=== PATIENT | female | born 1985 | race Caucasian/White ===

== ENCOUNTER 2022-10-15 22:23 | Outpatient (REF) | payer BC, SELFPAY ==
[2022-10-20 10:11] LABS: Age Gdln ACOG Testing Note (.); HPV Aptima Negative (Negative); IGP, Aptima HPV, rfx 16/18,45 Note (.)
== END 2022-10-15 22:24 | disposition home or self-care (01) ==
LOC: LAB 22:23
PROVIDERS: Visit Provider Obstetrics & Gynecology
DX: Z12.4 Encounter for screening for malignant neoplasm of cervix (principal)
CPT/HCPCS: 87624; G0145

== ENCOUNTER 2022-10-16 11:03 | Outpatient (OUT) | payer BC, SELFPAY ==
--- NOTE | 2022-10-16 11:08 | US_ITS ---
The [address] [address] Patient Name: OTTO DEL ROSARIO MRN: [id number] date: 1985 Sex: F Assigned Patient Location: US Current Patient Location: US Accession/Order Number: [id number] Exam Date: 10/16/2022 11:20 Report Date: 10/16/2022 13:09 At the request of: ELISSA SWIFT Procedure: US pelvis transvaginal EXAM: US pelvis transvaginal HISTORY: Enlarged uterus (N85.2) COMPARISON: Pelvic ultrasound 08/20/2021. TECHNIQUE: Real-time transvaginal imaging of the pelvis. Findings: The uterus is not identified consistent with hysterectomy. There are nabothian cysts identified. The right and left ovaries measure 1.8 x 1.4 x 1.7 and 3.8 x 3.4 x 2.5 cm. Left ovarian follicles. Otherwise, they are unremarkable bilaterally with blood flow identified. No adnexal mass or free pelvic fluid. IMPRESSION: 1. Surgically absent uterus. Electronically authenticated by: HARSH KEENAN Date: 10/16/2022 13:09
== END 2022-10-16 11:04 ==
LOC: US 11:04
PROVIDERS: Visit Provider Obstetrics & Gynecology
DX: N88.8 Other specified noninflammatory disorders of cervix uteri (principal); Z90.710 Acquired absence of both cervix and uterus
CPT/HCPCS: 76830

== ENCOUNTER 2023-02-24 11:53 | Emergency (ER) | payer BC, SELFPAY ==
[2023-02-24 12:02] VITALS: BP 156/108; PULSE 80; RESP 20; TEMP 36.5; O2SAT 100; BMI 31.1
--- NOTE | 2023-02-24 12:38 | ED.ABDPAIN1 ---
HPI - Abdominal Pain General Chief Complaint: Abdominal Pain Stated Complaint: ABDOMINAL PAIN Time Seen by Provider: 02/24/23 12:03 Source: patient Mode of arrival: walk-in Limitations: no limitations History of Present Illness HPI narrative: Developed left sided abdominal pain two days ago - pain radiates into the left flank and is associated with nausea, diarrhea. No vomiting. No fever or chills. Saw her PCP and was told to come to the Er for a CT scan and antibiotics . PMHX includes IBS but no dx of Crohn's, UC, diverticulitis. Prev had kidney stones but this feels totally different . PSHx = hysterectomy. Nothing taken for pain at home Related Data Home Medications Medication Instructions Recorded Confirmed atenolol 25 mg tablet 25 mg PO DAILY 02/24/23 02/24/23 cholecalciferol (vitamin D3) 50 2,000 unit PO DAILY 02/24/23 02/24/23 mcg (2,000 unit) tablet duloxetine 60 mg capsule,delayed 60 mg PO DAILY 02/24/23 02/24/23 release omeprazole 40 mg capsule,delayed 40 mg PO DAILY 02/24/23 02/24/23 release ondansetron 4 mg disintegrating 4 mg translingual Q6H PRN nausea 02/24/23 02/24/23 tablet and vomiting oxcarbazepine 300 mg tablet 300 mg PO DAILY 02/24/23 02/24/23 semaglutide 0.25 mg or 0.5 mg (2 0.25 mg subcut QWEEK 02/24/23 02/24/23 mg/3 mL) subcutaneous pen injector (Ozempic) topiramate 50 mg tablet 50 mg PO DAILY 02/24/23 02/24/23 Previous Rx's Medication Instructions Recorded hydrocodone 5 mg-acetaminophen 325 1 tab PO Q6H PRN pain #14 tabs 02/24/23 mg tablet ketorolac 10 mg tablet 10 mg PO Q8H PRN pain #14 tabs 02/24/23 ondansetron 4 mg disintegrating 4 mg PO Q6H PRN nausea and 02/24/23 tablet vomiting #14 tabs tamsulosin 0.4 mg capsule (Flomax) 0.4 mg PO DAILY #10 caps 02/24/23 Allergies Allergy/AdvReac Type Severity Reaction Status Date / Time No Known Drug Allergies Allergy Verified 02/24/23 11:57 PFSH PFSH Social History Smoking status: Never smoker Exam Narrative Exam Narrative: Nurses notes and vital signs reviewed and patient is not hypoxic. afebrile General: Well-appearing and in no apparent distress. Skin: Warm, dry, no pallor noted. No rash to flank or abdomen. Head: Normocephalic, atraumatic. Eye: Pupils are equal, round and EOMI. No scleral icterus. Cardiovascular: Regular Rate and Rhythm without murmur, gallop or rub. Respiratory: No accessory muscle use or respiratory distress. Lungs are clear to auscultation, no wheezing, rales or rhonchi Back: No midline thoracic or lumbar vertebral tenderness. Left CVA tenderness Musculoskeletal: normal ROM, no calf or popliteal tenderness, no lower extremity edema/swelling GI: Abdomen is soft, mildly distended. Normal bowel sounds. No solid or pulsatile masses appreciated. Diffuse umbilical, suprapubic and left sided tenderness to palpation with guarding. No rebound or rigidity noted. Neurological: A&O x4. No cranial nerve dysfunction observed. No truncal ataxia. Moves all extremities. Sensation intact. Psychiatric: Cooperative and interactive. Normal mood and affect. Constitutional Vital Signs, click to edit/add: Last Vital Signs Temp 97.7 F 02/24/23 12:02 Pulse 80 02/24/23 12:02 Resp 20 02/24/23 12:02 BP 156/108 H 02/24/23 12:02 Pulse Ox 100 02/24/23 12:02 O2 Del Method Room Air 02/24/23 12:02 Course Vital Signs Vital signs: Vital Signs Temperature 97.7 F 02/24/23 12:02 Pulse Rate 80 02/24/23 12:02 Respiratory Rate 20 02/24/23 12:02 Blood Pressure 156/108 H 02/24/23 12:02 Pulse Oximetry 100 02/24/23 12:02 Oxygen Delivery Method Room Air 02/24/23 12:02 Temperature 97.7 F 02/24/23 12:02 Pulse Rate 80 02/24/23 12:02 Respiratory Rate 20 02/24/23 12:02 Blood Pressure 156/108 H 02/24/23 12:02 Pulse Oximetry 100 02/24/23 12:02 Oxygen Delivery Method Room Air 02/24/23 12:02 MDM - Abdominal Pain MDM Narrative Medical decision making narrative: peripheral IV established and blood drawn and sent for testing. Urine was also ordered to be obtained and sent for testing. The patient was ordered to undergo CT scanning of the abdomen and pelvis with IV contrast. She was ordered to receive IV Toradol, IV Zofran and IV Dilaudid. Normal WBC, minimally decreased K+, Normal Lipase, negative UA. CT revealed 5mm left ureteral stone and additional bilateral nephroliths without obstruction, per radiologist. Additionally there is a left anterior abdominal wall vascular mass. I spoke to the radiologist and that is something that they can do here at [facility]. Tried to call Magy to schedule but she is out today. I left her a message and gave the patient an written prescription for the out-patient procedure - Magy will contact her to schedule. Lab Data Attestation: I reviewed the patient's lab results. Labs: Lab Results 02/24/23 Range/Units 12:16 WBC 10.7 (4.0-11.0) 10^3/uL RBC 5.38 (4.20-5.40) 10^6/uL Hgb 15.3 (12.0-16.0) g/dL Hct 47.2 (36.0-48.0) % MCV 87.7 (81.0-99.0) fL MCH 28.4 (26.7-34.0) pg MCHC 32.4 (29.9-35.2) g/dL RDW 12.5 (11.0-15.0) % Plt Count 394 (150-450) 10^3/uL MPV 8.9 L (9.5-13.5) fL Neut % (Auto) 58.4 (43.0-75.0) % Lymph % (Auto) 32.0 (20.5-60.0) % Robertson % (Auto) 7.2 (1.7-12.0) % Eos % (Auto) 1.3 (0.9-7.0) % Baso % (Auto) 0.8 (0.2-2.0) % Neut # (Auto) 6.3 (1.4-6.5) 10^3/uL Lymph # (Auto) 3.4 (1.2-3.8) 10^3/uL Robertson # (Auto) 0.8 (0.3-0.8) 10^3/uL Eos # (Auto) 0.1 (0.0-0.7) 10^3/uL Baso # (Auto) 0.1 (0.0-0.1) 10^3/uL Abs Immat Gran (auto) 0.03 (0.00-0.03) 10^3/uL Imm/Tot Granulo (auto) 0.3 (0.0-0.5) % Sodium 139 (136-145) mmol/L Potassium 3.3 L (3.5-5.1) mmol/L Chloride 104 (98-107) mmol/L Carbon Dioxide 26.9 (21.0-32.0) mmol/L Anion Gap 11.4 BUN 8.0 (7.0-18.0) mg/dL Creatinine 0.84 (0.55-1.02) mg/dL Est GFR ( Amer) >60 (>=60) Est GFR (Non-Af Amer) >60 (>=60) BUN/Creatinine Ratio 9.5 Glucose 87 (74-106) mg/dL Calcium 8.8 (8.5-10.1) mg/dL Total Bilirubin 0.3 (0.2-1.0) mg/dL AST 13 L (15-37) U/L ALT 14 (14-59) U/L Alkaline Phosphatase 127 H (46-116) U/L Total Protein 7.3 (6.4-8.2) g/dL Albumin 3.5 (3.4-5.0) g/dL Globulin 3.8 g/dL Albumin/Globulin Ratio 0.9 Lipase 35.0 (16.0-77.0) U/L Urine Color Lt. yellow (YELLOW) Urine Clarity Clear (CLEAR) Urine pH 7.0 (5.0-9.0) Ur Specific [place] 1.015 (1.005-1.025) Urine Protein Negative (NEG/TRACE) mg/dL Urine Glucose (UA) Negative (NEGATIVE) mg/dL Urine Ketones Negative (NEGATIVE) mg/dL Urine Occult Blood Negative (NEGATIVE) Urine Nitrite Negative (NEGATIVE) Urine Bilirubin Negative (NEGATIVE) Urine Urobilinogen 0.2 (0.2-1.0) EU/dL Ur Leukocyte Esterase Negative (NEGATIVE) Imaging Data CT scan - abdomen: Radiologist's impression: Patient Name: OTTO DEL ROSARIO MRN: [id number] date: 1985 Sex: F Assigned Patient Location: ER Current Patient Location: ER Accession/Order Number: [id number] Exam Date: 02/24/2023 13:18 Report Date: 02/24/2023 14:41 At the request of: GILLIAN ROSE Procedure: CT abdomen pelvis w con EXAMINATION: CT abdomen pelvis w con HISTORY: left abd pain , nausea and vomiting, diarrhea, lower abdominal pain COMPARISON: CT abdomen pelvis 08/05/2022, 03/07/2019 TECHNIQUE: Axial, Coronal, and Sagittal images were obtained without and/or with IV contrast as indicated by examination type. Dose reduction techniques were achieved by using automated exposure control and/or adjustment of mA and/or kV according to patient size and/or use of iterative reconstruction technique. FINDINGS: LUNG BASES: No visible pulmonary or pleural disease. LIVER: No enlargement, atrophy, suspicious density, or significant focal lesion. BILIARY: No dilatation or calcification. PANCREAS: No lesion, fluid collection, or abnormal duct dilatation. SPLEEN: No enlargement or focal lesion. ADRENALS: No mass or enlargement. KIDNEYS: 5 mm nonobstructing stone within mid left ureter. Additional nonobstructing stones within both kidneys. BOWEL/MESENTERY: Air and fluid-filled loops of small bowel without abnormal dilation. No visible mass, obstruction, or bowel wall thickening. AORTA/VASCULAR: No aneurysm or dissection. RETROPERITONEUM: No mass or adenopathy. LYMPH NODES: No adenopathy. URINARY BLADDER: No visible focal wall thickening, lesion, or calculus. PELVIC ORGANS: Slightly heterogeneous uterus; nonspecific. Both ovaries contain multiple cysts/follicles. No free fluid. ABDOMINAL WALL: Heterogeneous vascular mass within lower left rectus abdominis muscle, 10.3 x 6.9 x 3.5 cm. BONES: No bony lesion or fracture. OTHER: Negative. IMPRESSION: 1. Air and fluid-filled small bowel without wall thickening or obstruction; possible enteritis. 2. Bilateral nephrolithiasis and nonobstructing 5 mm stone within mid left ureter. 3. Heterogeneous density of the uterus; nonspecific. Consider ultrasound follow-up. 4. Left anterior abdominal wall vascular mass concerning for neoplasm, although not typically expected for patient's age. The change in size and appearance warrants biopsy. This should be amenable to ultrasound-guided soft tissue biopsy. Electronically authenticated by: BRIAN SINGER Date: 02/24/2023 14:41 Discharge Plan Discharge Chief Complaint: Abdominal Pain Clinical Impression: Left ureteral stone, Abdominal wall mass Patient Disposition: Home, Self-Care Time of Disposition Decision: 15:20 Prescriptions / Home Meds: New hydrocodone-acetaminophen 5-325 mg tablet 1 tab PO Q6H PRN (Reason: pain) Qty: 14 0RF ketorolac 10 mg tablet 10 mg PO Q8H PRN (Reason: pain) Qty: 14 0RF tamsulosin [Flomax] 0.4 mg capsule 0.4 mg PO DAILY Qty: 10 0RF ondansetron 4 mg tablet,disintegrating 4 mg PO Q6H PRN (Reason: nausea and vomiting) Qty: 14 0RF No Action atenolol 25 mg tablet 25 mg PO DAILY cholecalciferol (vitamin D3) 50 mcg (2,000 unit) tablet 2,000 unit PO DAILY duloxetine 60 mg capsule,delayed release(DR/EC) 60 mg PO DAILY omeprazole 40 mg capsule,delayed release(DR/EC) 40 mg PO DAILY ondansetron 4 mg tablet,disintegrating 4 mg translingual Q6H PRN (Reason: nausea and vomiting) Ozempic 0.25 mg or 0.5 mg (2 mg/3 mL) pen injector 0.25 mg subcut QWEEK Rx Instructions: for 4 weeks topiramate 50 mg tablet 50 mg PO DAILY oxcarbazepine 300 mg tablet 300 mg PO DAILY Instructions: Ureteral Stones (ED), Soft Tissue Mass (ED) Additional Instructions: needs to schedule follow up with radiology for US guided biopsy of superficial adbominal mass Stand Alone Forms: Portal Instructions Referrals: Joesph Gary MD [Physician] - As soon as possible Joseph Crawford MD [Primary Care Provider] - 1 week Wagner Delarosa MD [Physician] - As soon as possible
[2023-02-24] MEDS: HYDROMORPHONE HCL 1 MG/ML CARTRIDGE IVP (12:43)
[2023-02-24] MEDS: KETOROLAC TROMETHAMINE 30 MG/ML VIAL IVP (12:43)
[2023-02-24] MEDS: 0.9 % SODIUM CHLORIDE 1,000 ML 999 ML IV (12:43)
[2023-02-24] MEDS: ONDANSETRON PF 4 MG/2 ML VIAL IV (12:43)
[2023-02-24 12:54] LABS: Basophils Absolute Auto 0.1 10^3/uL (0.0-0.1); Basophils Percent Auto 0.8 % (0.2-2.0); Eosinophils Absolute Auto 0.1 10^3/uL (0.0-0.7); Eosinophils Percent Auto 1.3 % (0.9-7.0); Hematocrit 47.2 % (36.0-48.0); Hemoglobin 15.3 g/dL (12.0-16.0); Immature Granulocytes Abs Auto 0.03 10^3/uL (0.00-0.03); Immature Granulocytes Pct Auto 0.3 % (0.0-0.5); Lymphocytes Absolute Auto 3.4 10^3/uL (1.2-3.8); Mean Corpuscular HGB Conc 32.4 g/dL (29.9-35.2); Mean Corpuscular Hemoglobin 28.4 pg (26.7-34.0); Mean Corpuscular Volume 87.7 fL (81.0-99.0); Mean Platelet Volume 8.9 fL (9.5-13.5); Monocytes Absolute Auto 0.8 10^3/uL (0.3-0.8); Monocytes Percent Auto 7.2 % (1.7-12.0); Neutrophils Absolute Auto 6.3 10^3/uL (1.4-6.5); Neutrophils Percent Auto 58.4 % (43.0-75.0); Platelet Count 394 10^3/uL (150-450); Red Blood Count 5.38 10^6/uL (4.20-5.40); Red Cell Distribution Width 12.5 % (11.0-15.0); White Blood Count 10.7 10^3/uL (4.0-11.0)
[2023-02-24 13:05] LABS: Alanine Aminotransferase 14 U/L (14-59); Albumin Globulin Ratio 0.9; Albumin Level 3.5 g/dL (3.4-5.0); Alkaline Phosphatase 127 U/L (46-116); Anion Gap 11.4; Aspartate Amino Transferase 13 U/L (15-37); BUN Creatinine Ratio 9.5; Bilirubin Total 0.3 mg/dL (0.2-1.0); Bilirubin Urine NEGATIVE (NEGATIVE); Blood Urine NEGATIVE (NEGATIVE); Calcium 8.8 mg/dL (8.5-10.1); Carbon Dioxide 26.9 mmol/L (21.0-32.0); Chloride 104 mmol/L (98-107); Clarity Urine CLEAR (CLEAR); Color Urine LT. YELLOW (YELLOW); Estimated GFR (African America >60 (>=60); Estimated GFR (Non-African Ame >60 (>=60); Globulin 3.8 g/dL; Glucose 87 mg/dL (74-106); Glucose Urine UA NEGATIVE (NEGATIVE); Ketones Urine NEGATIVE (NEGATIVE); Leukocyte Esterase Urine NEGATIVE (NEGATIVE); Nitrite Urine NEGATIVE (NEGATIVE); Potassium 3.3 mmol/L (3.5-5.1); Protein Urine NEGATIVE (NEG/TRACE); Sodium 139 mmol/L (136-145); Specific Gravity Urine 1.015 (1.005-1.025); Total Protein 7.3 g/dL (6.4-8.2); Urobilinogen Urine 0.2 EU/dL (0.2-1.0)
[2023-02-24 13:06] LABS: Urine Microscopic Indicated NO
[2023-02-24] MEDS: MEPERIDINE HCL/PF 25 MG/ML VIAL 50 MG IV (14:22)
== END 2023-02-24 15:42 | disposition home or self-care (01) ==
PROVIDERS: Emergency Provider Emergency Medicine; PCP Family Medicine
DX: N20.1 Calculus of ureter (principal); R19.00 Intra-abdominal and pelvic swelling, mass and lump, unspecified site; K58.9 Irritable bowel syndrome, unspecified; Z87.442 Personal history of urinary calculi; Z90.710 Acquired absence of both cervix and uterus; Z79.899 Other long term (current) drug therapy
CPT/HCPCS: 36415; 74177; 80053; 81003; 83690; 85025; 87507; 96361; 96374; 96375; 99285; J1170; Q9967

== ENCOUNTER 2023-02-27 11:55 | Day surgery (SDC) | payer BC, SELFPAY ==
--- NOTE | 2023-02-27 12:05 | US_ITS ---
[address] [address] Patient Name: OTTO DEL ROSARIO MRN: [id number] date: 1985 Sex: F Assigned Patient Location: US Current Patient Location: US Accession/Order Number: [id number] Exam Date: 02/27/2023 12:06 Report Date: 02/27/2023 13:33 At the request of: SHARITA SOTELO Procedure: US biopsy ndl core soft tissue EXAMINATION: US biopsy ndl core soft tissue HISTORY: Left Abdominal Wall Mass COMPARISON: CT abdomen pelvis 02/24/2023 TECHNIQUE: After obtaining informed consent, ultrasound-guided fine needle aspiration was performed in the usual sterile manner. FINDINGS: IMAGING: Ultrasound. BIOPSY NEEDLE: 18-gauge spring-loaded core biopsy needle LOCATION: Lower left anterior abdominal wall mass within the rectus abdominis muscle SPECIMEN TYPE: Cellular tissue. LOCAL ANESTHETIC: Buffered Xylocaine. COMPLICATIONS: None. LABORATORY: Prepared slide smears and washings for cell block evaluation. OTHER: Negative. PATHOLOGY: Pending. An addendum will be added when results are available. US/US biopsy ndl core soft tissue IMPRESSION: 1. Uneventful ultrasound guided fine needle aspiration (FNA). 2. Pathology results are pending. Electronically authenticated by: BRIAN SINGER Date: 02/27/2023 13:33
[2023-02-27 12:30] VITALS: BP 146/102; PULSE 98; TEMP 36.7; O2SAT 98
[2023-02-27] MEDS: LIDOCAINE HCL 10 ML, SODIUM BICARBONATE 1 MEQ INJ (13:10)
--- NOTE | 2023-02-27 14:07 | PC.NURSE ---
1230 Pt teary at times when discussing the potential results from biopsy and voiced her worries. Pt given comfort and support suring biopsy.
== END 2023-02-27 13:40 | disposition home or self-care (01) ==
PROVIDERS: Radiology Diagnostic Radiology; PCP Family Medicine; Visit Provider Family Medicine
DX: N80.C11 Endometriosis of the anterior abdominal wall, fascia and muscular layers (principal)
CPT/HCPCS: 20206; 76942; 88305; 88341; 88342

== ENCOUNTER 2023-04-05 16:02 | Emergency (ER) | payer BC, SELFPAY ==
[2023-04-05] VITALS (10 sets, daily range): BP systolic 122–141; BP diastolic 88–108; PULSE 97–115; RESP 18–24; TEMP 37.3; O2SAT 97–100; BMI 30.2
--- NOTE | 2023-04-05 16:27 | XR_ITS ---
The [address] [address] Patient Name: OTTO DEL ROSARIO MRN: [id number] date: 1985 Sex: F Assigned Patient Location: ER Current Patient Location: ER Accession/Order Number: [id number] Exam Date: 04/05/2023 17:03 Report Date: 04/05/2023 17:26 At the request of: GERI OCHOA Procedure: XR chest 1V EXAMINATION: XR chest 1V HISTORY: Shortness of breath COMPARISON: Chest x-rays 03/22/2017 TECHNIQUE: Portable chest FINDINGS: The lung parenchyma is free of consolidation or infiltrate. No pneumothorax or pleural effusion. The cardiac, mediastinal and hilar contours are normal. The visualized osseous structures exhibit no gross abnormality. XR/XR chest 1V IMPRESSION: No acute cardiopulmonary abnormality. Electronically authenticated by: ASHLEY DAUGHERTY Date: 04/05/2023 17:26
--- NOTE | 2023-04-05 16:27 | ECG_ITS ---
The [facility] Test Date: 2023-04-05 Pat Name: OTTO DEL ROSARIO Department: Room: - Gender: Female [employer]: : 1985 Requested By: SHARITA SOTELO Order Number: [id number] Reading MD: GAVI GILL Measurements Intervals [place] Rate: 109 P: 72 VA: 146 QRS: 80 QRSD: 90 T: 65 QT: 318 QTc: 382 Interpretive Statements 1120 Sinus tachycardia 4068 Nonspecific [place] abnormality 9140 abnormal rhythm ECG No previous ECG available for comparison Electronically Signed On 04-05-2023 20:03:42 EST by GAVI GILL
--- NOTE | 2023-04-05 16:31 | ED_ITS ---
HPI - General Adult General Chief complaint: Arrhythmia/Palpitations Stated complaint: Palpitations, Nausea/Vomiting Time Seen by Provider: 04/05/23 16:20 Source: patient Mode of arrival: walk-in Limitations: no limitations History of Present Illness HPI narrative: patient is a 37-year-old female presents to the Emergency Room with concerns of chest pain palpitations and nausea that started around noon today. 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 Patient appears very anxious. States she previously was not feeling well earlier in the week, had a recent change in her blood pressure medication from atenolol to lisinopril/hydrochlorothiazide. Patient states her blood pressure has been the best it has ever been since that switch. She has a strong family history of coronary artery disease at a young age. Patient did not take any medication prior to arrival but also notes a moderate headache. Patient states she recently had a biopsy and is meeting with specialist at for a endometriosis mass removal. Patient has family present at bedside. Onset (ago): hour(s) (4.5) Location: Reports chest Radiation: Reports non-radiation and extremity Severity: moderate Quality: Reports constant Relieving factors: Reports none Exacerbating factors: Reports none Related Data Home Medications Medication Instructions Recorded Confirmed atenolol 25 mg tablet 25 mg PO DAILY 02/24/23 04/05/23 cholecalciferol (vitamin D3) 50 2,000 unit PO DAILY 02/24/23 02/27/23 mcg (2,000 unit) tablet duloxetine 60 mg capsule,delayed 60 mg PO DAILY 02/24/23 02/27/23 release omeprazole 40 mg capsule,delayed 40 mg PO DAILY 02/24/23 02/27/23 release ondansetron 4 mg disintegrating 4 mg translingual Q6H PRN nausea 02/24/23 02/27/23 tablet and vomiting oxcarbazepine 300 mg tablet 300 mg PO DAILY 02/24/23 02/27/23 semaglutide 0.25 mg or 0.5 mg (2 0.25 mg subcut QWEEK 10/24/23 10/27/23 mg/3 mL) subcutaneous pen injector (Ozempic) topiramate 50 mg tablet 50 mg PO DAILY 02/24/23 02/27/23 lisinopril-hydrochlorothiazide .ROUTE 04/05/23 Previous Rx's Medication Instructions Recorded hydrocodone 5 mg-acetaminophen 325 1 tab PO Q6H PRN pain #14 tabs 02/24/23 mg tablet ketorolac 10 mg tablet 10 mg PO Q8H PRN pain #14 tabs 02/24/23 ondansetron 4 mg disintegrating 4 mg PO Q6H PRN nausea and 02/24/23 tablet vomiting #14 tabs tamsulosin 0.4 mg capsule (Flomax) 0.4 mg PO DAILY #10 caps 02/24/23 ondansetron HCl 4 mg tablet 4 mg PO Q6H PRN nausea and 04/05/23 vomiting #12 tabs potassium chloride 20 mEq oral 40 meq PO DAILY 3 days #6 ea 04/05/23 packet Allergies Allergy/AdvReac Type Severity Reaction Status Date / Time No Known Drug Allergies Allergy Verified 02/27/23 13:52 Review of Systems ROS Constitutional Denies: fever or chills Eyes Denies: change in vision Ears, nose, mouth, and throat Denies: throat pain Cardiovascular Reports: chest pain, palpitations and shortness of breath with exertion; Denies: edema or swelling of feet/ankles Respiratory Reports: shortness of breath Gastrointestinal Reports: nausea and vomiting; Denies: abdominal pain Musculoskeletal Denies: back pain Psychiatric Denies: anxiety Endocrine Denies: excessive urination [facility] Medical History (Updated 04/05/23 @ 18:47 by SEBASTIAN Adams) Abdominal wall mass of left lower quadrant ?R19.04 - Left lower quadrant abdominal swelling, mass and lump (ICD-10) Depression ?F32.A - Depression, unspecified (ICD-10) DVT (deep venous thrombosis) ?I82.409 - Acute embolism and thrombosis of unspecified deep veins of unspecified lower extremity (ICD-10) HTN (hypertension) ?I10 - Essential (primary) hypertension (ICD-10) IBS (irritable bowel syndrome) ?K58.9 - Irritable bowel syndrome without diarrhea (ICD-10) Migraines ?G43.909 - Migraine, unspecified, not intractable, without status migrainosus (ICD-10) Renal lithiasis ?N20.0 - Calculus of kidney (ICD-10) Surgical History (Updated 02/27/23 @ 13:55 by Alecia Fine) H/O colonoscopy ?Z98.890 - Other specified postprocedural states (ICD-10) H/O ultrasound guided needle biopsy ?Z98.890 - Other specified postprocedural states (ICD-10) History of endometrial ablation ?Z98.890 - Other specified postprocedural states (ICD-10) History of esophagogastroduodenoscopy (EGD) ?Z98.890 - Other specified postprocedural states (ICD-10) History of hysterectomy ?Z90.710 - Acquired absence of both cervix and uterus (ICD-10) History of tonsillectomy ?Z90.89 - Acquired absence of other organs (ICD-10) Social History Smoking status: Never smoker Exam Narrative Exam Narrative: Nurses notes and vital signs reviewed and patient is not hypoxic. General: The patient appears well , but anxious. Skin: Warm, dry, no pallor noted. Head: Normocephalic, atraumatic Neck: Supple, trachea mid-line, no tenderness, no lymphadenopathy Eye: Pupils are equal, round and reactive to light, EOMI Ears, Nose, Mouth, and Throat: TM are clear, normal light reflex, oral mucosa is moist, no posterior oropharynx erythema or hypertrophy, uvula is mid-line Cardiovascular: Regular Rate and Rhythm Respiratory: Patient is in no distress, no accessory muscle use, lungs are clear to auscultation, no wheezing, rales or rhonchi. Chest Wall: no tenderness Back: non-tender, no CVA tenderness Musculoskeletal: normal ROM, no tenderness, no swelling GI: Normal bowel sounds,tenderness left lower quadrant patient notes chronic with known endometrial mass. No rebound, guarding, or rigidity noted. Neurological: A&O x4 Psychiatric: Cooperative Constitutional Vital Signs, click to edit/add: Last Vital Signs Temp 99.2 F 04/05/23 16:07 Pulse 98 H 04/05/23 17:40 Resp 22 04/05/23 17:40 BP 141/97 H 04/05/23 17:30 Pulse Ox 100 04/05/23 17:40 O2 Del Method Room Air 04/05/23 16:07 Course Vital Signs Vital signs: Vital Signs Temperature 99.2 F 04/05/23 16:07 Pulse Rate 115 H 04/05/23 16:07 Respiratory Rate 18 04/05/23 16:07 Blood Pressure 134/93 H 04/05/23 16:07 Pulse Oximetry 99 04/05/23 16:07 Oxygen Delivery Method Room Air 04/05/23 16:07 Temperature 99.2 F 04/05/23 16:07 Pulse Rate 98 H 04/05/23 17:40 Respiratory Rate 22 04/05/23 17:40 Blood Pressure 141/97 H 04/05/23 17:30 Pulse Oximetry 100 04/05/23 17:40 Oxygen Delivery Method Room Air 04/05/23 16:07 Medical Decision Making MDM Narrative Medical decision making narrative: patient medicated with Tylenol 1 g for her headache, aspirin 162 mg by mouth. Patient notes history of multiple family members of young age with coronary disease. Her initial EKG without evidence of ST elevation. Patient had been on atenolol for some time before recent switch and noting elevated heart rate and palpitations today. patient noted to have hypokalemia. We discussed replacement, nausea resolved with oral Zofrran. Patient received 1 L IV fluids, magnesium within normal limits. Patient given 50 mEq oral potassium able to retain it. Reevaluated her abdomen, patient notes soreness she has there is chronic and has been the same throughout her recent evaluation. Abdomen appears nonsurgical. She reports regular bowel movements with her last one today at noon. Repetitive vomiting and nausea since diagnosis with her endometriosis mass, reviewed prior CT scans ?2 this year along with a biopsy. with serial clinical exams I feel her elevated white blood cell count is from her repetitive dry heaving, abdomen does not appear acutely tender and patient notes pain is been chronic on her abdominal wall. Patient does not require repeat CT scan at this time given scan this year with radiation safety considered. She will return if symptoms worsen. patient has been able to tolerate by mouth potassium since oral Zofran. She'll be given a dose of Protonix IV and Zofran. Prior to discharge Patient reevaluated, appears much improved, her heart rate has come down within normal range and she was ambulated around the Emergency Room, patient feels like she is getting back to normal, notes the chest pain is gone but she can still feel irritation in her chest, we discussed her repetitive vomiting over the past few weeks with episode peaking before coming in this evening. Her abdomen appears nonsurgical but she will return to the Emergency Room for symptoms worse n or new symptoms develop. We mutually discussed observation stay to make sure she can keep down oral fluids and patient would like to go home. She doesn't tend to work tomorrow but may need the day off if she is not feeling well. We discussed the importance of following up with Dr. Sotelo to discusss her blood pressure medications and potassium management going forward, she'll be sent home with a prescription of 40 mEq a day for three days pending an appointment. The patient is to followup with primary care physician tomorrow or to return to the emergency department should any of the signs or symptoms worsen or new symptoms develop. Patient had questions answered. The patient agrees with the following Diagnosis and Treatment plan and the patient will be discharged home. Medical Records Medical records narrative: At the request of: SHARITA OSTELO Procedure: US biopsy ndl core soft tissue Begin Addendum #1 COLLECTED DATE/TIME: 02/27/2023 11:55 EDT Final Diagnosis Report for [facility] [place], [place] SOFT TISSUE, LEFT ABDOMINAL WALL MASS, ULTRASOUND GUIDED CORE BIOPSY: -CONSISTENT WITH ENDOMETRIOSIS, SEE COMMENT. 03/06/[address] Rio Berrios. Verified with Kirby Bajwa that report was received. 03/06/[address] Sotelo. Original Report EXAMINATION: US biopsy ndl core soft tissue HISTORY: Left Abdominal Wall Mass COMPARISON: CT abdomen pelvis 02/24/2023 TECHNIQUE: After obtaining informed consent, ultrasound-guided fine needle aspiration was performed in the usual sterile manner. FINDINGS: IMAGING: Ultrasound. BIOPSY NEEDLE: 18-gauge spring-loaded core biopsy needle LOCATION: Lower left anterior abdominal wall mass within the rectus abdominis muscle SPECIMEN TYPE: Cellular tissue. LOCAL ANESTHETIC: Buffered Xylocaine. COMPLICATIONS: None. LABORATORY: Prepared slide smears and washings for cell block evaluation. OTHER: Negative. PATHOLOGY: Pending. An addendum will be added when results are available. IMPRESSION: 1. Uneventful ultrasound guided fine needle aspiration (FNA). 2. Pathology results are pending. Electronically authenticated by: BRIAN SINGER Date: 03/12/2023 15:36 Ct abd pelvis on 02/24IMPRESSION: 1. Air and fluid-filled small bowel without wall thickening or obstruction; possible enteritis. 2. Bilateral nephrolithiasis and nonobstructing 5 mm stone within mid left ureter. 3. Heterogeneous density of the uterus; nonspecific. Consider ultrasound follow-up. 4. Left anterior abdominal wall vascular mass concerning for neoplasm, although not typically expected for patient's age. The change in size and appearance warrants biopsy. This should be amenable to ultrasound-guided soft tissue biopsy. Electronically authenticated by: BRIAN SINGER Date: 02/24/2023 14:41 ct August 2022 Lab Data Labs: Lab Results 04/05/23 04/05/23 04/05/23 Range/Units 16:40 16:44 18:10 WBC 12.7 H (4.0-11.0) 10^3/uL RBC 5.77 H (4.20-5.40) 10^6/uL Hgb 16.1 H (12.0-16.0) g/dL Hct 49.8 H (36.0-48.0) % MCV 86.3 (81.0-99.0) fL MCH 27.9 (26.7-34.0) pg MCHC 32.3 (29.9-35.2) g/dL RDW 13.0 (11.0-15.0) % Plt Count 380 (150-450) 10^3/uL MPV 8.9 L (9.5-13.5) fL Neut % (Auto) 58.4 (43.0-75.0) % Lymph % (Auto) 32.1 (20.5-60.0) % Pope % (Auto) 7.6 (1.7-12.0) % Eos % (Auto) 0.7 L (0.9-7.0) % Baso % (Auto) 0.8 (0.2-2.0) % Neut # (Auto) 7.4 H (1.4-6.5) 10^3/uL Lymph # (Auto) 4.1 H (1.2-3.8) 10^3/uL Pope # (Auto) 1.0 H (0.3-0.8) 10^3/uL Eos # (Auto) 0.1 (0.0-0.7) 10^3/uL Baso # (Auto) 0.1 (0.0-0.1) 10^3/uL Abs Immat Gran (auto) 0.05 H (0.00-0.03) 10^3/uL Imm/Tot Granulo (auto) 0.4 (0.0-0.5) % D-Dimer 0.30 (<=0.59) mg/L FEU Sodium 139 (136-145) mmol/L Potassium 2.9 L* (3.5-5.1) mmol/L Chloride 101 (98-107) mmol/L Carbon Dioxide 26.4 (21.0-32.0) mmol/L Anion Gap 14.5 BUN 12.0 (7.0-18.0) mg/dL Creatinine 0.91 (0.55-1.02) mg/dL Est GFR ( Amer) >60 (>=60) Est GFR (Non-Af Amer) >60 (>=60) BUN/Creatinine Ratio 13.2 Glucose 81 (74-106) mg/dL Lactate 1.0 (0.4-2.0) mmol/L Calcium 8.8 (8.5-10.1) mg/dL Magnesium 2.0 (1.8-2.4) mg/dL Total Bilirubin 0.4 (0.2-1.0) mg/dL AST 16 (15-37) U/L ALT 12 L (14-59) U/L Alkaline Phosphatase 109 (46-116) U/L Troponin I High Sens 6.6 7.1 (4.0-51.3) pg/mL Total Protein 7.7 (6.4-8.2) g/dL Albumin 3.9 (3.4-5.0) g/dL Globulin 3.8 g/dL Albumin/Globulin Ratio 1.0 Amylase 52 (25-115) U/L Lipase 49.0 (16.0-77.0) U/L TSH & Free T4 Interp 1.526 (0.358-3.740) Serum HCG, Qual Negative (NEGATIVE) Urine Color Lt. yellow (YELLOW) Urine Clarity Clear (CLEAR) Urine pH 6.0 (5.0-9.0) Ur Specific [place] 1.015 (1.005-1.025) Urine Protein Negative (NEG/TRACE) mg/dL Urine Glucose (UA) Negative (NEGATIVE) mg/dL Urine Ketones Negative (NEGATIVE) mg/dL Urine Occult Blood Trace-i (NEGATIVE) Urine Nitrite Negative (NEGATIVE) Urine Bilirubin Negative (NEGATIVE) Urine Urobilinogen 0.2 (0.2-1.0) EU/dL Ur Leukocyte Esterase Negative (NEGATIVE) Urine RBC 0-2 (0-2) #/HPF Urine WBC None seen (NONE SEEN) #/HPF Ur Squamous Epith Cells Few A (NONE/RARE) #/LPF Urine Crystals None seen (None Seen) #/HPF Urine Bacteria Trace A (NONE SEEN) #/HPF Urine Casts None seen (NONE SEEN) #/LPF Urine Mucus None seen (NONE SEEN) Ur Culture Indicated? No Imaging Data Chest x-ray: My impression: At the request of: GERI OCHOA Procedure: XR chest 1V EXAMINATION: XR chest 1V HISTORY: Shortness of breath COMPARISON: Chest x-rays 03/22/2017 TECHNIQUE: Portable chest FINDINGS: The lung parenchyma is free of consolidation or infiltrate. No pneumothorax or pleural effusion. The cardiac, mediastinal and hilar contours are normal. The visualized osseous structures exhibit no gross abnormality. IMPRESSION: No acute cardiopulmonary abnormality. Electronically authenticated by: ASHLEY DAUGHERTY Date: 04/05/2023 17:26 ECG Data Attestation: I personally reviewed and interpreted this ECG as follows: Interpretation: EKG interpretation: Emergency Department physician interpretation, normal sinustachycardia one oh nine no ectopy, no ST segment elevation, normal axis. Discharge Plan Discharge Chief Complaint: Arrhythmia/Palpitations Clinical Impression: Palpitations, Nausea & vomiting, Acute hypokalemia Patient Disposition: Home, Self-Care Time of Disposition Decision: 18:47 Condition: Good Prescriptions / Home Meds: New ondansetron HCl 4 mg tablet 4 mg PO Q6H PRN (Reason: nausea and vomiting) Qty: 12 0RF potassium chloride 20 mEq packet 40 meq PO DAILY 3 Days Qty: 6 0RF No Action lisinopril-hydrochlorothiazide .ROUTE atenolol 25 mg tablet 25 mg PO DAILY Hold Instructions: changed cholecalciferol (vitamin D3) 50 mcg (2,000 unit) tablet 2,000 unit PO DAILY duloxetine 60 mg capsule,delayed release(DR/EC) 60 mg PO DAILY omeprazole 40 mg capsule,delayed release(DR/EC) 40 mg PO DAILY ondansetron 4 mg tablet,disintegrating 4 mg translingual Q6H PRN (Reason: nausea and vomiting) Ozempic 0.25 mg or 0.5 mg (2 mg/3 mL) pen injector 0.25 mg subcut QWEEK Rx Instructions: for 4 weeks, Saturdays topiramate 50 mg tablet 50 mg PO DAILY oxcarbazepine 300 mg tablet 300 mg PO DAILY hydrocodone-acetaminophen 5-325 mg tablet 1 tab PO Q6H PRN (Reason: pain) Qty: 14 0RF ketorolac 10 mg tablet 10 mg PO Q8H PRN (Reason: pain) Qty: 14 0RF tamsulosin [Flomax] 0.4 mg capsule 0.4 mg PO DAILY Qty: 10 0RF ondansetron 4 mg tablet,disintegrating 4 mg PO Q6H PRN (Reason: nausea and vomiting) Qty: 14 0RF Instructions: Hypokalemia (ED), Acute Nausea and Vomiting (ED), Acute Nausea and Vomiting (DC) Stand Alone Forms: Portal Instructions Referrals: Sharita Sotelo MD [Primary Care Provider] - As soon as possible
[2023-04-05] MEDS: 0.9 % SODIUM CHLORIDE 1,000 ML 999 ML IV (16:51)
[2023-04-05] MEDS: ASPIRIN 81 MG TAB.CHEW 162 MG PO (16:51)
[2023-04-05] MEDS: ACETAMINOPHEN 500 MG TABLET 1000 MG PO (16:51)
[2023-04-05] MEDS: ONDANSETRON PF 4 MG/2 ML VIAL IV ×2 (16:51→18:55)
[2023-04-05 16:55] LABS: Bilirubin Urine NEGATIVE (NEGATIVE); Blood Urine TRACE-I (NEGATIVE); Clarity Urine CLEAR (CLEAR); Color Urine LT. YELLOW (YELLOW); Glucose Urine UA NEGATIVE (NEGATIVE); Ketones Urine NEGATIVE (NEGATIVE); Leukocyte Esterase Urine NEGATIVE (NEGATIVE); Nitrite Urine NEGATIVE (NEGATIVE); Protein Urine NEGATIVE (NEG/TRACE); Specific Gravity Urine 1.015 (1.005-1.025); Urobilinogen Urine 0.2 EU/dL (0.2-1.0)
[2023-04-05 16:55] LABS: Basophils Absolute Auto 0.1 10^3/uL (0.0-0.1); Basophils Percent Auto 0.8 % (0.2-2.0); Eosinophils Absolute Auto 0.1 10^3/uL (0.0-0.7); Eosinophils Percent Auto 0.7 % (0.9-7.0); Hematocrit 49.8 % (36.0-48.0); Hemoglobin 16.1 g/dL (12.0-16.0); Immature Granulocytes Abs Auto 0.05 10^3/uL (0.00-0.03); Immature Granulocytes Pct Auto 0.4 % (0.0-0.5); Lymphocytes Absolute Auto 4.1 10^3/uL (1.2-3.8); Lymphocytes Percent Auto 32.1 % (20.5-60.0); Mean Corpuscular HGB Conc 32.3 g/dL (29.9-35.2); Mean Corpuscular Hemoglobin 27.9 pg (26.7-34.0); Mean Corpuscular Volume 86.3 fL (81.0-99.0); Mean Platelet Volume 8.9 fL (9.5-13.5); Monocytes Percent Auto 7.6 % (1.7-12.0); Neutrophils Absolute Auto 7.4 10^3/uL (1.4-6.5); Neutrophils Percent Auto 58.4 % (43.0-75.0); Platelet Count 380 10^3/uL (150-450); Red Blood Count 5.77 10^6/uL (4.20-5.40); White Blood Count 12.7 10^3/uL (4.0-11.0)
[2023-04-05 16:59] LABS: Urine Microscopic Indicated YES
[2023-04-05 17:02] LABS: Bacteria Urine TRACE #/HPF (NONE SEEN); Cast Seen? NONE SEEN #/LPF (NONE SEEN); Crystals Seen? None Seen #/HPF (None Seen); Mucus Urine NONE SEEN (NONE SEEN); RBC Urine 0-2 #/HPF (0-2); Squamous Epithelial Cell Urine FEW #/LPF (NONE/RARE); Urine Culture Indicated NO; WBC Urine NONE SEEN #/HPF (NONE SEEN)
[2023-04-05 17:05] LABS: Amylase 52 U/L (25-115); HCG Qualitative NEGATIVE (NEGATIVE)
[2023-04-05 17:13] LABS: Alanine Aminotransferase 12 U/L (14-59); Albumin Level 3.9 g/dL (3.4-5.0); Alkaline Phosphatase 109 U/L (46-116); Anion Gap 14.5; Aspartate Amino Transferase 16 U/L (15-37); BUN Creatinine Ratio 13.2; Bilirubin Total 0.4 mg/dL (0.2-1.0); Calcium 8.8 mg/dL (8.5-10.1); Carbon Dioxide 26.4 mmol/L (21.0-32.0); Chloride 101 mmol/L (98-107); Estimated GFR (African America >60 (>=60); Estimated GFR (Non-African Ame >60 (>=60); Globulin 3.8 g/dL; Glucose 81 mg/dL (74-106); Sodium 139 mmol/L (136-145); Total Protein 7.7 g/dL (6.4-8.2); Troponin I High Sensitivity 6.6 pg/mL (4.0-51.3)
[2023-04-05 17:17] LABS: TSH W/ REFLEX FT4 1.526 (0.358-3.740)
[2023-04-05 17:19] LABS: Potassium 2.9 mmol/L (3.5-5.1)
[2023-04-05] MEDS: POTASSIUM BICARBONATE/CIT 25 MEQ TABLET EFF 50 MEQ PO (17:57)
[2023-04-05 18:31] LABS: Troponin I High Sensitivity 7.1 pg/mL (4.0-51.3)
[2023-04-05] MEDS: PANTOPRAZOLE SODIUM 40 MG VIAL IV (18:55)
== END 2023-04-05 19:02 | disposition home or self-care (01) ==
PROVIDERS: Personal Emergency Response Attendant; Emergency Provider Emergency Medicine; PCP Family Medicine
DX: R00.2 Palpitations (principal); R11.2 Nausea with vomiting, unspecified; E87.6 Hypokalemia; Z79.899 Other long term (current) drug therapy; F32.A Depression, unspecified; Z86.718 Personal history of other venous thrombosis and embolism; K58.9 Irritable bowel syndrome, unspecified; Z87.442 Personal history of urinary calculi; Z90.710 Acquired absence of both cervix and uterus; Z90.89 Acquired absence of other organs
CPT/HCPCS: 36415; 71045; 80053; 81001; 82150; 83605; 83690; 83735; 84443; 84484; 84703; 85025; 85378; 93005; 96361; 96374; 96375; 96376; 99285

== ENCOUNTER 2023-04-22 15:12 | Outpatient (OUT) | payer BC, SELFPAY ==
--- NOTE | 2023-04-22 15:27 | CA_ITS ---
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: : 1985 Requested By: SHARITA SOTELO Order Number: [id number] Reading MD: GAVI GILL Interpretive Statements Predominant rhythm is sinus with average rate of 105 bpm Tachycardia - max rate of 188 bpm (sinus tachycardia) - longest episode of 2h 28min 47sec with rates between 127-163 bpm Bradycardia - min rate of 57 bpm Ventricular ectopy - 121 total (<1%) - 117 PVC NSVT - 1 episode of 4 beat duration Patient triggers: 29 - associated with no symptoms recorded - associated with rates of 157, 119, 132, 139, 119, 137, 105, 130, 113, 118, 116, 143, 112, 117, 120, 123, 137, 116, 151, 129, 132, 115, 126, 137, 139, 140, 149 and 148 bpm Impression Predominant rhythm is sinus with average rate of 105 bpm Fastest rate of 188 bpm (sinus tachycardia) and slowest rate of 57 bpm 117 PVC 1 episode of NSVT w/ duration of 4 beats No blocks or pauses No atrial fibrillation Electronically Signed On 05-12-2023 7:35:51 EST by GAVI GILL
--- OUTSIDE RECORDS SUMMARY | 2023-04-23 09:53 | XMS_ITS | CCD ---
Author Name Unknown Address [id number] [place] [address] Organization [facility] Care Team Providers Care Resident Services Supervisor Name Role Phone JOSEPH SOTELO Primary Care Unavailable Kristopher Guerrero Admitting Unavailable ASHLEIGH, JOSEPH Carey Primary Care Unavailable Kristopher Guerrero Attending Unavailable ASHLEIGH, JOSEPH Carey Primary Care Unavailable ASHLEIGH, JOSEPH Carey Primary Care Unavailable ASHLEIGH, DR JOSEPH Carey Primary Care Unavailable JAMISON ., DR BOWERS Admitting Unavailable JAMISON ., DR BOWERS Attending Unavailable JAMISON ., DR BOWERS Consulting Unavailable ZIEBER, DR BRIAN Carlos Consulting Unavailable SHAIKH Neema KRISHNA Consulting Unavailable SHAIKH Neema KRISHNA Admitting Unavailable ASHLEIGH, DR JOSEPH Carey Primary Care Unavailable SHAIKH Neema KRISHNA Attending Unavailable JAYDEN MORGAN Consulting Unavailable AYDIN CAMACHO Attending Unavailable ASHLEIGH, DR JOSEPH Carey Primary Care Unavailable DOUG, AYDIN Admitting Unavailable AYDIN CAMACHO Consulting Unavailable ASHLEIGH, DR JOSEPH Carey Primary Care Unavailable NICHOLE, DR ALLIE Carlos Consulting Unavailable NICHOLE, DR ALLIE Carlos Admitting Unavailable NICHOLE, DR ALLIE Carlos Attending Unavailable AMINA WU Consulting Unavailable ASHLEIGH, DR JOSEPH Carey Primary Care Unavailable NICHOLE, DR ALLIE Carlos Attending Unavailable NICHOLE, DR ALLIE Carlos Consulting Unavailable NICHOLE, DR ALLIE Carlos Admitting Unavailable FRANTZ COVARRUBIAS Consulting Unavailable ASHLEIGH, DR JOSEPH Carey Primary Care Unavailable ASHLEIGH, DR JOSEPH Carey Admitting Unavailable ASHLEIGH, DR JOSEPH Carey Attending Unavailable DILLON, DR ASHLEY Hightower Consulting Unavailable ASHLEIGH, DR JOSEPH Carey Consulting Unavailable Hilary Staton Unavailable Joseph Sotelo MD Primary Care Provider VU Parks Attending Unavailable ELISSA VALENZUELA Referring Unavailable JOSEPH SOTELO Primary Care UnavailJoseph Zavala MD Primary Care Provider JOSEPH SOTELO Attending Unavailable Medications Current Medications Medication Drug Class(es) Dates Sig (Normalized) Sig (Original) atenolol 25 mg oral tablet (3 sources) beta-Adrenergic Fredi Start: 04-29-2017 take 0.5 tablet by mouth once daily atenolol (Tenormin) 25 mg tablet Take 0.5 tablets (12.5 mg) by mouth once daily. 0 04/29/2017 Active Atenolol Active baclofen 10 mg oral tablet (2 sources) gamma-Aminobutyric Acid-ergic Agonist Start: 03-24-2023 End: 04-23-2023 take 1 tablet by mouth three times daily as needed for muscle spasms baclofen (Lioresal) 10 mg tablet Indications: Endometrioma Take 1 tablet (10 mg) by mouth 3 times a day as needed for muscle spasms. 90 tablet 0 03/24/2023 04/23/2023 Active cholecalciferol 0.05 mg oral tablet (2 sources) Vitamin D Start: 02-05-2023 cholecalciferol (Vitamin D-3) 50 MCG (2000 UT) tablet docusate sodium 100 mg oral capsule (2 sources) Start: 03-10-2023 take 1 capsule by mouth twice daily for constipation docusate sodium (Colace) 100 mg capsule take 1 capsule by mouth twice a day if needed for constipation up to 10 days 0 03/10/2023 Active DULoxetine 60 mg delayed release oral capsule (3 sources) Serotonin and Norepinephrine Reuptake Inhibitor Start: 01-28-2021 take 2 capsules by mouth once daily DULoxetine (Cymbalta) [address] capsule Take 2 capsules (120 mg) by mouth once daily. 0 01/28/2021 Active Cymbalta Active hydroCHLOROthiazide 12.5 mg / lisinopril 20 mg oral tablet (1 source) Thiazide Diuretic, Angiotensin Converting Enzyme Inhibitor take 1 tablet by mouth once daily lisinopriL-hydrochlorothiazide 20-12.5 mg tablet Take 1 tablet by mouth once daily. 0 Active methylcellulose 2000 mg powder for oral suspension (2 sources) methylcellulose oral powder Take by mouth once daily. 0 Active omeprazole 40 mg delayed release oral capsule (3 sources) Proton Pump Inhibitor Star t: 01-02 220 15 take 1 capsule by mouth once daily omeprazole (PriLOSEC) [address] capsule Take 1 capsule (40 mg) by mouth once daily. 0 01/13/2015 Active Omeprazole Activ e OXcarbazepine 300 mg oral tablet (2 sources) Anti-epileptic Agent Start: 03-15-2023 take 1 tablet by mouth twice daily OXcarbazepine (Trileptal) 300 mg tablet Take 1 tablet (300 mg) by mouth 2 times a day. 0 03/15/2023 Active Ozempic (1 source) Ozempic Active Ozempic 0.25 mg or 0.5 mg (2 mg/3 mL) pen injector (2 sources) Start: 03-09-2023 Ozempic 0.25 mg or 0.5 mg (2 mg/3 mL) pen injector polyethylene glycol 3350 04025 mg powder for oral solution (2 sources) Osmotic Laxative polyethylene glycol (Glycolax, Miralax) 17 gram packet Take 17 g by mouth once daily. 0 Active topiramate 50 mg oral tablet (3 sources) Start: 11-01-2018 take 1 tablet by mouth once daily topiramate (Topamax) 50 mg tablet Take 1 tablet (50 mg) by mouth once daily. 0 11/01/2018 Active Topiramate Activ e Completed/Discontinued Medications Medication Drug Class(es) Dates Sig (Normalized) Sig (Original) amoxicillin 875 mg oral tablet (1 source) Penicillin-class Antibacterial Start: 04-26-2019 take 1 tablet by mouth every twelve hours Amoxicillin 875 MG 1 tablet Orally every 12 hrs for 7 days Apr, Not-Taking cefTRIAXone (1 source) Cephalosporin Antibacterial Start: 03-14-2017 Rocephin 500 mg Mar, 500 mg fluticasone propionate 0.05 mg/actuat metered dose nasal spray (1 source) Corticosteroid Start: 04-26-2019 take 1 spray(s) nasal route once daily Fluticasone Propionate 50 MCG/ACT 1 spray in each nostril Nasally Once a day for 30 day(s) Apr, Not-Taking lamoTRIgine (1 source) Mood Stabilizer, Anti-epileptic Agent LaMICtal Not-Taking Problems Active Problems Problem Classification Problem Date Documented Da te Episodic/Chronic Abdominal pain (1 source) Left sided abdominal pain; Translations: [Left sided abdominal pain] Episodic Anxiety disorders (2 sources) Generalized anxiety disorder; Translations: [Generalized anxiety disorder] Onset: 8 03-24-2023 Chronic Asthma (2 sources) Asthma; Translations: [Unspecified asthma, uncomplicated] Onset: 3 03-24-2023 Chronic Attention-deficit, conduct, and disruptive behavior disorders (2 sources) Attention deficit hyperactivity disorder, predominantly inattentive type; Translations: [Attention-deficit hyperactivity disorder, predominantly inattentive type] Onset: 0 03-24-2023 Chronic Calculus of urinary tract (4 sources) Unspecified renal colic; Translations: [UNSPECIFIED RENAL COLIC] Onset: 3 Episodic Endometriosis (4 sources) Endometriosis (clinical); Translations: [Endometrioma] Onset: 3 03-25-2023 Chronic Endometriosis (2 sources) Endometriosis; Translations: [Deep endometriosis of ovary, unspecified ovary] Onset: 3 Esophageal disorders (3 sources) Gastroesophageal reflux disease; Translations: [GERD (gastroesophageal reflux disease)] Onset: 5 03-24-2023 Chronic Essential hypertension (3 sources) Essential (primary) hypertension; Translations: [Benign essential hypertension] Onset: 5 03-24-2023 Chronic Gastrointestinal hemorrhage (1 source) Rectal hemorrhage; Translations: [Rectal bleed] Episodic Mood disorders (2 sources) Recurrent major depressive episodes, moderate ; Translations: [Major depressive disorder, recurrent, moderate] Onset: 8 03-24-2023 Chronic Other eye disorders (1 source) Other specified disorders of eye and adnexa Episodic Other female genital disorders (2 sources) Abnormal uterine bleeding; Translations: [Other specified abnormal uterine and vaginal bleeding] Onset: 3 03-24-2023 Chronic Other gastrointestinal disorders (1 source) Irritable bowel syndrome; Translations: [IBS (irritable bowel syndrome)] Chronic Other gastrointestinal disorders (1 source) Constipation; Translations: [Constipation] Episodic Other gastrointestinal disorders (1 source) Diarrhea; Translations: [Diarrhea] Episodic Past or Other Problems Problem Classification Problem Date Documented Da te Episodic/Chronic Genitourinary symptoms and ill-defined conditions (2 sources) Blood in urine; Translations: [Hematuria, unspecified] Onset: 11-29-2014 03-24-2023 Episodic Other complications of (2 sources) Hereditary disease in family possibly affecting fetus; Translations: [Maternal care for (suspected) hereditary disease in fetus, not applicable or unspecified] Onset: 03-24-2011 03-24-2023 Episodic Other connective tissue disease (5 sources) Pain in right leg; Translations: [PAIN IN RIGHT LEG] Onset: 12-30-2021 Episodic Other connective tissue disease (3 sources) Pain in left leg; Translations: [PAIN IN LEFT LEG] Onset: 09-27-2021 Episodic Other female genital disorders (4 sources) Other specified noninflammatory disorders of vagina; Translations: [OTH SPEC NONINFLAMMATORY D/O VAGINA] Onset: 08-20-2021 Episodic Other lower respiratory disease (1 source) Pleurodynia; Translations: [PLEURODYNIA] Onset: 12-31-2021 Episodic Phlebitis; thrombophlebitis and thromboembolism (2 sources) History of thromboembolism of vein; Translations: [Personal history of other venous thrombosis and embolism] Onset: 03-24-2011 03-24-2023 Episodic Pulmonary heart disease (1 source) Personal history of pulmonary embolism; Translations: [PERSONAL HISTORY PULMONARY EMBOLISM] Onset: 12-31-2021 Episodic Residual codes; unclassified (1 source) Acquired absence of both cervix and uterus; Translations: [ACQUIRED ABSENCE BOTH CERVIX AND UTERUS] Onset: 08-22-2021 Episodic Residual codes; unclassified (1 source) Acquired absence of ovaries, unilateral; Translations: [ACQUIRED ABSENCE OVARIES UNILATERAL] Onset: 08-22-2021 Episodic Spondylosis; intervertebral disc disorders; other back problems (1 source) Sacrococcygeal disorders, not elsewhere classified; Translations: [SACROCOCCYGEAL DISORDERS NEC] Onset: 10-07-2021 Episodic Unclassified (2 sources) Onset: 03-24-2023 03-24-2023 Results Test Name Value Interpretation Reference Range Facil ity CT ABD/PELVIS WO CONon 08-05 CT ABD/PELVIS WO CON EXAMINATION: CT ABD/PELVIS WO CON, 08/05/2022 3:43 PM EDT HISTORY: Renal colic COMPARISON: 03/07/2019 TECHNIQUE: CT scan of the abdomen and pelvis was performed without IV contrast. CT dose reduction technique was used, including Automated Exposure Control. ABDOMEN/PELVIS FINDINGS: Lower Chest: Unremarkable. Liver: Normal enhancement and contour. Biliary/Gallbladder: Unremarkable. Pancreas: Unremarkable. Spleen: Unremarkable. Adrenal Glands: Unremarkable. Kidneys: There are a few small nonobstructive calculi present in the kidneys bilaterally. No ureteral calculus identified. Gastrointestinal/Zayda toneum: No acute abnormality. The appendix is unremarkable. No free air or free fluid. Vascular: Unremarkable. Lymph Nodes: No enlarged lymph nodes by CT size criteria. Pelvic Organs: The left ovary is mildly prominent with a cyst present measuring 3.7 cm, likely physiologic. There are postoperative changes to the uterus, possibly a cervical sparing hysterectomy. Bladder: Unremarkable. Bones: No acute osseous abnormality. Soft tissues: Heterogeneous thickening is present at the lower left rectus abdominis musculature measuring approximately 3.5 x 3.2 cm, which was seen on a remote prior exam, likely due to postoperative changes. IMPRESSION: 1. Nephrolithiasis without evidence of obstructive uropathy. 2. Other chronic findings in the body the report. Electronically authenticated by: JAYDEN MORGAN Date: 2022-08-05 16:55 Normal [facility] QUANTIFERON TB GOLD PLUSon 0 06-18-2022 QuantiFERON Criteria Comment Normal [facility] Comment on above: Result Comment: Gagandeep tiFERON-TB Gold Plus is a qualitative indirect test for M tuberculosis infection (including disease) and is intended for use in conjunction with risk assessment, radiography, and other medical and diagnostic evaluations. The QuantiFERON-TB Gold Plus result is determined by subtracting the Nil value from either TB antigen (Ag) value. The Mitogen tube serves as a control for the test. Performed By: #### Q NTTB #### [facility] [address] [address] [address] Yovanny Alcantara QuantiFERON Incubation Incubation performed. Normal [facility] Comment on above: Performed By: #### Q NTTB #### [facility] [address] [address] [address] Yovanny Alcantara QuantiFERON Mitogen Value >10.00 Normal [facility] Comment on above: Performed By: #### Q NTTB #### [facility] [address] [address] [address] Yovanny Alcantara QuantiFERON Nil Value 0.03 IU/mL Normal [facility] Comment on above: Performed By: #### Q NTTB #### [facility] [address] [address] [address] Yovanny Alcantara QuantiFERON TB1 Ag Value 0.05 IU/mL Normal [facility] Comment on above: Performed By: #### Q NTTB #### [facility] [address] [address] [address] Yovanny Alcanatra QuantiFERON TB2 Ag Value 0.06 IU/mL Normal [facility] Comment on above: Performed By: #### Q NTTB #### [facility] [address] [address] [address] Yovanny Alcantara QuantiFERON-TB Gold Plus Negative Normal Negative [facility] Comment on above: Result Comment: No r esponse to M tuberculosis antigens detected. Infection with M tuberculosis is unlikely, but high risk individuals should be considered for additional testing (ATS/IDSA/CDC Clinical Practice Guidelines, 2017). The reference range is an Antigen minus Nil result of <0.35 IU/mL. Chemiluminescence immunoassay methodology Performed By: #### Q NTTB #### [facility] [address] [place] [address] Dr. Yovanny Alcantara HEPATITIS B SURFACE ANTIBODY , QUANTon 06-17-2022 Hepatitis B Surf AB Quant 3.5 mIU/mL Critically low Immunity>9.9 [facility] Comment on above: Result Comment: Stat us of Immunity Anti-HBs Level Inconsistent with Immunity 0.0 - 9.9 Consistent with Immunity >9.9 Performed By: #### H EPBSRF ####[facility] [id number] [address]Dr. Yovanny Alcantara MMR IMMUNITYon 06-17-2022 Mumps Abs, IgG 17.4 AU/mL Normal Immune >10.9 [facility] Comment on above: Result Comment: Nega tive <9.0 Equivocal 9.0 - 10.9 Positive >10.9 A positive result generally indicates past exposure to Mumps virus or previous vaccination. Performed By: #### M MRIMMU #### [facility] [address] [address] [address] Yovanny Alcantara Rubella Antibodies, IgG 1.68 index Normal Immune >0.99 [facility] Comment on above: Result Comment: Non- immune <0.90 Equivocal 0.90 - 0.99 Immune >0.99 Performed By: #### M MRIMMU #### [facility] [address] [address] [address] Yovanny Alcantara Rubeola Ab, IgG 108.0 AU/mL Normal Immune >16.4 [facility] Comment on above: Result Comment: Nega tive <13.5 Equivocal 13.5 - 16.4 Positive >16.4 Presence of antibodies to Rubeola is presumptive evidence of immunity except when acute infection is suspected. Performed By: #### M MRIMMU #### [facility] [address] [place] [address] Dr. Yovanny Alcantara VARICELLA IGG ABon 3 Varicella Zoster IgG 947 index Normal Immune >165 [facility] Comment on above: Result Comment: Nega tive <135 Equivocal 135 - 165 Positive >165 A positive result generally indicates exposure to the pathogen or administration of specific immunoglobulins, but it is not indication of active infection or stage of disease. Performed By: #### V ARCEL ####[facility] [id number] [address]Dr. Yovanny Alcantara Consent Formson 05-01-2022 Consent Forms [id number] [facility] US CESIA DOP LEG RTon 12-31-19 22 US CESIA DOP LEG RT Ultrasound venous duplex scan right lower extremity CLINICAL: Right thigh pain for 5 days TECHNIQUE: Edwards-scale, color Doppler and Duplex examination of the right lower extremity was performed with and without provocative maneuvers. FINDINGS: Comparison: None. Sonographic examination of the right lower extremity deep venous system to include the common femoral, superficial femoral and popliteal veins, demonstrates normal compressibility, color-flow, respiratory variation, and augmentation. The origin of the greater saphenous vein demonstrates normal compression, and there is normal color-flow in the proximal profunda femoral vein. There is normal compression of the posterior tibial, peroneal and anterior tibial veins. There is normal compression of the greater saphenous vein and small saphenous vein in the calf. IMPRESSION: 1. No deep venous thrombosis in the right lower extremity. Electronically authenticated by: FRANTZ COVARRUBIAS Date: 2021-12-30 10:39 Normal [facility] CBC AUTO DIFFon 12-29-2021 BASO # 0.1 103/ul Normal 0.0-0.1 [facility] Comment on above: Performed By: #### C BC #### [facility] [address] [place] [address] Dr. Yovanny Alcantara Basophils/100 WBC (Bld) 0.7 % Normal 0.2-2.0 [facility] Comment on above: Performed By: #### C BC #### [facility] [address] [place] [address] Dr. Yovanny Alcantara EO # 0.2 103/ul Normal 0.0-0.7 [facility] Comment on above: Performed By: #### C BC #### [facility] [address] [address] [address] Yovanny Alcantara Eosinophils/100 WBC (Bld) 1.3 % Normal 0.9-7.0 [facility] Comment on above: Performed By: #### C BC #### [facility] [address] [address] [address] Yovanny Alcantara Erythrocyte distribution width (RBC) [Ratio] 13.9 % Normal 11.0-15.0 [facility] Comment on above: Performed By: #### C BC #### [facility] [address] [place] [address] Dr. Yovanny Alcantara Hematocrit (Bld) [Volume fraction] 43.7 % Normal 36.0-48.0 [facility] Comment on above: Performed By: #### C BC #### [facility] [address] [place] [address] Dr. Yovanny Alcantara Hemoglobin (Bld) [Mass/Vol] 13.8 g/dL Normal 12.0-16.0 [facility] Comment on above: Performed By: #### C BC #### [facility] [address] [place] [address] Dr. Yovanny Alcantara IG # 0.11 10e3/ul Critically high 0.00-0.03 [facility] Comment on above: Performed By: #### C BC #### [facility] [address] [place] [address] Dr. Yovanny Alcantara IG % 0.8 % Critically high 0.0-0.5 [facility] Comment on above: Performed By: #### C BC #### [facility] [address] [place] [address] Dr. Yovanny Alcantara LYMPH # 3.7 103/ul Normal 1.2-3.8 [facility] Comment on above: Performed By: #### C BC #### [facility] [address] [place] [address] Dr. Yovanny Alcantara Lymphocytes/100 WBC (Bld) 27.0 % Normal 20.5-60.0 [facility] Comment on above: Performed By: #### C BC #### [facility] [address] [place] [address] Dr. Yovanny Alcantara MANUAL DIFF REQ NO Normal [facility] Comment on above: Performed By: #### C BC #### [facility] [address] [place] [address] Dr. Yovanny Alcantara MCH (RBC) [Entitic mass] 26.7 pg Normal 26.7-34.0 [facility] Comment on above: Performed By: #### C BC #### [facility] [address] [place] [address] Dr. Yovanny Alcantara MCHC (RBC) [Mass/Vol] 31.6 g/dL Normal 29.9-35.2 [facility] Comment on above: Performed By: #### C BC #### [facility] [address] [place] [address] Dr. Yovanny Alcantara MCV (RBC) [Entitic vol] 84.5 fL Normal 81.0-99.0 [facility] Comment on above: Performed By: #### C BC #### [facility] [address] [address] [address] Yovanny Alcantara MONO # 0.9 103/ul Critically high 0.3-0.8 [facility] Comment on above: Performed By: #### C BC #### [facility] [address] [address] [address] Yovanny Alcantara Monocytes/100 WBC (Bld) 6.5 % Normal 1.7-12.0 [facility] Comment on above: Performed By: #### C BC #### [facility] [address] [address] [address] Yovanny Alcantara NEUT # 8.8 103/ul Critically high 1.4-6.5 [facility] Comment on above: Performed By: #### C BC #### [facility] [address] [address] [address] Yovanny Alcantara Neutrophils/100 WBC (Bld) 63.7 % Normal 43.0-75.0 [facility] Comment on above: Performed By: #### C BC #### [facility] [address] [address] [address] Yovanny Alcantara Platelet mean volume (Bld) [Entitic vol] 8.3 fL Critically low 9.5-13.5 [facility] Comment on above: Performed By: #### C BC #### [facility] [address] [address] [address] Yovanny Alcantara PLT 364 103/ul Normal 150-450 [facility] Comment on above: Performed By: #### C BC #### [facility] [address] [address] [address] Yovanny Alcantara RBC 5.17 106/ul Normal 4.20-5.40 [facility] Comment on above: Performed By: #### C BC #### [facility] [address] [address] [address] Yovanny Alcantara WBC 13.8 103/ul Critically high 4.0-11.0 [facility] Comment on above: Performed By: #### C BC #### [facility] [address] [place], [place] [address] Dr. Yovanny Alcantara CTA CHEST WO W CONon 022 CTA CHEST WO W CON EXAM: CTA CHEST WO W CON 12/28/2021 10:47 PM EDT OH001 CLINICAL STATEMENT: SHORTNESS OF BREATH COMPARISON: No prior studies are available at the time of dictation. TECHNIQUE: Helically acquired images were obtained of the chest following 100 cc of Omnipaque 350 IV contrast as per pulmonary angiogram protocol with Coronal and sagittal MIP (maximum intensity projection) images were performed. Dose reduction techniques were achieved by using automated exposure control and/or adjustment of mA and/or kV according to patient size and/or use of iterative reconstruction technique. FINDINGS: There is no evidence of pulmonary embolism, aortic aneurysm, or aortic dissection. The aortic arch branch vessels are grossly patent. The heart is not enlarged. There is no pericardial effusion or thickening. There is no enlarged mediastinal or hilar adenopathy. No acute airspace disease. There are no pleural effusions. There are no enlarged (>3 mm) pulmonary nodules. There is no pneumothorax. There are no endobronchial lesions seen. The thyroid is homogeneous. No acute fracture. There are no destructive bone lesions identified. Screening images of the upper abdomen are grossly unremarkable. IMPRESSION: No evidence for pulmonary embolism, aortic aneurysm, or aortic dissection. FOLLOW-UP: Follow-up as clinically indicated. Electronically authenticated by: AMINA WU Date: 2021-12-29 01:20 Normal [facility] D-DIMERon 12-29-2021 D-DIMER 0.68 mg/L FEU Critically high <=0.59 [facility] Comment on above: Performed By: #### P TT, PT, DDIM ####[facility] [id number] [place], [place] [address]VbDr. Yovanny Alcantara D-DIMER COMMENTS SEE BELOW Normal [facility] Comment on above: Result Comment: Incr eases in D-Dimer concentration observed with thromboembolic events can be variable due to localization, size, and age of the thrombus. Therefore, a thromboembolic event cannot be diagnosed with certainty on the basis of the reference range. D-Dimers may also be elevated for a variety of disorders including: advanced age, , coronary disease, cancer, liver disease, infection, inflammation, hematoma, DIC, trauma, post-surgery, diabetes, thrombolytic or anticoagulant therapy, stress, and generalized hospitalization. Performed By: #### P TT, PT, DDIM ####[facility] [id number] [place] [address]Dr. Yovanny VASQUEZ URINE PROFILEon 2 Bilirubin Ql (U) Negative Normal NEGATIVE [facility] Comment on above: Performed By: #### E RUR #### [facility] [address] [place] [address] Dr. Yovanny Alcantara Clarity (U) CLEAR Normal CLEAR [facility] Comment on above: Performed By: #### E RUR #### [facility] [address] [place] [address] Dr. Yovanny Alcantara Color (U) YELLOW Normal YELLOW [facility] Comment on above: Performed By: #### E RUR #### [facility] [address] [place] [address] Dr. Yovanny LONG A micrscopic examination will be performed if indicated. Normal [facility] Comment on above: Performed By: #### E RUR #### [facility] [address] [place] [address] Dr. Yovanny Alcantara Glucose Ql (U) Negative Normal NEGATIVE [facility] Comment on above: Performed By: #### E RUR #### [facility] [address] [place] [address] Dr. Yovanny Alcantara Hemoglobin Ql (U) Negative Normal NEGATIVE [facility] Comment on above: Performed By: #### E RUR #### [facility] [address] [place] [address] Dr. Yovanny Alcantara Ketones Ql (U) Negative Normal NEGATIVE [facility] Comment on above: Performed By: #### E RUR #### [facility] [address] [place] [address] Dr. Yovanny Alcantara LEUKOCYTES Negative Normal NEGATIVE [facility] Comment on above: Performed By: #### E RUR #### [facility] [address] [place] [address] Dr. Yovanny Alcantara Nitrite Ql (U) Negative Normal NEGATIVE [facility] Comment on above: Performed By: #### E RUR #### [facility] [address] [address] [address] Yovanny Alcantara pH (U) 6.5 [pH] Normal 5-9 [facility] Comment on above: Performed By: #### E RUR #### [facility] [address] [address] [address] Yovanny Alcnatara SPEC GRAVITY 1.020 Normal 1.005-<=1.025 [facility] Comment on above: Performed By: #### E RUR #### [facility] [address] [address] [address] Yovanny Alcantara UA PROTEIN Negative Normal NEGATIVE/ TRACE [facility] Comment on above: Performed By: #### E RUR #### [facility] [address] [place] [address] Dr. Yovanny Alcantara UR MICRO IND NOT INDICATED Normal [facility] Comment on above: Performed By: #### E RUR #### [facility] [address] [address] [address] Yovanny Alcantara Urobilinogen Qn (U) 0.2 {Eunice'U}/dL Normal 0.2 - 1. 0 [facility] Comment on above: Performed By: #### E RUR #### [facility] [address] [place] [address] Dr. Yovanny Alcantara PROTIMEon 12-29-2021 INR Coag (PPP) [Relative time] 0.94 {INR} Normal [facility] Comment on above: Performed By: #### P TT, PT, DDIM ####[facility] [id number] [address]Dr. Yovanny Alcantara INR GUIDELINES SEE BELOW Normal [facility] Comment on above: Result Comment: JENNIFER RED INR: 2.0 - 3.0 CONDITIONS NOT LISTED BELOW 2.5 - 3.5 FOR PROSTHETIC HEART VALVE REPLACEMENT 2.5 - 3.5 RECURRENT THROMBOSIS Performed By: #### P TT, PT, DDIM ####[facility] [id number] [place], [place] [address]Pq. Yovanny Alcantara PT Coag (PPP) [Time] 10.2 s Normal 9.0-11.6 [facility] Comment on above: Performed By: #### P TT, PT, DDIM ####[facility] [address] [place], [place] [address]KqJessica Alcantara PTTon 12-29-2021 aPTT Coag (Bld) [Time] 28.2 s Normal 22.3-36.2 [facility] Comment on above: Performed By: #### P TT, PT, DDIM ####[facility] [address] [place], [place] [address]Py. Yovanny Alcantara .QC Respiratory Panel 2.1 (B ioFire)on 11-19-2021 Internal Control-Resp Panel 2.1(BioFire) Pass [facility] Comment on above: Order Comment: Order ed by Discern. [[id number]] Performed By: #### [id number] #### [facility] (DEFAULT) [address] [place] [address] Consent Formson 11-08-2021 Consent Forms [id number] .00OTGTIFF [facility] .QC Respiratory Panel 2.1 (B ioFire)on 11-02-2021 Internal Control-Resp Panel 2.1(BioFire) Pass [facility] Comment on above: Order Comment: Order ed by Discern. [[id number]] Performed By: #### [id number] #### [facility] (DEFAULT) [address] [place] [address] XR LSPINE 2_3 VIEWSon 2021 XR LSPINE 2_3 VIEWS EXAMINATION: XR LSPINE 2_3 VIEWS HISTORY: Disorder of sacrum COMPARISON: No relevant comparison available. FINDINGS: BONES: Normal alignment with no acute fracture or spondylolisthesis. Mild degenerative spondylosis. DISC SPACES: Moderate disc space narrowing L5-S1 PARASPINOUS: Negative. No paraspinous abnormality is seen. OTHER: Calcification lower pole left kidney, unchanged IMPRESSION: No sclerotic metastases identified Electronically authenticated by: ASHLEY CARRANZA Date: 2021-09-28 07:54 Normal [facility] US PELVIS AND TRANSVAGon US PELVIS AND TRANSVAG EXAMINATION: US PELVIS AND TRANSVAG HISTORY: Noninflammatory disorder of the vagina , bloody discharge for one year COMPARISON: Ultrasound pelvis 06/04/2014 TECHNIQUE: Transabdominal and transvaginal sonographic examination. FINDINGS: UTERUS: Hysterectomy. Small anechoic fluid collection suggestive of a nabothian cysts within the cervix versus vaginal cuff. RIGHT OVARY: Absent. LEFT OVARY: Contains a benign-appearing 2.5 cm cyst. Duplex Doppler demonstrates normal waveform and flow; resistive index 0.68. Ovary size: 4.3 x 2.2 x 2.9 cm CUL-DE-SAC: Unremarkable. No significant free fluid. BLADDER: Unremarkable. OTHER: None. IMPRESSION: 1. Prior hysterectomy and right oophorectomy. 2. No specific findings to account for patient's symptoms. 3. Small benign-appearing cystic fluid collection at vaginal cuff versus nabothian cysts within cervix. Electronically authenticated by: BRIAN SINGER Date: 2021-08-20 09:02 Normal [facility] Consent Formson 05-16-2021 Consent Forms [id number] .00OTGTIFF [facility] .QC Respiratory Panel 2.1 (B ioFire)on 05-13-2021 Internal Control-Resp Panel 2.1(BioFire) Pass [facility] Comment on above: Order Comment: Order ed by Mirian. [[id number]] Performed By: #### [id number] #### [facility] (DEFAULT) [address] [place] [address] Vital Signs Date Time Vital Sign Value Performing Clinician Facility 03-24-2023 10:40-0500 Body height 154.1 cm Vu Juarez MD MPH Work Phone: [facility] 03-24-2023 10:40-0500 Body mass index (BMI) [Ratio] 31.92 kg/m2 Vu Juarez MD MPH Work Phone: [facility] 03-24-2023 10:40-0500 Body temperature 97.3 [degF] Vu Juarez MD MPH Work Phone: [facility] 03-24-2023 10:40-0500 Body weight 75.8 kg Vu Juarez MD MPH Work Phone: [facility] 03-24-2023 10:40-0500 Diastolic blood pressure 107 mm[Hg] Vu Juarez MD MPH Work Phone: [facility] 03-24-2023 10:40-0500 Heart rate 85 /min Vu Juarez MD MPH Work Phone: [facility] 03-24-2023 10:40-0500 Respiratory rate 16 /min Vu Juarez MD MPH Work Phone: [facility] 03-24-2023 10:40-0500 SaO2% (BldA) [Mass fraction] 98 % Vu Juarez MD MPH Work Phone: [facility] 03-24-2023 10:40-0500 Systolic blood pressure 148 mm[Hg] Vu Juarez MD MPH Work Phone: [facility] 09-05-2022 10:45-0400 Body height 155.57 cm Hilary Staton Other [facility] Other 09-05-2022 10:45-0400 Body mass index (BMI) [Ratio] 33.73 kg/m2 Hilary Staton Other [facility] Other 09-05-2022 10:45-0400 Body temperature 97.3 [degF] Hilary Staton Other [facility] Other 09-05-2022 10:45-0400 Body weight 81.65 kg Hilary Staton Other [facility] Other 09-05-2022 10:45-0400 Diastolic blood pressure 98 mm[Hg] Hilary Staton Other [facility] Other 09-05-2022 10:45-0400 Respiratory rate 18 /min Hilary Staton Other [facility] Other 09-05-2022 10:45-0400 SaO2% (BldA) [Mass fraction] 99 % Hilary Staton Other [facility] Other 09-05-2022 10:45-0400 Systolic blood pressure 139 mm[Hg] Hilary Staton Other [facility] Other Encounters Encounter Date Encounter Type Care Provider Facility Start: 04-08-2023 End: 04-08-2023 Office outpatient new 45 minutes Jeremy Jang MD Work Phone: [facility] Comment on above: Endometrioma Start: 04-08-2023 End: 04-08-2023 ambulatory JOSEPH SOTELO Not Available Start: 03-24-2023 End: 03-24-2023 ambulatory VU JUAREZ [facility] Start: 03-24-2023 End: 03-24-2023 Office outpatient new 60 minutes Vu Juarez MD MPH Work Phone: [facility] Comment on above: Endometrioma (Primar y Dx) Start: 09-05-2022 End: 09-05-2022 ambulatory Hilary Staton Other [facility] Other Start: 09-05-2022 Office outpatient ne w 20 minutes Hilary Staton [facility] Start: 08-05-2022 End: 08-06-2022 ambulatory SHAIKH Neema KRISHNA Facility: Start: 06-16-2022 End: 06-16-2022 ambulatory AYDIN CAMACHO Facility:[facility] Start: 04-23-2022 End: 04-24-2022 ambulatory Kristopher Guerrero Facility:[facility] Start: 12-30-2021 End: 12-31-[address] JOSEPH SOTELO Facility:[facility] Start: 12-28-2021 End: 12-29-[address] JOSEPH SOTELO Facility:[facility] Start: 11-19-2021 End: 11-20-2021 ambulatory JOSEPH SOTELO Facility:[facility] Start: 11-02-2021 End: 11-02-2021 ambulatory JOSEPH SOTELO Facility:[facility] Start: 09-27-2021 End: 09-28-[address] JOSEPH SOTELO Facility:[facility] Start: 08-20-2021 End: 08-21-[address] JOSEPH SOTELO Facility:[facility] Start: 05-14-2021 End: 05-14-2021 ambulatory JOSEPH SOTELO Facility:[facility] Plan of Treatment Date Care Activity Detail Author Start: 2036 Zoster Vaccines (1 of 2) Zoste r Vaccines (1 of 2) [facility] Start: 07-28-2027 DTaP/Tdap/Td Vaccine s (6 - Td or Tdap) DTaP/Tdap/Td Vaccines (6 - Td or Tdap) [facility] Start: 01-02-2023 Influenza vaccination Influenza Vacc ine (#1) [facility] Start: 04-26-2021 COVID-19 Vaccine (4 - Moderna series) COVID-19 Vaccine (4 - Moderna series) [facility] Start: 12-24-2017 Varicella vaccination Varicell a Vaccines (2 of 2 - 13+ 2-dose series) [facility] Start: 2007 Screening for malign ant neoplasm of cervix [facility] Start: 2004 Diabetes mellitus screening Diabetes Screening [facility] Start: 2004 Hepatitis C screening Hepatitis C [facility] Start: 1986 HIV screening HIV Screening [facility] Start: 1986 Lipid panel Lipid Panel [facility] Start: 1986 Yearly Adult Physical Yearly Adult P hysical [facility] Immunizations Immunization Date Immunization Notes Care Provider [facility] 02-18-2021 influenza virus vaccine, unspecified formulation Vu Juarez MD MPH Work Phone: [facility] Work Phone: 11-26-2017 varicella virus vaccine Vu Juarez MD MPH Work Phone: [facility] Work Phone: 01-11-2014 influenza, seasonal, injectable, preservative free Hilary Staton Other [facility] Other Payers Date Payer Category Payer Unknown [id number] 1986 Unknown [id number] 2.16.84 [id number] 1986 Unknown [id number] 2.16.84 [id number] 1986 Unknown [id number] 2.16.84 [id number] 1986 Unknown [id number] 2.16.84 [id number] 1986 Unknown [id number] 2.16.84 [id number] 1986 Unknown [id number] 2.16.8 [id number] 1986 Unknown [id number] 1958 Self-pay 1958 Unknown [id number] [facility] GTFAN [id number] Unknown [id number] [id number] [id number] Social History Date Type Detail Facility Unknown if ever smoked [facility] Other Start: 04-08-2023 Sex Assigned At [facility] Other Tobacco smoking status NHIS Tobacco smoking consumption unknown [facility] Work Phone: Start: 1985 [facility] Start: 03-14-2023 End: 04-08-2023 Exposure to SARS-CoV-2 (event) Not sure [facility] Start: 04-08-2023 Tobacco smoking status NHIS Never smoked tobacco [facility] Start: 04-08-2023 Tobacco use and exposure Smokeless tobacco non-user [facility] Work Phone: Start: 04-08-2023 Alcohol intake Ex-drinker (finding) [facility] Work Phone: Start: 04-08-2023 History of Social function [facility] Work Phone: History of Present illness Narrative 04-08-2023 Jeremy Jang MD - 04/08/2023 10:30 AM EST Note Date & Type Note Facility 04-08-2023 History of Present illness Narrative History Of Present Illness Patient is a 37 y.o. female who presents to discuss the surgical management of a known large abdominal wall endometrioma. Her surgical history is significant for a previous section and subsequent hysterectomy for abnormal uterine bleeding. She also endorses a history of cyclical chronic abdominal pain for which a CT scan was recently obtained and showed a large 10 cm mass which resulted as an endometrioma. She has been seen by surgical oncology for consideration of excision and presents today to discuss the surgical management after excision of the mass to include abdominal wall reconstruction. She has significant anxiety about the surgery due significant surgical complications in her family. Past Medical History Past Medical History: Diagnosis Date Endometrioma 03/24/2023 Surgical History No past surgical history on file. Social History She reports that she has never smoked. She has never used smokeless tobacco. She reports that she does not currently use alcohol. She reports that she does not use drugs. Family History No family history on file. Allergies Patient has no known allergies. Review of Systems - CONSTITUTIONAL: Denies fever and chills. - HEENT: Denies changes in vision and hearing. - RESPIRATORY: Denies SOB and cough. - CV: Denies palpitations and CP. - GI: Denies abdominal pain, nausea, vomiting and diarrhea. - : Denies dysuria and urinary frequency. - MSK: Denies myalgia and joint pain. - SKIN: Denies rash and pruritus. - NEUROLOGICAL: Denies headache and syncope. - PSYCHIATRIC: Denies recent changes in mood. Denies anxiety and depression. Physical Exam - GENERAL: Alert and oriented x 3. No acute distress. Well-nourished. - EYES: EOMI. Anicteric. - HENT: Moist mucous membranes. No scleral icterus. No cervical lymphadenopathy. - LUNGS: Breathing comfortably on room air. No accessory muscle use, no distress. - CARDIOVASCULAR: Regular rate and rhythm. No murmur. No JVD. - ABDOMEN: Soft and non-distended. Palpable, tender mass in the left hemiabdomen. No overlying skin changes. - EXTREMITIES: No edema. Non-tender. - SKIN: No rashes or lesions. Warm. - NEUROLOGIC: No focal neurological deficits. CN II-XII grossly intact, but not individually tested. - PSYCHIATRIC: Cooperative. Appropriate mood and affect. Last Recorded Vitals not currently . Relevant Results CT scan reviewed Assessment and Plan Patient is a 37 y.o. female who presents to discuss the surgical management of a large abdominal wall endometrioma. Surgical oncology planning for surgical resection. Presents today to discuss abdominal wall reconstruction. I discussed that after excision, we will treat the abdominal wall as a large incisional hernia and perform abdominal wall reconstruction including a retrorectus dissection and likely at least a left-sided transversus abdominis release. I also explained that my preference would be to use a synthetic bioreabsorbable mesh to avoid the potential complications with a permanent synthetic mesh. The risks, benefits, alternatives to incisional hernia repair were explained to the patient and she did voice understanding. I explained the risks of bleeding, infection, hernia recurrence, anesthesia complications. She was most concerned about potential hernia recurrence which I did explain we will try to minimize this risk by performing abdominal reconstruction at that time of mass excision. I explained that surgical intervention for the abdominal wall defect will involve fascial separation from the muscles and a sublay placement of the mesh. I did also explained that 1, possibly 2 drains will be placed at the time of surgery. She also inquired about length of stay, potential anesthesia complications, other surgical complications which were all answered to the best of my ability. I explained that my office will coordinate with Dr. Juarez's office to arrange for an operative date when she is medically optimized. Of note, she also has a history of a PE while being for which she underwent a hypercoagulable workup which was negative but is to see a brim curler to further work this up as well. Jeremy Jang MD documented in this encounter [facility] Work Phone: History of Present illness Narrative 03-24-2023 Vu Juarez MD MPH - 03/24/2023 10:20 AM EST Note Date & Type Note Facility 03-24-2023 History of Present illness Narrative History and Physical Referring Provider: Elissa Valenzuela DO Marc Anthony Naderer, MD Chief Complaint: Abdominal Wall Endometrioma History of Present Illness: This is a 37 y.o. female who presents with known history of endometriosis in the abdominal wall. Most recent imaging identified a mass in the left rectus abdominis that was 10 cm in its greatest dimension longitudinally. 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 Constant pain is made more challenging due to significant constipation related to narcotic pain medicine. As such she has been taking Tylenol and ibuprofen to relieve the pain and is doing so in doses greater than what is recommended. In addition, the patient has had significant hypertension that has been treated by her primary care physician with atenolol, but may need additional intervention due to persistence. Historically, the patient has had a hysterectomy without oophorectomy. She continues to report clots discharge vaginally that occur in a cyclical fashion. She has had a and had a related DVT/PE. Due to the VTE history she reports she has not been able to get any control. She presents very anxious to have the rectus abdominis mass removed. Medical History: Active Ambulatory Problems Diagnosis Date Noted Asthma (CMS/HCC) 10/10/2022 Benign essential hypertension (CMS/HCC) 10/10/2022 Dysfunctional uterine bleeding 10/10/2022 Leukocytosis 10/10/2022 Mixed anxiety and depressive disorder 10/10/2022 Past Medical History: Diagnosis Date Bilateral pulmonary embolism (CMS/HCC) Endometriosis GERD (gastroesophageal reflux disease) Migraine headache (CMS/HCC) Tonsillar hypertrophy Family History Problem Relation Name Age of Onset Hypertension Mother Paget's disease of bone Mother Other (Fatty liver) Father Hypertension Father Learning disabilities Brother ADD / ADHD Brother Asthma Brother Lung cancer Maternal Grandmother Heart disease Paternal Grandmother Diabetes Paternal Grandmother Stroke Paternal Grandmother Heart disease Paternal Grandfather Melanoma Neg Hx Social History Tobacco Use Smoking status: Never Smokeless tobacco: Never Vaping Use Vaping status: Not on file Substance Use Topics Alcohol use: Yes Comment: Alcohol: 1-2 drinks/monthly or less Caffeine: 1-2 cups/day coffee, tea Drug use: Never Past Surgical History: Procedure Laterality Date SECTION, CLASSIC 2012 HYSTERECTOMY 04/16/2015 TONSILLECTOMY 2014 No Known Allergies Review of Systems: A complete 12 point review of systems was performed and is negative except as noted in the history of present illness. Vital Signs: Vitals: 03/24/23 1040 BP: (!) 148/107 Pulse: 85 Resp: 16 Temp: 36.3 C (97.3 F) SpO2: 98% Physical Exam: GEN: Anxious, Healthy appearing HEENT: Moist mucus membranes, normocephalic CARDS: RRR PULM: No respiratory distress GI: Soft, non-distended. Palpable mass in the left rectus abdominus inferiro to the umbilicus. Tender to palpation. No skin changes. SKIN: No rashes or lesions. Pfannenstiel incision NEURO: No gross sensorimotor deficits EXT: No arm or leg swelling Imaging: I have personally reviewed the images and the radiologist's report. Recent CT scan demonstrates an endometrioma within the left rectus abdominus muscle 10cm in greatest dimension Assessment: This is a 37 y.o. female who presents with a left rectus abdominis endometrioma that is significantly symptomatic. The patient has a history of venous thromboembolisms and has not been able to get any hormone therapy such as control as a result. She has had a hysterectomy but her ovaries remain. Plan: -- Surgical resection of this mass is likely indicated however the patient is not optimized medically. Surgical resection will require abdominal wall reconstruction for which I will work with our hernia specialists. --I will discuss with her notch grinder the value of abdominal exploration for additional sites of endometriosis as well as oophorectomy at the time of surgery to minimize estrogen exposure. -- Acutely, the patient will benefit from additional pain medicine including muscle relaxer or narcotic pain medication. I have counseled her on the use of additional bowel regimen to maintain regular soft stools especially while on these medications. -- Hypertension needs to be addressed. If this is pain related to some degree, the pain medicine above will improve her status. Nonetheless, it seems she has been hypertensive for a consistent period of time which raises concerns. The patient asked very appropriate questions that were answered to the best of my ability with the current information at hand. She knows to call with any questions or concerns that arise Vu Juarez MD, MPH @[email or web address]@ @[email or web address]@ documented in this encounter [facility] Work Phone: Evaluation note 09-05-2022 Note Date & Type Note Facility 09-05-2022 Evaluation note Encounter Date Diagnosis Assessment Notes September, Eye irritation (ICD-10 - H57.89) Discussed diagnosis with patient. Advised that there are no signs of bacterial infection present today on exam. Advised that this could be due to allergies, a viral cause, or due to contacts. Encouraged warm compresses to the area. May use a lubricating eyedrop such as artificial tears. Advised that symptoms should resolve in about 48 hours, if symptoms do not improve, follow-up with PCP or eye doctor. Immediate evaluation for signs/symptoms as discussed. Patient verbalizes understanding and is agreeable with treatment plan. [facility] Other Clinical Note 09-28-2021 Note Date & Type Note Facility 09-28-2021 Note PROCEDURE: XR PELVIS W_OBL MIN 3 VIEWS COMPARISON: HISTORY: Disorder of sacrum FINDINGS: BONES:No fracture, acute abnormality, or significant arthropathy. SOFT TISSUES:Negative. No visible soft tissue swelling. EFFUSION:None visible. OTHER: Negative. IMPRESSION: No acute abnormality Electronically authenticated by: ASHLEY CARRANZA Date: 2021-09-28 07:58 [facility] Clinical Note 09-28-2021 Note Date & Type Note Facility 09-28-2021 Note PROCEDURE: XR TIB_FI B LT 2V COMPARISON: 07/17/2020 HISTORY: Pain in left leg FINDINGS: BONES:No acute fracture or dislocation. Stable sclerosis along the distal tibia. Enthesopathic spurring plantar calcaneus SOFT TISSUES:Negative. No visible soft tissue swelling. EFFUSION:None visible. OTHER: Negative. IMPRESSION: Stable exam, no interval change Electronically authenticated by: ASHLEY CARRANZA Date: 2021-09-28 07:56 [facility] Evaluation note Note Date & Type Note Facility Evaluation note Diagnosis Endometrioma- Primary Endometriosis, site unspecified documented in this encounter [facility] Work Phone: Evaluation note Note Date & Type Note Facility Evaluation note Diagnosis Endometrioma Endometriosis, site unspecified documented in this encounter [facility] Work Phone: History general Narrative - Reported Note Date & Type Note Facility History general Narrative - Reported Type Medical History HTN (hypertension) Medical History Anxiety and depression Medical History migraine headache Medical History seasonal allergies Surgical History essure Surgical History EGD Surgical History C section Surgical History hysterectomy 2015 Hospitalization History PE Hospitalization History child x3 Hospitalization History demise x1 [facility] Other Summary Purpose Family History No Family History Records FoundNo Family History Records FoundNo Family History Records FoundNo Family History Records Found Advance Directives No Advanced Directives Records FoundNo Advanced Directives Records FoundNo Advanced Directives Records FoundNo Advanced Directives Records Found Additional Source Comments INFORMATION SOURCE (unrecogn ized section and content) DATE CREATED AUTHOR 05/01/2022 [facility] DATE CREATED AUTHOR AUTHOR'S ORGANIZ ATION 08/10/2022 [facility] DATE CREATED AUTHOR AUTHOR'S ORGANIZ ATION 03/26/2023 [facility] DATE CREATED AUTHOR AUTHOR'S ORGANIZ ATION 04/10/2023 [facility] EPIC REASON FOR VISIT (unrecogniz ed section and content) Reason Comments New Patient Visit Reason Comments Endometriosis Specialty Diagnoses / Procedures Referred By Frankie salmon Referred To Contact General Surgery Diagnoses Endometrioma Vu Juarez [facility] [id number] [facility] Department of Surgery-Surgical Oncology [place] [phone] [place] [id number] [facility] [place] [phone] Referral ID Status Reason Start Date Expiration Date Visits Requested Visits Authorized [id number] Authorized Specialty Services Required 3 03/30/2024 1 1 Care Teams (unrecognized sec tion and content) Resident Services Supervisor Relationship Specialty Start Date End Date Joseph Sotelo MD PCP - General Family Medicine 03/18/23 Resident Services Supervisor Relationship Specialty Start Date End Date Joseph Sotelo MD [address] [place] [id number] PCP - General Family Medicine 04/02/23 FOR RECORDS PERTAINING TO PATIENTS WHO ARE OR HAVE BEEN ENROLLED IN A CHEMICAL DEPENDENCY/SUBSTANCEABUSE PROGRAM, SOME INFORMATION MAY BE OMITTED. This clinical summary was aggregated from multiple sources. Caution should be exercised in using it in the provision of clinical care. This summary normalizes information from multiple sources, and as a consequence, information in this document may materially change the coding, format and clinical context of patient data. In addition, data may be omitted in some cases. CLINICAL DECISIONS SHOULD BE BASED ON THE PRIMARY CLINICAL RECORDS. [facility] [employer] [facility]. provides no warranty or guarantee of the accuracy or completeness of information in this document.
== END 2023-04-22 15:13 | disposition home or self-care (01) ==
LOC: CARD 15:12
PROVIDERS: PCP Family Medicine; Visit Provider Family Medicine
DX: R00.2 Palpitations (principal)
CPT/HCPCS: 93246

== ENCOUNTER 2023-12-21 00:36 | Emergency (ER) | payer BC, SELFPAY ==
[2023-12-21 00:40] VITALS: BP 139/92; PULSE 92; TEMP 36.4; O2SAT 100; BMI 27.4
--- OUTSIDE RECORDS SUMMARY | 2023-12-21 00:44 | XMS_ITS | CCD ---
Author Organization [facility] Care Team Providers Care Secondary Teacher Name Role Phone JOSEPH SOTELO Primary Care Unavailable Kristopher Guerrero Admitting Unavailable ASHLEIGH, JOSEPH Carey Primary Care Unavailable Kristopher Guerrero Attending Unavailable ASHLEIGH, JOSEPH Carey Primary Care Unavailable NADEREBreanna, JOSEPH Carey Primary Care Unavailable NADERER, DR JOSEPH Carey Primary Care Unavailable JAMISON ., DR BOWERS Admitting Unavailable JAMISON ., DR BOWERS Attending Unavailable JAMISON ., DR BOWERS Consulting Unavailable ZIEBER, DR BRIAN Carlos Consulting Unavailable SHAIKH Neema KRISHNA Consulting Unavailable SHAIKH Neema KRISHNA Admitting Unavailable NADERER, DR JOSEPH Carey Primary Care Unavailable TOMI, SHAIKH Neema Attending Unavailable CATHY, JAYDEN Consulting Unavailable AYDIN CAMACHO Attending Unavailable NADJULIETTE, DR JOSEPH Carey Primary Care Unavailable DOUG, [...] Carlos Admitting Unavailable FRANTZ COVARRUBIAS Consulting Unavailable NAYEREBreanna, DR JOSEPH Carey Primary Care Unavailable ASHLEIGH, DR JOSEPH Carey Admitting Unavailable NADJULIETTE, DR JOSEPH Carey Attending Unavailable DILLON, DR ASHLEY Hightower Consulting Unavailable ASHLEIGH, DR JOSEPH Carey Consulting Unavailable Hilary Staton Unavailable Joseph Sotelo MD Primary Care Provider [facility] Attending Unavailable COMPA VALENZUELA Referring Unavailable ASHLEIGH, JOSEPH KIRKPATRICK Primary Care Unavailtramaine Sotelo MD, Joseph Kirkpatrick Primary Care Provider Joseph Sotelo MD Primary Care Provider ASHLEIGH, JOSEPH Referring Unavailable NADERER, JOSEPH Primary Care Unavailable NADERER, JOSEPH Referring Unavailable NADERER, JOSEPH Primary Care Unavailable NADERER, JOSEPH Attending Unavailable COMPA VALENZUELA Attending Unavailable NADERER, JOSEPH Attending Unavailable NADERER, JOSEPH Attending Unavailable Naderer Joseph LYLES Primary Care Provider LUÍS ANDRES Attending Unavailable NADERER, JOSEPH Referring Unavailable NADERER, JOSEPH Primary Care Unavailable LUÍS ANDRES Attending Unavailable NADERER, JOSEPH Referring Unavailable NADERER, JOSEPH Primary Care Unavailable LUÍS ANDRES Admitting Unavailable LUÍS ANDRES Attending Unavailable LUÍS ANDRES Referring Unavailable NADERER, JOSEPH Primary Care Unavailable ELSI RICK Attending Unavailable NADERER, JOSEPH Primary Care Unavailable NADERER, JOSEPH Referring Unavailable NADERER, JOSEPH Primary Care Unavailable DAYANARA CARROLL Attending Unavailable NADEREBreanna, JOSEPH Referring Unavailable NADERER, JOSEPH Primary Care Unavailable DAYANARA CARROLL Attending Unavailable NADERER, JOSEPH Referring Unavailable NADERER, JOSEPH Primary Care Unavailable LUÍS ANDRES Attending Unavailable LUÍS ANDRES Referring Unavailable NADERER, JOSEPH Primary Care Unavailable LUÍS ANDRES Referring Unavailable NADERER, JOSEPH Primary Care Unavailable DAYANARA CARROLL Referring Unavailable NADERER, JOSEPH Primary Care Unavailable DAYANARA CARROLL Attending Unavailable Medications Current Medications Medication Drug Class(es) Dates Sig (Normalized) Sig (Original) acetaminophen 500 mg oral tablet (6 sources) Start: 07-07-2023 take 2 tablets by mouth every eight hours as needed for pain acetaminophen (TYLENOL EXTRA STRENGTH) 500 mg tablet Take 2 tablets (1,000 mg total) by mouth every 8 (eight) hours as needed for pain. 30 tablet 0 07/07/2023 Active acetaminophen 325 mg / butalbital 50 mg / caffeine 40 mg oral tablet (11 sources) Barbiturate, Central Nervous System Stimulant, Methylxanthine Start: 09-16-2018 butalbital-acetami nophen-caff (FIORICET, ESGIC) 50-325-40 mg per tablet acetaminophen 325 mg / HYDROcodone bitartrate 5 mg oral tablet (7 sources) Opioid Agonist Start: 10-24-2023 take 1 tablet by mouth every six hours HYDROcodone-acetam inophen ([place]) 5-325 MG tablet Take 1 tablet by mouth every 6 (six) hours. 0 02/24/2023 Active amoxicillin 875 mg / clavulanate 125 mg oral tablet (3 sources) Penicillin-class Antibacterial Start: 07-22-2023 End: 08-01-2023 take 1 tablet by mouth once amoxicillin-pot clavulanate (AUGMENTIN) 875-125 mg per tablet Indications: Acute serous otitis media, recurrence not specified, unspecified laterality Take 1 tablet by mouth every 12 (twelve) hours for 10 days. 20 tablet 0 07/22/2023 08/01/2023 Active apixaban 2.5 mg oral tablet (5 sources) Factor Xa Inhibitor Start: 07-07-2023 End: 08-04-2023 take 1 tablet by mouth in the morning, then take 1 tablet by mouth at bedtime apixaban (ELIQUIS) 2.5 mg tablet Take 1 tablet (2.5 mg total) by mouth in the morning and 1 tablet (2.5 mg total) before bedtime. Do all this for 28 days. 56 tablet 0 07/07/2023 08/04/2023 Active baclofen 10 mg oral tablet (13 sources) gamma-Aminobutyric Acid-ergic Agonist Start: 03-24-2023 End: 07-27-2023 take 1 tablet by mouth in the morning, then take 1 tablet by mouth at bedtime baclofen (LIORESAL) 10 mg tablet Indications: Muscle spasms of both lower extremities Take 1 tablet (10 mg total) by mouth in the morning and 1 tablet (10 mg total) before bedtime. 60 tablet 0 07/27/2023 Active cholecalciferol 0.05 mg oral tablet (15 sources) Vitamin D Start: 02-05-2023 take 1 tablet by mouth once daily in the morning cholecalciferol, vitamin D3, 2,000 units tablet Indications: vitamin D deficiency Take 1 tablet (2,000 Units total) by mouth in the morning. Indications: low vitamin D levels. 0 02/05/2023 Active Start: 02-05-2023 cholecalcifero l, vitamin D3, 2,000 units tablet docusate sodium 100 mg oral capsule (6 sources) Start: 03-10-2023 take 1 capsule by mouth twice daily for constipation docusate sodium (COLACE) 100 mg capsule take 1 capsule by mouth twice a day if needed for constipation up to 10 days 0 03/10/2023 Active docusate sodium 50 mg / sennosides, correction 8.6 mg oral tablet (6 sources) Start: 07-07-2023 take 1 tablet by mouth once as needed sennosides-docusa te sodium (SENOKOT-S) 8.6-50 mg Take 1 tablet by mouth every 12 (twelve) hours as needed for constipation. 60 tablet 0 07/07/2023 Active DULoxetine 60 mg delayed release oral capsule (17 sources) Serotonin and Norepinephrine Reuptake Inhibitor Start: 01-28-2021 DULoxetine (CYMBALTA) 60 mg capsule Indications: Major depressive disorder, recurrent episode, moderate (CMS-HCC) TAKE 2 CAPSULES DAILY 180 capsule 3 01/28/2021 Active take 1 capsule by mouth in the m orning DULoxetine (Cymbalta) [address] capsule Take 60 mg by mouth in the morning. 0 Active Cymbalta Active ibuprofen 800 mg oral tablet (10 sources) Nonsteroidal Anti-inflammatory Drug Start: 07-07-2023 take 1 tablet by mouth every eight hours as needed for pain ibuprofen (MOTRIN) 800 mg tablet Take 1 tablet (800 mg total) by mouth every 8 (eight) hours as needed for pain. 60 tablet 0 07/07/2023 Active Start: 03-09-2023 take 1 tablet by rosa th three times daily for pain ibuprofen (MOTRIN) 800 mg tablet take 1 tablet by mouth three times a day if needed for mild pain up to 10 days 0 03/09/2023 Active lisinopril 10 mg oral tablet (9 sources) Angiotensin Converting Enzyme Inhibitor Start: 06-11-2023 take 1 tablet by mouth in the morning lisinopriL (PRINIVIL,ZESTRIL) 10 mg tablet Indications: hypertension Take 1 tablet (10 mg total) by mouth in the morning. Indications: high blood pressure. 0 06/11/2023 Active LORazepam 1 mg oral tablet (7 sources) Benzodiazepine take 1 tablet by mouth every six hours as needed for anxiety LORazepam (ATIVAN) 1 mg tablet Take 1 tablet (1 mg total) by mouth every 6 (six) hours as needed for anxiety. 0 Active methylcellulose 2000 mg powder for oral suspension (2 sources) methylcellulose oral powder Take by mouth once daily. 0 Active 24 hr metoprolol succinate 25 mg extended release oral tablet (13 sources) beta-Adrenergic Fredi Start: 05-06-2023 take 1 tablet by mouth every twenty-four hours in the morning metoprolol succinate XL (TOPROL XL) 25 mg 24 hr tablet Take 1 tablet (25 mg total) by mouth in the morning. Sinus tachycardia. 0 05/06/2023 Active omeprazole 40 mg delayed release oral capsule (17 sources) Proton Pump Inhibitor Start: 01-13-2015 take 1 capsule by mouth once daily before breakfast omeprazole (PriLOSEC) 40 mg capsule Indications: gastroesophageal reflux disease Take 1 capsule (40 mg total) by mouth every morning before breakfast Indications: gastroesophageal reflux disease. 0 07/13/2017 Active Omeprazole Activ e ondansetron 4 mg disintegrating oral tablet (8 sources) Serotonin-3 Receptor Antagonist Start: 02-24-2023 take 1 tablet by mouth every eight hours as needed ondansetron ODT (Zofran-ODT) 4 MG disintegrating tablet Take 4 mg by mouth every 8 (eight) hours if needed. 0 02/24/2023 Active Start: 04-24-2018 End: 06-29-2023 take 1 tablet by mouth every eight hours as needed for nausea and vomiting ondansetron (ZOFRAN) 4 mg tablet Take 1 tablet (4 mg total) by mouth every 8 (eight) hours as needed for nausea or vomiting for up to 12 doses. 12 tablet 0 04/24/2018 06/29/2023 Discontinued (Therapy completed) OXcarbazepine 300 mg oral tablet (9 sources) Anti-epileptic Agent Start: 03-15-2023 take 1 tablet by mouth in the morning, then take 1 tablet by mouth at bedtime OXcarbazepine (TRILEPTAL) 300 mg tablet Take 1 tablet (300 mg total) by mouth in the morning and 1 tablet (300 mg total) before bedtime. depression. 0 03/15/2023 Active Ozempic (1 source) Ozempic Active Ozempic 0.25 mg or 0.5 mg (2 mg/3 mL) pen injector (2 sources) Start: 03-09-2023 Ozempic 0.25 mg or 0.5 mg (2 mg/3 mL) pen injector OZEMPIC 0.25 mg or 0.5 mg (2 mg/3 mL) pen injector (4 sources) Start: 03-09-2023 OZEMPIC 0.25 mg or 0.5 mg (2 mg/3 mL) pen injector polyethylene glycol 3350 35307 mg powder for oral solution (15 sources) Osmotic Laxative polyethylene glycol (GLYCOLAX) 17 gram/dose powder Indications: constipation Take 17 g by mouth in the morning. Indications: constipation. 0 Active promethazine hydrochloride 50 mg oral tablet (16 sources) Phenothiazine Start: 05-25-2023 End: 08-23-2023 take 0.5 tablet by mouth every four hours as needed for nausea promethazine (PHENERGAN) 50 mg tablet Take 0.5 tablets (25 mg total) by mouth every 4 (four) hours as needed for nausea or vomiting. 0 05/25/2023 08/23/2023 Active Start: 05-25-2023 End: 08-23-2023 take 1 tablet by mouth every four hours promethazine (PHENERGAN) 25 mg tablet Take 1 tablet (25 mg total) by mouth every 4 (four) hours. 0 05/25/2023 08/23/2023 Active Start: 04-16-2023 take 1 tablet by rosa th every six hours for nausea promethazine (Phenergan) 50 MG tablet Indications: Nausea and vomiting, unspecified vomiting type Take 1 tablet (50 mg) by mouth every 6 (six) hours if needed for nausea or vomiting 30 tablet 1 04/16/2023 Active 0.25 mg, 0.5 mg dose 1.5 ml semaglutide 1.34 mg/ml pen injector (3 sources) Start: 06-13-2022 inject 0.25 mg by subcutaneous injection every week Ozempic, 0.25 or 0.5 MG/DOSE, 2 MG/1.5ML solution pen-injector Inject 0.25 mg under the skin 1 (one) time per week. 0 06/13/2022 Active topiramate 50 mg oral tablet (17 sources) Start: 11-01-2018 take 1 tablet by rosa th in the morning, then take 1 tablet by mouth at bedtime topiramate (TOPAMAX) 50 mg tablet Indications: migraine prevention Take 1 tablet (50 mg total) by mouth in the morning and 1 tablet (50 mg total) before bedtime. Indications: migraine prevention. 0 11/01/2018 Active Topiramate Activ e Completed/Discontinued Medications Medication Drug Class(es) Dates Sig (Normalized) Sig (Original) amoxicillin 875 mg oral tablet (1 source) Penicillin-class Antibacterial Start: 04-26-2019 take 1 tablet by mouth every twelve hours Amoxicillin 875 MG 1 tablet Orally every 12 hrs for 7 days Apr, Not-Taking atenolol 25 mg oral tablet (8 sources) beta-Adrenergic Fredi Start: 04-29-2017 End: 06-29-2023 atenolol (TENORMIN) 25 mg tablet Start: 04-29-2017 take 0.5 tablet by m outh once daily atenolol (Tenormin) 25 mg tablet Take 0.5 tablets (12.5 mg) by mouth once daily. 0 04/29/2017 Active Atenolol Active cefTRIAXone (1 source) Cephalosporin Antibacterial Start: 03-14-2017 Rocephin 500 mg Mar, 500 mg fluticasone propionate 0.05 mg/actuat metered dose nasal spray (1 source) Corticosteroid Start: 04-26-2019 take 1 spray(s) nasal route once daily Fluticasone Propionate 50 MCG/ACT 1 spray in each nostril Nasally Once a day for 30 day(s) Apr, Not-Taking hydroCHLOROthiazide 12.5 mg / lisinopril 20 mg oral tablet (8 sources) Thiazide Diuretic, Angiotensin Converting Enzyme Inhibitor Start: 03-25-2023 End: 06-11-2023 take 0.5 tablet by mouth in the morning lisinopril-hydro CHLOROthiazide 20-12.5 MG tablet Take 0.5 tablets by mouth in the morning. 0 03/25/2023 06/11/2023 Discontinued End: 06-29-2023 take 1 tablet by mouth once daily lisinopril-hydroCHLOROthiazide (PRINZIDE,ZESTORETIC) 20-12.5 mg per tablet take 1 tablet by mouth once daily 0 06/29/2023 Discontinued lamoTRIgine 100 mg oral tablet (6 sources) Mood Stabilizer, Anti-epileptic Agent Start: 11-01-2020 End: 06-29-2023 take 1 tablet by mouth once daily lamoTRIgine (LaMICtal) 100 mg tablet Indications: Major depressive disorder, recurrent episode, moderate (CMS-HCC) Take 1 tablet (100 mg total) by mouth daily. 90 tablet 0 11/01/2020 06/29/2023 Discontinued (Therapy completed) LaMICtal Not-Tommie ing SUMAtriptan 100 mg oral tablet (5 sources) Serotonin-1b and Serotonin-1d Receptor Agonist Start: 09-21-2018 End: 06-29-2023 SUMAtriptan (IMITREX) 100 mg tablet Problems Active Problems Problem Classification Problem Date Documented Da te Episodic/Chronic Adjustment disorders (11 sources) Posttraumatic stress disorder; Translations: [Reaction to severe stress, unspecified] Onset: 8 07-16-2017 Chronic Anxiety disorders (19 sources) Generalized anxiety disorder; Translations: [Generalized anxiety disorder] Onset: 8 Resolved: 3 03-24-2023 Chronic Attention-deficit, conduct, and disruptive behavior disorders (13 sources) Attention deficit hyperactivity disorder, predominantly inattentive type; Translations: [Attention-deficit hyperactivity disorder, predominantly inattentive type] Onset: 0 03-24-2023 Chronic Calculus of urinary tract (4 sources) Unspecified renal colic; Translations: [UNSPECIFIED RENAL COLIC] Onset: 3 Episodic Cardiac dysrhythmias (5 sources) Sinus tachycardia; Translations: [Tachycardia, unspecified] Onset: 3 05-06-2023 Episodic Endometriosis (20 sources) Endometriosis (clinical); Translations: [Endometrioma] Onset: 3 Resolved: 4 03-25-2023 Chronic Endometriosis (2 sources) Endometriosis; Translations: [Deep endometriosis of ovary, unspecified ovary] Onset: 3 Esophageal disorders (6 sources) Gastroesophageal reflux disease; Translations: [GERD (gastroesophageal reflux disease)] Onset: 5 03-24-2023 Chronic Essential hypertension (8 sources) Essential (primary) hypertension; Translations: [Benign essential hypertension] Onset: 5 03-24-2023 Chronic Fluid and electrolyte disorders (3 sources) Hypokalemia; Translations: [Hypokalemia] Onset: 3 04-08-2023 Episodic Gastrointestinal hemorrhage (1 source) Rectal hemorrhage; Translations: [Rectal bleed] Episodic Headache; including migraine (3 sources) Chronic migraine without aura; Translations: [Chronic migraine without aura, not intractable, without status migrainosus] Onset: 3 04-08-2023 Chronic Menopausal disorders (3 sources) Menopausal symptom; Translations: [Menopausal and female climacteric states] Onset: 4 07-22-2023 Chronic Mood disorders (16 sources) Recurrent major depressive episodes, moderate ; Translations: [Major depressive disorder, recurrent, moderate] Onset: 8 03-24-2023 Chronic Nutritional deficiencies (3 sources) Vitamin D deficiency; Translations: [Vitamin D deficiency, unspecified] Onset: 3 04-08-2023 Chronic Other aftercare (2 sources) Postoperative visit; Translations: [Encounter for other specified surgical aftercare] 07-22-2023 Episodic Other aftercare (1 source) Encounter for other specified surgical aftercare; Translations: [Encounter for other specified surgical aftercare] Onset: 4 Episodic Other connective tissue disease (4 sources) Pain in left leg; Translations: [PAIN IN LEFT LEG] Onset: 2 Episodic Other connective tissue disease (1 source) Spasm; Translations: [Other muscle spasm] 07-27-2023 Episodic Other eye disorders (1 source) Other specified disorders of eye and adnexa Episodic Other female genital disorders (5 sources) Abnormal uterine bleeding; Translations: [Other specified abnormal uterine and vaginal bleeding] Onset: 3 03-24-2023 Chronic Other gastrointestinal disorders (1 source) Irritable bowel syndrome; Translations: [IBS (irritable bowel syndrome)] Chronic Other gastrointestinal disorders (1 source) Constipation; Translations: [Constipation] Episodic Other gastrointestinal disorders (1 source) Diarrhea; Translations: [Diarrhea] Episodic Other nervous system disorders (1 source) Other acute postprocedural pain; Translations: [Other acute postprocedural pain] Onset: 4 Episodic Other non-traumatic joint disorders (3 sources) Joint pain; Translations: [Pain in unspecified joint] Onset: 3 04-08-2023 Episodic Other nutritional; endocrine; and metabolic disorders (3 sources) Metabolic syndrome X; Translations: [Metabolic syndrome] Onset: 3 04-08-2023 Chronic Other nutritional; endocrine; and metabolic disorders (3 sources) Morbid obesity; Translations: [Morbid (severe) obesity due to excess calories] Onset: 3 04-08-2023 Chronic Other skin disorders (1 source) Abdominal mass; Translations: [Localized swelling, mass and lump, trunk] 07-30-2023 Episodic Otitis media and related conditions (2 sources) Acute non-suppurative otitis media - serous; Translations: [Acute serous otitis media, unspecified ear] Onset: 4 07-22-2023 Episodic Residual codes; unclassified (1 source) Pain, unspecified; Translations: [Pain, unspecified] Onset: 4 Episodic Spondylosis; intervertebral disc disorders; other back problems (3 sources) Degeneration of lumbar intervertebral disc; Translations: [Other intervertebral disc degeneration, lumbar region] Onset: 3 04-08-2023 Chronic Unclassified (1 source) New Patient Onset: 4 Past or Other Problems Problem Classification Problem Date Documented Da te Episodic/Chronic Abdominal pain (14 sources) Left sided abdominal pain; Translations: [Left sided abdominal pain] Onset: 06-04-2023 Resolved: 07-22-2023 06-04-2023 Episodic Asthma (5 sources) Asthma; Translations: [Unspecified asthma, uncomplicated] Onset: 10-10-2022 Resolved: 04-08-2023 03-24-2023 Chronic Diseases of white blood cells (3 sources) Leukocytosis; Translations: [Elevated white blood cell count, unspecified] Onset: 10-10-2022 Resolved: 04-08-2023 04-08-2023 Chronic Genitourinary symptoms and ill-defined conditions (2 sources) Blood in urine; Translations: [Hematuria, unspecified] Onset: 11-29-2014 03-24-2023 Episodic Mood disorders (6 sources) Mood disorders Onset: 07-06-2023 07-06-2023 Other complications of (2 sources) Hereditary disease in family possibly affecting fetus; Translations: [Maternal care for (suspected) hereditary disease in fetus, not applicable or unspecified] Onset: 03-24-2011 03-24-2023 Episodic Other connective tissue disease (5 sources) Pain in right leg; Translations: [PAIN IN RIGHT LEG] Onset: 12-30-2021 Episodic Other female genital disorders (4 sources) Other specified noninflammatory disorders of vagina; Translations: [OTH SPEC NONINFLAMMATORY D/O VAGINA] Onset: 08-20-2021 Episodic Other gastrointestinal disorders (12 sources) Pelvic mass; Translations: [Intra-abdominal and pelvic swelling, mass and lump, unspecified site] Onset: 06-04-2023 Resolved: 07-22-2023 06-03-2023 Episodic Other gastrointestinal disorders (3 sources) Intra-abdominal and pelvic swelling, mass and lump, unspecified site; Translations: [Intra-abdominal and pelvic swelling, mass and lump, unspecified site] Onset: 06-04-2023 Episodic Other lower respiratory disease (1 source) Pleurodynia; Translations: [PLEURODYNIA] Onset: 12-31-2021 Episodic Phlebitis; thrombophlebitis and thromboembolism (5 sources) History of thromboembolism of vein; Translations: [...] Name Value Interpretation Reference Range Facil ity XR FEMUR LT 2+ VIEWSon 09-25 XR FEMUR LT 2+ VIEWS XR FEMUR LT 2+ VIEWS XR FEMUR LT 2+ VIEWS Clinical history:Left leg pain Comparison: None. Findings: No acute process fracture or dislocation. There is normal alignment and mineralization. Concern for occult process consider bone scan. Impression: No acute process with fairly unremarkable appearance of the left femur. Finalized by Solomon Roberson MD on 09/26/2023 9:30 AM Normal [facility] XR HIP LT 2-3 VIEWS W OR WO PELVISon 09-26-2023 XR HIP LT 2-3 VIEWS W OR WO PELVIS XR HIP LT 2-3 VIEWS W OR WO PELVIS XR HIP LT 2-3 VIEWS W OR WO PELVIS INDICATION: Left leg pain. Left hip pain FINDINGS: Satisfactory alignment of the left hip. No fracture or dislocation. Joint spaces well-preserved. IMPRESSION: 1. No acute findings. Finalized by Braulio Menchaca MD on 09/26/2023 6:59 PM Normal [facility] BASIC METABOLIC PANLon 07-05 Anion gap [Moles/Vol] 7 mmol/L Normal 5-15 [facility] Comment on above: Performed By: #### C BCA, BMP #### [facility] ([id number]) [address], [address] [place] [address] Calcium [Mass/Vol] 7.8 mg/dL Low 8.5-10.5 [facility] Comment on above: Performed By: #### C BCA, BMP #### [facility] ([id number]) [address], [address] [place] [address] Chloride [Moles/Vol] 111 mmol/L High 98-109 [facility] Comment on above: Performed By: #### C BCA, BMP #### [facility] ([id number]) [address], [address] [place] [address] CO2 [Moles/Vol] 22 mmol/L Normal 22-32 [facility] Comment on above: Performed By: #### C BCA, BMP #### [facility] ([id number]) [address], [address] [place] [address] Creatinine [Mass/Vol] 0.62 mg/dL Normal 0.40-1.00 [facility] Comment on above: Result Comment: METH OD TRACEABLE TO IDMS STANDARD Performed By: #### C BCA, BMP #### [facility] ([id number]) [address], [address] [place] [address] eGFR (CKD-EPI) NON-RACE DEPENDENT >90 Normal >59 [facility] Comment on above: Result Comment: Reported eGFR is based on the CKD-EPI 2020 equation that does not use a race coefficient. Performed By: #### C BCA, BMP #### [facility] ([id number]) [address], [address] [place] [address] Glucose [Mass/Vol] 118 mg/dL High 65-99 [facility] Comment on above: Performed By: #### C BCA, BMP #### [facility] ([id number]) [address] [place] [address] Potassium [Moles/Vol] 3.6 mmol/L Normal 3.5-5.0 [facility] Comment on above: Performed By: #### C BCA, BMP #### [facility] ([id number]) [address], [address] [place] [address] Sodium [Moles/Vol] 140 mmol/L Normal 134-146 [facility] Comment on above: Performed By: #### C BCA, BMP #### [facility] ([id number]) [address] [address] Urea nitrogen [Mass/Vol] 10 mg/dL Normal 5-23 [facility] Comment on above: Performed By: #### C BCA, BMP #### [facility] ([id number]) [address] [address] [address] [place] [address] CBC AND AUTO DIFFon 07-06-19 24 ABSOLUTE BASOPHIL 0.0 X10E9/L Normal 0.0-0.2 [facility] Comment on above: Performed By: #### C BCA, BMP #### [facility] ([id number]) [address], [address] [place] [address] ABSOLUTE NEUTROPHIL 12.5 X10E9/L High 1.5-6.6 [facility] Comment on above: Performed By: #### C BETTY, BMP #### [facility] ([id number]) [address], [address] [place] [address] Basophils/100 WBC (Bld) 0.1 % Normal [facility] Comment on above: Performed By: #### C BETTY, BMP #### [facility] ([id number]) [address] [place] [address] Eosinophils (Bld) [#/Vol] 0.0 10*3/uL Normal 0.0-0.4 [facility] Comment on above: Performed By: #### C BETTY, BMP #### [facility] ([id number]) [address] [place] [address] Eosinophils/100 WBC (Bld) 0.0 % Normal [facility] Comment on above: Performed By: #### C BETTY, BMP #### [facility] ([id number]) [address] [place] [address] Erythrocyte distribution width (RBC) [Ratio] 14.1 % Normal 11.5-15.0 [facility] Comment on above: Performed By: #### C BETTY, BMP #### [facility] ([id number]) [address] [place] [address] Hematocrit (Bld) [Volume fraction] 38.7 % Normal 35-47 [facility] Comment on above: Performed By: #### C BETTY, BMP #### [facility] ([id number]) [address] [place] [address] Hemoglobin (Bld) [Mass/Vol] 13.0 g/dL Normal 11.7-15.5 [facility] Comment on above: Performed By: #### C BCA, BMP #### [facility] ([id number]) [address] [place] [address] Lymphocytes (Bld) [#/Vol] 0.8 10*3/uL Low 1.0-3.5 [facility] Comment on above: Performed By: #### C BETTY, BMP #### [facility] ([id number]) [address] [place] [address] Lymphocytes/100 WBC (Bld) 5.9 % Normal [facility] Comment on above: Performed By: #### C BETTY, BMP #### [facility] ([id number]) [address] [place] [address] MCH (RBC) [Entitic mass] 29.7 pg Normal 27-34 [facility] Comment on above: Performed By: #### C BETTY, BMP #### [facility] ([id number]) [address] [place] [address] MCHC (RBC) [Mass/Vol] 33.6 g/dL Normal 32-36 [facility] Comment on above: Performed By: #### C BCA, BMP #### [facility] ([id number]) [address] [place] [address] MCV (RBC) [Entitic vol] 88 fL Normal 80-100 [facility] Comment on above: Performed By: #### C BCA, BMP #### [facility] ([id number]) [address] [place] [address] Monocytes (Bld) [#/Vol] 0.4 10*3/uL Normal 0-0.9 [facility] Comment on above: Performed By: #### C BCA, BMP #### [facility] ([id number]) [address] [place] [address] Monocytes/100 WBC (Bld) 3.3 % Normal [facility] Comment on above: Performed By: #### C BETTY, BMP #### [facility] ([id number]) [address] [place] [address] Neutrophils/100 WBC (Bld) 90.7 % Normal [facility] Comment on above: Performed By: #### C BETTY, BMP #### [facility] ([id number]) [address] [place] [address] Platelet mean volume (Bld) [Entitic vol] 6.4 fL Low 7-12 [facility] Comment on above: Performed By: #### C BETTY, BMP #### [facility] ([id number]) [address], [facility] [address] [place] [address] Platelets (Bld) [#/Vol] 349 10*3/uL Normal 150-450 [facility] Comment on above: Performed By: #### C BETTY, BMP #### [facility] ([id number]) [address] [place] [address] RBC COUNT 4.37 X10E12/L Normal 3.80-5.20 [facility] Comment on above: Performed By: #### Charity HERNÁNDEZ, BMP #### [facility] ([id number]) [address] [place] [address] WBC (Bld) [#/Vol] 13.8 10*3/uL High 4.0-11.0 [facility] Comment on above: Performed By: #### C BETTY, BMP #### [facility] ([id number]) [address] [place] [address] HCG ( test) Ql (U)o n 07-06-2023 Beta HCG ( test) Ql (U) Negative Normal NEG [facility] Comment on above: Performed By: #### 2 106-3 #### [facility] ([id number]) [address] [place] [address] Surgical Pathologyon 024 Surgical Pathology Normal [facility] Comment on above: Result Comment: [facility] [address] [place] [address] Surgical Pathology Consultation Patient Name:GISSEL DEL ROSARIO:1985 (Age: 38)Gender:FTaken:07/06/2023eported:07/10/2023hysician(s):Luís Andres M.D. ([phone])Copy To: Rec. #:[id number]: #[id number] Final Pathologic Diagnosis Bilateral fallopian tubes and ovaries and abdominal wall mass, resection (11 H&E): Ovaries, 2, with serosal adhesions and focal involvement by endometriosis. Unremarkable bilateral fallopian tubes. Portion of fibrovascular tissue, fibroadipose, and skeletal muscle, with interstitial hemorrhage, degenerative changes of muscle fibers, and interstitial hemorrhages, with scattered entrapped glands and degenerated blood consistent with endometriosis. Four benign lymph nodes Report Electronically Signed Out gp/07/10/2023Wagner Duncan MD Interpretation performed at [facility], [address] [place] [address], License number: [id number]. Clinical History Pelvic pain. Gross Description Received in formalin labeled CARIN, bilateral tubes and ovaries and abdominal wall mass are bilateral ovaries resected with portions of fallopian tube, designated at the bench as complex a and complex B. Additionally in the container are numerous fragments of purple-edwards rubbery and fibrous soft tissue. Ovary a is 2.2 x 1.5 x 1 cm and ovary B (partially fragmented) reapproximates to 1.8 x 1.6 x 1.5 cm. The cortical surfaces are del real and bosselated. The specimen are sectioned to reveal simple smooth lined cysts ranging from 0.3 cm to 0.6 cm in greatest dimension, with no papillary excrescences identified. Fallopian tube a is fimbriated, 3.5 cm in length by 0.4 cm in diameter. Fallopian tube B is 2.4 cm in length ranging from 0.5 cm to 1 cm in diameter. The specimen is received blunted and dilated at the apparent distal end, with no fimbria identified. The serosa is purple-edwards, smooth and glistening. Received separately in the container are numerous fragments of rubbery soft tissue, 8 x 6 x 2 cm in aggregate. The fragments are sectioned to reveal cauterized, fibrous cut surfaces with prominent adhesions. There are 4 possible lymph nodes ranging from 0.6 cm to 0.9 cm in greatest dimension. Cassettes A ovary A B ovary B C fallopian tube A D fallopian tube B E-G rubbery soft tissue H 1 lymph node, bisected I-J 2 lymph nodes, trisected, 1 lymph node each K 1 lymph node, serially sectioned (11,ss,[id number], m2) . /07/07/2023O Microscopic Findings Microscopic examination performed. Specimen(s) Received Bilateral tubes and ovaries and abdominal wall mass Fee Codes(s): 1; 48[address] CBC AND AUTO DIFFon 06-26-19 ABSOLUTE BASOPHIL 0.1 X10E9/L Normal 0.0-0.2 [facility] Comment on above: Performed By: #### C BCA #### [facility] ([id number]) [address] [place] [address], [facility] [address] [place] [address] ABSOLUTE NEUTROPHIL 6.4 X10E9/L Normal 1.5-6.6 [facility] Comment on above: Performed By: #### C BCA #### [facility] ([id number]) [address] [place] [address], [address] [place] [address] Basophils/100 WBC (Bld) 0.6 % Normal [facility] Comment on above: Performed By: #### C BCA #### [facility] ([id number]) [address] [place] [address] [address] [place] [address] Eosinophils (Bld) [#/Vol] 0.1 10*3/uL Normal 0.0-0.4 [facility] Comment on above: Performed By: #### C BCA #### [facility] ([id number]) [address] [place] [address] Eosinophils/100 WBC (Bld) 0.7 % Normal [facility] Comment on above: Performed By: #### C BCA #### [facility] ([id number]) [address] [place] [address] Erythrocyte distribution width (RBC) [Ratio] 14.6 % Normal 11.5-15.0 [facility] Comment on above: Performed By: #### C BCA #### [facility] ([id number]) [address] [place] [address] Hematocrit (Bld) [Volume fraction] 42.5 % Normal 35-47 [facility] Comment on above: Performed By: #### C BCA #### [facility] ([id number]) [address] [place] [address] Hemoglobin (Bld) [Mass/Vol] 14.2 g/dL Normal 11.7-15.5 [facility] Comment on above: Performed By: #### C BCA #### [facility] ([id number]) [address] [place] [address] Lymphocytes (Bld) [#/Vol] 3.7 10*3/uL High 1.0-3.5 [facility] Comment on above: Performed By: #### C BCA #### [facility] ([id number]) [address] [place] [address] Lymphocytes/100 WBC (Bld) 33.4 % Normal [facility] Comment on above: Performed By: #### C BCA #### [facility] ([id number]) [address] [place] [address] MCH (RBC) [Entitic mass] 29.3 pg Normal 27-34 [facility] Comment on above: Performed By: #### C BCA #### [facility] ([id number]) [address] [place] [address] MCHC (RBC) [Mass/Vol] 33.4 g/dL Normal 32-36 [facility] Comment on above: Performed By: #### C BCA #### [facility] ([id number]) [address] [place] [address] MCV (RBC) [Entitic vol] 88 fL Normal 80-100 [facility] Comment on above: Performed By: #### C BCA #### [facility] ([id number]) [address] [place] [address] Monocytes (Bld) [#/Vol] 0.7 10*3/uL Normal 0-0.9 [facility] Comment on above: Performed By: #### C BCA #### [facility] ([id number]) [address] [place] [address] Monocytes/100 WBC (Bld) 6.5 % Normal [facility] Comment on above: Performed By: #### C BCA #### [facility] ([id number]) [address] [place] [address] Neutrophils/100 WBC (Bld) 58.8 % Normal [facility] Comment on above: Performed By: #### C BCA #### [facility] ([id number]) [address] [place] [address] Platelet mean volume (Bld) [Entitic vol] 6.6 fL Low 7-12 [facility] Comment on above: Performed By: #### C BCA #### [facility] ([id number]) [address] [place] [address] Platelets (Bld) [#/Vol] 367 10*3/uL Normal 150-450 [facility] Comment on above: Performed By: #### C BCA #### [facility] ([id number]) [address] [place] [address] RBC COUNT 4.84 X10E12/L Normal 3.80-5.20 [facility] Comment on above: Performed By: #### C BCA #### [facility] ([id number]) [address] [place] [address] WBC (Bld) [#/Vol] 11.0 10*3/uL Normal 4.0-11.0 [place] Comment on above: Performed By: #### C BCA #### [facility] ([id number]) [address] [place] [address] MR PELVIS WO CONTon 06-16-19 MR PELVIS WO CONT MR PELVIS WO CONT MR PELVIS WO CONT HISTORY: Pelvic mass; Endometriosis COMPARISON: CT abdomen pelvis 02/24/2023. TECHNIQUE: Multiplanar, multisequence MR imaging of the pelvis was performed without intravenous contrast. FINDINGS: UTERUS: Postsurgical changes of a cervical sparing hysterectomy. Remnant cervix is unremarkable. No no evidence of mass. No evidence of deep infiltrating endometriosis involving the cervix. OVARIES: Left ovarian endometrioma measuring 1.7 x 1.4 cm (02/23). Mild right hydrosalpinx. Benign right ovarian cyst/dominant follicle measuring 2.3 cm. Mild T2 hyperintense scarring adjacent the right ovary without convincing evidence of deep infiltrating endometriosis. VAGINA: Normal. BOWEL: No abnormal bowel thickening or dilatation. BLADDER: Normal. PERITONEUM/RETROPERIT ONEUM: No free fluid. LYMPH NODES: No abnormally enlarged lymph nodes. VESSELS: Unremarkable. BONES AND SOFT TISSUES: Asymmetric thickening of the left rectus muscle measuring 3.8 x 2.8 cm with multiple foci of T1 hyperintensity (02/14) and mild ill-defined T2 hyperintensity (04/21). Nonspecific nodular area of T1 and T2 isointensity posterior to the rectus muscle within the rectus sheath measuring 3.4 x 1.2 x 4.7 cm (11/15) has associated vascular flow voids, better seen on the recent CT from 02/24/2023. Mild adjacent fat stranding in the deep subcutaneous fat of the left abdominal wall. Further assessment is limited by lack of contrast. IMPRESSION: 1. Asymmetric thickening of the left rectus abdominis with small posterior nodular masses and prominent vessels. Evaluation is limited by lack of IV contrast. MR features are compatible with abdominal wall endometriosis. Appearance is overall not significantly changed since CT of 02/24/2023. 2. Left ovarian endometrioma measuring 1.7 cm. Finalized by Ethan Rodrigez MD on 06/16/2023 11:29 AM Normal [facility] CT ABD/PELVIS WO CONon 08-05 CT ABD/PELVIS [...] JAYDEN MORGAN Date: 2022-08-05 16:55 Normal [facility] QUANTIFERON TB GOLD PLUSon 0 06-18-2022 QuantiFERON Criteria Comment Normal [facility] Comment on above: Result Comment: Gagandeep [...] test. Performed By: #### Q NTTB #### [facility] [address] [place] [address] Dr. Yovanny Alcantara QuantiFERON Incubation Incubation performed. Normal [facility] Comment on above: Performed By: #### Q NTTB #### [facility] [address] [place] [address] Dr. Yovanny Alcantara QuantiFERON Mitogen Value >10.00 Normal [facility] Comment on above: Performed By: #### Q NTTB #### [facility] [address] [place] [address] Dr. Yovanny Alcantara QuantiFERON Nil Value 0.03 IU/mL Normal [facility] Comment on above: Performed By: #### Q NTTB #### [facility] [address] [place] [address] Dr. Yovanny Alcantara QuantiFERON TB1 Ag Value 0.05 IU/mL Normal [facility] Comment on above: Performed By: #### Q NTTB #### [facility] [address] [place] [address] Dr. Yovanny Alcantara QuantiFERON TB2 Ag Value 0.06 IU/mL Normal [facility] Comment on above: Performed By: #### Q NTTB #### [facility] [address] [place] [address] Dr. Yovanny Alcantara QuantiFERON-TB Gold Plus Negative Normal Negative [facility] Comment on above: Result Comment: No r esponse to M tuberculosis antigens detected. Infection with M tuberculosis is unlikely, but high risk individuals should be considered for additional testing (ATS/IDSA/CDC Clinical Practice Guidelines, 2017). The reference range is an Antigen minus Nil result of <0.35 IU/mL. Chemiluminescence immunoassay methodology Performed By: #### Q NTTB #### [facility] [address] [place] [address] Dr. Yovanny Alcantara HEPATITIS B SURFACE ANTIBODY , QUANTon 06-17-2022 Hepatitis B Surf AB Quant 3.5 mIU/mL Critically low Immunity>9.9 [facility] Comment on above: Result Comment: Stat us of Immunity Anti-HBs Level Inconsistent with Immunity 0.0 - 9.9 Consistent with Immunity >9.9 Performed By: #### H EPBSRF ####[facility] [address] [place], [place] [address]QxDr. Yovanny Alcantara MMR IMMUNITYon 06-17-2022 Mumps Abs, IgG 17.4 AU/mL Normal Immune >10.9 [facility] Comment on above: Result Comment: Nega tive <9.0 Equivocal 9.0 - 10.9 Positive >10.9 A positive result generally indicates past exposure to Mumps virus or previous vaccination. Performed By: #### M MRIMMU #### [facility] [address] [place] [address] [address] Yovanny Alcantara Rubella Antibodies, IgG 1.68 index Normal Immune >0.99 [facility] Comment on above: Result Comment: Non- immune <0.90 Equivocal 0.90 - 0.99 Immune >0.99 Performed By: #### M MRIMMU #### [facility] [address] [address] [address] Yovanny Alcantara Rubeola Ab, IgG 108.0 AU/mL Normal Immune >16.4 [facility] Comment on above: Result Comment: Nega tive <13.5 Equivocal 13.5 - 16.4 Positive >16.4 Presence of antibodies to Rubeola is presumptive evidence of immunity except when acute infection is suspected. Performed By: #### M MRIMMU #### [facility] [address] [address] [address] Yovanny Alcantara VARICELLA IGG ABon 3 Varicella Zoster IgG 947 index Normal Immune >165 [facility] Comment on above: Result Comment: Nega tive <135 Equivocal 135 - 165 Positive >165 A positive result generally indicates exposure to the pathogen or administration of specific immunoglobulins, but it is not indication of active infection or stage of disease. Performed By: #### V ARCEL ####[facility] [address] [place], [place] [address]JpDr. Yovanny Alcantara Consent Formson 05-01-2022 Consent Forms [id number] [facility] US CESIA DOP LEG RTon 12-31-19 US CESIA DOP LEG RT Ultrasound venous [...] FRANTZ COVARRUBIAS Date: 2021-12-30 10:39 Normal [facility] CBC AUTO DIFFon 12-29-2021 BASO # 0.1 103/ul Normal 0.0-0.1 [facility] Comment on above: Performed By: #### C BC #### [facility] [address] [place] [address] [address] Yovanny Alcantara Basophils/100 WBC (Bld) 0.7 % Normal 0.2-2.0 [facility] Comment on above: Performed By: #### C BC #### [facility] [address] [place] [address] [address] Yovanny Alcantara EO # 0.2 103/ul Normal 0.0-0.7 [facility] Comment on above: Performed By: #### C BC #### [facility] [address] [address] [address] Yovanny Alcantara Eosinophils/100 WBC (Bld) 1.3 % Normal 0.9-7.0 [facility] Comment on above: Performed By: #### C BC #### [facility] [address] [place] [address] Dr. Yovanny Alcantara Erythrocyte distribution width (RBC) [Ratio] 13.9 % Normal 11.0-15.0 [facility] Comment on above: Performed By: #### C BC #### [facility] [address] [place] [address] Dr. Yovanny Alcantara Hematocrit (Bld) [Volume fraction] 43.7 % Normal 36.0-48.0 [facility] Comment on above: Performed By: #### C BC #### [facility] [address] [place] [address] Dr. Yovanny Alcantara Hemoglobin (Bld) [Mass/Vol] 13.8 g/dL Normal 12.0-16.0 [facility] Comment on above: Performed By: #### C BC #### [facility] [address] [place] [address] Dr. Yovanny Alcantara IG # 0.11 10e3/ul Critically high 0.00-0.03 [facility] Comment on above: Performed By: #### C BC #### [facility] [address] [place] [address] Dr. Yovanny Alcantara IG % 0.8 % Critically high 0.0-0.5 [facility] Comment on above: Performed By: #### C BC #### [facility] [address] [place] [address] Dr. Yovanny Alcantara LYMPH # 3.7 103/ul Normal 1.2-3.8 [facility] Comment on above: Performed By: #### C BC #### [facility] [address] [place] [address] Dr. Yovanny Alcantara Lymphocytes/100 WBC (Bld) 27.0 % Normal 20.5-60.0 [facility] Comment on above: Performed By: #### C BC #### [facility] [address] [place] [address] Dr. Yovanny Alcantara MANUAL DIFF REQ NO Normal [facility] Comment on above: Performed By: #### C BC #### [facility] [address] [address] [address] Yovanny Alcantara MCH (RBC) [Entitic mass] 26.7 pg Normal 26.7-34.0 [facility] Comment on above: Performed By: #### C BC #### [facility] [address] [place] [address] [address] Yovanny Alcantara MCHC (RBC) [Mass/Vol] 31.6 g/dL Normal 29.9-35.2 [facility] Comment on above: Performed By: #### C BC #### [facility] [address] [place] [address] Dr. Yovanny Alcantara MCV (RBC) [Entitic vol] 84.5 fL Normal 81.0-99.0 [facility] Comment on above: Performed By: #### C BC #### [facility] [address] [place] [address] Dr. Yovanny Alcantara MONO # 0.9 103/ul Critically high 0.3-0.8 [facility] Comment on above: Performed By: #### C BC #### [facility] [address] [place] [address] Dr. Yovanny Alcantara Monocytes/100 WBC (Bld) 6.5 % Normal 1.7-12.0 [facility] Comment on above: Performed By: #### C BC #### [facility] [address] [place] [address] Dr. Yovanny Alcantara NEUT # 8.8 103/ul Critically high 1.4-6.[address] [facility] Comment on above: Performed By: #### C BC #### [facility] [address] [place] [address] Dr. Yovanny Alcantara Neutrophils/100 WBC (Bld) 63.7 % Normal 43.0-75.0 [facility] Comment on above: Performed By: #### C BC #### [facility] [address] [place] [address] Dr. Yovanny Alcantara Platelet mean volume (Bld) [Entitic vol] 8.3 fL Critically low 9.5-13.5 [facility] Comment on above: Performed By: #### C BC #### [facility] [address] [place], [place] [address] Dr. Yovanny Alcantara PLT 364 103/ul Normal 150-450 [facility] Comment on above: Performed By: #### C BC #### [facility] [address] [place], [place] [address] Dr. Yovanny Alcantara RBC 5.17 106/ul Normal 4.20-5.40 [facility] Comment on above: Performed By: #### C BC #### [facility] [address] [place], [place] [address] Dr. Yovanny Alcantara WBC 13.8 103/ul Critically high 4.0-11.0 [facility] Comment on above: Performed By: #### C BC #### [facility] [address] [place], [place] [address] Dr. Yovanny Alcantara CTA CHEST WO W CONon 2 022 CTA CHEST WO W CON EXAM: [...] by: AMINA WU Date: 2021-12-29 01:20 Normal [facility] D-DIMERon 12-29-2021 D-DIMER 0.68 mg/L FEU Critically high <=0.59 [facility] Comment on above: Performed By: #### P TT, PT, DDIM ####[facility] [address] [place] [address]Dr. Yovanny Alcantara D-DIMER COMMENTS SEE BELOW Normal [facility] Comment on above: Result Comment: Incr eases [...] Performed By: #### P TT, PT, DDIM ####[facility] [address] [place] [address]Dr. Yovanny Alcantara ER URINE PROFILEon 2 Bilirubin Ql (U) Negative Normal NEGATIVE [facility] Comment on above: Performed By: #### E RUR #### [facility] [address] [place] [address] Dr. Yovanny Alcantara Clarity (U) CLEAR Normal CLEAR [facility] Comment on above: Performed By: #### E RUR #### [facility] [address] [place] [address] Dr. Yovanny Alcantara Color (U) YELLOW Normal YELLOW [facility] Comment on above: Performed By: #### E RUR #### [facility] [address] [place] [address] Dr. Yovanny Alcantara ERUAHMike A micrscopic examination will be performed if indicated. Normal [facility] Comment on above: Performed By: #### E RUR #### [facility] [address] [place] [address] Dr. Yovanny Alcantara Glucose Ql (U) Negative Normal NEGATIVE [facility] Comment on above: Performed By: #### E RUR #### [facility] [address] [place] [address] Dr. Yovanny Alcantara Hemoglobin Ql (U) Negative Normal NEGATIVE [facility] Comment on above: Performed By: #### E RUR #### [facility] [address] [place] [address] Dr. Yovanny Alcantara Ketones Ql (U) Negative Normal NEGATIVE [facility] Comment on above: Performed By: #### E RUR #### [facility] [address] [place] [address] Dr. Yovanny Alcantara LEUKOCYTES Negative Normal NEGATIVE [facility] Comment on above: Performed By: #### E RUR #### [facility] [address] [place] [address] Dr. Yovanny Alcantara Nitrite Ql (U) Negative Normal NEGATIVE [facility] Comment on above: Performed By: #### E RUR #### [facility] [address] [place] [address] Dr. Yovanny Alcantara pH (U) 6.5 [pH] Normal 5-9 [facility] Comment on above: Performed By: #### E RUR #### [facility] [address] [place] [address] Dr. Yovanny Alcantara SPEC GRAVITY 1.020 Normal 1.005-<=1.025 [facility] Comment on above: Performed By: #### E RUR #### [facility] [address] [place] [address] Dr. Yovanny Alcantara UA PROTEIN Negative Normal NEGATIVE/ TRACE The [facility] Comment on above: Performed By: #### E RUR #### [facility] [address] [place] [address] Dr. Yovanny Alcantara UR MICRO IND NOT INDICATED Normal The [facility] Comment on above: Performed By: #### E RUR #### [facility] [address] [place] [address] Dr. Yovanny Alcantara Urobilinogen Qn (U) 0.2 {Eunice'U}/dL Normal 0.2 - 1.0 [facility] Comment on above: Performed By: #### E RUR #### [facility] [address] [place], [place] [address] Dr. Yovanny Alcantara PROTIMEon 12-29-2021 INR Coag (PPP) [Relative time] 0.94 {INR} Normal [facility] Comment on above: Performed By: #### P TT, PT, DDIM ####[facility] [id number] [place] [address]Dr. Yovanny Alcantara INR GUIDELINES SEE BELOW Normal [facility] Comment on above: Result Comment: JENNIFER RED INR: 2.0 - 3.0 CONDITIONS NOT LISTED BELOW 2.5 - 3.5 FOR PROSTHETIC HEART VALVE REPLACEMENT 2.5 - 3.5 RECURRENT THROMBOSIS Performed By: #### P TT, PT, DDIM ####[facility] [id number] [place] [address]Dr. Yovanny Alcantara PT Coag (PPP) [Time] 10.2 s Normal 9.0-11.6 [facility] Comment on above: Performed By: #### P TT, PT, DDIM ####[facility] [id number] [place] [address]Dr. Yovanny Alcantara PTTon 12-29-2021 aPTT Coag (Bld) [Time] 28.2 s Normal 22.3-36.2 [facility] Comment on above: Performed By: #### P TT, PT, DDIM ####[facility] [id number] [place] [address]Dr. Yovanny Alcantara .QC Respiratory Panel 2.1 (B ioFire)on 11-19-2021 Internal Control-Resp Panel 2.1(BioFire) Pass [facility] Comment on above: Order Comment: Order ed by Discern. [[id number]] Performed By: #### [id number] #### [facility] (DEFAULT) [address] [place] [address] Consent Formson 11-08-2021 Consent Forms [id number] .00OTGTIFF [facility] .QC Respiratory Panel 2.1 (B ioFire)on 11-02-2021 Internal Control-Resp Panel 2.1(BioFire) Pass Normal [facility] Comment on above: Order Comment: Order ed by Mirian. [[id number]] Performed By: #### [id number] #### [facility] (DEFAULT) [address] [place] [address] XR LSPINE 2_3 VIEWSon 2021 XR LSPINE [...] by: ASHLEY CARRANZA Date: 2021-09-28 07:54 Normal [facility] US PELVIS AND TRANSVAGon US PELVIS AND [...] by: BRIAN SINGER Date: 2021-08-20 09:02 Normal [facility] Consent Formson 05-16-2021 Consent Forms [id number] [facility] .QC Respiratory Panel 2.1 (B ioFire)on 05-13-2021 Internal Control-Resp Panel 2.1(BioFire) Pass Normal [facility] Comment on above: Order Comment: Order ed by Discern. [[id number]] Performed By: #### [id number] #### [facility] (DEFAULT) [address] [place] [address] Vital Signs Date Time Vital Sign Value Performing Clinician Facility 08-05-2023 10:57-0400 Body height 157.5 cm [facility]anara Carroll [facility] 08-05-2023 10:57-0400 Body mass index (BMI) [Ratio] 28.34 kg/m2 [facility] 08-05-2023 10:57-0400 Body temperature 97.9 [degF] [facility] Carroll [facility] 08-05-2023 10:57-0400 Body weight 70.31 kg Dayanara Carroll PA [facility] 08-05-2023 10:57-0400 Diastolic blood pressure 118 mm[Hg] Dayanara Carroll PA [facility] 08-05-2023 10:57-0400 Heart rate 115 /min Dayanara Carroll PA [facility] 08-05-2023 10:57-0400 Respiratory rate 18 /min [facility]anara Carroll PA [facility] 08-05-2023 10:57-0400 SaO2% (BldA) [Mass fraction] 100 % Dayanara Carroll PA [facility] 08-05-2023 10:57-0400 Systolic blood pressure 149 mm[Hg] Day[facility]ara Carroll [facility] 07-30-2023 14:43-0400 Body height 157.5 cm Basel Sharda PA Work Phone: [facility] 07-30-2023 14:43-0400 Body mass index (BMI) [Ratio] 29.26 kg/m2 Basel Sharda PA Work Phone: [facility] 07-30-2023 14:43-0400 Body weight 72.58 kg Basel Sharda PA [facility] 07-22-2023 08:52-0400 Body height 157.5 cm Dayanara Carroll PA Work Phone: [facility] 07-22-2023 08:52-0400 Body mass index (BMI) [Ratio] 29.26 kg/m2 Dayanara Carroll PA Work Phone: [facility] 07-22-2023 08:52-0400 Body weight 72.58 kg Dayanara Carroll PA Work Phone: [facility] 07-22-2023 08:52-0400 Diastolic blood pressure 95 mm[Hg] Dayanara Carroll PA Work Phone: [facility] 07-22-2023 08:52-0400 Heart rate 90 /min Dayanara Carroll PA Work Phone: [facility] 07-22-2023 08:52-0400 Respiratory rate 20 /min Dayanara Carroll PA Work Phone: [facility] 07-22-2023 08:52-0400 SaO2% (BldA) [Mass fraction] 100 % Dayanara Carroll PA Work Phone: [facility] 07-22-2023 08:52-0400 Systolic blood pressure 122 mm[Hg] Dayanara Carroll PA Work Phone: [facility] 06-17-2023 08:25-0500 Body height 157.5 cm Luís Andres MD Work Phone: [facility] 06-17-2023 08:25-0500 Body mass index (BMI) [Ratio] 29.29 kg/m2 Luís Andres MD Work Phone: [facility] 06-17-2023 08:25-0500 Body temperature 98.6 [degF] Luís Andres MD Work Phone: [facility] 06-17-2023 08:25-0500 Body weight 72.67 kg Luís Andres MD Work Phone: [facility] 06-17-2023 08:25-0500 Diastolic blood pressure 84 mm[Hg] Luís Andres MD Work Phone: [facility] 06-17-2023 08:25-0500 Heart rate 95 /min Luís Andres MD Work Phone: [facility] 06-17-2023 08:25-0500 SaO2% (BldA) [Mass fraction] 90 % Luís Andres MD Work Phone: [facility] 06-17-2023 08:25-0500 Systolic blood pressure 128 mm[Hg] Luís Andres MD Work Phone: [facility] 06-11-2023 15:12-0500 Body height 157.5 cm Joseph Sotelo MD Work Phone: [facility] 06-11-2023 15:12-0500 Body mass index (BMI) [Ratio] 28.53 kg/m2 Joseph Sotelo MD Work Phone: [facility] 06-11-2023 15:12-0500 Body temperature 97.81 [degF] Joseph Sotelo MD Work Phone: [facility] 06-11-2023 15:12-0500 Body weight 70.76 kg Joseph Sotelo MD Work Phone: [facility] 06-11-2023 15:12-0500 Diastolic blood pressure 60 mm[Hg] Joseph Sotelo MD Work Phone: [facility] 06-11-2023 15:12-0500 Heart rate 101 /min Joseph Sotelo MD Work Phone: [facility] 06-11-2023 15:12-0500 SaO2% (BldA) [Mass fraction] 99 % Joseph Sotelo MD Work Phone: [facility] 06-11-2023 15:12-0500 Systolic blood pressure 100 mm[Hg] Joseph Sotelo MD Work Phone: [facility] 06-03-2023 08:26-0500 Diastolic blood pressure 64 mm[Hg] Luís Andres MD Work Phone: [facility] 06-03-2023 08:26-0500 Systolic blood pressure 106 mm[Hg] Luís Andres MD Work Phone: [facility] 06-03-2023 08:12-0500 Body height 157.5 cm Luís Andres MD Work Phone: [facility] 06-03-2023 08:12-0500 Body mass index (BMI) [Ratio] 29.26 kg/m2 Luís Andres MD Work Phone: [facility] 06-03-2023 08:12-0500 Body weight 72.58 kg Lusí Andres MD Work Phone: [facility] 03-24-2023 10:40-0500 Body height 154.1 cm Vu Juarez MD MPH Work Phone: [facility] 03-24-2023 10:40-0500 Body mass index (BMI) [Ratio] 31.92 kg/m2 Vu Juarez MD MPH Work Phone: [facility] 03-24-2023 10:40-0500 Body temperature 97.3 [degF] Vu Juarez MD MPH Work Phone: [facility] 03-24-2023 10:40-0500 Body weight 75.8 kg Vu Juarez MD MPH Work Phone: [facility] 03-24-2023 10:40-0500 Diastolic blood pressure 107 mm[Hg] Vu Juarez MD MPH Work Phone: [facility] 03-24-2023 10:40-0500 Heart rate 85 /min Vu Juarez MD MPH Work Phone: [facility] 03-24-2023 10:40-0500 Respiratory rate 16 /min Vu Juarez MD MPH Work Phone: [facility] 03-24-2023 10:40-0500 SaO2% (BldA) [Mass fraction] 98 % Vu Juarez MD MPH Work Phone: [facility] 03-24-2023 10:40-0500 Systolic blood pressure 148 mm[Hg] Vu Juarez MD MPH Work Phone: [facility] 09-05-2022 10:45-0400 Body height 155.57 cm Hilary Staton Other [facility] Other 09-05-2022 10:45-0400 Body mass index (BMI) [Ratio] 33.73 kg/m2 Hilary Staton Other [facility] Other 09-05-2022 10:45-0400 Body temperature 97.3 [degF] Hilary Staton Other [facility] Other 09-05-2022 10:45-0400 Body weight 81.65 kg Hilary Staton Other [facility] Other 09-05-2022 10:45-0400 Diastolic blood pressure 98 mm[Hg] Hilary Staton Other [facility] Other 09-05-2022 10:45-0400 Respiratory rate 18 /min Hilary Staton Other [facility] Other 09-05-2022 10:45-0400 SaO2% (BldA) [Mass fraction] 99 % Hilary Staton Other [facility] Other 09-05-2022 10:45-0400 Systolic blood pressure 139 mm[Hg] Hilary Staton Other [facility] Other Encounters Encounter Date Encounter Type Care Provider Facility Start: 09-25-2023 End: 09-26-2023 [facility] Start: 08-05-2023 End: 08-05-2023 [facility] Start: 08-05-2023 End: 08-05-2023 Postop follow up visit related to original px Dayanara Perezne PA Work Phone: Diana Recio [facility] Comment on above: Encounter for postop erative care (Primary Dx); Menopausal symptoms Start: 08-03-2023 Telephone encounter Dayanara cooney PA Work Phone: [facility] Start: 07-30-2023 End: 07-30-2023 Postop follow up visit related to original px Isaac Robin PA Work Phone: [facility] Comment on above: Abdominal wall mass (Primary Dx) Start: 07-27-2023 Orders Only Dayanara Carroll PA Work Phone: [facility] Comment on above: Muscle spasms of bot h lower extremities (Primary Dx) Start: 07-22-2023 End: 07-22-2023 ambulatory [facility] Start: 07-22-2023 End: 07-22-2023 Postop follow up visit related to original px Dayanara Carroll PA Work Phone: [facility] Comment on above: Encounter for postop erative care (Primary Dx); Menopausal symptoms; Acute serous otitis media, recurrence not specified, unspecified laterality Start: 07-13-2023 Telephone encounter Sheyla Mendoza RN [facility] Start: 07-07-2023 End: 07-07-2023 Evaluation and management of inpatient ELSI RICK [facility] Start: 07-06-2023 End: 07-07-2023 Evaluation and management of inpatient [facility] Start: 06-29-2023 End: 06-29-2023 ambulatory JOSEPH SOTELO [facility] Start: 06-29-2023 End: 06-29-2023 Admission to [facility] Phone Call Provider 2 [facility] On [facility] Start: 06-26-2023 End: 06-27-2023 ambulatory LUÍS [facility] Start: 06-26-2023 Encounter for other preprocedural examination DAYANARA CARROLL [facility] Start: 06-25-2023 Orders Only Luís Andres MD Work Phone: [facility] Comment on above: Preop testing (Prima ry Dx) Start: 06-25-2023 Patient encounter status Luís Andres MD Work Phone: [facility] Start: 06-17-2023 End: 06-17-2023 ambulatory LUÍS 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 Start: 06-11-2023 Bamboo flowsheet Joseph Sotelo MD Work Phone: [facility] Start: 06-11-2023 Bamboo flowsheet Joseph Sotelo MD Work Phone: [facility] Start: 06-03-2023 End: 06-03-2023 ambulatory LUÍS ANDRES [facility] Start: 06-03-2023 End: 06-03-2023 Office outpatient new 60 minutes Luís Andres MD Work Phone: [facility] Comment on above: Pelvic mass (Primary Dx); Endometriosis; 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; Pelvic pain Start: 05-22-2023 ambulatory JOSEPH SOTELO [facility] Start: 05-20-2023 Telephone encounter Sheyla Mendoza RN [facility] Start: 05-19-2023 End: 05-19-2023 ambulatory COMPA DYEZIO Not Available Start: 05-06-2023 End: 05-06-2023 ambulatory JOSEPH SOTELO Not Available Start: 04-08-2023 End: 04-08-2023 Office outpatient new 45 minutes Jeremy Jang MD Work Phone: [facility] Comment on above: Endometrioma Start: 04-08-2023 End: 04-08-2023 ambulatory JOSEPH SOTELO Not Available Start: 03-24-2023 End: 03-24-2023 [facility] Start: 03-24-2023 End: 03-24-2023 Office outpatient new 60 minutes Vu Juarez MD MPH Work Phone: [facility] Comment on above: Endometrioma (Primar y Dx) Start: 09-05-2022 End: 09-05-2022 ambulatory Hilary Staton Other [facility] Other Start: 09-05-2022 Office outpatient ne w 20 minutes Hilary Staton [facility] Start: 08-05-2022 End: 08-06-2022 ambulatory SHAIKH Neema KRISHNA Facility: Start: 06-16-2022 End: 06-16-2022 ambulatory AYDIN CAMACHO Facility:[facility] Start: 04-23-2022 End: 04-24-2022 ambulatory Kristopher Guerrero Facility:[facility] Start: 12-30-2021 End: 12-31-[address] JOSEPH SOTELO Facility:[facility] Start: 12-28-2021 End: 12-29-[address] JOSEPH SOTELO Facility:[facility] Start: 11-19-2021 End: 11-20-2021 ambulatory JOSEPH SOTELO Facility:[facility] Start: 11-02-2021 End: 11-02-2021 ambulatory JOSEPH SOTELO Facility:[facility] Start: 09-27-2021 End: 09-28-[address] JSOEPH SOTELO Facility:[facility] Start: 08-20-2021 End: 08-21-[address] JOSEPH SOTELO Facility: Start: 05-14-2021 End: 05-14-2021 ambulatory JOSEPH SOTELO Facility:[facility] Procedures Date Procedure Procedure Detail Performing Clinician Start: 07-22-2023 Follow-up visit Follow-up JEAN CARLOS CARROLL Start: 07-06-2023 Adult depression scr eening assessment Sheyla Mendoza RN Plan of Treatment Date Care Activity Detail Author Start: 2036 Zoster Vaccines (1 of 2) Zoste r Vaccines (1 of 2) [facility] Start: 07-28-2027 DTaP,Tdap and Td Vaccines (6 - Td or Tdap) DTaP,Tdap and Td Vaccines (6 - Td or Tdap) [facility] Start: 07-28-2027 DTaP/Tdap/Td Vaccine s (6 - Td or Tdap) DTaP/Tdap/Td Vaccines (6 - Td or Tdap) [facility] Start: 08-04-2024 Adult BMI Screening Adult BMI Screen ing [facility] Start: 07-29-2024 Adult BMI Screening Adult BMI Screen ing [facility] Start: 07-29-2024 Tobacco Screening Tobacco Screening [facility] Start: 07-21-2024 Adult BMI Screening Adult BMI Screen ing [facility] Start: 07-21-2024 Tobacco Screening Tobacco Screening [facility] Start: 07-06-2024 Adult BMI Screening Adult BMI Screen ing [facility] Start: 07-05-2024 Depression Screening Depression Scre ening [facility] Start: 07-05-2024 Tobacco Screening Tobacco Screening [facility] Start: 06-29-2024 Tobacco Screening Tobacco Screening [facility] Start: 06-17-2024 Adult BMI Screening Adult BMI Screen ing [facility] Start: 06-17-2024 Tobacco Screening Tobacco Screening [facility] Start: 06-03-2024 Adult BMI Screening Adult BMI Screen ing [facility] Start: 06-03-2024 Tobacco Screening Tobacco Screening [facility] Start: 01-03-2024 Influenza vaccination Influenza Vacc ine [facility] Start: 08-10-2023 End: 08-10-2023 Patient encounter procedure 08/10/2023 2:45 PM EDT [facility] [address] [place] [address] Joseph Sotelo MD [address] [place] [address] [facility] Start: 08-05-2023 End: 08-05-2023 Patient encounter procedure [facility] Start: 07-30-2023 End: 07-30-2023 Patient encounter procedure 07/30/2023 3:00 PM EDT Office Visit [facility] General Surgery [address] [facility] [address] [place] [address] [facility] Start: 07-22-2023 End: 07-22-2023 Patient encounter procedure 07/22/2023 9:00 AM EDT Office Visit [facility] [address] [place] [address] Dayanara Carroll PA [address] [place] [address] [facility] Start: 07-06-2023 End: 07-06-2023 Admission to same day surgery center [facility] Comment on above: DAVINCI SALPINGO OOP HORECTOMY/ ABDOMINAL WALL RESECTION ENDOMETRIOSIS DAVINCI SALPINGO OOP HORECTOMY Start: 07-06-2023 End: 07-06-2023 DAVINCI SALPINGO OOPHORECTOMY DAVINCI SALPINGO OOPHORECTOMY PELVIC PAIN 07/06/2023 10:00 AM EST [facility] Start: 07-06-2023 End: 07-06-2023 Laps fulg/exc ovary viscera/peritoneal surface DAVINCI FULGURATION ENDOMETRIAL IMPLANTS PELVIC PAIN 07/06/2023 10:00 AM EST [facility] Start: 07-06-2023 Subsequent hospital visit by physician 07/06/2023 10:00 AM EST Hospital Encounter [facility] Surgery [address] [place] [phone] Luís Andres MD [address] [place] [address], [address] [place] [address] [facility] Start: 07-06-2023 End: 07-06-2023 Unlisted laparoscopic px abd pertoneum & omentum DAVINCI RESECTION MASS PERITONEAL PELVIC PAIN 07/06/2023 10:00 AM EST [facility] Start: 06-29-2023 End: 06-29-2023 Admission to establishment 06/29/2023 12:45 PM EST Support Visit [facility] On [address] [phone] [facility]etyissel [facility] On [facility] Start: 06-17-2023 End: 06-17-2023 Patient encounter procedure 06/17/2023 8:30 AM EST Office Visit [facility] [address] [place] [address] [address] [place] [phone] Luís [place] [address] [place] [address], [address] [place] [address] [facility] Start: 06-11-2023 End: 06-11-2023 Patient encounter procedure 06/11/2023 3:15 PM EST Office Visit [facility] [address] [place] [phone] Joseph Sotelo MD [address] [place] [phone] Arrived [facility] Comment on above: Arrived Start: 06-03-2023 End: 06-03-2024 MR Pelvis WO contrast MR pelvis without contrast Imaging Routine Pelvic mass Endometriosis Expected: 06/03/2023, Expires: 06/03/2024 [facility] Work Phone: Comment on above: Expected: 06/03/2023 , Expires: 06/03/2024 Start: 06-03-2023 End: 06-03-2023 Patient encounter procedure 06/03/2023 8:00 AM EST Office Visit [facility] [address] [place] [address] [address] [place] [address] Luís Andres MD [address] [place] [address], [address] [place] [address] [facility] Start: 01-02-2023 COVID-19 Vaccine ( season) COVID-19 Vaccine ( season) [facility] Start: 01-02-2023 Influenza vaccination U [facility] Start: 04-26-2021 COVID-19 Vaccine (4 - Moderna series) COVID-19 Vaccine (4 - Moderna series) [facility] Start: 12-24-2017 Varicella vaccination Varicell a Vaccines (2 of 2 - 13+ 2-dose series) [facility] Start: 2007 Screening for malign ant neoplasm of cervix [facility] Start: 2004 Adult BMI Follow Up Plan Adult BMI Follow Up Plan [facility] Start: 2004 Adult BMI Screening Adult BMI Screen ing [facility] Start: 2004 Diabetes mellitus screening Diabetes Screening [facility] Start: 2004 Hepatitis C screening Hepatitis C Sc reening [facility] Start: 1998 Depression Screening Depression Scre ening [facility] Start: 1998 Tobacco Screening Tobacco Screening [facility] Start: 1986 HIV screening HIV Screening [facility] Start: 1986 Lipid panel Lipid Panel [facility] Start: 1986 Yearly Adult Physical Yearly Adult P hysical [facility] End: 06-25-2024 CBC W Auto Differential panel - Blood CBC with auto diff Lab Routine Preop testing 1 Occurrences starting 06/25/2023 until 06/25/2024 [facility] Work Phone: Comment on above: 1 Occurrences starti ng 06/25/2023 until 06/25/2024 Immunizations Immunization Date Immunization Notes Care Provider [facility] 02-18-2021 influenza, injectabl e, quadrivalent, preservative free Sheyla Mendoza RN [facility] 02-18-2021 influenza virus vaccine, unspecified formulation Vu Juarez MD MPH Work Phone: [facility] Work Phone: 01-31-2020 influenza, injectabl e, quadrivalent, preservative free Sheyla Mendoza RN [facility] 01-31-2020 influenza virus vaccine, unspecified formulation Sheyla Mendoza RN [facility] 01-29-2020 influenza, injectabl e, quadrivalent, preservative free Sheyla Mendoza RN [facility] 01-13-2019 influenza, injectabl e, quadrivalent, preservative free Sheyla Mendoza RN [facility] 01-01-2018 influenza, injectabl e, quadrivalent, preservative free Sheyla Mendoza RN [facility] 11-26-2017 hepatitis B vaccine, adult dosage Sheyla Mendoza RN [facility] 11-26-2017 varicella virus vaccine Vu Juarez MD MPH Work Phone: [facility] Work Phone: 07-27-2017 hepatitis B vaccine, adult dosage Sheyla Mendoza RN [facility] 07-27-2017 tetanus toxoid, reduced diphtheria toxoid, and acellular pertussis vaccine, adsorbed Sheyla Mendoza RN [facility] 01-11-2014 influenza, seasonal, injectable, preservative free Hilary Staton Other [facility] Other 12-28-1998 hepatitis B vaccine, pediatric or pediatric/adolescent dosage Sheyla Mendoza RN [facility] 12-28-1998 measles, mumps and rubella virus vaccine Sheyla Mendoza RN [facility] 12-28-1998 TD(adult) unspecifie d formulation Sheyla Mendoza RN [facility] 07-01-1991 diphtheria, tetanus toxoids and pertussis vaccine Sheyla Mendoza RN [facility] 07-01-1991 trivalent poliovirus vaccine, live, oral Sheyla Mendoza RN [facility] 01-30-1989 diphtheria, tetanus toxoids and pertussis vaccine Sheyla Mendoza RN [facility] 01-30-1989 measles, mumps and rubella virus vaccine Sheyla Mendoza RN [facility] 1986 diphtheria, tetanus toxoids and pertussis vaccine Sheyla Mendoza RN [facility] 1986 trivalent poliovirus vaccine, live, oral Sheyla Mendoza RN [facility] 1986 diphtheria, tetanus toxoids and pertussis vaccine Sheyla Mendoza RN [facility] 1986 trivalent poliovirus vaccine, live, oral Sheyla Mendoza RN [facility] Payers Date Payer Category Payer Unknown [id number] 2017 [facility] GTFAN [id number] 1986 Unknown [id number] 2.16.84 0.1.073593.3.579.2.593 1986 Unknown [id number] 2.16.84 0.1.826456.3.579.2.593 1986 Unknown [id number] 2.16.84 0.1.931869.3.579.2.593 1986 Unknown [id number] 2.16.84 0.1.514080.3.579.2.593 1986 Unknown [id number] 2.16.84 0.1.115750.3.579.2.593 1986 Unknown [id number] 2.16.8 40.1.009415.3.579.2.1245 1986 Unknown [id number] 2.16.84 0.1.048861.3.579.2.1286 1986 Unknown [id number] 2.16.84 0.1.840475.3.579.2.6 1986 Unknown [id number] 2.16.84 0.1.394231.3.579.2.1259 1986 Unknown [id number] 2.16.84 0.1.557283.3.579.2.1259 1986 Unknown [id number] 2.16.840 .1.520329.3.579.2.1259 1986 Unknown [id number] 2.16.840 .1.060600.3.579.2.9 1986 Unknown [id number] 2.16.8 40.1.208631.3.579.2.1286 1986 Unknown [id number] 2.16.8 40.1.810576.3.579.2.1286 1986 Unknown [id number] 2.16.8 40.1.626551.3.579.2.128 1986 Unknown [id number] 2.16.8 40.1.184502.3.579.2.128 1986 Unknown [id number] 2.16.8 40.1.200615.3.579.2.128 1986 Unknown [id number] 2.16.8 40.1.703678.3.579.2.1286 1986 Unknown [id number] 2.16.8 40.1.717276.3.579.2.1286 1986 Unknown [id number] 2.16.8 40.1.531651.3.579.2.1286 1986 Unknown [id number] 2.16.8 40.1.015381.3.579.2.1286 1986 Unknown [id number] 2.16.8 40.1.458366.3.579.2.1286 1986 Unknown [id number] 2.16.8 40.1.910445.3.579.2.1286 1986 Unknown [id number] 2.16.8 40.1.750072.3.579.2.1286 1959 Self-pay 1958 Unknown [id number] Unknown [id number] 2.16.84 0.1.978200.3.579.2.593 Social History Date Type Detail Facility Unknown if ever smoked [facility] Other Start: 05-30-2020 End: 04-08-2023 Sex Assigned At [facility] consumption unknown [facility] Work Phone: Start: 1985 Sex Assigned At Not on file [facility] Work Phone: Start: 03-14-2023 End: 04-08-2023 Exposure to SARS-CoV-2 (event) Not sure [facility] Start: 04-08-2023 End: 06-29-2023 Tobacco smoking status NHIS Never smoked tobacco [facility] Start: 04-08-2023 End: 06-29-2023 Tobacco use and exposure Smokeless tobacco non-user [facility] Work Phone: Start: 04-08-2023 Alcohol intake Ex-drinker (finding) [facility] Work Phone: Start: 05-30-2020 End: 04-08-2023 History of Social function [facility] Start: 11-26-2018 End: 07-30-2023 Alcohol intake Current drinker of alcohol (finding) [facility] Housing Instability Unknown [facility] Start: 11-02-2017 Alcohol Comment socially [facility] Start: 05-19-2023 End: 06-11-2023 Alcohol intake Lifetime non-drinker (finding) [facility] Within the last year , have you been afraid of your partner or ex-partner? No [facility] Are you now , , , , never or living with a partner? [facility] How often to you hav e a drink containing alcohol? Monthly or less [facility] How many standard drinks containing alcohol do you have on a typical day? 1 or 2 [facility] How often do you hav e 6 or more drinks on 1 occasion? Never [facility] How hard is it for y ou to pay for the very basics like food, housing, medical care, and heating Not very hard [facility] Do you feel stress - tense, restless, nervous, or anxious, or unable to sleep at night because your mind is troubled all the time - these days [OSQ] Only a little [facility] (I/We) worried wheth er (my/our) food would run out before (I/we) got money to buy more. Never true [facility] Start: 10-14-2022 Alcohol Comment Alcohol: 1-2 drinks/monthly or less Caffeine: 1-2 cups/day coffee, tea [facility] History of tobacco use Passive smoker [facility] Start: 06-29-2023 Alcohol Comment 0-1 per month [facility] Medical Equipment Procedure Code Equipment Code Equipment Origin al Text Equipment Identifier Dates Mesh [id number] Flt Vcl Abs Wvn Srg Hrn Repr - [id number] Start: 07-06-2023 Goals Date Patient Goal Desired Activity /State Personal health goal Comment on above: Formatting of this n ote might be different from the original. Evaluation of progress towards goal: Patient plans to discharge home with self care and with assistance from family. Clinical Notes 09-28-2021 to 08-05-2023 SEBASTIAN Wang - 08/05/2023 11:00 AM EDTTelephone Encounter - SEBASTIAN Wang - 08/03/2023 10:14 AM EDTTelephone Encounter - Dayanara SEBASTIAN Carroll - 08/03/2023 10:14 AM EDT Note Date & Type Note Facility 08-05-2023 History of Presen t illness Narrative Subjective: Gissle Del Rosario female who is 38 y.o. female who is s/p a LIF-VRN-emasq of adhesions, endometriosis resection on 07/06/23. Pathology: benign endometriosis She is doing well post-operatively. She has abdominal soreness, denies pain. Normal bowel and bladder habits. No fevers, chills, N/V, N/T, SOB, vaginal bleeding. She has a isolated history of PEs during and was placed on low dose eliquis during the post op period. Patient was originally a consultation from for evaluation and management of endometriosis, pelvic pain, cutaneous endometriosis. Patient has a history of a section in 2011 along with hysterectomy performed abdominally in 2014. Oncology History No history exists. Gissel Del Rosario Denies Early satiety Denies Abdominal distention Denies Leg swelling Denies Shortness of breath Denies Vaginal bleeding Denies Change in bowel habits Denies Change in bladder habits Denies Nausea and vomiting All other systems negative, unless specifically noted in HPI. Past Gynecologic History: OB History No obstetric history on file. No LMP recorded. Patient has had an implant. Hormonal Contraceptives No HRT use No History of abnormal pap No Past Surgical History: Procedure Laterality Date SECTION 2011 COLONOSCOPY 2009 [facility] ABDOMINAL WALL RESECTION ENDOMETRIOSIS WITH REPAIR N/A 07/06/2023 Performed by Luís Andres MD at [facility] LYSIS OF ADHESIONS X 60 MIN N/A 07/06/2023 Performed by Luís Andres MD at [facility] RESECTION MASS PERITONEAL/ SOFT TISSUE MASS REMOVAL POSTERIOR RECTUS SHEATH/EXCISIONAL DEBRIDMENT N/A 07/06/2023 Performed by Luis Antonio Flynn MD at [facility] SALPINGO OOPHORECTOMY Bilateral 07/06/2023 Performed by Luís Andres MD at [facility] ENDOMETRIAL ABLATION 2013 ESOPHAGOGASTRODUODENOSCOPY 2010 HYSTERECTOMY 04/16/2015 partial LITHOTRIPSY 2013 TONSILLECTOMY 2012 Past Medical History: Diagnosis Date Anxiety Dental disease one chipped tooth, right upper very back of mouth Depression Dizziness Endometriosis GERD (gastroesophageal reflux disease) Hypertension Kidney stones Pelvic pain PONV (postoperative nausea and vomiting) Pulmonary embolism ([facility]) 11/29/2010 during Sciatica Sinus tachycardia Visual impairment wears contacts Family History Problem Relation Age of Onset Lung cancer Maternal Grandmother Pancreatic cancer Maternal great-grandmother Anesthesia problems Neg Hx Social History Socioeconomic History Marital status: Spouse name: Not on file Number of children: Not on file Years of education: Not on file Highest education level: Not on file Occupational History Not on file Tobacco Use Smoking status: Never Passive exposure: Past Smokeless tobacco: Never Vaping Use Vaping Use: Never used Substance and Sexual Activity Alcohol use: Yes Comment: 0-1 per month Drug use: No Sexual activity: Not on file Other Topics Concern Not on file Social History Narrative Not on file Social Determinants of Health Financial Resource Strain: Not on file Food Insecurity: No Food Insecurity (07/30/2023) Hunger Screening Food Insecurity - Worry: Never True Food Insecurity - Inability: Never True Transportation Needs: No Transportation Needs (07/06/2023) PRAPARE - Transportation Lack of Transportation (Medical): No Lack of Transportation (Non-Medical): No Physical Activity: Not on file Stress: Not on file Social Connections: Not on file Interpersonal Safety: Not At Risk (07/06/2023) Humiliation, Afraid, Rape, and Kick questionnaire Fear of Current or Ex-Partner: No Emotionally Abused: No Physically Abused: No Sexually Abused: No Housing Instability: Low Risk (07/06/2023) Housing Instability Housing Instability: No Review of Symptoms: Pertinent items are noted in HPI. Objective: BP (!) 149/118 Pulse 115 Temp 36.6 C (97.9 F) (Oral) Resp 18 Ht 157.5 cm (5' 2.01 ) Wt 70.3 kg (155 lb) SpO2 100% BMI 28.34 kg/m ECO- Asymptomatic General appearance: alert, appears stated age and cooperative Head: Normocephalic, without obvious abnormality, atraumatic Ears: right TM slightly erythematous, left ear normal Lungs: clear to auscultation bilaterally Heart: regular rate and rhythm, S1, S2 normal, no murmur, click, rub or gallop Abdomen: soft, nontender, incisions c/d/I without evidence of infection Pelvic:deferred to next visit Extremities: extremities normal, atraumatic, no cyanosis or edema Pulses: 2+ and symmetric Skin: Skin color, texture, turgor normal. No rashes or lesions Lymph nodes: Cervical, supraclavicular, and axillary nodes normal. Neurologic: Grossly normal Labs: Lab Results Component Value Date WBC 13.8 (H) 07/06/2023 HGB 13.0 07/06/2023 HCT 38.7 07/06/2023 MCV 88 07/06/2023 PLT 349 07/06/2023 Lab Results Component Value Date GLU 118 (H) 07/06/2023 CALCIUM 7.8 (L) 07/06/2023 SODIUM 140 07/06/2023 K 3.6 07/06/2023 CO2 22 07/06/2023 BUN 10 07/06/2023 CREATININE 0.62 07/06/2023 No results found for: CA125 Assessment: Patient is diagnosed with Patient Active Problem List Diagnosis Major depressive disorder, recurrent episode, moderate (CMS-HCC) Generalized anxiety disorder Trauma and stressor-related disorder ADHD (attention deficit hyperactivity disorder), inattentive type Endometriosis Plan: Post op care - she is progressing well. Remain off work until August 16. Reviewed pathology which revealed benign endometriosis. Menopausal symptoms - discussed risks/benefits/alternatives to her menopausal symptoms considering recent history of severe endometriosis. Recommend waiting 6 months before initiating HRT considering the data associating immediate HRT with recurrent endometriosis. Re-evaluate with our team or benign director trial in 6 months. May consider transdermal estrogen, keeping in mind her isolated history of PEs. May also consider further symptom control with SSRI (currently on Cymbalta). *An evaluation and management service unrelated to the patient's post-op care was performed today (within the post operative period), therefore a modifier 24 was applied to this visit. *The patient has a documented plan of care to address pain. All questions were answered to the patient's satisfaction. She is agreeable to this plan of care. *This note was completed using a voice engineering manager system. Every effort was made to ensure accuracy. However, inadvertent computerized engineering manager errors may be present. .Total time spent was 26 minutes: Preparing to see the patient (e.g., review of tests) Performing a medically appropriate examination and/or evaluation Counseling and educating the patient/family/caregiver Ordering medications, tests, or procedures Documenting clinical information in the electronic or other health record Care coordination (not separately reported) Dayanara Carroll PA-C, RD, IF SEBASTIAN Wang 08/05/23 [id number] documented in this encounter [facility] 08-03-2023 Miscellaneous Notes Spoke with patient to move up her appt on 08/05/23 to 11am, patient confirmed. documented in this encounter [facility] 08-03-2023 Telephone encounter Note Spoke with patient to move up her appt on 08/05/23 to 11am, patient confirmed. [facility] 07-30-2023 History of Presen t illness Narrative Subjective: Gissel Del Rosario is a 38 y.o. female presented to the office for postop follow-up. Patient underwent combo case with Dr. Flynn and on 07/06/2023. Patient underwent [facility] SALPINGO OOPHORECTOMY DAVINCI ABDOMINAL WALL RESECTION ENDOMETRIOSIS WITH REPAIR [facility] LYSIS OF ADHESIONS X 60 MIN [facility] RESECTION MASS PERITONEAL/ SOFT TISSUE MASS REMOVAL POSTERIOR RECTUS SHEATH/EXCISIONAL DEBRIDMENT The General surgery aspect was performed by Dr. Flynn. Patient underwent robotic radical resection of abdominal wall mass. Excisional debridement of posterior rectus sheath and partial resection of rectus muscle 12 x 10 cm, implantation of mesh. No complication. Patient presented today stating that she is doing fairly well. Denies abdominal pain. She is able to take p.o. well without nausea or emesis. No change of bowel habits. No melena or hematochezia. No dysuria or hematuria. Objective: Final Pathologic Diagnosis Bilateral fallopian tubes and ovaries and abdominal wall mass, resection (11 H&E): Ovaries, 2, with serosal adhesions and focal involvement by endometriosis. Unremarkable bilateral fallopian tubes. Portion of fibrovascular tissue, fibroadipose, and skeletal muscle, with interstitial hemorrhage, degenerative changes of muscle fibers, and interstitial hemorrhages, with scattered entrapped glands and degenerated blood consistent with endometriosis. Four benign lymph nodes Physical Exam Alert and oriented no acute distress Abdomen soft without distention. No tenderness noted with palpation. Port sites healed well. No indication for infection. No erythema no discharge no bleeding Lower extremities no calf tenderness Assessment: Gissel Del Rosario is a 38 y.o.female status post combo case between and . DAVINCI SALPINGO OOPHORECTOMY DAVINCI ABDOMINAL WALL RESECTION ENDOMETRIOSIS WITH REPAIR [facility] LYSIS OF ADHESIONS X 60 MIN [facility] RESECTION MASS PERITONEAL/ SOFT TISSUE MASS REMOVAL POSTERIOR RECTUS SHEATH/EXCISIONAL DEBRIDMENT Patient doing fairly well. No complication Plan: 1) patient was encouraged to increase level of activity is as tolerated 2) all questions and concerns were addressed with patient 3) pathology report discussed with patient 4) patient was encouraged to call office for any further questions or concerns 5) follow-up with six-month Isaac Robin PA-C [facility] General Surgery [address] [facility] [address] [place] [address] SEBASTIAN Romero 07/30/23 [id number] documented in this encounter [facility] 07-22-2023 History of Presen t illness Narrative Subjective: Gissel Del Rosario female who is 38 y.o. female who is s/p a [id number]-anyyp of adhesions, endometriosis resection on 07/06/23. Pathology: benign endometriosis She is doing well post-operatively. She has abdominal soreness, denies pain. She reports numbness in the right leg which is slowly improving. Normal bowel and bladder habits. No fevers, chills, N/V, N/T, SOB, vaginal bleeding. She has a isolated history of PEs during and was placed on low dose eliquis during the post op period. Patient was originally a consultation from for evaluation and management of endometriosis, pelvic pain, cutaneous endometriosis. Patient has a history of a section in 2011 along with hysterectomy performed abdominally in 2014. Oncology History No history exists. Gissel Del Rosario Denies Early satiety Denies Abdominal distention Denies Leg swelling Denies Shortness of breath Denies Vaginal bleeding Denies Change in bowel habits Denies Change in bladder habits Denies Nausea and vomiting All other systems negative, unless specifically noted in HPI. Past Gynecologic History: OB History No obstetric history on file. No LMP recorded. Patient has had an implant. Hormonal Contraceptives No HRT use No History of abnormal pap No Past Surgical History: Procedure Laterality Date SECTION 2011 COLONOSCOPY 2010 [facility] ABDOMINAL WALL RESECTION ENDOMETRIOSIS WITH REPAIR N/A 07/06/2023 Performed by Luís Andres MD at [facility] LYSIS OF ADHESIONS X 60 MIN N/A 07/06/2023 Performed by Luís Andres MD at [facility] RESECTION MASS PERITONEAL/ SOFT TISSUE MASS REMOVAL POSTERIOR RECTUS SHEATH/EXCISIONAL DEBRIDMENT N/A 07/06/2023 Performed by Luis Antonio Flynn MD at [facility] Bilateral 07/06/2023 Performed by Luís Andres MD at [facility] ENDOMETRIAL ABLATION 2014 ESOPHAGOGASTRODUODENOSCOPY 2010 HYSTERECTOMY 04/16/2015 partial LITHOTRIPSY 2013 TONSILLECTOMY 2012 Past Medical History: Diagnosis Date Anxiety Dental disease one chipped tooth, right upper very back of mouth Depression Dizziness Endometriosis GERD (gastroesophageal reflux disease) Hypertension Kidney stones Pelvic pain PONV (postoperative nausea and vomiting) Pulmonary embolism ([facility]) 11/29/2010 during Sciatica Sinus tachycardia Visual impairment wears contacts Family History Problem Relation Age of Onset Lung cancer Maternal Grandmother Pancreatic cancer Maternal great-grandmother Anesthesia problems Neg Hx Social History Socioeconomic History Marital status: Spouse name: Not on file Number of children: Not on file Years of education: Not on file Highest education level: Not on file Occupational History Not on file Tobacco Use Smoking status: Never Passive exposure: Past Smokeless tobacco: Never Vaping Use Vaping Use: Never used Substance and Sexual Activity Alcohol use: Yes Comment: 0-1 per month Drug use: No Sexual activity: Not on file Other Topics Concern Not on file Social History Narrative Not on file Social Determinants of Health Financial Resource Strain: Not on file Food Insecurity: No Food Insecurity (07/06/2023) Hunger Screening Food Insecurity - Worry: Never True Food Insecurity - Inability: Never True Transportation Needs: No Transportation Needs (07/06/2023) PRAPARE - Transportation Lack of Transportation (Medical): No Lack of Transportation (Non-Medical): No Physical Activity: Not on file Stress: Not on file Social Connections: Not on file Interpersonal Safety: Not At Risk (07/06/2023) Humiliation, Afraid, Rape, and Kick questionnaire Fear of Current or Ex-Partner: No Emotionally Abused: No Physically Abused: No Sexually Abused: No Housing Instability: Low Risk (07/06/2023) Housing Instability Housing Instability: No Review of Symptoms: Pertinent items are noted in HPI. Objective: BP (!) 122/95 Pulse 90 Resp 20 Ht 157.5 cm (5' 2.01 ) Wt 72.6 kg (160 lb) SpO2 100% BMI 29.26 kg/m ECO- Asymptomatic General appearance: alert, appears stated age and cooperative Head: Normocephalic, without obvious abnormality, atraumatic Ears: right TM slightly erythematous, left ear normal Lungs: clear to auscultation bilaterally Heart: regular rate and rhythm, S1, S2 normal, no murmur, click, rub or gallop Abdomen: soft, nontender, incisions c/d/I without evidence of infection Pelvic:deferred to next visit Extremities: extremities normal, atraumatic, no cyanosis or edema Pulses: 2+ and symmetric Skin: Skin color, texture, turgor normal. No rashes or lesions Lymph nodes: Cervical, supraclavicular, and axillary nodes normal. 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 We discussed the postop lifting and pelvic restrictions over the next several weeks. Remain off work until August 16. RTW note provided. RTC in 2-3 weeks for further post op care. Reviewed pathology which revealed benign endometriosis. Menopausal symptoms - discussed risks/benefits/alternatives to her menopausal symptoms considering recent history of severe endometriosis. Recommend waiting 6 months before initiating HRT considering the data associating immediate HRT with recurrent endometriosis. Re-evaluate with our team or benign director trial in 6 months. May consider transdermal estrogen, keeping in mind her isolated history of PEs. May also consider further symptom control with SSRI (currently on Cymbalta). Right otitis media: history of chronic ear infections. This currently does not look infected. Encouraged fluid, mucinex, claritin for symptom control. If symptoms not improved by weekend, may start augmentin which was prescribed today. *An evaluation and management service unrelated to the patient's post-op care was performed today (within the post operative period), therefore a modifier 24 was applied to this visit. *The patient has a documented plan of care to address pain. All questions were answered to the patient's satisfaction. She is agreeable to this plan of care. *This note was completed using a voice engineering manager system. Every effort was made to ensure accuracy. However, inadvertent computerized engineering manager errors may be present. .Total time spent was 26 minutes: Preparing to see the patient (e.g., review of tests) Performing a medically appropriate examination and/or evaluation Counseling and educating the patient/family/caregiver Ordering medications, tests, or procedures Documenting clinical information in the electronic or other health record Care coordination (not separately reported) Dayanara Carroll PA-C, RD, IF SEBASTIAN Wang 07/22/23 0933 documented in this encounter [facility] 07-13-2023 Miscellaneous Notes Patient called in with complaints of left hip pain and left thigh numbness. She is s/p naga bso, endometriosis resection, lysis of adhesions, soft tissue mass. She states she first noticed this on 3/5 after she was discharged. She rates her pain 4-5 with ambulation. She is taking tylenol and sparingly using oxy. Discussed with SEBASTIAN Wang. OK to take ibuprofen with eliquis. Alternate ice and heat to hip. OK to take home med of baclofen up to TID PRN. Patient demonstrates understanding, denies further questions. Post op appt scheduled for 07/21. documented in this encounter [facility] 07-13-2023 Telephone encounter Note Patient called in with complaints of left hip pain and left thigh numbness. She is s/p davinci bso, endometriosis resection, lysis of adhesions, soft tissue mass. She states she first noticed this on 3/5 after she was discharged. She rates her pain 4-5 with ambulation. She is taking tylenol and sparingly using oxy. Discussed with SEBASTIAN Wang. OK to take ibuprofen with eliquis. Alternate ice and heat to hip. OK to take home med of baclofen up to TID PRN. Patient demonstrates understanding, denies further questions. Post op appt scheduled for 07/21. [facility] 06-29-2023 Instructions Formatting of th is note might be different from the original. Your surgery/procedure is scheduled at [facility] on 07/06/2023 at 10 am Arrival Time 8 am [facility] Address: [address] [place] [address] in Parking lot located on [facility]. Report to the Entrance B. Check in at the information desk the surgery. The waiting room located on the second floor. If you have any questions prior to surgery, please call Pre-Admission Clinic at [phone] between 7:30 am and 4:30 pm Thursday through Thursday. If you have questions the morning of surgery, please call the Pre-op Department at [phone]. Notify your SURGEON if you develop any illness such as a cold, cough, fever, sore throat, vomiting or are hospitalized between now and your surgery. CONTINUE TO TAKE YOUR MEDICATIONS PRESCRIBED. DO NOT STOP YOUR PRESCRIBED MEDICATIONS UNLESS DIRECTED BY YOUR PRESCRIBING PHYSICIAN Take the following medications the morning of surgery with a sip of water: topamax, cymbalta, omeprazole, metoprolol, oxcarbazepine, phenergan-if needed Weight loss medications: N/A Take inhalers as prescribed the morning of surgery. . Blood thinners: Medications such as Coumadin, Heparin, Aspirin, Plavix, Eliquis, Pradaxa) Please contact your physician regarding a stop/hold date for these medications. Diabetics: If you take insulin, contact your prescribing doctor for instructions on how to manage this the night before and the morning of surgery. Non-steriodal Anti-Inflammatory Drugs (NSAIDS)- Stop 3 days prior to surgery unless otherwise directed by your surgeon. Vitamins/Herbal Products: You may continue to take your prescribed vitamins such as potassium, iron, vitamin B, vitamin C, or multivitamin unless specifically instructed by your surgeon to stop. STOP taking all herbal products/teas one week prior to your surgery. Marijuana: Stop marijuana 72 hours prior to surgery, stop CBD oil 48 hours prior to surgery. If you have been given bowel prep instructions by your surgeon, please call the surgeon's office with any questions about these instructions. What do I do the day of Surgery? Age 2 through adult - Stop all solids by midnight, You may have clear liquids up to 2 hours before surgery, unless otherwise instructed by your surgeon. Clear liquids are: water, sports drinks such as Gatorade or G2, or apple juice. You may NOT have: tube feedings, dairy products, alcoholic beverages, orange juice, or any liquids with solids or pulp in it. If applicable, shower again with CHG soap the morning of your surgery. If you received a green plastic bracelet, bring it with you the day of surgery and your nurse will put it on you. In order to help prevent infection post-operatively, you may be asked to use a CHG mouthwash when you arrive to the Pre-op area. Your nurse will provide instruction the morning of. What do I need to do to prepare for surgery? If you will be going home the same day as your surgery, arrange for an adult over [address] Riding in a bus or taxi by yourself is not permitted. You should not smoke or drink alcohol 24 hours before your surgery. Alcohol thins the blood and may cause bleeding problems during surgery. Smoking increases the risk of breathing problems after surgery. If you have been assigned IDA Education by your surgeon's office, please complete this education prior to your surgery. For questions regarding IDA education, reach out to your surgeon's office. If you have been given a prescription for occupational, physical or speech therapy, please set up these appointments before your procedure. If you would like to schedule therapy at a [facility] facility, please call [phone] ([phone]). Do not use lotions, creams, powders, perfume, make up, cologne or after-shaves day of surgery. Remove ALL jewelry including wedding rings, body piercings,hair extensions that contain metal, nail taiwanese, make-up, and contact lens. You may brush your teeth the morning of surgery, but do not swallow the water. Wear your dentures and partial plates to the hospital (no adhesive). Shower the night the before. If applicable, use the CHG (chlorhexidine gluconate) soap or wipes What should I bring to the hospital? If you received a green plastic bracelet, bring it with you the day of surgery and your nurse will put it on you. Eyeglass or contact lens case If you will be spending the night, please bring personal care items and leave them in the car until you are taken to your room after surgery. Leave ALL valuables at home. If any of these instructions conflict with those you received from the surgeon, please seek clarification from your surgeon's office. DEEP BREATHING EXERCISES This exercise helps promote good air exchange and helps to prevent pneumonia after surgery. Breathe in slowly and deeply through the nose. Hold your breath for a few seconds and then exhale slowly through the mouth. Repeat this three times and then cough.Coughing helps to clear your lungs. If you have had a surgery with an incision into your abdomen or chest, press gently against your incision with a pillow or a folded blanket when you cough. Please be aware - it may not be bowling to cough following some types of surgeries involving the eyes, ears, sinuses and throat. Always follow your doctor's instructions. LEG EXERCISE These exercises help promote good circulation and help to prevent blood clots after surgery. Point your toes to the ceiling and then point them to the wall. Do this slowly about 15-20 times. You may also move your feet in circles. Do the exercise that is most comfortable for you. If you have had surgery involving your shoulder or arm, we recommend you move your fingers. PRACTICING We ask that you begin practicing these exercises before your surgery. After surgery try to do both exercises at least every 2 hours during the day and early evening. SURGICAL SITE INFECTION PREVENTION What is a Surgical Site Infection? Infection can happen to the area of the body where surgery is done. This is called a surgical site infection (SSI). A SSI does not happen very often. Can SSIs be treated? Antibiotics are used to treat SSI. Some patients may need another surgery to treat the infection. The doctor will discuss treatment options with you. What are some of the things that hospitals are doing to prevent SSIs? Soap and water or alcohol hand rub are used before and after caring for each patient. Special soap is used to clean surgery workers hands and arms just before the surgery. Masks, gowns, gloves and hair covers are worn during the surgery to keep the area clean. Hair in the surgery area may be removed with clippers (not razors). A special soap that kills germs is used to clean the skin at the surgery site. Antibiotics may be given before the surgery starts. What can you do to prevent SSIs? Before surgery: You may be asked to shower or bathe with a special soap that kills germs the night before and the day of surgery. Use the soap as you were told. If you smoke, stop or cut down. Ask your doctor about ways to quit. Do not shave near where you will have surgery. Shaving can irritate the skin and make it easier to get and infection. After surgery: Be sure that the doctors and nurses clean their hands before and after touching you. Be sure your family and friends clean their hands before and after visiting you. Do not be afraid to remind them. * Care for your wound at home as told by your doctor or nurse * Call your doctor right away if you have fever, redness, increased pain, or drainage at the surgery site. Further questions? Contact the doctor, nurse or the Infection Prevention and Control department if you have any questions. PATIENT RIGHTS AND RESPONSIBILITIES As a patient at [facility], you have the right to: Receive medical care and be informed of who is taking care of you Be treated with dignity and respect Have a family member/abrasives sales representative of choice and your physician notified of your admission Receive information and actively participate in decisions about your care and treatment Refuse care, treatment and services Decide who may provide your support and speak for you Access adventism and spiritual services Participate in ethical issues and questions about your care Receive private and confidential care Have appropriate assessment and management of your pain Know guest visitation restrictions or limitations Have an advance directive Access protective services Consent or refuse to participate in research studies or production or recordings, films or other images Have resolution of your complaints Receive information of hospital charges and payment methods Patient/patient abrasives sales representative responsibilities are to: Provide information about health status to facilitate care, treatment and services Follow the treatment, plan, keep appointments and speak up when you do not understand the plan Respect the rights of other patients and healthcare personnel Follow organizational rules and regulations that support quality care and a safe environment Fulfill financial obligations as promptly as possible [facility] 06-29-2023 Miscellaneous Notes Your surgery/procedure is scheduled at [facility] on 07/06/2023 at 10 am Arrival Time 8 am [facility] Address: [address] [place] [address] Park in Parking lot located on [facility]. Report to the Entrance B. Check in at the information desk the surgery. The waiting room located on the second floor. If you have any questions prior to surgery, please call Pre-Admission Clinic at [phone] between 7:30 am and 4:30 pm Thursday through Thursday. If you have questions the morning of surgery, please call the Pre-op Department at [phone]. Notify your SURGEON if you develop any illness such as a cold, cough, fever, sore throat, vomiting or are hospitalized between now and your surgery. CONTINUE TO TAKE YOUR MEDICATIONS PRESCRIBED. DO NOT STOP YOUR PRESCRIBED MEDICATIONS UNLESS DIRECTED BY YOUR PRESCRIBING PHYSICIAN Take the following medications the morning of surgery with a sip of water: topamax, cymbalta, omeprazole, metoprolol, oxcarbazepine, phenergan-if needed Weight loss medications: N/A Take inhalers as prescribed the morning of surgery. . Blood thinners: Medications such as Coumadin, Heparin, Aspirin, Plavix, Eliquis, Pradaxa) Please contact your physician regarding a stop/hold date for these medications. Diabetics: If you take insulin, contact your prescribing doctor for instructions on how to manage this the night before and the morning of surgery. Non-steriodal Anti-Inflammatory Drugs (NSAIDS)- Stop 3 days prior to surgery unless otherwise directed by your surgeon. Vitamins/Herbal Products: You may continue to take your prescribed vitamins such as potassium, iron, vitamin B, vitamin C, or multivitamin unless specifically instructed by your surgeon to stop. STOP taking all herbal products/teas one week prior to your surgery. Marijuana: Stop marijuana 72 hours prior to surgery, stop CBD oil 48 hours prior to surgery. If you have been given bowel prep instructions by your surgeon, please call the surgeon's office with any questions about these instructions. What do I do the day of Surgery? Age 2 through adult - Stop all solids by midnight, You may have clear liquids up to 2 hours before surgery, unless otherwise instructed by your surgeon. Clear liquids are: water, sports drinks such as Gatorade or G2, or apple juice. You may NOT have: tube feedings, dairy products, alcoholic beverages, orange juice, or any liquids with solids or pulp in it. If applicable, shower again with CHG soap the morning of your surgery. If you received a green plastic bracelet, bring it with you the day of surgery and your nurse will put it on you. In order to help prevent infection post-operatively, you may be asked to use a CHG mouthwash when you arrive to the Pre-op area. Your nurse will provide instruction the morning of. What do I need to do to prepare for surgery? If you will be going home the same day as your surgery, arrange for an adult over [address] Riding in a bus or taxi by yourself is not permitted. You should not smoke or drink alcohol 24 hours before your surgery. Alcohol thins the blood and may cause bleeding problems during surgery. Smoking increases the risk of breathing problems after surgery. If you have been assigned IDA Education by your surgeon's office, please complete this education prior to your surgery. For questions regarding IDA education, reach out to your surgeon's office. If you have been given a prescription for occupational, physical or speech therapy, please set up these appointments before your procedure. If you would like to schedule therapy at a [facility] facility, please call [phone] ([phone]). Do not use lotions, creams, powders, perfume, make up, cologne or after-shaves day of surgery. Remove ALL jewelry including wedding rings, body piercings,hair extensions that contain metal, nail taiwanese, make-up, and contact lens. You may brush your teeth the morning of surgery, but do not swallow the water. Wear your dentures and partial plates to the hospital (no adhesive). Shower the night the before. If applicable, use the CHG (chlorhexidine gluconate) soap or wipes What should I bring to the hospital? If you received a green plastic bracelet, bring it with you the day of surgery and your nurse will put it on you. Eyeglass or contact lens case If you will be spending the night, please bring personal care items and leave them in the car until you are taken to your room after surgery. Leave ALL valuables at home. If any of these instructions conflict with those you received from the surgeon, please seek clarification from your surgeon's office. DEEP BREATHING EXERCISES This exercise helps promote good air exchange and helps to prevent pneumonia after surgery. Breathe in slowly and deeply through the nose. Hold your breath for a few seconds and then exhale slowly through the mouth. Repeat this three times and then cough.Coughing helps to clear your lungs. If you have had a surgery with an incision into your abdomen or chest, press gently against your incision with a pillow or a folded blanket when you cough. Please be aware - it may not be bowling to cough following some types of surgeries involving the eyes, ears, sinuses and throat. Always follow your doctor's instructions. LEG EXERCISE These exercises help promote good circulation and help to prevent blood clots after surgery. Point your toes to the ceiling and then point them to the wall. Do this slowly about 15-20 times. You may also move your feet in circles. Do the exercise that is most comfortable for you. If you have had surgery involving your shoulder or arm, we recommend you move your fingers. PRACTICING We ask that you begin practicing these exercises before your surgery. After surgery try to do both exercises at least every 2 hours during the day and early evening. SURGICAL SITE INFECTION PREVENTION What is a Surgical Site Infection? Infection can happen to the area of the body where surgery is done. This is called a surgical site infection (SSI). A SSI does not happen very often. Can SSIs be treated? Antibiotics are used to treat SSI. Some patients may need another surgery to treat the infection. The doctor will discuss treatment options with you. What are some of the things that hospitals are doing to prevent SSIs? Soap and water or alcohol hand rub are used before and after caring for each patient. Special soap is used to clean surgery workers hands and arms just before the surgery. Masks, gowns, gloves and hair covers are worn during the surgery to keep the area clean. Hair in the surgery area may be removed with clippers (not razors). A special soap that kills germs is used to clean the skin at the surgery site. Antibiotics may be given before the surgery starts. What can you do to prevent SSIs? Before surgery: You may be asked to shower or bathe with a special soap that kills germs the night before and the day of surgery. Use the soap as you were told. If you smoke, stop or cut down. Ask your doctor about ways to quit. Do not shave near where you will have surgery. Shaving can irritate the skin and make it easier to get and infection. After surgery: Be sure that the doctors and nurses clean their hands before and after touching you. Be sure your family and friends clean their hands before and after visiting you. Do not be afraid to remind them. * Care for your wound at home as told by your doctor or nurse * Call your doctor right away if you have fever, redness, increased pain, or drainage at the surgery site. Further questions? Contact the doctor, nurse or the Infection Prevention and Control department if you have any questions. PATIENT RIGHTS AND RESPONSIBILITIES As a patient at [facility], you have the right to: Receive medical care and be informed of who is taking care of you Be treated with dignity and respect Have a family member/abrasives sales representative of choice and your physician notified of your admission Receive information and actively participate in decisions about your care and treatment Refuse care, treatment and services Decide who may provide your support and speak for you Access adventism and spiritual services Participate in ethical issues and questions about your care Receive private and confidential care Have appropriate assessment and management of your pain Know guest visitation restrictions or limitations Have an advance directive Access protective services Consent or refuse to participate in research studies or production or recordings, films or other images Have resolution of your complaints Receive information of hospital charges and payment methods Patient/patient abrasives sales representative responsibilities are to: Provide information about health status to facilitate care, treatment and services Follow the treatment, plan, keep appointments and speak up when you do not understand the plan Respect the rights of other patients and healthcare personnel Follow organizational rules and regulations that support quality care and a safe environment Fulfill financial obligations as promptly as possible documented in this encounter [facility] 06-17-2023 History of Presen t illness Narrative Subjective: Gissel is a 38 y.o. female here for consultation from for evaluation and management of endometriosis, pelvic pain, cutaneous endometriosis. This nice patient has a history of a section in 2011 along with hysterectomy performed abdominally in 2014, she is retained ovaries and over the last 6 months has noted worsening cyclic pain in her prior Pfannenstiel incision, she also notes pain in bilateral lower quadrants. She has no personal or family history of GI or rn gyn malignancies. We reviewed her imaging as well as her clinical an medical history today strongly suspect that she has endometriosis in her cutaneous scar, we discussed surgical excision. We reviewed her MRI in detail today and I discussed the case with by phone. Oncology History No overview note Gissel : Denies Early satiety Reports Abdominal distention Denies Leg swelling Denies Shortness of breath Denies Vaginal bleeding Denies Change in bowel habits Denies Change in bladder habits Denies Nausea and vomiting All other systems negative, unless specifically noted in HPI. Past Gynecologic History: OB History No obstetric history on file. No LMP recorded. Patient has had a hysterectomy. Hormonal Contraceptives No HRT use No History of abnormal pap No Past Surgical History: Procedure Laterality Date SECTION COLONOSCOPY ENDOMETRIAL ABLATION HYSTERECTOMY LITHOTRIPSY TONSILLECTOMY Past Medical History: Diagnosis Date Anxiety Depression GERD (gastroesophageal reflux disease) Hypertension Kidney stones Sciatica Family History Problem Relation Age of Onset Lung cancer Maternal Grandmother Pancreatic cancer Maternal great-grandmother Social History Tobacco Use Smoking status: Never Smokeless tobacco: Never Substance Use Topics Alcohol use: Yes Comment: socially Review of Symptoms: Pertinent items are noted in HPI. Objective: BP 128/84 Pulse 95 Temp 37 C (98.6 F) (Skin) Ht 157.5 cm (5' 2.01 ) Wt 72.7 kg (160 lb 3.2 oz) SpO2 90% BMI 29.29 kg/m ECO- Asymptomatic General appearance: alert, appears stated age and cooperative Head: Normocephalic, without obvious abnormality, atraumatic Ears: normal TM's and external ear canals both ears Neck: no adenopathy, no carotid bruit, no JVD, supple, symmetrical, trachea midline and thyroid not enlarged, symmetric, no tenderness/mass/nodules Lungs: clear to auscultation bilaterally Breasts: normal appearance, no masses or tenderness Heart: regular rate and rhythm, S1, S2 normal, no murmur, click, rub or gallop Abdomen: abnormal findings: Soft, bulge noted at the level of the prior Pfannenstiel incision, this is tender to light and deep palpation, there is no rebound or guarding. Pelvic: Uterus and cervix are surgically absent, bilateral ovarian fossa discomfort on examination Extremities: extremities normal, atraumatic, no cyanosis or edema Pulses: 2+ and symmetric Skin: Skin color, texture, turgor normal. No rashes or lesions Lymph nodes: Cervical, supraclavicular, and axillary nodes normal. Neurologic: Grossly normal Labs: Lab Results Component Value Date WBC 11.8 (H) 03/22/2016 HGB 14.3 03/22/2016 HCT 43.8 03/22/2016 MCH 27.6 03/22/2016 MCHC 32.7 03/22/2016 PLT 335 03/22/2016 MPV 6.9 (L) 03/22/2016 RDW 13.9 03/22/2016 Lab Results Component Value Date BUN 9 03/22/2016 K 3.8 03/22/2016 CL 106 03/22/2016 ALBUMIN 3.8 03/22/2016 AST 20 03/22/2016 AST 28 10/15/2015 No results found for: GGT No results found for: LDH No results found for: MG No results found for: PHOS No results found for: URIC Assessment: Patient is diagnosed with Patient Active Problem List Diagnosis Major depressive disorder, recurrent episode, moderate (CMS-HCC) Generalized anxiety disorder 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 The patient has a documented plan of care to address pain. 2. Endometriosis-the patient has bilateral endometriomas as well as an endometrioma in her posterior rectus sheath along her previous scar, plan for minimally invasive BSO with excision of her abdominal wall endometriosis and repair. Consent signed in the office today. 3. Return to clinic postoperatively. 4. Total time spent was 47 minutes: Preparing to see the patient (e.g., review of tests) Obtaining and/or reviewing separately obtained history Performing a medically appropriate examination and/or evaluation Counseling and educating the patient/family/caregiver Ordering medications, tests, or procedures Referring and communicating with other health urgent care physician assistant (not separately reported) Documenting clinical information in the electronic or other health record Luís Andres MD [facility] History of Presen t illness Narrative Associated Problem(s): Sinus tachycardia Symptoms stable with toprol and continue. 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 Associated Problem(s): Benign essential hypertension (CMS/HCC) BP remains low and stop zestoretic. Start lisinopril daily and monitor BP. Subjective Patient ID: Gissel Del Rosario is a 37 y.o. female who presents for Follow-up (1m). Follow up HTN, tachycardia, and abdominal mass. Patient continues to have abdominal pain. 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 Continues to have pain with activity. Severe nausea. Decreased zestoretic last visit and BP remains low. At times lightheaded when up and moving. Monitoring BP and low. BP 100/60 today. Tachycardia improved with toprol. Not having as much heart racing and no palpitations. Holter showed sinus tach. Review of Systems Respiratory: Negative for cough, shortness of breath and wheezing. Cardiovascular: Negative for chest pain and palpitations. Gastrointestinal: Negative for abdominal pain, diarrhea, nausea and vomiting. Genitourinary: Negative for dysuria. Objective Physical Exam Constitutional: General: She is not in acute distress. Appearance: Normal appearance. HENT: Head: Normocephalic. Right Ear: Tympanic membrane normal. Left Ear: Tympanic membrane normal. Eyes: Extraocular Movements: Extraocular movements intact. Pupils: Pupils are equal, round, and reactive to light. Cardiovascular: Rate and Rhythm: Normal rate and regular rhythm. Heart sounds: No murmur heard. No friction rub. No gallop. Pulmonary: Effort: Pulmonary effort is normal. Breath sounds: Normal breath sounds. No wheezing, rhonchi or rales. Abdominal: General: Bowel sounds are normal. There is no distension. Palpations: Abdomen is soft. Tenderness: There is no abdominal tenderness. There is no guarding or rebound. Musculoskeletal: Cervical back: Neck supple. Right lower leg: No edema. Left lower leg: No edema. Neurological: Mental Status: She is alert. Assessment/Plan Problem List Items Addressed This Visit Benign essential hypertension (CMS/HCC) - Primary BP remains low and stop zestoretic. Start lisinopril daily and monitor BP. Relevant Medications lisinopril 10 MG tablet Sinus tachycardia Symptoms stable with toprol and continue. 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 documented in this encounter [facility] 06-03-2023 History of Presen t illness Narrative Subjective: Gissel is a 37 y.o. female here for consultation from for evaluation and management of endometriosis, pelvic pain, cutaneous endometriosis. This nice patient has a history of a section in 2011 along with hysterectomy performed abdominally in 2015, she is retained ovaries and over the last 6 months has noted worsening cyclic pain in her prior Pfannenstiel incision, she also notes pain in bilateral lower quadrants. She has no personal or family history of GI or rn gyn malignancies. We reviewed her imaging as well as her clinical an medical history today strongly suspect that she has endometriosis in her cutaneous scar, we discussed surgical excision with possible abdominal wall reconstruction as well as removal of the ovaries. We will proceed with MRI for surgical planning. Oncology History No overview note Gissel : Denies Early satiety Reports Abdominal distention Denies Leg swelling Denies Shortness of breath Denies Vaginal bleeding Denies Change in bowel habits Denies Change in bladder habits Denies Nausea and vomiting All other systems negative, unless specifically noted in HPI. Past Gynecologic History: OB History No obstetric history on file. No LMP recorded. Patient has had a hysterectomy. Hormonal Contraceptives No HRT use No History of abnormal pap No Past Surgical History: Procedure Laterality Date SECTION COLONOSCOPY ENDOMETRIAL ABLATION HYSTERECTOMY LITHOTRIPSY TONSILLECTOMY Past Medical History: Diagnosis Date Anxiety Depression GERD (gastroesophageal reflux disease) Hypertension Kidney stones Sciatica Family History Problem Relation Age of Onset Lung cancer Maternal Grandmother Pancreatic cancer Maternal great-grandmother Social History Tobacco Use Smoking status: Never Smokeless tobacco: Never Substance Use Topics Alcohol use: Yes Comment: socially Review of Symptoms: Pertinent items are noted in HPI. Objective: BP 106/64 Ht 157.5 cm (5' 2.01 ) Wt 72.6 kg (160 lb) BMI 29.26 kg/m ECO- Asymptomatic General appearance: alert, appears stated age and cooperative Head: Normocephalic, without obvious abnormality, atraumatic Ears: normal TM's and external ear canals both ears Neck: no adenopathy, no carotid bruit, no JVD, supple, symmetrical, trachea midline and thyroid not enlarged, symmetric, no tenderness/mass/nodules Lungs: clear to auscultation bilaterally Breasts: normal appearance, no masses or tenderness Heart: regular rate and rhythm, S1, S2 normal, no murmur, click, rub or gallop Abdomen: abnormal findings: Soft, bulge noted at the level of the prior Pfannenstiel incision, this is tender to light and deep palpation, there was no rebound or guarding. Pelvic: Uterus and cervix are surgically absent, bilateral ovarian fossa discomfort on examination Extremities: extremities normal, atraumatic, no cyanosis or edema Pulses: 2+ and symmetric Skin: Skin color, texture, turgor normal. No rashes or lesions Lymph nodes: Cervical, supraclavicular, and axillary nodes normal. Neurologic: Grossly normal Labs: Lab Results Component Value Date WBC 11.8 (H) 03/22/2016 HGB 14.3 03/22/2016 HCT 43.8 03/22/2016 MCH 27.6 03/22/2016 MCHC 32.7 03/22/2016 PLT 335 03/22/2016 MPV 6.9 (L) 03/22/2016 RDW 13.9 03/22/2016 Lab Results Component Value Date BUN 9 03/22/2016 K 3.8 03/22/2016 CL 106 03/22/2016 ALBUMIN 3.8 03/22/2016 AST 20 03/22/2016 AST 28 10/15/2015 No results found for: GGT No results found for: LDH No results found for: MG No results found for: PHOS No results found for: URIC Assessment: Patient is diagnosed with Patient Active Problem List Diagnosis Major depressive disorder, recurrent episode, moderate (CMS-HCC) Generalized anxiety disorder 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 The patient has a documented plan of care to address pain. 2. Cutaneous endometriosis in her prior Pfannenstiel scar, bilateral pelvic pain-plan for minimally invasive oophorectomy with excision of her scar with possible abdominal wall reconstruction, we will obtain MRI for surgical planning. 3. Return to clinic following MRI. 4. Total time spent was 63 minutes: Preparing to see the patient (e.g., review of tests) Obtaining and/or reviewing separately obtained history Performing a medically appropriate examination and/or evaluation Counseling and educating the patient/family/caregiver Ordering medications, tests, or procedures Referring and communicating with other health urgent care physician assistant (not separately reported) Documenting clinical information in the electronic or other health record Luís Andres MD documented in this encounter [facility] 05-20-2023 Miscellaneous Notes Left VM to schedule MECHANICAL SERVICE TECHNICIAN appointment with rn gyn onc. Requested US and CT images be pushed via PACS from [employer]. documented in this encounter [facility] 05-20-2023 Telephone encounter Note Left VM to schedule MECHANICAL SERVICE TECHNICIAN appointment with rn gyn onc. Requested US and CT images be pushed via PACS from [employer]. [facility] History of Presen t illness Narrative History Of Present Illness Patient [...] was negative but is to see a supervisor assembly and packing to further work this up as well. Jeremy Jang MD documented in this encounter [facility] Work Phone: 03-24-2023 History of Presen t illness Narrative History and Physical Referring Provider: Compa Valenzuela DO Marc Anthony Naderer, MD Chief [...] Date SECTION, CLASSIC 2012 HYSTERECTOMY 04/16/2015 TONSILLECTOMY 2015 No Known Allergies Review of Systems: A [...] hernia specialists. --I will discuss with her director trial the value of abdominal exploration for additional [...] MPH @TIMECUR@ @DATECUR@ documented in this encounter [facility] Work Phone: 09-05-2022 Evaluation note Encounter Date Diagnosis Assessment [...] understanding and is agreeable with treatment plan. [facility] Other [id number] NotePROCEDURE: XR PELVIS W_OBL MIN 3 VIEWS COMPARISON: HISTORY: Disorder of sacrum FINDINGS: BONES:No fracture, acute abnormality, or significant arthropathy. SOFT TISSUES:Negative. No visible soft tissue swelling. EFFUSION:None visible. OTHER: Negative. IMPRESSION: No acute abnormality Electronically authenticated by: ASHLEY CARRANZA Date: 2021-09-28 07:58[facility]05-28-2022 NotePROCEDURE: XR TIB_FIB LT 2V COMPARISON: 07/17/2020 HISTORY: Pain in left leg FINDINGS: BONES:No acute fracture or dislocation. Stable sclerosis along the distal tibia. Enthesopathic spurring plantar calcaneus SOFT TISSUES:Negative. No visible soft tissue swelling. EFFUSION:None visible. OTHER: Negative. IMPRESSION: Stable exam, no interval change Electronically authenticated by: ASHLEY CARRANZA Date: 2021-09-28 07:56[facility]* Diagnosis Endometrioma- Primary Endometriosis, site unspecified documented in this encounter [facility] Work Phone: Evaluation note* Diagnosis Endometrioma Endometriosis, site unspecified documented in this encounter [facility] Work Phone: Evaluation note* Diagnosis Pelvic mass- Primary Abdominal or pelvic swelling, mass or lump, unspecified site Endometriosis Endometriosis, site unspecified 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 Endometriosis in scar of skin Pelvic pain [facility] Diagnosis Benign essential hypertension (CMS/HCC)- Primary Essential hypertension, benign Sinus tachycardia Other specified cardiac dysrhythmias 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 Endometriosis in scar of skin [facility]* Diagnosis Pelvic mass- Primary Abdominal or pelvic swelling, mass or lump, unspecified site [facility] Diagnosis Preop testing- Primary Unspecified pre-operative examination [facility]* Diagnosis Encounter for postoperative care- Primary Menopausal symptoms Symptomatic menopausal or female climacteric states Acute serous otitis media, recurrence not specified, unspecified laterality documented [facility] this [facility]* Diagnosis Muscle spasms of both lower extremities- Primary [facility] Diagnosis Abdominal wall mass- Primary Abdominal or pelvic swelling, mass or lump, unspecified site [facility]* Diagnosis Encounter for postoperative care- Primary Menopausal symptoms Symptomatic menopausal or female climacteric states [facility] Narrative - Reported* Type Description Date Medical History HTN (hypertension) Medical History Anxiety and depression Medical History migraine headache Medical History seasonal allergies Surgical History essure Surgical History EGD Surgical History C section Surgical History hysterectomy 2015 Hospitalization History PE Hospitalization History child x3 Hospitalization History demise x1 [facility] Other InstructionsNot on filedocumented in this encounter [facility] filedocumented in this encounter [facility] filedocumented in this encounter [facility] filedocumented in this encounter [facility] filedocumented in this encounter [facility] filedocumented in this encounter [facility] filedocumented in this [facility] on filedocumented in this encounter [facility] on filedocumented in this encounter [facility]ructionsNot on filedocumented in this [facility] Consultation (Routine) - Pending Review Specialty Diagnoses / Procedures Referred By Frankie t Referred To Contact General Surgery Diagnoses Pelvic mass Luís Andres MD [address] [place] [address], [address] [place] [address] [place] [address] [place] [address], [address] [place] [address] Referral ID Status Reason Start Date Expiration Date Visits Requested Visits Authorized [id number] Pending Review Specialty Services Required 06/17/2023 06/16/2024 1 1 [facility] Summary Purpose Family History No Family History Records FoundNo Family History Records FoundNo Family History Records FoundNo Family History Records FoundNo Family History Records FoundNo Family History Records FoundNo Family History Records FoundNo Family History Records Found Advance Directives No Advanced Directives Records FoundLatest Code Status on File Code Status Date Activated Date Inactivated Comments Full Code 07/06/2023 3:39 PM 07/07/2023 1:17 PM Reason for Referral Specialty Diagnoses / Procedures Referred By Frankie salmon Referred To Contact Radiology Diagnoses Pelvic mass Endometriosis Procedures MR pelvis without contrast Luís Andres MD [address] [place] [address], [address] [place] [address] Referral ID Status Reason Start Date Expiration Date V isits Requested Visits Authorized [id number] Pending Review 06/03/2023 06/02/2024 1 1 Additional Source Comments INFORMATION SOURCE (unrecogn ized section and content) DATE CREATED AUTHOR 05/01/2022 [facility] DATE CREATED AUTHOR AUTHOR'S ORGANIZ ATION 08/10/2022 [facility] DATE CREATED AUTHOR AUTHOR'S ORGANIZ ATION 03/26/2023 [facility] DATE CREATED AUTHOR AUTHOR'S ORGANIZ ATION 05/24/2023 [facility] DATE CREATED AUTHOR AUTHOR'S ORGANIZ ATION 06/13/2023 [facility] DATE CREATED AUTHOR AUTHOR'S ORGANIZ ATION 06/18/2023 [facility] DATE CREATED AUTHOR AUTHOR'S ORGANIZ ATION 07/11/2023 [facility] DATE CREATED AUTHOR AUTHOR'S ORGANIZ ATION 09/27/2023 [facility] REASON FOR VISIT (unrecogniz ed section and content) Reason Comments New Patient Visit Reason Comments Endometriosis Specialty Diagnoses / Procedures Referred By Contchacorta t Referred To Contact General Surgery Diagnoses Endometrioma Vu Juarez MD [facility] [address] [facility] Department of Surgery-Surgical Oncology [place] [phone] [place] [address] [facility]-[place] [id number] Referral ID Status Reason Start Date Expiration Date Visits Requested Visits Authorized [id number] Authorized Specialty Services Required 3 03/30/2024 1 1 Reason Comments New Patient Pt states she has en dometriosis.Dr Taylor states he had hyst with ovaries retainedPt states she has severe pelvic pain. Pain has increased since August last yearPt states she has decreased appetite. Reason Comments Follow-up 1m Reason Comments Follow-up Reason Comments Post-op 1st po mass resectio n abd wall Care Teams (unrecognized sec tion and content) Secondary Teacher Relationship Specialty Start Date End Date Joseph Sotelo MD PCP - General Family Medicine 03/18/23 Secondary Teacher Relationship Specialty Start Date End Date Joseph Sotelo MD [address] [place] [address] PCP - General Family Medicine 04/02/23 Secondary Teacher Relationship Specialty Start Date End Date Joseph Sotelo MD [address] [place] [address] PCP - General 01/29/17 Secondary Teacher Relationship Specialty Start Date End Date Joseph Sotelo MD [address] [place] [place] [address] PCP - General 01/29/17 Secondary Teacher Relationship Specialty Start Date End Date Joseph Sotelo MD PCP - General Cardiology 10/15/22 Secondary Teacher Relationship Specialty Start Date End Date Joseph Sotelo MD PCP - General Cardiology 10/15/22 Secondary Teacher Relationship Specialty Start Date End Date Joseph Sotelo MD [address] [place] [address] PCP - General 01/29/17 Secondary Teacher Relationship Specialty Start Date End Date Joseph Sotelo MD [address] [place] [address] PCP - General 01/29/17 Secondary Teacher Relationship Specialty Start Date End Date Joseph Sotelo MD [address] [place] [address] PCP - General 01/29/17 Secondary Teacher Relationship Specialty Start Date End Date Joseph Sotelo MD [address] [place] [address] PCP - General 01/29/17 Secondary Teacher Relationship Specialty Start Date End Date Joseph Sotelo MD [address] [place] [address] PCP - General 01/29/17 Secondary Teacher Relationship Specialty Start Date End Date Joseph Sotelo MD [address] [place] [address] PCP General 01/29/17 Secondary Teacher Relationship Specialty Start Date End Date Joseph Sotelo MD [address] [place] [address] PCP [facility] 01/29/17 Secondary Teacher Relationship Specialty Start Date End Date Joseph Sotelo MD [address] [place] [address] [facility] 01/29/17 Secondary Teacher Relationship Specialty Start Date End Date Joseph Sotelo MD [address] [place] [address] [facility] 01/29/17 FOR RECORDS PERTAINING TO PATIENTS WHO ARE [...] BE BASED ON THE PRIMARY CLINICAL RECORDS. [facility] [employer] [facility]. provides no warranty or guarantee of the accuracy or completeness of information in this document.
--- NOTE | 2023-12-21 00:50 | ED_ITS ---
HPI - Abdominal Pain General Chief Complaint: Abdominal Pain Stated Complaint: ABD PAIN Time Seen by Provider: 12/21/23 00:39 Source: patient Mode of arrival: walk-in Limitations: no limitations History of Present Illness HPI narrative: 38-year-old female presents for abdominal pain. She has had this for 3 days and its all across her lower abdomen. She thought she was constipated but took a laxative and enemas and had bowel movements. No trauma or fever. No dysuria or hematuria. She has had a hysterectomy. The pain is severe and continuous and worse if she does not flex her hips. Related Data Home Medications ?Medication ?Instructions ?Recorded ?Confirmed atenolol 25 mg tablet 25 mg PO DAILY 02/24/23 12/21/23 cholecalciferol (vitamin D3) 50 2,000 unit PO DAILY 02/24/23 02/27/23 mcg (2,000 unit) tablet duloxetine 60 mg capsule,delayed 60 mg PO DAILY 02/24/23 02/27/23 release omeprazole 40 mg capsule,delayed 40 mg PO DAILY 02/24/23 02/27/23 release ondansetron 4 mg disintegrating 4 mg translingual Q6H PRN nausea 02/24/23 02/27/23 tablet and vomiting oxcarbazepine 300 mg tablet 300 mg PO DAILY 02/24/23 12/21/23 semaglutide 0.25 mg or 0.5 mg (2 0.25 mg subcut QWEEK 02/24/23 02/27/23 mg/3 mL) subcutaneous pen injector (Ozempic) topiramate 50 mg tablet 50 mg PO DAILY 02/24/23 12/21/23 lisinopril-hydrochlorothiazide .ROUTE 04/05/23 lisinopril 10 mg tablet 10 mg PO DAILY 12/21/23 12/21/23 omeprazole 20 mg capsule,delayed 20 mg PO DAILY 12/21/23 12/21/23 release Previous Rx's ?Medication ?Instructions ?Recorded hydrocodone 5 mg-acetaminophen 325 1 tab PO Q6H PRN pain #14 tabs 02/24/23 mg tablet ketorolac 10 mg tablet 10 mg PO Q8H PRN pain #14 tabs 02/24/23 ondansetron 4 mg disintegrating 4 mg PO Q6H PRN nausea and 02/24/23 tablet vomiting #14 tabs tamsulosin 0.4 mg capsule (Flomax) 0.4 mg PO DAILY #10 caps 02/24/23 ondansetron HCl 4 mg tablet 4 mg PO Q6H PRN nausea and 04/05/23 vomiting #12 tabs potassium chloride 20 mEq oral 40 meq PO DAILY 3 days #6 ea 04/05/23 packet cephalexin 500 mg capsule 500 mg PO TID 7 days #21 caps 12/21/23 hydrocodone 5 mg-acetaminophen 325 1 tab PO Q6H PRN pain 5 days #20 12/21/23 mg tablet tabs ondansetron 4 mg disintegrating 4 mg PO Q6H PRN nausea and 12/21/23 tablet vomiting #20 tabs tamsulosin 0.4 mg capsule (Flomax) 0.4 mg PO DAILY #7 caps 12/21/23 Allergies Allergy/AdvReac Type Severity Reaction Status Date / Time No Known Drug Allergies Allergy Verified 12/21/23 00:40 Review of Systems ROS Narrative A ten point review of systems is negative except as noted above. [facility] Medical History (Updated 12/21/23 @ 04:51 by Bam Jean-Baptiste MD) Migraines ?G43.909 - Migraine, unspecified, not intractable, without status migrainosus (ICD-10) Depression ?F32.A - Depression, unspecified (ICD-10) HTN (hypertension) ?I10 - Essential (primary) hypertension (ICD-10) DVT (deep venous thrombosis) ?I82.409 - Acute embolism and thrombosis of unspecified deep veins of unspecified lower extremity (ICD-10) IBS (irritable bowel syndrome) ?K58.9 - Irritable bowel syndrome without diarrhea (ICD-10) Renal lithiasis ?N20.0 - Calculus of kidney (ICD-10) Abdominal wall mass of left lower quadrant ?R19.04 - Left lower quadrant abdominal swelling, mass and lump (ICD-10) Surgical History (Updated 02/27/23 @ 13:55 by Alecia Fine) H/O ultrasound guided needle biopsy ?Z98.890 - Other specified postprocedural states (ICD-10) H/O colonoscopy ?Z98.890 - Other specified postprocedural states (ICD-10) History of esophagogastroduodenoscopy (EGD) ?Z98.890 - Other specified postprocedural states (ICD-10) History of endometrial ablation ?Z98.890 - Other specified postprocedural states (ICD-10) History of tonsillectomy ?Z90.89 - Acquired absence of other organs (ICD-10) History of hysterectomy ?Z90.710 - Acquired absence of both cervix and uterus (ICD-10) Social History Smoking status: Never smoker Exam Narrative Exam Narrative: Nurses note and vital signs reviewed and patient is not hypoxic. General: The patient appears uncomfortable. Her knees and hips are fully flexed. Skin: Warm, dry, no pallor noted. There is no rash noted. Head: Normocephalic, atraumatic Eye: Normal conjunctiva, no drainage Ears, Nose, Mouth, and Throat: oral mucosa is moist. Nares patent. Cardiovascular: Regular Rate and Rhythm Respiratory: Patient is in no distress, no accessory muscle use, lungs are clear to auscultation, no wheezing, rales or rhonchi Back: non-tender, no CVA tenderness bilaterally to percussion. GI: Tenderness present across the lower abdomen without mass or distention Musculoskeletal: The patient has no evidence of calf tenderness, no pitting edema, symmetrical pulses noted bilaterally Neurological: A&O, normal speech Psychiatric: Cooperative Constitutional Vital Signs, click to edit/add: Last Vital Signs Temp 97.6 F 12/21/23 00:40 Pulse 80 12/21/23 02:01 Resp 18 12/21/23 02:01 BP 126/85 12/21/23 02:01 Pulse Ox 100 12/21/23 02:01 O2 Del Method Room Air 12/21/23 00:40 Course Vital Signs Vital signs: Vital Signs Temperature 97.6 F 12/21/23 00:40 Pulse Rate 92 H 12/21/23 00:40 Respiratory Rate 20 12/21/23 00:40 Blood Pressure 139/92 H 12/21/23 00:40 Pulse Oximetry 100 12/21/23 00:40 Oxygen Delivery Method Room Air 12/21/23 00:40 Temperature 97.6 F 12/21/23 00:40 Pulse Rate 80 12/21/23 02:01 Respiratory Rate 18 12/21/23 02:01 Blood Pressure 126/85 12/21/23 02:01 Pulse Oximetry 100 12/21/23 02:01 Oxygen Delivery Method Room Air 12/21/23 00:40 MDM - Abdominal Pain MDM Narrative Medical decision making narrative: The was found to be constipated. Additionally she has a stone in her left ureter that was previously there, earlier this year. Now however she has hydronephrosis. She was instructed to take MiraLAX and was prescribed hydrocodone, Flomax, Keflex, and Zofran. She has a preferred urologist and she will follow-up with them. Treatment diagnosis and follow-up were discussed with the patient. Differential Diagnosis Differential diagnosis: Likely abdominal pain, acute appendicitis, calculus of kidney, constipation, diverticulitis, gastroenteritis and pancreatitis Lab Data Attestation: I reviewed the patient's lab results. Labs: Lab Results 12/21/23 12/21/23 Range/Units 00:45 01:15 WBC 12.8 H (4.0-11.0) 10^3/uL RBC 4.84 (4.20-5.40) 10^6/uL Hgb 13.9 (12.0-16.0) g/dL Hct 42.4 (36.0-48.0) % MCV 87.6 (81.0-99.0) fL MCH 28.7 (26.7-34.0) pg MCHC 32.8 (29.9-35.2) g/dL RDW 12.6 (11.0-15.0) % Plt Count 304 (150-450) 10^3/uL MPV 8.4 L (9.5-13.5) fL Neut % (Auto) 51.8 (43.0-75.0) % Lymph % (Auto) 36.0 (20.5-60.0) % Sandoval % (Auto) 9.4 (1.7-12.0) % Eos % (Auto) 1.9 (0.9-7.0) % Baso % (Auto) 0.6 (0.2-2.0) % Neut # (Auto) 6.6 H (1.4-6.5) 10^3/uL Lymph # (Auto) 4.6 H (1.2-3.8) 10^3/uL Sandoval # (Auto) 1.2 H (0.3-0.8) 10^3/uL Eos # (Auto) 0.2 (0.0-0.7) 10^3/uL Baso # (Auto) 0.1 (0.0-0.1) 10^3/uL Abs Immat Gran (auto) 0.04 H (0.00-0.03) 10^3/uL Imm/Tot Granulo (auto) 0.3 (0.0-0.5) % Sodium 138 (136-145) mmol/L Potassium 3.5 (3.5-5.1) mmol/L Chloride 104 (98-107) mmol/L Carbon Dioxide 28.2 (21.0-32.0) mmol/L Anion Gap 9.3 BUN 14.0 (7.0-18.0) mg/dL Creatinine 1.32 H (0.55-1.02) mg/dL Est GFR ( Amer) 55 L (>=60) Est GFR (Non-Af Amer) 45 L (>=60) BUN/Creatinine Ratio 10.6 Glucose 95 (74-106) mg/dL Calcium 8.5 (8.5-10.1) mg/dL Total Bilirubin 0.4 (0.2-1.0) mg/dL Direct Bilirubin 0.1 (0.0-0.2) mg/dL AST 14 L (15-37) U/L ALT 18 (14-59) U/L Alkaline Phosphatase 138 H (46-116) U/L Total Protein 6.4 (6.4-8.2) g/dL Albumin 3.4 (3.4-5.0) g/dL Globulin 3.0 g/dL Albumin/Globulin Ratio 1.1 Amylase 39 (25-115) U/L Lipase 53.0 (16.0-77.0) U/L Urine Color Yellow (YELLOW) Urine Clarity Clear (CLEAR) Urine pH 6.0 (5.0-9.0) Ur Specific Kiln >=1.030 A (1.005-1.025) Urine Protein Negative (NEG/TRACE) mg/dL Urine Glucose (UA) Negative (NEGATIVE) mg/dL Urine Ketones Negative (NEGATIVE) mg/dL Urine Occult Blood Small A (NEGATIVE) Urine Nitrite Negative (NEGATIVE) Urine Bilirubin Negative (NEGATIVE) Urine Urobilinogen 0.2 (0.2-1.0) EU/dL Ur Leukocyte Esterase Negative (NEGATIVE) Urine RBC 5-10 A (0-2) #/HPF Urine WBC 2-5 A (NONE SEEN) #/HPF Ur Squamous Epith Cells Few A (NONE/RARE) #/LPF Urine Crystals None seen (None Seen) #/HPF Urine Bacteria None seen (NONE SEEN) #/HPF Urine Casts None seen (NONE SEEN) #/LPF Urine Mucus None seen (NONE SEEN) Ur Culture Indicated? No Imaging Data CT scan - abdomen: Radiologist's impression: ITS Impressions Abdomen X-Ray 12/21/23 00:50 IMPRESSION: 1. Prominent amount of stool in the colon without evidence of bowel obstruction. 2. Suspected left renal calculi. Electronically authenticated by: Brandan TURCIOS Date: 12/21/2023 03:44 Abdomen/Pelvis CT 12/21/23 01:36 IMPRESSION: 1. Mild to moderate left hydronephrosis which is new since prior study. Within or adjacent the mid left ureter is a 6 mm stone which was present on the 02/24/2023 study, but at that time with new compared to 08/05/2022. Suspect chronic mid ureteral stone which is now obstructing or partially obstructing. 2. No acute bowel abnormality. Electronically authenticated by: BRIAN SINGER Date: 12/21/2023 04:23 Discharge Plan Discharge Stand Alone Forms: Portal Instructions Chief Complaint: Abdominal Pain Clinical Impression: Kidney stone, Constipation, Hydronephrosis Patient Disposition: Home, Self-Care Time of Disposition Decision: 04:51 Condition: Good Mode of Transportation: Private Vehicle Prescriptions / Home Meds: New tamsulosin [Flomax] 0.4 mg capsule 0.4 mg PO DAILY Qty: 7 0RF hydrocodone-acetaminophen 5-325 mg tablet 1 tab PO Q6H PRN (Reason: pain) 5 Days Qty: 20 0RF cephalexin 500 mg capsule 500 mg PO TID 7 Days Qty: 21 0RF ondansetron 4 mg tablet,disintegrating 4 mg PO Q6H PRN (Reason: nausea and vomiting) Qty: 20 0RF No Action lisinopril-hydrochlorothiazide .ROUTE ondansetron HCl 4 mg tablet 4 mg PO Q6H PRN (Reason: nausea and vomiting) Qty: 12 0RF potassium chloride 20 mEq packet 40 meq PO DAILY 3 Days Qty: 6 0RF lisinopril 10 mg tablet 10 mg PO DAILY omeprazole 20 mg capsule,delayed release(DR/EC) 20 mg PO DAILY atenolol 25 mg tablet 25 mg PO DAILY Hold Instructions: changed cholecalciferol (vitamin D3) 50 mcg (2,000 unit) tablet 2,000 unit PO DAILY duloxetine 60 mg capsule,delayed release(DR/EC) 60 mg PO DAILY omeprazole 40 mg capsule,delayed release(DR/EC) 40 mg PO DAILY ondansetron 4 mg tablet,disintegrating 4 mg translingual Q6H PRN (Reason: nausea and vomiting) Ozempic 0.25 mg or 0.5 mg (2 mg/3 mL) pen injector 0.25 mg subcut QWEEK Rx Instructions: for 4 weeks, Saturdays topiramate 50 mg tablet 50 mg PO DAILY oxcarbazepine 300 mg tablet 300 mg PO DAILY hydrocodone-acetaminophen 5-325 mg tablet 1 tab PO Q6H PRN (Reason: pain) Qty: 14 0RF ketorolac 10 mg tablet 10 mg PO Q8H PRN (Reason: pain) Qty: 14 0RF tamsulosin [Flomax] 0.4 mg capsule 0.4 mg PO DAILY Qty: 10 0RF ondansetron 4 mg tablet,disintegrating 4 mg PO Q6H PRN (Reason: nausea and vomiting) Qty: 14 0RF Print Language: Italian Instructions: Constipation (ED), Kidney Stones (ED), Hydronephrosis (ED) Additional Instructions: Take MiraLAX for constipation. Follow-up with urologist of your choice. Referrals: Joseph Crawford MD [Primary Care Provider] - 1 week
--- NOTE | 2023-12-21 00:50 | XR_ITS ---
The [address] [address] Patient Name: OTTO DEL ROSARIO MRN: [id number] date: 1985 Sex: F Assigned Patient Location: ER Current Patient Location: ER Accession/Order Number: [id number] Exam Date: 12/21/2023 01:02 Report Date: 12/21/2023 03:44 At the request of: ANA ROSA HDEZ Procedure: XR abdomen 1V EXAM: XR abdomen 1V HISTORY: Pain, possible constipation COMPARISON: None. TECHNIQUE: One view of the abdomen was obtained. FINDINGS: There is a prominent amount of stool in the colon without evidence of bowel obstruction. A supine view is suboptimal for evaluation of intraperitoneal free air though none is seen. The imaged lung bases are clear. No acute osseous abnormality is seen. There are calcifications overlying the left renal shadow measuring up to 0.6 cm. XR/XR abdomen 1V IMPRESSION: 1. Prominent amount of stool in the colon without evidence of bowel obstruction. 2. Suspected left renal calculi. Electronically authenticated by: Brandan TURCIOS Date: 12/21/2023 03:44
[2023-12-21 00:55] LABS: Basophils Absolute Auto 0.1 10^3/uL (0.0-0.1); Basophils Percent Auto 0.6 % (0.2-2.0); Eosinophils Absolute Auto 0.2 10^3/uL (0.0-0.7); Eosinophils Percent Auto 1.9 % (0.9-7.0); Hematocrit 42.4 % (36.0-48.0); Hemoglobin 13.9 g/dL (12.0-16.0); Immature Granulocytes Abs Auto 0.04 10^3/uL (0.00-0.03); Immature Granulocytes Pct Auto 0.3 % (0.0-0.5); Lymphocytes Absolute Auto 4.6 10^3/uL (1.2-3.8); Mean Corpuscular HGB Conc 32.8 g/dL (29.9-35.2); Mean Corpuscular Hemoglobin 28.7 pg (26.7-34.0); Mean Corpuscular Volume 87.6 fL (81.0-99.0); Mean Platelet Volume 8.4 fL (9.5-13.5); Monocytes Absolute Auto 1.2 10^3/uL (0.3-0.8); Monocytes Percent Auto 9.4 % (1.7-12.0); Neutrophils Absolute Auto 6.6 10^3/uL (1.4-6.5); Neutrophils Percent Auto 51.8 % (43.0-75.0); Platelet Count 304 10^3/uL (150-450); Red Blood Count 4.84 10^6/uL (4.20-5.40); Red Cell Distribution Width 12.6 % (11.0-15.0); White Blood Count 12.8 10^3/uL (4.0-11.0)
[2023-12-21 01:10] LABS: Alanine Aminotransferase 18 U/L (14-59); Albumin Globulin Ratio 1.1; Albumin Level 3.4 g/dL (3.4-5.0); Alkaline Phosphatase 138 U/L (46-116); Amylase 39 U/L (25-115); Anion Gap 9.3; Aspartate Amino Transferase 14 U/L (15-37); BUN Creatinine Ratio 10.6; Bilirubin Direct 0.1 mg/dL (0.0-0.2); Bilirubin Total 0.4 mg/dL (0.2-1.0); Calcium 8.5 mg/dL (8.5-10.1); Carbon Dioxide 28.2 mmol/L (21.0-32.0); Chloride 104 mmol/L (98-107); Estimated GFR (African America 55 (>=60); Estimated GFR (Non-African Ame 45 (>=60); Glucose 95 mg/dL (74-106); Potassium 3.5 mmol/L (3.5-5.1); Sodium 138 mmol/L (136-145); Total Protein 6.4 g/dL (6.4-8.2)
[2023-12-21 01:27] LABS: Bilirubin Urine NEGATIVE (NEGATIVE); Blood Urine SMALL (NEGATIVE); Clarity Urine CLEAR (CLEAR); Color Urine YELLOW (YELLOW); Glucose Urine UA NEGATIVE (NEGATIVE); Ketones Urine NEGATIVE (NEGATIVE); Leukocyte Esterase Urine NEGATIVE (NEGATIVE); Nitrite Urine NEGATIVE (NEGATIVE); Protein Urine NEGATIVE (NEG/TRACE); Specific Gravity Urine >=1.030 (1.005-1.025); Urobilinogen Urine 0.2 EU/dL (0.2-1.0)
[2023-12-21 01:34] LABS: Bacteria Urine NONE SEEN #/HPF (NONE SEEN); Cast Seen? NONE SEEN #/LPF (NONE SEEN); Crystals Seen? None Seen #/HPF (None Seen); Mucus Urine NONE SEEN (NONE SEEN); Squamous Epithelial Cell Urine FEW #/LPF (NONE/RARE); Urine Culture Indicated NO
--- NOTE | 2023-12-21 01:36 | CT_ITS ---
[address] [address] Patient Name: OTTO DEL ROSARIO MRN: [id number] date: 1985 Sex: F Assigned Patient Location: ER Current Patient Location: ER Accession/Order Number: [id number] Exam Date: 12/21/2023 01:52 Report Date: 12/21/2023 04:23 At the request of: ANA ROSA HDEZ Procedure: CT abdomen pelvis wo con EXAMINATION: CT abdomen pelvis wo con HISTORY: Pain, hematuria, rule out stone COMPARISON: CT abdomen pelvis 02/24/2023, 08/05/2022 TECHNIQUE: Axial, Coronal, and Sagittal images were obtained without and/or with IV contrast as indicated by examination type. Dose reduction techniques were achieved by using automated exposure control and/or adjustment of mA and/or kV according to patient size and/or use of iterative reconstruction technique. FINDINGS: LUNG BASES: No visible pulmonary or pleural disease. LIVER: No enlargement, atrophy, suspicious density, or significant focal lesion. BILIARY: No dilatation or calcification. PANCREAS: No lesion, fluid collection, or abnormal duct dilatation. SPLEEN: No enlargement or focal lesion. ADRENALS: No mass or enlargement. KIDNEYS: Mild/moderate left hydronephrosis without perinephric edema. Multiple nonobstructing stones within left kidney. Dilated proximal and mid ureter with a chronic 6 mm stone within mid ureter. Unremarkable right kidney and ureter. BOWEL/MESENTERY: No visible mass, obstruction, or bowel wall thickening. Normal appendix. AORTA/VASCULAR: No aneurysm or dissection. RETROPERITONEUM: No mass or adenopathy. LYMPH NODES: No adenopathy. URINARY BLADDER: No visible focal wall thickening, lesion, or calculus. PELVIC ORGANS: No visible mass. Pelvic organs appropriate for patient age. ABDOMINAL WALL: No mass or hernia. BONES: No bony lesion or fracture. OTHER: Negative. CT/CT abdomen pelvis wo con IMPRESSION: 1. Mild to moderate left hydronephrosis which is new since prior study. Within or adjacent the mid left ureter is a 6 mm stone which was present on the 02/24/2023 study, but at that time with new compared to 08/05/2022. Suspect chronic mid ureteral stone which is now obstructing or partially obstructing. 2. No acute bowel abnormality. Electronically authenticated by: BRIAN SINGER Date: 12/21/2023 04:23
[2023-12-21] MEDS: ONDANSETRON PF 4 MG/2 ML VIAL IV (02:00)
[2023-12-21 02:01] VITALS: BP 126/85; PULSE 80; O2SAT 100
[2023-12-21] MEDS: KETOROLAC TROMETHAMINE 30 MG/ML VIAL IVP (03:41)
== END 2023-12-21 05:07 | disposition home or self-care (01) ==
PROVIDERS: Emergency Provider Emergency Medicine; PCP Family Medicine
DX: K59.00 Constipation, unspecified (principal); Z90.710 Acquired absence of both cervix and uterus; N13.2 Hydronephrosis with renal and ureteral calculous obstruction
CPT/HCPCS: 36415; 74018; 74176; 80048; 80076; 81001; 82150; 83690; 85025; 96374; 96375; 99285; J1885; J2405

== ENCOUNTER 2023-12-21 21:37 | Emergency (ER) | payer BC, SELFPAY ==
--- OUTSIDE RECORDS SUMMARY | 2023-12-21 21:44 | XMS_ITS | CCD ---
Author Organization [facility] Care Team Providers Care Ethernet Network Architect Name Role Phone JSOEPH SOTELO Primary Care Unavailable Kristopher Guerrero Admitting [...] by mouth every six hours HYDROcodone-acetam inophen ([place]) 5-325 MG tablet Take 1 tablet by [...] Active docusate sodium 50 mg / sennosides, penitentiary 8.6 mg oral tablet (6 sources) Start: [...] mg/3 mL) pen injector polyethylene glycol 3350 51005 mg powder for oral solution (15 sources) [...] Roberson MD on 09/26/2023 9:30 AM Normal [facility] XR HIP LT 2-3 VIEWS W OR [...] Menchaca MD on 09/26/2023 6:59 PM Normal [facility] BASIC METABOLIC PANLon 07-05 Anion gap [Moles/Vol] 7 mmol/L Normal 5-15 [facility] Comment on above: Performed By: #### C BCA, BMP #### [facility] ([id number]) [address], [address] [place] [address] Calcium [Mass/Vol] 7.8 mg/dL Low 8.5-10.5 [facility] Comment on above: Performed By: #### C BCA, BMP #### [facility] ([id number]) [address], [address] [place] [address] Chloride [Moles/Vol] 111 mmol/L High 98-109 [facility] Comment on above: Performed By: #### C BCA, BMP #### [facility] ([id number]) [address], [address] [place] [address] CO2 [Moles/Vol] 22 mmol/L Normal 22-32 [facility] Comment on above: Performed By: #### C BCA, BMP #### [facility] ([id number]) [address], [address] [place] [address] Creatinine [Mass/Vol] 0.62 mg/dL Normal 0.40-1.00 [facility] Comment on above: Result Comment: METH OD TRACEABLE TO IDMS STANDARD Performed By: #### C BCA, BMP #### [facility] ([id number]) [address], [address] [place] [address] eGFR (CKD-EPI) NON-RACE DEPENDENT >90 Normal >59 [facility] Comment on above: Result Comment: Reported eGFR is based on the CKD-EPI 2020 equation that does not use a race coefficient. Performed By: #### C BCA, BMP #### [facility] ([id number]) [address], [address] [place] [address] Glucose [Mass/Vol] 118 mg/dL High 65-99 [facility] Comment on above: Performed By: #### C BCA, BMP #### [facility] ([id number]) [address] [place] [address] Potassium [Moles/Vol] 3.6 mmol/L Normal 3.5-5.0 [facility] Comment on above: Performed By: #### C BCA, BMP #### [facility] ([id number]) [address], [address] [place] [address] Sodium [Moles/Vol] 140 mmol/L Normal 134-146 [facility] Comment on above: Performed By: #### C BCA, BMP #### [facility] ([id number]) [address] [address] Urea nitrogen [Mass/Vol] 10 mg/dL Normal 5-23 [facility] Comment on above: Performed By: #### C BCA, BMP #### [facility] ([id number]) [address] [address] [place] [address] CBC AND AUTO DIFFon 07-06-19 24 ABSOLUTE BASOPHIL 0.0 X10E9/L Normal 0.0-0.2 [facility] Comment on above: Performed By: #### C BCA, BMP #### [facility] ([id number]) [address], [address] [place] [address] ABSOLUTE NEUTROPHIL 12.5 X10E9/L High 1.5-6.6 [facility] Comment on above: Performed By: #### C BETTY, BMP #### [facility] ([id number]) [address] [place] [address] Basophils/100 WBC (Bld) 0.1 % Normal [facility] Comment on above: Performed By: #### C BETTY, BMP #### [facility] ([id number]) [address] [place] [address] Eosinophils (Bld) [#/Vol] 0.0 10*3/uL Normal 0.0-0.4 [facility] Comment on above: Performed By: #### C BETTY, BMP #### [facility] ([id number]) [address] [place] [address] Eosinophils/100 WBC (Bld) 0.0 % Normal [facility] Comment on above: Performed By: #### C BETTY, BMP #### [facility] ([id number]) [address] [place] [address] Erythrocyte distribution width (RBC) [Ratio] 14.1 % Normal 11.5-15.0 [facility] Comment on above: Performed By: #### C BETTY, BMP #### [facility] ([id number]) [address] [place] [address] Hematocrit (Bld) [Volume fraction] 38.7 % Normal 35-47 [facility] Comment on above: Performed By: #### C BETTY, BMP #### [facility] ([id number]) [address] [place] [address] Hemoglobin (Bld) [Mass/Vol] 13.0 g/dL Normal 11.7-15.5 [facility] Comment on above: Performed By: #### C BCA, BMP #### [facility] ([id number]) [address] [place] [address] Lymphocytes (Bld) [#/Vol] 0.8 10*3/uL Low 1.0-3.5 [facility] Comment on above: Performed By: #### C BETTY, BMP #### [facility] ([id number]) [address], [address] [place] [address] Lymphocytes/100 WBC (Bld) 5.9 % Normal [facility] Comment on above: Performed By: #### C BETTY, BMP #### [facility] ([id number]) [address], [address] [place] [address] MCH (RBC) [Entitic mass] 29.7 pg Normal 27-34 [facility] Comment on above: Performed By: #### C BETTY, BMP #### [facility] ([id number]) [address], [address] [place] [address] MCHC (RBC) [Mass/Vol] 33.6 g/dL Normal 32-36 [facility] Comment on above: Performed By: #### C BCA, BMP #### [facility] ([id number]) [address] [place] [address] MCV (RBC) [Entitic vol] 88 fL Normal 80-100 [facility] Comment on above: Performed By: #### C BCA, BMP #### [facility] ([id number]) [address], [address] [place] [address] Monocytes (Bld) [#/Vol] 0.4 10*3/uL Normal 0-0.9 [facility] Comment on above: Performed By: #### C BCA, BMP #### [facility] ([id number]) [address], [address] [place] [address] Monocytes/100 WBC (Bld) 3.3 % Normal [facility] Comment on above: Performed By: #### C BETTY, BMP #### [facility] ([id number]) [address] [place] [address] Neutrophils/100 WBC (Bld) 90.7 % Normal [facility] Comment on above: Performed By: #### C BETTY, BMP #### [facility] ([id number]) [address] [place] [address] Platelet mean volume (Bld) [Entitic vol] 6.4 fL Low 7-12 [facility] Comment on above: Performed By: #### C BETTY, BMP #### [facility] ([id number]) [address], [facility] [address] [place] [address] Platelets (Bld) [#/Vol] 349 10*3/uL Normal 150-450 [facility] Comment on above: Performed By: #### C BETTY, BMP #### [facility] ([id number]) [address] [place] [address] RBC COUNT 4.37 X10E12/L Normal 3.80-5.20 [facility] Comment on above: Performed By: #### Charity HERNÁNDEZ, BMP #### [facility] ([id number]) [address], [address] [place] [address] WBC (Bld) [#/Vol] 13.8 10*3/uL High 4.0-11.0 [facility] Comment on above: Performed By: #### C BETTY, BMP #### [facility] ([id number]) [address], [address] [place] [address] HCG ( test) Ql (U)o n 07-06-2023 Beta HCG ( test) Ql (U) Negative Normal NEG [facility] Comment on above: Performed By: #### 2 106-3 #### [facility] ([id number]) [address] [place] [address] Surgical Pathologyon 024 Surgical Pathology Normal [facility] Comment on above: Result Comment: [facility] [address] [place] [address] Surgical Pathology Consultation Patient Name:GISSEL DEL ROSARIO:1985 (Age: 38)Gender:FTaken:07/06/2023eported:07/10/2023hysician(s):Luís Andres M.D. ([phone])Copy To: Rec. #:[id number]: #[id number] Final Pathologic Diagnosis Bilateral fallopian tubes and [...] Out gp/07/10/2023Wagner Duncan MD Interpretation performed at [facility], [address] [place] [address], License number: [id number]. Clinical History Pelvic pain. Gross Description Received [...] each K 1 lymph node, serially sectioned (11,ss,[id number], m2) . /07/07/2023O Microscopic Findings Microscopic examination performed. Specimen(s) Received Bilateral tubes and ovaries and abdominal wall mass Fee Codes(s): 1; 61402 CBC AND AUTO DIFFon 06-26-19 ABSOLUTE BASOPHIL 0.1 X10E9/L Normal 0.0-0.2 [facility] Comment on above: Performed By: #### C BCA #### [facility] ([id number]) [address] [place] [address], [facility] [address] [place] [address] ABSOLUTE NEUTROPHIL 6.4 X10E9/L Normal 1.5-6.6 [facility] Comment on above: Performed By: #### C BCA #### [facility] ([id number]) [address] [place] [address], [address] [place] [address] Basophils/100 WBC (Bld) 0.6 % Normal [facility] Comment on above: Performed By: #### C BCA #### [facility] ([id number]) [address] [place] [address] [address] [place] [address] Eosinophils (Bld) [#/Vol] 0.1 10*3/uL Normal 0.0-0.4 [facility] Comment on above: Performed By: #### C BCA #### [facility] ([id number]) [address], [address] [place] [address] Eosinophils/100 WBC (Bld) 0.7 % Normal [facility] Comment on above: Performed By: #### C BCA #### [facility] ([id number]) [address] [place] [address] Erythrocyte distribution width (RBC) [Ratio] 14.6 % Normal 11.5-15.0 [facility] Comment on above: Performed By: #### C BCA #### [facility] ([id number]) [address], [address] [place] [address] Hematocrit (Bld) [Volume fraction] 42.5 % Normal 35-47 [facility] Comment on above: Performed By: #### C BCA #### [facility] ([id number]) [address] [place] [address] Hemoglobin (Bld) [Mass/Vol] 14.2 g/dL Normal 11.7-15.5 [facility] Comment on above: Performed By: #### C BCA #### [facility] ([id number]) [address] [place] [address] Lymphocytes (Bld) [#/Vol] 3.7 10*3/uL High 1.0-3.5 [facility] Comment on above: Performed By: #### C BCA #### [facility] ([id number]) [address], [address] [place] [address] Lymphocytes/100 WBC (Bld) 33.4 % Normal [facility] Comment on above: Performed By: #### C BCA #### [facility] ([id number]) [address] [place] [address] MCH (RBC) [Entitic mass] 29.3 pg Normal 27-34 [facility] Comment on above: Performed By: #### C BCA #### [facility] ([id number]) [address] [place] [address] MCHC (RBC) [Mass/Vol] 33.4 g/dL Normal 32-36 [facility] Comment on above: Performed By: #### C BCA #### [facility] ([id number]) [address] [place] [address] MCV (RBC) [Entitic vol] 88 fL Normal 80-100 [facility] Comment on above: Performed By: #### C BCA #### [facility] ([id number]) [address] [place] [address] Monocytes (Bld) [#/Vol] 0.7 10*3/uL Normal 0-0.9 [facility] Comment on above: Performed By: #### C BCA #### [facility] ([id number]) [address], [address] [place] [address] Monocytes/100 WBC (Bld) 6.5 % Normal [facility] Comment on above: Performed By: #### C BCA #### [facility] ([id number]) [address] [place] [address] Neutrophils/100 WBC (Bld) 58.8 % Normal [facility] Comment on above: Performed By: #### C BCA #### [facility] ([id number]) [address] [place] [address] Platelet mean volume (Bld) [Entitic vol] 6.6 fL Low 7-12 [facility] Comment on above: Performed By: #### C BCA #### [facility] ([id number]) [address] [place] [address] Platelets (Bld) [#/Vol] 367 10*3/uL Normal 150-450 [facility] Comment on above: Performed By: #### C BCA #### [facility] ([id number]) [address] [place] [address] RBC COUNT 4.84 X10E12/L Normal 3.80-5.20 [facility] Comment on above: Performed By: #### C BCA #### [facility] ([id number]) [address] [place] [address] WBC (Bld) [#/Vol] 11.0 10*3/uL Normal 4.0-11.0 [facility] Comment on above: Performed By: #### C BCA #### [facility] ([id number]) [address] [place] [address] MR PELVIS WO CONTon 06-16-19 MR PELVIS [...] Rodrigez MD on 06/16/2023 11:29 AM Normal [facility] CT ABD/PELVIS WO CONon 08-05 CT ABD/PELVIS [...] JAYDEN MORGAN Date: 2022-08-05 16:55 Normal [facility] QUANTIFERON TB GOLD PLUSon 0 06-18-2022 QuantiFERON Criteria Comment Normal [facility] Comment on above: Result Comment: Gagandeep tiFERON-TB [...] test. Performed By: #### Q NTTB #### [facility] [address] [place] [address] Dr. Yovanny Alcantara QuantiFERON Incubation Incubation performed. Normal [facility] Comment on above: Performed By: #### Q NTTB #### [facility] [address] [place] [address] Dr. Yovanny Alcantara QuantiFERON Mitogen Value >10.[address] [facility] Comment on above: Performed By: #### Q NTTB #### [facility] [address] [place] [address] Dr. Yovanny Alcantara QuantiFERON Nil Value 0.03 IU/mL Normal [facility] Comment on above: Performed By: #### Q NTTB #### [facility] [address] [place] [address] Dr. Yovanny Alcantara QuantiFERON TB1 Ag Value 0.05 IU/mL Normal [facility] Comment on above: Performed By: #### Q NTTB #### [facility] [address] [place] [address] Dr. Yovanny Alcantara QuantiFERON TB2 Ag Value 0.06 IU/mL Normal [facility] Comment on above: Performed By: #### Q NTTB #### [facility] [address] [place] [address] Dr. Yovanny Alcantara QuantiFERON-TB Gold Plus Negative Normal Negative [facility] Comment on above: Result Comment: No r esponse to M tuberculosis antigens detected. Infection with M tuberculosis is unlikely, but high risk individuals should be considered for additional testing (ATS/IDSA/CDC Clinical Practice Guidelines, 2017). The reference range is an Antigen minus Nil result of <0.35 IU/mL. Chemiluminescence immunoassay methodology Performed By: #### Q NTTB #### [facility] [address] [place] [address] Dr. Yovanny Alcantara HEPATITIS B SURFACE ANTIBODY , QUANTon 06-17-2022 Hepatitis B Surf AB Quant 3.5 mIU/mL Critically low Immunity>9.9 [facility] Comment on above: Result Comment: Stat us of Immunity Anti-HBs Level Inconsistent with Immunity 0.0 - 9.9 Consistent with Immunity >9.9 Performed By: #### H EPBSRF ####[facility] [address] [place], [place] [address]AvDr. Yovanny Alcantara MMR IMMUNITYon 06-17-2022 Mumps Abs, IgG 17.4 AU/mL Normal Immune >10.9 [facility] Comment on above: Result Comment: Nega tive <9.0 Equivocal 9.0 - 10.9 Positive >10.9 A positive result generally indicates past exposure to Mumps virus or previous vaccination. Performed By: #### M MRIMMU #### [facility] [address] [address] [address] Yovanny Alcantara Rubella Antibodies, IgG 1.68 index Normal Immune >0.99 [facility] Comment on above: Result Comment: Non- immune <0.90 Equivocal 0.90 - 0.99 Immune >0.99 Performed By: #### M MRIMMU #### [facility] [address] [address] [address] Yovanny Alcantara Rubeola Ab, IgG 108.0 AU/mL Normal Immune >16.4 [facility] Comment on above: Result Comment: Nega tive <13.5 Equivocal 13.5 - 16.4 Positive >16.4 Presence of antibodies to Rubeola is presumptive evidence of immunity except when acute infection is suspected. Performed By: #### M MRIMMU #### [facility] [address] [address] [address] Yovanny Alcantara VARICELLA IGG ABon 3 Varicella Zoster IgG 947 index Normal Immune >165 [facility] Comment on above: Result Comment: Nega tive <135 Equivocal 135 - 165 Positive >165 A positive result generally indicates exposure to the pathogen or administration of specific immunoglobulins, but it is not indication of active infection or stage of disease. Performed By: #### V ARCEL ####[facility] [address] [place], [place] [address]HpDr. Yovanny Alcantara Consent Formson 05-01-2022 Consent Forms [id number] Normal [facility] US CESIA DOP LEG RTon 12-31-19 US [...] FRANTZ COVARRUBIAS Date: 2021-12-30 10:39 Normal [facility] CBC AUTO DIFFon 12-29-2021 BASO # 0.1 103/ul Normal 0.0-0.1 [facility] Comment on above: Performed By: #### C BC #### [facility] [address] [address] [address] Yovanny Alcantara Basophils/100 WBC (Bld) 0.7 % Normal 0.2-2.0 [facility] Comment on above: Performed By: #### C BC #### [facility] [address] [address] [address] Yovanny Alcantara EO # 0.2 103/ul Normal 0.0-0.7 [facility] Comment on above: Performed By: #### C BC #### [facility] [address] [address] [address] Yovanny Alcantara Eosinophils/100 WBC (Bld) 1.3 % Normal 0.9-7.0 [facility] Comment on above: Performed By: #### C BC #### [facility] [address] [place] [address] Dr. Yovanny Alcantara Erythrocyte distribution width (RBC) [Ratio] 13.9 % Normal 11.0-15.0 [facility] Comment on above: Performed By: #### C BC #### [facility] [address] [place] [address] Dr. Yovanny Alcantara Hematocrit (Bld) [Volume fraction] 43.7 % Normal 36.0-48.0 [facility] Comment on above: Performed By: #### C BC #### [facility] [address] [place] [address] Dr. Yovanny Alcantara Hemoglobin (Bld) [Mass/Vol] 13.8 g/dL Normal 12.0-16.0 [facility] Comment on above: Performed By: #### C BC #### [facility] [address] [place] [address] Dr. Yovanny Alcantara IG # 0.11 10e3/ul Critically high 0.00-0.03 [facility] Comment on above: Performed By: #### C BC #### [facility] [address] [place] [address] Dr. Yovanny Alcantara IG % 0.8 % Critically high 0.0-0.5 [facility] Comment on above: Performed By: #### C BC #### [facility] [address] [place] [address] Dr. Yovanny Alcantara LYMPH # 3.7 103/ul Normal 1.2-3.8 [facility] Comment on above: Performed By: #### C BC #### [facility] [address] [place] [address] Dr. Yovanny Alcantara Lymphocytes/100 WBC (Bld) 27.0 % Normal 20.5-60.0 [facility] Comment on above: Performed By: #### C BC #### [facility] [address] [place] [address] Dr. Yovanny Alcantara MANUAL DIFF REQ NO Normal [facility] Comment on above: Performed By: #### C BC #### [facility] [address] [address] [address] Yovanny Alcantara MCH (RBC) [Entitic mass] 26.7 pg Normal 26.7-34.0 [facility] Comment on above: Performed By: #### C BC #### [facility] [address] [address] [address] Yovanny Alcantara MCHC (RBC) [Mass/Vol] 31.6 g/dL Normal 29.9-35.2 [facility] Comment on above: Performed By: #### C BC #### [facility] [address] [place] [address] Dr. Yovanny Alcantara MCV (RBC) [Entitic vol] 84.5 fL Normal 81.0-99.0 [facility] Comment on above: Performed By: #### C BC #### [facility] [address] [place] [address] Dr. Yovanny Alcantara MONO # 0.9 103/ul Critically high 0.3-0.8 [facility] Comment on above: Performed By: #### C BC #### [facility] [address] [place] [address] Dr. Yovanny Alcantara Monocytes/100 WBC (Bld) 6.5 % Normal 1.7-12.0 [facility] Comment on above: Performed By: #### C BC #### [facility] [address] [place] [address] Dr. Yovanny Alcantara NEUT # 8.8 103/ul Critically high 1.4-6.5 [facility] Comment on above: Performed By: #### C BC #### [facility] [address] [place] [address] Dr. Yovanny Alcantara Neutrophils/100 WBC (Bld) 63.7 % Normal 43.0-75.0 [facility] Comment on above: Performed By: #### C BC #### [facility] [address] [place] [address] Dr. Yovanny Alcantara Platelet mean volume (Bld) [Entitic vol] 8.3 fL Critically low 9.5-13.5 [facility] Comment on above: Performed By: #### C BC #### [facility] [address] [place], [place] [address] Dr. Yovanny Alcantara PLT 364 103/ul Normal 150-450 [facility] Comment on above: Performed By: #### C BC #### [facility] [address] [place], [place] [address] Dr. Yovanny Alcantara RBC 5.17 106/ul Normal 4.20-5.40 [facility] Comment on above: Performed By: #### C BC #### [facility] [address] [place], [place] [address] Dr. Yovanny Alcantara WBC 13.8 103/ul Critically high 4.0-11.0 [facility] Comment on above: Performed By: #### C BC #### [facility] [address] [place], [place] [address] Dr. Yovanny Alcantara CTA CHEST WO W [...] by: AMINA WU Date: 2021-12-29 01:[address] [facility] D-DIMERon 12-29-2021 D-DIMER 0.68 mg/L FEU Critically high <=0.59 [facility] Comment on above: Performed By: #### P TT, PT, DDIM ####[facility] [id number] [address]Dr. Yovanny Alcantara D-DIMER COMMENTS SEE BELOW Normal [facility] Comment on above: Result Comment: Incr eases [...] Performed By: #### P TT, PT, DDIM ####[facility] [address] [address]Dr. Yovanny Alcantara ER URINE PROFILEon 2 Bilirubin Ql (U) Negative Normal NEGATIVE [facility] Comment on above: Performed By: #### E RUR #### [facility] [address] [place] [address] Dr. Yovanny Alcantara Clarity (U) CLEAR Normal CLEAR [facility] Comment on above: Performed By: #### E RUR #### [facility] [address] [place] [address] Dr. Yovanny Alcantara Color (U) YELLOW Normal YELLOW [facility] Comment on above: Performed By: #### E RUR #### [facility] [facility] [address] [place] [address] Dr. Yovanny Alcantara ERUAHMike A micrscopic examination will be performed if indicated. Normal The [facility] Comment on above: Performed By: #### E RUR #### [facility] [address] [place] [address] Dr. Yovanny Alcantara Glucose Ql (U) Negative Normal NEGATIVE The [facility] Comment on above: Performed By: #### E RUR #### [facility] [address] [place] [address] Dr. Yovanny Alcantara Hemoglobin Ql (U) Negative Normal NEGATIVE The [facility] [place] Comment on above: Performed By: #### E RUR #### [facility] [address] [place] [address] Dr. Yovanny Alcantara Ketones Ql (U) Negative Normal NEGATIVE [facility] Comment on above: Performed By: #### E RUR #### [facility] [address] [place] [address] Dr. Yovanny Alcantara LEUKOCYTES Negative Normal NEGATIVE [facility] Comment on above: Performed By: #### E RUR #### [facility] [address] [place] [address] Dr. Yovanny Alcantara Nitrite Ql (U) Negative Normal NEGATIVE [facility] Comment on above: Performed By: #### E RUR #### [facility] [address] [place] [address] Dr. Yovanny Alcantara pH (U) 6.5 [pH] Normal 5-9 [facility] Comment on above: Performed By: #### E RUR #### [facility] [address] [place] [address] Dr. Yovanny Alcantara SPEC GRAVITY 1.020 Normal 1.005-<=1.025 [facility] Comment on above: Performed By: #### E RUR #### [facility] [address] [place] [address] Dr. Yovanny Alcantara UA PROTEIN Negative Normal NEGATIVE/ TRACE [facility] Comment on above: Performed By: #### E RUR #### [facility] [address] [place] [address] Dr. Yovanny Alcantara UR MICRO IND NOT INDICATED Normal The [facility] Comment on above: Performed By: #### E RUR #### [facility] [address] [place] [address] Dr. Yovanny Alcantara Urobilinogen Qn (U) 0.2 {Eunice'U}/dL Normal 0.2 - 1.0 [facility] Comment on above: Performed By: #### E RUR #### [facility] [address] [place], [place] [address] Dr. Yovanny Alcantara PROTIMEon 12-29-2021 INR Coag (PPP) [Relative time] 0.94 {INR} Normal [facility] Comment on above: Performed By: #### P TT, PT, DDIM ####[facility] [id number] [place] [address]Dr. Yovanny Alcantara INR GUIDELINES SEE BELOW Normal [facility] Comment on above: Result Comment: JENNIFER RED INR: 2.0 - 3.0 CONDITIONS NOT LISTED BELOW 2.5 - 3.5 FOR PROSTHETIC HEART VALVE REPLACEMENT 2.5 - 3.5 RECURRENT THROMBOSIS Performed By: #### P TT, PT, DDIM ####[facility] [id number] [place] [address]Dr. Yovanny Alcantara PT Coag (PPP) [Time] 10.2 s Normal 9.0-11.6 [facility] Comment on above: Performed By: #### P TT, PT, DDIM ####[facility] [id number] [place] [address]Dr. Yovanny Alcantara PTTon 12-29-2021 aPTT Coag (Bld) [Time] 28.2 s Normal 22.3-36.2 [facility] Comment on above: Performed By: #### P TT, PT, DDIM ####[facility] [id number] [place] [address]Dr. Yovanny Alcantara .QC Respiratory Panel 2.1 (B ioFire)on 11-19-2021 Internal Control-Resp Panel 2.1(BioFire) Pass [facility] Comment on above: Order Comment: Order ed by Discern. [[id number]] Performed By: #### [id number] #### [facility] (DEFAULT) [address] [place] [address] Consent Formson 11-08-2021 Consent Forms [id number] .[id number] [facility] .QC Respiratory Panel 2.1 (B ioFire)on 11-02-2021 Internal Control-Resp Panel 2.1(BioFire) Pass Normal [facility] Comment on above: Order Comment: Order ed by Mirian. [[id number]] Performed By: #### [id number] #### [facility] (DEFAULT) [address] [place] [address] XR LSPINE 2_3 VIEWSon 2021 XR LSPINE [...] by: ASHLEY CARRANZA Date: 2021-09-28 07:[address] [facility] US PELVIS AND TRANSVAGon US PELVIS [...] by: BRIAN SINGER Date: 2021-08-20 09:[address] [facility] Consent Formson 05-16-2021 Consent Forms [id number] .[id number] Normal [facility] .QC Respiratory Panel 2.1 (B ioFire)on 05-13-2021 Internal Control-Resp Panel 2.1(BioFire) Pass Normal [facility] Comment on above: Order Comment: Order ed by Discern. 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 Facility 08-05-2023 10:57-0400 Body height 157.5 cm [facility]ara Carroll [facility] 08-05-2023 10:57-0400 Body mass index (BMI) [Ratio] 28.34 kg/m2 [facility]ara Carroll [facility] 08-05-2023 10:57-0400 Body temperature 97.9 [degF] Dayanara Carroll [facility] 08-05-2023 10:57-0400 Body weight 70.31 kg [facility]ara [facility] 08-05-2023 10:57-0400 Diastolic blood pressure 118 mm[Hg] Dayanara Carroll PA [facility] 08-05-2023 10:57-0400 Heart rate 115 /min Day[facility]ara Carroll [facility] 08-05-2023 10:57-0400 Respiratory rate 18 /min Day[facility]ara Carroll PA [facility] 08-05-2023 10:57-0400 SaO2% (BldA) [Mass fraction] 100 % Day[facility]ara Carroll [facility] 08-05-2023 10:57-0400 Systolic blood pressure 149 mm[Hg] Dayanara Carroll [facility] 07-30-2023 14:43-0400 Body height 157.5 cm Basel Sharda PA Work Phone: [employer] 07-30-2023 14:43-0400 Body mass index (BMI) [Ratio] 29.26 kg/m2 Basel Sharda PA Work Phone: [employer] 07-30-2023 14:43-0400 Body weight 72.58 kg Basel Sharda [facility] 07-22-2023 08:52-0400 Body height 157.5 cm Dayanara Carroll PA Work Phone: [employer] 07-22-2023 08:52-0400 Body mass index (BMI) [Ratio] 29.26 kg/m2 Dayanara Carroll PA Work Phone: [employer] 07-22-2023 08:52-0400 Body weight 72.58 kg Dayanara Carroll PA Work Phone: [employer] 07-22-2023 08:52-0400 Diastolic blood pressure 95 mm[Hg] Dayanara Carroll PA Work Phone: [employer] 07-22-2023 08:52-0400 Heart rate 90 /min Dayanara Carroll PA Work Phone: [employer] 07-22-2023 08:52-0400 Respiratory rate 20 /min Dayanara Carroll PA Work Phone: [employer] 07-22-2023 08:52-0400 SaO2% (BldA) [Mass fraction] 100 % Dayanara Carroll PA Work Phone: [employer] 07-22-2023 08:52-0400 Systolic blood pressure 122 mm[Hg] Dayanara Carroll PA Work Phone: [employer] 06-17-2023 08:25-0500 Body height 157.5 cm Luís Andres MD Work Phone: [employer] 06-17-2023 08:25-0500 Body mass index (BMI) [Ratio] 29.29 kg/m2 Luís Andres MD Work Phone: [facility] 06-17-2023 08:25-0500 Body temperature 98.6 [degF] Luís Andres MD Work Phone: [facility] 06-17-2023 08:25-0500 Body weight 72.67 kg Luís Andres MD Work Phone: [facility] 06-17-2023 08:25-0500 Diastolic blood pressure 84 mm[Hg] Luís Andres MD Work Phone: [facility] 06-17-2023 08:25-0500 Heart rate 95 /min Luís Andres MD Work Phone: [facility] 06-17-2023 08:25-0500 SaO2% (BldA) [Mass fraction] 90 % Luís Anrdes MD Work Phone: [facility] 06-17-2023 08:25-0500 Systolic blood pressure 128 mm[Hg] Luís Andres MD Work Phone: [facility] 06-11-2023 15:12-0500 Body height 157.5 cm Joseph Sotelo MD Work Phone: [facility] 06-11-2023 15:12-0500 Body mass index (BMI) [Ratio] 28.53 kg/m2 Joseph Sotelo MD Work Phone: [facility] 06-11-2023 15:12-0500 Body temperature 97.81 [degF] Joseph Sotelo MD Work Phone: [facility] 06-11-2023 15:12-0500 Body weight 70.76 kg Joseph Sotelo MD Work Phone: [facility] 06-11-2023 15:12-0500 Diastolic blood pressure 60 mm[Hg] Joseph Sotelo MD Work Phone: [facility] 06-11-2023 15:12-0500 Heart rate 101 /min Joseph Sotelo MD Work Phone: [facility] 06-11-2023 15:12-0500 SaO2% (BldA) [Mass fraction] 99 % Joseph Sotelo MD Work Phone: [facility] 06-11-2023 15:12-0500 Systolic blood pressure 100 mm[Hg] Joseph Sotelo MD Work Phone: [facility] 06-03-2023 08:26-0500 Diastolic blood pressure 64 mm[Hg] Luís Andres MD Work Phone: [facility] 06-03-2023 08:26-0500 Systolic blood pressure 106 mm[Hg] Luís Andres MD Work Phone: [facility] 06-03-2023 08:12-0500 Body height 157.5 cm Luís Andres MD Work Phone: [facility] 06-03-2023 08:12-0500 Body mass index (BMI) [Ratio] 29.26 kg/m2 Luís Andres MD Work Phone: [facility] 06-03-2023 08:12-0500 Body weight 72.58 kg Luís Andres MD Work Phone: [facility] 03-24-2023 10:40-0500 Body height 154.1 cm Vu Juarez MD MPH Work Phone: [facility] 03-24-2023 10:40-0500 Body mass index (BMI) [Ratio] 31.92 kg/m2 Vu Juarez MD MPH Work Phone: [facility] 03-24-2023 10:40-0500 Body temperature 97.3 [degF] Vu Juarez MD MPH Work Phone: [facility] 03-24-2023 10:40-0500 Body weight 75.8 kg Vu Juarez MD MPH Work Phone: [facility] 03-24-2023 10:40-0500 Diastolic blood pressure 107 mm[Hg] Vu Juarez MD MPH Work Phone: [facility] 03-24-2023 10:40-0500 Heart rate 85 /min Vu Juarez MD MPH Work Phone: [facility] 03-24-2023 10:40-0500 Respiratory rate 16 /min Vu Juarez MD MPH Work Phone: [facility] 03-24-2023 10:40-0500 SaO2% (BldA) [Mass fraction] 98 % Vu Juarez MD MPH Work Phone: [facility] 03-24-2023 10:40-0500 Systolic blood pressure 148 mm[Hg] Vu Juarez MD MPH Work Phone: [facility] 09-05-2022 10:45-0400 Body height 155.57 cm Hilary Staton Other [employer] Other 09-05-2022 10:45-0400 Body mass index (BMI) [Ratio] 33.73 kg/m2 Hilary Staton Other [employer] Other 09-05-2022 10:45-0400 Body temperature 97.3 [degF] Hilary Staton Other [employer] Other 09-05-2022 10:45-0400 Body weight 81.65 kg Hilary Staton Other [employer] Other 09-05-2022 10:45-0400 Diastolic blood pressure 98 mm[Hg] Hilary Staton Other [employer] Other 09-05-2022 10:45-0400 Respiratory rate 18 /min Hilary Staton Other [employer] Other 09-05-2022 10:45-0400 SaO2% (BldA) [Mass fraction] 99 % Hilary Staton Other [employer] [facility] [employer] Other 09-05-2022 10:45-0400 Systolic blood pressure 139 mm[Hg] Hilary Staton Other [employer] [facility] [employer] Other Encounters Encounter Date Encounter Type Care Provider Facility Start: 09-25-2023 End: 09-26-2023 [facility] Start: 08-05-2023 End: 08-05-2023 [facility] Start: 08-05-2023 End: 08-05-2023 Postop follow up visit related to original px Dayanara Perezne PA Work Phone: Diana Recio [facility] Comment on above: Encounter for postop erative care (Primary Dx); Menopausal symptoms Start: 08-03-2023 Telephone encounter Dayanara cooney PA Work Phone: [facility] Start: 07-30-2023 End: 07-30-2023 Postop follow up visit related to original px Isaac Robin PA Work Phone: [facility] Comment on above: Abdominal wall mass (Primary Dx) Start: 07-27-2023 Orders Only Dayanara Carroll PA Work Phone: [facility] Comment on above: Muscle spasms of bot h lower extremities (Primary Dx) Start: 07-22-2023 End: 07-22-2023 ambulatory [facility] Start: 07-22-2023 End: 07-22-2023 Postop follow up visit related to original px Dayanara Carroll PA Work Phone: Diana Recio [facility] Comment on above: Encounter for postop erative care (Primary Dx); Menopausal symptoms; Acute serous otitis media, recurrence not specified, unspecified laterality Start: 07-13-2023 Telephone encounter Sheyla Mendoza RN [facility] Start: 07-07-2023 End: 07-07-2023 Evaluation and management of inpatient ELSI RICK [facility] Start: 07-06-2023 End: 07-07-2023 Evaluation and management of inpatient [facility] Start: 06-29-2023 End: 06-29-2023 ambulatory JOSEPH SOTELO [facility] Start: 06-29-2023 End: 06-29-2023 Admission to [facility] Phone Call Provider 2 [facility] Start: 06-26-2023 End: 06-27-2023 ambulatory LUÍS Char[facility] Start: 06-26-2023 Encounter for other preprocedural examination DAYANARA CARROLL [facility] Start: 06-25-2023 Orders Only Luís Andres MD Work Phone: [facility] Comment on above: Preop testing (Prima ry Dx) Start: 06-25-2023 Patient encounter status Luís Andres MD Work Phone: [facility] Start: 06-17-2023 End: 06-17-2023 ambulatory LUÍS [facility] Start: 06-17-2023 End: 06-17-2023 Office outpatient visit 40 minutes Luís Andres MD Work Phone: [facility] Comment on above: Pelvic mass (Primary Dx) Start: 2023 End: 06-16-2023 ambulatory [facility] Start: 06-11-2023 End: 06-11-2023 ambulatory JOSEPH SOTELO Not Available Start: 06-11-2023 End: 06-11-2023 Office outpatient visit 25 minutes Joseph Sotelo MD Work Phone: [facility] Comment on above: Benign essential hyp ertension (CMS/HCC) (Primary Dx); Sinus tachycardia; 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 Start: 06-11-2023 Bamboo flowsheet Joseph Sotelo MD Work Phone: [facility] Start: 06-11-2023 Bamboo flowsheet Joseph Sotelo MD Work Phone: [facility] Start: 06-03-2023 End: 06-03-2023 ambulatory LUÍS ANDRES [facility] Start: 06-03-2023 End: 06-03-2023 Office outpatient new 60 minutes Luís Andres MD Work Phone: [facility] Comment on above: Pelvic mass (Primary Dx); Endometriosis; 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; Pelvic pain Start: 05-22-2023 ambulatory JOSEPH SOTELO [facility] Start: 05-20-2023 Telephone encounter Sheyla Mendoza RN [facility] Start: 05-19-2023 End: 05-19-2023 ambulatory COMPA DYEZIO Not Available Start: 05-06-2023 End: 05-06-2023 ambulatory JOSEPH SOTELO Not Available Start: 04-08-2023 End: 04-08-2023 Office outpatient new 45 minutes Jeremy Jang MD Work Phone: [facility] Comment on above: Endometrioma Start: 04-08-2023 End: 04-08-2023 ambulatory JOSEPH SOTELO Not Available Start: 03-24-2023 End: 03-24-2023 [facility] Start: 03-24-2023 End: 03-24-2023 Office outpatient new 60 minutes Vu Juarez MD MPH Work Phone: [facility] Comment on above: Endometrioma (Primar y Dx) Start: 09-05-2022 End: 09-05-2022 ambulatory Hilary Staton Other [employer] Other Start: 09-05-2022 Office outpatient ne w 20 minutes Hilary Staton [facility] Start: 08-05-2022 End: 08-06-2022 ambulatory SHAIKH Neema KRISHNA Facility: Start: 06-16-2022 End: 06-16-2022 ambulatory AYDIN CAMACHO Facility:[facility] Start: 04-23-2022 End: 04-24-2022 ambulatory Kristopher Guerrero Facility:[facility] Start: 12-30-2021 End: 12-31-[address] JOSEPH SOTELO Facility:[facility] Start: 12-28-2021 End: 12-29-[address] JOSEPH SOTELO Facility:[facility] Start: 11-19-2021 End: 11-20-2021 ambulatory JOSEPH SOTELO Facility:[facility] Start: 11-02-2021 End: 11-02-2021 ambulatory JOSEPH SOTELO Facility:[facility] Start: 09-27-2021 End: 09-28-[address] JOSEPH SOTELO Facility:[facility] Start: 08-20-2021 End: 08-21-[address] JOSEPH SOTELO Facility: Start: 05-14-2021 End: 05-14-2021 ambulatory JOSEPH SOTELO Facility:[facility] Procedures Date Procedure Procedure Detail Performing Clinician Start: 07-22-2023 Follow-up visit Follow-up JEAN CARLOS CARROLL Start: 07-06-2023 Adult depression scr eening assessment Sheyla Mendoza RN Plan of Treatment Date Care Activity Detail Author Start: 2036 Zoster Vaccines (1 of 2) Zoste r Vaccines (1 of 2) [facility] Start: 07-28-2027 DTaP,Tdap and Td Vaccines (6 - Td or Tdap) DTaP,Tdap and Td Vaccines (6 - Td or Tdap) [facility] Start: 07-28-2027 DTaP/Tdap/Td Vaccine s (6 - Td or Tdap) DTaP/Tdap/Td Vaccines (6 - Td or Tdap) [facility] Start: 08-04-2024 Adult BMI Screening Adult BMI Screen ing [facility] Start: 07-29-2024 Adult BMI Screening Adult BMI Screen ing [facility] Start: 07-29-2024 Tobacco Screening Tobacco Screening [facility] Start: 07-21-2024 Adult BMI Screening Adult BMI Screen ing [facility] Start: 07-21-2024 Tobacco Screening Tobacco Screening [facility] Start: 07-06-2024 Adult BMI Screening Adult BMI Screen ing [facility] Start: 07-05-2024 Depression Screening Depression Scre ening [facility] Start: 07-05-2024 Tobacco Screening Tobacco Screening [facility] Start: 06-29-2024 Tobacco Screening Tobacco Screening [facility] Start: 06-17-2024 Adult BMI Screening Adult BMI Screen ing [facility] Start: 06-17-2024 Tobacco Screening Tobacco Screening [facility] Start: 06-03-2024 Adult BMI Screening Adult BMI Screen ing [facility] Start: 06-03-2024 Tobacco Screening Tobacco Screening [facility] Start: 01-03-2024 Influenza vaccination Influenza Vacc ine [facility] Start: 08-10-2023 End: 08-10-2023 Patient encounter procedure 08/10/2023 2:45 PM EDT [facility] [address] [place] [address] Joseph Sotelo MD [address] [place] [address] [facility] Start: 08-05-2023 End: 08-05-2023 Patient encounter procedure Diana Recio [facility] Start: 07-30-2023 End: 07-30-2023 Patient encounter procedure 07/30/2023 3:00 PM EDT Office Visit [facility] General Surgery [address] [place] [address] [facility] Start: 07-22-2023 End: 07-22-2023 Patient encounter procedure 07/22/2023 9:00 AM EDT Office Visit Diana Recio [facility] [address] [place] [address] Dayanara Carroll PA [address] [place] [address] Diana Recio [facility] Start: 07-06-2023 End: 07-06-2023 Admission to same day surgery center [facility] Comment on above: DAVINCI SALPINGO OOP HORECTOMY/ ABDOMINAL WALL RESECTION ENDOMETRIOSIS DAVINCI SALPINGO OOP HORECTOMY Start: 07-06-2023 End: 07-06-2023 DAVINCI SALPINGO OOPHORECTOMY DAVINCI SALPINGO OOPHORECTOMY PELVIC PAIN 07/06/2023 10:00 AM EST [facility] Start: 07-06-2023 End: 07-06-2023 Laps fulg/exc ovary viscera/peritoneal surface DAVINCI FULGURATION ENDOMETRIAL IMPLANTS PELVIC PAIN 07/06/2023 10:00 AM EST [facility] Start: 07-06-2023 Subsequent hospital visit by physician 07/06/2023 10:00 AM EST Hospital Encounter [facility] Surgery [address] [place] [phone] Luís Andres MD [address] [place] [address], [address] [place] [address] [facility] Surgery Start: 07-06-2023 End: 07-06-2023 Unlisted laparoscopic px abd pertoneum & omentum DAVINCI RESECTION MASS PERITONEAL PELVIC PAIN 07/06/2023 10:00 AM EST [facility] Start: 06-29-2023 End: 06-29-2023 Admission to establishment 06/29/2023 12:45 PM EST Support Visit [facility] On [address] [phone] [facility] Metyissel [facility]Ad[facility] Start: 06-17-2023 End: 06-17-2023 Patient encounter procedure 06/17/2023 8:30 AM EST Office Visit [facility] [address] [place] [address] [address] [place] [phone] Luís [place] [address] [place] [address], [address] [place] [address] [facility] Start: 06-11-2023 End: 06-11-2023 Patient encounter procedure 06/11/2023 3:15 PM EST Office Visit [facility] [address] [place] [phone] Joseph Sotelo MD [address] [place] [phone] Arrived [facility] Comment on above: Arrived Start: 06-03-2023 End: 06-03-2024 MR Pelvis WO contrast MR pelvis without contrast Imaging Routine Pelvic mass Endometriosis Expected: 06/03/2023, Expires: 06/03/2024 [facility] Work Phone: Comment on above: Expected: 06/03/2023 , Expires: 06/03/2024 Start: 06-03-2023 End: 06-03-2023 Patient encounter procedure 06/03/2023 8:00 AM EST Office Visit [facility] [address] [place] [address] [address] [place] [address] Luís Andres MD [address] [place] [address], [address] [place] [address] [facility] [facility] Start: 01-02-2023 COVID-19 Vaccine ( season) COVID-19 Vaccine ( season) [facility] Start: 01-02-2023 Influenza vaccination U [facility] Start: 04-26-2021 COVID-19 Vaccine (4 - Moderna series) COVID-19 Vaccine (4 - Moderna series) [facility] Start: 12-24-2017 Varicella vaccination Varicell a Vaccines (2 of 2 - 13+ 2-dose series) [facility] Start: 2007 Screening for malign ant neoplasm of cervix [facility] Start: 2004 Adult BMI Follow Up Plan Adult BMI Follow Up Plan [facility] Start: 2004 Adult BMI Screening Adult BMI Screen ing [facility] Start: 2004 Diabetes mellitus screening Diabetes Screening [facility] Start: 2004 Hepatitis C screening Hepatitis C Sc reening [facility] Start: 1998 Depression Screening Depression Scre ening [facility] Start: 1998 Tobacco Screening Tobacco Screening [facility] Start: 1986 HIV screening [facility] Screening [facility] [facility] Start: 1986 Lipid panel Lipid Panel [facility] Start: 1986 Yearly Adult Physical Yearly Adult P hysical [facility] End: 06-25-2024 CBC W Auto Differential panel - Blood CBC with auto diff Lab Routine Preop testing 1 Occurrences starting 06/25/2023 until 06/25/2024 [facility] Work Phone: Comment on above: 1 Occurrences starti ng 06/25/2023 until 06/25/2024 Immunizations Immunization Date Immunization Notes Care Provider Fa [facility] 02-18-2021 influenza, injectabl e, quadrivalent, preservative free Sheyla Mendoza RN [facility] 02-18-2021 influenza virus vaccine, unspecified formulation Vu Juarez MD MPH Work Phone: [facility] Work Phone: 01-31-2020 influenza, injectabl e, quadrivalent, preservative free Sheyla Mendoza RN [facility] 01-31-2020 influenza virus vaccine, unspecified formulation Sheyla Mendoza RN [facility] 01-29-2020 influenza, injectabl e, quadrivalent, preservative free Sheyla Mendoza RN [facility] 01-13-2019 influenza, injectabl e, quadrivalent, preservative free Sheyla Mendoza RN [facility] 01-01-2018 influenza, injectabl e, quadrivalent, preservative free Sheyla Mendoza RN [facility] 11-26-2017 hepatitis B vaccine, adult dosage Sheyla Mendoza RN [facility] 11-26-2017 varicella virus vaccine Vu Juarez MD MPH Work Phone: [facility] Work Phone: 07-27-2017 hepatitis B vaccine, adult dosage Sheyla Mendoza RN [facility] 07-27-2017 tetanus toxoid, reduced diphtheria toxoid, and acellular pertussis vaccine, adsorbed Sheyla Mendoza RN [facility] 01-11-2014 influenza, seasonal, injectable, preservative free Hilary Staton Other [employer] Other 12-28-1998 hepatitis B vaccine, pediatric or pediatric/adolescent dosage Sheyla Mendoza RN [facility] 12-28-1998 measles, mumps and rubella virus vaccine Sheyla Mendoza RN [facility] 12-28-1998 TD(adult) unspecifie d formulation Sheyla Mendoza RN [facility] 07-01-1991 diphtheria, tetanus toxoids and pertussis vaccine Sheyla Mendoza RN [facility] 07-01-1991 trivalent poliovirus vaccine, live, oral Sheyla Mendoza RN [facility] 01-30-1989 diphtheria, tetanus toxoids and pertussis vaccine Sheyla Mendoza RN [facility] 01-30-1989 measles, mumps and rubella virus vaccine Sheyla Mendoza RN [facility] 1986 diphtheria, tetanus toxoids and pertussis vaccine Sheyla Mendoza RN [facility] 1986 trivalent poliovirus vaccine, live, oral Sheyla Mendoza RN [facility] 1986 diphtheria, tetanus toxoids and pertussis vaccine Sheyla Mendoza RN [facility] 1986 trivalent poliovirus vaccine, live, oral Sheyla Mendoza RN [facility] Payers Date Payer Category Payer Unknown [id number] 2017 [facility] GTFAN [id number] 1986 Unknown [id number] 2.16.84 0.1.520763.3.579.2.593 1986 Unknown [id number] 2.16.84 0.1.880874.3.579.2.593 1986 Unknown [id number] 2.16.84 0.1.852132.3.579.2.593 1986 Unknown [id number] 2.16.84 0.1.621518.3.579.2.593 1986 Unknown [id number] 2.16.84 0.1.048886.3.579.2.593 1986 Unknown [id number] 2.16.8 40.1.994768.3.579.2.1245 1986 Unknown [id number] 2.16.84 0.1.936733.3.579.2.1286 1986 Unknown [id number] 2.16.84 0.1.962835.3.579.2.6 1986 Unknown [id number] 2.16.84 0.1.727296.3.579.2.1259 1986 Unknown [id number] 2.16.84 0.1.311941.3.579.2.1259 1986 Unknown [id number] 2.16.840 .1.613852.3.579.2.1259 1986 Unknown [id number] 2.16.840 .1.359953.3.579.2.9 1986 Unknown [id number] 2.16.8 40.1.928862.3.579.2.1286 1986 Unknown [id number] 2.16.8 40.1.167790.3.579.2.1286 1986 Unknown [id number] 2.16.8 40.1.640545.3.579.2.128 1986 Unknown [id number] 2.16.8 40.1.968303.3.579.2.128 1986 Unknown [id number] 2.16.8 40.1.402645.3.579.2.128 1986 Unknown [id number] 2.16.8 40.1.192681.3.579.2.1286 1986 Unknown [id number] 2.16.8 40.1.354521.3.579.2.1286 1986 Unknown [id number] 2.16.8 40.1.450384.3.579.2.1286 1986 Unknown [id number] 2.16.8 40.1.438677.3.579.2.1286 1986 Unknown [id number] 2.16.8 40.1.540338.3.579.2.1286 1986 Unknown [id number] 2.16.8 40.1.109432.3.579.2.1286 1986 Unknown [id number] 2.16.8 40.1.496701.3.579.2.1286 1959 Self-pay 1959 Unknown [id number] Unknown [id number] 2.16.84 0.1.756883.3.579.2.593 Social History Date Type Detail Facility Unknown if ever smoked [employer] Other Start: 05-30-2020 End: 04-08-2023 [facility]igned [facility] Work Phone: Start: 1986 Sex Assigned At Not on file [facility] Work Phone: Start: 03-14-2023 End: 04-08-2023 Exposure to SARS-CoV-2 (event) Not sure [facility] Start: 04-08-2023 End: 06-29-2023 Tobacco smoking status NHIS Never smoked tobacco [facility] Start: 04-08-2023 End: 06-29-2023 Tobacco use and exposure Smokeless tobacco non-user [facility] Work Phone: Start: 04-08-2023 Alcohol intake Ex-drinker (finding) [facility] Work Phone: Start: 05-30-2020 End: 04-08-2023 History of Social function [facility] Start: 11-26-2018 End: 07-30-2023 Alcohol intake Current drinker of alcohol (finding) [facility] Housing Instability Unknown [facility] Start: 11-02-2017 Alcohol Comment socially [facility] Start: 05-19-2023 End: 06-11-2023 Alcohol intake [...] Healthcare History of tobacco use Passive smoker [facility] Start: 06-29-2023 Alcohol Comment 0-1 per month [facility] Medical Equipment Procedure Code Equipment Code Equipment Origin al Text Equipment Identifier Dates Mesh [id number] Flt Vcl Abs Wvn Srg Hrn Repr - [id number] Start: 07-06-2023 Goals Date Patient Goal [...] 38 y.o. female who is s/p a CJG-DCW-faenz of adhesions, endometriosis resection on 07/06/23. Pathology: [...] 07/06/2023 Performed by Luís Andres MD at [facility] LYSIS OF ADHESIONS X 60 MIN N/A 07/06/2023 Performed by Luís Andres MD at [facility] RESECTION MASS PERITONEAL/ SOFT TISSUE MASS REMOVAL POSTERIOR RECTUS SHEATH/EXCISIONAL DEBRIDMENT N/A 07/06/2023 Performed by Luis Antonio Flynn MD at [facility] SALPINGO OOPHORECTOMY Bilateral 07/06/2023 Performed by Luís Andres MD at [facility] ENDOMETRIAL ABLATION 2013 ESOPHAGOGASTRODUODENOSCOPY 2010 HYSTERECTOMY 04/16/2015 partial LITHOTRIPSY 2013 TONSILLECTOMY 2012 Past Medical History: Diagnosis Date Anxiety Dental disease one chipped tooth, right upper very back of mouth Depression Dizziness Endometriosis GERD (gastroesophageal reflux disease) Hypertension Kidney stones Pelvic pain PONV (postoperative nausea and vomiting) Pulmonary embolism ([facility]) 11/29/2010 during Sciatica Sinus tachycardia Visual impairment [...] endometriosis. Re-evaluate with our team or benign hospitality manager in 6 months. May consider transdermal estrogen, [...] *This note was completed using a voice rehab assistant system. Every effort was made to ensure accuracy. However, inadvertent computerized rehab assistant errors may be present. .Total time spent [...] Wang 08/05/23 1126 documented in this encounter [facility] 08-03-2023 Miscellaneous Notes Spoke with patient to move up her appt on 08/05/23 to 11am, patient confirmed. documented in this encounter [facility] 08-03-2023 Telephone encounter Note Spoke with patient to move up her appt on 08/05/23 to 11am, patient confirmed. [facility] 07-30-2023 History of Presen t illness Narrative [...] 5) follow-up with six-month Isaac Robin PA-C [facility] General Surgery [address] [facility] [address] [place] [address] SEBASTIAN Romero 07/30/23 1454 documented in this encounter [facility] 07-22-2023 History of Presen t illness Narrative Subjective: Gissel Del Rosario female who is 38 y.o. female who is s/p a LIC-DMU-fudeg of adhesions, endometriosis resection on 07/06/23. Pathology: [...] 07/06/2023 Performed by Luís Andres MD at [facility] LYSIS OF ADHESIONS X 60 MIN N/A 07/06/2023 Performed by Luís Andres MD at [facility] RESECTION MASS PERITONEAL/ SOFT TISSUE MASS REMOVAL POSTERIOR RECTUS SHEATH/EXCISIONAL DEBRIDMENT N/A 07/06/2023 Performed by Luis Antonio Flynn [facility] O[facility] Bilateral 07/06/2023 Performed by Luís Andres MD at [facility] ENDOMETRIAL ABLATION 2014 ESOPHAGOGASTRODUODENOSCOPY 2010 HYSTERECTOMY 04/16/2015 partial LITHOTRIPSY 2013 TONSILLECTOMY 2012 Past Medical History: Diagnosis Date Anxiety Dental disease one chipped tooth, right upper very back of mouth Depression Dizziness Endometriosis GERD (gastroesophageal reflux disease) Hypertension Kidney stones Pelvic pain PONV (postoperative nausea and vomiting) Pulmonary embolism ([facility]) 11/29/2010 during Sciatica Sinus tachycardia Visual impairment [...] endometriosis. Re-evaluate with our team or benign hospitality manager in 6 months. May consider transdermal estrogen, [...] *This note was completed using a voice rehab assistant system. Every effort was made to ensure accuracy. However, inadvertent computerized rehab assistant errors may be present. .Total time spent [...] Wang 07/22/23 0933 documented in this encounter [facility] 07-13-2023 Miscellaneous Notes Patient called in with [...] scheduled for 07/21. documented in this encounter [facility] 07-13-2023 Telephone encounter Note Patient called in [...] questions. Post op appt scheduled for 07/21. [facility] 06-29-2023 Instructions Formatting of th is note might be different from the original. Your surgery/procedure is scheduled at [facility] on 07/06/2023 at 10 am Arrival Time 8 am [facility] Address: [address] [place] [address] in Parking lot located on [facility]. Report to the Entrance B. Check in at the information desk the surgery. The waiting room located on the second floor. If you have any questions prior to surgery, please call Pre-Admission Clinic at [phone] between 7:30 am and 4:30 pm Thursday through Thursday. If you have questions the morning of surgery, please call the Pre-op Department at [phone]. Notify your SURGEON if you develop any [...] would like to schedule therapy at a [facility] facility, please call [phone] ([phone]). Do not use lotions, creams, powders, perfume, make up, cologne or after-shaves day of surgery. Remove ALL jewelry including wedding rings, body piercings,hair extensions that contain metal, nail surinamese, make-up, and contact lens. You may brush [...] RIGHTS AND RESPONSIBILITIES As a patient at [facility], you have the right to: Receive medical care and be informed of who is taking care of you Be treated with dignity and respect Have a family member/artist representative of choice and your physician notified of your admission Receive information and actively participate in decisions about your care and treatment Refuse care, treatment and services Decide who may provide your support and speak for you Access taoism and spiritual services Participate in ethical issues [...] of hospital charges and payment methods Patient/patient artist representative responsibilities are to: Provide information about health status to facilitate care, treatment and services Follow the treatment, plan, keep appointments and speak up when you do not understand the plan Respect the rights of other patients and healthcare personnel Follow organizational rules and regulations that support quality care and a safe environment Fulfill financial obligations as promptly as possible [facility] 06-29-2023 Miscellaneous Notes Your surgery/procedure is scheduled at [facility] on 07/06/2023 at 10 am Arrival Time 8 am [facility] Address: [address] [place] [address] Park in Parking lot located on [facility]. Report to the Entrance B. Check in at the information desk the surgery. The waiting room located on the second floor. If you have any questions prior to surgery, please call Pre-Admission Clinic at [phone] between 7:30 am and 4:30 pm Thursday through Thursday. If you have questions the morning of surgery, please call the Pre-op Department at [phone]. Notify your SURGEON if you develop any [...] would like to schedule therapy at a [facility] facility, please call [phone] ([phone]). Do not use lotions, creams, powders, perfume, make up, cologne or after-shaves day of surgery. Remove ALL jewelry including wedding rings, body piercings,hair extensions that contain metal, nail surinamese, make-up, and contact lens. You may brush [...] RIGHTS AND RESPONSIBILITIES As a patient at [facility], you have the right to: Receive medical care and be informed of who is taking care of you Be treated with dignity and respect Have a family member/artist representative of choice and your physician notified of your admission Receive information and actively participate in decisions about your care and treatment Refuse care, treatment and services Decide who may provide your support and speak for you Access taoism and spiritual services Participate in ethical issues [...] of hospital charges and payment methods Patient/patient artist representative responsibilities are to: Provide information about [...] promptly as possible documented in this encounter [facility] 06-17-2023 History of Presen t illness Narrative [...] personal or family history of GI or gyn physician malignancies. We reviewed her imaging as well [...] procedures Referring and communicating with other health home health caregiver (not separately reported) Documenting clinical information in the electronic or other health record Luís Andres MD [facility] History of Presen t illness Narrative Associated Problem(s): Sinus tachycardia Symptoms stable with toprol and continue. 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 Associated Problem(s): Benign essential hypertension (CMS/HCC) BP remains low and stop zestoretic. Start lisinopril daily and monitor BP. Subjective Patient ID: Gissel Del Rosario is a 37 y.o. female who presents for Follow-up (1m). Follow up HTN, tachycardia, and abdominal mass. Patient continues to have abdominal pain. Seen by gyn physician and felt mass related to endometriosis in [...] scar Continued pain and follow up with gyn physician for surgery. documented in this encounter [facility] 06-03-2023 History of Presen t illness Narrative [...] personal or family history of GI or gyn physician malignancies. We reviewed her imaging as well [...] procedures Referring and communicating with other health home health caregiver (not separately reported) Documenting clinical information in the electronic or other health record Luís Andres MD documented in this encounter [facility] 05-20-2023 Miscellaneous Notes Left VM to schedule SURVEYOR INSTRUMENT ASSISTANT appointment with gyn physician onc. Requested US and CT images be pushed via PACS from [facility]. documented in this encounter [facility] 05-20-2023 Telephone encounter Note Left VM to schedule SURVEYOR INSTRUMENT ASSISTANT appointment with gyn physician onc. Requested US and CT images be pushed [facility] History of Presen t illness Narrative [...] was negative but is to see a environmental protection inspector to further work this up as well. Jeremy Jang MD documented in this encounter [facility] Work Phone: 03-24-2023 History of Presen t [...] hernia specialists. --I will discuss with her hospitality manager the value of abdominal exploration for additional [...] MPH @[email or web address]@ @[email or web address]@ documented in this encounter [facility] Work Phone: 09-05-2022 Evaluation note Encounter Date [...] understanding and is agreeable with treatment plan. [employer] Other [id number] NotePROCEDURE: XR PELVIS W_OBL MIN 3 VIEWS COMPARISON: HISTORY: Disorder of sacrum FINDINGS: BONES:No fracture, acute abnormality, or significant arthropathy. SOFT TISSUES:Negative. No visible soft tissue swelling. EFFUSION:None visible. OTHER: Negative. IMPRESSION: No acute abnormality Electronically authenticated by: ASHLEY CARRANZA Date: 2021-09-28 07:58[facility]05-28-2022 NotePROCEDURE: XR TIB_FIB LT 2V COMPARISON: 07/17/2020 HISTORY: Pain in left leg FINDINGS: BONES:No acute fracture or dislocation. Stable sclerosis along the distal tibia. Enthesopathic spurring plantar calcaneus SOFT TISSUES:Negative. No visible soft tissue swelling. EFFUSION:None visible. OTHER: Negative. IMPRESSION: Stable exam, no interval change Electronically authenticated by: ASHLEY CARRANZA Date: 2021-09-28 07:56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 Endometriosis in scar of skin documented in this encounter [facility]* Diagnosis Pelvic mass- Primary Abdominal or pelvic swelling, mass or lump, unspecified site [facility] Diagnosis Preop testing- Primary Unspecified pre-operative examination [facility]* Diagnosis Encounter for postoperative care- Primary Menopausal symptoms Symptomatic menopausal or female climacteric states Acute serous otitis media, recurrence not specified, unspecified laterality documented [facility]* Diagnosis Muscle spasms of both lower extremities- Primary documented [facility] this [facility]* Diagnosis Abdominal wall mass- Primary Abdominal or pelvic swelling, mass or lump, unspecified site [facility]* Diagnosis Encounter for postoperative care- Primary Menopausal symptoms Symptomatic menopausal or female climacteric states documented in this encounter [facility] Narrative - Reported* Type Description Date Medical History HTN (hypertension) Medical History Anxiety and depression Medical History migraine headache Medical History seasonal allergies Surgical History essure Surgical History EGD Surgical History C section Surgical History hysterectomy 2015 Hospitalization History PE Hospitalization History child x3 Hospitalization History demise x1 [employer] Other InstructionsNot on filedocumented in this encounter [...] Health SystemInstructionsNot on filedocumented in this encounter [facility] (narrative)* Consultation (Routine) - Pending Review Specialty Diagnoses / Procedures Referred By Frankie t Referred To Contact General Surgery Diagnoses Pelvic mass Luís Andres MD [address] [place] [address], [address] [place] [address] [place] [address] [place] [address], [address] [place] [address] Referral ID Status Reason Start Date Expiration Date Visits Requested Visits Authorized [id number] Pending Review Specialty Services Required 06/17/2023 06/16/2024 1 1 [facility] Summary Purpose Family History No Family History [...] MR pelvis without contrast Luís Andres MD [address] [place] [address], [address] [place] [address] Referral ID Status Reason Start Date Expiration Date V isits Requested Visits Authorized [id number] Pending Review 06/03/2023 06/02/2024 1 1 Additional Source Comments INFORMATION SOURCE (unrecogn ized section and content) DATE CREATED AUTHOR 05/01/2022 [facility] DATE CREATED AUTHOR AUTHOR'S ORGANIZ ATION 08/10/2022 [facility] DATE CREATED AUTHOR AUTHOR'S ORGANIZ ATION 03/26/2023 [facility] DATE CREATED AUTHOR AUTHOR'S ORGANIZ ATION 05/24/2023 [facility] DATE CREATED AUTHOR AUTHOR'S ORGANIZ ATION 06/13/2023 [facility] DATE CREATED AUTHOR AUTHOR'S ORGANIZ ATION 06/18/2023 [facility] DATE CREATED AUTHOR AUTHOR'S ORGANIZ ATION 07/11/2023 [facility] DATE CREATED AUTHOR AUTHOR'S ORGANIZ ATION 09/27/2023 [facility] REASON FOR VISIT (unrecogniz ed section and content) Reason Comments New Patient Visit Reason Comments Endometriosis Specialty Diagnoses / Procedures Referred By Contchacorta t Referred To Contact General Surgery Diagnoses Endometrioma Vu Juarez MD [facility] [address] [facility] Department of Surgery-Surgical Oncology [place] [phone] [place] [address] [facility] of [facility]-[place] [phone] Referral ID Status Reason Start Date Expiration Date Visits Requested Visits Authorized [id number] Authorized Specialty Services Required 3 03/30/2024 1 [...] Care Teams (unrecognized sec tion and content) [employer] Network Architect Relationship Specialty Start Date End Date Joseph Sotelo MD PCP - General Family Medicine 03/18/23 Ethernet Network Architect Relationship Specialty Start Date End Date Joseph Sotelo MD [address] [place] [address] PCP - General Family Medicine 04/02/23 Ethernet Network Architect Relationship Specialty Start Date End Date Joseph Sotelo MD [address] [place] [address] PCP - General 01/29/17 Ethernet Network Architect Relationship Specialty Start Date End Date Joseph Sotelo MD [address] [place] [facility] [place] [address] PCP - General 01/29/17 Ethernet Network Architect Relationship Specialty Start Date End Date Joseph Sotelo MD PCP - General Cardiology 10/15/22 Ethernet Network Architect Relationship Specialty Start Date End Date Joseph Sotelo MD PCP - General Cardiology 10/15/22 [employer] Network Architect Relationship Specialty Start Date End Date Joseph Sotelo MD [address] [place] [facility] [place] [address] PCP - General 01/29/17 Ethernet Network Architect Relationship Specialty Start Date End Date Joseph Sotelo MD [address] [place] [place] [address] PCP - General 01/29/17 [employer] Network Architect Relationship Specialty Start Date End Date Joseph Sotelo MD [address] [place] [address] PCP - General 01/29/17 Ethernet Network Architect Relationship Specialty Start Date End Date Joseph Sotelo MD [address] [place] [address] PCP - General 01/29/17 Ethernet Network Architect Relationship Specialty Start Date End Date Joseph Sotelo MD [address] [place] [address] PCP - General 01/29/17 Ethernet Network Architect Relationship Specialty Start Date End Date Joseph Sotelo MD [address] [place] [address] PCP General 01/29/17 Ethernet Network Architect Relationship Specialty Start Date End Date Joseph Sotelo MD [address] [place] [address] PCP [facility] 01/29/17 Ethernet Network Architect Relationship Specialty Start Date End Date Joseph Sotelo MD [address] [place] [address] [facility] 01/29/17 Ethernet Network Architect Relationship Specialty Start Date End Date Joseph Sotelo MD [address] [place] [address] [facility] 01/29/17 FOR RECORDS PERTAINING TO PATIENTS WHO [...] BE BASED ON THE PRIMARY CLINICAL RECORDS. [facility] [employer] [facility]. provides no warranty or guarantee of the accuracy or completeness of information in this document.
[2023-12-21 21:48] VITALS: BP 162/92; PULSE 105; TEMP 37.7; O2SAT 100
--- NOTE | 2023-12-21 21:58 | ED.ABDPAIN1 ---
HPI - Abdominal Pain General Chief Complaint: Abdominal Pain Stated Complaint: Abdominal Pain Time Seen by Provider: 12/21/23 21:51 Source: patient Mode of arrival: walk-in Limitations: no limitations History of Present Illness HPI narrative: 38-year-old female presents for left flank and abdominal pain. She was here last night and diagnosed with a ureteral stone and hydronephrosis and constipation. She drank a bottle of magnesium citrate but did not have a bowel movement. No fever. The pain is severe and continuous now. Related Data Home Medications ?Medication ?Instructions ?Recorded ?Confirmed atenolol 25 mg tablet 25 mg PO DAILY 02/24/23 12/21/23 cholecalciferol (vitamin D3) 50 2,000 unit PO DAILY 02/24/23 02/27/23 mcg (2,000 unit) tablet duloxetine 60 mg capsule,delayed 60 mg PO DAILY 02/24/23 02/27/23 release omeprazole 40 mg capsule,delayed 40 mg PO DAILY 02/24/23 02/27/23 release ondansetron 4 mg disintegrating 4 mg translingual Q6H PRN nausea 02/24/23 02/27/23 tablet and vomiting oxcarbazepine 300 mg tablet 300 mg PO DAILY 02/24/23 12/21/23 semaglutide 0.25 mg or 0.5 mg (2 0.25 mg subcut QWEEK 02/24/23 02/27/23 mg/3 mL) subcutaneous pen injector (Ozempic) topiramate 50 mg tablet 50 mg PO DAILY 02/24/23 12/21/23 lisinopril-hydrochlorothiazide .ROUTE 04/05/23 lisinopril 10 mg tablet 10 mg PO DAILY 12/21/23 12/21/23 omeprazole 20 mg capsule,delayed 20 mg PO DAILY 12/21/23 12/21/23 release Previous Rx's ?Medication ?Instructions ?Recorded hydrocodone 5 mg-acetaminophen 325 1 tab PO Q6H PRN pain #14 tabs 02/24/23 mg tablet ketorolac 10 mg tablet 10 mg PO Q8H PRN pain #14 tabs 02/24/23 ondansetron 4 mg disintegrating 4 mg PO Q6H PRN nausea and 02/24/23 tablet vomiting #14 tabs tamsulosin 0.4 mg capsule (Flomax) 0.4 mg PO DAILY #10 caps 02/24/23 ondansetron HCl 4 mg tablet 4 mg PO Q6H PRN nausea and 04/05/23 vomiting #12 tabs potassium chloride 20 mEq oral 40 meq PO DAILY 3 days #6 ea 04/05/23 packet cephalexin 500 mg capsule 500 mg PO TID 7 days #21 caps 12/21/23 hydrocodone 5 mg-acetaminophen 325 1 tab PO Q6H PRN pain 5 days #20 12/21/23 mg tablet tabs ondansetron 4 mg disintegrating 4 mg PO Q6H PRN nausea and 12/21/23 tablet vomiting #20 tabs tamsulosin 0.4 mg capsule (Flomax) 0.4 mg PO DAILY #7 caps 12/21/23 Allergies Allergy/AdvReac Type Severity Reaction Status Date / Time No Known Drug Allergies Allergy Verified 12/21/23 21:52 Review of Systems ROS Narrative A ten point review of systems is negative except as noted above. [facility] Medical History (Updated 12/22/23 @ 01:13 by Bam Jean-Baptiste MD) Migraines ?G43.909 - Migraine, unspecified, not intractable, without status migrainosus (ICD-10) Depression ?F32.A - Depression, unspecified (ICD-10) HTN (hypertension) ?I10 - Essential (primary) hypertension (ICD-10) DVT (deep venous thrombosis) ?I82.409 - Acute embolism and thrombosis of unspecified deep veins of unspecified lower extremity (ICD-10) IBS (irritable bowel syndrome) ?K58.9 - Irritable bowel syndrome without diarrhea (ICD-10) Renal lithiasis ?N20.0 - Calculus of kidney (ICD-10) Abdominal wall mass of left lower quadrant ?R19.04 - Left lower quadrant abdominal swelling, mass and lump (ICD-10) Surgical History (Updated 02/27/23 @ 13:55 by Alecia Fine) H/O ultrasound guided needle biopsy ?Z98.890 - Other specified postprocedural states (ICD-10) H/O colonoscopy ?Z98.890 - Other specified postprocedural states (ICD-10) History of esophagogastroduodenoscopy (EGD) ?Z98.890 - Other specified postprocedural states (ICD-10) History of endometrial ablation ?Z98.890 - Other specified postprocedural states (ICD-10) History of tonsillectomy ?Z90.89 - Acquired absence of other organs (ICD-10) History of hysterectomy ?Z90.710 - Acquired absence of both cervix and uterus (ICD-10) Social History Smoking status: Never smoker Exam Narrative Exam Narrative: Nurses note and vital signs reviewed and patient is not hypoxic. General: The patient appears uncomfortable. She is lying on her side. Skin: Warm, dry, no pallor noted. There is no rash noted. Head: Normocephalic, atraumatic Eye: Normal conjunctiva, no drainage Ears, Nose, Mouth, and Throat: oral mucosa is moist. Nares patent. Mouth without vesicles. Ear canals patent. Tm's without Erythema Cardiovascular: Regular Rate and Rhythm Respiratory: Patient is in no distress, no accessory muscle use, lungs are clear to auscultation, no wheezing, rales or rhonchi Back: non-tender, no CVA tenderness bilaterally to percussion. GI: Soft and Musculoskeletal: The patient has no evidence of calf tenderness, no pitting edema, symmetrical pulses noted bilaterally Neurological: A&O normal speech Psychiatric: Cooperative, tearful Constitutional Vital Signs, click to edit/add: Last Vital Signs Temp 99.8 F 12/21/23 21:48 Pulse 74 12/21/23 23:52 Resp 18 12/21/23 23:52 BP 141/96 H 12/21/23 23:52 Pulse Ox 100 12/21/23 23:52 O2 Del Method Room Air 12/21/23 23:52 Course Vital Signs Vital signs: Vital Signs Temperature 99.8 F 12/21/23 21:48 Pulse Rate 105 H 12/21/23 21:48 Respiratory Rate 20 12/21/23 21:48 Blood Pressure 162/92 H 12/21/23 21:48 Pulse Oximetry 100 12/21/23 21:48 Oxygen Delivery Method Room Air 12/21/23 21:48 Temperature 99.8 F 12/21/23 21:48 Pulse Rate 74 12/21/23 23:52 Respiratory Rate 18 12/21/23 23:52 Blood Pressure 141/96 H 12/21/23 23:52 Pulse Oximetry 100 12/21/23 23:52 Oxygen Delivery Method Room Air 08/19/24 23:52 MDM - Abdominal Pain MDM Narrative Medical decision making narrative: Blood work is nonspecific. She had multiple episodes of diarrhea and is now feeling improved. I suspect that part of her pain is constipation in part is of a kidney stone and hydronephrosis. She is able to be discharged home and will follow-up with her urologist. Treatment diagnosis and follow-up were discussed with the patient. Differential Diagnosis Differential diagnosis: Likely abdominal pain, calculus of kidney and constipation Lab Data Attestation: I reviewed the patient's lab results. Labs: Lab Results 12/21/23 12/21/23 Range/Units 22:05 22:34 WBC 11.6 H (4.0-11.0) 10^3/uL RBC 4.74 (4.20-5.40) 10^6/uL Hgb 13.6 (12.0-16.0) g/dL Hct 41.7 (36.0-48.0) % MCV 88.0 (81.0-99.0) fL MCH 28.7 (26.7-34.0) pg MCHC 32.6 (29.9-35.2) g/dL RDW 12.4 (11.0-15.0) % Plt Count 289 (150-450) 10^3/uL MPV 8.5 L (9.5-13.5) fL Neut % (Auto) 66.7 (43.0-75.0) % Lymph % (Auto) 22.0 (20.5-60.0) % [place] % (Auto) 9.2 (1.7-12.0) % Eos % (Auto) 1.3 (0.9-7.0) % Baso % (Auto) 0.5 (0.2-2.0) % Neut # (Auto) 7.7 H (1.4-6.5) 10^3/uL Lymph # (Auto) 2.6 (1.2-3.8) 10^3/uL [place] # (Auto) 1.1 H (0.3-0.8) 10^3/uL Eos # (Auto) 0.2 (0.0-0.7) 10^3/uL Baso # (Auto) 0.1 (0.0-0.1) 10^3/uL Abs Immat Gran (auto) 0.03 (0.00-0.03) 10^3/uL Imm/Tot Granulo (auto) 0.3 (0.0-0.5) % Sodium 143 (136-145) mmol/L Potassium 4.1 (3.5-5.1) mmol/L Chloride 106 (98-107) mmol/L Carbon Dioxide 31.3 (21.0-32.0) mmol/L Anion Gap 9.8 BUN 16.0 (7.0-18.0) mg/dL Creatinine 1.49 H (0.55-1.02) mg/dL Est GFR ( Amer) 48 L (>=60) Est GFR (Non-Af Amer) 39 L (>=60) BUN/Creatinine Ratio 10.7 Glucose 100 (74-106) mg/dL Calcium 9.1 (8.5-10.1) mg/dL Urine Color Lt. yellow (YELLOW) Urine Clarity Clear (CLEAR) Urine pH 6.0 (5.0-9.0) Ur Specific [place] 1.025 (1.005-1.025) Urine Protein Negative (NEG/TRACE) mg/dL Urine Glucose (UA) Negative (NEGATIVE) mg/dL Urine Ketones 15 A (NEGATIVE) mg/dL Urine Occult Blood Moderate A (NEGATIVE) Urine Nitrite Negative (NEGATIVE) Urine Bilirubin Negative (NEGATIVE) Urine Urobilinogen 0.2 (0.2-1.0) EU/dL Ur Leukocyte Esterase Trace A (NEGATIVE) Urine RBC 5-10 A (0-2) #/HPF Urine WBC 2-5 A (NONE SEEN) #/HPF Ur Squamous Epith Cells Few A (NONE/RARE) #/LPF Urine Crystals Seen A (None Seen) #/HPF Amorphous Sediment Few Urine Bacteria Moderate A (NONE SEEN) #/HPF Urine Casts None seen (NONE SEEN) #/LPF Urine Mucus None seen (NONE SEEN) Ur Culture Indicated? Yes Discharge Plan Discharge Stand Alone Forms: Portal Instructions Chief Complaint: Abdominal Pain Clinical Impression: Kidney stone, Constipation Patient Disposition: Home, Self-Care Time of Disposition Decision: 01:13 Condition: Good Mode of Transportation: Private Vehicle Prescriptions / Home Meds: No Action lisinopril-hydrochlorothiazide .ROUTE ondansetron HCl 4 mg tablet 4 mg PO Q6H PRN (Reason: nausea and vomiting) Qty: 12 0RF potassium chloride 20 mEq packet 40 meq PO DAILY 3 Days Qty: 6 0RF lisinopril 10 mg tablet 10 mg PO DAILY omeprazole 20 mg capsule,delayed release(DR/EC) 20 mg PO DAILY tamsulosin [Flomax] 0.4 mg capsule 0.4 mg PO DAILY Qty: 7 0RF hydrocodone-acetaminophen 5-325 mg tablet 1 tab PO Q6H PRN (Reason: pain) 5 Days Qty: 20 0RF cephalexin 500 mg capsule 500 mg PO TID 7 Days Qty: 21 0RF ondansetron 4 mg tablet,disintegrating 4 mg PO Q6H PRN (Reason: nausea and vomiting) Qty: 20 0RF atenolol 25 mg tablet 25 mg PO DAILY Hold Instructions: changed cholecalciferol (vitamin D3) 50 mcg (2,000 unit) tablet 2,000 unit PO DAILY duloxetine 60 mg capsule,delayed release(DR/EC) 60 mg PO DAILY omeprazole 40 mg capsule,delayed release(DR/EC) 40 mg PO DAILY ondansetron 4 mg tablet,disintegrating 4 mg translingual Q6H PRN (Reason: nausea and vomiting) Ozempic 0.25 mg or 0.5 mg (2 mg/3 mL) pen injector 0.25 mg subcut QWEEK Rx Instructions: for 4 weeks, Saturdays topiramate 50 mg tablet 50 mg PO DAILY oxcarbazepine 300 mg tablet 300 mg PO DAILY hydrocodone-acetaminophen 5-325 mg tablet 1 tab PO Q6H PRN (Reason: pain) Qty: 14 0RF ketorolac 10 mg tablet 10 mg PO Q8H PRN (Reason: pain) Qty: 14 0RF tamsulosin [Flomax] 0.4 mg capsule 0.4 mg PO DAILY Qty: 10 0RF ondansetron 4 mg tablet,disintegrating 4 mg PO Q6H PRN (Reason: nausea and vomiting) Qty: 14 0RF Print Language: Albanian Instructions: Constipation (ED), Kidney Stones (ED) Additional Instructions: Take MiraLAX for constipation. Follow-up with your urologist of choice. Referrals: Joseph Crawford MD [Primary Care Provider] - 1 week
[2023-12-21 22:11] LABS: Basophils Absolute Auto 0.1 10^3/uL (0.0-0.1); Basophils Percent Auto 0.5 % (0.2-2.0); Eosinophils Absolute Auto 0.2 10^3/uL (0.0-0.7); Eosinophils Percent Auto 1.3 % (0.9-7.0); Hematocrit 41.7 % (36.0-48.0); Hemoglobin 13.6 g/dL (12.0-16.0); Immature Granulocytes Abs Auto 0.03 10^3/uL (0.00-0.03); Immature Granulocytes Pct Auto 0.3 % (0.0-0.5); Lymphocytes Absolute Auto 2.6 10^3/uL (1.2-3.8); Mean Corpuscular HGB Conc 32.6 g/dL (29.9-35.2); Mean Corpuscular Hemoglobin 28.7 pg (26.7-34.0); Mean Platelet Volume 8.5 fL (9.5-13.5); Monocytes Absolute Auto 1.1 10^3/uL (0.3-0.8); Monocytes Percent Auto 9.2 % (1.7-12.0); Neutrophils Absolute Auto 7.7 10^3/uL (1.4-6.5); Neutrophils Percent Auto 66.7 % (43.0-75.0); Platelet Count 289 10^3/uL (150-450); Red Blood Count 4.74 10^6/uL (4.20-5.40); Red Cell Distribution Width 12.4 % (11.0-15.0); White Blood Count 11.6 10^3/uL (4.0-11.0)
[2023-12-21] MEDS: 0.9 % SODIUM CHLORIDE 1,000 ML 1000 ML IV (22:16)
[2023-12-21] MEDS: KETOROLAC TROMETHAMINE 30 MG/ML VIAL IVP (22:16)
[2023-12-21 22:21] LABS: Anion Gap 9.8; BUN Creatinine Ratio 10.7; Calcium 9.1 mg/dL (8.5-10.1); Carbon Dioxide 31.3 mmol/L (21.0-32.0); Chloride 106 mmol/L (98-107); Estimated GFR (African America 48 (>=60); Estimated GFR (Non-African Ame 39 (>=60); Glucose 100 mg/dL (74-106); Potassium 4.1 mmol/L (3.5-5.1); Sodium 143 mmol/L (136-145)
[2023-12-21] MEDS: ONDANSETRON PF 4 MG/2 ML VIAL IV (22:30)
[2023-12-21 22:38] LABS: Bilirubin Urine NEGATIVE (NEGATIVE); Blood Urine MODERATE (NEGATIVE); Clarity Urine CLEAR (CLEAR); Color Urine LT. YELLOW (YELLOW); Glucose Urine UA NEGATIVE (NEGATIVE); Ketones Urine 15 mg/dL (NEGATIVE); Leukocyte Esterase Urine TRACE (NEGATIVE); Nitrite Urine NEGATIVE (NEGATIVE); Protein Urine NEGATIVE (NEG/TRACE); Specific Gravity Urine 1.025 (1.005-1.025); Urobilinogen Urine 0.2 EU/dL (0.2-1.0)
[2023-12-21 22:46] LABS: Amorphous Sediment Urine FEW; Bacteria Urine MODERATE #/HPF (NONE SEEN); Cast Seen? NONE SEEN #/LPF (NONE SEEN); Crystals Seen? Seen #/HPF (None Seen); Mucus Urine NONE SEEN (NONE SEEN); Squamous Epithelial Cell Urine FEW #/LPF (NONE/RARE); Urine Culture Indicated YES
[2023-12-21] MEDS: MORPHINE SULFATE 4 MG/ML VIAL IV (23:14)
[2023-12-21 23:52] VITALS: BP 141/96; PULSE 74; O2SAT 100
[2023-12-22] MEDS: MORPHINE SULFATE 4 MG/ML VIAL IV
[2023-12-22 01:22] VITALS: BP 128/86; PULSE 94; O2SAT 98
== END 2023-12-22 01:32 | disposition home or self-care (01) ==
PROVIDERS: Emergency Provider Emergency Medicine; PCP Family Medicine
DX: K59.00 Constipation, unspecified (principal); N20.0 Calculus of kidney
CPT/HCPCS: 36415; 80048; 81001; 85025; 87086; 96374; 96375; 96376; 99285; J1885; J2270; J2405

== ENCOUNTER 2023-12-22 11:58 | Outpatient (OUT) | payer BC, SELFPAY ==
--- NOTE | 2023-12-22 12:04 | XR_ITS ---
The [address] [address] Patient Name: OTTO DEL ROSARIO MRN: [id number] date: 1985 Sex: F Assigned Patient Location: LAB Current Patient Location: Accession/Order Number: [id number] Exam Date: 12/22/2023 12:17 Report Date: 12/23/2023 06:59 At the request of: HAYDEE MENDEZ Procedure: XR abdomen 1V EXAMINATION: XR abdomen 1V HISTORY: Kidney Stone , constipation COMPARISON: CT abdomen pelvis 12/21/2023, XR abdomen 12/21/2023 FINDINGS: KIDNEY/URETER - RIGHT: No visible renal or ureteral calcifications. KIDNEY/URETER - LEFT: Multiple stones projecting over the kidney. PELVIS: Numerous pelvic calcifications which appear grossly stable suggesting phleboliths. BOWEL: No abnormal dilation or deviation. BONES: No acute abnormality. OTHER: Negative. No abnormal gaseous collections. XR/XR abdomen 1V IMPRESSION: 1. Left nephrolithiasis. 2. Numerous pelvic calcifications. A distal left ureteral stone cannot be completely excluded. Consider follow-up CT abdomen and pelvis if clinical suspicion remains. Electronically authenticated by: BRIAN SINGER Date: 12/23/2023 06:59
--- OUTSIDE RECORDS SUMMARY | 2023-12-22 12:11 | XMS_ITS | CCD ---
Author Organization [facility] Care Team Providers Care Flatwork Ironer Name Role Phone JOSEPH SOTELO Primary Care [...] Unavailable Naderer Joseph LYLES Primary Care Provider [phone] LUÍS ANDRES Attending Unavailable NADERER, JOSEPH Referring [...] by mouth every six hours HYDROcodone-acetam inophen ([place]) 5-325 MG tablet Take 1 tablet by [...] Active docusate sodium 50 mg / sennosides, long term 8.6 mg oral tablet (6 sources) Start: [...] mg/3 mL) pen injector polyethylene glycol 3350 96754 mg powder for oral solution (15 sources) [...] Roberson MD on 09/26/2023 9:30 AM Normal [facility] XR HIP LT 2-3 VIEWS W [...] Menchaca MD on 09/26/2023 6:59 PM Normal [facility] BASIC METABOLIC PANLon 07-05 Anion gap [Moles/Vol] 7 mmol/L Normal 5-15 [facility] Comment on above: Performed By: #### C BCA, BMP #### [facility] ([id number]) [address], [address] [place] [address] Calcium [Mass/Vol] 7.8 mg/dL Low 8.5-10.5 [facility] Comment on above: Performed By: #### C BCA, BMP #### [facility] ([id number]) [address], [address] [place] [address] Chloride [Moles/Vol] 111 mmol/L High 98-109 [facility] Comment on above: Performed By: #### C BCA, BMP #### [facility] ([id number]) [address] [place] [address] CO2 [Moles/Vol] 22 mmol/L Normal 22-32 [facility] Comment on above: Performed By: #### C BCA, BMP #### [facility] ([id number]) [address], [address] [place] [address] Creatinine [Mass/Vol] 0.62 mg/dL Normal 0.40-1.00 [facility] Comment on above: Result Comment: METH OD TRACEABLE TO IDMS STANDARD Performed By: #### C BCA, BMP #### [facility] ([id number]) [address], [address] [place] [address] eGFR (CKD-EPI) NON-RACE DEPENDENT >90 Normal >59 [facility] Comment on above: Result Comment: Reported eGFR is based on the CKD-EPI 2020 equation that does not use a race coefficient. Performed By: #### C BCA, BMP #### [facility] ([id number]) [address], [address] [place] [address] Glucose [Mass/Vol] 118 mg/dL High 65-99 [facility] Comment on above: Performed By: #### C BCA, BMP #### [facility] ([id number]) [address] [address] [place] [address] Potassium [Moles/Vol] 3.6 mmol/L Normal 3.5-5.0 [facility] Comment on above: Performed By: #### C BCA, BMP #### [facility] ([id number]) [address] [place] [address] Sodium [Moles/Vol] 140 mmol/L Normal 134-146 [facility] Comment on above: Performed By: #### C BCA, BMP #### [facility] ([id number]) [address] [address] Urea nitrogen [Mass/Vol] 10 mg/dL Normal 5-23 [facility] Comment on above: Performed By: #### C BCA, BMP #### [facility] ([id number]) [address] [address] [place] [address] CBC AND AUTO DIFFon 07-06-19 24 ABSOLUTE BASOPHIL 0.0 X10E9/L Normal 0.0-0.2 [facility] Comment on above: Performed By: #### C BCA, BMP #### [facility] ([id number]) [address] [place] [address] ABSOLUTE NEUTROPHIL 12.5 X10E9/L High 1.5-6.6 [facility] Comment on above: Performed By: #### C BETTY, BMP #### [facility] ([id number]) [address] [place] [address] Basophils/100 WBC (Bld) 0.1 % Normal [facility] Comment on above: Performed By: #### C BETTY, BMP #### [facility] ([id number]) [address] [place] [address] Eosinophils (Bld) [#/Vol] 0.0 10*3/uL Normal 0.0-0.4 [facility] Comment on above: Performed By: #### C BETTY, BMP #### [facility] ([id number]) [address] [place] [address] Eosinophils/100 WBC (Bld) 0.0 % Normal [facility] Comment on above: Performed By: #### C BETTY, BMP #### [facility] ([id number]) [address] [place] [address] Erythrocyte distribution width (RBC) [Ratio] 14.1 % Normal 11.5-15.0 [facility] Comment on above: Performed By: #### C BETTY, BMP #### [facility] ([id number]) [address] [place] [address] Hematocrit (Bld) [Volume fraction] 38.7 % Normal 35-47 [facility] Comment on above: Performed By: #### C BETTY, BMP #### [facility] ([id number]) [address] [place] [address] Hemoglobin (Bld) [Mass/Vol] 13.0 g/dL Normal 11.7-15.5 [facility] Comment on above: Performed By: #### C BCA, BMP #### [facility] ([id number]) [address] [place] [address] Lymphocytes (Bld) [#/Vol] 0.8 10*3/uL Low 1.0-3.5 [facility] Comment on above: Performed By: #### C BETTY, BMP #### [facility] ([id number]) [address] [place] [address] Lymphocytes/100 WBC (Bld) 5.9 % Normal [facility] Comment on above: Performed By: #### C BETTY, BMP #### [facility] ([id number]) [address] [place] [address] MCH (RBC) [Entitic mass] 29.7 pg Normal 27-34 [facility] Comment on above: Performed By: #### C BETTY, BMP #### [facility] ([id number]) [address] [place] [address] MCHC (RBC) [Mass/Vol] 33.6 g/dL Normal 32-36 [facility] Comment on above: Performed By: #### C BCA, BMP #### [facility] ([id number]) [address] [place] [address] MCV (RBC) [Entitic vol] 88 fL Normal 80-100 [facility] Comment on above: Performed By: #### C BCA, BMP #### [facility] ([id number]) [address] [place] [address] Monocytes (Bld) [#/Vol] 0.4 10*3/uL Normal 0-0.9 [facility] Comment on above: Performed By: #### C BCA, BMP #### [facility] ([id number]) [address] [place] [address] Monocytes/100 WBC (Bld) 3.3 % Normal [facility] Comment on above: Performed By: #### C BETTY, BMP #### [facility] ([id number]) [address] [place] [address] Neutrophils/100 WBC (Bld) 90.7 % Normal [facility] Comment on above: Performed By: #### C BETTY, BMP #### [facility] ([id number]) [address] [place] [address] Platelet mean volume (Bld) [Entitic vol] 6.4 fL Low 7-12 [facility] Comment on above: Performed By: #### C BETTY, BMP #### [facility] ([id number]) [address], [facility] [address] [place] [address] Platelets (Bld) [#/Vol] 349 10*3/uL Normal 150-450 [facility] Comment on above: Performed By: #### C BETTY, BMP #### [facility] ([id number]) [address] [place] [address] RBC COUNT 4.37 X10E12/L Normal 3.80-5.20 [facility] Comment on above: Performed By: #### Charity HERNÁNDEZ, BMP #### [facility] ([id number]) [address] [place] [address] WBC (Bld) [#/Vol] 13.8 10*3/uL High 4.0-11.0 [facility] Comment on above: Performed By: #### C BETTY, BMP #### [facility] ([id number]) [address] [place] [address] HCG ( test) Ql (U)o n 07-06-2023 Beta HCG ( test) Ql (U) Negative Normal NEG [facility] Comment on above: Performed By: #### 2 106-3 #### [facility] ([id number]) [address] [place] [address] Surgical Pathologyon 024 Surgical Pathology Normal [facility] Comment on above: Result Comment: [facility] [address] [place] [address] Surgical Pathology Consultation Patient Name:GISSEL DEL ROSARIO:1985 (Age: 38)Gender:FTaken:07/06/2023eported:07/10/2023hysician(s):Luís Andres M.D. ([phone])Copy To: Rec. #:[id number]: #[id number] Final Pathologic Diagnosis Bilateral fallopian tubes and [...] Out gp/07/10/2023Wagner Duncan MD Interpretation performed at [facility], [address] [place] [address], License number: [id number]. Clinical History Pelvic pain. Gross Description Received [...] each K 1 lymph node, serially sectioned (11,ss,[id number], m2) . /07/07/2023O Microscopic Findings Microscopic examination performed. Specimen(s) Received Bilateral tubes and ovaries and abdominal wall mass Fee Codes(s): 1; [address] CBC AND AUTO DIFFon 06-26-19 ABSOLUTE BASOPHIL 0.1 X10E9/L Normal 0.0-0.2 [facility] Comment on above: Performed By: #### C BCA #### [facility] ([id number]) [address] [place] [address], [facility] [address] [place] [address] ABSOLUTE NEUTROPHIL 6.4 X10E9/L Normal 1.5-6.6 [facility] Comment on above: Performed By: #### C BCA #### [facility] ([id number]) [address] [place] [address], [address] [place] [address] Basophils/100 WBC (Bld) 0.6 % Normal [facility] Comment on above: Performed By: #### C BCA #### [facility] ([id number]) [address] [place] [address] [address] [place] [address] Eosinophils (Bld) [#/Vol] 0.1 10*3/uL Normal 0.0-0.4 [facility] Comment on above: Performed By: #### C BCA #### [facility] ([id number]) [address] [place] [address] Eosinophils/100 WBC (Bld) 0.7 % Normal [facility] Comment on above: Performed By: #### C BCA #### [facility] ([id number]) [address] [place] [address] Erythrocyte distribution width (RBC) [Ratio] 14.6 % Normal 11.5-15.0 [facility] Comment on above: Performed By: #### C BCA #### [facility] ([id number]) [address] [place] [address] Hematocrit (Bld) [Volume fraction] 42.5 % Normal 35-47 [facility] Comment on above: Performed By: #### C BCA #### [facility] ([id number]) [address] [place] [address] Hemoglobin (Bld) [Mass/Vol] 14.2 g/dL Normal 11.7-15.5 [facility] Comment on above: Performed By: #### C BCA #### [facility] ([id number]) [address] [place] [address] Lymphocytes (Bld) [#/Vol] 3.7 10*3/uL High 1.0-3.5 [facility] Comment on above: Performed By: #### C BCA #### [facility] ([id number]) [address] [place] [address] Lymphocytes/100 WBC (Bld) 33.4 % Normal [facility] Comment on above: Performed By: #### C BCA #### [facility] ([id number]) [address] [place] [address] MCH (RBC) [Entitic mass] 29.3 pg Normal 27-34 [facility] Comment on above: Performed By: #### C BCA #### [facility] ([id number]) [address] [place] [address] MCHC (RBC) [Mass/Vol] 33.4 g/dL Normal 32-36 [facility] Comment on above: Performed By: #### C BCA #### [facility] ([id number]) [address] [place] [address] MCV (RBC) [Entitic vol] 88 fL Normal 80-100 [facility] Comment on above: Performed By: #### C BCA #### [facility] ([id number]) [address] [place] [address] Monocytes (Bld) [#/Vol] 0.7 10*3/uL Normal 0-0.9 [facility] Comment on above: Performed By: #### C BCA #### [facility] ([id number]) [address] [place] [address] Monocytes/100 WBC (Bld) 6.5 % Normal [facility] Comment on above: Performed By: #### C BCA #### [facility] ([id number]) [address] [place] [address] Neutrophils/100 WBC (Bld) 58.8 % Normal [facility] Comment on above: Performed By: #### C BCA #### [facility] ([id number]) [address] [place] [address] Platelet mean volume (Bld) [Entitic vol] 6.6 fL Low 7-12 [facility] Comment on above: Performed By: #### C BCA #### [facility] ([id number]) [address] [place] [address] Platelets (Bld) [#/Vol] 367 10*3/uL Normal 150-450 [facility] Comment on above: Performed By: #### C BCA #### [facility] ([id number]) [address] [place] [address] RBC COUNT 4.84 X10E12/L Normal 3.80-5.20 [facility] Comment on above: Performed By: #### C BCA #### [facility] ([id number]) [address] [place] [address] WBC (Bld) [#/Vol] 11.0 10*3/uL Normal 4.0-11.0 [facility] Comment on above: Performed By: #### C BCA #### [facility] ([id number]) [address] [place] [address] MR PELVIS WO CONTon 06-16-19 MR PELVIS [...] Rodrigez MD on 06/16/2023 11:29 AM Normal [facility] CT ABD/PELVIS WO CONon 08-05 CT [...] JAYDEN MORGAN Date: 2022-08-05 16:55 Normal [facility] QUANTIFERON TB GOLD PLUSon 0 06-18-2022 QuantiFERON Criteria Comment Normal [facility] Comment on above: Result Comment: Gagandeep tiFERON-TB [...] test. Performed By: #### Q NTTB #### [facility] [address] [place] [address] Dr. Yovanny Alcantara QuantiFERON Incubation Incubation performed. Normal [facility] Comment on above: Performed By: #### Q NTTB #### [facility] [address] [place] [address] Dr. Yovanny Alcantara QuantiFERON Mitogen Value >10.00 Normal [facility] Comment on above: Performed By: #### Q NTTB #### [facility] [address] [place] [address] Dr. Yovanny Alcantara QuantiFERON Nil Value 0.03 IU/mL Normal [facility] Comment on above: Performed By: #### Q NTTB #### [facility] [address] [place] [address] Dr. Yovanny Alcantara QuantiFERON TB1 Ag Value 0.05 IU/mL Normal [facility] Comment on above: Performed By: #### Q NTTB #### [facility] [address] [place] [address] Dr. Yovanny Alcantara QuantiFERON TB2 Ag Value 0.06 IU/mL Normal [facility] Comment on above: Performed By: #### Q NTTB #### [facility] [address] [place] [address] Dr. Yovanny Alcantara QuantiFERON-TB Gold Plus Negative Normal Negative [facility] Comment on above: Result Comment: No r esponse to M tuberculosis antigens detected. Infection with M tuberculosis is unlikely, but high risk individuals should be considered for additional testing (ATS/IDSA/CDC Clinical Practice Guidelines, 2017). The reference range is an Antigen minus Nil result of <0.35 IU/mL. Chemiluminescence immunoassay methodology Performed By: #### Q NTTB #### [facility] [address] [place] [address] Dr. Yovanny Alcantara HEPATITIS B SURFACE ANTIBODY , QUANTon 06-17-2022 Hepatitis B Surf AB Quant 3.5 mIU/mL Critically low Immunity>9.9 [facility] Comment on above: Result Comment: Stat us of Immunity Anti-HBs Level Inconsistent with Immunity 0.0 - 9.9 Consistent with Immunity >9.9 Performed By: #### H EPBSRF ####[facility] [address] [place], [place] [address]BpDr. Yovanny Alcantara MMR IMMUNITYon 06-17-2022 Mumps Abs, IgG 17.4 AU/mL Normal Immune >10.9 [facility] Comment on above: Result Comment: Nega tive <9.0 Equivocal 9.0 - 10.9 Positive >10.9 A positive result generally indicates past exposure to Mumps virus or previous vaccination. Performed By: #### M MRIMMU #### [facility] [address] [address] [address] Yovanny Alcantara Rubella Antibodies, IgG 1.68 index Normal Immune >0.99 [facility] Comment on above: Result Comment: Non- immune <0.90 Equivocal 0.90 - 0.99 Immune >0.99 Performed By: #### M MRIMMU #### [facility] [address] [address] [address] Yovanny Alcantara Rubeola Ab, IgG 108.0 AU/mL Normal Immune >16.4 [facility] Comment on above: Result Comment: Nega tive <13.5 Equivocal 13.5 - 16.4 Positive >16.4 Presence of antibodies to Rubeola is presumptive evidence of immunity except when acute infection is suspected. Performed By: #### M MRIMMU #### [facility] [address] [address] [address] Yovanny Alcantara VARICELLA IGG ABon 3 Varicella Zoster IgG 947 index Normal Immune >165 [facility] Comment on above: Result Comment: Nega tive <135 Equivocal 135 - 165 Positive >165 A positive result generally indicates exposure to the pathogen or administration of specific immunoglobulins, but it is not indication of active infection or stage of disease. Performed By: #### V ARCEL ####[facility] [address] [place], [place] [address]LcDr. Yovanny Alcantara Consent Formson 05-01-2022 Consent Forms [id number] Normal [facility] US CESIA DOP LEG RTon 12-31-19 US [...] FRANTZ COVARRUBIAS Date: 2021-12-30 10:39 Normal [facility] CBC AUTO DIFFon 12-29-2021 BASO # 0.1 103/ul Normal 0.0-0.1 [facility] Comment on above: Performed By: #### C BC #### [facility] [address] [address] [address] Yovanny Alcantara Basophils/100 WBC (Bld) 0.7 % Normal 0.2-2.0 [facility] Comment on above: Performed By: #### C BC #### [facility] [address] [address] [address] Yovanny Alcantara EO # 0.2 103/ul Normal 0.0-0.7 [facility] Comment on above: Performed By: #### C BC #### [facility] [address] [address] [address] Yovanny Alcantara Eosinophils/100 WBC (Bld) 1.3 % Normal 0.9-7.0 [facility] Comment on above: Performed By: #### C BC #### [facility] [address] [place] [address] Dr. Yovanny Alcantara Erythrocyte distribution width (RBC) [Ratio] 13.9 % Normal 11.0-15.0 [facility] Comment on above: Performed By: #### C BC #### [facility] [address] [place] [address] Dr. Yovanny Alcantara Hematocrit (Bld) [Volume fraction] 43.7 % Normal 36.0-48.0 [facility] Comment on above: Performed By: #### C BC #### [facility] [address] [place] [address] Dr. Yovanny Alcantara Hemoglobin (Bld) [Mass/Vol] 13.8 g/dL Normal 12.0-16.0 [facility] Comment on above: Performed By: #### C BC #### [facility] [address] [place] [address] Dr. Yovanny Alcantara IG # 0.11 10e3/ul Critically high 0.00-0.[address] [facility] Comment on above: Performed By: #### C BC #### [facility] [address] [place] [address] Dr. Yovanny Alcantara IG % 0.8 % Critically high 0.0-0.5 [facility] Comment on above: Performed By: #### C BC #### [facility] [address] [place] [address] Dr. Yovanny Alcantara LYMPH # 3.7 103/ul Normal 1.2-3.8 [facility] Comment on above: Performed By: #### C BC #### [facility] [address] [place] [address] Dr. Yovanny Alcantara Lymphocytes/100 WBC (Bld) 27.0 % Normal 20.5-60.0 [facility] Comment on above: Performed By: #### C BC #### [facility] [address] [place] [address] Dr. Yovanny Alcantara MANUAL DIFF REQ NO Normal [facility] Comment on above: Performed By: #### C BC #### [facility] [address] [address] [address] Yovanny Alcantara MCH (RBC) [Entitic mass] 26.7 pg Normal 26.7-34.0 [facility] Comment on above: Performed By: #### C BC #### [facility] [address] [address] [address] Yovanny Alcantara MCHC (RBC) [Mass/Vol] 31.6 g/dL Normal 29.9-35.2 [facility] Comment on above: Performed By: #### C BC #### [facility] [address] [place] [address] Dr. Yovanny Alcantara MCV (RBC) [Entitic vol] 84.5 fL Normal 81.0-99.0 [facility] Comment on above: Performed By: #### C BC #### [facility] [address] [place] [address] Dr. Yovanny Alcantara MONO # 0.9 103/ul Critically high 0.3-0.8 [facility] Comment on above: Performed By: #### C BC #### [facility] [address] [place] [address] Dr. Yovanny Alcantara Monocytes/100 WBC (Bld) 6.5 % Normal 1.7-12.0 [facility] Comment on above: Performed By: #### C BC #### [facility] [address] [place] [address] Dr. Yovanny Alcantara NEUT # 8.8 103/ul Critically high 1.4-6.5 The [facility] Comment on above: Performed By: #### C BC #### [facility] [address] [place] [address] Dr. Yovanny Alcantara Neutrophils/100 WBC (Bld) 63.7 % Normal 43.0-75.0 [facility] Comment on above: Performed By: #### C BC #### [facility] [address] [place] [address] Dr. Yovanny Alcantara Platelet mean volume (Bld) [Entitic vol] 8.3 fL Critically low 9.5-13.5 [facility] Comment on above: Performed By: #### C BC #### [facility] [address] [place], [place] [address] Dr. Yovanny Alcantara PLT 364 103/ul Normal 150-450 [facility] Comment on above: Performed By: #### C BC #### [facility] [address] [place], [place] [address] Dr. Yovanny Alcantara RBC 5.17 106/ul Normal 4.20-5.40 [facility] Comment on above: Performed By: #### C BC #### [facility] [address] [place], [place] [address] Dr. Yovanny Alcantara WBC 13.8 103/ul Critically high 4.0-11.0 [facility] Comment on above: Performed By: #### C BC #### [facility] [address] [place], [place] [address] Dr. Yovanny Alcantara CTA CHEST WO W [...] by: AMINA WU Date: 2021-12-29 01:20 Normal [facility] D-DIMERon 12-29-2021 D-DIMER 0.68 mg/L FEU Critically high <=0.59 [facility] Comment on above: Performed By: #### P TT, PT, DDIM ####[facility] [id number] [address]Dr. Yovanny Alcantara D-DIMER COMMENTS SEE BELOW Normal [facility] Comment on above: Result Comment: [...] Performed By: #### P TT, PT, DDIM ####[facility] [id number] [address]Dr. Yovanny Alcantara ER URINE PROFILEon 2 Bilirubin Ql (U) Negative Normal NEGATIVE [facility] Comment on above: Performed By: #### E RUR #### [facility] [address] [place] [address] Dr. Yovanny Alcantara Clarity (U) CLEAR Normal CLEAR [facility] Comment on above: Performed By: #### E RUR #### [facility] [address] [place] [address] Dr. Yovanny Alcanatra Color (U) YELLOW Normal YELLOW [facility] Comment on above: Performed By: #### E RUR #### [facility] [address] [place] [address] Dr. Yovanny Alcantara ERUAHMike A micrscopic examination will be performed if indicated. Normal [facility] Comment on above: Performed By: #### E RUR #### [facility] [address] [place] [address] Dr. Yovanny Alcantara Glucose Ql (U) Negative Normal NEGATIVE [facility] Comment on above: Performed By: #### E RUR #### [facility] [address] [place] [place] [address] Dr. Yovanny Alcantara Hemoglobin Ql (U) Negative Normal NEGATIVE [facility] Comment on above: Performed By: #### E RUR #### [facility] [address] [place] [address] Dr. Yovanny Alcantara Ketones Ql (U) Negative Normal NEGATIVE [facility] Comment on above: Performed By: #### E RUR #### [facility] [address] [place] [address] Dr. Yovanny Alcantara LEUKOCYTES Negative Normal NEGATIVE [facility] Comment on above: Performed By: #### E RUR #### [facility] [address] [place] [address] Dr. Yovanny Alcantara Nitrite Ql (U) Negative Normal NEGATIVE [facility] Comment on above: Performed By: #### E RUR #### [facility] [address] [place] [address] Dr. Yovanny Alcantara pH (U) 6.5 [pH] Normal 5-9 [facility] Comment on above: Performed By: #### E RUR #### [facility] [address] [place] [address] Dr. Yovanny Alcantara SPEC GRAVITY 1.020 Normal 1.005-<=1.025 [facility] Comment on above: Performed By: #### E RUR #### [facility] [address] [place] [address] Dr. Yovanny Alcantara UA PROTEIN Negative Normal NEGATIVE/ TRACE The [facility] Comment on above: Performed By: #### E RUR #### [facility] [address] [place] [address] Dr. Yovanny Alcantara UR MICRO IND NOT INDICATED Normal The [facility] Comment on above: Performed By: #### E RUR #### [facility] [address] [place] [address] Dr. Yovanny Alcantara Urobilinogen Qn (U) 0.2 {Eunice'U}/dL Normal 0.2 - 1.0 [facility] Comment on above: Performed By: #### E RUR #### [facility] [address] [place], [place] [address] Dr. Yovanny Alcantara PROTIMEon 12-29-2021 INR Coag (PPP) [Relative time] 0.94 {INR} Normal [facility] Comment on above: Performed By: #### P TT, PT, DDIM ####[facility] [id number] [place] [address]Dr. Yovanny Alcantara INR GUIDELINES SEE BELOW Normal [facility] Comment on above: Result Comment: JENNIFER RED INR: 2.0 - 3.0 CONDITIONS NOT LISTED BELOW 2.5 - 3.5 FOR PROSTHETIC HEART VALVE REPLACEMENT 2.5 - 3.5 RECURRENT THROMBOSIS Performed By: #### P TT, PT, DDIM ####[facility] [id number] [place] [address]Dr. Yoavnny Alcantara PT Coag (PPP) [Time] 10.2 s Normal 9.0-11.6 [facility] Comment on above: Performed By: #### P TT, PT, DDIM ####[facility] [id number] [place] [address]Dr. Yovanny Alcantara PTTon 12-29-2021 aPTT Coag (Bld) [Time] 28.2 s Normal 22.3-36.2 [facility] Comment on above: Performed By: #### P TT, PT, DDIM ####[facility] [id number] [place] [address]Dr. Yovanny Alcantara .QC Respiratory Panel 2.1 (B ioFire)on 11-19-2021 Internal Control-Resp Panel 2.1(BioFire) Pass [facility] Comment on above: Order Comment: Order ed by Discern. [[id number]] Performed By: #### [id number] #### [facility] (DEFAULT) [address] [place] [address] Consent Formson 11-08-2021 Consent Forms [id number] .00OTGTIFF [facility] .QC Respiratory Panel 2.1 (B ioFire)on 11-02-2021 Internal Control-Resp Panel 2.1(BioFire) Pass Normal [facility] Comment on above: Order Comment: Order ed by Mirian. [[id number]] Performed By: #### [id number] #### [facility] (DEFAULT) [address] [place] [address] XR LSPINE 2_3 VIEWSon 2021 XR LSPINE [...] by: ASHLEY CARRANZA Date: 2021-09-28 07:54 Normal [facility] US PELVIS AND TRANSVAGon US PELVIS [...] by: BRIAN SINGER Date: 2021-08-20 09:02 Normal [facility] Consent Formson 05-16-2021 Consent Forms [id number] .[id number] Normal [facility] .QC Respiratory Panel 2.1 (B ioFire)on 05-13-2021 Internal Control-Resp Panel 2.1(BioFire) Pass Normal [facility] Comment on above: Order Comment: Order ed by Discern. [[id number]] Performed By: #### [id number] #### [facility] (DEFAULT) [address] [place] [address] Vital Signs Date Time Vital Sign Value Performing Clinician Facility 08-05-2023 10:57-0400 Body height 157.5 cm Dayanara Carroll [facility] 08-05-2023 10:57-0400 Body mass index (BMI) [Ratio] 28.34 kg/m2 [facility] 08-05-2023 10:57-0400 Body temperature 97.9 [degF] [facility] Carroll [facility] 08-05-2023 10:57-0400 Body weight 70.31 kg Dayanara Carroll [facility] 08-05-2023 10:57-0400 Diastolic blood pressure 118 mm[Hg] Dayanara Carroll [facility] 08-05-2023 10:57-0400 Heart rate 115 /min Dayanara Carroll PA [facility] 08-05-2023 10:57-0400 Respiratory rate 18 /min Dayanara Carroll PA [facility] 08-05-2023 10:57-0400 SaO2% (BldA) [Mass fraction] 100 % Dayanara Carroll PA [facility] 08-05-2023 10:57-0400 Systolic blood pressure 149 mm[Hg] Dayanara Carroll [facility] 07-30-2023 14:43-0400 Body height 157.5 cm Basel Sharda PA Work Phone: [employer] 07-30-2023 14:43-0400 Body mass index (BMI) [Ratio] 29.26 kg/m2 Basel Sharda PA Work Phone: [employer] 07-30-2023 14:43-0400 Body weight 72.58 kg Basel Sharda PA [facility] 07-22-2023 08:52-0400 Body height 157.5 cm Dayanara Carroll PA Work Phone: [employer] 07-22-2023 08:52-0400 Body mass index (BMI) [Ratio] 29.26 kg/m2 Dayanara Carroll PA Work Phone: [employer] 07-22-2023 08:52-0400 Body weight 72.58 kg Dayanara Carroll PA Work Phone: [employer] 07-22-2023 08:52-0400 Diastolic blood pressure 95 mm[Hg] Dayanara Carroll PA Work Phone: [employer] 07-22-2023 08:52-0400 Heart rate 90 /min Dayanara Carroll PA Work Phone: [employer] 07-22-2023 08:52-0400 Respiratory rate 20 /min Dayanara Carroll PA Work Phone: [employer] 07-22-2023 08:52-0400 SaO2% (BldA) [Mass fraction] 100 % Dayanara Carroll PA Work Phone: [employer] 07-22-2023 08:52-0400 Systolic blood pressure 122 mm[Hg] Dayanara Carroll PA Work Phone: [employer] 06-17-2023 08:25-0500 Body height 157.5 cm Luís Andres MD Work Phone: [employer] 06-17-2023 08:25-0500 Body mass index (BMI) [Ratio] 29.29 kg/m2 Luís Andres MD Work Phone: [facility] 06-17-2023 08:25-0500 Body temperature 98.6 [degF] Luís Andres MD Work Phone: [facility] 06-17-2023 08:25-0500 Body weight 72.67 kg Luís Andres MD Work Phone: [facility] 06-17-2023 08:25-0500 Diastolic blood pressure 84 mm[Hg] Luís Andres MD Work Phone: [facility] 06-17-2023 08:25-0500 Heart rate 95 /min Luís Andres MD Work Phone: [facility] 06-17-2023 08:25-0500 SaO2% (BldA) [Mass fraction] 90 % Luís Andres MD Work Phone: [facility] 06-17-2023 08:25-0500 Systolic blood pressure 128 mm[Hg] Luís Andres MD Work Phone: [facility] 06-11-2023 15:12-0500 Body height 157.5 cm Joseph Sotelo MD Work Phone: [facility] 06-11-2023 15:12-0500 Body mass index (BMI) [Ratio] 28.53 kg/m2 Joseph Sotelo MD Work Phone: [facility] 06-11-2023 15:12-0500 Body temperature 97.81 [degF] Joseph Sotelo MD Work Phone: [facility] 06-11-2023 15:12-0500 Body weight 70.76 kg Joseph Sotelo MD Work Phone: [facility] 06-11-2023 15:12-0500 Diastolic blood pressure 60 mm[Hg] Joseph Sotelo MD Work Phone: [facility] 06-11-2023 15:12-0500 Heart rate 101 /min Joseph Sotelo MD Work Phone: [facility] 06-11-2023 15:12-0500 SaO2% (BldA) [Mass fraction] 99 % Joseph Sotelo MD Work Phone: [facility] 06-11-2023 15:12-0500 Systolic blood pressure 100 mm[Hg] Joseph Sotelo MD Work Phone: [facility] 06-03-2023 08:26-0500 Diastolic blood pressure 64 mm[Hg] Luís Andres MD Work Phone: [facility] 06-03-2023 08:26-0500 Systolic blood pressure 106 mm[Hg] Luís Andres MD Work Phone: [facility] 06-03-2023 08:12-0500 Body height 157.5 cm Luís Andres MD Work Phone: [facility] 06-03-2023 08:12-0500 Body mass index (BMI) [Ratio] 29.26 kg/m2 Luís Andres MD Work Phone: [facility] 06-03-2023 08:12-0500 Body weight 72.58 kg Luís Andres MD Work Phone: [facility] 03-24-2023 10:40-0500 Body height 154.1 cm Vu Juarez MD MPH Work Phone: [facility] 03-24-2023 10:40-0500 Body mass index (BMI) [Ratio] 31.92 kg/m2 Vu Juarez MD MPH Work Phone: [facility] 03-24-2023 10:40-0500 Body temperature 97.3 [degF] Vu Juarez MD MPH Work Phone: [facility] 03-24-2023 10:40-0500 Body weight 75.8 kg Vu Juarez MD MPH Work Phone: [facility] 03-24-2023 10:40-0500 Diastolic blood pressure 107 mm[Hg] Vu Juarez MD MPH Work Phone: [facility] 03-24-2023 10:40-0500 Heart rate 85 /min Vu Juarez MD MPH Work Phone: [facility] 03-24-2023 10:40-0500 Respiratory rate 16 /min Vu Juarez MD MPH Work Phone: [facility] 03-24-2023 10:40-0500 SaO2% (BldA) [Mass fraction] 98 % Vu Juarez MD MPH Work Phone: [facility] 03-24-2023 10:40-0500 Systolic blood pressure 148 mm[Hg] Vu Juarez MD MPH Work Phone: [facility] 09-05-2022 10:45-0400 Body height 155.57 cm Hilary Staton Other [employer] Other 09-05-2022 10:45-0400 Body mass index (BMI) [Ratio] 33.73 kg/m2 Hilary Staton Other [employer] Other 09-05-2022 10:45-0400 Body temperature 97.3 [degF] Hilary Staton Other [employer] Other 09-05-2022 10:45-0400 Body weight 81.65 kg Hilary Staton Other [employer] Other 09-05-2022 10:45-0400 Diastolic blood pressure 98 mm[Hg] Hilary Staton Other [employer] Other 09-05-2022 10:45-0400 Respiratory rate 18 /min Hilary Staton Other [employer] Other 09-05-2022 10:45-0400 SaO2% (BldA) [Mass fraction] 99 % Hilary Staton Other [employer] [facility] Other 09-05-2022 10:45-0400 Systolic blood pressure 139 mm[Hg] Hilary Staton Other [employer] [facility] Other Encounters Encounter Date Encounter Type Care Provider Facility Start: 09-25-2023 End: 09-26-2023 [facility] Start: 08-05-2023 End: 08-05-2023 [facility] Start: 08-05-2023 End: 08-05-2023 Postop follow up visit related to original px Dayanara Perezne PA Work Phone: [facility] Rec[facility] Comment on above: Encounter for postop erative care (Primary Dx); Menopausal symptoms Start: 08-03-2023 Telephone encounter Dayanara cooney PA Work Phone: [facility] Start: 07-30-2023 End: 07-30-2023 Postop follow up visit related to original px Isaac Robin PA Work Phone: [facility] Comment on above: Abdominal wall mass (Primary Dx) Start: 07-27-2023 Orders Only Dayanara Carroll PA Work Phone: [facility] Comment on above: Muscle spasms of bot h lower extremities (Primary Dx) Start: 07-22-2023 End: 07-22-2023 ambulatory [facility] Start: 07-22-2023 End: 07-22-2023 Postop follow up visit related to original px Dayanara Carroll PA Work Phone: [facility] Comment on above: Encounter for postop erative care (Primary Dx); Menopausal symptoms; Acute serous otitis media, recurrence not specified, unspecified laterality Start: 07-13-2023 Telephone encounter Sheyla Mendoza RN [facility] Start: 07-07-2023 End: 07-07-2023 Evaluation and management of inpatient ELSI RICK [facility] Start: 07-06-2023 End: 07-07-2023 Evaluation and management of inpatient [facility] Start: 06-29-2023 End: 06-29-2023 ambulatory JOSEPH SOTELO [facility] Start: 06-29-2023 End: 06-29-2023 [facility] Phone Call Provider 2 [facility] Start: 06-26-2023 End: 06-27-2023 ambulatory LUÍS [facility] Start: 06-26-2023 Encounter for other preprocedural examination DAYANARA CARROLL [facility] Start: 06-25-2023 Orders Only Luís Andres MD Work Phone: [facility] Comment on above: Preop testing (Prima ry Dx) Start: 06-25-2023 Patient encounter status Luís Andres MD Work Phone: [facility] Start: 06-17-2023 End: 06-17-2023 ambulatory LUÍS [facility] Start: 06-17-2023 End: 06-17-2023 Office outpatient visit 40 minutes Luís Andres MD Work Phone: [facility] Comment on above: Pelvic mass (Primary Dx) Start: 2023 End: 06-16-2023 ambulatory [facility] Start: 06-11-2023 End: 06-11-2023 ambulatory JOSEPH SOTELO Not Available Start: 06-11-2023 End: 06-11-2023 Office outpatient visit 25 minutes Joseph Sotelo MD Work Phone: [facility] Comment on above: Benign essential hyp ertension (CMS/HCC) (Primary Dx); Sinus tachycardia; 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; Pelvic pain Start: 05-22-2023 ambulatory JOSEPH SOTELO [facility] Start: 05-20-2023 Telephone encounter Sheyla Mendoza RN [facility] Start: 05-19-2023 End: 05-19-2023 ambulatory COMPA DYEZIO Not Available Start: 05-06-2023 End: 05-06-2023 ambulatory JOSEPH SOTELO Not Available Start: 04-08-2023 End: 04-08-2023 Office outpatient new 45 minutes Jeremy Jang MD Work Phone: [facility] Comment on above: Endometrioma Start: 04-08-2023 End: 04-08-2023 ambulatory JOSEPH SOTELO Not Available Start: 03-24-2023 End: 03-24-2023 [facility] Start: 03-24-2023 End: 03-24-2023 Office outpatient new 60 minutes Vu Juarez MD MPH Work Phone: [facility] Comment on above: Endometrioma (Primar y Dx) Start: 09-05-2022 End: 09-05-2022 ambulatory Hilary Staton Other [employer] Other Start: 09-05-2022 Office outpatient ne w 20 minutes Hilary Staton [facility] Start: 08-05-2022 End: 08-06-2022 ambulatory SHAIKH Neema KRISHNA Facility: Start: 06-16-2022 End: 06-16-2022 ambulatory AYDIN CAMACHO Facility:[facility] Start: 04-23-2022 End: 04-24-2022 ambulatory Kristopher Guerrero Facility:[facility] Start: 12-30-2021 End: 12-31-[address] JOSEPH SOTELO Facility:[facility] Start: 12-28-2021 End: 12-29-[address] JOSEPH SOTELO Facility:[facility] Start: 11-19-2021 End: 11-20-2021 ambulatory JOSEPH SOTELO Facility:[facility] Start: 11-02-2021 End: 11-02-2021 ambulatory JOSEPH SOTELO Facility:[facility] Start: 09-27-2021 End: 09-28-[address] JOSEPH SOTELO Facility:[facility] Start: 08-20-2021 End: 08-21-[address] JOSEPH SOTELO Facility: Start: 05-14-2021 End: 05-14-2021 ambulatory JOSEPH SOTELO Facility:[facility] Procedures Date Procedure Procedure Detail Performing Clinician Start: 07-22-2023 Follow-up visit Follow-up JEAN CARLOS CARROLL Start: 07-06-2023 Adult depression scr eening assessment Sheyla Mendoza RN Plan of Treatment Date Care Activity Detail Author Start: 2036 Zoster Vaccines (1 of 2) Zoste r Vaccines (1 of 2) [facility] Start: 07-28-2027 DTaP,Tdap and Td Vaccines (6 - Td or Tdap) DTaP,Tdap and Td Vaccines (6 - Td or Tdap) [facility] Start: 07-28-2027 DTaP/Tdap/Td Vaccine s (6 - Td or Tdap) DTaP/Tdap/Td Vaccines (6 - Td or Tdap) [facility] Start: 08-04-2024 Adult BMI Screening Adult BMI Screen ing [facility] Start: 07-29-2024 Adult BMI Screening Adult BMI Screen ing [facility] Start: 07-29-2024 Tobacco Screening Tobacco Screening [facility] Start: 07-21-2024 Adult BMI Screening Adult BMI Screen ing [facility] Start: 07-21-2024 Tobacco Screening Tobacco Screening [facility] Start: 07-06-2024 Adult BMI Screening Adult BMI Screen ing [facility] Start: 07-05-2024 Depression Screening Depression Scre ening [facility] Start: 07-05-2024 Tobacco Screening Tobacco Screening [facility] Start: 06-29-2024 Tobacco Screening Tobacco Screening [facility] Start: 06-17-2024 Adult BMI Screening Adult BMI Screen ing [facility] Start: 06-17-2024 Tobacco Screening Tobacco Screening [facility] Start: 06-03-2024 Adult BMI Screening Adult BMI Screen ing [facility] Start: 06-03-2024 Tobacco Screening Tobacco Screening [facility] Start: 01-03-2024 Influenza vaccination Influenza Vacc ine [facility] Start: 08-10-2023 End: 08-10-2023 Patient encounter procedure 08/10/2023 2:45 PM EDT [facility] [address] [place] [address] Joseph Sotelo MD [address] [place] [address] [facility] Start: 08-05-2023 End: 08-05-2023 Patient encounter procedure [facility] Start: 07-30-2023 End: 07-30-2023 Patient encounter procedure 07/30/2023 3:00 PM EDT Office Visit [facility] General Surgery [address] [place] [address] [facility] Start: 07-22-2023 End: 07-22-2023 Patient encounter procedure 07/22/2023 9:00 AM EDT Office Visit [facility] [address] [place] [address] Dayanara Carroll PA [address] [place] [address] [facility] Start: 07-06-2023 End: 07-06-2023 Admission to same day surgery center [facility] Comment on above: DAVINCI SALPINGO OOP HORECTOMY/ ABDOMINAL WALL RESECTION ENDOMETRIOSIS DAVINCI SALPINGO OOP HORECTOMY Start: 07-06-2023 End: 07-06-2023 DAVINCI SALPINGO OOPHORECTOMY DAVINCI SALPINGO OOPHORECTOMY PELVIC PAIN 07/06/2023 10:00 AM EST [facility] Start: 07-06-2023 End: 07-06-2023 Laps fulg/exc ovary viscera/peritoneal surface DAVINCI FULGURATION ENDOMETRIAL IMPLANTS PELVIC PAIN 07/06/2023 10:00 AM EST [facility] Start: 07-06-2023 Subsequent hospital visit by physician 07/06/2023 10:00 AM EST Hospital Encounter [facility] Surgery [address] [place] [phone] Luís Andres MD [address] [place] [address], [address] [place] [address] [facility] Surgery Start: 07-06-2023 End: 07-06-2023 Unlisted laparoscopic px abd pertoneum & omentum DAVINCI RESECTION MASS PERITONEAL PELVIC PAIN 07/06/2023 10:00 AM EST [facility] Start: 06-29-2023 End: 06-29-2023 Admission to establishment 06/29/2023 12:45 PM EST Support Visit [facility] On [address] [address] [facility] Metyissel [facility]Ad[facility] On [facility] Start: 06-17-2023 End: 06-17-2023 Patient encounter procedure 06/17/2023 8:30 AM EST Office Visit [facility] [address] [place] [address] [address] [place] [phone] Luís [place] [address] [place] [address], [address] [place] [address] [facility] Start: 06-11-2023 End: 06-11-2023 Patient encounter procedure 06/11/2023 3:15 PM EST Office Visit [facility] [address] [place] [id number] Joseph Sotelo MD [address] [place] [phone] Arrived [facility] Comment on above: Arrived Start: 06-03-2023 End: 06-03-2024 MR Pelvis WO contrast MR pelvis without contrast Imaging Routine Pelvic mass Endometriosis Expected: 06/03/2023, Expires: 06/03/2024 [facility] Work Phone: Comment on above: Expected: 06/03/2023 , Expires: 06/03/2024 Start: 06-03-2023 End: 06-03-2023 Patient encounter procedure 06/03/2023 8:00 AM EST Office Visit [facility] [address] [place] [address] [address] [place] [address] Luís Andres MD [address] [place] [address], [address] [place] [address] [facility] Start: 01-02-2023 COVID-19 Vaccine ( season) COVID-19 Vaccine ( season) [facility] Start: 01-02-2023 Influenza vaccination [facility] Start: 04-26-2021 COVID-19 Vaccine (4 - Moderna series) COVID-19 Vaccine (4 - Moderna series) [facility] Start: 12-24-2017 Varicella vaccination Varicell a Vaccines (2 of 2 - 13+ 2-dose series) [facility] Start: 2007 Screening for malign ant neoplasm of cervix [facility] Start: 2004 Adult BMI Follow Up Plan Adult BMI Follow Up Plan [facility] Start: 2004 Adult BMI Screening Adult BMI Screen ing [facility] Start: 2004 Diabetes mellitus screening Diabetes Screening [facility] Start: 2004 Hepatitis C screening Hepatitis C Sc reening [facility] Start: 1998 Depression Screening Depression Scre ening [facility] Start: 1998 Tobacco Screening Tobacco Screening [facility] Start: 1986 HIV screening HIV Screening [facility] Start: 1986 Lipid panel Lipid Panel [facility] Start: 1986 Yearly Adult Physical Yearly Adult P hysical [facility] End: 06-25-2024 CBC W Auto Differential panel - Blood CBC with auto diff Lab Routine Preop testing 1 Occurrences starting 06/25/2023 until 06/25/2024 [facility] Work Phone: Comment on above: 1 Occurrences starti ng 06/25/2023 until 06/25/2024 Immunizations Immunization Date Immunization Notes Care Provider [facility] 02-18-2021 influenza, injectabl e, quadrivalent, preservative free Sheyla Mendoza RN [facility] 02-18-2021 influenza virus vaccine, unspecified formulation Vu Juarez MD MPH Work Phone: [facility] Work Phone: 01-31-2020 influenza, injectabl e, quadrivalent, preservative free Sheyla Mendoza RN [facility] 01-31-2020 influenza virus vaccine, unspecified formulation Sheyla Mendoza RN [facility] 01-29-2020 influenza, injectabl e, quadrivalent, preservative free Sheyla Mendoza RN [facility] [facility] 01-13-2019 influenza, injectabl e, quadrivalent, preservative free Sheyla Mendoza RN [facility] 01-01-2018 influenza, injectabl e, quadrivalent, preservative free Sheyla Mendoza RN [facility] 11-26-2017 hepatitis B vaccine, adult dosage Sheyla Mendzoa RN [facility] 11-26-2017 varicella virus vaccine Vu Juarez MD MPH Work Phone: [facility] Work Phone: 07-27-2017 hepatitis B vaccine, adult dosage Sheyla Mendoza RN [facility] 07-27-2017 tetanus toxoid, reduced diphtheria toxoid, and acellular pertussis vaccine, adsorbed Sheyla Mendoza RN [facility] 01-11-2014 influenza, seasonal, injectable, preservative free Hilary Staton Other [employer] Other 12-28-1998 hepatitis B vaccine, pediatric or pediatric/adolescent dosage Sheyla Mendoza RN [facility] 12-28-1998 measles, mumps and rubella virus vaccine Sheyla Mendoza RN [facility] 12-28-1998 TD(adult) unspecifie d formulation Sheyla Mendoza RN [facility] 07-01-1991 diphtheria, tetanus toxoids and pertussis vaccine Sheyla Mendoza RN [facility] 07-01-1991 trivalent poliovirus vaccine, live, oral Sheyla Mendoza RN [facility] 01-30-1989 diphtheria, tetanus toxoids and pertussis vaccine Sheyla Mendoza RN [facility] 01-30-1989 measles, mumps and rubella virus vaccine Sheyla Mendoza RN [facility] 1986 diphtheria, tetanus toxoids and pertussis vaccine Sheyla Mendoza RN [facility] 1986 trivalent poliovirus vaccine, live, oral Sheyla Mendoza RN [facility] 1986 diphtheria, tetanus toxoids and pertussis vaccine Sheyla Mendoza RN [facility] 1986 trivalent poliovirus vaccine, live, oral Sheyla Mendoza RN [facility] Payers Date Payer Category Payer Unknown [id number] 2017 [facility] GTFAN [id number] 1986 Unknown [id number] 2.16.84 0.1.923622.3.579.2.593 1986 Unknown [id number] 2.16.84 0.1.218866.3.579.2.593 1986 Unknown [id number] 2.16.84 0.1.536202.3.579.2.593 1986 Unknown [id number] 2.16.84 0.1.540535.3.579.2.593 1986 Unknown [id number] 2.16.84 0.1.655016.3.579.2.593 1986 Unknown [id number] 2.16.8 40.1.477630.3.579.2.1245 1986 Unknown [id number] 2.16.84 0.1.077074.3.579.2.1286 1986 Unknown [id number] 2.16.84 0.1.055748.3.579.2.6 1986 Unknown [id number] 2.16.84 0.1.417868.3.579.2.1259 1986 Unknown [id number] 2.16.84 0.1.449301.3.579.2.1259 1986 Unknown [id number] 2.16.840 .1.953553.3.579.2.1259 1986 Unknown [id number] 2.16.840 .1.452558.3.579.2.9 1986 Unknown [id number] 2.16.8 40.1.363079.3.579.2.1286 1986 Unknown [id number] 2.16.8 40.1.796721.3.579.2.1286 1986 Unknown [id number] 2.16.8 40.1.719138.3.579.2.128 1986 Unknown [id number] 2.16.8 40.1.575772.3.579.2.128 1986 Unknown [id number] 2.16.8 40.1.854576.3.579.2.128 1986 Unknown [id number] 2.16.8 40.1.829898.3.579.2.1286 1986 Unknown [id number] 2.16.8 40.1.752463.3.579.2.1286 1986 Unknown [id number] 2.16.8 40.1.373850.3.579.2.1286 1986 Unknown [id number] 2.16.8 40.1.033095.3.579.2.1286 1986 Unknown [id number] 2.16.8 40.1.993629.3.579.2.1286 1986 Unknown [id number] 2.16.8 40.1.832859.3.579.2.1286 1986 Unknown [id number] 2.16.8 40.1.973109.3.579.2.1286 1959 Self-pay 1959 Unknown [id number] Unknown [id number] 2.16.84 0.1.679928.3.579.2.593 Social History Date Type Detail Facility Unknown if ever smoked [employer] Other Start: 05-30-2020 End: 04-08-2023 Sex Assigned At [facility] consumption unknown [facility] Work Phone: Start: 1985 Sex Assigned At Not on file [facility] Work Phone: Start: 03-14-2023 End: 04-08-2023 Exposure to SARS-CoV-2 (event) Not sure [facility] Start: 04-08-2023 End: 06-29-2023 Tobacco smoking status NHIS Never smoked tobacco [facility] Start: 04-08-2023 End: 06-29-2023 Tobacco use and exposure Smokeless tobacco non-user [facility] Work Phone: Start: 04-08-2023 Alcohol intake Ex-drinker (finding) [facility] Work Phone: Start: 05-30-2020 End: 04-08-2023 History of Social function [facility] Start: 11-26-2018 End: 07-30-2023 Alcohol intake Current drinker of alcohol (finding) [facility] Housing Instability Unknown [facility] Start: 11-02-2017 Alcohol Comment socially [facility] Start: 05-19-2023 End: 06-11-2023 Alcohol intake Lifetime [...] of tobacco use Passive smoker [facility] Start: 06-29-2023 Alcohol Comment 0-1 per month [facility] Medical Equipment Procedure Code Equipment Code Equipment Origin al Text Equipment Identifier Dates Mesh [id number] Flt Vcl Abs Wvn Srg Hrn Repr - [id number] Start: 07-06-2023 Goals Date Patient Goal [...] 38 y.o. female who is s/p a [id number]-[id number]-[id number] of adhesions, endometriosis resection on 07/06/23. Pathology: [...] 07/06/2023 Performed by Luís Andres MD at [facility] LYSIS OF ADHESIONS X 60 MIN N/A 07/06/2023 Performed by Luís Andres MD at [facility] RESECTION MASS PERITONEAL/ SOFT TISSUE MASS REMOVAL POSTERIOR RECTUS SHEATH/EXCISIONAL DEBRIDMENT N/A 07/06/2023 Performed by Luis Antonio Flynn MD at [facility] SALPINGO OOPHORECTOMY Bilateral 07/06/2023 Performed by Luís Andres MD at [facility] ENDOMETRIAL ABLATION 2013 ESOPHAGOGASTRODUODENOSCOPY 2010 HYSTERECTOMY 04/16/2015 partial LITHOTRIPSY 2013 TONSILLECTOMY 2012 Past Medical History: Diagnosis Date Anxiety Dental disease one chipped tooth, right upper very back of mouth Depression Dizziness Endometriosis GERD (gastroesophageal reflux disease) Hypertension Kidney stones Pelvic pain PONV (postoperative nausea and vomiting) Pulmonary embolism ([facility]) 11/29/2010 during Sciatica Sinus tachycardia Visual impairment [...] endometriosis. Re-evaluate with our team or benign assembler equipment in 6 months. May consider transdermal estrogen, [...] *This note was completed using a voice clinical documentation improvement specialist system. Every effort was made to ensure accuracy. However, inadvertent computerized clinical documentation improvement specialist errors may be present. .Total time spent [...] Wang 08/05/23 1126 documented in this encounter [facility] 08-03-2023 Miscellaneous Notes Spoke with patient to move up her appt on 08/05/23 to 11am, patient confirmed. documented in this encounter [facility] 08-03-2023 Telephone encounter Note Spoke with patient to move up her appt on 08/05/23 to 11am, patient confirmed. [facility] 07-30-2023 History of Presen t illness Narrative [...] 5) follow-up with six-month Isaac Robin PA-C [facility] General Surgery [address] [facility] [address] [place] [address] SEBASTIAN Romero 07/30/23 1454 documented in this encounter [facility] 07-22-2023 History of Presen t illness Narrative Subjective: Gissel Del Rosario female who is 38 y.o. female who is s/p a TSF-RTA-vscav of adhesions, endometriosis resection on 07/06/23. Pathology: [...] 07/06/2023 Performed by Luís Andres MD at [facility] LYSIS OF ADHESIONS X 60 MIN N/A 07/06/2023 Performed by Luís Andres MD at [facility] RESECTION MASS PERITONEAL/ SOFT TISSUE MASS REMOVAL POSTERIOR RECTUS SHEATH/EXCISIONAL DEBRIDMENT N/A 07/06/2023 Performed by Luis Antonio Flynn MD at [facility] Bilateral 07/06/2023 Performed by Luís Andres MD at [facility] ENDOMETRIAL ABLATION 2014 ESOPHAGOGASTRODUODENOSCOPY 2010 HYSTERECTOMY 04/16/2015 partial LITHOTRIPSY 2013 TONSILLECTOMY 2012 Past Medical History: Diagnosis Date Anxiety Dental disease one chipped tooth, right upper very back of mouth Depression Dizziness Endometriosis GERD (gastroesophageal reflux disease) Hypertension Kidney stones Pelvic pain PONV (postoperative nausea and vomiting) Pulmonary embolism ([facility]) 11/29/2010 during Sciatica Sinus tachycardia Visual impairment [...] endometriosis. Re-evaluate with our team or benign assembler equipment in 6 months. May consider transdermal estrogen, [...] *This note was completed using a voice clinical documentation improvement specialist system. Every effort was made to ensure accuracy. However, inadvertent computerized clinical documentation improvement specialist errors may be present. .Total time spent [...] Wang 07/22/23 0933 documented in this encounter [employer] 07-13-2023 Miscellaneous Notes Patient called in with [...] scheduled for 07/21. documented in this encounter [facility] 07-13-2023 Telephone encounter Note Patient called in [...] questions. Post op appt scheduled for 07/21. [facility] 06-29-2023 Instructions Formatting of th is note might be different from the original. Your surgery/procedure is scheduled at [facility] on 07/06/2023 at 10 am Arrival Time 8 am [facility] Address: [address] [place] [address] in Parking lot located on [facility]. Report to the Entrance B. Check in at the information desk the surgery. The waiting room located on the second floor. If you have any questions prior to surgery, please call Pre-Admission Clinic at [phone] between 7:30 am and 4:30 pm Thursday through Thursday. If you have questions the morning of surgery, please call the Pre-op Department at [phone]. Notify your SURGEON if you develop any [...] would like to schedule therapy at a [facility] facility, please call [phone] ([phone]). Do not use lotions, creams, powders, perfume, make up, cologne or after-shaves day of surgery. Remove ALL jewelry including wedding rings, body piercings,hair extensions that contain metal, nail hong konger, make-up, and contact lens. You may brush [...] RIGHTS AND RESPONSIBILITIES As a patient at [facility], you have the right to: Receive medical care and be informed of who is taking care of you Be treated with dignity and respect Have a family member/front office representative of choice and your physician notified of your admission Receive information and actively participate in decisions about your care and treatment Refuse care, treatment and services Decide who may provide your support and speak for you Access buddhist and spiritual services Participate in ethical issues [...] of hospital charges and payment methods Patient/patient front office representative responsibilities are to: Provide information about health status to facilitate care, treatment and services Follow the treatment, plan, keep appointments and speak up when you do not understand the plan Respect the rights of other patients and healthcare personnel Follow organizational rules and regulations that support quality care and a safe environment Fulfill financial obligations as promptly as possible [facility] 06-29-2023 Miscellaneous Notes Your surgery/procedure is scheduled at [facility] on 07/06/2023 at 10 am Arrival Time 8 am [facility] Address: [address] [place] [address] Park in Parking lot located on [facility]. Report to the Entrance B. Check in at the information desk the surgery. The waiting room located on the second floor. If you have any questions prior to surgery, please call Pre-Admission Clinic at [phone] between 7:30 am and 4:30 pm Thursday through Thursday. If you have questions the morning of surgery, please call the Pre-op Department at [phone]. Notify your SURGEON if you develop any [...] would like to schedule therapy at a [facility] facility, please call [phone] ([phone]). Do not use lotions, creams, powders, perfume, make up, cologne or after-shaves day of surgery. Remove ALL jewelry including wedding rings, body piercings,hair extensions that contain metal, nail hong konger, make-up, and contact lens. You may brush [...] RIGHTS AND RESPONSIBILITIES As a patient at [facility], you have the right to: Receive medical care and be informed of who is taking care of you Be treated with dignity and respect Have a family member/front office representative of choice and your physician notified of your admission Receive information and actively participate in decisions about your care and treatment Refuse care, treatment and services Decide who may provide your support and speak for you Access buddhist and spiritual services Participate in ethical issues [...] of hospital charges and payment methods Patient/patient front office representative responsibilities are to: Provide information about [...] promptly as possible documented in this encounter [employer] 06-17-2023 History of Presen t illness Narrative [...] personal or family history of GI or multi care technician malignancies. We reviewed her imaging as well [...] procedures Referring and communicating with other health health care facility administrator (not separately reported) Documenting clinical information in the electronic or other health record Luís Andres MD [facility] History of Presen t illness Narrative Associated Problem(s): Sinus tachycardia Symptoms stable with toprol and continue. 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 Associated Problem(s): Benign essential hypertension (CMS/HCC) BP remains low and stop zestoretic. Start lisinopril daily and monitor BP. Subjective Patient ID: Gissel Del Rosario is a 37 y.o. female who presents for Follow-up (1m). Follow up HTN, tachycardia, and abdominal mass. Patient continues to have abdominal pain. Seen by multi care technician and felt mass related to endometriosis in [...] scar Continued pain and follow up with multi care technician for surgery. documented in this encounter [facility] 06-03-2023 History of Presen t illness Narrative [...] personal or family history of GI or multi care technician malignancies. We reviewed her imaging as well [...] procedures Referring and communicating with other health health care facility administrator (not separately reported) Documenting clinical information in the electronic or other health record Luís Andres MD documented in this encounter [employer] 05-20-2023 Miscellaneous Notes Left VM to schedule [employer] appointment with multi care technician onc. Requested US and CT images be pushed via PACS from [employer]. documented in this encounter [employer] 05-20-2023 Telephone encounter Note Left VM to schedule [employer] appointment with multi care technician onc. Requested US and CT images be pushed via PACS from [employer]. [facility] History of Presen t illness Narrative [...] was negative but is to see a retail cosmetics sales beauty advisor to further work this up as well. Jeremy Jnag MD documented in this encounter [facility] Work Phone: 03-24-2023 History of Presen [...] hernia specialists. --I will discuss with her assembler equipment the value of abdominal exploration for additional [...] MPH @[email or web address]@ @[email or web address]@ documented in this encounter [facility] Work Phone: 09-05-2022 Evaluation note Encounter [...] understanding and is agreeable with treatment plan. [employer] Other [id number] NotePROCEDURE: XR PELVIS W_OBL MIN 3 VIEWS COMPARISON: HISTORY: Disorder of sacrum FINDINGS: BONES:No fracture, acute abnormality, or significant arthropathy. SOFT TISSUES:Negative. No visible soft tissue swelling. EFFUSION:None visible. OTHER: Negative. IMPRESSION: No acute abnormality Electronically authenticated by: ASHLEY CARRANZA Date: 2021-09-28 07:58[facility]05-28-2022 NotePROCEDURE: XR TIB_FIB LT 2V COMPARISON: 07/17/2020 HISTORY: Pain in left leg FINDINGS: BONES:No acute fracture or dislocation. Stable sclerosis along the distal tibia. Enthesopathic spurring plantar calcaneus SOFT TISSUES:Negative. No visible soft tissue swelling. EFFUSION:None visible. OTHER: Negative. IMPRESSION: Stable exam, no interval change Electronically authenticated by: ASHLEY CARRANZA Date: 2021-09-28 07:56[facility]* Diagnosis Endometrioma- Primary Endometriosis, site unspecified documented in this encounter [facility] Work Phone: Evaluation note* Diagnosis Endometrioma Endometriosis, site unspecified documented in this encounter [facility] Work Phone: Evaluation note* Diagnosis Pelvic mass- Primary Abdominal or pelvic swelling, mass or lump, unspecified site Endometriosis Endometriosis, site unspecified 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 Endometriosis in scar of skin Pelvic pain documented in this encounter [facility] Diagnosis Benign essential hypertension (CMS/HCC)- Primary Essential hypertension, benign Sinus tachycardia Other specified cardiac dysrhythmias 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 Endometriosis in scar of skin documented in this encounter [facility]* Diagnosis Pelvic mass- Primary Abdominal or pelvic swelling, mass or lump, unspecified site [facility] Diagnosis Preop testing- Primary Unspecified pre-operative examination [facility]* Diagnosis Encounter for postoperative care- Primary Menopausal symptoms Symptomatic menopausal or female climacteric states Acute serous otitis media, recurrence not specified, unspecified laterality documented [facility]* Diagnosis Muscle spasms of both lower extremities- Primary [facility] Diagnosis Abdominal wall mass- Primary Abdominal or pelvic swelling, mass or lump, unspecified site [facility]* Diagnosis Encounter for postoperative care- Primary Menopausal symptoms Symptomatic menopausal or female climacteric states [facility] N[facility]ative - Reported* Type Description Date Medical History HTN (hypertension) Medical History Anxiety and depression Medical History migraine headache Medical History seasonal allergies Surgical History essure Surgical History EGD Surgical History C section Surgical History hysterectomy 2015 Hospitalization History PE Hospitalization History child x3 Hospitalization History demise x1 [employer] Other InstructionsNot on filedocumented in this encounter [...] Health SystemInstructionsNot on filedocumented in this encounter [facility] (narrative)* Consultation (Routine) - Pending Review Specialty Diagnoses / Procedures Referred By Frankie t Referred To Contact General Surgery Diagnoses Pelvic mass Luís Andres MD [address] [place] [address], [address] [place] [address] [place] [address] [place] [address], [address] [place] [address] Referral ID Status Reason Start Date Expiration Date Visits Requested Visits Authorized [id number] Pending Review Specialty Services Required 06/17/2023 06/16/2024 1 1 [facility] Summary Purpose Family History No Family History [...] MR pelvis without contrast Luís Andres MD [address] [place] [address], [address] [place] [address] Referral ID Status Reason Start Date Expiration Date V isits Requested Visits Authorized [id number] Pending Review 06/03/2023 06/02/2024 1 1 Additional Source Comments INFORMATION SOURCE (unrecogn ized section and content) DATE CREATED AUTHOR 05/01/2022 [facility] DATE CREATED AUTHOR AUTHOR'S ORGANIZ ATION 08/10/2022 [facility] DATE CREATED AUTHOR AUTHOR'S ORGANIZ ATION 03/26/2023 [facility] DATE CREATED AUTHOR AUTHOR'S ORGANIZ ATION 05/24/2023 [facility] DATE CREATED AUTHOR AUTHOR'S ORGANIZ ATION 06/13/2023 [facility] DATE CREATED AUTHOR AUTHOR'S ORGANIZ ATION 06/18/[address] [facility] DATE CREATED AUTHOR AUTHOR'S ORGANIZ ATION 07/11/2023 [facility] DATE CREATED AUTHOR AUTHOR'S ORGANIZ ATION 09/27/2023 [facility] REASON FOR VISIT (unrecogniz ed section and content) Reason Comments New Patient Visit Reason Comments Endometriosis Specialty Diagnoses / Procedures Referred By Contchacorta t Referred To Contact General Surgery Diagnoses Endometrioma Vu Juarez MD [facility] [address] [facility] Department of Surgery-Surgical Oncology [place] [phone] [place] [address] [facility] of Surgery-[place] [phone] Referral ID Status Reason Start Date Expiration Date Visits Requested Visits Authorized [id number] Authorized Specialty Services Required 3 03/30/2024 1 [...] Care Teams (unrecognized sec tion and content) [employer]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 Relationship Specialty Start Date End Date Joseph Sotelo MD PCP - General Family Medicine 03/18/23 [employer] Relationship Specialty Start Date End Date Joseph Sotelo MD [address] [place] [address] PCP - General Family Medicine 04/02/23 [employer]er Relationship Specialty Start Date End Date Joseph Sotelo MD [address] [place] [address] PCP - General 01/29/17 [employer] Relationship Specialty Start Date End Date Joseph Sotelo MD [address] [place] [facility] [address] PCP - General 01/29/17 [employer] Relationship Specialty Start Date End Date Joseph Sotelo MD PCP - General Cardiology 10/15/22 [employer] Relationship Specialty Start Date End Date Joseph Sotelo MD PCP - General Cardiology 10/15/22 [employer] Relationship Specialty Start Date End Date Joseph Sotelo MD [address] [place] [facility] [place] [address] PCP - General 01/29/17 [employer] Relationship Specialty Start Date End Date Joseph Sotelo MD [address] [place] [facility] [place] [address] PCP - General 01/29/17 [employer] Relationship Specialty Start Date End Date Joseph Sotelo MD [address] [place] [facility] [place] [address] PCP - General 01/29/17 [employer] Relationship Specialty Start Date End Date Joseph Sotelo MD [address] [place] [facility] [place] [address] PCP - General 01/29/17 [employer] Relationship Specialty Start Date End Date Joseph Sotelo MD [address] [place] [facility] [place] [address] PCP - General 01/29/17 [employer] Relationship Specialty Start Date End Date Joseph Sotelo MD [address] [place] [address] PCP General 01/29/17 [employer] Relationship Specialty Start Date End Date Joseph Sotelo MD [address] [place] [address] PCP [facility] 01/29/17 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 [facility]. provides no warranty or guarantee of the accuracy or completeness of information in this document.
== END 2023-12-22 11:59 | disposition home or self-care (01) ==
LOC: LAB 12:01
PROVIDERS: PCP Family Medicine; Visit Provider Urology
DX: N20.0 Calculus of kidney (principal)
CPT/HCPCS: 74018

== ENCOUNTER 2023-12-24 07:04 | Day surgery (SDC) | payer BC, SELFPAY ==
[2023-12-24] VITALS (10 sets, daily range): BP systolic 119–156; BP diastolic 83–99; PULSE 66–86; TEMP 36.3–36.9; O2SAT 96–100; BMI 26.9
--- NOTE | 2023-12-24 | FL_ITS ---
The [address] [address] Patient Name: OTTO DEL ROSARIO MRN: [id number] date: 1985 Sex: F Assigned Patient Location: SURGOUT Current Patient Location: LAB Accession/Order Number: [id number] Exam Date: 12/24/2023 08:45 Report Date: 12/29/2023 08:17 At the request of: HAYDEE MENDEZ Procedure: FL fluoroscopy <1hr NON-READ EXAM: FL fluoroscopy <1hr NON-READ HISTORY: TECHNIQUE: FINDINGS: Please see Operative Report. Electronically authenticated by: RADIOLOGIST NO Date: 12/29/2023 08:17
--- NOTE | 2023-12-24 07:00 | ECG_ITS ---
The [facility] Test Date: 2023-12-24 Pat Name: OTTO DEL ROSARIO Department: Room: - Gender: Female [employer]: : 1985 Requested By: HAYDEE MENDEZ Order Number: [id number] Reading MD: GAVI GILL Measurements Intervals [place] Rate: 71 P: 30 ID: 150 QRS: 59 QRSD: 94 T: 55 QT: 357 QTc: 389 Interpretive Statements SINUS RHYTHM Compared to ECG 04/05/2023 16:11:28 Sinus tachycardia no longer present Electronically Signed On 12-24-2023 21:28:59 EDT by GAVI GILL
--- OUTSIDE RECORDS SUMMARY | 2023-12-24 07:08 | XMS_ITS | CCD ---
Author Organization [facility] Care Team Providers Care Chiropractic Teacher Name Role Phone JOSEPH SOTELO Primary Care Unavailable Kristopher Guerrero Admitting Unavailable NADEREBreanna, JOSEPH Carey Primary Care Unavailable Kristopher Guerrero Attending Unavailable NADEREBreanna, JOSEPH Carey Primary Care Unavailable NADEREBreanna, JOSEPH Carey Primary Care Unavailable NADERER, DR JOSEPH Carey Primary Care Unavailable JAMISON ., DR BOWERS Admitting Unavailable JAMISON ., DR BOWERS Attending Unavailable JAMISON ., DR BOWERS Consulting Unavailable ZIEBER, DR BRIAN Carlos Consulting Unavailable HARDIKWSHAIKH Neema PENNINGTON Consulting Unavailable SHAIKH Neema KRISHNA Admitting Unavailable NADERER, DR JOSEPH Carey Primary Care Unavailable TOMI, SHAIKH Neema Attending Unavailable CATHY, JAYDEN Consulting Unavailable DOUGAYDIN CARDOZO Attending Unavailable NADJULIETTE, DR JOSEPH Carey Primary Care Unavailable DOUG, AYDIN Admitting Unavailable AYDIN CAMACHO Consulting Unavailable NADJULIETTE, DR JOSEPH Carey Primary Care Unavailable NICHOLE, DR ALLIE Carlos Consulting Unavailable NICHOLE, DR ALLIE Carlos Admitting Unavailable NICHOLE, DR ALLIE Carlos Attending Unavailable AMINA WU Consulting Unavailable ASHLEIGH, DR JOSEPH Carey Primary Care Unavailable NICHOLE, DR ALLIE Carlos Attending Unavailable NICHOLE, DR ALLIE Carlos Consulting Unavailable NICHOLE, DR ALLIE Carlos Admitting Unavailable FRANTZ COVARRUBIAS Consulting Unavailable NADEREBreanna, DR JOSEPH Carey Primary Care Unavailable NADEREBreanna, DR JOSEPH Carey Admitting Unavailable NADEREBreanna, DR JOSEPH Carey Attending Unavailable DILLON, DR ASHLEY Hightower Consulting Unavailable NADJULIETTE, DR JOSEPH Carey Consulting Unavailable Hilary Staton Unavailable Joseph Sotelo MD Primary Care Provider [facility] Attending Unavailable COMPA VALENZUELA Referring Unavailable ASHLEIGH, JOSEPH KIRKPATRICK Primary Care Unavailtramaine Sotelo MD, Joseph Kirkpatrick Primary Care Provider Joseph Sotelo MD Primary Care Provider NADRYANR, JOSEPH Referring Unavailable NADERER, JOSEPH Primary Care Unavailable NADERER, JOSEPH Referring Unavailable NADERER, JOSEPH Primary Care Unavailable NADERER, JOSEPH Attending Unavailable COMPA VALENZUELA Attending Unavailable NADERER, JOSEPH Attending Unavailable NADERER, JOSEPH Attending Unavailable Naderer Joseph LYLES Primary Care Provider [phone] LUÍS ANDRES Attending Unavailable NADERER, JOSEPH Referring [...] Primary Care Unavailable DAYANARA CARROLL Attending Unavailable Bryant MENDEZ Attending Unavailable NONE, XXXX Primary Care Physician Unavailab le Medications Current Medications Medication Drug Class(es) Dates [...] mg / caffeine 40 mg oral tablet (12 sources) Barbiturate, Central Nervous System Stimulant, Methylxanthine Start: 09-16-2018 butalbital-acetami nophen-caff (FIORICET, ESGIC) 50-325-40 mg per tablet Start: 07-04-2014 Fioricet 325 m g-50 mg-40 mg Tab 1 tab(s), Oral, as needed for pain, Refill(s) 0 Start Date: 07/04/14 Status: Ordered acetaminophen 325 mg / HYDROcodone bitartrate 5 mg oral tablet (7 sources) Opioid Agonist Start: 02-24-2023 take 1 tablet by mouth every six hours HYDROcodone-acetaminophen (Dawson) 5-325 MG tablet Take 1 tablet by [...] days. 56 tablet 0 07/07/2023 08/04/2023 Active Baclofen (14 sources) gamma-Aminobutyri c Acid-ergic Agonist Start: 12-23-2023 baclofen Oral, TID, Refills(s) 0 Start Date: 12/23/23 Status: Ordered Start: 03-24-2023 End: 07-27-2023 take 1 tablet by mouth in the morning, then take 1 tablet by mouth at bedtime baclofen (LIORESAL) 10 mg tablet Indications: Muscle spasms of both lower extremities Take 1 tablet (10 mg total) by mouth in the morning and 1 tablet (10 mg total) before bedtime. 60 tablet 0 07/27/2023 Active cefdinir (1 source) Cephalosporin Antibacterial Start: 12-23-2023 cefdinir Oral Start Date: 12/23/23 Status: Ordered cholecalciferol 0.05 mg oral tablet (15 sources) [...] Active docusate sodium 50 mg / sennosides, prison 8.6 mg oral tablet (6 sources) Start: 07-07-2023 take 1 tablet by mouth once as needed sennosides-docusa te sodium (SENOKOT-S) 8.6-50 mg Take 1 tablet by mouth every 12 (twelve) hours as needed for constipation. 60 tablet 0 07/07/2023 Active DULoxetine 60 mg delayed release oral capsule (18 sources) Serotonin and Norepinephrine Reuptake Inhibitor Start: 12-23-2023 take 1 capsule by mouth once daily duloxetine 60 mg oral delayed release capsule 60 mg = 1 cap(s), Oral, Daily Start Date: 12/23/23 Status: Ordered Start: 01-28-2021 DULoxetine (CY MBALTA) 60 mg capsule Indications: Major depressive disorder, recurrent episode, moderate (CMS-HCC) TAKE 2 CAPSULES DAILY 180 capsule 3 01/28/2021 Active take 1 capsule by mo [facility] in the morning DULoxetine (Cymbalta) [address] capsule Take [...] Active Start: 03-09-2023 [facility] for pain ibuprofen (MOTRIN) 800 mg tablet take 1 tablet by mouth three times a day if needed for mild pain up to 10 days 0 03/09/2023 Active lansoprazole 15 mg delayed release oral capsule (1 source) Proton Pump Inhibitor Start: 07-04-2014 take 1 capsule by mouth once daily lansoprazole 15 mg Cap-EC 15 mg = 1 cap(s), Oral, Daily, Refills(s) 0, Control of stomach acid Start Date: 07/04/14 Status: Ordered lisinopril 10 mg oral tablet (10 sources) Angiotensin Converting Enzyme Inhibitor Start: 06-11-2023 take 1 tablet by mouth in the morning lisinopriL (PRINIVIL,ZESTRIL) 10 mg tablet Indications: hypertension Take 1 tablet (10 mg total) by mouth in the morning. Indications: high blood pressure. 0 06/11/2023 Active Start: 07-04-2014 take 1 tablet by rosa th once daily lisinopril 20 mg Tab 20 mg = 1 tab(s), Oral, Daily, Refills(s) 0, High blood pressure Start Date: 07/04/14 Status: Ordered LORazepam 1 mg oral tablet (7 sources) [...] succinate 25 mg extended release oral tablet (14 sources) beta-Adrenergic Fredi Start: take 1 tablet by mouth once daily metoprolol succinate 25 mg ER Tab 25 mg = 1 tab(s), Oral, Daily Start Date: 12/23/23 Status: Ordered Start: 05-06-2023 take 1 tablet by rosa th every twenty-four hours in the morning metoprolol succinate XL (TOPROL XL) 25 mg 24 hr tablet Take 1 tablet (25 mg total) by mouth in the morning. Sinus tachycardia. 0 05/06/2023 Active omeprazole 40 mg delayed release oral capsule (18 sources) Proton Pump Inhibitor Start: 12-23-2023 take 1 capsule by mouth once daily omeprazole 40 mg Cap-DR 40 mg = 1 cap(s), Oral, Daily Start Date: 12/23/23 Status: Ordered Start: 01-13-2015 take 1 capsule by mo uth once daily before breakfast omeprazole (PriLOSEC) 40 mg capsule Indications: gastroesophageal reflux disease Take 1 capsule (40 mg total) by mouth every morning before breakfast Indications: gastroesophageal reflux disease. 0 07/13/2017 Active Omeprazole Activ e ondansetron 4 mg oral tablet (9 sources) Serotonin-3 Receptor Antagonist Start: 12-23-2023 take 1 mg by mouth every eight hours Zofran 4 mg Tab mg tab(s), Oral, q8hr, Refills(s) 0 Start Date: 12/23/23 Status: Ordered Start: 02-24-2023 take 1 tablet by rosa th every eight hours as needed ondansetron ODT [...] (Therapy completed) OXcarbazepine 300 mg oral tablet (10 sources) Anti-epileptic Agent Start: 12-23-2023 take 1 tablet by mouth twice daily oxcarbazepine 300 mg Tab 300 mg = 1 tab(s), Oral, BID Start Date: 12/23/23 Status: Ordered Start: 03-15-2023 take 1 tablet by rosa th in [...] mg/3 mL) pen injector (2 sources) Start: Ozempic 0.25 mg or 0.5 mg (2 mg/3 mL) pen injector OZEMPIC 0.25 mg or 0.5 mg (2 mg/3 mL) pen injector (4 sources) Start: 3 OZEMPIC 0.25 mg or 0.5 mg (2 mg/3 mL) pen injector polyethylene glycol 3350 08184 mg powder for oral solution (15 sources) Osmotic Laxative polyethylene gl ycol (GLYCOLAX) 17 gram/dose powder Indications: constipation Take 17 g by mouth in the morning. Indications: constipation. 0 Active promethazine hydrochloride 50 mg oral tablet (17 sources) Phenothiazine Start: 4 End: 4 take 0.5 tablet by mouth every four hours as needed for nausea promethazine (PHENERGAN) 50 mg tablet Take 0.5 tablets (25 mg total) by mouth every 4 (four) hours as needed for nausea or vomiting. 0 05/25/2023 08/23/2023 Active Start: 04-16-2023 take 1 tablet by rosa th every six hours for nausea promethazine (Phenergan) 50 MG tablet Indications: Nausea and vomiting, unspecified vomiting type Take 1 tablet (50 mg) by mouth every 6 (six) hours if needed for nausea or vomiting 30 tablet 1 04/16/2023 Active Start: 07-04-2014 End: 08-23-2023 take 1 tablet by mouth every four hours promethazine (PHENERGAN) 25 mg tablet Take 1 tablet (25 mg total) by mouth every 4 (four) hours. 0 05/25/2023 08/23/2023 Active 0.25 mg, 0.5 mg dose 1.5 ml semaglutide 1.34 mg/ml pen injector (3 sources) Start: 06-13-2022 inject 0.25 mg by subcutaneous injection every week Ozempic, 0.25 or 0.5 MG/DOSE, 2 MG/1.5ML solution pen-injector Inject 0.25 mg under the skin 1 (one) time per week. 0 06/13/2022 Active topiramate 50 mg oral tablet (18 sources) Start: 12-23-2023 take 1 tablet by rosa th twice daily topiramate 50 mg Tab 50 mg = 1 tab(s), Oral, BID Start Date: 12/23/23 Status: Ordered Start: 11-01-2018 take 1 tablet by rosa [...] Sig (Original) amoxicillin 875 mg oral tablet (2 sources) Penicillin-class Antibacterial Start: 04-26-2019 take 1 tablet by mouth every twelve hours Amoxicillin 875 MG 1 tablet Orally every 12 hrs for 7 days Apr, Not-Taking Start: 07-13-2014 take 1 tablet by rosa th twice daily amoxicillin 875 mg Tab 875 mg = 1 tab(s), Oral, BID, Refills(s) 0, Infection or prophylaxis for antibiotics Start Date: 07/13/14 Status: Ordered atenolol 25 mg oral tablet (8 sources) [...] Date Documented Da te Episodic/Chronic Abdominal pain (16 sources) Left sided abdominal pain; Translations: [Left sided abdominal pain] Onset: 4 Resolved: 4 06-04-2023 Episodic Acute and chronic tonsillitis (1 source) Chronic tonsillitis 07-04-2014 Chronic Adjustment disorders (11 sources) Posttraumatic stress disorder; Translations: [Reaction to severe stress, unspecified] Onset: 8 07-16-2017 Chronic Anxiety disorders (19 sources) Generalized anxiety disorder; Translations: [Generalized anxiety disorder] Onset: 8 Resolved: 3 03-24-2023 Chronic Attention-deficit, conduct, and disruptive behavior disorders (13 sources) Attention deficit hyperactivity disorder, predominantly inattentive type; Translations: [Attention-deficit hyperactivity disorder, predominantly inattentive type] Onset: 0 03-24-2023 Chronic Attention-deficit, conduct, and disruptive behavior disorders (1 source) Attention deficit hyperactivity disorder 12-23-2023 Chronic Calculus of urinary tract (8 sources) Unspecified renal colic; Translations: [Ureteric stone] Onset: 3 Episodic Cardiac dysrhythmias (5 sources) Sinus tachycardia; Translations: [Tachycardia, unspecified] Onset: 3 05-06-2023 Episodic Endometriosis (20 sources) Endometriosis (clinical); Translations: [Endometrioma] Onset: 3 Resolved: 4 03-25-2023 Chronic Endometriosis (2 sources) Endometriosis; Translations: [Deep endometriosis of ovary, unspecified ovary] Onset: 3 Esophageal disorders (7 sources) Gastroesophageal reflux disease; Translations: [GERD (gastroesophageal reflux disease)] Onset: 5 03-24-2023 Chronic Essential hypertension (9 sources) Essential (primary) hypertension; Translations: [Benign essential [...] states] Onset: 4 07-22-2023 Chronic Mood disorders (17 sources) Recurrent major depressive episodes, moderate ; Translations: [Major depressive disorder, recurrent, moderate] Onset: 8 03-24-2023 Chronic Nutritional deficiencies (3 sources) Vitamin D deficiency; Translations: [Vitamin D deficiency, unspecified] Onset: 3 04-08-2023 Chronic Osteoarthritis (1 source) Arthritis 12-23-2023 Chronic Other aftercare (2 sources) Postoperative visit; [...] Chronic Other nutritional; endocrine; and metabolic disorders (4 sources) Morbid obesity; Translations: [Morbid (severe) obesity due to excess calories] Onset: 3 04-08-2023 Chronic Other skin disorders (1 source) Abdominal mass; Translations: [Localized swelling, mass and lump, trunk] 07-30-2023 Episodic Otitis media and related conditions (2 sources) Acute non-suppurative otitis media - serous; Translations: [Acute serous otitis media, unspecified ear] Onset: 4 07-22-2023 Episodic Pulmonary heart disease (2 sources) Personal history of pulmonary embolism; Translations: [Pulmonary embolism] Onset: 2 07-04-2014 Episodic Comment on above: hx of 5 in 11 Residual codes; unclassified (1 source) Pain, unspecified; Translations: [Pain, unspecified] Onset: 4 Episodic Spondylosis; intervertebral disc disorders; other back problems (3 sources) Degeneration of lumbar intervertebral disc; Translations: [Other intervertebral disc degeneration, lumbar region] Onset: 3 04-08-2023 Chronic Unclassified (1 source) New Patient Onset: 4 Past or Other Problems Problem Classification Problem Date Documented Da te Episodic/Chronic Asthma (5 sources) Asthma; Translations: [Unspecified asthma, [...] thrombosis and embolism] Onset: 03-24-2011 03-24-2023 Episodic Residual codes; unclassified (1 source) Acquired [...] Roberson MD on 09/26/2023 9:30 AM Normal [facility] XR HIP LT 2-3 VIEWS W OR [...] Menchaca MD on 09/26/2023 6:59 PM Normal [facility] BASIC METABOLIC PANLon 07-05 Anion gap [Moles/Vol] 7 mmol/L Normal - [facility] Comment on above: Performed By: #### C BCA, BMP #### [facility] ([id number]) [address], [address] [place] [address] Calcium [Mass/Vol] 7.8 mg/dL Low 8.5-10.5 [facility] Comment on above: Performed By: #### C BCA, BMP #### [facility] ([id number]) [address], [address] [place] [address] Chloride [Moles/Vol] 111 mmol/L High 98-109 [facility] Comment on above: Performed By: #### C BETTY, BMP #### [facility] ([id number]) [address], [address] [place] [address] CO2 [Moles/Vol] 22 mmol/L Normal 22-32 [facility] Comment on above: Performed By: #### C BETTY, BMP #### [facility] ([id number]) [address], [address] [address] Creatinine [Mass/Vol] 0.62 mg/dL Normal 0.40-1.00 [facility] Comment on above: Result Comment: METH OD TRACEABLE TO IDMS STANDARD Performed By: #### C BETTY, BMP #### [facility] ([id number]) [address] [address] eGFR (CKD-EPI) NON-RACE DEPENDENT >90 Normal >59 [facility] Comment on above: Result Comment: Reported eGFR is based on the CKD-EPI 2020 equation that does not use a race coefficient. Performed By: #### C BETTY, BMP #### [facility] ([id number]) [address], [address] [place] [address] Glucose [Mass/Vol] 118 mg/dL High 65-99 [facility] Comment on above: Performed By: #### C BETTY, BMP #### [facility] ([id number]) [address] [address] [place] [address] Potassium [Moles/Vol] 3.6 mmol/L Normal 3.5-5.0 [facility] Comment on above: Performed By: #### C BCA, BMP #### [facility] ([id number]) [address] [address] [place] [address] Sodium [Moles/Vol] 140 mmol/L Normal 134-146 [facility] Comment on above: Performed By: #### C BCA, BMP #### [facility] ([id number]) [address], [address] [place] [address] Urea nitrogen [Mass/Vol] 10 mg/dL Normal 5-23 [facility] Comment on above: Performed By: #### C BETTY, BMP #### [facility] ([id number]) [address], [address] [place] [address] CBC AND AUTO DIFFon 07-06-19 24 ABSOLUTE BASOPHIL 0.0 X10E9/L Normal 0.0-0.2 [facility] Comment on above: Performed By: #### C BETTY, BMP #### [facility] ([id number]) [address], [address] [place] [address] ABSOLUTE NEUTROPHIL 12.5 X10E9/L High 1.5-6.6 [facility] Comment on above: Performed By: #### C BETTY, BMP #### [facility] ([id number]) [address], [address] [place] [address] Basophils/100 WBC (Bld) 0.1 % Normal [facility] Comment on above: Performed By: #### C BETTY, BMP #### [facility] ([id number]) [address], [address] [place] [address] Eosinophils (Bld) [#/Vol] 0.0 10*3/uL Normal 0.0-0.4 [facility] Comment on above: Performed By: #### C BETTY, BMP #### [facility] ([id number]) [address], [address] [place] [address] Eosinophils/100 WBC (Bld) 0.0 % Normal [facility] Comment on above: Performed By: #### C BETTY, BMP #### [facility] ([id number]) [address], [address] [place] [address] Erythrocyte distribution width (RBC) [Ratio] 14.1 % Normal 11.5-15.0 [facility] Comment on above: Performed By: #### C BCA, BMP #### [facility] ([id number]) [address], [address] [place] [address] Hematocrit (Bld) [Volume fraction] 38.7 % Normal 35-47 [facility] Comment on above: Performed By: #### C BCA, BMP #### [facility] ([id number]) [address], [address] [place] [address] Hemoglobin (Bld) [Mass/Vol] 13.0 g/dL Normal 11.7-15.5 [facility] Comment on above: Performed By: #### C BCA, BMP #### [facility] ([id number]) [address], [address] [place] [address] Lymphocytes (Bld) [#/Vol] 0.8 10*3/uL Low 1.0-3.5 [facility] Comment on above: Performed By: #### C BCA, BMP #### [facility] ([id number]) [address], [address] [place] [address] Lymphocytes/100 WBC (Bld) 5.9 % Normal [facility] Comment on above: Performed By: #### C BCA, BMP #### [facility] ([id number]) [address], [address] [place] [address] MCH (RBC) [Entitic mass] 29.7 pg Normal 27-34 [facility] Comment on above: Performed By: #### C BCA, BMP #### [facility] ([id number]) [address], [address] [place] [address] MCHC (RBC) [Mass/Vol] 33.6 g/dL Normal 32-36 [facility] Comment on above: Performed By: #### C BCA, BMP #### [facility] ([id number]) [address], [address] [place] [address] MCV (RBC) [Entitic vol] 88 fL Normal 80-100 [facility] Comment on above: Performed By: #### C BETTY, BMP #### [facility] ([id number]) [address], [address] [place] [address] Monocytes (Bld) [#/Vol] 0.4 10*3/uL Normal 0-0.9 [facility] Comment on above: Performed By: #### C BETTY, BMP #### [facility] ([id number]) [address], [address] [place] [address] Monocytes/100 WBC (Bld) 3.3 % Normal [facility] Comment on above: Performed By: #### C BETTY, BMP #### [facility] ([id number]) [address], [address] [place] [address] Neutrophils/100 WBC (Bld) 90.7 % Normal [facility] Comment on above: Performed By: #### C BETTY, BMP #### [facility] ([id number]) [address], [address] [place] [address] Platelet mean volume (Bld) [Entitic vol] 6.4 fL Low 7-12 [facility] Comment on above: Performed By: #### C BETTY, BMP #### [facility] ([id number]) [address], [address] [place] [address] Platelets (Bld) [#/Vol] 349 10*3/uL Normal 150-450 [facility] Comment on above: Performed By: #### C BETTY, BMP #### [facility] ([id number]) [address], [address] [place] [address] RBC COUNT 4.37 X10E12/L Normal 3.80-5.20 [facility] Comment on above: Performed By: #### C BETTY, BMP #### [facility] ([id number]) [address] [facility], [address] [place] [address] WBC (Bld) [#/Vol] 13.8 10*3/uL High 4.0-11.0 [facility] Comment on above: Performed By: #### C BCA, BMP #### [facility] ([id number]) [address] [facility] [place] [address] HCG ( test) Ql (U)o n 07-06-2023 Beta HCG ( test) Ql (U) Negative Normal NEG [facility] Comment on above: Performed By: #### 2 106-3 #### [facility] ([id number]) [address] [place] [address] Surgical Pathologyon 024 Surgical Pathology Normal [facility] Comment on above: Result Comment: [facility] [address] [place] [address] Surgical Pathology Consultation Patient Name:GISSEL DEL ROSARIO:1985 (Age: 38)Gender:FTaken:07/06/2023eported:07/10/2023hysician(s):Luís Andres M.D. ([phone])Copy To: Rec. #:[id number]: #[id number] Final Pathologic Diagnosis Bilateral fallopian tubes and [...] Out gp/07/10/2023Wagner Duncan MD Interpretation performed at [facility], [address] [place] [address], License number: [id number]. Clinical History Pelvic pain. Gross Description Received in formalin labeled TWISS, bilateral tubes and ovaries and abdominal wall [...] each K 1 lymph node, serially sectioned (11,ss,[id number], m2) . /07/07/2023O Microscopic Findings Microscopic examination performed. Specimen(s) Received Bilateral tubes and ovaries and abdominal wall mass Fee Codes(s): 1; 164[address] CBC AND AUTO DIFFon 06-26-19 ABSOLUTE BASOPHIL 0.1 X10E9/L Normal 0.0-0.2 [facility] Comment on above: Performed By: #### C BCA #### [facility] ([id number]) [address], [address] [place] [address] ABSOLUTE NEUTROPHIL 6.4 X10E9/L Normal 1.5-6.6 [facility] Comment on above: Performed By: #### C BCA #### [facility] ([id number]) [address], [address] [place] [address] Basophils/100 WBC (Bld) 0.6 % Normal [facility] Comment on above: Performed By: #### C BCA #### [facility] ([id number]) [address], [address] [place] [address] Eosinophils (Bld) [#/Vol] 0.1 10*3/uL Normal 0.0-0.4 [facility] Comment on above: Performed By: #### C BCA #### [facility] ([id number]) [address], [address] [place] [address] Eosinophils/100 WBC (Bld) 0.7 % Normal [facility] Comment on above: Performed By: #### C BCA #### [facility] ([id number]) [address], [address] [place] [address] Erythrocyte distribution width (RBC) [Ratio] 14.6 % Normal 11.5-15.0 [facility] Comment on above: Performed By: #### C BCA #### [facility] ([id number]) [address], [address] [place] [address] Hematocrit (Bld) [Volume fraction] 42.5 % Normal 35-47 [facility] Comment on above: Performed By: #### C BCA #### [facility] ([id number]) [address], [address] [place] [address] Hemoglobin (Bld) [Mass/Vol] 14.2 g/dL Normal 11.7-15.5 [facility] Comment on above: Performed By: #### C BCA #### [facility] ([id number]) [address], [address] [place] [address] Lymphocytes (Bld) [#/Vol] 3.7 10*3/uL High 1.0-3.5 [facility] Comment on above: Performed By: #### C BCA #### [facility] ([id number]) [address], [address] [place] [address] Lymphocytes/100 WBC (Bld) 33.4 % Normal [facility] Comment on above: Performed By: #### C BCA #### [facility] ([id number]) [address], [address] [place] [address] MCH (RBC) [Entitic mass] 29.3 pg Normal 27-34 [facility] Comment on above: Performed By: #### C BCA #### [facility] ([id number]) [address], [address] [place] [address] MCHC (RBC) [Mass/Vol] 33.4 g/dL Normal 32-36 [facility] Comment on above: Performed By: #### C BCA #### [facility] ([id number]) [address], [address] [place] [address] MCV (RBC) [Entitic vol] 88 fL Normal 80-100 [facility] Comment on above: Performed By: #### C BCA #### [facility] ([id number]) [address] [place] [address] Monocytes (Bld) [#/Vol] 0.7 10*3/uL Normal 0-0.9 [facility] Comment on above: Performed By: #### C BCA #### [facility] ([id number]) [address], [address] [place] [address] Monocytes/100 WBC (Bld) 6.5 % Normal [facility] Comment on above: Performed By: #### C BCA #### [facility] ([id number]) [address], [address] [place] [address] Neutrophils/100 WBC (Bld) 58.8 % Normal [facility] Comment on above: Performed By: #### C BCA #### [facility] ([id number]) [address], [address] [place] [address] Platelet mean volume (Bld) [Entitic vol] 6.6 fL Low 7-12 [facility] Comment on above: Performed By: #### C BCA #### [facility] ([id number]) [address] [address] [place] [address] Platelets (Bld) [#/Vol] 367 10*3/uL Normal 150-450 [facility] Comment on above: Performed By: #### C BCA #### [facility] ([id number]) [address] [address] [place] [address] RBC COUNT 4.84 X10E12/L Normal 3.80-5.20 [facility] Comment on above: Performed By: #### C BCA #### [facility] ([id number]) [address], [facility] [address] [place] [address] WBC (Bld) [#/Vol] 11.0 10*3/uL Normal 4.0-11.0 [facility] Comment on above: Performed By: #### C BCA #### [facility] ([id number]) [address] [address] [place] [address] MR PELVIS WO CONTon 06-16-19 MR PELVIS [...] cm with multiple foci of T1 hyperintensity (10/14) and mild ill-defined T2 hyperintensity (12/19). Nonspecific nodular area of T1 and T2 isointensity posterior to the rectus muscle within the rectus sheath measuring 3.4 x 1.2 x 4.7 cm (7/15) has associated vascular flow voids, better seen [...] Rodrigez MD on 06/16/2023 11:29 AM Normal [facility] CT ABD/PELVIS WO CONon 08-05 CT ABD/PELVIS [...] JAYDEN MORGAN Date: 2022-08-05 16:55 Normal [facility] QUANTIFERON TB GOLD PLUSon 0 06-18-2022 QuantiFERON Criteria Comment Normal [facility] Comment on above: Result Comment: Gagandeep [...] test. Performed By: #### Q NTTB #### [facility] [address] [place] [address] Dr. Yovanny Alcantara QuantiFERON Incubation Incubation performed. Normal [facility] Comment on above: Performed By: #### Q NTTB #### [facility] [address] [place] [address] Dr. Yovanny Alcantara QuantiFERON Mitogen Value >10.00 Normal [facility] Comment on above: Performed By: #### Q NTTB #### [facility] [address] [place] [address] Dr. Yovanny Alcantara QuantiFERON Nil Value 0.03 IU/mL Normal [facility] Comment on above: Performed By: #### Q NTTB #### [facility] [address] [place] [address] Dr. Yovanny Alcantara QuantiFERON TB1 Ag Value 0.05 IU/mL Normal [facility] Comment on above: Performed By: #### Q NTTB #### [facility] [address] [place] [address] Dr. Yovanny Alcantara QuantiFERON TB2 Ag Value 0.06 IU/mL Normal [facility] Comment on above: Performed By: #### Q NTTB #### [facility] [address] [address] [address] Yovanny Alcantara QuantiFERON-TB Gold Plus Negative Normal Negative [facility] Comment on above: Result Comment: No r esponse to M tuberculosis antigens detected. Infection with M tuberculosis is unlikely, but high risk individuals should be considered for additional testing (ATS/IDSA/CDC Clinical Practice Guidelines, 2017). The reference range is an Antigen minus Nil result of <0.35 IU/mL. Chemiluminescence immunoassay methodology Performed By: #### Q NTTB #### [facility] [address] [address] [address] Yovanny Alcantara HEPATITIS B SURFACE ANTIBODY , QUANTon 06-17-2022 Hepatitis B Surf AB Quant 3.5 mIU/mL Critically low Immunity>9.9 [facility] Comment on above: Result Comment: Stat us of Immunity Anti-HBs Level Inconsistent with Immunity 0.0 - 9.9 Consistent with Immunity >9.9 Performed By: #### H EPBSRF ####[facility] [address] [address]Dr. Yovanny Alcantara MMR IMMUNITYon 06-17-2022 Mumps Abs, IgG 17.4 AU/mL Normal Immune >10.9 [facility] Comment on above: Result Comment: Nega tive <9.0 Equivocal 9.0 - 10.9 Positive >10.9 A positive result generally indicates past exposure to Mumps virus or previous vaccination. Performed By: #### M MRIMMU #### [facility] [id number] Yovanny Alcantara Rubella Antibodies, IgG 1.68 index Normal Immune >0.99 [facility] Comment on above: Result Comment: Non- immune <0.90 Equivocal 0.90 - 0.99 Immune >0.99 Performed By: #### M MRIMMU #### [facility] [address] [address] [address] Yovanny Alcantara Rubeola Ab, IgG 108.0 AU/mL Normal Immune >16.4 [facility] Comment on above: Result Comment: Nega tive <13.5 Equivocal 13.5 - 16.4 Positive >16.4 Presence of antibodies to Rubeola is presumptive evidence of immunity except when acute infection is suspected. Performed By: #### M MRIMMU #### [facility] [address] [place], [place] [address] Dr. Yovanny Alcantara VARICELLA IGG ABon 3 Varicella Zoster IgG 947 index Normal Immune >165 [facility] Comment on above: Result Comment: Nega tive <135 Equivocal 135 - 165 Positive >165 A positive result generally indicates exposure to the pathogen or administration of specific immunoglobulins, but it is not indication of active infection or stage of disease. Performed By: #### V ARCEL ####[facility] [address] [place], [place] [address]KcDr. Yovanny Alcantara Consent Formson 05-01-2022 Consent Forms [id number] .00OTGTIFF [facility] US CESIA DOP LEG RTon 12-31-19 22 [...] by: FRANTZ COVARRUBIAS Date: 2021-12-30 10:39 Normal [facility] CBC AUTO DIFFon 12-29-2021 BASO # 0.1 103/ul Normal 0.0-0.1 [facility] Comment on above: Performed By: #### C BC #### [facility] [address] [address] [address] Yovanny Alcantara Basophils/100 WBC (Bld) 0.7 % Normal 0.2-2.0 [facility] Comment on above: Performed By: #### C BC #### [facility] [address] [address] [address] Yovanny Alcantara EO # 0.2 103/ul Normal 0.0-0.7 [facility] Comment on above: Performed By: #### C BC #### [facility] [address] [address] [address] Yovanny Alcantara Eosinophils/100 WBC (Bld) 1.3 % Normal 0.9-7.0 [facility] Comment on above: Performed By: #### C BC #### [facility] [address] [place] [address] Dr. Yovanny Alcantara Erythrocyte distribution width (RBC) [Ratio] 13.9 % Normal 11.0-15.0 [facility] Comment on above: Performed By: #### C BC #### [facility] [address] [place] [address] Dr. Yovanny Alcantara Hematocrit (Bld) [Volume fraction] 43.7 % Normal 36.0-48.0 [facility] Comment on above: Performed By: #### C BC #### [facility] [address] [place] [address] Dr. Yovanny Alcantara Hemoglobin (Bld) [Mass/Vol] 13.8 g/dL Normal 12.0-16.0 [facility] Comment on above: Performed By: #### C BC #### [facility] [address] [place] [address] Dr. Yovanny Alcantara IG # 0.11 10e3/ul Critically high 0.00-0.03 [facility] Comment on above: Performed By: #### C BC #### [facility] [address] [address] [address] Yovanny Alcantara IG % 0.8 % Critically high 0.0-0.5 [facility] Comment on above: Performed By: #### C BC #### [facility] [address] [address] [address] Yovanny Alcantara LYMPH # 3.7 103/ul Normal 1.2-3.8 [facility] Comment on above: Performed By: #### C BC #### [facility] [address] [address] [address] Yovanny Alcantara Lymphocytes/100 WBC (Bld) 27.0 % Normal 20.5-60.0 [facility] Comment on above: Performed By: #### C BC #### [facility] [address] [place] [address] Dr. Yovanny Alcantara MANUAL DIFF REQ NO Normal [facility] Comment on above: Performed By: #### C BC #### [facility] [address] [place] [address] Dr. Yovanny Alcantara MCH (RBC) [Entitic mass] 26.7 pg Normal 26.7-34.0 [facility] Comment on above: Performed By: #### C BC #### [facility] [address] [place] [address] Dr. Yovanny Alcantara MCHC (RBC) [Mass/Vol] 31.6 g/dL Normal 29.9-35.2 [facility] Comment on above: Performed By: #### C BC #### [facility] [address] [place] [address] Dr. Yovanny Alcantara MCV (RBC) [Entitic vol] 84.5 fL Normal 81.0-99.0 [facility] Comment on above: Performed By: #### C BC #### [facility] [address] [place] [address] Dr. Yovanny Alcantara MONO # 0.9 103/ul Critically high 0.3-0.8 [facility] Comment on above: Performed By: #### C BC #### [facility] [address] [place] [address] Dr. Yovanny Alcantara Monocytes/100 WBC (Bld) 6.5 % Normal 1.7-12.0 [facility] Comment on above: Performed By: #### C BC #### [facility] [address] [id number] Yovanny Alcantara NEUT # 8.8 103/ul Critically high 1.4-6.5 [facility] Comment on above: Performed By: #### C BC #### [facility] [address] [place], [place] [address] Dr. Yovanny Alcantara Neutrophils/100 WBC (Bld) 63.7 % Normal 43.0-75.0 [facility] Comment on above: Performed By: #### C BC #### [facility] [address] [place] [address] Dr. Yovanny Alcantara Platelet mean volume (Bld) [Entitic vol] 8.3 fL Critically low 9.5-13.5 [facility] Comment on above: Performed By: #### C BC #### [facility] [address] [place] [address] Dr. Yovanny Alcantara PLT 364 103/ul Normal 150-450 [facility] Comment on above: Performed By: #### C BC #### [facility] [address] [place] [address] Dr. Yovanny Alcantara RBC 5.17 106/ul Normal 4.20-5.40 [facility] Comment on above: Performed By: #### C BC #### [facility] [address] [place] [address] Dr. Yovanny Alcantara WBC 13.8 103/ul Critically high 4.0-11.0 [facility] Comment on above: Performed By: #### C BC #### [facility] [address] [place] [address] Dr. Yovanny Alcantara CTA CHEST WO W CONon -28-2 022 CTA CHEST WO W CON EXAM: [...] AMINA WU Date: 2021-12-29 01:20 Normal [facility] D-DIMERon 12-29-2021 D-DIMER 0.68 mg/L FEU Critically high <=0.59 [facility] Comment on above: Performed By: #### P TT, PT, DDIM ####[facility] [address] [address]Dr. Yovanny Alcantara D-DIMER COMMENTS SEE BELOW Normal [facility] Comment on above: Result Comment: Incr eases [...] Performed By: #### P TT, PT, DDIM ####[facility] [address] [place], [place] [address]QqDr. Yovanny Alcantara ER URINE PROFILEon 2 Bilirubin Ql (U) Negative Normal NEGATIVE [facility] Comment on above: Performed By: #### E RUR #### [facility] [address] [place], [place] [address] Dr. Yovanny Alcantara Clarity (U) CLEAR Normal CLEAR [facility] Comment on above: Performed By: #### E RUR #### [facility] [address] [place] [address] Dr. Yovanny Alcantara Color (U) YELLOW Normal YELLOW [facility] Comment on above: Performed By: #### E RUR #### [facility] [address] [place] [address] Dr. Yovanny LONG A micrscopic examination will be performed if indicated. Normal [facility] Comment on above: Performed By: #### E RUR #### [facility] [address] [place] [address] Dr. Yovanny Alcantara Glucose Ql (U) Negative Normal NEGATIVE [facility] Comment on above: Performed By: #### E RUR #### [facility] [address] [place] [address] Dr. Yovanny Alcantara Hemoglobin Ql (U) Negative Normal NEGATIVE [facility] Comment on above: Performed By: #### E RUR #### [facility] [address] [place] [address] Dr. Yovanny Alcantara Ketones Ql (U) Negative Normal NEGATIVE [facility] Comment on above: Performed By: #### E RUR #### [facility] [address] [place] [address] Dr. Yovanny Alcantara LEUKOCYTES Negative Normal NEGATIVE [facility] Comment on above: Performed By: #### E RUR #### [facility] [address] [place] [address] Dr. Yovanny Alcantara Nitrite Ql (U) Negative Normal NEGATIVE [facility] Comment on above: Performed By: #### E RUR #### [facility] [address] [place] [address] Dr. Yovanny Alcantara pH (U) 6.5 [pH] Normal 5-9 [facility] Comment on above: Performed By: #### E RUR #### [facility] [address] [place] [address] Dr. Yovanny Alcantara SPEC GRAVITY 1.020 Normal 1.005-<=1.025 [facility] Comment on above: Performed By: #### E RUR #### [facility] [address] [address] [address] Yovanny Alcantara UA PROTEIN Negative Normal NEGATIVE/ TRACE [facility] Comment on above: Performed By: #### E RUR #### [facility] [address] [address] [address] Yovanny Alcantara UR MICRO IND NOT INDICATED Normal [facility] Comment on above: Performed By: #### E RUR #### [facility] [address] [address] [address] Yovanny Alcantara Urobilinogen Qn (U) 0.2 {Eunice'U}/dL Normal 0.2 - 1.0 [facility] Comment on above: Performed By: #### E RUR #### [facility] [address] [place] [address] Dr. Yovanny Alcantara PROTIMEon 12-29-2021 INR Coag (PPP) [Relative time] 0.94 {INR} Normal [facility] Comment on above: Performed By: #### P TT, PT, DDIM ####[facility] [address] [place], [place] [address]Dr. Yovanny Alcantara INR GUIDELINES SEE BELOW Normal [facility] Comment on above: Result Comment: JENNIFER RED INR: 2.0 - 3.0 CONDITIONS NOT LISTED BELOW 2.5 - 3.5 FOR PROSTHETIC HEART VALVE REPLACEMENT 2.5 - 3.5 RECURRENT THROMBOSIS Performed By: #### P TT, PT, DDIM ####[facility] [address] [place], [place] [address]Dr. Yovanny Alcantara PT Coag (PPP) [Time] 10.2 s Normal 9.0-11.6 [facility] Comment on above: Performed By: #### P TT, PT, DDIM ####[facility] [address] [address]Dr. Yovanny Alcantara PTTon 12-29-2021 aPTT Coag (Bld) [Time] 28.2 s Normal 22.3-36.2 [facility] Comment on above: Performed By: #### P TT, PT, DDIM ####[facility] [address] [place], [place] [address]Le. Yovanny Alcantara .QC Respiratory Panel 2.1 (B ioFire)on 11-19-2021 Internal Control-Resp Panel 2.1(BioFire) Pass [facility] Comment on above: Order Comment: Order ed by Discern. [[id number]] Performed By: #### [id number] #### [facility] (DEFAULT) [address] [place] [address] Consent Formson 11-08-2021 Consent Forms [id number] .00OTGTIFF [facility] .QC Respiratory Panel 2.1 (B ioFire)on 11-02-2021 Internal Control-Resp Panel 2.1(BioFire) Pass [facility] Comment on above: Order Comment: Order ed by Discern. [[id number]] Performed By: #### [id number] #### [facility] (DEFAULT) [address] [place] [address] XR LSPINE 2_3 VIEWSon 2021 XR LSPINE [...] by: ASHLEY CARRANZA Date: 2021-09-28 07:54 Normal [facility] US PELVIS AND TRANSVAGon US PELVIS [...] authenticated by: BRIAN SINGER Date: 2021-08-20 09:02 [facility] Consent Formson 05-16-2021 Consent Forms [id number] .00OTGTIFF [facility] .QC Respiratory Panel 2.1 (B ioFire)on 05-13-2021 Internal Control-Resp Panel 2.1(BioFire) Pass [facility] Comment on above: Order Comment: Order ed by Discern. [[id number]] Performed By: #### 6 [id number] #### [facility] (DEFAULT) [address] [place] [address] Vital Signs Date Time Vital Sign Value Performing Clinician Facility 12-23-2023 14:16-0400 Blood Pressure Location Bryant MENDEZ [facility] 12-23-2023 14:16-0400 Diastolic blood pressure 104 mm[Hg] Bryant MENDEZ [facility] 12-23-2023 14:16-0400 Heart rate 84 /min Bryant MENDEZ [facility] 12-23-2023 14:16-0400 Respiratory rate 16 /min Bryant MENDEZ [facility] 12-23-2023 14:16-0400 Systolic blood pressure 144 mm[Hg] Bryant MENDEZ [facility] 08-05-2023 10:57-0400 Body height 157.5 cm Dayanara Carroll PA [facility] 08-05-2023 10:57-0400 Body mass index (BMI) [Ratio] 28.34 kg/m2 [facility]ara Carroll [facility] 08-05-2023 10:57-0400 Body temperature 97.9 [degF] Dayanara Carroll [facility] 08-05-2023 10:57-0400 Body weight 70.31 kg Dayanara Carroll PA [facility] 08-05-2023 10:57-0400 Diastolic blood pressure 118 mm[Hg] Dayanara Carroll [facility] 08-05-2023 10:57-0400 Heart rate 115 /min Dayanara Carroll [facility] 08-05-2023 10:57-0400 Respiratory rate 18 /min Dayanara Carroll PA [facility] 08-05-2023 10:57-0400 SaO2% (BldA) [Mass fraction] 100 % Dayanara Carroll PA [facility] 08-05-2023 10:57-0400 Systolic blood pressure 149 mm[Hg] Dayanara Carroll PA [facility] 07-30-2023 14:43-0400 Body height 157.5 cm Basel Sharda PA Work Phone[facility] 07-30-2023 14:43-0400 Body mass index (BMI) [Ratio] 29.26 kg/m2 Basel Sharda PA Work Phone[facility] 07-30-2023 14:43-0400 Body weight 72.58 kg Basel Sharda PA Work Phone: [facility] 07-22-2023 08:52-0400 Body height 157.5 cm Dayanara Carroll PA [facility] Phone[facility] 07-22-2023 08:52-0400 Body mass index (BMI) [Ratio] 29.26 kg/m2 Dayanara Carroll PA Work Phone[facility] 07-22-2023 08:52-0400 Body weight 72.58 kg Dayanara Carroll PA [facility] 07-22-2023 08:52-0400 Diastolic blood pressure 95 mm[Hg] Dayanara Carroll PA [facility] 07-22-2023 08:52-0400 Heart rate 90 /min Dayanara Carroll PA [facility] 07-22-2023 08:52-0400 Respiratory rate 20 /min Dayanara Carroll PA [facility] 07-22-2023 08:52-0400 SaO2% (BldA) [Mass fraction] 100 % Dayanara Carroll PA [facility] 07-22-2023 08:52-0400 Systolic blood pressure 122 mm[Hg] Dayanara Carroll PA [facility] Phone[facility] 06-17-2023 08:25-0500 Body height 157.5 cm Luís Andres MD [facility] 06-17-2023 08:25-0500 Body mass index (BMI) [Ratio] 29.29 kg/m2 Luís Andres MD Work Phone[facility] 06-17-2023 08:25-0500 Body temperature 98.6 [degF] Luís Andres MD [facility] 06-17-2023 08:25-0500 Body weight 72.67 kg Luís Andres MD Work Phone: [facility] 06-17-2023 08:25-0500 Diastolic blood pressure 84 mm[Hg] Luís Andres MD Work Phone: [facility] 06-17-2023 08:25-0500 Heart rate 95 /min Luís Andres MD Work Phone: [facility] 06-17-2023 08:25-0500 SaO2% (BldA) [Mass fraction] 90 % Luís Andres MD Work Phone: [facility] 06-17-2023 08:25-0500 Systolic blood pressure 128 mm[Hg] Luís Andres MD Work Phone: [facility] 06-11-2023 15:12-0500 Body height 157.5 cm Joseph Sotelo MD Work Phone: [facility] 06-11-2023 15:12-0500 Body mass index (BMI) [Ratio] 28.53 kg/m2 Joseph Sotelo MD Work Phone: [facility] 06-11-2023 15:12-0500 Body temperature 97.81 [degF] Joseph Sotelo MD Work Phone: [facility] 06-11-2023 15:12-0500 Body weight 70.76 kg Joseph Sotelo MD Work Phone: [facility] 06-11-2023 15:12-0500 Diastolic blood pressure 60 mm[Hg] Joseph Sotelo MD Work Phone: [facility] 06-11-2023 15:12-0500 Heart rate 101 /min Joseph Sotelo MD Work Phone: [facility] 06-11-2023 15:12-0500 SaO2% (BldA) [Mass fraction] 99 % Joseph Sotelo MD Work Phone: [facility] 06-11-2023 15:12-0500 Systolic blood pressure 100 mm[Hg] Joseph Sotelo MD Work Phone: [facility] 06-03-2023 08:26-0500 Diastolic blood pressure 64 mm[Hg] Luís Andres MD Work Phone: [facility] 06-03-2023 08:26-0500 Systolic blood pressure 106 mm[Hg] Luís Andres MD Work Phone: [facility] 06-03-2023 08:12-0500 Body height 157.5 cm Luís Andres MD Work Phone: [facility] 06-03-2023 08:12-0500 Body mass index (BMI) [Ratio] 29.26 kg/m2 Luís Andres MD Work Phone: [facility] 06-03-2023 08:12-0500 Body weight 72.58 kg Luís Andres MD Work Phone: [facility] 03-24-2023 10:40-0500 Body height 154.1 cm Vu Juarez MD MPH Work Phone: [facility] 03-24-2023 10:40-0500 Body mass index (BMI) [Ratio] 31.92 kg/m2 Vu Juarez MD MPH Work Phone: [facility] 03-24-2023 10:40-0500 Body temperature 97.3 [degF] Vu Juarez MD MPH Work Phone: [facility] 03-24-2023 10:40-0500 Body weight 75.8 kg Vu Juarez MD MPH Work Phone: [facility] 03-24-2023 10:40-0500 Diastolic blood pressure 107 mm[Hg] Vu Juarez MD MPH Work Phone: [facility] 03-24-2023 10:40-0500 Heart rate 85 /min Vu Juarez MD MPH Work Phone: [facility] 03-24-2023 10:40-0500 Respiratory rate 16 /min Vu Juarez MD MPH Work Phone: [facility] 03-24-2023 10:40-0500 SaO2% (BldA) [Mass fraction] 98 % Vu Juarez MD MPH Work Phone: [facility] 03-24-2023 10:40-0500 Systolic blood pressure 148 mm[Hg] Vu Juarez MD MPH Work Phone: [facility] 09-05-2022 10:45-0400 Body height 155.57 cm Hilary Staton Other [employer] Other 09-05-2022 10:45-0400 Body mass index (BMI) [Ratio] 33.73 kg/m2 Hilary Staton Other [employer] Other 09-05-2022 10:45-0400 Body temperature 97.3 [degF] Hilary Staton Other [employer] Other 09-05-2022 10:45-0400 Body weight 81.65 kg Hilary Staton Other [employer] Other 09-05-2022 10:45-0400 Diastolic blood pressure 98 mm[Hg] Hilary Staton Other [employer] Other 09-05-2022 10:45-0400 Respiratory rate 18 /min Hilary Staton Other [employer] Other 09-05-2022 10:45-0400 SaO2% (BldA) [Mass fraction] 99 % Hilary Staton Other [employer] Other 09-05-2022 10:45-0400 Systolic blood pressure 139 mm[Hg] Hilary Staton Other [employer] Other 07-04-2014 13:22-0500 Blood Pressure Location Bryant MENDEZ [facility] 07-04-2014 13:22-0500 Body temperature 97.7 [degF] Bryant MENDEZ [facility] 07-04-2014 13:22-0500 Diastolic blood pressure 79 mm[Hg] Bryant MENDEZ [facility] 07-04-2014 13:22-0500 Heart rate 96 /min Bryant MENDEZ [facility] 07-04-2014 13:22-0500 Mean blood pressure 90 mm[Hg] Bryant MENDEZ [facility] 07-04-2014 13:22-0500 Respiratory rate 16 /min Bryant MENDEZ [facility] 07-04-2014 13:22-0500 SaO2% (BldA) [Mass fraction] 97 % Bryant MENDEZ [facility] 07-04-2014 13:22-0500 Systolic blood pressure 111 mm[Hg] Bryant MENDEZ [facility] Encounters Encounter Date Encounter Type Care Provider Facility Start: 12-23-2023 ambulatory Bryant Rawlsi ty:JONATHON Miles Start: 12-23-2023 End: 12-23-2023 Patient encounter procedure Bryant MENDEZ [facility] Start: 12-22-2023 ambulatory Bryant MENDEZ Facility :[facility] Start: 09-25-2023 End: 09-26-2023 ambulatory [facility] Start: 08-05-2023 End: 08-05-2023 ambulatory [facility] Start: 08-05-2023 End: 08-05-2023 Postop follow up visit related to original px Dayanara CORTES Work Phone: [facility] Comment on above: Encounter for postop erative care (Primary Dx); Menopausal symptoms Start: 08-03-2023 Telephone encounter Dayanara cooney PA Work Phone: [facility] Start: 07-30-2023 End: 07-30-2023 Postop follow up visit related to original px Isaac Robin PA Work Phone: [facility] Comment on above: Abdominal wall mass (Primary Dx) Start: 07-27-2023 Orders Only Dayanara Carroll PA Work Phone: [facility] Comment on above: Muscle spasms of bot h lower extremities (Primary Dx) Start: 07-22-2023 End: 07-22-2023 ambulatory [facility] Start: 07-22-2023 End: 07-22-2023 Postop follow up visit related to original px Dayanara Carroll PA Work Phone: [facility] Comment on above: Encounter for postop erative care (Primary Dx); Menopausal symptoms; Acute serous otitis media, recurrence not specified, unspecified laterality Start: 07-13-2023 Telephone encounter Sheyla Mendoza RN [facility] Start: 07-07-2023 End: 07-07-2023 Evaluation and management of inpatient ELSI PRABHJOT [facility] Start: 07-06-2023 End: 07-07-2023 Evaluation and management of inpatient LUÍS Nash MCKENNA [facility] Start: 06-29-2023 End: 06-29-2023 ambulatory JOSEPH SOTELO [facility] Start: 06-29-2023 End: 06-29-2023 [facility] Justina Nevarez Phone Call Provider 2 Lash[facility]Ad[facility] Start: 06-26-2023 End: 06-27-2023 ambulatory LUÍS Nash MCKENNA [facility] Start: 06-26-2023 Encounter for other preprocedural examination [facility] Start: 06-25-2023 Orders Only Luís Andres MD Work Phone: [facility] Comment on above: Preop testing (Prima ry Dx) Start: 06-25-2023 Patient encounter status Luís Andres MD Work Phone: [facility] Start: 06-17-2023 End: 06-17-2023 ambulatory [facility] Start: 06-17-2023 End: 06-17-2023 Office outpatient visit 40 minutes Luís Andres MD Work Phone: [facility] Comment on above: Pelvic mass (Primary Dx) Start: 2023 End: 06-16-2023 ambulatory [facility] Start: 06-11-2023 End: 06-11-2023 [facility] Start: 06-11-2023 End: 06-11-2023 Office outpatient visit 25 minutes Joseph Sotelo MD Work Phone: [facility] Comment on above: Benign essential hyp ertension (CMS/HCC) (Primary Dx); Sinus tachycardia; 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 Start: 06-11-2023 Bambeni flowsheet Joseph Sotelo MD Work Phone: [facility] Start: 06-11-2023 Golden flowsheet Joseph Sotelo MD Work Phone: [facility] Start: 06-03-2023 End: 06-03-2023 ambulatory [facility] Start: 06-03-2023 End: 06-03-2023 Office outpatient new 60 minutes Luís Andres MD Work Phone: [facility] Comment on above: Pelvic mass (Primary Dx); Endometriosis; 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; Pelvic pain Start: 05-22-2023 ambulatory [facility] Start: 05-20-2023 Telephone encounter Shyela Mendoza RN [facility] Start: 05-19-2023 End: 05-19-2023 ambulatory COMPA VALENZUELA Not Available Start: 05-06-2023 End: 05-06-2023 ambulatory JOSEPH SOTELO Not Available Start: 04-08-2023 End: 04-08-2023 Office outpatient new 45 minutes Jeremy Jang MD Work Phone: [facility] Comment on above: Endometrioma Start: 04-08-2023 End: 04-08-2023 ambulatory JOSEPH SOTELO Not Available Start: 03-24-2023 End: 03-24-2023 ambulatory VU JUAREZ [facility] Start: 03-24-2023 End: 03-24-2023 Office outpatient new 60 minutes Vu Juarez MD MPH Work Phone: [facility] Comment on above: Endometrioma (Primar y Dx) Start: 09-05-2022 End: 09-05-2022 ambulatory Hilary Staton Other [facility] Other Start: 09-05-2022 Office outpatient ne w 20 minutes Hilary Staton [facility] Start: 08-05-2022 End: 08-06-2022 ambulatory SHAIKH Neema KRISHNA Facility:[facility] Start: 06-16-2022 End: 06-16-2022 ambulatory AYDIN CAMACHO Facility:[facility] Start: 04-23-2022 End: 04-24-2022 ambulatory Kristopher Guerrero Facility:[facility] Start: 12-30-2021 End: 12-31-[address] JOSEPH SOTELO Facility:[facility] Start: 12-28-2021 End: 12-29-[address] JOSEPH SOTELO Facility:[facility] Start: 11-19-2021 End: 11-20-2021 ambulatory JOSEPH SOTELO Facility:[facility] Start: 11-02-2021 End: 11-02-2021 ambulatory JOSEPH SOTELO Facility:[facility] Start: 09-27-2021 End: 09-28-[address] JOSEPH SOTELO Facility:[facility] Start: 08-20-2021 End: 08-21-[address] JOSEPH SOTELO Facility:[facility] Start: 05-14-2021 End: 05-14-2021 ambulatory JOSEPH SOTELO Facility:[facility] Procedures Date Procedure Procedure Detail Performing Clinician Start: 07-22-2023 Follow-up visit Follow-up DAYANARA JEFFREYNE Start: 07-06-2023 Adult depression screening assessment Sheyla Mendoza RN Start: 07-13-2014 Tonsillectomy Bryant MENDEZ Colonoscopy Bryant MENDEZ Comment on above: x2 Endometrial ablation Bryant MENDEZ Esophagogastroduodenoscopy P soledad MENDEZ Hysterectomy Bryant MENDEZ Ligation of fallopian tube P soledad MENDEZ Comment on above: essure procedure Plan of Treatment Date Care Activity Detail Author Start: 2036 Zoster Vaccines (1 of 2) Zoste r Vaccines (1 of 2) [facility] Start: 07-28-2027 DTaP,Tdap and Td Vaccines (6 - Td or Tdap) DTaP,Tdap and Td Vaccines (6 - Td or Tdap) [facility] Start: 07-28-2027 DTaP/Tdap/Td Vaccine s (6 - Td or Tdap) DTaP/Tdap/Td Vaccines (6 - Td or Tdap) [facility] Start: 08-04-2024 Adult BMI Screening Adult BMI Screen ing [facility] Start: 07-29-2024 Adult BMI Screening Adult BMI Screen ing [facility] Start: 07-29-2024 Tobacco Screening Tobacco Screening [facility] Start: 07-21-2024 Adult BMI Screening Adult BMI Screen ing [facility] Start: 07-21-2024 Tobacco Screening Tobacco Screening [facility] Start: 07-06-2024 Adult BMI Screening Adult BMI Screen ing [facility] Start: 07-05-2024 Depression Screening Depression Scre ening [facility] Start: 07-05-2024 Tobacco Screening Tobacco Screening [facility] Start: 06-29-2024 Tobacco Screening Tobacco Screening [facility] Start: 06-17-2024 Adult BMI Screening Adult BMI Screen ing [facility] Start: 06-17-2024 Tobacco Screening Tobacco Screening [facility] Start: 06-03-2024 Adult BMI Screening Adult BMI Screen ing [facility] Start: 06-03-2024 Tobacco Screening Tobacco Screening [facility] Start: 01-03-2024 Influenza vaccination Influenza Vacc ine [facility] Start: 08-10-2023 End: 08-10-2023 Patient encounter procedure 08/10/2023 2:45 PM EDT Office Visit [facility] [address] [place] [address] Joseph Sotelo MD [address] [place] [address] [facility] Start: 08-05-2023 End: 08-05-2023 Patient encounter procedure [facility] Start: 07-30-2023 End: 07-30-2023 Patient encounter procedure 07/30/2023 3:00 PM EDT Office Visit [facility] [address] [place] [address] [facility] Start: 07-22-2023 End: 07-22-2023 Patient encounter procedure 07/22/2023 9:00 AM EDT Office Visit [facility] [address] [place] [address] Dayanara Carroll PA [address] [place] [address] [facility] Start: 07-06-2023 End: 07-06-2023 Admission to same day surgery center [facility] Comment on above: DAVINCI SALPINGO OOP HORECTOMY/ ABDOMINAL WALL RESECTION ENDOMETRIOSIS DAVINCI SALPINGO OOP HORECTOMY Start: 07-06-2023 End: 07-06-2023 DAVINCI SALPINGO OOPHORECTOMY DAVINCI SALPINGO OOPHORECTOMY PELVIC PAIN 07/06/2023 10:00 AM EST [facility] Start: 07-06-2023 End: 07-06-2023 Laps fulg/exc ovary viscera/peritoneal surface DAVINCI FULGURATION ENDOMETRIAL IMPLANTS PELVIC PAIN 07/06/2023 10:00 AM EST [facility] Start: 07-06-2023 Subsequent hospital visit by physician 07/06/2023 10:00 AM EST Hospital Encounter [facility] [address] [place] [phone] Luís Andres MD [address] [place] [address], [address] [place] [address] [facility] Start: 07-06-2023 End: 07-06-2023 Unlisted laparoscopic px abd pertoneum & omentum DAVINCI RESECTION MASS PERITONEAL PELVIC PAIN 07/06/2023 10:00 AM EST [facility] Start: 06-29-2023 End: 06-29-2023 Admission to establishment 06/29/2023 12:45 PM EST Support Visit [facility]-Admission Clinic On [address] [address] [facility] Start: 06-17-2023 End: 06-17-2023 Patient encounter procedure 06/17/2023 8:30 AM EST Office Visit [facility] [address] [place] [address] [address] [place] [phone] Luís Andres MD [address] [place] [address], [address] [place] [address] [facility] Start: 06-11-2023 End: 06-11-2023 Patient encounter procedure 06/11/2023 3:15 PM EST Office Visit [facility] [address] [place] [phone] Joseph Sotelo MD [address] [place] [address] Arrived [facility] Comment on above: Arrived Start: 06-03-2023 End: 06-03-2024 MR Pelvis WO contrast MR pelvis without contrast Imaging Routine Pelvic mass Endometriosis Expected: 06/03/2023, Expires: 06/03/2024 [facility] Work Phone: Comment on above: Expected: 06/03/2023 , Expires: 06/03/2024 Start: 06-03-2023 End: 06-03-2023 Patient encounter procedure 06/03/2023 8:00 AM EST Office Visit [facility] [address] [place] [address] [address] [place] [address] Luís Andres MD [address] [place] [address] [facility] Start: 01-02-2023 COVID-19 Vaccine ( season) COVID-19 Vaccine ( season) [facility] Start: 01-02-2023 Influenza vaccination [facility] Start: 04-26-2021 COVID-19 Vaccine (4 - Moderna series) COVID-19 Vaccine (4 - Moderna series) [facility] Start: 12-24-2017 Varicella vaccination Varicell a Vaccines (2 of 2 - 13+ 2-dose series) [facility] Start: 2007 Screening for malign ant neoplasm of cervix [facility] Start: 2004 Adult BMI Follow Up Plan Adult BMI Follow Up Plan [facility] Start: 2004 Adult BMI Screening Adult BMI Screen ing [facility] Start: 2004 Diabetes mellitus screening Diabetes Screening [facility] Start: 2004 Hepatitis C screening Hepatitis C Sc reening [facility] Start: 1998 Depression Screening Depression Scre ening [facility] Start: 1998 Tobacco Screening Tobacco Screening [facility] Start: 1986 HIV screening HIV Screening [facility] Start: 1986 Lipid panel Lipid Panel [facility] Start: 1986 Yearly Adult Physical Yearly Adult P hysical [facility] End: 06-25-2024 CBC W Auto Differential panel - Blood CBC with auto diff Lab Routine Preop testing 1 Occurrences starting 06/25/2023 until 06/25/2024 [facility] Work Phone: Comment on above: 1 Occurrences starti ng 06/25/2023 until 06/25/2024 Immunizations Immunization Date Immunization Notes Care Provider Fa cili 02-18-2021 influenza, injectabl e, quadrivalent, preservative free Sheyla Mendoza RN [facility] 02-18-2021 influenza virus vaccine, unspecified formulation Vu Juarez MD MPH Work Phone: [facility] Work Phone: 01-31-2020 influenza, injectabl e, quadrivalent, preservative free Sheyla Mendoza RN [facility] 01-31-2020 influenza virus vaccine, unspecified formulation Sheyla Mendoza RN [facility] 01-29-2020 influenza, injectabl e, quadrivalent, preservative free Sheyla Mendoza RN [facility] 01-13-2019 influenza, injectabl e, quadrivalent, preservative free Sheyla Mendoza RN [facility] 01-01-2018 influenza, injectabl e, quadrivalent, preservative free Sheyla Mendoza RN [facility] 11-26-2017 hepatitis B vaccine, adult dosage Sheyla Mendoza RN [facility] 11-26-2017 varicella virus vaccine Vu Juarez MD MPH Work Phone: [facility] Work Phone: 07-27-2017 hepatitis B vaccine, adult dosage Sheyla Mendoza RN [facility] 07-27-2017 tetanus toxoid, reduced diphtheria toxoid, and acellular pertussis vaccine, adsorbed Sheyla Mendoza RN [facility] 01-11-2014 influenza, seasonal, injectable, preservative free Hilary Staton Other [facility] Other 12-28-1998 hepatitis B vaccine, pediatric or pediatric/adolescent dosage Sheyla Mendoza RN [facility] 12-28-1998 measles, mumps and rubella virus vaccine Sheyla Mendoza RN [facility] 12-28-1998 TD(adult) unspecifie d formulation Sheyla Mendoza RN [facility] 07-01-1991 diphtheria, tetanus toxoids and pertussis vaccine Sheyla Mendoza RN [facility] 07-01-1991 trivalent poliovirus vaccine, live, oral Sheyla Mendoza RN [facility] 01-30-1989 diphtheria, tetanus toxoids and pertussis vaccine Sheyla Mendoza RN [facility] 01-30-1989 measles, mumps and rubella virus vaccine Sheyla Mendoza RN [facility] 1986 diphtheria, tetanus toxoids and pertussis vaccine Sheyla Mendoza RN [facility] 1986 trivalent poliovirus vaccine, live, oral Sheyla Mendoza RN [facility] 1986 diphtheria, tetanus toxoids and pertussis vaccine Sheyla Mendoza RN [facility] 1986 trivalent poliovirus vaccine, live, oral Sheyla Mendoza [facility] Payers Date Payer Category Payer Unknown [id number] 2017 [facility] GTFAN [id number] 2014 Unknown [id number] 1986 Unknown [id number] 2.16.84 0.1.330893.3.579.2.593 1986 Unknown [id number] 2.16.84 0.1.806988.3.579.2.593 1986 Unknown [id number] 2.16.84 0.1.202059.3.579.2.593 1986 Unknown [id number] 2.16.84 0.1.179045.3.579.2.593 1986 Unknown [id number] 2.16.84 0.1.997301.3.579.2.593 1986 Unknown [id number] 2.16.8 40.1.341392.3.579.2.1245 1986 Unknown [id number] 2.16.84 0.1.795553.3.579.2.6 1986 Unknown [id number] 2.16.84 0.1.965549.3.579.2.1285 1986 Unknown [id number] 2.16.84 0.1.380379.3.579.2.9 1986 Unknown [id number] 2.16.84 0.1.000065.3.579.2.9 1986 Unknown [id number] 2.16.840 .1.328699.3.579.2.9 1986 Unknown [id number] 2.16.840 .1.304039.3.579.2.9 1986 Unknown [id number] 2.16.8 40.1.881653.3.579.2.1285 1986 Unknown [id number] 2.16.8 40.1.592105.3.579.2.1285 1986 Unknown [id number] 2.16.8 40.1.941234.3.579.2.1285 1986 Unknown [id number] 2.16.8 40.1.048060.3.579.2.1285 1986 Unknown [id number] 2.16.8 40.1.224987.3.579.2.1285 1986 Unknown [id number] 2.16.8 40.1.025982.3.579.2.1285 1986 Unknown [id number] 2.16.8 40.1.268543.3.579.2.1285 1986 Unknown [id number] 2.16.8 40.1.646439.3.579.2.1285 1986 Unknown [id number] 2.16.8 40.1.047731.3.579.2.1286 1986 Unknown [id number] 2.16.8 40.1.382110.3.579.2.1286 1986 Unknown [id number] 2.16.8 40.1.317883.3.579.2.1286 1986 Unknown [id number] 2.16.8 40.1.391115.3.579.2.1286 1986 Unknown [id number] 2.16.8 40.1.733090.3.579.2.727 1986 Unknown [id number] 2.16.8 40.1.486300.3.579.2.727 1959 Self-pay 1959 Unknown [id number] Unknown [id number] 2.16.84 0.1.462259.3.579.2.593 Social History Date Type Detail Facility Unknown if ever smoked [facility] Other Start: 05-30-2020 End: 04-08-2023 Sex Assigned At [facility] Tobacco smoking stat NHIS Tobacco smoking consumption unknown [facility] Work Phone: Start: 1986 Sex Assigned At Not on file [facility] Work Phone: Start: 03-14-2023 End: 04-08-2023 Exposure to SARS-CoV-2 (event) Not sure [facility] Start: 04-08-2023 End: 12-23-2023 Tobacco smoking status NHIS Never smoked tobacco [facility] Start: 04-08-2023 End: 06-29-2023 Tobacco use and exposure Smokeless tobacco non-user [facility] Work Phone: Start: 04-08-2023 Alcohol intake Ex-drinker (finding) [facility] Work Phone: Start: 05-30-2020 End: 04-08-2023 History of Social function [facility] Start: 11-26-2018 End: 07-30-2023 Alcohol intake Current drinker of alcohol (finding) [facility] Housing Instability Unknown [facility] Start: 11-02-2017 Alcohol Comment socially [facility] Start: 05-19-2023 End: 06-11-2023 Alcohol intake Lifetime [...] Healthcare History of tobacco use Passive smoker [facility] Start: 06-29-2023 Alcohol Comment 0-1 per month [facility] Medical Equipment Procedure Code Equipment Code Equipment Origin al Text Equipment Identifier Dates Mesh [id number] Flt Vcl Abs Wvn Srg Hrn Repr - [id number] Start: 07-06-2023 Goals Date Patient Goal Desired Activity /State Personal health goal Comment on above: Formatting of this n ote might be different from the original. Evaluation of progress towards goal: Patient plans to discharge home with self care and with assistance from family. Functional Status Date Assessment Result Facility 12-23-2023 Functional Status N/A [facility] Clinical Notes 09-28-2021 to 12-23-2023 SEBASTIAN Wang - 08/05/2023 11:00 AM EDTTelephone Encounter - SEBASTIAN Wang - 08/03/2023 10:14 AM EDTTelephone Encounter - SEBASTIAN Wang - 08/03/2023 10:14 AM EDT Note Date & Type Note Facility 12-23-2023 Hospital Discharg e instructions Patient Education 12/23/2023 14:47:11 Laser Therapy for Kidney Stones, Care After Laser Therapy for Kidney Stones, Care After This sheet gives you information about how to care for yourself after your procedure. Your health care provider may also give you more specific instructions. If you have problems or questions, contact your health care provider. What can I expect after the procedure? After the procedure, it is common to have: Pain. A burning sensation while urinating. Small amounts of blood in your urine. A need to urinate frequently. Pieces of kidney stone in your urine. Mild discomfort when urinating that may be felt in the back. You may experience this if you have a flexible tube (stent) in your ureter. Follow these instructions at home: Medicines Take ucew-wgb-lopjyyx and prescription medicines only as told by your health care provider. If you were prescribed an antibiotic medicine, take it as told by your health care provider. Do not stop taking the antibiotic even if you start to feel better. Ask your health care provider if the medicine prescribed to you: ?Requires you to avoid driving or using heavy machinery. ?Can cause constipation. You may need to take actions to prevent or treat constipation, such as: ?Take snws-njh-jmebcso or prescription medicines. ?Eat foods that are high in fiber, such as beans, whole grains, and fresh fruits and vegetables. ?Limit foods that are high in fat and processed sugars, such as fried or sweet foods. Activity Return to your normal activities as told by your health care provider. Ask your health care provider what activities are safe for you. Do not drive for 24 hours if you were given a sedative during your procedure. General instructions If your health care provider approves, you may take a warm bath to ease discomfort and burning. Drink enough fluid to keep your urine pale yellow. Your health care provider may recommend drinking two 8 oz (237 mL) glasses of water per hour for a few hours after your procedure. You may be asked to strain your urine to collect any stone fragments that you pass. These fragments may be tested. Keep all follow-up visits as told by your health care provider. This is important. If you have a stent, you will need to return to your health care provider to have the stent removed. Contact a health care provider if you: Have pain or a burning feeling that lasts more than 2 days. Feel nauseous. Vomit more and more often. Have difficulty urinating. Have pain that gets worse or does not get better with medicine. Get help right away if: You are unable to urinate, even if your bladder feels full. You have: ?Bright red blood or blood clots in your urine. ?More blood in your urine. ?Severe pain or discomfort. ?A fever or shaking chills. ?Abdominal pain. ?Difficulty breathing. ?Swelling in your legs. This information is not intended to replace advice given to you by your health care provider. Make sure you discuss any questions you have with your health care provider. Document Revised: 08/27/2022 Document Reviewed: 12/23/2021 [employer] Patient Education 2022 [employer]. 12/23/2023 14:47:10 Laser Therapy for Kidney Stones Laser Therapy for Kidney Stones Laser therapy for kidney stones is a procedure to break up small, hard mineral deposits that form in the kidney (kidney stones). The procedure is done using a device that produces a focused beam of light (laser). The laser breaks up kidney stones into pieces that are small enough to be passed out of the body through urination or removed from the body during the procedure. You may need laser therapy if you have kidney stones that are painful or block your urinary tract. This procedure is done by inserting a tube (ureteroscope) into your kidney through the urethral opening. The urethra is the part of the body that drains urine from the bladder. In women, the urethra opens above the vaginal opening. In men, the urethra opens at the tip of the penis. The ureteroscope is inserted through the urethra, and surgical instruments are moved through the bladder and the muscular tube that connects the kidney to the bladder (ureter) until they reach the kidney. Tell a health care provider about: Any allergies you have. All medicines you are taking, including vitamins, herbs, eye drops, creams, and cdba-gzd-xbxclmy medicines. Any problems you or family members have had with anesthetic medicines. Any blood disorders you have. Any surgeries you have had. Any medical conditions you have. Whether you are or may be . What are the risks? Generally, this is a safe procedure. However, problems may occur, including: Infection. Bleeding. Allergic reactions to medicines. Damage to the urethra, bladder, or ureter. Urinary tract infection (UTI). Narrowing of the urethra (urethral stricture). Difficulty passing urine. Blockage of the kidney caused by a fragment of kidney stone. What happens before the procedure? Medicines Ask your health care provider about: ?Changing or stopping your regular medicines. This is especially important if you are taking diabetes medicines or blood thinners. ?Taking medicines such as aspirin and ibuprofen. These medicines can thin your blood. Do not take these medicines unless your health care provider tells you to take them. ?Taking wuez-wlp-zuhnkzs medicines, vitamins, herbs, and supplements. Eating and drinking Follow instructions from your health care provider about eating and drinking, which may include: 8 hours before the procedure stop eating heavy meals or foods, such as meat, fried foods, or fatty foods. 6 hours before the procedure stop eating light meals or foods, such as toast or cereal. 6 hours before the procedure stop drinking milk or drinks that contain milk. 2 hours before the procedure stop drinking clear liquids. Staying hydrated Follow instructions from your health care provider about hydration, which may include: Up to 2 hours before the procedure you may continue to drink clear liquids, such as water, clear fruit juice, black coffee, and plain tea. General instructions You may have a physical exam before the procedure. You may also have tests, such as imaging tests and blood or urine tests. If your ureter is too narrow, your health care provider may place a soft, flexible tube (stent) inside of it. The stent may be placed days or weeks before your laser therapy procedure. Plan to have someone take you home from the hospital or clinic. If you will be going home right after the procedure, plan to have someone stay with you for 24 hours. Do not use any products that contain nicotine or tobacco for at least 4 weeks before the procedure. These products include cigarettes, e-cigarettes, and chewing tobacco. If you need help quitting, ask your health care provider. Ask your health care provider: ?How your surgical site will be marked or identified. ?What steps will be taken to help prevent infection. These may include: ?Removing hair at the surgery site. ?Washing skin with a germ-killing soap. ?Taking antibiotic medicine. What happens during the procedure? An IV will be inserted into one of your veins. You will be given one or more of the following: ?A medicine to help you relax (sedative). ?A medicine to numb the area (local anesthetic). ?A medicine to make you fall asleep (general anesthetic). A ureteroscope will be inserted into your urethra. The ureteroscope will send images to a video screen in the operating room to guide your surgeon to the area of your kidney that will be treated. A small, flexible tube will be threaded through the ureteroscope and into your bladder and ureter, up to your kidney. The laser device will be inserted into your kidney through the tube. Your surgeon will pulse the laser on and off to break up kidney stones. A surgical instrument that has a tiny wire basket may be inserted through the tube into your kidney to remove the pieces of broken kidney stone. The procedure may vary among health care providers and hospitals. What happens after the procedure? Your blood pressure, heart rate, breathing rate, and blood oxygen level will be monitored until you leave the hospital or clinic. You will be given pain medicine as needed. You may continue to receive antibiotics. You may have a stent temporarily placed in your ureter. Do not drive for 24 hours if you were given a sedative during your procedure. You may be given a strainer to collect any stone fragments that you pass in your urine. Your health care provider may have these tested. This information is not intended to replace advice given to you by your health care provider. Make sure you discuss any questions you have with your health care provider. Document Revised: 08/27/2022 Document Reviewed: 12/23/2021 [employer] Patient Education 2022 [employer]. Follow Up Care 12/22/2023 08:45:54 With:VANESSA LYLES, Bryant Carlos, URL Address: [facility] [address] , [place] [address]- [phone] When: Unknown Comments:sched L URS/laser litho/possible stent plaement [facility] 08-05-2023 History of Presen t illness Narrative Subjective: Gissel Del Rosario female who is 38 y.o. female who is s/p a RXD-SJI-meihn of adhesions, endometriosis resection on 07/06/23. Pathology: [...] 07/06/2023 Performed by Luís Andres MD at [facility] LYSIS OF ADHESIONS X 60 MIN N/A 07/06/2023 Performed by Luís Andres MD at [facility] RESECTION MASS PERITONEAL/ SOFT TISSUE MASS REMOVAL POSTERIOR RECTUS SHEATH/EXCISIONAL DEBRIDMENT N/A 07/06/2023 Performed by Luis Antonio Flynn MD at [facility] OOPHORECTOMY Bilateral 07/06/2023 Performed by Luís Andres MD at [facility] ENDOMETRIAL ABLATION 2014 ESOPHAGOGASTRODUODENOSCOPY 2010 HYSTERECTOMY 04/16/2015 partial LITHOTRIPSY 2013 TONSILLECTOMY 2012 Past Medical History: Diagnosis Date Anxiety Dental disease one chipped tooth, right upper very back of mouth Depression Dizziness Endometriosis GERD (gastroesophageal reflux disease) Hypertension Kidney stones Pelvic pain PONV (postoperative nausea and vomiting) Pulmonary embolism ([facility]) 11/29/2010 during Sciatica Sinus tachycardia Visual impairment [...] endometriosis. Re-evaluate with our team or benign technical advisor in 6 months. May consider transdermal estrogen, [...] *This note was completed using a voice vehicle service attendant system. Every effort was made to ensure accuracy. However, inadvertent computerized vehicle service attendant errors may be present. .Total time spent [...] Wang 08/05/23 1126 documented in this encounter [facility] 08-03-2023 Miscellaneous Notes Spoke with patient to move up her appt on 08/05/23 to 11am, patient confirmed. documented in this encounter [facility] 08-03-2023 Telephone encounter Note Spoke with patient to move up her appt on 08/05/23 to 11am, patient confirmed. [facility] 07-30-2023 History of Presen t illness Narrative [...] questions or concerns 5) follow-up with six-month [facility] General Surgery [address] [place] [address] SEBASTIAN Romero 07/30/23 1456 documented in this encounter [facility] 07-22-2023 History of Presen t illness Narrative Subjective: Gissel Del Rosario female who is 38 y.o. female who is s/p a MVX-RVM-gjnwz of adhesions, endometriosis resection on 07/06/23. Pathology: [...] 07/06/2023 Performed by Luís Andres MD at [facility] LYSIS OF ADHESIONS X 60 MIN N/A 07/06/2023 Performed by Luís Andres MD at [facility] RESECTION MASS PERITONEAL/ SOFT TISSUE MASS REMOVAL POSTERIOR RECTUS SHEATH/EXCISIONAL DEBRIDMENT N/A 07/06/2023 Performed by Luis Antonio Flynn MD at [facility] SAL[place]O OOPHORECTOMY Bilateral 07/06/2023 Performed by Luís Andres MD at [facility] ENDOMETRIAL ABLATION 2013 ESOPHAGOGASTRODUODENOSCOPY 2010 HYSTERECTOMY 04/16/2015 partial LITHOTRIPSY 2012 TONSILLECTOMY 2012 Past Medical History: Diagnosis Date Anxiety Dental disease one chipped tooth, right upper very back of mouth Depression Dizziness Endometriosis GERD (gastroesophageal reflux disease) Hypertension Kidney stones Pelvic pain PONV (postoperative nausea and vomiting) Pulmonary embolism ([facility]) 11/29/2010 during Sciatica Sinus tachycardia Visual impairment [...] endometriosis. Re-evaluate with our team or benign technical advisor in 6 months. May consider transdermal estrogen, [...] *This note was completed using a voice vehicle service attendant system. Every effort was made to ensure accuracy. However, inadvertent computerized vehicle service attendant errors may be present. .Total time spent [...] Wang 07/22/23 0933 [facility] Miscellaneous Notes Patient called in with complaints of left hip pain and left thigh numbness. She is s/p davinci bso, endometriosis resection, lysis of adhesions, soft tissue mass. She states she first noticed this on 07/06 after she was discharged. She rates her pain 4-5 with ambulation. She is taking tylenol and sparingly using oxy. Discussed with SEBASTIAN Wang. OK to take ibuprofen with eliquis. Alternate ice and heat to hip. OK to take home med of baclofen up to TID PRN. Patient demonstrates understanding, denies further questions. Post op appt scheduled for 07/21. documented in this encounter [facility] 07-13-2023 Telephone encounter Note Patient called in with complaints of left hip pain and left thigh numbness. She is s/p davinci bso, endometriosis resection, lysis of adhesions, soft tissue mass. She states she first noticed this on 07/06 after she was discharged. She rates her pain 4-5 with ambulation. She is taking tylenol and sparingly using oxy. Discussed with SEBASTIAN Wang. OK to take ibuprofen with eliquis. Alternate ice and heat to hip. OK to take home med of baclofen up to TID PRN. Patient demonstrates understanding, denies further questions. Post op appt scheduled for 07/21. [facility] 06-29-2023 Instructions Formatting of th is note might be different from the original. Your surgery/procedure is scheduled at [facility] on 07/06/2023 at 10 am Arrival Time 8 am [facility] Address: [address] [place] [address] in [address]ing lot located on [facility]. Report to the Entrance B. Check in at the information desk the surgery. The waiting room located on the second floor. If you have any questions prior to surgery, please call Pre-Admission Clinic at [phone] between 7:30 am and 4:30 pm Thursday through Thursday. If you have questions the morning of surgery, please call the Pre-op Department at [phone]. Notify your SURGEON if you develop any [...] like to schedule therapy at a [facility] Rehab facility, please call [phone] ([phone]). Do not use lotions, creams, powders, perfume, make up, cologne or after-shaves day of surgery. Remove ALL jewelry including wedding rings, body piercings,hair extensions that contain metal, nail australian, make-up, and contact lens. You may brush [...] RIGHTS AND RESPONSIBILITIES As a patient at [facility], you have the right to: Receive medical care and be informed of who is taking care of you Be treated with dignity and respect Have a family member/sales representative public utilities of choice and your physician notified of your admission Receive information and actively participate in decisions about your care and treatment Refuse care, treatment and services Decide who may provide your support and speak for you Access bahai and spiritual services Participate in ethical issues [...] of hospital charges and payment methods Patient/patient sales representative public utilities responsibilities are to: Provide information about health status to facilitate care, treatment and services Follow the treatment, plan, keep appointments and speak up when you do not understand the plan Respect the rights of other patients and healthcare personnel Follow organizational rules and regulations that support quality care and a safe environment Fulfill financial obligations as promptly as possible [facility] 06-29-2023 Miscellaneous Notes Your surgery/procedure is scheduled at [facility] on 07/06/2023 at 10 am Arrival Time 8 am [facility] Address: [address] [place] [address] in [address]1 Parking lot located on [facility]. Report to the Entrance B. Check in at the information desk the surgery. The waiting room located on the second floor. If you have any questions prior to surgery, please call Pre-Admission Clinic at [phone] between 7:30 am and 4:30 pm Thursday through Thursday. If you have questions the morning of surgery, please call the Pre-op Department at [phone]. Notify your SURGEON if you develop any [...] like to schedule therapy at a [facility] Rehab facility, please call [phone] ([phone]). Do not use lotions, creams, powders, perfume, make up, cologne or after-shaves day of surgery. Remove ALL jewelry including wedding rings, body piercings,hair extensions that contain metal, nail australian, make-up, and contact lens. You may brush [...] RIGHTS AND RESPONSIBILITIES As a patient at [facility], you have the right to: Receive medical care and be informed of who is taking care of you Be treated with dignity and respect Have a family member/sales representative public utilities of choice and your physician notified of your admission Receive information and actively participate in decisions about your care and treatment Refuse care, treatment and services Decide who may provide your support and speak for you Access bahai and spiritual services Participate in ethical issues [...] of hospital charges and payment methods Patient/patient sales representative public utilities responsibilities are to: Provide information about health status to facilitate care, treatment and services Follow the treatment, plan, keep appointments and speak up when you do not understand the plan Respect the rights of other patients and healthcare personnel Follow organizational rules and regulations that support quality care and a safe environment Fulfill financial obligations as promptly as possible [facility] History of Presen t illness Narrative [...] personal or family history of GI or caddy packer malignancies. We reviewed her imaging as well [...] procedures Referring and communicating with other health client care coordinator (not separately reported) Documenting clinical information in the electronic or other health record Luís Andres MD [facility] History of Presen t illness Narrative Associated Problem(s): Sinus tachycardia Symptoms stable with toprol and continue. 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 Associated Problem(s): Benign essential hypertension (CMS/HCC) BP remains low and stop zestoretic. Start lisinopril daily and monitor BP. Subjective Patient ID: Gissel Del Rosario is a 37 y.o. female who presents for Follow-up (1m). Follow up HTN, tachycardia, and abdominal mass. Patient continues to have abdominal pain. Seen by caddy packer and felt mass related to endometriosis in [...] scar Continued pain and follow up with caddy packer for surgery. documented in this encounter [facility] 06-03-2023 History of Presen t [...] personal or family history of GI or caddy packer malignancies. We reviewed her imaging as well [...] procedures Referring and communicating with other health client care coordinator (not separately reported) Documenting clinical information in the electronic or other health record Luís Andres MD documented in this encounter [facility] 05-20-2023 Miscellaneous Notes Left VM to schedule STRATEGIC PLANNING ANALYST appointment with caddy packer onc. Requested US and CT images be pushed via PACS from [employer]. [facility] 05-20-2023 Telephone encounter Note Left VM to schedule STRATEGIC PLANNING ANALYST appointment with caddy packer onc. Requested US and CT images be pushed via PACS from [employer]. Health system 04-08-2023 History of Presen t illness Narrative [...] was negative but is to see a compliance administrator to further work this up as well. Jeremy Jang MD documented in this encounter [facility] Work Phone: 03-24-2023 History of Presen [...] hernia specialists. --I will discuss with her technical advisor the value of abdominal exploration for additional [...] MPH @[email or web address]@ @[email or web address]@ documented in this encounter [facility] Work Phone: 09-05-2022 Evaluation note Encounter [...] understanding and is agreeable with treatment plan. [employer] Other [id number] NotePROCEDURE: XR PELVIS W_OBL MIN 3 VIEWS COMPARISON: HISTORY: Disorder of sacrum FINDINGS: BONES:No fracture, acute abnormality, or significant arthropathy. SOFT TISSUES:Negative. No visible soft tissue swelling. EFFUSION:None visible. OTHER: Negative. IMPRESSION: No acute abnormality Electronically authenticated by: ASHLEY CARRANZA Date: 2021-09-28 07:58[facility]05-28[facility] NotePROCEDURE: XR TIB_FIB LT 2V COMPARISON: 07/17/2020 HISTORY: Pain in left leg FINDINGS: BONES:No acute fracture or dislocation. Stable sclerosis along the distal tibia. Enthesopathic spurring plantar calcaneus SOFT TISSUES:Negative. No visible soft tissue swelling. EFFUSION:None visible. OTHER: Negative. IMPRESSION: Stable exam, no interval change Electronically authenticated by: ASHLEY CARRANZA Date: 2021-09-28 07:56[facility] No data available for this section [facility] Evaluation note* Diagnosis Endometrioma- Primary Endometriosis, site unspecified documented in this encounter [facility] Work Phone: Evaluation note* Diagnosis Endometrioma Endometriosis, site unspecified documented in this encounter 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 Endometriosis in scar of skin documented in this encounter [facility]* Diagnosis Pelvic mass- Primary Abdominal or pelvic swelling, mass or lump, unspecified site [facility] Diagnosis Preop testing- Primary Unspecified pre-operative examination [facility]* Diagnosis Encounter for postoperative care- Primary Menopausal symptoms Symptomatic menopausal or female climacteric states Acute serous otitis media, recurrence not specified, unspecified laterality [facility]* Diagnosis Muscle spasms of both lower extremities- Primary [facility]* Diagnosis Abdominal wall mass- Primary Abdominal or pelvic swelling, mass or lump, unspecified site [facility]* Diagnosis Encounter for postoperative care- Primary Menopausal symptoms Symptomatic menopausal or female climacteric states [facility] Narrative - Reported* Type Description Date Medical History HTN (hypertension) Medical History Anxiety and depression Medical History migraine headache Medical History seasonal allergies Surgical History essure Surgical History EGD Surgical History C section Surgical History hysterectomy 2015 Hospitalization History PE Hospitalization History child x3 Hospitalization History demise x1 [employer] Other InstructionsNot on filedocumented in this encounter [...] on filedocumented in this encounter [facility] No data available for this section [facility] Reason for referral (narrative)* Consultation (Routine) - Pending Review Specialty Diagnoses / Procedures Referred By Contac t Referred To Contact General Surgery Diagnoses Pelvic mass Luís Andres MD [address] [place] [address] Luis Antonio Flynn MD [address] [facility] [place] [address] Referral ID Status Reason Start Date Expiration Date Visits Requested Visits Authorized [id number] Pending Review Specialty Services Required 06/17/2023 06/16/2024 1 1 [facility] Summary Purpose Family History No Family History Records FoundNo Family History Records FoundNo Family History Records FoundNo Family History Records FoundNo Family History Records FoundNo Family History Records FoundNo Family History Records FoundNo Family History Records FoundNo Family History Records Found No data available for this section Advance Directives Latest Code Status on File Code Status Date Activated Date Inactivated Comments Full Code 07/06/2023 3:39 PM 07/07/2023 1:17 PM Reason for Referral Specialty Diagnoses / Procedures Referred By Contac t Referred To Contact Radiology Diagnoses Pelvic mass Endometriosis Procedures MR pelvis without contrast Luís Andres MD [facility] [place] [address] Referral ID Status Reason Start Date Expiration Date V isits Requested Visits Authorized [id number] Pending Review 06/03/2023 06/02/2024 1 1 Additional Source Comments INFORMATION SOURCE (unrecogn ized section and content) DATE CREATED AUTHOR 05/01/2022 [facility] DATE CREATED AUTHOR AUTHOR'S ORGANIZ ATION 08/10/2022 [facility] DATE CREATED AUTHOR AUTHOR'S ORGANIZ ATION 03/26/2023 [facility] DATE CREATED AUTHOR AUTHOR'S ORGANIZ ATION 05/24/2023 [facility] DATE CREATED AUTHOR AUTHOR'S ORGANIZ ATION 06/13/2023 [facility] EPIC DATE CREATED AUTHOR AUTHOR'S ORGANIZ ATION 06/18/2023 [facility] DATE CREATED AUTHOR AUTHOR'S ORGANIZ ATION 07/11/2023 [facility] DATE CREATED AUTHOR AUTHOR'S ORGANIZ ATION 09/27/2023 [facility] DATE CREATED AUTHOR AUTHOR'S ORGANIZ ATION 12/23/2023 [facility] REASON FOR VISIT (unrecogniz ed section and content) Reason Comments New Patient Visit Reason Comments Endometriosis Specialty Diagnoses / Procedures Referred By Frankie salmon Referred To Contact General Surgery Diagnoses Endometrioma Vu Juarez MD M[facility] [address] [facility] Department of Surgery-Surgical Oncology [place] [phone] [place] [address] [facility] [address] Department of Surgery-[place] [phone] Referral ID Status Reason Start Date Expiration Date Visits Requested Visits Authorized [id number] Authorized Specialty Services Required 3 03/30/2024 1 [...] Care Teams (unrecognized sec tion and content) Chiropractic Teacher Relationship Specialty Start Date End Date Joseph Sotelo MD PCP - General Family Medicine 03/18/23 Chiropractic Teacher Relationship Specialty Start Date End Date Joseph Sotelo MD [address] [place] [address] PCP - General Family Medicine 04/02/23 Chiropractic Teacher Relationship Specialty Start Date End Date Joseph Sotelo MD [address] [place] [address] PCP - General 01/29/17 Chiropractic Teacher Relationship Specialty Start Date End Date Joseph Sotelo MD [address] [place] [address] PCP - General 01/29/17 Chiropractic Teacher Relationship Specialty Start Date End Date Joseph Sotelo MD PCP - General Cardiology 10/15/22 Chiropractic Teacher Relationship Specialty Start Date End Date Joseph Sotelo MD PCP - General Cardiology 10/15/22 Chiropractic Teacher Relationship Specialty Start Date End Date Joseph Sotelo MD [address] [place] [address] PCP - General 01/29/17 Chiropractic Teacher Relationship Specialty Start Date End Date Joseph Sotelo MD [address] [place] [address] PCP - General 01/29/17 Chiropractic Teacher Relationship Specialty Start Date End Date Joseph Sotelo MD [address] [place] [address] PCP - General 01/29/17 Chiropractic Teacher Relationship Specialty Start Date End Date Joseph Sotelo MD [address] [place] [address] PCP - General 01/29/17 Chiropractic Teacher Relationship Specialty Start Date End Date Joseph Sotelo MD [address] [place] [address] PCP - General 01/29/17 Chiropractic Teacher Relationship Specialty Start Date End Date Joseph Sotelo MD [address] [place] [address] PCP - General 01/29/17 Chiropractic Teacher Relationship Specialty Start Date End Date Joseph Sotelo MD [address] [place] [address] PCP General 01/29/17 Chiropractic Teacher Relationship Specialty Start Date End Date Joseph Sotelo MD [address] [place] [address] [facility] 01/29/17 Chiropractic Teacher Relationship Specialty Start Date End Date Joseph Sotelo MD [address] [place] [address] [facility] 01/29/17 FOR RECORDS PERTAINING TO PATIENTS [...] BE BASED ON THE PRIMARY CLINICAL RECORDS. [facility] [employer] [facility]. provides no warranty or guarantee of the accuracy or completeness of information in this document.
[2023-12-24 07:29] LABS: INR 0.99; Partial Thromboplastin Time 31.6 sec (22.3-36.2); Prothrombin Time 10.5 sec (9.0-11.6)
[2023-12-24] MEDS: LACTATED RINGER'S SOLUTION 1,000 ML 50 ML IV ×2 (07:37→09:27)
[2023-12-24] MEDS: SCOPOLAMINE 1 MG/3 DAYS TRANSDERM PATCH 1 PATCH TD (08:09)
[2023-12-24] MEDS: FAMOTIDINE/PF 20 MG/2 ML VIAL IV (08:09)
[2023-12-24] MEDS: CEFAZOLIN SODIUM 2 GM/50 ML D5W PREMIX IV (08:35)
--- NOTE | 2023-12-24 09:54 | PM.URSON ---
Urology Surgery Operative Note Operative Note Procedure Date: 12/24/23 Time Out Performed: yes Pre-op Diagnosis: Left ureteral calculus and left renal calculi Post-op Diagnosis: same as pre-op Procedures performed: 1. Cystoscopy. 2. Left ureteroscopy. 3. Thulium laser lithotripsy of obstructing left ureteral calculus. 4. Stone fragment basket extraction of left ureteral calculus. 5. Left pyeloscopy. 6. Thulium laser lithotripsy of left renal calculus. 7. Placement of 6 [place] variable length left ureteral stent Anesthesia: General-LMA Primary Surgeon: Bryant Iglesias Complications: None Estimated blood loss (mL): 10 Findings: 1. Left mid ureteral stricture. 2. Obstructing left mid ureteral calculus. 3. Left renal calculi; the 2 smaller ones were attached and the larger one was free-floating Specimens: Left ureteral calculus fragments Drains: 6 [place] variable length left ureteral stent Indications for Procedures: This lady has a mid left ureteral calculus about 6 mm in size. It is possible that she has had this for several months. She also has left renal calculi. She now presents for cystoscopy left ureteroscopy laser lithotripsy and left pyeloscopy along with probable left stent placement. She has signed an informed consent after risks were explained. Detailed description of Procedure: The patient was brought to the operating room and placed on the operating room table in the supine position. SCDs were placed on the lower extremities and turned on and functioning during the entire case. Timeout was done by all parties in the room. We all agreed upon the patient's identification and the planned procedures for this patient. Genn. anesthesia was then administered. The patient was then repositioned into the modified dorsal lithotomy position. All pressure points were satisfactorily padded. Genitalia were sterilely prepped and draped in usual fashion. I started by passing a 22 [place] Olympus cystoscope per urethra and into the bladder. Careful panendoscopy in the bladder revealed no evidence of any tumors stones or lesions. While using fluoroscopy I thought I could see a stone along the ureter course over the S1 region. I then passed a Glidewire through the scope and up the left ureter and was able to get it beyond the stone and into the kidney. I then remove the scope and then passed a 10/12 ureteral access sheath over the wire up to the area of the stone. The wire and stylette were removed. I then passed a flexible ureteroscope through the sheath and into the ureter and was able to get right up to the stone. A 270 ? laser fiber was passed and I fragmented the stone at 6 W continuously. The ureter did have a mild stricture associated with it and the stone was impacted into the ureteral wall. I was able to get 100% of the stone freed up and removed. I then removed the sheath and scope and then passed a semirigid ureteroscope up the left ureter to this area and then used a basket to extract pieces. These were dumped in the base of the bladder. I went up and down the ureter numerous times extracting pieces until it was free of stone. Upon closer inspection of this area, the year. Does have a stricture associated with the stone and the ureteral clemons are severely traumatized from the impaction of the stone. The scope was then removed. I then repassed the access sheath up the ureter and then the flexible scope through the sheath and up the ureter and into the kidney. I scoped into the upper mid and lower pole calyces. I found 2 smaller stones which were still attached to the kidney significantly and therefore did not warrant laser lithotripsy. In the mid pole I found the largest stone and this was free-floating. I then passed the laser fiber and then began doing lithotripsy with the thulium laser at 7-1/2 W on the dusting mode. I was able to dust the stone entirely. Upon completion we were unable to see any other stones fluoroscopically (I did see this larger stone fluoroscopically previously). The ureteroscope was then removed. A wire was passed back up the sheath into the kidney and the sheath was removed. I then backloaded the cystoscope over the wire and passed it into the bladder and then slid a 6 [place] variable length stent over the wire up into the kidney. The wire was removed and there were good curls in the kidney and in the bladder. The Ilich evacuator was then used to get the stone pieces out from the base of the bladder. These were sent for stone analysis. The bladder was drained of its contents and the scope was then removed. He was then transferred to a [facility] heart bed and wheeled to PACU in stable condition.
[2023-12-24] MEDS: SOLIFENACIN SUCCINATE 10 MG TABLET PO (10:11)
[2023-12-24] MEDS: HYDROMORPHONE HCL 0.5 MG/0.5 ML SYRINGE IV (10:15)
--- NOTE | 2023-12-24 10:27 | PC.NURSE ---
Medicated for pain as ordered for stent pain
--- NOTE | 2023-12-24 10:31 | PC.NURSE ---
c/o nausea; no emesis; alcohol wipe to nostrils
--- NOTE | 2023-12-24 10:40 | PC.NURSE ---
No further c/o nausea
--- NOTE | 2023-12-24 10:58 | PC.NURSE ---
Up to bathroom and voids clear red tinged urine without clots.
[2024-01-05 13:08] LABS: Calcium Oxalate Dihydrate 50 % (.); Calcium Oxalate Monohydrate 10 % (.); Calcium phosphate (hydroxyl) 40 % (.); Size 2x1 mm (.)
== END 2023-12-24 11:25 | disposition home or self-care (01) ==
PROVIDERS: PCP Family Medicine; Visit Provider Urology
PROC: (CPT 918; principal; 2023-12-24 08:30)
DX: N20.2 Calculus of kidney with calculus of ureter (principal); R33.9 Retention of urine, unspecified; R35.1 Nocturia; R10.9 Unspecified abdominal pain; Z90.710 Acquired absence of both cervix and uterus; Z86.711 Personal history of pulmonary embolism; I10 Essential (primary) hypertension; K21.9 Gastro-esophageal reflux disease without esophagitis
CPT/HCPCS: 52356; 36415; 76000; 82365; 85610; 85730; 93005; 99999; J0690; J1100; J1170; J1885; J2250; J2405; J2704; J3010

== ENCOUNTER 2024-01-07 10:44 | Day surgery (SDC) | payer BC, SELFPAY ==
--- OUTSIDE RECORDS SUMMARY | 2024-01-07 11:00 | XMS_ITS | CCD ---
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 Name Role Phone JOSEPH SOTELO Primary Care [...] Provider Joseph Sotelo MD Primary Care Provider NADERER, JOSEPH Referring Unavailable NADERER, JOSEPH Primary Care Unavailable NADERER, JOSEPH Referring Unavailable NADERER, JOSEPH Primary Care Unavailable NADERER, JOSEPH Attending Unavailable COMPA VALENZUELA Attending Unavailable NADERER, JOSEPH Attending Unavailable NADERER, JOSEPH Attending Unavailable Naderer Joseph LYLES Primary Care Provider [phone] LUÍS ANDRES Attending Unavailable NADERER, JOSEPH Referring [...] Primary Care Unavailable DAYANARA CARROLL Attending Unavailable NONE, XXXX Primary Care Physician Unavailab Bryant Penny Attending Unavailable Bryant IGLESIAS Attending Unavailable Bryant IGLESIAS Attending Unavailable Medications Current Medications Medication Drug [...] tablet by mouth every six hours HYDROcodone-acetaminophen ([place]) 5-325 MG tablet Take 1 tablet by [...] Active docusate sodium 50 mg / sennosides, intermediate 8.6 mg oral tablet (6 sources) Start: [...] 01/28/2021 Active take 1 capsule by mo [facility] in the morning DULoxetine (Cymbalta) 60 [...] mg/3 mL) pen injector polyethylene glycol 3350 [id number] mg powder for oral solution (15 sources) Osmotic Laxative polyethylene gl ycol (GLYCOLAX) 17 gram/dose powder Indications: constipation Take 17 g by mouth in the morning. Indications: constipation. 0 Active promethazine hydrochloride 50 mg oral tablet (17 sources) Phenothiazine Start: End: 4 take 0.5 tablet by mouth every four hours as needed for nausea promethazine (PHENERGAN) 50 mg tablet Take 0.5 tablets (25 mg total) by mouth every 4 (four) hours as needed for nausea or vomiting. 0 05/25/2023 08/23/2023 Active Start: 04-16-2023 take 1 tablet by rosa every six hours for nausea promethazine (Phenergan) [...] Name Value Interpretation Reference Range Facil ity Ambulatory Visit Summaryon 0 12-23-2023 Ambulatory Visit Summary Ambulatory Visit Summary GISSEL DEL ROSARIO :1985 Visit Date:12/23/2023 Ambulatory Visit Instructions Your Diagnosis Kidney stones Left ureteral stone Flank pain Your Care Team Attending Physician - VANESSA LYLES, Bryant Carlos Primary Care Physician - NONE, XXXX This Is Your Medications List Contact prescribing physician if questions or concerns APAP/butalbital/caffe ine (Fioricet 325 mg-50 mg-40 mg Tab) amoxicillin (amoxicillin 875 mg Tab) baclofen cefdinir duloxetine (duloxetine 60 mg oral delayed release capsule) lansoprazole (lansoprazole 15 mg Cap-EC) lisinopril (lisinopril 20 mg Tab) metoprolol (metoprolol succinate 25 mg ER Tab) omeprazole (omeprazole 40 mg Cap-DR) ondansetron (Zofran 4 mg Tab) oxcarbazepine (oxcarbazepine 300 mg Tab) promethazine (promethazine 25 mg Tab) topiramate (topiramate 50 mg Tab) Procedures Performed tonsillectomy (07/13/2014), Colonoscopy, Endometrial ablation, Esophagogastroduodeno scopy, Hysterectomy, Tubal ligation. Discharge Vitals Heart Rate (Peripheral) 84 Respiratory Rate 16 Blood Pressure 144/104 Height 153 cm Height 60 in Weight 70.0 kg Weight 154 lb BMI 29.9 What to do next You Need to Schedule the Following Appointments Follow Up with VANESSA LYLES, FRANK Salazar When: Comments: sched L URS/laser litho/possible stent plaement Where: [facility] [address] , [place] [address] [phone] Medications What How Much When Instructions Unchanged amoxicillin (amoxicillin 875 mg Tab) 1 Tablets By Mouth 2 times a day Contact prescribing physician if questions or concerns Unchanged APAP/ butalbital/ caffeine (Fioricet 325 mg-50 mg-40 mg Tab) 1 Tablets By Mouth As needed for as needed for pain Contact prescribing physician if questions or concerns Unchanged baclofen By Mouth 3 times a day Contact prescribing physician if questions or concerns Unchanged cefdinir By Mouth Contact prescribing physician if questions or concerns Unchanged duloxetine (duloxetine 60 mg oral delayed release capsule) 1 Capsules By Mouth Every day Contact prescribing physician if questions or concerns Unchanged lansoprazole (lansoprazole 15 mg Cap-EC) 1 Capsules By Mouth Every day Contact prescribing physician if questions or concerns Unchanged lisinopril (lisinopril 20 mg Tab) 1 Tablets By Mouth Every day Contact prescribing physician if questions or concerns Unchanged metoprolol (metoprolol succinate 25 mg ER Tab) 1 Tablets By Mouth Every day Contact prescribing physician if questions or concerns Unchanged omeprazole (omeprazole 40 mg Cap-DR) 1 Capsules By Mouth Every day Contact prescribing physician if questions or concerns Unchanged ondansetron (Zofran 4 mg Tab) By Mouth Every 8 hours Contact prescribing physician if questions or concerns Unchanged oxcarbazepine (oxcarbazepine 300 mg Tab) 1 Tablets By Mouth 2 times a day Contact prescribing physician if questions or concerns Unchanged promethazine (promethazine 25 mg Tab) 1 Tablets By Mouth As needed for as needed for nausea/vomiting Contact prescribing physician if questions or concerns Unchanged topiramate (topiramate 50 mg Tab) 1 Tablets By Mouth 2 times a day Contact prescribing physician if questions or concerns Allergies No Known Allergies Problems Ongoing - Any problem that you are currently receiving treatment for. Acid reflux -JUN-2014 16:59:21<$> ADHD Arthritis Chronic tonsillitis Depression Extreme obesity Flank pain HTN - Hypertension Kidney stones Left ureteral stone Historical - Any problem that you are no longer receiving treatment for. PE - Pulmonary embolism Patient Survey You may receive a survey via text or e-mail asking about your office visit. Please share your experience with us by completing your survey. We appreciate your feedback and thank you for choosing us for your care. Education Materials Laser Therapy for Kidney Stones, Care After This sheet gives you information about how to care for yourself after your procedure. Your health care provider may also give you more specific instructions. If you have problems or questions, contact your health care provider. What can I expect after the procedure? After the procedure, it is common to have: ? Pain. ? A burning sensation while urinating. ? Small amounts of blood in your urine. ? A need to urinate frequently. ? Pieces of kidney stone in your urine. ? Mild discomfort when urinating that may be felt in the back. You may experience this if you have a flexible tube (stent) in your ureter. Follow these instructions at home: Medicines ? Take jvsh-bhn-nrhzhmq and prescription medicines only as told by your health care provider. ? If you were prescribed an antibiotic medicine, take it as told by your health care provider. Do not stop taking the antibiotic even if you start to feel better. ? As (more content not included)... Normal [facility] Office/Clinic Noteon 12-23-2023 Urology Office/Clinic Note Urology Office/Clinic Note Chief Complaint NEW PT. hospital follow up HPI Staff New Pt. Pt was seen at [facility] due to abdominal pain. KUB 12/21/23, CT SCAN 12/21/23 Dysuria: denies burning, but yes has some pain Incomplete bladder emptying: yes Hematuria: denies visible blood Frequency: has increased Urgency: denies Nocturia: 2-3x a night Stream: mild stream Leaking: yes Post void dripping: denies Wearing pads/ Depends: yes started wearing a pad Urge incontinence: _ Stress incontinence: _ Incontinence without Sensory Awareness: _ Abdominal pain: yes severe pain on left side, but has pain on right side Flank pain: yes bilateral pain Sexual complaints: _ History of Present Illness Tests reviewed: reviewed UA, ER notes and labs, CT scans, KUB I have reviewed the previous health record information and history for this patient from external providers. I have reviewed and verified the staff HPI to be accurate for this encounter. Review of Systems PHQ Score Initial Depression Screen Score: 0 SCORE ROS - Provider Constitutional: denies weight loss, denies hot flashes. Eyes: denies eye problems. Gastrointestinal: denies nausea, denies vomiting. Cardiovascular: denies chest pain or angina. Integumentary: no dryness Musculoskeletal: denies musculoskeletal symptoms. ENMT: denies otolaryngeal symptoms. Respiratory: no shortness of breath. Heme/Lymph: denies easy bleeding tendency, denies easy bruising tendency. Psychiatric: no confusion, no anxiety. Genitourinary: See HPI. Physical Exam Vitals & Measurements HR: 84(Peripheral) RR: 16 BP: 144/104 HT: 60 in HT: 153 cm WT: 70.0 kg WT: 154 lb BMI: 29.9 General Appearance: alert , no acute distress, well nourished, well developed female. Genitourinary: bladder nonpalpable, severe flank pain. Assessment/Plan Gissel is a 38 yo female new pt here for f/u to H ER visit due to kidney stones.. 1. Kidney stones (N20.0: Calculus of kidney) Hx of kidney stones, never required intervention. Saw Dr. Briones, urologist in [place], in the past. CT AP wo con 02/24/23 [facility] - 5 mm nonobstructing stone in mid L ureter. Additional nonobstructing stone in both kidneys. KUB 12/21/23 [facility] - Calcifications overlying L renal shadow measuring up to 0.[address] AP wo con 12/21/23 [facility] - Mild/moderate L hydro with perinephric edema. Multiple nonobstructing stones in L kidney. Dilated proximal and mid ureter with a chronic 6mm stone in mid ureter. Unremarkable R kidney and ureter. KUB 12/22/23 [facility] - Multiple stones projecting over L kidney. No visible stones on R. Upon personal review of images, appears to have three stones in L kidney and one in the L ureter. States she has passed three stones in the past 2 months. Started having pain ~5 days ago but had most severe pain 2 days ago. UA today shows trace-intact blood and trace leuks. Discussed need for operative intervention. Educated pt on possible risk of impaction. -Will schedule a Cystoscopy with Left Retrogrades, Left Ureteroscopy, Left Laser Litho, Left Stone Basket, Left possible stent placement for ureteral and renal stones. The procedure risks, benefits, alternatives and complications have been discussed with the patient. These include but are not limited to bleeding, pain, infection, ureteral perforation, extravasation, stricture formation, sepsis, obstruction, inability to reach the stone, inability to fragment the stone, and inability to retrieve all stone fragments. The need for ancillary procedures such as stent placement and removal, retrograde urography, and percutaneous nephrostomy were also discussed. The patient also understood that a ureteral stent may be placed and removal of the stent is critical. Failure to follow up for stent removal can result in recurrent UTIs, encrustation of the stent, loss of kidney function and need for nephrectomy. All of their questions and concerns have been addressed. Full informed consent has been obtained. Will order General anesthesia. 2. Left ureteral stone (N20.1: Calculus of ureter) See #1. 3. Flank pain (R10.9: Unspecified abdominal pain) See #1. Follow-up With When Contact Information Bryant IGLESIAS MD, URL [facility] [address], [place] [phone] Additional Instructions: sched L URS/laser litho/possible stent plaement Patient Education Laser Therapy for Kidney Stones, Care After Laser Therapy for Kidney Stones I, Tia Quezada, personally scribed for Dr. Iglesias on 12/23/2023 14:51:27. . Documentation recorded by the scribeTia, accurately reflects the services(s) I performed and decisions made by me. Authenticated by Dr. Iglesias on 12/23/2023 14:57:37. Problem List/Past Medical History Ongoing Acid reflux -JUN-2014 16:59:21<$> ADHD Arthritis Chronic tonsillitis Depression Extreme obesity Flank pain HTN - Hypertension Kidney stones Left ureteral (more content not included)... Normal [facility] Comment on above: Result Comment: Elec tronically Signed By: Bryant IGLESIAS MD\.br\Date and Time Signed: 12/23/23 14:57 EDT\.br\Electronically Co-Signed By: Tia Quezada\.br\Date and Time Co-Signed: 12/23/23 14:52 EDT XR FEMUR LT 2+ VIEWSon 09-25 XR [...] Roberson MD on 09/26/2023 9:30 AM Normal [facility] XR HIP LT 2-3 VIEWS W OR [...] Menchaca MD on 09/26/2023 6:59 PM Normal [facility] BASIC METABOLIC PANLon 07-05 Anion gap [Moles/Vol] 7 mmol/L Normal 5-15 [facility] Comment on above: Performed By: #### C BCA, BMP #### [facility] ([id number]) [address], [address] [place] [address] Calcium [Mass/Vol] 7.8 mg/dL Low 8.5-10.5 [facility] Comment on above: Performed By: #### C BCA, BMP #### [facility] ([id number]) [address], [address] [place] [address] Chloride [Moles/Vol] 111 mmol/L High 98-109 [facility] Comment on above: Performed By: #### C BCA, BMP #### [facility] ([id number]) [address], [address] [place] [address] CO2 [Moles/Vol] 22 mmol/L Normal 22-32 [facility] Comment on above: Performed By: #### C BCA, BMP #### [facility] ([id number]) [address], [address] [place] [address] Creatinine [Mass/Vol] 0.62 mg/dL Normal 0.40-1.00 [facility] Comment on above: Result Comment: METH OD TRACEABLE TO IDMS STANDARD Performed By: #### C BCA, BMP #### [facility] ([id number]) [address] [address] [place] [address] eGFR (CKD-EPI) NON-RACE DEPENDENT >90 Normal >59 [facility] Comment on above: Result Comment: Reported eGFR is based on the CKD-EPI 2020 equation that does not use a race coefficient. Performed By: #### C BCA, BMP #### [facility] ([id number]) [address] [address] Glucose [Mass/Vol] 118 mg/dL High 65-99 [facility] Comment on above: Performed By: #### C BCA, BMP #### [facility] ([id number]) [address] [address] Potassium [Moles/Vol] 3.6 mmol/L Normal 3.5-5.0 [facility] Comment on above: Performed By: #### C BCA, BMP #### [facility] ([id number]) [address] [address] Sodium [Moles/Vol] 140 mmol/L Normal 134-146 [facility] Comment on above: Performed By: #### C BCA, BMP #### [facility] ([id number]) [address] [address] Urea nitrogen [Mass/Vol] 10 mg/dL Normal 5-23 [facility] Comment on above: Performed By: #### C BCA, BMP #### [facility] ([id number]) [address] [address] CBC AND AUTO DIFFon 03 24 ABSOLUTE BASOPHIL 0.0 X10E9/L Normal 0.0-0.2 [facility] Comment on above: Performed By: #### C BCA, BMP #### [facility] ([id number]) [address] [address] ABSOLUTE NEUTROPHIL 12.5 X10E9/L High 1.5-6.6 [facility] Comment on above: Performed By: #### C BCA, BMP #### [facility] ([id number]) [address], [address] [place] [address] Basophils/100 WBC (Bld) 0.1 % Normal [facility] Comment on above: Performed By: #### C BCA, BMP #### [facility] ([id number]) [address], [address] [place] [address] Eosinophils (Bld) [#/Vol] 0.0 10*3/uL Normal 0.0-0.4 [facility] Comment on above: Performed By: #### C BETTY, BMP #### [facility] ([id number]) [address], [address] [place] [address] Eosinophils/100 WBC (Bld) 0.0 % Normal [facility] Comment on above: Performed By: #### C BCA, BMP #### [facility] ([id number]) [address], [address] [place] [address] Erythrocyte distribution width (RBC) [Ratio] 14.1 % Normal 11.5-15.0 [facility] Comment on above: Performed By: #### C BCA, BMP #### [facility] ([id number]) [address], [address] [place] [address] Hematocrit (Bld) [Volume fraction] 38.7 % Normal 35-47 [facility] Comment on above: Performed By: #### C BCA, BMP #### [facility] ([id number]) [address], [address] [place] [address] Hemoglobin (Bld) [Mass/Vol] 13.0 g/dL Normal 11.7-15.5 [facility] Comment on above: Performed By: #### C BCA, BMP #### [facility] ([id number]) [address], [address] [place] [address] Lymphocytes (Bld) [#/Vol] 0.8 10*3/uL Low 1.0-3.5 [facility] Comment on above: Performed By: #### C BETTY, BMP #### [facility] ([id number]) [address], [address] [place] [address] Lymphocytes/100 WBC (Bld) 5.9 % Normal [facility] Comment on above: Performed By: #### C BETTY, BMP #### [facility] ([id number]) [address], [address] [place] [address] MCH (RBC) [Entitic mass] 29.7 pg Normal 27-34 [facility] Comment on above: Performed By: #### C BETTY, BMP #### [facility] ([id number]) [address], [address] [place] [address] MCHC (RBC) [Mass/Vol] 33.6 g/dL Normal 32-36 [facility] Comment on above: Performed By: #### C BETTY, BMP #### [facility] ([id number]) [address], [address] [place] [address] MCV (RBC) [Entitic vol] 88 fL Normal 80-100 [facility] Comment on above: Performed By: #### C BETTY, BMP #### [facility] ([id number]) [address], [address] [place] [address] Monocytes (Bld) [#/Vol] 0.4 10*3/uL Normal 0-0.9 [facility] Comment on above: Performed By: #### C BETTY, BMP #### [facility] ([id number]) [address], [address] [place] [address] Monocytes/100 WBC (Bld) 3.3 % Normal [facility] Comment on above: Performed By: #### C BETTY, BMP #### [facility] ([id number]) [address], [address] [place] [address] Neutrophils/100 WBC (Bld) 90.7 % Normal [facility] Comment on above: Performed By: #### C BETTY, BMP #### [facility] ([id number]) [address], [address] [place] [address] Platelet mean volume (Bld) [Entitic vol] 6.4 fL Low 7-12 [facility] Comment on above: Performed By: #### C BETTY, BMP #### [facility] ([id number]) [address], [address] [place] [address] Platelets (Bld) [#/Vol] 349 10*3/uL Normal 150-450 [facility] Comment on above: Performed By: #### C BETTY, BMP #### [facility] ([id number]) [address], [address] [place] [address] RBC COUNT 4.37 X10E12/L Normal 3.80-5.20 [facility] Comment on above: Performed By: #### C BETTY, BMP #### [facility] ([id number]) [address], [address] [place] [address] WBC (Bld) [#/Vol] 13.8 10*3/uL High 4.0-11.0 [facility] Comment on above: Performed By: #### C BETTY, BMP #### [facility] ([id number]) [address], [address] [place] [address] HCG ( test) Ql (U)o n 07-06-2023 Beta HCG ( test) Ql (U) Negative Normal NEG [facility] Comment on above: Performed By: #### 2 106-3 #### [facility] ([id number]) [address] [place] [address] Surgical Pathologyon 024 Surgical Pathology Normal [facility] Comment on above: Result Comment: [facility] [address] [place] [address] Surgical Pathology Consultation Patient Name:GISSEL DEL ROSARIO:1985 (Age: 38)Gender:FTaken:4Reported:07/10/2023hysician(s):Luís Andres M.D. ([phone])Copy To: Rec. #:[id number]: #[id number] Final Pathologic Diagnosis Bilateral fallopian tubes and [...] Out gp/07/10/2023Wagner Duncan MD Interpretation performed at [facility], [address] [place] [address], License number: [id number]. Clinical History Pelvic pain. Gross Description Received [...] each K 1 lymph node, serially sectioned (11,ss,G38-6486, m2) /07/07/2023O Microscopic Findings Microscopic examination performed. Specimen(s) Received Bilateral tubes and ovaries and abdominal wall mass Fee Codes(s): 1; 05035 CBC AND AUTO DIFFon 06-26-19 ABSOLUTE BASOPHIL 0.1 X10E9/L Normal 0.0-0.2 [facility] Comment on above: Performed By: #### C BCA #### [facility] ([id number]) [address], [address] [place] [address] ABSOLUTE NEUTROPHIL 6.4 X10E9/L Normal 1.5-6.6 [facility] Comment on above: Performed By: #### C BCA #### [facility] ([id number]) [address], [address] [place] [address] Basophils/100 WBC (Bld) 0.6 % Normal [facility] Comment on above: Performed By: #### C BCA #### [facility] ([id number]) [address], [address] [place] [address] Eosinophils (Bld) [#/Vol] 0.1 10*3/uL Normal 0.0-0.4 [facility] Comment on above: Performed By: #### C BCA #### [facility] ([id number]) [address], [address] [place] [address] Eosinophils/100 WBC (Bld) 0.7 % Normal [facility] Comment on above: Performed By: #### C BCA #### [facility] ([id number]) [address], [address] [place] [address] Erythrocyte distribution width (RBC) [Ratio] 14.6 % Normal 11.5-15.0 [facility] Comment on above: Performed By: #### C BCA #### [facility] ([id number]) [address], [address] [place] [address] Hematocrit (Bld) [Volume fraction] 42.5 % Normal 35-47 [facility] Comment on above: Performed By: #### C BCA #### [facility] ([id number]) [address], [address] [place] [address] Hemoglobin (Bld) [Mass/Vol] 14.2 g/dL Normal 11.7-15.5 [facility] Comment on above: Performed By: #### C BCA #### [facility] ([id number]) [address] [place] [address] Lymphocytes (Bld) [#/Vol] 3.7 10*3/uL High 1.0-3.5 [facility] Comment on above: Performed By: #### C BCA #### [facility] ([id number]) [address], [address] [place] [address] Lymphocytes/100 WBC (Bld) 33.4 % Normal [facility] Comment on above: Performed By: #### C BCA #### [facility] ([id number]) [address], [address] [place] [address] MCH (RBC) [Entitic mass] 29.3 pg Normal 27-34 [facility] Comment on above: Performed By: #### C BCA #### [facility] ([id number]) [address], [address] [place] [address] MCHC (RBC) [Mass/Vol] 33.4 g/dL Normal 32-36 [facility] Comment on above: Performed By: #### C BCA #### [facility] ([id number]) [address], [address] [place] [address] MCV (RBC) [Entitic vol] 88 fL Normal 80-100 [facility] Comment on above: Performed By: #### C BCA #### [facility] ([id number]) [address], [address] [place] [address] Monocytes (Bld) [#/Vol] 0.7 10*3/uL Normal 0-0.9 [facility] Comment on above: Performed By: #### C BCA #### [facility] ([id number]) [address], [address] [place] [address] Monocytes/100 WBC (Bld) 6.5 % Normal [facility] Comment on above: Performed By: #### C BCA #### [facility] ([id number]) [address], [address] [place] [address] Neutrophils/100 WBC (Bld) 58.8 % Normal [facility] Comment on above: Performed By: #### C BCA #### [facility] ([id number]) [address], [address] [place] [address] Platelet mean volume (Bld) [Entitic vol] 6.6 fL Low 7-12 [facility] Comment on above: Performed By: #### C BCA #### [facility] ([id number]) [address], [address] [place] [address] Platelets (Bld) [#/Vol] 367 10*3/uL Normal 150-450 [facility] Comment on above: Performed By: #### C BCA #### [facility] ([id number]) [address] [place] [address] RBC COUNT 4.84 X10E12/L Normal 3.80-5.20 [facility] Comment on above: Performed By: #### C BCA #### [facility] ([id number]) [address] [place] [address] WBC (Bld) [#/Vol] 11.0 10*3/uL Normal 4.0-11.0 [facility] Comment on above: Performed By: #### C BCA #### [facility] ([id number]) [address], [address] [place] [address] MR PELVIS WO CONTon 06-16-19 MR PELVIS [...] Rodrigez MD on 06/16/2023 11:29 AM Normal [facility] CT ABD/PELVIS WO CONon 08-05 CT ABD/PELVIS [...] JAYDEN MORGAN Date: 2022-08-05 16:55 Normal [facility] QUANTIFERON TB GOLD PLUSon 0 06-18-2022 QuantiFERON Criteria Comment Normal [facility] Comment on above: Result Comment: Gagandeep tiFERON-TB [...] test. Performed By: #### Q NTTB #### [facility] [address] [place] [address] Dr. Yovanny Alcantara QuantiFERON Incubation Incubation performed. Normal [facility] Comment on above: Performed By: #### Q NTTB #### [facility] [address] [place] [address] Dr. Yovanny Alcantara QuantiFERON Mitogen Value >10.00 Normal [facility] Comment on above: Performed By: #### Q NTTB #### [facility] [address] [place] [address] Dr. Yovanny Alcantara QuantiFERON Nil Value 0.03 IU/mL Normal [facility] Comment on above: Performed By: #### Q NTTB #### [facility] [address] [place] [address] Dr. Yovanny Alcantara QuantiFERON TB1 Ag Value 0.05 IU/mL Normal [facility] Comment on above: Performed By: #### Q NTTB #### [facility] [address] [place] [address] Dr. Yovanny Alcantara QuantiFERON TB2 Ag Value 0.06 IU/mL Normal [facility] Comment on above: Performed By: #### Q NTTB #### [facility] [address] [place] [address] Dr. Yovanny Alcantara QuantiFERON-TB Gold Plus Negative Normal Negative [facility] Comment on above: Result Comment: No r esponse to M tuberculosis antigens detected. Infection with M tuberculosis is unlikely, but high risk individuals should be considered for additional testing (ATS/IDSA/CDC Clinical Practice Guidelines, 2017). The reference range is an Antigen minus Nil result of <0.35 IU/mL. Chemiluminescence immunoassay methodology Performed By: #### Q NTTB #### [facility] [address] [place] [address] Dr. Yovanny Alcantara HEPATITIS B SURFACE ANTIBODY , QUANTon 06-17-2022 Hepatitis B Surf AB Quant 3.5 mIU/mL Critically low Immunity>9.9 [facility] Comment on above: Result Comment: Stat us of Immunity Anti-HBs Level Inconsistent with Immunity 0.0 - 9.9 Consistent with Immunity >9.9 Performed By: #### H EPBSRF ####[facility] [id number] [address]Dr. Yovanny Alcantara MMR IMMUNITYon 06-17-2022 Mumps Abs, IgG 17.4 AU/mL Normal Immune >10.9 [facility] Comment on above: Result Comment: Nega tive <9.0 Equivocal 9.0 - 10.9 Positive >10.9 A positive result generally indicates past exposure to Mumps virus or previous vaccination. Performed By: #### M MRIMMU #### [facility] [address] [place] [address] Dr. Yovanny Alcantara Rubella Antibodies, IgG 1.68 index Normal Immune >0.99 [facility] Comment on above: Result Comment: Non- immune <0.90 Equivocal 0.90 - 0.99 Immune >0.99 Performed By: #### M MRIMMU #### [facility] [address] [place] [address] Dr. Yovanny Alcantara Rubeola Ab, IgG 108.0 AU/mL Normal Immune >16.4 [facility] Comment on above: Result Comment: Nega tive <13.5 Equivocal 13.5 - 16.4 Positive >16.4 Presence of antibodies to Rubeola is presumptive evidence of immunity except when acute infection is suspected. Performed By: #### M MRIMMU #### [facility] [address] [place] [address] Dr. Yovanny Alcantara VARICELLA IGG ABon Varicella Zoster IgG 947 index Normal Immune >165 [facility] Comment on above: Result Comment: Nega tive <135 Equivocal 135 - 165 Positive >165 A positive result generally indicates exposure to the pathogen or administration of specific immunoglobulins, but it is not indication of active infection or stage of disease. Performed By: #### V ARCEL ####[facility] [address] [address]Dr. Yovanny Alcantara Consent Formson 05-01-2022 Consent Forms [id number] .00OTGTIFF Normal [facility] US CESIA DOP LEG RTon 12-31-19 [...] FRANTZ COVARRUBIAS Date: 2021-12-30 10:39 Normal [facility] CBC AUTO DIFFon 12-29-2021 BASO # 0.1 103/ul Normal 0.0-0.1 [facility] Comment on above: Performed By: #### C BC #### [facility] [address] [place] [address] Dr. Yovanny Alcantara Basophils/100 WBC (Bld) 0.7 % Normal 0.2-2.0 [facility] Comment on above: Performed By: #### C BC #### [facility] [address] [place] [address] Dr. Yovanny Alcantara EO # 0.2 103/ul Normal 0.0-0.7 [facility] Comment on above: Performed By: #### C BC #### [facility] [address] [place] [address] Dr. Yovanny Alcantara Eosinophils/100 WBC (Bld) 1.3 % Normal 0.9-7.0 [facility] Comment on above: Performed By: #### C BC #### [facility] [address] [place] [address] Dr. Yovanny Alcantara Erythrocyte distribution width (RBC) [Ratio] 13.9 % Normal 11.0-15.0 [facility] Comment on above: Performed By: #### C BC #### [facility] [address] [place] [address] Dr. Yovanny Alcantara Hematocrit (Bld) [Volume fraction] 43.7 % Normal 36.0-48.0 [facility] Comment on above: Performed By: #### C BC #### [facility] [address] [place] [address] Dr. Yovanny Alcantara Hemoglobin (Bld) [Mass/Vol] 13.8 g/dL Normal 12.0-16.0 [facility] Comment on above: Performed By: #### C BC #### [facility] [address] [place] [address] Dr. Yovanny Alcantara IG # 0.11 10e3/ul Critically high 0.00-0.03 [facility] Comment on above: Performed By: #### C BC #### [facility] [address] [place] [address] Dr. Yovanny Alcantara IG % 0.8 % Critically high 0.0-0.5 [facility] Comment on above: Performed By: #### C BC #### [facility] [address] [place] [address] Dr. Yovanny Alcantara LYMPH # 3.7 103/ul Normal 1.2-3.8 [facility] Comment on above: Performed By: #### C BC #### [facility] [address] [place] [address] Dr. Yovanny Alcantara Lymphocytes/100 WBC (Bld) 27.0 % Normal 20.5-60.0 [facility] Comment on above: Performed By: #### C BC #### [facility] [address] [place] [address] Dr. Yovanny Alcantara MANUAL DIFF REQ NO Normal [facility] Comment on above: Performed By: #### C BC #### [facility] [address] [place] [address] Dr. Yovanny Alcantara MCH (RBC) [Entitic mass] 26.7 pg Normal 26.7-34.0 [facility] Comment on above: Performed By: #### C BC #### [facility] [address] [place] [address] Dr. Yovanny Alcantara MCHC (RBC) [Mass/Vol] 31.6 g/dL Normal 29.9-35.2 [facility] Comment on above: Performed By: #### C BC #### [facility] [address] [place] [address] Dr. Yovanny Alcantara MCV (RBC) [Entitic vol] 84.5 fL Normal 81.0-99.0 [facility] Comment on above: Performed By: #### C BC #### [facility] [address] [place] [address] Dr. Yovanny Alcantara MONO # 0.9 103/ul Critically high 0.3-0.8 [facility] Comment on above: Performed By: #### C BC #### [facility] [address] [place] [address] Dr. Yovanny Alcantara Monocytes/100 WBC (Bld) 6.5 % Normal 1.7-12.0 [facility] Comment on above: Performed By: #### C BC #### [facility] [address] [place] [address] Dr. Yovanny Alcantara NEUT # 8.8 103/ul Critically high 1.4-6.5 [facility] Comment on above: Performed By: #### C BC #### [facility] [address] [place] [address] Dr. Yovanny Alcantara Neutrophils/100 WBC (Bld) 63.7 % Normal 43.0-75.0 [facility] Comment on above: Performed By: #### C BC #### [facility] [address] [place] [address] Dr. Yovanny Alcantara Platelet mean volume (Bld) [Entitic vol] 8.3 fL Critically low 9.5-13.5 [facility] Comment on above: Performed By: #### C BC #### [facility] [address] [place] [address] Dr. Yovanny Alcantara PLT 364 103/ul Normal 150-450 [facility] Comment on above: Performed By: #### C BC #### [facility] [address] [address] [address] Yovanny Alcantara RBC 5.17 106/ul Normal 4.20-5.40 [facility] Comment on above: Performed By: #### C BC #### [facility] [address] [id number] Yovanny Alcantara WBC 13.8 103/ul Critically high 4.0-11.0 [facility] Comment on above: Performed By: #### C BC #### [facility] [id number] Yovanny Alcantara CTA CHEST WO W [...] AMINA WU Date: 2021-12-29 01:20 Normal [facility] D-DIMERon 12-29-2021 D-DIMER 0.68 mg/L FEU Critically high <=0.59 [facility] Comment on above: Performed By: #### P TT, PT, DDIM ####[facility] [address] [address]Dr. Yovanny Alcantara D-DIMER COMMENTS SEE BELOW Normal [facility] Comment on above: Result Comment: Incr eases [...] Performed By: #### P TT, PT, DDIM ####[facility] [address] [address]Dr. Yovanny Alcantara ER URINE PROFILEon 2 Bilirubin Ql (U) Negative Normal NEGATIVE [facility] Comment on above: Performed By: #### E RUR #### [facility] [address] [place] [address] Dr. Yovanny Alcantara Clarity (U) CLEAR Normal CLEAR [facility] Comment on above: Performed By: #### E RUR #### [facility] [address] [place] [address] Dr. Yovanny Alcantara Color (U) YELLOW Normal YELLOW [facility] Comment on above: Performed By: #### E RUR #### [facility] [address] [place] [address] Dr. Yovanny LONG A micrscopic examination will be performed if indicated. Normal [facility] Comment on above: Performed By: #### E RUR #### [facility] [address] [place] [address] Dr. Yovanny Alcantara Glucose Ql (U) Negative Normal NEGATIVE [facility] Comment on above: Performed By: #### E RUR #### [facility] [address] [place] [address] Dr. Yovanny Alcantara Hemoglobin Ql (U) Negative Normal NEGATIVE [facility] Comment on above: Performed By: #### E RUR #### [facility] [address] [place] [address] Dr. Yovanny Alcantara Ketones Ql (U) Negative Normal NEGATIVE [facility] Comment on above: Performed By: #### E RUR #### [facility] [address] [place] [address] Dr. Yovanny Alcantara LEUKOCYTES Negative Normal NEGATIVE [facility] Comment on above: Performed By: #### E RUR #### [facility] [address] [place] [address] Dr. Yovanny Alcantara Nitrite Ql (U) Negative Normal NEGATIVE [facility] Comment on above: Performed By: #### E RUR #### [facility] [address] [place] [address] Dr. Yovanny Alcantara pH (U) 6.5 [pH] Normal 5-9 [facility] Comment on above: Performed By: #### E RUR #### [facility] [address] [place] [address] Dr. Yovanny Alcantara SPEC GRAVITY 1.020 Normal 1.005-<=1.025 [facility] Comment on above: Performed By: #### E RUR #### [facility] [address] [place] [address] Dr. Yovanny Alcantara UA PROTEIN Negative Normal NEGATIVE/ TRACE [facility] Comment on above: Performed By: #### E RUR #### [facility] [address] [place] [address] Dr. Yovanny Alcantara UR MICRO IND NOT INDICATED Normal [facility] Comment on above: Performed By: #### E RUR #### [facility] [address] [place] [address] Dr. Yovanny Alcantara Urobilinogen Qn (U) 0.2 {Eunice'U}/dL Normal 0.2 - 1.0 [facility] Comment on above: Performed By: #### E RUR #### [facility] [address] [place] [address] Dr. Yovanny Alcantara PROTIMEon 12-29-2021 INR Coag (PPP) [Relative time] 0.94 {INR} Normal [facility] Comment on above: Performed By: #### P TT, PT, DDIM ####[facility] [address] [address]Dr. Yovanny Alcantara INR GUIDELINES SEE BELOW Normal [facility] Comment on above: Result Comment: JENNIFER RED INR: 2.0 - 3.0 CONDITIONS NOT LISTED BELOW 2.5 - 3.5 FOR PROSTHETIC HEART VALVE REPLACEMENT 2.5 - 3.5 RECURRENT THROMBOSIS Performed By: #### P TT, PT, DDIM ####[facility] [address] [address]Dr. Yovanny Alcantara PT Coag (PPP) [Time] 10.2 s Normal 9.0-11.6 [facility] Comment on above: Performed By: #### P TT, PT, DDIM ####[facility] [address] [address]Dr. Yovanny Alcantara PTTon 12-29-2021 aPTT Coag (Bld) [Time] 28.2 s Normal 22.3-36.2 [facility] Comment on above: Performed By: #### P TT, PT, DDIM ####[facility] [address] [place], [place] [address]DrJessica Alcantara .QC Respiratory Panel 2.1 (B ioFire)on 11-19-2021 Internal Control-Resp Panel 2.1(BioFire) [facility] Comment on above: Order Comment: Order ed by Mirian. [[email or web address]] Performed By: #### 6 [id number] #### [facility] (DEFAULT) [address] [place] [address] Consent Formson 11-08-2021 Consent Forms [id number] .00OTGTIFF [facility] .QC Respiratory Panel 2.1 (B ioFire)on 11-02-2021 Internal Control-Resp Panel 2.1(BioFire) [facility] Comment on above: Order Comment: Order ed by Mirian. [[id number]] Performed By: #### 6 [id number] #### [facility] (DEFAULT) [address] [place] [address] XR LSPINE 2_3 VIEWSon 2021 XR LSPINE [...] by: ASHLEY CARRANZA Date: 2021-09-28 07:54 Normal [facility] US PELVIS AND TRANSVAGon US PELVIS [...] by: BRIAN SINGER Date: 2021-08-20 09:02 Normal [facility] Consent Formson 05-16-2021 Consent Forms [id number] .00OTGTIFF [facility] .QC Respiratory Panel 2.1 (B ioFire)on 05-13-2021 Internal Control-Resp Panel 2.1(BioFire) Pass Normal [facility] Comment on above: Order Comment: Order ed by [[email or web address]] Performed By: #### 6 [id number] #### [facility] (DEFAULT) [address] [place] [address] Vital Signs Date Time Vital Sign Value Performing Clinician Facility 12-23-2023 14:16-0400 Blood Pressure Location Bryant IGLESIAS [facility] 12-23-2023 14:16-0400 Diastolic blood pressure 104 mm[Hg] Bryant IGLESIAS [facility] 12-23-2023 14:16-0400 Heart rate 84 /min Bryant IGLESIAS [facility] 12-23-2023 14:16-0400 Respiratory rate 16 /min Bryant IGLESIAS [facility] 12-23-2023 14:16-0400 Systolic blood pressure 144 mm[Hg] Bryant IGLESIAS [facility] 08-05-2023 10:57-0400 Body height 157.5 cm Dayanara CORTES Work Phone: [facility] 08-05-2023 10:57-0400 Body mass index (BMI) [Ratio] 28.34 kg/m2 Dayanara CORTES Work Phone: [facility] 08-05-2023 10:57-0400 Body temperature 97.9 [degF] Dayanara CORTES [facility] 08-05-2023 10:57-0400 Body weight 70.31 kg Dayanara CORTES Work Phone: [facility] 08-05-2023 10:57-0400 Diastolic blood pressure 118 mm[Hg] Dayanara CORTES Work Phone: [employer] 08-05-2023 10:57-0400 Heart rate 115 /min Dayanara Carroll PA Work Phone: [facility] 08-05-2023 10:57-0400 Respiratory rate 18 /min Dayanara Carroll PA Work Phone: [facility] 08-05-2023 10:57-0400 SaO2% (BldA) [Mass fraction] 100 % Dayanara Carroll PA Work Phone: [facility] 08-05-2023 10:57-0400 Systolic blood pressure 149 mm[Hg] Dayanara Carroll PA Work Phone: [facility] 07-30-2023 14:43-0400 Body height 157.5 cm Basel Sharda PA Work Phone: [facility] 07-30-2023 14:43-0400 Body mass index (BMI) [Ratio] 29.26 kg/m2 Basel Sharda PA Work Phone: [facility] 07-30-2023 14:43-0400 Body weight 72.58 kg Basel Sharda PA Work Phone: [facility] 07-22-2023 08:52-0400 Body height 157.5 cm Dayanara Carroll PA Work Phone: [facility] 07-22-2023 08:52-0400 Body mass index (BMI) [Ratio] 29.26 kg/m2 Dayanara Carroll PA Work Phone: [facility] 07-22-2023 08:52-0400 Body weight 72.58 kg Dayanara Carroll PA Work Phone: [facility] 07-22-2023 08:52-0400 Diastolic blood pressure 95 mm[Hg] Dayanara Carroll PA Work Phone: [facility] 07-22-2023 08:52-0400 Heart rate 90 /min Dayanara Carroll PA Work Phone: [facility] 07-22-2023 08:52-0400 Respiratory rate 20 /min Dayanara CORTES Work Phone: [facility] 07-22-2023 08:52-0400 SaO2% (BldA) [Mass fraction] 100 % Dayanara CORTES Work Phone: [facility] 07-22-2023 08:52-0400 Systolic blood pressure 122 mm[Hg] Dayanara CORTES Work Phone: [facility] 06-17-2023 08:25-0500 Body height 157.5 cm Luís Andres MD Work Phone: [facility] 06-17-2023 08:25-0500 Body mass index (BMI) [Ratio] 29.29 kg/m2 Luís Andres MD Work Phone: [facility] 06-17-2023 08:25-0500 Body temperature 98.6 [degF] Luís Andres MD Work Phone: [facility] 06-17-2023 08:25-0500 Body weight 72.67 kg Luís Andres MD Work Phone: [facility] 06-17-2023 08:25-0500 Diastolic blood pressure 84 mm[Hg] Luís Andres MD Work Phone: [facility] 06-17-2023 08:25-0500 Heart rate 95 /min Luís Andres MD Work Phone: [facility] 06-17-2023 08:25-0500 SaO2% (BldA) [Mass fraction] 90 % Luís Andres MD Work Phone: [facility] 06-17-2023 08:25-0500 Systolic blood pressure 128 mm[Hg] Luís Andres MD Work Phone: [facility] 06-11-2023 15:12-0500 Body height 157.5 cm Joseph Sotelo MD Work Phone: [facility] 06-11-2023 15:12-0500 Body mass index (BMI) [Ratio] 28.53 kg/m2 Joseph Sotelo MD Work Phone: [facility] 06-11-2023 15:12-0500 Body temperature 97.81 [degF] Joseph Sotelo MD Work Phone: [facility] 06-11-2023 15:12-0500 Body weight 70.76 kg Joseph Sotelo MD Work Phone: [facility] 06-11-2023 15:12-0500 Diastolic blood pressure 60 mm[Hg] Joseph Sotelo MD Work Phone: [facility] 06-11-2023 15:12-0500 Heart rate 101 /min Joseph Sotelo MD Work Phone: [facility] 06-11-2023 15:12-0500 SaO2% (BldA) [Mass fraction] 99 % Joseph Sotelo MD Work Phone: [facility] 06-11-2023 15:12-0500 Systolic blood pressure 100 mm[Hg] Joseph Sotelo MD Work Phone: [facility] 06-03-2023 08:26-0500 Diastolic blood pressure 64 mm[Hg] Luís Andres MD Work Phone: [facility] 06-03-2023 08:26-0500 Systolic blood pressure 106 mm[Hg] Luís Andres MD Work Phone: [facility] 06-03-2023 08:12-0500 Body height 157.5 cm Luís Andres MD Work Phone: [facility] 06-03-2023 08:12-0500 Body mass index (BMI) [Ratio] 29.26 kg/m2 Luís Andres MD Work Phone: [facility] 06-03-2023 08:12-0500 Body weight 72.58 kg Luís Andres MD Work Phone: [facility] 03-24-2023 10:40-0500 Body height 154.1 cm Vu Juarez MD MPH Work Phone: [facility] 03-24-2023 10:40-0500 Body mass index (BMI) [Ratio] 31.92 kg/m2 Vu Juarez MD MPH Work Phone: [facility] 03-24-2023 10:40-0500 Body temperature 97.3 [degF] Vu Juarez MD MPH Work Phone: [facility] 03-24-2023 10:40-0500 Body weight 75.8 kg Vu Juarez MD MPH Work Phone: [facility] 03-24-2023 10:40-0500 Diastolic blood pressure 107 mm[Hg] Vu Juarez MD MPH Work Phone: [facility] 03-24-2023 10:40-0500 Heart rate 85 /min Vu Juarez MD MPH Work Phone: [facility] 03-24-2023 10:40-0500 Respiratory rate 16 /min Vu Juarez MD MPH Work Phone: [facility] 03-24-2023 10:40-0500 SaO2% (BldA) [Mass fraction] 98 % Vu Juarez MD MPH Work Phone: [facility] 03-24-2023 10:40-0500 Systolic blood pressure 148 mm[Hg] Vu Juarez MD MPH Work Phone: [facility] 09-05-2022 10:45-0400 Body height 155.57 cm Hilary Staton Other [employer] Other 09-05-2022 10:45-0400 Body mass index (BMI) [Ratio] 33.73 kg/m2 Hilary Staton Other [employer] Other 09-05-2022 10:45-0400 Body temperature 97.3 [degF] Hilary Staton Other [employer] Other 09-05-2022 10:45-0400 Body weight 81.65 kg Hilary Shemar Other [employer] Other 09-05-2022 10:45-0400 Diastolic blood pressure 98 mm[Hg] Hilary Staton Other [employer] Other 09-05-2022 10:45-0400 Respiratory rate 18 /min Hilary Staton Other [employer] Other 09-05-2022 10:45-0400 SaO2% (BldA) [Mass fraction] 99 % Hilary Staton Other [employer] Other 09-05-2022 10:45-0400 Systolic blood pressure 139 mm[Hg] Hilary Shemar Other [employer] Other 07-04-2014 13:22-0500 Blood Pressure Location Bryant IGLESIAS [facility] 07-04-2014 13:22-0500 Body temperature 97.7 [degF] Bryant IGLESIAS [facility] 07-04-2014 13:22-0500 Diastolic blood pressure 79 mm[Hg] Bryant IGLESIAS [facility] 07-04-2014 13:22-0500 Heart rate 96 /min Bryant IGLESIAS [facility] 07-04-2014 13:22-0500 Mean blood pressure 90 mm[Hg] Bryant IGLESIAS [facility] 07-04-2014 13:22-0500 Respiratory rate 16 /min Bryant IGLESIAS [facility] 07-04-2014 13:22-0500 SaO2% (BldA) [Mass fraction] 97 % Bryant IGLESIAS [facility] 07-04-2014 13:22-0500 Systolic blood pressure 111 mm[Hg] Bryant IGLESIAS [facility] Encounters Encounter Date Encounter Type Care Provider Facility Start: 01-07-2024 ambulatory Bryant R VANESSA Facili ty:[id number] Start: 12-23-2023 End: 12-24-2023 ambulatory Bryant R IGLESIAS Facility:[id number] Start: 12-23-2023 End: 12-23-2023 Patient encounter procedure Bryant IGLESIAS [facility] Start: 12-22-2023 ambulatory Bryantdustin IGLESIAS Facility :[facility] Start: 09-25-2023 End: 09-26-2023 ambulatory [facility] Start: 08-05-2023 End: 08-05-2023 ambulatory [facility] Start: 08-05-2023 End: 08-05-2023 Postop follow up visit related to original px Dayanara CORTES Work Phone: [facility] - Medical Oncology Comment on above: Encounter for postop erative care (Primary Dx); Menopausal symptoms Start: 08-03-2023 Telephone encounter Dayanara CORTES Work Phone: [facility] Start: 07-30-2023 End: 07-30-2023 Postop follow up visit related to original px Basel Sharda PA Work Phone: [facility] Comment on above: Abdominal wall mass (Primary Dx) Start: 07-27-2023 Orders Only Dayanara CORTES Work Phone: [facility] Comment on above: Muscle spasms of bot h lower extremities (Primary Dx) Start: 07-22-2023 End: 07-22-2023 ambulatory [facility] Start: 07-22-2023 End: 07-22-2023 Postop follow up visit related to original px Dayanara Carroll SEBASTIAN Work Phone: [facility] - Medical Oncology Comment on above: Encounter for postop erative care (Primary Dx); Menopausal symptoms; Acute serous otitis media, recurrence not specified, unspecified laterality Start: 07-13-2023 Telephone encounter Sheyla Mendoza RN [facility] Start: 07-07-2023 End: 07-07-2023 Evaluation and management of inpatient [facility] Start: 07-06-2023 End: 07-07-2023 Evaluation and management of inpatient [facility] Charity MCKENNA [facility] Start: 06-29-2023 End: 06-29-2023 ambulatory [facility] Start: 06-29-2023 End: 06-29-2023 Admission to [facility] Phone Call Provider 2 [facility] On [facility] Start: 06-26-2023 End: 06-27-2023 ambulatory LUÍS Nash MCKENNA [facility] Start: 06-26-2023 Encounter for other preprocedural examination [facility] Start: 06-25-2023 Orders Only Luís Andres MD Work Phone: [facility] Comment on above: Preop testing (Prima ry Dx) Start: 06-25-2023 Patient encounter status Luís Andres MD Work Phone: [facility] Start: 06-17-2023 End: 06-17-2023 ambulatory LUÍS ANDRES [facility] Start: 06-17-2023 End: 06-17-2023 Office outpatient visit 40 minutes Luís Andres MD Work Phone: [facility] Comment on above: Pelvic mass (Primary Dx) Start: 2023 End: 06-16-2023 ambulatory [facility] Start: 06-11-2023 End: 06-11-2023 ambulatory JOSEPH [...] [facility] Start: 06-03-2023 End: 06-03-2023 ambulatory [facility] Start: 06-03-2023 End: 06-03-2023 Office outpatient new 60 minutes Luís Andres MD Work Phone: [facility] Comment on above: Pelvic mass (Primary Dx); Endometriosis; 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; Pelvic pain Start: 05-22-2023 ambulatory [facility] Start: 05-20-2023 Telephone encounter Sheyla Mendoza RN [facility] Start: 05-19-2023 End: 05-19-2023 ambulatory COMPA JAMISON Not Available Start: 05-06-2023 End: 05-06-2023 ambulatory JOSEPH SOTELO Not Available Start: 04-08-2023 End: 04-08-2023 Office outpatient new 45 minutes Jeremy Jang MD Work Phone: [facility] Comment on above: Endometrioma Start: 04-08-2023 End: 04-08-2023 ambulatory JOSEPH SOTELO Not Available Start: 03-24-2023 End: 03-24-2023 [facility] Start: 03-24-2023 End: 03-24-2023 Office outpatient new 60 minutes Vu Juarez MD MPH Work Phone: [facility] Comment on above: Endometrioma (Primar y Dx) Start: 09-05-2022 End: 09-05-2022 ambulatory Hilary Staton Other [employer] Other Start: 09-05-2022 Office outpatient ne w 20 minutes Hilary Staton [facility] Start: 08-05-2022 End: 08-06-2022 ambulatory SHAIKH Neema BRADLEYADITI Facility:[facility] Start: 06-16-2022 End: 06-16-2022 ambulatory AYDIN CAMACHO Facility:[facility] Start: 04-23-2022 End: 04-24-2022 ambulatory Kristopher Guererro Facility:[facility] Start: 12-30-2021 End: 12-31-[address] JOSEPH SOTELO Facility: Start: 12-28-2021 End: 12-29-[address] JOSEPH SOTELO Facility: Start: 11-19-2021 End: 11-20-2021 ambulatory JOSEPH SOTELO Facility:[facility] Start: 11-02-2021 End: 11-02-2021 ambulatory JOSEPH SOTELO Facility:[facility] Start: 09-27-2021 End: 09-28-[address] JOSEPH SOTELO Facility:[facility] Start: 08-20-2021 End: 08-21-[address] JOSEPH SOTELO Facility: Start: 05-14-2021 End: 05-14-2021 ambulatory JOSEPH SOTELO Facility:[facility] Procedures Date Procedure Procedure Detail Performing Clinician Start: 07-22-2023 Follow-up visit Follow-up DAYANARA CARROLL Start: 07-06-2023 Adult depression screening assessment Sheyla Mendoza RN Start: 07-13-2014 Tonsillectomy Bryant IGLESIAS Colonoscopy Bryant IGLESIAS Comment on above: x2 Endometrial ablation Bryant IGLESIAS Esophagogastroduodenoscopy P soledad IGLESIAS Hysterectomy Bryant IGLESIAS Ligation of fallopian tube Veena IGLESIAS Comment on above: essure procedure Plan of Treatment Date Care Activity Detail Author Start: 2036 Zoster Vaccines (1 of 2) Zoste r Vaccines (1 of 2) [facility] Start: 07-28-2027 DTaP,Tdap and Td Vaccines (6 - Td or Tdap) DTaP,Tdap and Td Vaccines (6 - Td or Tdap) [facility] Start: 07-28-2027 DTaP/Tdap/Td Vaccine s (6 - Td or Tdap) DTaP/Tdap/Td Vaccines (6 - Td or Tdap) [facility] Start: 08-04-2024 Adult BMI Screening Adult BMI Screen ing [facility] Start: 07-29-2024 Adult BMI Screening Adult BMI Screen ing [facility] Start: 07-29-2024 Tobacco Screening Tobacco Screening [facility] Start: 07-21-2024 Adult BMI Screening Adult BMI Screen ing [facility] Start: 07-21-2024 Tobacco Screening Tobacco Screening [facility] Start: 07-06-2024 Adult BMI Screening Adult BMI Screen ing [facility] Start: 07-05-2024 Depression Screening Depression Scre ening [facility] Start: 07-05-2024 Tobacco Screening Tobacco Screening [facility] Start: 06-29-2024 Tobacco Screening Tobacco Screening [facility] Start: 06-17-2024 Adult BMI Screening Adult BMI Screen ing [facility] Start: 06-17-2024 Tobacco Screening Tobacco Screening [facility] Start: 06-03-2024 Adult BMI Screening Adult BMI Screen ing [facility] Start: 06-03-2024 Tobacco Screening Tobacco Screening [facility] Start: 01-03-2024 Influenza vaccination Influenza Vacc ine [facility] Start: 08-10-2023 End: 08-10-2023 Patient encounter procedure 08/10/2023 2:45 PM EDT Office Visit [facility] [address] [place] [address] Joseph Sotelo MD [address] [place] [id number] [facility] Start: 08-05-2023 End: 08-05-2023 Patient encounter procedure [facility] - Medical Oncology Start: 07-30-2023 End: 07-30-2023 Patient encounter procedure 07/30/2023 3:00 PM EDT Office Visit [facility] [address] [place] [address] [facility] Start: 07-22-2023 End: 07-22-2023 Patient encounter procedure 07/22/2023 9:00 AM EDT Office Visit [facility] - Medical Oncology [address] [place] [address] [place] [address] [place] [address] [address] [place] [address] Diana Rec[facility] - Medical Oncology Start: 07-06-2023 End: 07-06-2023 Admission to same day surgery center [facility] Surgery Comment on above: DAVINCI SALPINGO OOP HORECTOMY/ ABDOMINAL WALL RESECTION ENDOMETRIOSIS [facility] SALPINGO OOP HORECTOMY Start: 07-06-2023 End: 07-06-2023 DAVINCI SALPINGO OOPHORECTOMY DAVINCI SALPINGO OOPHORECTOMY PELVIC PAIN 07/06/2023 10:00 AM EST [facility] Start: 07-06-2023 End: 07-06-2023 Laps fulg/exc ovary viscera/peritoneal surface DAVINCI FULGURATION ENDOMETRIAL IMPLANTS PELVIC PAIN 07/06/2023 10:00 AM EST [facility] Start: 07-06-2023 Subsequent hospital visit by physician 07/06/2023 10:00 AM EST Hospital Encounter [facility] Surgery [facility] [place] [address] Luís Andres MD [address], [address] [place] [address] [facility] - Surgery Start: 07-06-2023 End: 07-06-2023 Unlisted laparoscopic px abd pertoneum & omentum DAVINCI RESECTION MASS PERITONEAL PELVIC PAIN 07/06/2023 10:00 AM EST [facility] Start: 06-29-2023 End: 06-29-2023 Admission to establishment 06/29/2023 12:45 PM EST Support [facility] On [address] [address] [facility] On [facility] Start: 06-17-2023 End: 06-17-2023 Patient encounter procedure 06/17/2023 8:30 AM EST Office Visit [facility] [address] [place] [address] [address] [place] [phone] Luís [place] [address] [place] [address], [address] [place] [address] [facility] Start: 06-11-2023 End: 06-11-2023 Patient encounter procedure 06/11/2023 3:15 PM EST Office Visit [facility] [address] [place] [phone] Joseph Sotelo MD [address] [place] [address] Arrived [facility] Comment on above: Arrived Start: 06-03-2023 End: 06-03-2024 MR Pelvis WO contrast MR pelvis without contrast Imaging Routine Pelvic mass Endometriosis Expected: 06/03/2023, Expires: 06/03/2024 [facility] Work Phone: Comment on above: Expected: 06/03/2023 , Expires: 06/03/2024 Start: 06-03-2023 End: 06-03-2023 Patient encounter procedure 06/03/2023 8:00 AM EST Office Visit [facility] [address] [place] [address] [address] [place] [phone] Luís Andres MD [address] [place] [address] [facility] Start: 01-02-2023 COVID-19 Vaccine ( season) COVID-19 Vaccine ( season) [facility] Start: 01-02-2023 Influenza vaccination [facility] Start: 04-26-2021 COVID-19 Vaccine (4 - Moderna series) COVID-19 Vaccine (4 - Moderna series) [facility] Start: 12-24-2017 Varicella vaccination Varicell a Vaccines (2 of 2 - 13+ 2-dose series) [facility] Start: 2007 Screening for malign ant neoplasm of cervix [facility] Start: 2004 Adult BMI Follow Up Plan Adult BMI Follow Up Plan [facility] Start: 2004 Adult BMI Screening Adult BMI Screen ing [facility] Start: 2004 Diabetes mellitus screening Diabetes Screening [facility] Start: 2004 Hepatitis C screening Hepatitis C [facility] Start: 1998 Depression Screening Depression Scre ening [facility] Start: 1998 Tobacco Screening Tobacco Screening [facility] Start: 1986 HIV screening HIV Screening [facility] Start: [address] Lip[address]id Panel [facility] Start: 1986 Yearly Adult Physical Yearly Adult P hysical [facility] End: 06-25-2024 CBC W Auto Differential panel - Blood CBC with auto diff Lab Routine Preop testing 1 Occurrences starting 06/25/2023 until 06/25/2024 [facility] Work Phone: Comment on above: 1 Occurrences starti ng 06/25/2023 until 06/25/2024 Immunizations Immunization Date Immunization Notes Care Provider Fa cility 02-18-2021 influenza, injectabl e, quadrivalent, preservative free Sheyla Mendoza RN [facility] 02-18-2021 influenza virus vaccine, unspecified formulation Vu Juarez MD MPH Work Phone: [facility] Work Phone: 01-31-2020 influenza, injectabl e, quadrivalent, preservative free Sheyla Mendoza RN [facility] 01-31-2020 influenza virus vaccine, unspecified formulation Sheyla Mendoza RN [facility] 01-29-2020 influenza, injectabl e, quadrivalent, preservative free Sheyla Mendoza RN [facility] 01-13-2019 influenza, injectabl e, quadrivalent, preservative free Sheyla Mendoza RN [facility] 01-01-2018 influenza, injectabl e, quadrivalent, preservative free Sheyla Mendoza RN [facility] 11-26-2017 hepatitis B vaccine, adult dosage Sheyla Mendoza RN [facility] 11-26-2017 varicella virus vaccine Vu Juarez MD MPH Work Phone: [facility] Work Phone: 07-27-2017 hepatitis B vaccine, adult dosage Sheyla Mendoza RN [facility] 07-27-2017 tetanus toxoid, reduced diphtheria toxoid, and acellular pertussis vaccine, adsorbed Sheyla Mendoza RN [facility] 01-11-2014 influenza, seasonal, injectable, preservative free Hilary Staton Other [employer] Other 12-28-1998 hepatitis B vaccine, pediatric or pediatric/adolescent dosage Sheyla Mendoza RN [facility] 12-28-1998 measles, mumps and rubella virus vaccine Sheyla Mendoza RN [facility] 12-28-1998 TD(adult) unspecifie d formulation Sheyla Mendoza RN [facility] 07-01-1991 diphtheria, tetanus toxoids and pertussis vaccine Sheyla Mendoza RN [facility] 07-01-1991 trivalent poliovirus vaccine, live, oral Sheyla Mendoza RN [facility] 01-30-1989 diphtheria, tetanus toxoids and pertussis vaccine Sheyla Mendoza RN [facility] 01-30-1989 measles, mumps and rubella virus vaccine Sheyla Mendoza RN [facility] 1986 diphtheria, tetanus toxoids and pertussis vaccine Sheyla Mendoza RN [facility] 1986 trivalent poliovirus vaccine, live, oral Sheyla Mendoza RN [facility] 1986 diphtheria, tetanus toxoids and pertussis vaccine Sheyla Mendoza RN [facility] 1986 trivalent poliovirus vaccine, live, oral Sheyla Mendoza RN [facility] Payers Date Payer Category Payer Unknown [id number] [id number] 2014 Unknown [id number] 1986 Unknown [id number] 2.16.84 0.1.478455.3.579.2.593 1986 Unknown [id number] 2.16.84 0.1.526377.3.579.2.593 1986 Unknown [id number] 2.16.84 0.1.003002.3.579.2.593 1986 Unknown [id number] 2.16.84 0.1.676394.3.579.2.593 1986 Unknown [id number] 2.16.84 0.1.314094.3.579.2.593 1986 Unknown [id number] 2.16.8 40.1.139425.3.579.2.1245 1986 Unknown [id number] 2.16.84 0.1.207989.3.579.2.1286 1986 Unknown [id number] 2.16.84 0.1.206091.3.579.2.1286 1986 Unknown [id number] 2.16.84 0.1.864506.3.579.2.1259 1986 Unknown [id number] 2.16.84 0.1.497060.3.579.2.1259 1986 Unknown [id number] 2.16.840 .1.421758.3.579.2.1259 1986 Unknown [id number] 2.16.840 .1.155845.3.579.2.1259 1986 Unknown [id number] 2.16.8 40.1.467259.3.579.2.1286 1986 Unknown [id number] 2.16.8 40.1.249499.3.579.2.1286 1986 Unknown [id number] 2.16.8 40.1.803397.3.579.2.1285 1986 Unknown [id number] 2.16.8 40.1.536791.3.579.2.1285 1986 Unknown [id number] 2.16.8 40.1.323249.3.579.2.1285 1986 Unknown [id number] 2.16.8 40.1.553358.3.579.2.1286 1986 Unknown [id number] 2.16.8 40.1.685526.3.579.2.1285 1986 Unknown [id number] 2.16.8 40.1.032689.3.579.2.6 1986 Unknown [id number] 2.16.8 40.1.787652.3.579.2.1285 1986 Unknown [id number] 2.16.8 40.1.321457.3.579.2.128 1986 Unknown [id number] 2.16.8 40.1.303763.3.579.2.1285 1986 Unknown [id number] 2.16.8 40.1.730182.3.579.2.128 1986 Unknown [id number] 2.16.8 40.1.414117.3.579.2.727 1986 Unknown [id number] 2.16.8 40.1.574457.3.579.2.727 1986 Unknown [id number] 2.16.8 40.1.240031.3.579.2.727 1959 Self-pay 1959 Unknown [id number] Unknown [id number] 2.16.84 0.1.576153.3.579.2.593 Social History Date Type Detail Facility Unknown if ever smoked [employer] Other Start: 05-30-2020 End: 04-08-2023 [facility] Assigned At [facility] Tobacco smoking stat [facility] Tobacco smoking consumption unknown [facility] Work Phone: Start: 1986 Sex Assigned At Not on file [facility] Work Phone: Start: 03-14-2023 End: 04-08-2023 Exposure to SARS-CoV-2 (event) Not sure [facility] Start: 04-08-2023 End: 12-23-2023 Tobacco smoking status NHIS Never smoked tobacco [facility] Start: 04-08-2023 End: 06-29-2023 Tobacco use and exposure Smokeless tobacco non-user [facility] Work Phone: Start: 04-08-2023 Alcohol intake Ex-drinker (finding) [facility] Work Phone: Start: 05-30-2020 End: 04-08-2023 History of Social function [facility] Start: 11-26-2018 End: 07-30-2023 Alcohol intake Current drinker of alcohol (finding) [facility] Housing Instability [facility] Start: 11-02-2017 Alcohol Comment socially [facility] Start: 05-19-2023 End: 06-11-2023 Alcohol intake Lifetime [...] History of tobacco use Passive smoker [facility] Start: 06-29-2023 Alcohol Comment 0-1 per month [employer] Medical Equipment Procedure Code Equipment Code Equipment Origin al Text Equipment Identifier Dates Mesh [id number] Flt Vcl Abs Wvn Srg Hrn Repr - [id number] Start: 07-06-2023 Goals Date Patient Goal Desired Activity /State Personal health goal Comment on above: Formatting of this n ote might be different from the original. Evaluation of progress towards goal: Patient plans to discharge home with self care and with assistance from family. Functional Status Date Assessment Result Facility 12-23-2023 Functional Status N/A [facility] Clinical Notes 09-28-2021 to 12-23-2023 SEBASTIAN [...] Follow these instructions at home: Medicines Take ukaq-vqy-moynhgw and prescription medicines only as told by [...] prevent or treat constipation, such as: ?Take ddpr-rxz-rdlqhah or prescription medicines. ?Eat foods that are [...] provider. Document Revised: 08/27/2022 Document Reviewed: 12/23/2021 [employer]Net Patient Education 2022 [employer]. 12/23/2023 14:47:10 Laser Therapy for Kidney Stones [...] including vitamins, herbs, eye drops, creams, and fsek-qsj-sflhzeu medicines. Any problems you or family members [...] provider tells you to take them. ?Taking ecvx-jaz-ocfnjdh medicines, vitamins, herbs, and supplements. Eating and [...] provider. Document Revised: 08/27/2022 Document Reviewed: 12/23/2021 [employer] Patient Education 2022 [employer]. Follow Up Care 12/22/2023 08:45:54 With:VANESSA LYLES, Bryant Carlos, URL Address: [facility] [address] , [place] [phone] When: Unknown Comments:saeid Em URS/laser litho/possible stent plaement [facility] 12-23-2023 Note Patient Education Nephrology Laser Therapy for Kidney Stones, Care After This sheet gives you information about how to care for yourself after your procedure. Your health care provider may also give you more specific instructions. If you have problems or questions, contact your health care provider. What can I expect after the procedure? After the procedure, it is common to have: ? Pain. ? A burning sensation while urinating. ? Small amounts of blood in your urine. ? A need to urinate frequently. ? Pieces of kidney stone in your urine. ? Mild discomfort when urinating that may be felt in the back. You may experience this if you have a flexible tube (stent) in your ureter. Follow these instructions at home: Medicines ? Take kjni-wui-lhvqkul and prescription medicines only as told by your health care provider. ? If you were prescribed an antibiotic medicine, take it as told by your health care provider. Do not stop taking the antibiotic even if you start to feel better. ? Ask your health care provider if the medicine prescribed to you: ? Requires you to avoid driving or using heavy machinery. ? Can cause constipation. You may need to take actions to prevent or treat constipation, such as: ? Take xzzg-lho-lwmppnz or prescription medicines. ? Eat foods that are high in fiber, such as beans, whole grains, and fresh fruits and vegetables. ? Limit foods that are high in fat and processed sugars, such as fried or sweet foods. Activity ? Return to your normal activities as told by your health care provider. Ask your health care provider what activities are safe for you. ? Do not drive for 24 hours if you were given a sedative during your procedure. General instructions ? If your health care provider approves, you may take a warm bath to ease discomfort and burning. ? Drink enough fluid to keep your urine pale yellow. Your health care provider may recommend drinking two 8 oz (237 mL) glasses of water per hour for a few hours after your procedure. ? You may be asked to strain your urine to collect any stone fragments that you pass. These fragments may be tested. ? Keep all follow-up visits as told by your health care provider. This is important. If you have a stent, you will need to return to your health care provider to have the stent removed. Contact a health care provider if you: ? Have pain or a burning feeling that lasts more than 2 days. ? Feel nauseous. ? Vomit more and more often. ? Have difficulty urinating. ? Have pain that gets worse or does not get better with medicine. Get help right away if: ? You are unable to urinate, even if your bladder feels full. ? You have: ? Bright red blood or blood clots in your urine. ? More blood in your urine. ? Severe pain or discomfort. ? A fever or shaking chills. ? Abdominal pain. ? Difficulty breathing. ? Swelling in your legs. This information is not intended to replace advice given to you by your health care provider. Make sure you discuss any questions you have with your health care provider. Document Revised: 08/27/2022 Document Reviewed: 12/23/2021 Elsevier Patient Education ? 2022 [employer]. Laser Therapy for Kidney Stones Laser therapy [...] kidney. Tell a health care provider about: ? Any allergies you have. ? All medicines you are taking, including vitamins, herbs, eye drops, creams, and mdvl-djx-dygeozd medicines. ? Any problems you or family members have had with anesthetic medicines. ? Any blood disorders you have. ? Any surgeries you have had. ? Any medical conditions you have. ? Whether you are or may be . What are the risks? Generally, this is a safe procedure. However, problems may occur, including: ? Infection. ? Bleeding. ? Allergic reactions to medicines. ? Damage to the urethra, bladder, or ureter. ? Urinary tract infection (UTI). ? Narrowing of the urethra (urethral stricture). ? Difficulty passing urine. ? Blockage of the kidney caused by a f (more content not included)... [facility] 08-05-2023 History of Presen t illness Narrative Subjective: Gissel Del Rosario female who is 38 y.o. female who is s/p a WLX-ECI-hmgnk of adhesions, endometriosis resection on 07/06/23. Pathology: [...] 07/06/2023 Performed by Luís Andres MD at [facility] LYSIS OF ADHESIONS X 60 MIN N/A 07/06/2023 Performed by Luís Andres MD at [facility] RESECTION MASS PERITONEAL/ SOFT TISSUE MASS REMOVAL POSTERIOR RECTUS SHEATH/EXCISIONAL DEBRIDMENT N/A 07/06/2023 Performed by Luis Antonio Flynn MD at [facility] SAL[facility]O OOPHORECTOMY Bilateral 07/06/2023 Performed by Luís Andres MD at [facility] ENDOMETRIAL ABLATION 2014 ESOPHAGOGASTRODUODENOSCOPY 2010 HYSTERECTOMY 04/16/2015 partial LITHOTRIPSY 2013 TONSILLECTOMY 2013 Past Medical History: Diagnosis Date Anxiety Dental disease one chipped tooth, right upper very back of mouth Depression Dizziness Endometriosis GERD (gastroesophageal reflux disease) Hypertension Kidney stones Pelvic pain PONV (postoperative nausea and vomiting) Pulmonary embolism ([facility]) 11/29/2010 during Sciatica Sinus tachycardia Visual [...] endometriosis. Re-evaluate with our team or benign horse race starter in 6 months. May consider transdermal estrogen, [...] *This note was completed using a voice outsole cementer machine system. Every effort was made to ensure accuracy. However, inadvertent computerized outsole cementer machine errors may be present. .Total time spent [...] Wang 08/05/23 1126 documented in this encounter [facility] [employer] 08-03-2023 Miscellaneous Notes Spoke with patient to move up her appt on 08/05/23 to 11am, patient confirmed. [facility] this [facility]23 Telephone encounter Note Spoke with patient to move up her appt on 08/05/23 to 11am, patient confirmed. [facility] 07-30-2023 History of Presen t illness Narrative [...] 5) follow-up with six-month Isaac Robin PA-C [facility] General Surgery [address] [place] [address] SEBASTIAN Romero 07/30/23 1454 documented in this encounter [facility] 07-22-2023 History of Presen t illness Narrative Subjective: Gissel Del Rosario female who is 38 y.o. female who is s/p a HBD-URK-ealkp of adhesions, endometriosis resection on 07/06/23. Pathology: [...] 07/06/2023 Performed by Luís Andres MD at [facility] LYSIS OF ADHESIONS X 60 MIN N/A 07/06/2023 Performed by Luís Andres MD at [facility] RESECTION MASS PERITONEAL/ SOFT TISSUE MASS REMOVAL POSTERIOR RECTUS SHEATH/EXCISIONAL DEBRIDMENT N/A 07/06/2023 Performed by Luis Antonio Flynn MD at [facility] SALPINGO OOPHORECTOMY Bilateral 07/06/2023 Performed by Luís Andres MD at [facility] ENDOMETRIAL ABLATION 2014 ESOPHAGOGASTRODUODENOSCOPY 2010 HYSTERECTOMY 04/16/2015 partial LITHOTRIPSY 2012 TONSILLECTOMY 2012 Past Medical History: Diagnosis Date Anxiety Dental disease one chipped tooth, right upper very back of mouth Depression Dizziness Endometriosis GERD (gastroesophageal reflux disease) Hypertension Kidney stones Pelvic pain PONV (postoperative nausea and vomiting) Pulmonary embolism ([facility]) 11/29/2010 during Sciatica Sinus tachycardia Visual [...] endometriosis. Re-evaluate with our team or benign horse race starter in 6 months. May consider transdermal estrogen, [...] *This note was completed using a voice outsole cementer machine system. Every effort was made to ensure accuracy. However, inadvertent computerized outsole cementer machine errors may be present. .Total time spent [...] Wang 07/22/23 0933 [facility] 07-13-2023 Miscellaneous Notes Patient called in with [...] scheduled for 07/21. documented in this encounter [facility] 07-13-2023 Telephone encounter Note Patient called in [...] questions. Post op appt scheduled for 07/21. [facility] 06-29-2023 Instructions Formatting of th is note might be different from the original. Your surgery/procedure is scheduled at [facility] on 07/06/2023 at 10 am Arrival Time 8 am [facility] Address: [address] [place] [address]. [place] [address] Park in Parking lot located on [facility]. Report to the Entrance B. Check in at the information desk the surgery. The waiting room located on the second floor. If you have any questions prior to surgery, please call Pre-Admission Clinic at [phone] between 7:30 am and 4:30 pm Thursday through Thursday. If you have questions the morning of surgery, please call the Pre-op Department at [phone]. Notify your SURGEON if you develop any [...] would like to schedule therapy at a [facility] facility, please call [phone] ([phone]). Do not use lotions, creams, powders, perfume, make up, cologne or after-shaves day of surgery. Remove ALL jewelry including wedding rings, body piercings,hair extensions that contain metal, nail cypriot, make-up, and contact lens. You may brush [...] RIGHTS AND RESPONSIBILITIES As a patient at [facility], you have the right to: Receive medical care and be informed of who is taking care of you Be treated with dignity and respect Have a family member/business development representative of choice and your physician notified of your admission Receive information and actively participate in decisions about your care and treatment Refuse care, treatment and services Decide who may provide your support and speak for you Access anabaptism and spiritual services Participate in ethical issues [...] of hospital charges and payment methods Patient/patient business development representative responsibilities are to: Provide information about health status to facilitate care, treatment and services Follow the treatment, plan, keep appointments and speak up when you do not understand the plan Respect the rights of other patients and healthcare personnel Follow organizational rules and regulations that support quality care and a safe environment Fulfill financial obligations as promptly as possible [facility] 06-29-2023 Miscellaneous Notes Your surgery/procedure is scheduled at [facility] on 07/06/2023 at 10 am Arrival Time 8 am [facility] Address: [address] [place] [address] Park in [address]1 Parking lot located on [facility]. Report to the Entrance B. Check in at the information desk the surgery. The waiting room located on the second floor. If you have any questions prior to surgery, please call Pre-Admission Clinic at [phone] between 7:30 am and 4:30 pm Thursday through Thursday. If you have questions the morning of surgery, please call the Pre-op Department at [phone]. Notify your SURGEON if you develop any [...] would like to schedule therapy at a [facility] facility, please call [phone] ([phone]). Do not use lotions, creams, powders, perfume, make up, cologne or after-shaves day of surgery. Remove ALL jewelry including wedding rings, body piercings,hair extensions that contain metal, nail cypriot, make-up, and contact lens. You may brush [...] RIGHTS AND RESPONSIBILITIES As a patient at [facility], you have the right to: Receive medical care and be informed of who is taking care of you Be treated with dignity and respect Have a family member/business development representative of choice and your physician notified of your admission Receive information and actively participate in decisions about your care and treatment Refuse care, treatment and services Decide who may provide your support and speak for you Access anabaptism and spiritual services Participate in ethical issues [...] of hospital charges and payment methods Patient/patient business development representative responsibilities are to: Provide information about [...] promptly as possible documented in this encounter [facility] 06-17-2023 History of Presen t illness Narrative [...] personal or family history of GI or pipe assembly worker malignancies. We reviewed her imaging as well [...] procedures Referring and communicating with other health critical care unit nurse (not separately reported) Documenting clinical information in the electronic or other health record Luís Andres MD [facility] this [facility] History of Presen t illness Narrative Associated Problem(s): Sinus tachycardia Symptoms stable with toprol and continue. 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 Associated Problem(s): Benign essential hypertension (CMS/HCC) BP remains low and stop zestoretic. Start lisinopril daily and monitor BP. Subjective Patient ID: Gissel Del Rosario is a 37 y.o. female who presents for Follow-up (1m). Follow up HTN, tachycardia, and abdominal mass. Patient continues to have abdominal pain. Seen by pipe assembly worker and felt mass related to endometriosis in [...] scar Continued pain and follow up with pipe assembly worker for surgery. documented in this encounter [facility] 06-03-2023 History of Presen t illness [...] personal or family history of GI or pipe assembly worker malignancies. We reviewed her imaging as well [...] procedures Referring and communicating with other health critical care unit nurse (not separately reported) Documenting clinical information in the electronic or other health record Luís Andres MD documented in this encounter [facility] 05-20-2023 Miscellaneous Notes Left to schedule ADVERTISING ACCOUNT MANAGER appointment with pipe assembly worker onc. Requested US and CT images be pushed via PACS from [employer]. documented in this encounter [facility] 05-20-2023 Telephone encounter Note Left to schedule ADVERTISING ACCOUNT MANAGER appointment with pipe assembly worker onc. Requested US and CT images be pushed via PACS from [employer]. [facility] 04-08-2023 History of Presen t illness Narrative [...] was negative but is to see a blast hole driller to further work this up as well. Jeremy Jang MD documented in this encounter [facility] Work Phone: 03-24-2023 History of Presen t [...] hernia specialists. --I will discuss with her horse race starter the value of abdominal exploration for additional [...] @TIMECUR@ @DATECUR@ documented in this encounter [facility] Work Phone: 09-05-2022 Evaluation note Encounter Date [...] understanding and is agreeable with treatment plan. [employer] Other 05-28-2022 NotePROCEDURE: XR PELVIS W_OBL MIN 3 VIEWS COMPARISON: HISTORY: Disorder of sacrum FINDINGS: BONES:No fracture, acute abnormality, or significant arthropathy. SOFT TISSUES:Negative. No visible soft tissue swelling. EFFUSION:None visible. OTHER: Negative. IMPRESSION: No acute abnormality Electronically authenticated by: ASHLEY CARRANZA Date: 2021-09-28 07:58[facility]05[facility]28[facility] NotePROCEDURE: XR TIB_FIB LT 2V COMPARISON: 07/17/2020 HISTORY: Pain in left leg FINDINGS: BONES:No acute fracture or dislocation. Stable sclerosis along the distal tibia. Enthesopathic spurring plantar calcaneus SOFT TISSUES:Negative. No visible soft tissue swelling. EFFUSION:None visible. OTHER: Negative. IMPRESSION: Stable exam, no interval change Electronically authenticated by: ASHLEY CARRANZA Date: 2021-09-28 07:56[facility] No data available for this section [facility] Evaluation note* Diagnosis Endometrioma- Primary Endometriosis, site unspecified documented in this encounter [facility] Work Phone: Evaluation note* Diagnosis Endometrioma Endometriosis, site unspecified documented in this encounter 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 Endometriosis in scar of skin documented [facility]* Diagnosis Pelvic mass- Primary Abdominal or pelvic swelling, mass or lump, unspecified site [facility] Diagnosis Preop testing- Primary Unspecified pre-operative examination [facility] Diagnosis Encounter for postoperative care- Primary Menopausal symptoms Symptomatic menopausal or female climacteric states Acute serous otitis media, recurrence not specified, unspecified laterality [facility] Diagnosis Muscle spasms of both lower extremities- Primary [facility] Diagnosis Abdominal wall mass- Primary Abdominal or pelvic swelling, mass or lump, unspecified site [facility] Diagnosis Encounter for postoperative care- Primary Menopausal symptoms Symptomatic menopausal or female climacteric states [facility] N[facility] - Reported* Type Description Date Medical History HTN (hypertension) Medical History Anxiety and depression Medical History migraine headache Medical History seasonal allergies Surgical History essure Surgical History EGD Surgical History C section Surgical History hysterectomy 2015 Hospitalization History PE Hospitalization History child x3 Hospitalization History demise x1 [employer] Other InstructionsNot on filedocumented in this encounter [...] available for this section [facility] Reason for referral (narrative)* Consultation (Routine) - Pending Review Specialty Diagnoses / Procedures Referred By Frankie salmon Referred To Contact General Surgery Diagnoses Pelvic mass Luís Andres MD [address] [place] [address] Luis Antonio Flynn MD [address] [place] [address] Referral ID Status Reason Start Date Expiration Date Visits Requested Visits Authorized [id number] Pending Review Specialty Services Required 06/17/2023 06/16/2024 1 1 [facility] Summary Purpose Family History No Family History Records FoundNo Family History Records FoundNo Family History Records FoundNo Family History Records FoundNo Family History Records FoundNo Family History Records FoundNo Family History Records FoundNo Family History Records Found No data available for this section No Family History Records Found Advance Directives No Advanced Directives Records FoundLatest Code Status on File Code Status Date Activated Date Inactivated Comments Full Code 07/06/2023 3:39 PM 07/07/2023 1:17 PM Reason for Referral Specialty Diagnoses / Procedures Referred By Frankie salmon Referred To Contact Radiology Diagnoses Pelvic mass Endometriosis Procedures MR pelvis without contrast Luís Andres MD [address] [place] [address] Referral ID Status Reason Start Date Expiration Date V isits Requested Visits Authorized [id number] Pending Review 06/03/2023 06/02/2024 1 1 Additional Source Comments INFORMATION SOURCE (unrecogn ized section and content) DATE CREATED AUTHOR 05/01/2022 [facility] DATE CREATED AUTHOR AUTHOR'S ORGANIZ ATION 08/10/2022 [facility] DATE CREATED AUTHOR AUTHOR'S ORGANIZ ATION 03/26/2023 [facility] DATE CREATED AUTHOR AUTHOR'S ORGANIZ ATION 05/24/2023 [facility] DATE CREATED AUTHOR AUTHOR'S ORGANIZ ATION 06/13/2023 [facility] DATE CREATED AUTHOR AUTHOR'S ORGANIZ ATION 06/18/2023 [facility] DATE CREATED AUTHOR AUTHOR'S ORGANIZ ATION 07/11/2023 [facility] DATE CREATED AUTHOR AUTHOR'S ORGANIZ ATION 09/27/2023 [facility] DATE CREATED AUTHOR AUTHOR'S ORGANIZ ATION 12/31/2023 [facility] REASON FOR VISIT (unrecogniz ed section and content) Reason Comments New Patient Visit Reason Comments Endometriosis Specialty Diagnoses / Procedures Referred By Contchacorta t Referred To Contact General Surgery Diagnoses Endometrioma Vu Juarez MD M[facility] [address] [facility] Department of Surgery-Surgical Oncology [place] [phone] [place] [address] [address] [facility] Department of Surgery-[place] [phone] Referral ID Status Reason Start Date Expiration Date Visits Requested Visits Authorized [id number] Authorized Specialty Services Required 3 03/30/2024 1 [...] Care Teams (unrecognized sec tion and content) Lubricating Machine Tender Relationship Specialty Start Date End Date Joseph Sotelo MD PCP - General Family Medicine 03/18/23 Lubricating Machine Tender Relationship Specialty Start Date End Date Joseph Sotelo MD [address] [place] [address] PCP - General Family Medicine 04/02/23 Lubricating Machine Tender Relationship Specialty Start Date End Date Joseph Sotelo MD [address] [place] [address] PCP - General 01/29/17 Lubricating Machine Tender Relationship Specialty Start Date End Date Joseph Sotelo MD [address] [place] [address] PCP - General 01/29/17 Lubricating Machine Tender Relationship Specialty Start Date End Date Joseph Sotelo MD PCP - General Cardiology 10/15/22 Lubricating Machine Tender Relationship Specialty Start Date End Date Joseph Sotelo MD PCP - General Cardiology 10/15/22 Lubricating Machine Tender Relationship Specialty Start Date End Date Joseph Sotelo MD [address] [facility] [place] [address] PCP - General 01/29/17 Lubricating Machine Tender Relationship Specialty Start Date End Date Joseph Sotelo MD [address] [facility] [place] [address] PCP - General 01/29/17 Lubricating Machine Tender Relationship Specialty Start Date End Date Joseph Sotelo MD [address] [facility] [place] [address] PCP - General 01/29/17 Lubricating Machine Tender Relationship Specialty Start Date End Date Joseph Sotelo MD [address] [facility] [place] [address] PCP - General 01/29/17 Lubricating Machine Tender Relationship Specialty Start Date End Date Joseph Sotelo MD [address] [facility] [place] [address] PCP - General 01/29/17 Lubricating Machine Tender Relationship Specialty Start Date End Date Joseph Sotelo MD [address] [facility] [place] [address] PCP - General 01/29/17 Lubricating Machine Tender Relationship Specialty Start Date End Date Joseph Sotelo MD [address] [place] [address] PCP - General 01/29/17 Lubricating Machine Tender Relationship Specialty Start Date End Date Joseph Sotelo MD [address] [place] [address] PCP - General 01/29/17 Lubricating Machine Tender Relationship Specialty Start Date End Date Joseph Sotelo MD [address] [place] [address] PCP - General 01/29/17 FOR RECORDS PERTAINING TO PATIENTS WHO [...] BE BASED ON THE PRIMARY CLINICAL RECORDS. [facility] [employer] [facility]. provides no warranty or guarantee of the accuracy or completeness of information in this document.
[2024-01-07] MEDS: LIDOCAINE 2% JELLY 10 ML UR (11:39)
[2024-01-07 11:40] VITALS: BP 100/61; PULSE 90; O2SAT 98
[2024-01-07 11:41] VITALS: BP 105/78; PULSE 89; O2SAT 98
--- NOTE | 2024-01-07 11:44 | P.URON_ITS ---
Urology Surgery Operative Note Operative Note Procedure Date: 01/07/24 Time Out Performed: yes Pre-op Diagnosis: Status post left ureteroscopic stone manipulation and stent placement. Post-op Diagnosis: same as pre-op Procedures performed: 1. Cystoscopy. 2. Left stent removal. Anesthesia: local Primary Surgeon: Bryant Iglesias Complications: None Estimated blood loss (mL): 0 Findings: Mildly softly encrusted stent Specimens: None Drains: None Indications for Procedures: This lady underwent ureteroscopic stone manipulation and renal stone antonette pulation and stent placement a few weeks ago. She now presents for cystoscopy and left stent removal. She has signed an informed consent. Detailed description of Procedure: The patient was kept on the [facility] bed and brought into the endoscopy suite. She was in the supine position. Her legs were frog-legged. Timeout was done by all parties in the room. We all agreed upon the patient's identification and the planned procedures for this patient. Genitalia were sterilely prepped and draped in the usual fashion. 2% lidocaine gel was passed per urethra. I started by passing on flexible cystoscope per urethra and into the bladder. The stent was visibly mildly encrusted with soft encrustation. I then passed a flexible grasping forceps and grasped the end of the stent. The scope and stent were then removed without difficulty. She was then discharged to home.
== END 2024-01-07 11:55 | disposition home or self-care (01) ==
PROVIDERS: PCP Family Medicine; Visit Provider Urology
PROC: (CPT 52310; principal; 2024-01-07 11:35)
DX: Z46.6 Encounter for fitting and adjustment of urinary device (principal); I10 Essential (primary) hypertension; K21.9 Gastro-esophageal reflux disease without esophagitis; Z86.711 Personal history of pulmonary embolism
CPT/HCPCS: 52310

== ENCOUNTER 2024-01-11 07:39 | Outpatient (OUT) | payer BC, SELFPAY | END 2024-01-11 07:40 | disposition home or self-care (01) | LOC: PST 07:39 | PROVIDERS: PCP Family Medicine; Visit Provider Urology | DX: Z01.818 Encounter for other preprocedural examination (principal); Z46.6 Encounter for fitting and adjustment of urinary device; I10 Essential (primary) hypertension; K21.9 Gastro-esophageal reflux disease without esophagitis; F32.A Depression, unspecified ==

== ENCOUNTER 2024-03-05 07:17 | Outpatient (OUT) | payer BC, SELFPAY ==
--- OUTSIDE RECORDS SUMMARY | 2024-02-12 12:23 | XMS_ITS | CCD ---
Author Organization [facility] Care Team Providers Care [employer] Name Role Phone JOSEPH SOTELO Primary Care Unavailable Kristopher Guerrero Admitting Unavailable NADJULIETTE, JOSEPH Carey Primary Care Unavailable Kristopher Guerrero Attending Unavailable ASHLEIGH, JOSEPH Carey Primary Care Unavailable NADEREBreanna, JOSEPH Carey Primary Care Unavailable NADEREBreanna, DR JOSEPH Carey Primary Care Unavailable JAMISON ., DR BOWERS Admitting Unavailable JAMISON ., DR BOWERS Attending Unavailable JAMISON ., DR BOWERS Consulting Unavailable ZIEBER, DR BRIAN Carlos Consulting Unavailable FAWADITI, SHAIKH Neema Consulting Unavailable TOMI, H Admitting Unavailable NADERER, DR JOSEPH Carey Primary Care Unavailable FAWADITI, DE LEON H Attending Unavailable JAYDEN MORGAN Consulting Unavailable AYDIN CAMACHO Attending Unavailable ASHLEIGH, DR JOSEPH Carey Primary Care Unavailable DOUG, AYDIN Admitting Unavailable AYDIN CAMACHO Consulting Unavailable ASHLEIGH, DR JOSEPH Carey Primary Care Unavailable NICHOLE, DR ALLIE Carlos Consulting Unavailable NICHOLE, DR ALLIE Carlos Admitting Unavailable NICHOLE, DR ALLIE Carlos Attending Unavailable BRYCE, AMINA Consulting Unavailable ASHLEIGH, DR JOSEPH Carey Primary [...] Primary Care Provider VU Parks Attending Unavailable COMPA VALENZUELA Referring Unavailable ASHLEIGH, JOSEPH KIRKPATRICK Primary Care UnavailJoseph Zavala MD Primary Care Provider Joseph Sotelo MD Primary Care Provider [phone] ASHLEIGH, JOSEPH Referring Unavailable NADERER, JOSEPH Primary Care Unavailable NADERER, JOSEPH Referring Unavailable NADERER, JOSEPH Primary Care Unavailable NADERER, JOSEPH Attending Unavailable COMPA VALENZUELA Attending Unavailable NADERER, JOSEPH Attending Unavailable NADERER, JOSEPH Attending Unavailable NadereJoseph cralos MD Primary Care Provider LUÍS ANDRES Attending Unavailable NADERER, JOSEPH Referring Unavailable NADERER, JOSEPH Primary Care Unavailable LUÍS ANDRES Attending Unavailable NADERER, JOSEPH Referring Unavailable NADERER, JOSEPH Primary Care Unavailable DAYANARA CARROLL Attending Unavailable NADERER, JOSEPH Referring Unavailable NADERER, JOSEPH Primary Care Unavailable DAYANARA CARROLL Attending Unavailable NADERER, JOESPH Referring Unavailable NADERER, JOSEPH Primary Care Unavailable LUÍS ANDRES Attending Unavailable LUÍS ANDRES Referring Unavailable NADERER, JOSEPH Primary Care Unavailable LUÍS ANDRES Referring Unavailable NADERER, JOSEPH Primary Care Unavailable DAYANARA CARROLL Referring Unavailable NADERER, JOSEPH Primary Care Unavailable DAYANARA CARROLL Attending Unavailable NONE, XXXX Primary Care Physician Unavailab LUÍS Abel Admitting Unavailable LUÍS ANDRES Attending Unavailable LUÍS ANDRES Referring Unavailable NADERER, JOSEPH Primary Care Unavailable ELSI RICK Attending Unavailable NADERER, JOSEPH Primary Care Unavailable NADERER, JOSEPH Referring Unavailable NADERER, JOSEPH Primary Care Unavailable KHAI HERNDON Attending Unavailable NADERER, JOSEPH Referring Unavailable NADERER, JOSEHP Primary Care Unavailable ABUNDIO FLYNN Attending Unavailable NADERER, JOSEPH Referring Unavailable NADERER, JOSEPH Primary Care Unavailable Bryant IGLESIAS Attending Unavailable Bryant IGLESIAS Attending Unavailable Bryant [...] tablet by mouth every six hours HYDROcodone-acetaminophen ([place]) 5-325 MG tablet Take 1 tablet by [...] 01/28/2021 Active take 1 capsule by mo ut in the morning DULoxetine (Cymbalta) 60 MG [...] oral tablet (14 sources) beta-Adrenergic Fredi Start: 024 take 1 tablet by mouth once daily metoprolol succinate 25 mg ER Tab 25 mg = 1 tab(s), Oral, Daily Start Date: 12/23/23 Status: Ordered Start: 05-06-2023 take 1 tablet by rosa every twenty-four hours in the morning metoprolol [...] Start: 01-13-2015 take 1 capsule by mo ut once daily before breakfast omeprazole (PriLOSEC) 40 [...] mg/3 mL) pen injector (2 sources) Start: 3 Ozempic 0.25 mg or 0.5 mg (2 mg/3 mL) pen injector OZEMPIC 0.25 mg or 0.5 mg (2 mg/3 mL) pen injector (4 sources) Start: 3 OZEMPIC 0.25 mg or 0.5 mg (2 mg/3 mL) pen injector polyethylene glycol 3350 72010 mg powder for oral solution (15 sources) [...] Classification Problem Date Documented Da te Episodic/Chronic Acute and chronic tonsillitis (1 source) Chronic [...] (1 source) Diarrhea; Translations: [Diarrhea] Episodic Other non-traumatic joint disorders (3 sources) [...] swelling, mass and lump, trunk] 07-30-2023 Episodic Other skin disorders (1 source) Localized swelling, mass and lump, trunk; Translations: [Localized swelling, mass and lump, trunk] Onset: 4 Episodic Otitis media and related conditions (2 [...] Unclassified (1 source) New Patient Onset: 4 Unclassified (1 source) Establish Care Onset: 4 Unclassified (1 source) Post-op Onset: 4 Past or Other Problems Problem [...] source) Pleurodynia; Translations: [PLEURODYNIA] Onset: 12-31-2021 Episodic Other nervous system disorders (1 source) Other acute postprocedural pain; Translations: [Other acute postprocedural pain] Onset: 07-06-2023 Episodic Phlebitis; thrombophlebitis and thromboembolism (5 sources) [...] stent plaement Where: [facility] [address], [place] [address] [phone] Medications What How Much When Instructions Unchanged [...] these instructions at home: Medicines ? Take widq-vvu-mwaaayt and prescription medicines only as told by your health care provider. ? If you were prescribed an antibiotic medicine, take it as told by your health care provider. Do not stop taking the antibiotic even if you start to feel better. ? As (more content not included)... Normal [facility] Urology Office/Clinic Noteon 12-23-2023 Urology Office/Clinic Note Urology Office/Clinic Note Chief Complaint NEW PT. hospital follow up HPI Staff New Pt. Pt was seen at [facility] due to abdominal pain. KUB 12/21/23, [...] female new pt here for f/u to [facility] ER visit due to kidney stones.. 1. Kidney stones (N20.0: Calculus of kidney) Hx of kidney stones, never required intervention. Saw Dr. Briones, urologist in [place], in the past. CT AP wo con [...] See #1. Follow-up With When Contact Information VANESSA LYLES, Bryant Carlos, [facility] [address] [place] [phone] Additional Instructions: sched L URS/laser litho/possible stent plaement Patient Education Laser Therapy for Kidney Stones, Care After Laser Therapy for Kidney Stones Tia Diaz, personally scribed for Dr. Iglesias on 12/23/2023 14:51:27. . Documentation recorded by the Tia breen, accurately reflects the services(s) I performed and decisions made by me. Authenticated by Dr. Iglesias on 12/23/2023 14:57:37. Problem List/Past Medical History Ongoing Acid reflux -JUN-2014 16:59:21<$> ADHD Arthritis Chronic tonsillitis Depression Extreme obesity Flank pain HTN - Hypertension Kidney stones Left ureteral (more content not included)... Normal [facility] Comment on above: Result Comment: Elec tronically Signed By: Bryant IGLESIAS MD\.br\Date and Time Signed: 12/23/23 14:57 EDT\.br\Electronically Co-Signed By: Tia Quezada\.mehran\Date and Time Co-Signed: 12/23/23 14:52 EDT XR [...] Roberson MD on 09/26/2023 9:30 AM Normal [facility] XR HIP LT 2-3 VIEWS W [...] Menchaca MD on 09/26/2023 6:59 PM Normal [facility] BASIC METABOLIC PANLon 07-05 Anion gap [Moles/Vol] 7 mmol/L Normal 5-15 [facility] Comment on above: Performed By: #### B ZAIN, CBCA #### [facility] ([id number]) [address], [address] [place] [address] Calcium [Mass/Vol] 7.8 mg/dL Low 8.5-10.5 [facility] Comment on above: Performed By: #### B ZAIN, CBCA #### [facility] ([id number]) [address], [address] [place] [address] Chloride [Moles/Vol] 111 mmol/L High 98-109 [facility] Comment on above: Performed By: #### B MP, CBCA #### [facility] ([id number]) [address], [address] [place] [address] CO2 [Moles/Vol] 22 mmol/L Normal 22-32 [facility] Comment on above: Performed By: #### B HUY PITTMAN #### [facility] ([id number]) [address] [address] [place] [address] Creatinine [Mass/Vol] 0.62 mg/dL Normal 0.40-1.00 [facility] Comment on above: Result Comment: METH OD TRACEABLE TO IDMS STANDARD Performed By: #### B HUY PITTMAN #### [facility] ([id number]) [address] [address] [place] [address] eGFR (CKD-EPI) NON-RACE DEPENDENT >90 Normal >59 [facility] Comment on above: Result Comment: Reported eGFR is based on the CKD-EPI 2020 equation that does not use a race coefficient. Performed By: #### B HUY PITTMAN #### [facility] ([id number]) [address] [place] [address] Glucose [Mass/Vol] 118 mg/dL High 65-99 [facility] Comment on above: Performed By: #### B HUY PITTMAN #### [facility] ([id number]) [address] [address] [place] [address] Potassium [Moles/Vol] 3.6 mmol/L Normal 3.5-5.0 [facility] Comment on above: Performed By: #### B HUY PITTMAN #### [facility] ([id number]) [address] [address] [place] [address] Sodium [Moles/Vol] 140 mmol/L Normal 134-146 [facility] Comment on above: Performed By: #### B HUY PITTMAN #### [facility] ([id number]) [address] [address] [place] [address] Urea nitrogen [Mass/Vol] 10 mg/dL Normal 5-23 [facility] Comment on above: Performed By: #### B MP, CBCA #### [facility] ([id number]) [address] [address] [place] [address] CBC AND AUTO DIFFon 07-06-19 24 ABSOLUTE BASOPHIL 0.0 X10E9/L Normal 0.0-0.2 [facility] Comment on above: Performed By: #### B MP, CBCA #### [facility] ([id number]) [address], [address] [place] [address] ABSOLUTE NEUTROPHIL 12.5 X10E9/L High 1.5-6.6 [facility] Comment on above: Performed By: #### B MP, CBCA #### [facility] ([id number]) [address] [address] [place] [address] Basophils/100 WBC (Bld) 0.1 % Normal [facility] Comment on above: Performed By: #### B MP, CBCA #### [facility] ([id number]) [address] [address] Eosinophils (Bld) [#/Vol] 0.0 10*3/uL Normal 0.0-0.4 [facility] Comment on above: Performed By: #### B MP, CBCA #### [facility] ([id number]) [address] [address] Eosinophils/100 WBC (Bld) 0.0 % Normal [facility] Comment on above: Performed By: #### B MP, CBCA #### [facility] ([id number]) [address] [address] Erythrocyte distribution width (RBC) [Ratio] 14.1 % Normal 11.5-15.0 [facility] Comment on above: Performed By: #### B MP, CBCA #### [facility] ([id number]) [address] [place] [address] Hematocrit (Bld) [Volume fraction] 38.7 % Normal 35-47 [facility] Comment on above: Performed By: #### B ZAIN, CBCA #### [facility] ([id number]) [address], [address] [place] [address] Hemoglobin (Bld) [Mass/Vol] 13.0 g/dL Normal 11.7-15.5 [facility] Comment on above: Performed By: #### B MP, CBCA #### [facility] ([id number]) [address], [facility] [address] [place] [address] Lymphocytes (Bld) [#/Vol] 0.8 10*3/uL Low 1.0-3.5 [facility] Comment on above: Performed By: #### B ZAIN, CBCA #### [facility] ([id number]) [address], [address] [place] [address] Lymphocytes/100 WBC (Bld) 5.9 % Normal [facility] Comment on above: Performed By: #### B ZAIN, CBCA #### [facility] ([id number]) [address], [address] [place] [address] MCH (RBC) [Entitic mass] 29.7 pg Normal 27-34 [facility] Comment on above: Performed By: #### B MP, CBCA #### [facility] ([id number]) [address], [address] [place] [address] MCHC (RBC) [Mass/Vol] 33.6 g/dL Normal 32-36 [facility] Comment on above: Performed By: #### B MP, CBCA #### [facility] ([id number]) [address], [address] [place] [address] MCV (RBC) [Entitic vol] 88 fL Normal 80-100 [facility] Comment on above: Performed By: #### B MP, CBCA #### [facility] ([id number]) [address], [address] [place] [address] Monocytes (Bld) [#/Vol] 0.4 10*3/uL Normal 0-0.9 [facility] Comment on above: Performed By: #### B MP, CBCA #### [facility] ([id number]) [address], [address] [place] [address] Monocytes/100 WBC (Bld) 3.3 % Normal [facility] Comment on above: Performed By: #### B MP, CBCA #### [facility] ([id number]) [address], [address] [place] [address] Neutrophils/100 WBC (Bld) 90.7 % Normal [facility] Comment on above: Performed By: #### B MP, CBCA #### [facility] ([id number]) [address], [address] [place] [address] Platelet mean volume (Bld) [Entitic vol] 6.4 fL Low 7-12 [facility] Comment on above: Performed By: #### B MP, CBCA #### [facility] ([id number]) [address], [address] [place] [address] Platelets (Bld) [#/Vol] 349 10*3/uL Normal 150-450 [facility] Comment on above: Performed By: #### B MP, CBCA #### [facility] ([id number]) [address] [place] [address] RBC COUNT 4.37 X10E12/L Normal 3.80-5.20 [facility] Comment on above: Performed By: #### B MP, CBCA #### [facility] ([id number]) [address], [address] [place] [address] WBC (Bld) [#/Vol] 13.8 10*3/uL High 4.0-11.0 [facility] Comment on above: Performed By: #### B MP, CBCA #### [facility] ([id number]) [address] [facility], [address] [place] [address] HCG ( test) Ql (U)o n 07-06-2023 Beta HCG ( test) Ql (U) Negative Normal NEG [facility] Comment on above: Performed By: #### 2 106-3 #### [facility] ([id number]) [address] [place] [address] Surgical Pathologyon 024 Surgical Pathology Normal [facility] Comment on above: Result Comment: [facility] [address] [place] [address] Surgical Pathology Consultation Patient Name:GISSEL DEL ROSARIO:1985 (Age: 38)Gender:FTaken:07/06/2023eported:07/10/2023hysician(s):Luís Andres M.D. ([phone])Copy To: Rec. #:[id number]: #[id number] Final Pathologic Diagnosis Bilateral fallopian tubes and [...] Out gp/07/10/2023Wagner Duncan MD Interpretation performed at [facility], [address] [place] [address], License number: [id number]. Clinical History Pelvic pain. Gross Description Received [...] each K 1 lymph node, serially sectioned (11,ss,F15-9995, m2) . /07/07/2023O Microscopic Findings Microscopic examination performed. Specimen(s) Received Bilateral tubes and ovaries and abdominal wall mass Fee Codes(s): 1; 338[address] CBC AND AUTO DIFFon 06-26-19 ABSOLUTE BASOPHIL 0.1 X10E9/L Normal 0.0-0.2 [facility] Comment on above: Performed By: #### C BCA #### [facility] ([id number]) [address], [address] [place] [address] ABSOLUTE NEUTROPHIL 6.4 X10E9/L Normal 1.5-6.6 [facility] Comment on above: Performed By: #### C BCA #### [facility] ([id number]) [address], [address] [place] [address] Basophils/100 WBC (Bld) 0.6 % Normal [facility] Comment on above: Performed By: #### C BCA #### [facility] ([id number]) [address] [place] [address] Eosinophils (Bld) [#/Vol] 0.1 10*3/uL Normal 0.0-0.4 [facility] Comment on above: Performed By: #### C BCA #### [facility] ([id number]) [address] [place] [address] Eosinophils/100 WBC (Bld) 0.7 % Normal [facility] Comment on above: Performed By: #### C BCA #### [facility] ([id number]) [address] [place] [address] Erythrocyte distribution width (RBC) [Ratio] 14.6 % Normal 11.5-15.0 [facility] Comment on above: Performed By: #### C BCA #### [facility] ([id number]) [address] [place] [address] Hematocrit (Bld) [Volume fraction] 42.5 % Normal 35-47 [facility] Comment on above: Performed By: #### C BCA #### [facility] ([id number]) [address] [place] [address] Hemoglobin (Bld) [Mass/Vol] 14.2 g/dL Normal 11.7-15.5 [facility] Comment on above: Performed By: #### C BCA #### [facility] ([id number]) [address], [address] [place] [address] Lymphocytes (Bld) [#/Vol] 3.7 10*3/uL High 1.0-3.5 [facility] Comment on above: Performed By: #### C BCA #### [facility] ([id number]) [address], [address] [place] [address] Lymphocytes/100 WBC (Bld) 33.4 % Normal [facility] Comment on above: Performed By: #### C BCA #### [facility] ([id number]) [address], [address] [place] [address] MCH (RBC) [Entitic mass] 29.3 pg Normal 27-34 [facility] Comment on above: Performed By: #### C BCA #### [facility] ([id number]) [address], [address] [place] [address] MCHC (RBC) [Mass/Vol] 33.4 g/dL Normal 32-36 [facility] Comment on above: Performed By: #### C BCA #### [facility] ([id number]) [address], [address] [place] [address] MCV (RBC) [Entitic vol] 88 fL Normal 80-100 [facility] Comment on above: Performed By: #### C BCA #### [facility] ([id number]) [address], [address] [place] [address] Monocytes (Bld) [#/Vol] 0.7 10*3/uL Normal 0-0.9 [facility] Comment on above: Performed By: #### C BCA #### [facility] ([id number]) [address], [address] [place] [address] Monocytes/100 WBC (Bld) 6.5 % Normal [facility] Comment on above: Performed By: #### C BCA #### [facility] ([id number]) [address], [address] [place] [address] Neutrophils/100 WBC (Bld) 58.8 % Normal [facility] Comment on above: Performed By: #### C BCA #### [facility] ([id number]) [address], [address] [place] [address] Platelet mean volume (Bld) [Entitic vol] 6.6 fL Low 7-12 [facility] Comment on above: Performed By: #### C BCA #### [facility] ([id number]) [address] [address] [place] [address] Platelets (Bld) [#/Vol] 367 10*3/uL Normal 150-450 [facility] Comment on above: Performed By: #### C BCA #### [facility] ([id number]) [address] [place] [address] RBC COUNT 4.84 X10E12/L Normal 3.80-5.20 [facility] Comment on above: Performed By: #### C BCA #### [facility] ([id number]) [address] [place] [address] WBC (Bld) [#/Vol] 11.0 10*3/uL Normal 4.0-11.0 [facility] Comment on above: Performed By: #### C BCA #### [facility] ([id number]) [address] [place] [address] MR PELVIS WO CONTon 06-16-19 MR PELVIS [...] Rodrigez MD on 06/16/2023 11:29 AM Normal [facility] CT ABD/PELVIS WO CONon 08-05 CT [...] JAYDEN MORGAN Date: 2022-08-05 16:55 Normal [facility] QUANTIFERON TB GOLD PLUSon 0 06-18-2022 QuantiFERON Criteria Comment Normal [facility] Comment on above: Result Comment: Gagandeep [...] test. Performed By: #### Q NTTB #### [facility] [address] [place] [address] Dr. Yovanny Alcantara QuantiFERON Incubation Incubation performed. Normal [facility] Comment on above: Performed By: #### Q NTTB #### [facility] [address] [place] [address] Dr. Yovanny Alcantara QuantiFERON Mitogen Value >10.00 Normal [facility] Comment on above: Performed By: #### Q NTTB #### [facility] [address] [place] [address] Dr. Yovanny Alcantara QuantiFERON Nil Value 0.03 IU/mL [facility] Comment on above: Performed By: #### Q NTTB #### [facility] [address] [place] [address] Dr. Yovanny Alcantara QuantiFERON TB1 Ag Value 0.05 IU/mL [facility] Comment on above: Performed By: #### Q NTTB #### [facility] [address] [place] [address] Dr. Yovanny Alcantara QuantiFERON TB2 Ag Value 0.06 IU/mL Normal [facility] Comment on above: Performed By: #### Q NTTB #### [facility] [address] [place] [address] Dr. Yovanny Alcantara QuantiFERON-TB Gold Plus Negative Normal Negative [facility] Comment on above: Result Comment: No r esponse to M tuberculosis antigens detected. Infection with M tuberculosis is unlikely, but high risk individuals should be considered for additional testing (ATS/IDSA/CDC Clinical Practice Guidelines, 2017). The reference range is an Antigen minus Nil result of <0.35 IU/mL. Chemiluminescence immunoassay methodology Performed By: #### Q NTTB #### [facility] [address] [place] [address] Dr. Yovanny Alcantara HEPATITIS B SURFACE ANTIBODY , QUANTon 06-17-2022 Hepatitis B Surf AB Quant 3.5 mIU/mL Critically low Immunity>9.9 [facility] Comment on above: Result Comment: Stat us of Immunity Anti-HBs Level Inconsistent with Immunity 0.0 - 9.9 Consistent with Immunity >9.9 Performed By: #### H EPBSRF ####[facility] [address] [place] [address]Dr. Yovanny Alcantara MMR IMMUNITYon 06-17-2022 Mumps Abs, IgG 17.4 AU/mL Normal Immune >10.9 [facility] Comment on above: Result Comment: Nega tive <9.0 Equivocal 9.0 - 10.9 Positive >10.9 A positive result generally indicates past exposure to Mumps virus or previous vaccination. Performed By: #### M MRIMMU #### [facility] [address] [place] [address] Dr. Yovanny Alcantara Rubella Antibodies, IgG 1.68 index Normal Immune >0.99 [facility] Comment on above: Result Comment: Non- immune <0.90 Equivocal 0.90 - 0.99 Immune >0.99 Performed By: #### M MRIMMU #### [facility] [address] [place] [address] Dr. Yovanny Alcantara Rubeola Ab, IgG 108.0 AU/mL Normal Immune >16.4 [facility] Comment on above: Result Comment: Nega tive <13.5 Equivocal 13.5 - 16.4 Positive >16.4 Presence of antibodies to Rubeola is presumptive evidence of immunity except when acute infection is suspected. Performed By: #### M MRIMMU #### [facility] [address] [place], [place] [address] Dr. Yovanny Alcantara VARICELLA IGG ABon 3 Varicella Zoster IgG 947 index Normal Immune >165 [facility] Comment on above: Result Comment: Nega tive <135 Equivocal 135 - 165 Positive >165 A positive result generally indicates exposure to the pathogen or administration of specific immunoglobulins, but it is not indication of active infection or stage of disease. Performed By: #### V ARCEL ####[facility] [address] [place], [place] [address]PrDr. Yovanny Alcantara Consent Formson 05-01-2022 Consent Forms [id number] Normal [facility] [place] CESIA DOP LEG RTon 12-31-19 22 [...] by: FRANTZ COVARRUBIAS Date: 2021-12-30 10:39 Normal [facility] CBC AUTO DIFFon 12-29-2021 BASO # 0.1 103/ul Normal 0.0-0.1 [facility] [facility] Comment on above: Performed By: #### C BC #### [facility] [address], [place] [address] Dr. Yovanny Alcantara Basophils/100 WBC (Bld) 0.7 % Normal 0.2-2.0 [facility] Comment on above: Performed By: #### C BC #### [facility] [address] [place] [address] Dr. Yovanny Alcantara EO # 0.2 103/ul Normal 0.0-0.7 [facility] Comment on above: Performed By: #### C BC #### [facility] [address] [place] [address] Dr. Yovanny Alcantara Eosinophils/100 WBC (Bld) 1.3 % Normal 0.9-7.0 [facility] Comment on above: Performed By: #### C BC #### [facility] [address] [place] [address] Dr. Yovanny Alcantara Erythrocyte distribution width (RBC) [Ratio] 13.9 % Normal 11.0-15.0 [facility] Comment on above: Performed By: #### C BC #### [facility] [address] [place] [address] Dr. Yovanny Alcantara Hematocrit (Bld) [Volume fraction] 43.7 % Normal 36.0-48.0 [facility] Comment on above: Performed By: #### C BC #### [facility] [address] [place] [address] Dr. Yovanny Alcantara Hemoglobin (Bld) [Mass/Vol] 13.8 g/dL Normal 12.0-16.0 [facility] Comment on above: Performed By: #### C BC #### [facility] [address] [place] [address] Dr. Yovanny Alcantara IG # 0.11 10e3/ul Critically high 0.00-0.03 [facility] Comment on above: Performed By: #### C BC #### [facility] [address] [place] [address] Dr. Yovanny Alcantara IG % 0.8 % Critically high 0.0-0.5 [facility] Comment on above: Performed By: #### C BC #### [facility] [address] [place] [address] Dr. Yovanny Alcantara LYMPH # 3.7 103/ul Normal 1.2-3.8 [facility] Comment on above: Performed By: #### C BC #### [facility] [address] [place] [address] Dr. Yovanny Alcantara Lymphocytes/100 WBC (Bld) 27.0 % Normal 20.5-60.0 [facility] Comment on above: Performed By: #### C BC #### [facility] [address] [place] [address] Dr. Yovanny Alcantara MANUAL DIFF REQ NO Normal [facility] Comment on above: Performed By: #### C BC #### [facility] [address] [place] [address] Dr. Yovanny Alcantara MCH (RBC) [Entitic mass] 26.7 pg Normal 26.7-34.0 [facility] Comment on above: Performed By: #### C BC #### [facility] [address] [place] [address] Dr. Yovanny Alcantara MCHC (RBC) [Mass/Vol] 31.6 g/dL Normal 29.9-35.2 [facility] Comment on above: Performed By: #### C BC #### [facility] [address] [place] [address] Dr. Yovanny Alcantara MCV (RBC) [Entitic vol] 84.5 fL Normal 81.0-99.0 [facility] Comment on above: Performed By: #### C BC #### [facility] [address] [place] [address] Dr. Yovanny Alcantara MONO # 0.9 103/ul Critically high 0.3-0.8 [facility] Comment on above: Performed By: #### C BC #### [facility] [address] [place] [address] Dr. Yovanny Alcantara Monocytes/100 WBC (Bld) 6.5 % Normal 1.7-12.0 [facility] Comment on above: Performed By: #### C BC #### [facility] [address] [place] [address] Dr. Yovanny Alcantara NEUT # 8.8 103/ul Critically high 1.4-6.5 [facility] Comment on above: Performed By: #### C BC #### [facility] [address] [address] [address] Yovanny Alcantara Neutrophils/100 WBC (Bld) 63.7 % Normal 43.0-75.0 [facility] Comment on above: Performed By: #### C BC #### [facility] [address] [address] [address] Yovanny Alcantara Platelet mean volume (Bld) [Entitic vol] 8.3 fL Critically low 9.5-13.5 [facility] Comment on above: Performed By: #### C BC #### [facility] [address] [address] [address] Yovanny Alcantara PLT 364 103/ul Normal 150-450 [facility] Comment on above: Performed By: #### C BC #### [facility] [address] [place] [address] Dr. Yovanny Alcantara RBC 5.17 106/ul Normal 4.20-5.40 [facility] Comment on above: Performed By: #### C BC #### [facility] [address] [address] [address] Yovanny Alcantara WBC 13.8 103/ul Critically high 4.0-11.0 [facility] Comment on above: Performed By: #### C BC #### [facility] [address] [place] [address] Dr. Yovanny Alcantara CTA CHEST WO W [...] AMINA WU Date: 2021-12-29 01:20 Normal [facility] D-DIMERon 12-29-2021 D-DIMER 0.68 mg/L FEU Critically high <=0.59 [facility] Comment on above: Performed By: #### P TT, PT, DDIM ####[facility] [id number] [address]Dr. Yovanny Alcantara D-DIMER COMMENTS SEE BELOW Normal [facility] Comment on above: Result Comment: Incr [...] Performed By: #### P TT, PT, DDIM ####[facility] [address] [address]Dr. Yovanny Alcantara ER URINE PROFILEon 2 Bilirubin Ql (U) Negative Normal NEGATIVE [facility] Comment on above: Performed By: #### E RUR #### [facility] [address] [address] [address] Yovanny Alcantara Clarity (U) CLEAR Normal CLEAR [facility] Comment on above: Performed By: #### E RUR #### [facility] [address] [address] [address] Yovanny Alcantara Color (U) YELLOW Normal YELLOW [facility] Comment on above: Performed By: #### E RUR #### [facility] [address] [address] [address] Yovanny LONG A micrscopic examination will be performed if indicated. Normal [facility] Comment on above: Performed By: #### E RUR #### [facility] [address] [place] [address] Dr. Yovanny Alcantara Glucose Ql (U) Negative Normal NEGATIVE [facility] Comment on above: Performed By: #### E RUR #### [facility] [address] [place] [address] Dr. Yovanny Alcantara Hemoglobin Ql (U) Negative Normal NEGATIVE [facility] Comment on above: Performed By: #### E RUR #### [facility] [address] [place] [address] Dr. Yovanny Alcantara Ketones Ql (U) Negative Normal NEGATIVE [facility] Comment on above: Performed By: #### E RUR #### [facility] [address] [place] [address] Dr. Yovanny Alcantara LEUKOCYTES Negative Normal NEGATIVE [facility] Comment on above: Performed By: #### E RUR #### [facility] [address] [place] [address] Dr. Yovanny Alcantara Nitrite Ql (U) Negative Normal NEGATIVE [facility] Comment on above: Performed By: #### E RUR #### [facility] [address] [place] [address] Dr. Yovanny Alcantara pH (U) 6.5 [pH] Normal 5-9 [facility] Comment on above: Performed By: #### E RUR #### [facility] [address] [place] [address] Dr. Yovanny Alcantara SPEC GRAVITY 1.020 Normal 1.005-<=1.025 [facility] Comment on above: Performed By: #### E RUR #### [facility] [address] [place] [address] Dr. Yovanny Alcantara UA PROTEIN Negative Normal NEGATIVE/ TRACE [facility] Comment on above: Performed By: #### E RUR #### [facility] [address] [address] [address] Yovanny Alcantara UR MICRO IND NOT INDICATED Normal [facility] Comment on above: Performed By: #### E RUR #### [facility] [address] [address] [address] Yovanny Alcantara Urobilinogen Qn (U) 0.2 {Eunice'U}/dL Normal 0.2 - 1.0 [facility] Comment on above: Performed By: #### E RUR #### [facility] [address] [address] [address] Yovanny Alcantara PROTIMEon 12-29-2021 INR Coag (PPP) [Relative time] 0.94 {INR} Normal [facility] Comment on above: Performed By: #### P TT, PT, DDIM ####[facility] [id number] [place], [place] [address]DrJessica Alcantara INR GUIDELINES SEE BELOW Normal [facility] Comment on above: Result Comment: JENNIFER RED INR: 2.0 - 3.0 CONDITIONS NOT LISTED BELOW 2.5 - 3.5 FOR PROSTHETIC HEART VALVE REPLACEMENT 2.5 - 3.5 RECURRENT THROMBOSIS Performed By: #### P TT, PT, DDIM ####[facility] [address] [address]DrJessica Alcantara PT Coag (PPP) [Time] 10.2 s Normal 9.0-11.6 [facility] Comment on above: Performed By: #### P TT, PT, DDIM ####[facility] [address] [address]Dr. Yovanny Alcantara PTTon 12-29-2021 aPTT Coag (Bld) [Time] 28.2 s Normal 22.3-36.2 [facility] Comment on above: Performed By: #### P TT, PT, DDIM ####[facility] [id number] [address]DrJessica Alcantara .QC Respiratory Panel 2.1 (B ioFire)on 11-19-2021 Internal Control-Resp Panel 2.1(BioFire) Pass [facility] Comment on above: Order Comment: Order ed by Discern. [[id number]] Performed By: #### 6 [id number] #### [facility] (DEFAULT) [address] [place] [address] Consent Formson 11-08-2021 Consent Forms [id number] .[id number] [facility] .QC Respiratory Panel 2.1 (B ioFire)on 11-02-2021 Internal Control-Resp Panel 2.1(BioFire) Pass [facility] Comment on above: Order Comment: Order ed by Discern. [[id number]] Performed By: #### [id number] #### [facility] (DEFAULT) [address] [place] [address] XR LSPINE 2_3 VIEWSon 2021 XR LSPINE [...] by: ASHLEY CARRANZA Date: 2021-09-28 07:54 Normal [facility] US PELVIS AND TRANSVAGon US PELVIS [...] authenticated by: BRIAN SINGER Date: 2021-08-20 09:02 [facility] Consent Formson 05-16-2021 Consent Forms [id number] .[id number] [facility] .QC Respiratory Panel 2.1 (B ioFire)on 05-13-2021 Internal Control-Resp Panel 2.1(BioFire) Pass [facility] Comment on above: Order Comment: Order ed by Mirian. [[id number]] Performed By: #### 6 [id number] #### [facility] (DEFAULT) [address] [place] [address] Vital Signs Date Time Vital Sign Value Performing Clinician Facility 12-23-2023 14:16-0400 Blood Pressure Location Bryant IGLESIAS [facility] 12-23-2023 14:16-0400 Diastolic blood pressure 104 mm[Hg] Bryant IGLESIAS [facility] 12-23-2023 14:16-0400 Heart rate 84 /min Bryant IGLESIAS [facility] 12-23-2023 14:16-0400 Respiratory rate 16 /min Bryant IGLESIAS [facility] 12-23-2023 14:16-0400 Systolic blood pressure 144 mm[Hg] Bryant IGLESIAS [facility] 08-05-2023 10:57-0400 Body height 157.5 cm Dayanara CORTES Work Phone: [employer] [facility] 08-05-2023 10:57-0400 Body mass index (BMI) [Ratio] 28.34 kg/m2 [facility] 08-05-2023 10:57-0400 Body temperature 97.9 [degF] [facility]ara Carroll [facility] 08-05-2023 10:57-0400 Body weight 70.31 kg Dayanara Carroll PA Work Phone: [facility] 08-05-2023 10:57-0400 Diastolic blood pressure 118 mm[Hg] Dayanara Carroll PA Work Phone: [facility] 08-05-2023 10:57-0400 Heart rate 115 /min Dayanara Carroll PA Work Phone: [facility] 08-05-2023 10:57-0400 Respiratory rate 18 /min Dayanara Carroll PA Work Phone: [facility] 08-05-2023 10:57-0400 SaO2% (BldA) [Mass fraction] 100 % Dayanara Carroll PA Work Phone: [facility] 08-05-2023 10:57-0400 Systolic blood pressure 149 mm[Hg] Dayanara Carroll PA Work Phone: [facility] 07-30-2023 14:43-0400 Body height 157.5 cm Basel Sharda PA Work Phone: [facility] 07-30-2023 14:43-0400 Body mass index (BMI) [Ratio] 29.26 kg/m2 Basel [facility]arda [facility] 07-30-2023 14:43-0400 Body weight 72.58 kg Basel Sharda PA Work Phone: [facility] 07-22-2023 08:52-0400 Body height 157.5 cm Dayanara Carroll PA Work Phone: [facility] 07-22-2023 08:52-0400 Body mass index (BMI) [Ratio] 29.26 kg/m2 Dayanara Carroll PA Work Phone: [facility] 07-22-2023 08:52-0400 Body weight 72.58 kg Dayanara Carroll PA Work Phone: [facility] 07-22-2023 08:52-0400 Diastolic blood pressure 95 mm[Hg] Dayanara Carroll PA Work Phone: [facility] 07-22-2023 08:52-0400 Heart rate 90 /min [facility] Carroll [facility] 07-22-2023 08:52-0400 Respiratory rate 20 /min Dayanara Carroll PA Work Phone: [facility] 07-22-2023 08:52-0400 SaO2% (BldA) [Mass fraction] 100 % Dayanara Carroll PA Work Phone: [facility] 07-22-2023 08:52-0400 Systolic blood pressure 122 mm[Hg] Dayanara Carroll PA [facility] 06-17-2023 08:25-0500 Body height 157.5 cm Luís Andres MD Work Phone: [facility] 06-17-2023 08:25-0500 Body mass index (BMI) [Ratio] 29.29 kg/m2 Luís Andres MD Work Phone: [facility] 06-17-2023 08:25-0500 Body temperature 98.6 [degF] Luís Andres MD Work Phone: [facility] 06-17-2023 08:25-0500 Body weight 72.67 kg Luís Andres MD Work Phone: [facility] 06-17-2023 08:25-0500 Diastolic blood pressure 84 mm[Hg] Luís Andres MD Work Phone: [facility] 06-17-2023 08:25-0500 Heart rate 95 /min Luís Andres MD Work Phone: [facility] 06-17-2023 08:25-0500 SaO2% (BldA) [Mass fraction] 90 % Luís Andres MD Work Phone: [facility] 06-17-2023 08:25-0500 Systolic blood pressure 128 mm[Hg] Luís Andres MD Work Phone: [facility] 06-11-2023 15:12-0500 Body height 157.5 cm Joseph Sotelo MD Work Phone: [facility] 06-11-2023 15:12-0500 Body mass index (BMI) [Ratio] 28.53 kg/m2 Joseph Sotelo MD Work Phone: [facility] 06-11-2023 15:12-0500 Body temperature 97.81 [degF] Joseph Sotelo MD Work Phone: [facility] 06-11-2023 15:12-0500 Body weight 70.76 kg Joseph Sotelo MD Work Phone: [facility] 06-11-2023 15:12-0500 Diastolic blood pressure 60 mm[Hg] Joseph Sotelo MD Work Phone: [facility] 06-11-2023 15:12-0500 Heart rate 101 /min Joseph Sotelo MD Work Phone: [facility] 06-11-2023 15:12-0500 SaO2% (BldA) [Mass fraction] 99 % Joseph Sotelo MD Work Phone: [facility] 06-11-2023 15:12-0500 Systolic blood pressure 100 mm[Hg] Joseph Sotelo MD Work Phone: [facility] 06-03-2023 08:26-0500 Diastolic blood pressure 64 mm[Hg] Luís Andres MD Work Phone: [facility] 06-03-2023 08:26-0500 Systolic blood pressure 106 mm[Hg] Luís Andres MD Work Phone: [facility] 06-03-2023 08:12-0500 Body height 157.5 cm Luís Andres MD Work Phone: [facility] 06-03-2023 08:12-0500 Body mass index (BMI) [Ratio] 29.26 kg/m2 Luís Andres MD Work Phone: [facility] 06-03-2023 08:12-0500 Body weight 72.58 kg Luís Andres MD Work Phone: [facility] 03-24-2023 10:40-0500 Body height 154.1 cm Vu Juarez MD MPH Work Phone: [facility] 03-24-2023 10:40-0500 Body mass index (BMI) [Ratio] 31.92 kg/m2 Vu Juarez MD MPH Work Phone: [facility] 03-24-2023 10:40-0500 Body temperature 97.3 [degF] Vu Juarez MD MPH Work Phone: [facility] 03-24-2023 10:40-0500 Body weight 75.8 kg Vu Juarez MD MPH Work Phone: [facility] 03-24-2023 10:40-0500 Diastolic blood pressure 107 mm[Hg] Vu Juarez MD MPH Work Phone: [facility] 03-24-2023 10:40-0500 Heart rate 85 /min Vu Juarez MD MPH Work Phone: [facility] 03-24-2023 10:40-0500 Respiratory rate 16 /min Vu Juarez MD MPH Work Phone: [facility] 03-24-2023 10:40-0500 SaO2% (BldA) [Mass fraction] 98 % Vu Juarez MD MPH Work Phone: [facility] 03-24-2023 10:40-0500 Systolic blood pressure 148 mm[Hg] Vu Juarez MD MPH Work Phone: [facility] 09-05-2022 10:45-0400 Body height 155.57 cm Hilary Staton Other [employer] Other 09-05-2022 10:45-0400 Body mass index (BMI) [Ratio] 33.73 kg/m2 Hilary Staton Other [employer] Other 09-05-2022 10:45-0400 Body temperature 97.3 [degF] Hilary Staton Other [employer] Other 09-05-2022 10:45-0400 Body weight 81.65 kg Hilary Staton Other [employer] Other 09-05-2022 10:45-0400 Diastolic blood pressure 98 mm[Hg] Hilary Staton Other [employer] Other 09-05-2022 10:45-0400 Respiratory rate 18 /min Hilary Staton Other [employer] Other 09-05-2022 10:45-0400 SaO2% (BldA) [Mass fraction] 99 % Hilary Staton Other [employer] Other 09-05-2022 10:45-0400 Systolic blood pressure 139 mm[Hg] Hilary Staton Other [employer] Other 07-04-2014 13:22-0500 Blood Pressure Location Bryant IGLESIAS [facility] 07-04-2014 13:22-0500 Body temperature 97.7 [degF] Bryant IGLESIAS [facility] 07-04-2014 13:22-0500 Diastolic blood pressure 79 mm[Hg] Bryant IGLESIAS [facility] 07-04-2014 13:22-0500 Heart rate 96 /min Bryant IGLESIAS [facility] 07-04-2014 13:22-0500 Mean blood pressure 90 mm[Hg] Bryant IGLESIAS [facility] 07-04-2014 13:22-0500 Respiratory rate 16 /min Bryant IGLESIAS [facility] 07-04-2014 13:22-0500 SaO2% (BldA) [Mass fraction] 97 % Bryant IGLESIAS [facility] 07-04-2014 13:22-0500 Systolic blood pressure 111 mm[Hg] Bryant IGLESIAS [facility] Encounters Encounter Date Encounter Type Care Provider Facility Start: 01-06-2024 End: 01-07-2024 ambulatory [facility] Start: 12-23-2023 End: 12-24-2023 ambulatory Bryant IGLESIAS Facility:[id number] Start: 12-23-2023 End: 12-23-2023 Patient encounter procedure Bryant IGLESIAS [facility] Start: 12-22-2023 ambulatory Bryant IGLESIAS Facility :[facility] Start: 09-25-2023 End: 09-26-2023 ambulatory [facility] Start: 08-05-2023 End: 08-05-2023 ambulatory [facility] Start: 08-05-2023 End: 08-05-2023 Postop follow up visit related to original px Dayanara CORTES Work Phone: [facility] Rec[facility] Comment on above: Encounter for postop erative care (Primary Dx); Menopausal symptoms Start: 08-03-2023 Telephone encounter Dayanara CORTES Work Phone: [facility] Start: 07-30-2023 End: 07-30-2023 Postop follow up visit related to original px [facility] Work Phone: [facility] Comment on above: Abdominal wall mass (Primary Dx) Start: 07-30-2023 End: 07-30-2023 ambulatory [facility] Start: 07-27-2023 Orders Only Dayanara CORTES Work Phone: [facility] Comment on above: Muscle spasms of bot h lower extremities (Primary Dx) Start: 07-22-2023 End: 07-22[facility]2023 [facility] Start: 07-22-2023 End: 07-22-2023 Postop follow up visit related to original px Dayanara CORTES Work Phone: Diana Recio [facility] Comment on above: Encounter for postop erative care (Primary Dx); Menopausal symptoms; Acute serous otitis media, recurrence not specified, unspecified laterality Start: 07-13-2023 Telephone encounter Sheyla Mendoza RN [facility] Start: 07-07-2023 End: 07-07-2023 Evaluation and management of inpatient ELSI PRABHJOT [facility] Start: 07-06-2023 End: 07-07-2023 Evaluation and management of inpatient LUÍS Nash [facility] Start: 06-29-2023 End: 06-29-2023 Admission to [facility] Phone Call Provider 2 Lashanda Horn [facility] Start: 06-29-2023 End: 06-29-2023 ambulatory JOSEPH SOTELO [facility] Start: 06-26-2023 End: 06-27-2023 ambulatory LUÍS Nash MCKENNA [facility] Start: 06-26-2023 Encounter for other preprocedural examination DAYANARA CARROLL [facility] Start: 06-25-2023 Orders Only Luís Andres MD Work Phone: [facility] Comment on above: Preop testing (Prima ry Dx) Start: 06-25-2023 Patient encounter status Luís Andres MD Work Phone: [facility] Start: 06-17-2023 End: 06-17-2023 ambulatory [facility] Start: 06-17-2023 End: 06-17-2023 Office outpatient visit 40 minutes Luís Andres MD Work Phone: [facility] Comment on above: Pelvic mass (Primary Dx) Start: 2023 End: 06-16-[address] 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; Pelvic pain Start: 05-22-2023 ambulatory JOSEPH SOTELO [facility] Start: 05-20-2023 Telephone encounter Sheyla Mendoza RN [facility] Start: 05-19-2023 End: 05-19-2023 ambulatory COMPA VALENZUELA Not Available Start: 05-06-2023 End: 05-06-2023 ambulatory JOSEPH SOTELO Not Available Start: 04-08-2023 End: 04-08-2023 Office outpatient new 45 minutes Jeremy Jang MD Work Phone: [facility] Comment on above: Endometrioma Start: 04-08-2023 End: 04-08-2023 ambulatory JOSEPH SOTELO Not Available Start: 03-24-2023 End: 03-24-20[facility] Start: 03-24-2023 End: 03-24-2023 Office outpatient new 60 minutes Vu Juarez MD MPH Work Phone: [facility] Comment on above: Endometrioma (Primar y Dx) Start: 09-05-2022 End: 09-05-2022 ambulatory Hilary Staton Other [employer] Other Start: 09-05-2022 Office outpatient ne w 20 minutes Hilary Staton [facility] Start: 08-05-2022 End: 08-06-2022 ambulatory DE LEON H TOMI Facility:[facility] Start: 06-16-2022 End: 06-16-2022 ambulatory AYDIN CAMACHO Facility:[facility] Start: 04-23-2022 End: 04-24-2022 ambulatory Kristopher Guerrero Facility:[facility] Start: 12-30-2021 End: 12-31-[address] JOSEPH SOTELO Facility:[facility] Start: 12-28-2021 End: 12-29-[address] JOSEPH SOTELO Facility:[facility] Start: 11-19-2021 End: 11-20-2021 ambulatory JOSEPH SOTELO Facility:[facility] Start: 11-02-2021 End: 11-02-2021 ambulatory JOSEPH SOTELO Facility:[facility] Start: 09-27-2021 End: 09-28-[address] JOSEPH SOTELO Facility:[facility] Start: 08-20-2021 End: 08-21-[address] JOSEPH SOTELO Facility: Start: 05-14-2021 End: 05-14-2021 ambulatory JOSEPH SOTELO Facility:[facility] Procedures Date Procedure Procedure Detail Performing Clinician Start: 07-22-2023 Follow-up visit Follow-up DAYANARA CARROLL Start: 07-06-2023 Adult depression screening assessment Sheyla Mendoza RN Start: 07-13-2014 Tonsillectomy Bryant IGLESIAS Colonoscopy Bryant IGLESIAS Comment on above: x2 Endometrial ablation Bryant IGLESIAS Esophagogastroduodenoscopy P soledad IGLESIAS Hysterectomy Bryant IGLESIAS Ligation of fallopian tube P soledad IGLESIAS Comment on above: essure procedure Plan of Treatment Date Care Activity Detail Author Start: 2036 Zoster Vaccines (1 of 2) Zoste r Vaccines (1 of 2) [facility] Start: 07-28-2027 DTaP,Tdap and Td Vaccines (6 - Td or Tdap) DTaP,Tdap and Td Vaccines (6 - Td or Tdap) [facility] Start: 07-28-2027 DTaP/Tdap/Td Vaccine s (6 - Td or Tdap) DTaP/Tdap/Td Vaccines (6 - Td or Tdap) [facility] Start: 08-04-2024 Adult BMI Screening Adult BMI Screen ing [facility] Start: 07-29-2024 Adult BMI Screening Adult BMI Screen ing [facility] Start: 07-29-2024 Tobacco Screening Tobacco Screening [facility] Start: 07-21-2024 Adult BMI Screening Adult BMI Screen ing [facility] Start: 07-21-2024 Tobacco Screening Tobacco Screening [facility] Start: 07-06-2024 Adult BMI Screening Adult BMI Screen ing [facility] Start: 07-05-2024 Depression Screening Depression Scre ening [facility] Start: 07-05-2024 Tobacco Screening Tobacco Screening [facility] Start: 06-29-2024 Tobacco Screening Tobacco Screening [facility] Start: 06-17-2024 Adult BMI Screening Adult BMI Screen ing [facility] Start: 06-17-2024 Tobacco Screening Tobacco Screening [facility] Start: 06-03-2024 Adult BMI Screening Adult BMI Screen ing [facility] Start: 06-03-2024 Tobacco Screening Tobacco Screening [facility] Start: 01-03-2024 Influenza vaccination Influenza Vacc ine [facility] Start: 08-10-2023 End: 08-10-2023 Patient encounter procedure 08/10/2023 2:45 PM EDT Office Visit [facility] [address] [place] [address] Joseph Sotelo MD [address] [place] [address] [facility] Start: 08-05-2023 End: 08-05-2023 Patient encounter procedure Diana Recio [facility] Oncology Start: 07-30-2023 End: 07-30-2023 Patient encounter procedure 07/30/2023 3:00 PM EDT Office Visit [facility] General Surgery [address] [place] [address] [facility] General Surgery Start: 07-22-2023 End: 07-22-2023 Patient encounter procedure 07/22/2023 9:00 AM EDT Office Visit Diana Recio [facility] - Medical Oncology [address] [place] [address] Dayanara Carroll PA [address] [place] [address] Diana Recio [facility] - Medical Oncology Start: 07-06-2023 End: 07-06-2023 Admission to same day surgery center [facility] - Surgery Comment on above: [facility] SALPINGO OOP HORECTOMY/ ABDOMINAL WALL RESECTION ENDOMETRIOSIS [facility] OOP HORECTOMY Start: 07-06-2023 End: 07-06-2023 DAVINCI SALPINGO OOPHORECTOMY [facility] SAL[facility] OOPHORECTOMY PELVIC PAIN 07/06/2023 10:00 AM EST [facility] Start: 07-06-2023 End: 07-06-2023 Laps fulg/exc ovary viscera/peritoneal surface [facility] FULGURATION ENDOMETRIAL IMPLANTS PELVIC PAIN 07/06/2023 10:00 AM EST [facility] Start: 07-06-2023 Subsequent hospital visit by physician 07/06/2023 10:00 AM EST Hospital Encounter [facility] Surgery [address] [place] [phone] Luís Andres MD [address] [place] [address], [address] [place] [address] [facility] Surgery Start: 07-06-2023 End: 07-06-2023 Unlisted laparoscopic px abd pertoneum & omentum [facility] RESECTION MASS PERITONEAL PELVIC PAIN 07/06/2023 10:00 AM EST [facility] Start: 06-29-2023 End: 06-29-2023 Admission to establishment 06/29/2023 12:45 PM EST Support Visit [facility] Pre-Admission Clinic On [address] [address] [facility]Admission [facility] On [facility] Start: 06-17-2023 End: 06-17-2023 Patient encounter procedure 06/17/2023 8:30 AM EST Office Visit [facility] [address] [place] [address] [address] [place] [address] Luís Andres MD [address] [place] [address], [address] [place] [address] [facility] Start: 06-11-2023 End: 06-11-2023 Patient encounter procedure 06/11/2023 3:15 PM EST Office Visit [facility] [address] [place] [address] Joseph Sotelo MD [address] [place] [address] Arrived [facility] Comment on above: Arrived Start: 06-03-2023 End: 06-03-2024 MR Pelvis WO contrast MR pelvis without contrast Imaging Routine Pelvic mass Endometriosis Expected: 06/03/2023, Expires: 06/03/2024 [facility] Work Phone: Comment on above: Expected: 06/03/2023 , Expires: 06/03/2024 Start: 06-03-2023 End: 06-03-2023 Patient encounter procedure 06/03/2023 8:00 AM EST Office Visit [facility] [address] [place] [address] [address] [place] [address] Luís [place] [address] [place] [address], [address] [place] [address] [facility] Start: 01-02-2023 COVID-19 Vaccine ( season) COVID-19 Vaccine ( season) [facility] Start: 01-02-2023 Influenza vaccination [facility] Start: 04-26-2021 COVID-19 Vaccine (4 - Moderna series) COVID-19 Vaccine (4 - Moderna series) [facility] Start: 12-24-2017 Varicella vaccination Varicell a Vaccines (2 of 2 - 13+ 2-dose series) [facility] Start: 2007 Screening for malign ant neoplasm of cervix [facility] Start: 2004 Adult BMI Follow Up Plan Adult BMI Follow Up Plan [facility] Start: 2004 Adult BMI Screening Adult BMI Screen ing [facility] Start: 2004 Diabetes mellitus screening Diabetes Screening [facility] Start: 2004 Hepatitis C screening Hepatitis C Sc reening [facility] Start: 1998 Depression Screening Depression Scre ening [facility] Start: 1998 Tobacco Screening Tobacco Screening [facility] Start: 1986 HIV screening HIV Screening [facility] Start: 1986 Lipid panel Lipid Panel [facility] Start: 1986 Yearly Adult Physical Yearly Adult P hysical [facility] End: 06-25-2024 CBC W Auto Differential panel - Blood CBC with auto diff Lab Routine Preop testing 1 Occurrences starting 06/25/2023 until 06/25/2024 [facility] Work Phone: Comment on above: 1 Occurrences starti ng 06/25/2023 until 06/25/2024 Immunizations Immunization Date Immunization Notes Care Provider Fa sarah 02-18-2021 influenza, injectabl e, quadrivalent, preservative free Sheyla Mendoza RN [facility] 02-18-2021 influenza virus vaccine, unspecified formulation Vu Juarez MD MPH Work Phone: [facility] Work Phone: 01-31-2020 influenza, injectabl e, quadrivalent, preservative free Sheyla Mendoza RN [facility] 01-31-2020 influenza virus vaccine, unspecified formulation Sheyla Mendoza RN [facility] 01-29-2020 influenza, injectabl e, quadrivalent, preservative free Sheyla Mendoza RN [facility] 01-13-2019 influenza, injectabl e, quadrivalent, preservative free Sheyla Mendoza RN [facility] 01-01-2018 influenza, injectabl e, quadrivalent, preservative free Sheyla Mendoza RN [facility] 11-26-2017 hepatitis B vaccine, adult dosage Sheyla Mendoza RN [facility] 11-26-2017 varicella virus vaccine Vu Juarez MD MPH Work Phone: [facility] Work Phone: 07-27-2017 hepatitis B vaccine, adult dosage Sheyla Mendoza RN [facility] 07-27-2017 tetanus toxoid, reduced diphtheria toxoid, and acellular pertussis vaccine, adsorbed Sheyla Mendoza RN [facility] 01-11-2014 influenza, seasonal, injectable, preservative free Hilary Staton Other [employer] Other 12-28-1998 hepatitis B vaccine, pediatric or pediatric/adolescent dosage Sheyla Mendoza RN [facility] 12-28-1998 measles, mumps and rubella virus vaccine Sheyla Mendoza RN [facility] 12-28-1998 TD(adult) unspecifie d formulation Sheyla Mendoza RN [facility] 07-01-1991 diphtheria, tetanus toxoids and pertussis vaccine Sheyla Mendoza RN [facility] 07-01-1991 trivalent poliovirus vaccine, live, oral Sheyla Mendoza RN [facility] 01-30-1989 diphtheria, tetanus toxoids and pertussis vaccine Sheyla Mendoza RN [facility] 01-30-1989 measles, mumps and rubella virus vaccine Sheyla Mendoza RN [facility] 1986 diphtheria, tetanus toxoids and pertussis vaccine Sheyla Mendoza RN [facility] 1986 trivalent poliovirus vaccine, live, oral Sheyla Mendoza RN [facility] 1986 diphtheria, tetanus toxoids and pertussis vaccine Sheyla Mendoza RN [facility] 1986 trivalent poliovirus vaccine, live, oral Sheyla Mendoza RN [facility] Payers Date Payer Category Payer Unknown [id number] 2017 [id number] 2014 Unknown [id number] 1986 Unknown [id number] 2.16.84 0.1.049881.3.579.2.593 1986 Unknown [id number] 2.16.84 0.1.980533.3.579.2.593 1986 Unknown [id number] 2.16.84 0.1.818408.3.579.2.593 1986 Unknown [id number] 2.16.84 0.1.238781.3.579.2.593 1986 Unknown [id number] 2.16.84 0.1.066114.3.579.2.593 1986 Unknown [id number] 2.16.8 40.1.621802.3.579.2.1245 1986 Unknown [id number] 2.16.84 0.1.171020.3.579.2.1286 1986 Unknown [id number] 2.16.84 0.1.486327.3.579.2.1286 1986 Unknown [id number] 2.16.84 0.1.162441.3.579.2.1259 1986 Unknown [id number] 2.16.84 0.1.953196.3.579.2.1259 1986 Unknown [id number] 2.16.840 .1.941100.3.579.2.9 1986 Unknown [id number] 2.16.840 .1.450770.3.579.2.1259 1986 Unknown [id number] 2.16.8 40.1.658759.3.579.2.6 1986 Unknown [id number] 2.16.8 40.1.758866.3.579.2.6 1986 Unknown [id number] 2.16.8 40.1.141625.3.579.2.1285 1986 Unknown [id number] 2.16.8 40.1.985347.3.579.2.128 1986 Unknown [id number] 2.16.8 40.1.527462.3.579.2.1285 1986 Unknown [id number] 2.16.8 40.1.393331.3.579.2.1285 1986 Unknown [id number] 2.16.8 40.1.819722.3.579.2.1285 1986 Unknown [id number] 2.16.8 40.1.960602.3.579.2.1286 1986 Unknown [id number] 2.16.8 40.1.953573.3.579.2.1286 1986 Unknown [id number] 2.16.8 40.1.441927.3.579.2.1286 1986 Unknown [id number] 2.16.8 40.1.683463.3.579.2.1286 1986 Unknown [id number] 2.16.8 40.1.386046.3.579.2.1286 1986 Unknown [id number] 2.16.8 40.1.999032.3.579.2.1286 1986 Unknown [id number] 2.16.8 40.1.213156.3.579.2.1286 1986 Unknown [id number] 2.16.8 40.1.198549.3.579.2.727 1986 Unknown [id number] 2.16.8 40.1.191789.3.579.2.727 1986 Unknown [id number] 2.16.8 40.1.560356.3.579.2.727 1986 Unknown [id number] 2.16.8 40.1.396802.3.579.2.727 1959 Self-pay 1959 Unknown [id number] Unknown [id number] 2.16.84 0.1.517824.3.579.2.593 Social History Date Type Detail Facility Unknown if ever smoked [facility] Other Start: 05-30-2020 End: 04-08-2023 [facility] Work Phone: Start: 1986 Sex Assigned At Not on file [facility] Work Phone: Start: 03-14-2023 End: 04-08-2023 Exposure to SARS-CoV-2 (event) Not sure [facility] Start: 04-08-2023 End: 12-23-2023 Tobacco smoking status NHIS Never smoked tobacco [facility] Start: 04-08-2023 End: 06-29-2023 Tobacco use and exposure Smokeless tobacco non-user [facility] Work Phone: Start: 04-08-2023 Alcohol intake Ex-drinker (finding) [facility] Work Phone: Start: 05-30-2020 End: 04-08-2023 History of Social function [facility] Start: 11-26-2018 End: 07-30-2023 Alcohol intake Current drink[facility] ([facility] Inst[facility] Start: 11-02-2017 Alcohol Comment socially [facility] Start: 05-19-2023 End: 06-11-2023 [...] History of tobacco use Passive smoker [facility] Start: 06-29-2023 Alcohol Comment 0-1 per month [employer] [facility] Medical Equipment Procedure Code Equipment Code Equipment Origin al Text Equipment Identifier Dates Mesh [id number] Flt Vcl Abs Wvn Srg Hrn Repr - [id number] Start: 07-06-2023 Goals Date Patient Goal Desired Activity /State Personal health goal Comment on above: Formatting of this n ote might be different from the original. Evaluation of progress towards goal: Patient plans to discharge home with self care and with assistance from family. Functional Status Date Assessment Result Facility 12-23-2023 Functional Status N/A [facility] Clinical Notes 09-28-2021 to 12-23-2023 SEBASTIAN Wang [...] Follow these instructions at home: Medicines Take upqj-xfv-tsawpsd and prescription medicines only as told by [...] prevent or treat constipation, such as: ?Take opkr-jld-dpkylbn or prescription medicines. ?Eat foods that are [...] provider. Document Revised: 08/27/2022 Document Reviewed: 12/23/2021 [employer] Patient Education 2022 [employer]. 12/23/2023 14:47:10 Laser Therapy for Kidney Stones [...] including vitamins, herbs, eye drops, creams, and rndm-edb-cigbfmv medicines. Any problems you or family members [...] provider tells you to take them. ?Taking ljes-ipl-cnbyuyi medicines, vitamins, herbs, and supplements. Eating and [...] provider. Document Revised: 08/27/2022 Document Reviewed: 12/23/2021 [employer] Patient Education 2022 [employer]. Follow Up Care 12/22/2023 08:45:54 With:VANESSA LYLES, Bryant Carlos, JAMIL Address: [facility] [address], [place] [address]- [phone] When: Unknown Comments:sched L URS/laser litho/possible stent plaement [facility] 12-23-2023 Note Patient Education Nephrology Laser Therapy [...] these instructions at home: Medicines ? Take vhzi-qok-udqrtev and prescription medicines only as told by [...] or treat constipation, such as: ? Take wimn-kkk-biykeqf or prescription medicines. ? Eat foods that [...] provider. Document Revised: 08/27/2022 Document Reviewed: 12/23/2021 [employer] Patient Education ? 2022 [employer] Laser Therapy for Kidney Stones Laser therapy [...] including vitamins, herbs, eye drops, creams, and wtfq-vsu-zzmcohj medicines. ? Any problems you or family [...] by a f (more content not included)... [facility] 08-05-2023 History of Presen t illness Narrative Subjective: Gissel Del Rosario female who is 38 y.o. female who is s/p a MXO-FXY-wakmc of adhesions, endometriosis resection on 07/06/23. Pathology: [...] 07/06/2023 Performed by Luís Andres MD at [facility] LYSIS OF ADHESIONS X 60 MIN N/A 07/06/2023 Performed by Luís Andres MD at [facility] RESECTION MASS PERITONEAL/ SOFT TISSUE MASS REMOVAL POSTERIOR RECTUS SHEATH/EXCISIONAL DEBRIDMENT N/A 07/06/2023 Performed by Abundio Flynn MD at [facility] SALPINGO OOPHORECTOMY Bilateral 07/06/2023 Performed by Luís Andres MD at [facility] ENDOMETRIAL ABLATION 2013 ESOPHAGOGASTRODUODENOSCOPY 2010 HYSTERECTOMY 04/16/2015 partial LITHOTRIPSY 2012 TONSILLECTOMY 2012 Past Medical History: Diagnosis Date Anxiety Dental disease one chipped tooth, right upper very back of mouth Depression Dizziness Endometriosis GERD (gastroesophageal reflux disease) Hypertension Kidney stones Pelvic pain PONV (postoperative nausea and vomiting) Pulmonary embolism (CMS-HCC) 11/29/2010 during Sciatica Sinus tachycardia Visual impairment [...] endometriosis. Re-evaluate with our team or benign regional commercial sales manager in 6 months. May consider transdermal [...] *This note was completed using a voice florist's decorator system. Every effort was made to ensure accuracy. However, inadvertent computerized florist's decorator errors may be present. .Total time spent [...] Wang 08/05/23 1126 documented in this encounter [facility] 08-03-2023 Miscellaneous Notes Spoke with patient to move up her appt on 08/05/23 to 11am, patient confirmed. documented in this encounter [facility] 08-03-2023 Telephone encounter Note Spoke with patient to move up her appt on 08/05/23 to 11am, patient confirmed. [facility] 07-30-2023 History of Presen t illness Narrative [...] questions or concerns 5) follow-up with six-month [facility] Sharda HILL [facility] General Surgery [address] [place] [id number] SEBASTIAN Romero 07/30/23 2259 documented in this encounter [facility] 07-22-2023 History of Presen t illness Narrative Subjective: Gissel Del Rosario female who is 38 y.o. female who is s/p a MYR-LCM-kwtig of adhesions, endometriosis resection on 07/06/23. Pathology: [...] 07/06/2023 Performed by Luís Andres MD at [facility] LYSIS OF ADHESIONS X 60 MIN N/A 07/06/2023 Performed by Luís Andres MD at [facility] RESECTION MASS PERITONEAL/ SOFT TISSUE MASS REMOVAL POSTERIOR RECTUS SHEATH/EXCISIONAL DEBRIDMENT N/A 07/06/2023 Performed by Abundio Flynn MD at [facility] Bilateral 07/06/2023 Performed by Luís Andres MD at [facility] ENDOMETRIAL ABLATION 2014 ESOPHAGOGASTRODUODENOSCOPY 2010 HYSTERECTOMY 04/16/2015 partial LITHOTRIPSY 2013 TONSILLECTOMY 2012 Past Medical History: Diagnosis Date Anxiety Dental disease one chipped tooth, right upper very back of mouth Depression Dizziness Endometriosis GERD (gastroesophageal reflux disease) Hypertension Kidney stones Pelvic pain PONV (postoperative nausea and vomiting) Pulmonary embolism ([facility]-HCC) 11/29/2010 during Sciatica Sinus tachycardia Visual impairment [...] endometriosis. Re-evaluate with our team or benign regional commercial sales manager in 6 months. May consider transdermal [...] *This note was completed using a voice florist's decorator system. Every effort was made to ensure accuracy. However, inadvertent computerized florist's decorator errors may be present. .Total time spent [...] Wang 07/22/23 0933 documented in this encounter [facility] 07-13-2023 Miscellaneous Notes Patient called in with [...] scheduled for 07/21. documented in this encounter [facility] 07-13-2023 Telephone encounter Note Patient called in [...] questions. Post op appt scheduled for 07/21. [facility] 06-29-2023 Instructions Formatting of th is note might be different from the original. Your surgery/procedure is scheduled at [facility] on 07/06/2023 at 10 am Arrival Time 8 am [facility] Address: [address] [place] [address] in [address]1 Parking lot located on [facility]. Report to the Entrance B. Check in at the information desk the surgery. The waiting room located on the second floor. If you have any questions prior to surgery, please call Pre-Admission Clinic at [phone] between 7:30 am and 4:30 pm Thursday through Thursday. If you have questions the morning of surgery, please call the Pre-op Department at [phone]. Notify your SURGEON if you develop any [...] would like to schedule therapy at a [facility] Re[facility] facility, please call [address] [place] [address] ([phone]). Do not use lotions, creams, powders, perfume, make up, cologne or after-shaves day of surgery. Remove ALL jewelry including wedding rings, body piercings,hair extensions that contain metal, nail south sudanese, make-up, and contact lens. You may brush [...] RIGHTS AND RESPONSIBILITIES As a patient at [facility], you have the right to: Receive medical care and be informed of who is taking care of you Be treated with dignity and respect Have a family member/medical claims representative of choice and your physician notified of your admission Receive information and actively participate in decisions about your care and treatment Refuse care, treatment and services Decide who may provide your support and speak for you Access methodist and spiritual services Participate in ethical issues [...] of hospital charges and payment methods Patient/patient medical claims representative responsibilities are to: Provide information about health status to facilitate care, treatment and services Follow the treatment, plan, keep appointments and speak up when you do not understand the plan Respect the rights of other patients and healthcare personnel Follow organizational rules and regulations that support quality care and a safe environment Fulfill financial obligations as promptly as possible [facility] 06-29-2023 Miscellaneous Notes Your surgery/procedure is scheduled at [facility] on 07/06/2023 at 10 am Arrival Time 8 am [facility] Address: [address] [place] [address]. [address] Parking lot located on [facility]. Report to the Entrance B. Check in at the information desk the surgery. The waiting room located on the second floor. If you have any questions prior to surgery, please call Pre-Admission Clinic at [phone] between 7:30 am and 4:30 pm Thursday through Thursday. If you have questions the morning of surgery, please call the Pre-op Department at [phone]. Notify your SURGEON if you develop any [...] would like to schedule therapy at a [facility] facility, please call [phone] ([phone]). Do not use lotions, creams, powders, perfume, make up, cologne or after-shaves day of surgery. Remove ALL jewelry including wedding rings, body piercings,hair extensions that contain metal, nail south sudanese, make-up, and contact lens. You may brush [...] RIGHTS AND RESPONSIBILITIES As a patient at [facility], you have the right to: Receive medical care and be informed of who is taking care of you Be treated with dignity and respect Have a family member/medical claims representative of choice and your physician notified of your admission Receive information and actively participate in decisions about your care and treatment Refuse care, treatment and services Decide who may provide your support and speak for you Access methodist and spiritual services Participate in ethical issues [...] of hospital charges and payment methods Patient/patient medical claims representative responsibilities are to: Provide information about [...] promptly as possible documented in this encounter [facility] 06-17-2023 History of Presen t illness [...] personal or family history of GI or dispensary clerk malignancies. We reviewed her imaging as well [...] procedures Referring and communicating with other health ambulatory care coordinator (not separately reported) Documenting clinical information in the electronic or other health record Luís Andres MD documented in this encounter [facility] 06-11-2023 History of Presen t illness Narrative Associated Problem(s): Sinus tachycardia Symptoms stable with toprol and continue. 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 Associated Problem(s): Benign essential hypertension (CMS/HCC) BP remains low and stop zestoretic. Start lisinopril daily and monitor BP. Subjective Patient ID: Gissel Del Rosario is a 37 y.o. female who presents for Follow-up (1m). Follow up HTN, tachycardia, and abdominal mass. Patient continues to have abdominal pain. Seen by dispensary clerk and felt mass related to endometriosis in [...] scar Continued pain and follow up with dispensary clerk for surgery. documented in this encounter [facility] 06-03-2023 History of Presen t illness [...] personal or family history of GI or dispensary clerk malignancies. We reviewed her imaging as well [...] procedures Referring and communicating with other health ambulatory care coordinator (not separately reported) Documenting clinical information in the electronic or other health record Luís Andres MD documented in this encounter [facility] 05-20-2023 Miscellaneous Notes Left VM to schedule ELEPHANT KEEPER appointment with dispensary clerk onc. Requested US and CT images be pushed via PACS from [employer]. documented in this encounter [facility] 05-20-2023 Telephone encounter Note Left VM to schedule ELEPHANT KEEPER appointment with dispensary clerk onc. Requested US and CT images be pushed via PACS from [employer]. [facility] 04-08-2023 History of Presen t illness [...] was negative but is to see a unix systems administrator to further work this up as well. Jeremy Jang MD documented in this encounter [facility] Work Phone: 03-24-2023 History of Presen [...] hernia specialists. --I will discuss with her regional commercial sales manager the value of abdominal exploration for [...] MPH @[email or web address]@ @[email or web address]@ documented in this encounter [facility] Work Phone: 09-05-2022 Evaluation note Encounter [...] understanding and is agreeable with treatment plan. [employer] Other [id number] NotePROCEDURE: XR PELVIS W_OBL MIN 3 VIEWS COMPARISON: HISTORY: Disorder of sacrum FINDINGS: BONES:No fracture, acute abnormality, or significant arthropathy. SOFT TISSUES:Negative. No visible soft tissue swelling. EFFUSION:None visible. OTHER: Negative. IMPRESSION: No acute abnormality Electronically authenticated by: ASHLEY CARRANZA Date: 2021-09-28 07:58[facility]05-28-2022 NotePROCEDURE: XR TIB_FIB LT 2V COMPARISON: 07/17/2020 HISTORY: Pain in left leg FINDINGS: BONES:No acute fracture or dislocation. Stable sclerosis along the distal tibia. Enthesopathic spurring plantar calcaneus SOFT TISSUES:Negative. No visible soft tissue swelling. EFFUSION:None visible. OTHER: Negative. IMPRESSION: Stable exam, no interval change Electronically authenticated by: ASHLEY CARRANZA Date: 2021-09-28 07:56[facility] No data available for this section [facility] Evaluation note* Diagnosis Endometrioma- Primary Endometriosis, site unspecified documented in this encounter [facility] Work Phone: Evaluation note* Diagnosis Endometrioma Endometriosis, site unspecified documented in this encounter [facility] Work Phone: Evaluation note* Diagnosis Pelvic mass- Primary Abdominal or pelvic swelling, mass or lump, unspecified site Endometriosis Endometriosis, site unspecified 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 Endometriosis in scar of skin Pelvic pain [facility] Diagnosis Benign essential hypertension (CMS/HCC)- Primary Essential hypertension, benign Sinus tachycardia Other specified cardiac dysrhythmias 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 Endometriosis in scar of skin [facility] Pelvic [facility]- Primary Abdominal or pelvic swelling, mass or lump, unspecified site [facility] Diagnosis Preop testing- Primary Unspecified pre-operative examination [facility] Diagnosis Encounter for postoperative care- Primary Menopausal symptoms Symptomatic menopausal or female climacteric states Acute serous otitis media, recurrence not specified, unspecified laterality [facility] Diagnosis Muscle spasms of both lower extremities- Primary [facility] Diagnosis Abdominal wall mass- Primary Abdominal or pelvic swelling, mass or lump, unspecified site [facility] Diagnosis Encounter for postoperative [...] History child x3 Hospitalization History demise x1 [employer] Other InstructionsNot on filedocumented in this encounter [facility]Not on filedocumented in this encounter [facility] [...] available for this section [facility] Reason for referral (narrative)* Consultation (Routine) - Pending Review Specialty Diagnoses / Procedures Referred By Frankie salmon Referred To Contact General Surgery Diagnoses Pelvic mass Luís Andres MD [address] [place] [address] Abundio Flynn MD [address] [place] [address] Referral ID Status Reason Start Date Expiration Date Visits Requested Visits Authorized [id number] Pending Review Specialty Services Required 06/17/2023 06/16/2024 1 1 [facility] Summary Purpose Family History No Family History Records FoundNo Family History Records FoundNo Family History Records FoundNo Family History Records FoundNo Family History Records FoundNo Family History Records FoundNo Family History Records Found No data available for this section No Family History Records FoundNo Family History Records Found Advance Directives No Advanced Directives Records FoundLatest Code Status on File Code Status Date Activated Date Inactivated Comments Full Code 07/06/2023 3:39 PM 07/07/2023 1:17 PM Reason for Referral Specialty Diagnoses / Procedures Referred By Frankie salmon Referred To Contact Radiology Diagnoses Pelvic mass Endometriosis Procedures MR pelvis without contrast Luís Andres MD [address] [place] [address] Referral ID Status Reason Start Date Expiration Date V isits Requested Visits Authorized [id number] Pending Review 06/03/2023 06/02/2024 1 1 Additional Source Comments INFORMATION SOURCE (unrecogn ized section and content) DATE CREATED AUTHOR 05/01/2022 [facility] DATE CREATED AUTHOR AUTHOR'S ORGANIZ ATION 08/10/2022 [facility] DATE CREATED AUTHOR AUTHOR'S ORGANIZ ATION 03/26/2023 [facility] DATE CREATED AUTHOR AUTHOR'S ORGANIZ ATION 05/24/2023 [facility] DATE CREATED AUTHOR AUTHOR'S ORGANIZ ATION 06/13/2023 [facility] DATE CREATED AUTHOR AUTHOR'S ORGANIZ ATION 06/18/2023 [facility] DATE CREATED AUTHOR AUTHOR'S ORGANIZ ATION 09/27/2023 [facility] DATE CREATED AUTHOR AUTHOR'S ORGANIZ ATION 01/07/2024 [facility] DATE CREATED AUTHOR AUTHOR'S ORGANIZ ATION 01/14/2024 [facility] REASON FOR VISIT (unrecogniz ed section and content) Reason Comments New Patient Visit Reason Comments Endometriosis Specialty Diagnoses / Procedures Referred By Contchacorta t Referred To Contact General Surgery Diagnoses Endometrioma Vu Juarez MD [facility] [id number] [facility] [facility] Department of Surgery-[place] [address] [place] [id number] [facility] Department [place] [address] Referral ID Status Reason Start Date Expiration Date Visits Requested Visits Authorized [id number] Authorized Specialty Services Required 3 03/30/2024 1 [...] Care Teams (unrecognized sec tion and content) [employer] Relationship Specialty Start Date End Date Joseph Sotelo MD PCP - General Family Medicine 03/18/23 [employer] Relationship Specialty Start Date End Date Joseph Sotelo MD [address] [place] [facility] [address] PCP - General Family Medicine 04/02/23 [employer] Relationship Specialty Start Date End Date Joseph Sotelo MD [address] [place] [facility] [place] [address] PCP - General 01/29/17 [employer] Relationship Specialty Start Date End Date Joseph Sotelo MD [address] [place] [facility] [place] [address] PCP - General 01/29/17 [employer] Relationship Specialty Start Date End Date Joseph Sotelo MD PCP - General Cardiology 10/15/22 [employer] Relationship Specialty Start Date End Date Joseph Sotelo MD PCP - General Cardiology 10/15/22 Food [employer] Relationship Specialty Start Date End Date Joseph Sotelo MD [address] [place] [address] PCP - General 01/29/17 [employer] Relationship Specialty Start Date End Date Joseph Sotelo MD [address] [place] [facility] [place] [address] PCP - General 01/29/17 [employer] Relationship Specialty Start Date End Date Joseph Sotelo MD [address] [place] [place] [address] PCP - General 01/29/17 [employer] Relationship Specialty Start Date End Date Joseph Sotelo MD [address] [place] [facility] [place] [address] PCP General 01/29/17 Food As[employer] Relationship Specialty Start Date End Date Joseph Sotelo MD [address] [place] [place] [address] PCP - General 01/29/17 [employer] Relationship Specialty Start Date End Date Joseph Sotelo MD [address] [place] [facility] [place] [address] PCP - General 01/29/17 [employer] Relationship Specialty Start Date End Date Joseph Sotelo MD [address] [place] [place] [address] PCP - General 01/29/17 [employer] Relationship Specialty Start Date End Date Joseph Sotelo MD [address] [place] [facility] [place] [address] PCP General 01/29/17 [employer] Relationship Specialty Start Date End Date Joseph Sotelo MD [address] [place] [address] PCP General 01/29/17 FOR RECORDS PERTAINING TO PATIENTS [...] BE BASED ON THE PRIMARY CLINICAL RECORDS. [facility]. provides no warranty or guarantee of the accuracy or completeness of information in this document.
--- OUTSIDE RECORDS SUMMARY | 2024-03-05 07:20 | XMS_ITS | CCD ---
Author Organization [facility] Care Team Providers Care Finance Clerk Name Role Phone JOSEPH SOTELO Primary Care [...] Unavailable FAWADITI, SHAIKH Neema Consulting Unavailable TOMI, DE LEON H Admitting Unavailable NADERER, DR JOSEPH Carey [...] Unavailable NICHOLE, DR ALLIE Carlos Admitting Unavailable SATISH, FRANTZ Consulting Unavailable ASHLEIGH, DR JOSEPH Carey Primary [...] Provider Joseph Sotelo MD Primary Care Provider [phone] ASHLEIGH, JOSEPH Referring Unavailable NADERER, JOSEPH Primary Care Unavailable NADERER, JOSEPH Referring Unavailable NADERER, JOSEPH Primary Care Unavailable NADERER, JOSEPH Attending Unavailable COMPA VALENZUELA Attending Unavailable NADERER, JOSEPH Attending Unavailable NADERER, JOSEPH Attending Unavailable NadereJoseph carlos MD Primary Care Provider [phone] LUÍS ANDRES Attending Unavailable NADERER, JOSEPH Referring [...] Referring Unavailable NADERER, JOSEPH Primary Care Unavailable ABUNDIO FLYNN Attending Unavailable [...] tablet by mouth every six hours HYDROcodone-acetaminophen ([place]) 5-325 MG tablet Take 1 tablet by [...] Active docusate sodium 50 mg / sennosides, halfway 8.6 mg oral tablet (6 sources) Start: [...] mg/3 mL) pen injector polyethylene glycol 3350 97262 mg powder for oral solution (15 sources) [...] [facility] [address], [place] [address] [phone] Medications What How Much When Instructions Unchanged [...] these instructions at home: Medicines ? Take iyvr-wps-xgtbizn and prescription medicines only as told by your health care provider. ? If you were prescribed an antibiotic medicine, take it as told by your health care provider. Do not stop taking the antibiotic even if you start to feel better. ? As (more content not included)... Normal [facility] Urology Office/Clinic Noteon 12-23-2023 Urology Office/Clinic Note Urology Office/Clinic Note Chief Complaint NEW PT. hospital follow up HPI Staff New Pt. Pt was seen at [facility] due to abdominal pain. KUB 12/21/23, [...] female new pt here for f/u to [facility] ER visit due to kidney stones.. 1. Kidney stones (N20.0: Calculus of kidney) Hx of kidney stones, never required intervention. Saw Dr. Briones, urologist in [place], in the past. CT AP wo con [...] When Contact Information VANESSA LYLES, Bryant Carlos, COUNT INCLUDES THE [facility] [address] [place] [address] [phone] Additional Instructions: sched L URS/laser litho/possible stent [...] Left ureteral (more content not included)... Normal [facility] Comment on above: Result Comment: Elec tronically [...] Roberson MD on 09/26/2023 9:30 AM Normal [facility] XR HIP LT 2-3 VIEWS [...] Menchaca MD on 09/26/2023 6:59 PM Normal [facility] BASIC METABOLIC PANLon 07-05 Anion gap [Moles/Vol] 7 mmol/L Normal 5-15 [facility] Comment on above: Performed By: #### B ZAIN, CBCA #### [facility] ([id number]) [address], [address] [place] [address] Calcium [Mass/Vol] 7.8 mg/dL Low 8.5-10.5 [facility] Comment on above: Performed By: #### B ZAIN, CBCA #### [facility] ([id number]) [address], [address] [place] [address] Chloride [Moles/Vol] 111 mmol/L High 98-109 [facility] Comment on above: Performed By: #### B MP, CBCA #### [facility] ([id number]) [address], [address] [place] [address] CO2 [Moles/Vol] 22 mmol/L Normal 22-32 [facility] Comment on above: Performed By: #### B HUY PITTMAN #### [facility] ([id number]) [address] [address] [place] [address] Creatinine [Mass/Vol] 0.62 mg/dL Normal 0.40-1.00 [facility] Comment on above: Result Comment: METH OD TRACEABLE TO IDMS STANDARD Performed By: #### B HUY PITTMAN #### [facility] ([id number]) [address] [address] [place] [address] eGFR (CKD-EPI) NON-RACE DEPENDENT >90 Normal >59 [facility] Comment on above: Result Comment: Reported eGFR is based on the CKD-EPI 2020 equation that does not use a race coefficient. Performed By: #### B HUY PITTMAN #### [facility] ([id number]) [address], [address] [place] [address] Glucose [Mass/Vol] 118 mg/dL High 65-99 [facility] Comment on above: Performed By: #### B HUY PITTMAN #### [facility] ([id number]) [address] [address] [place] [address] Potassium [Moles/Vol] 3.6 mmol/L Normal 3.5-5.0 [facility] Comment on above: Performed By: #### B HUY PITTMAN #### [facility] ([id number]) [address] [address] [place] [address] Sodium [Moles/Vol] 140 mmol/L Normal 134-146 [facility] Comment on above: Performed By: #### B HUY PITTMAN #### [facility] ([id number]) [address] [address] [place] [address] Urea nitrogen [Mass/Vol] 10 mg/dL Normal 5-23 [facility] Comment on above: Performed By: #### B MP, CBCA #### [facility] ([id number]) [address] [address] [place] [address] CBC AND AUTO DIFFon 07-06-19 24 ABSOLUTE BASOPHIL 0.0 X10E9/L Normal 0.0-0.2 [facility] Comment on above: Performed By: #### B MP, CBCA #### [facility] ([id number]) [address], [address] [place] [address] ABSOLUTE NEUTROPHIL 12.5 X10E9/L High 1.5-6.6 [facility] Comment on above: Performed By: #### B MP, CBCA #### [facility] ([id number]) [address] [address] [place] [address] Basophils/100 WBC (Bld) 0.1 % Normal [facility] Comment on above: Performed By: #### B MP, CBCA #### [facility] ([id number]) [address] [address] Eosinophils (Bld) [#/Vol] 0.0 10*3/uL Normal 0.0-0.4 [facility] Comment on above: Performed By: #### B MP, CBCA #### [facility] ([id number]) [address] [address] Eosinophils/100 WBC (Bld) 0.0 % Normal [facility] Comment on above: Performed By: #### B MP, CBCA #### [facility] ([id number]) [address] [address] Erythrocyte distribution width (RBC) [Ratio] 14.1 % Normal 11.5-15.0 [facility] Comment on above: Performed By: #### B MP, CBCA #### [facility] ([id number]) [address] [place] [address] Hematocrit (Bld) [Volume fraction] 38.7 % Normal 35-47 [facility] Comment on above: Performed By: #### B ZAIN, CBCA #### [facility] ([id number]) [address], [address] [place] [address] Hemoglobin (Bld) [Mass/Vol] 13.0 g/dL Normal 11.7-15.5 [facility] Comment on above: Performed By: #### B MP, CBCA #### [facility] ([id number]) [address], [facility] [address] [place] [address] Lymphocytes (Bld) [#/Vol] 0.8 10*3/uL Low 1.0-3.5 [facility] Comment on above: Performed By: #### B ZAIN, CBCA #### [facility] ([id number]) [address], [address] [place] [address] Lymphocytes/100 WBC (Bld) 5.9 % Normal [facility] Comment on above: Performed By: #### B ZAIN, CBCA #### [facility] ([id number]) [address], [address] [place] [address] MCH (RBC) [Entitic mass] 29.7 pg Normal 27-34 [facility] Comment on above: Performed By: #### B MP, CBCA #### [facility] ([id number]) [address], [address] [place] [address] MCHC (RBC) [Mass/Vol] 33.6 g/dL Normal 32-36 [facility] Comment on above: Performed By: #### B MP, CBCA #### [facility] ([id number]) [address], [address] [place] [address] MCV (RBC) [Entitic vol] 88 fL Normal 80-100 [facility] Comment on above: Performed By: #### B MP, CBCA #### [facility] ([id number]) [address], [address] [place] [address] Monocytes (Bld) [#/Vol] 0.4 10*3/uL Normal 0-0.9 [facility] Comment on above: Performed By: #### B MP, CBCA #### [facility] ([id number]) [address], [address] [place] [address] Monocytes/100 WBC (Bld) 3.3 % Normal [facility] Comment on above: Performed By: #### B MP, CBCA #### [facility] ([id number]) [address], [address] [place] [address] Neutrophils/100 WBC (Bld) 90.7 % Normal [facility] Comment on above: Performed By: #### B MP, CBCA #### [facility] ([id number]) [address], [address] [place] [address] Platelet mean volume (Bld) [Entitic vol] 6.4 fL Low 7-12 [facility] Comment on above: Performed By: #### B MP, CBCA #### [facility] ([id number]) [address], [address] [place] [address] Platelets (Bld) [#/Vol] 349 10*3/uL Normal 150-450 [facility] Comment on above: Performed By: #### B MP, CBCA #### [facility] ([id number]) [address], [address] [place] [address] RBC COUNT 4.37 X10E12/L Normal 3.80-5.20 [facility] Comment on above: Performed By: #### B MP, CBCA #### [facility] ([id number]) [address], [address] [place] [address] WBC (Bld) [#/Vol] 13.8 10*3/uL High 4.0-11.0 [facility] Comment on above: Performed By: #### B MP, CBCA #### [facility] ([id number]) [address] [facility], [address] [place] [address] HCG ( test) Ql (U)o n 07-06-2023 Beta HCG ( test) Ql (U) Negative Normal NEG [facility] Comment on above: Performed By: #### 2 106-3 #### [facility] ([id number]) [address] [place] [address] Surgical Pathologyon 024 Surgical Pathology Normal [facility] Comment on above: Result Comment: [facility] [address] [place] [address] Surgical Pathology Consultation Patient Name:GISSEL DEL ROSARIO:1985 (Age: 38)Gender:FTaken:07/06/2023eported:07/10/2023hysician(s):Luís Andres M.D. ([phone])Copy To: Rec. #:[id number]: #[id number] Final Pathologic Diagnosis Bilateral fallopian tubes and [...] Out gp/07/10/2023Wagner Duncan MD Interpretation performed at [facility], [address] [place] [address], License number: [id number]. Clinical History Pelvic pain. Gross Description Received [...] each K 1 lymph node, serially sectioned (11,ss,[id number], m2) . /07/07/2023O Microscopic Findings Microscopic examination performed. Specimen(s) Received Bilateral tubes and ovaries and abdominal wall mass Fee Codes(s): 1; [address] CBC AND AUTO DIFFon 06-26-19 ABSOLUTE BASOPHIL 0.1 X10E9/L Normal 0.0-0.2 [facility] Comment on above: Performed By: #### C BCA #### [facility] ([id number]) [address], [address] [place] [address] ABSOLUTE NEUTROPHIL 6.4 X10E9/L Normal 1.5-6.6 [facility] Comment on above: Performed By: #### C BCA #### [facility] ([id number]) [address], [address] [place] [address] Basophils/100 WBC (Bld) 0.6 % Normal [facility] Comment on above: Performed By: #### C BCA #### [facility] ([id number]) [address], [address] [place] [address] Eosinophils (Bld) [#/Vol] 0.1 10*3/uL Normal 0.0-0.4 [facility] Comment on above: Performed By: #### C BCA #### [facility] ([id number]) [address], [address] [place] [address] Eosinophils/100 WBC (Bld) 0.7 % Normal [facility] Comment on above: Performed By: #### C BCA #### [facility] ([id number]) [address], [address] [place] [address] Erythrocyte distribution width (RBC) [Ratio] 14.6 % Normal 11.5-15.0 [facility] Comment on above: Performed By: #### C BCA #### [facility] ([id number]) [address], [address] [place] [address] Hematocrit (Bld) [Volume fraction] 42.5 % Normal 35-47 [facility] Comment on above: Performed By: #### C BCA #### [facility] ([id number]) [address], [address] [place] [address] Hemoglobin (Bld) [Mass/Vol] 14.2 g/dL Normal 11.7-15.5 [facility] Comment on above: Performed By: #### C BCA #### [facility] ([id number]) [address], [address] [place] [address] Lymphocytes (Bld) [#/Vol] 3.7 10*3/uL High 1.0-3.5 [facility] Comment on above: Performed By: #### C BCA #### [facility] ([id number]) [address], [address] [place] [address] Lymphocytes/100 WBC (Bld) 33.4 % Normal [facility] Comment on above: Performed By: #### C BCA #### [facility] ([id number]) [address], [address] [place] [address] MCH (RBC) [Entitic mass] 29.3 pg Normal 27-34 [facility] Comment on above: Performed By: #### C BCA #### [facility] ([id number]) [address], [address] [place] [address] MCHC (RBC) [Mass/Vol] 33.4 g/dL Normal 32-36 [facility] Comment on above: Performed By: #### C BCA #### [facility] ([id number]) [address], [address] [place] [address] MCV (RBC) [Entitic vol] 88 fL Normal 80-100 [facility] Comment on above: Performed By: #### C BCA #### [facility] ([id number]) [address], [address] [place] [address] Monocytes (Bld) [#/Vol] 0.7 10*3/uL Normal 0-0.9 [facility] Comment on above: Performed By: #### C BCA #### [facility] ([id number]) [address], [address] [place] [address] Monocytes/100 WBC (Bld) 6.5 % Normal [facility] Comment on above: Performed By: #### C BCA #### [facility] ([id number]) [address], [address] [place] [address] Neutrophils/100 WBC (Bld) 58.8 % Normal [facility] Comment on above: Performed By: #### C BCA #### [facility] ([id number]) [address], [address] [place] [address] Platelet mean volume (Bld) [Entitic vol] 6.6 fL Low 7-12 [facility] Comment on above: Performed By: #### C BCA #### [facility] ([id number]) [address] [address] [place] [address] Platelets (Bld) [#/Vol] 367 10*3/uL Normal 150-450 [facility] Comment on above: Performed By: #### C BCA #### [facility] ([id number]) [address], [address] [place] [address] RBC COUNT 4.84 X10E12/L Normal 3.80-5.20 [facility] Comment on above: Performed By: #### C BCA #### [facility] ([id number]) [address], [address] [place] [address] WBC (Bld) [#/Vol] 11.0 10*3/uL Normal 4.0-11.[address] [facility] Comment on above: Performed By: #### C BCA #### [facility] ([id number]) [address], [address] [place] [address] MR PELVIS WO CONTon 06-16-19 MR PELVIS [...] Rodrigez MD on 06/16/2023 11:29 AM Normal [facility] CT ABD/PELVIS WO CONon 08-05 [...] JAYDEN MORGAN Date: 2022-08-05 16:55 Normal [facility] QUANTIFERON TB GOLD PLUSon 0 06-18-2022 QuantiFERON Criteria Comment Normal [facility] Comment on above: Result Comment: Gagandeep tiFERON-TB [...] test. Performed By: #### Q NTTB #### [facility] [address] [place] [address] Dr. Yovanny Alcantara QuantiFERON Incubation Incubation performed. Normal [facility] Comment on above: Performed By: #### Q NTTB #### [facility] [address] [place] [address] Dr. Yovanny Alcantara QuantiFERON Mitogen Value >10.00 Normal [facility] Comment on above: Performed By: #### Q NTTB #### [facility] [address] [place] [address] Dr. Yovanny Alcantara QuantiFERON Nil Value 0.03 IU/mL [facility] Comment on above: Performed By: #### Q NTTB #### [facility] [address] [place] [address] Dr. Yovanny Alcantara QuantiFERON TB1 Ag Value 0.05 IU/mL [facility] Comment on above: Performed By: #### Q NTTB #### [facility] [address] [place] [address] Dr. Yovanny Alcantara QuantiFERON TB2 Ag Value 0.06 IU/mL Normal [facility] Comment on above: Performed By: #### Q NTTB #### [facility] [address] [place] [address] Dr. Yovanny Alcantara QuantiFERON-TB Gold Plus Negative Normal Negative [facility] Comment on above: Result Comment: No r esponse to M tuberculosis antigens detected. Infection with M tuberculosis is unlikely, but high risk individuals should be considered for additional testing (ATS/IDSA/CDC Clinical Practice Guidelines, 2017). The reference range is an Antigen minus Nil result of <0.35 IU/mL. Chemiluminescence immunoassay methodology Performed By: #### Q NTTB #### [facility] [address] [place] [address] Dr. Yovanny Alcantara HEPATITIS B SURFACE ANTIBODY , QUANTon 06-17-2022 Hepatitis B Surf AB Quant 3.5 mIU/mL Critically low Immunity>9.9 [facility] Comment on above: Result Comment: Stat us of Immunity Anti-HBs Level Inconsistent with Immunity 0.0 - 9.9 Consistent with Immunity >9.9 Performed By: #### H EPBSRF ####[facility] [address] [place] [address]Dr. Yovanny Alcantara MMR IMMUNITYon 06-17-2022 Mumps Abs, IgG 17.4 AU/mL Normal Immune >10.9 [facility] Comment on above: Result Comment: Nega tive <9.0 Equivocal 9.0 - 10.9 Positive >10.9 A positive result generally indicates past exposure to Mumps virus or previous vaccination. Performed By: #### M MRIMMU #### [facility] [address] [place] [address] Dr. Yovanny Alcantara Rubella Antibodies, IgG 1.68 index Normal Immune >0.99 [facility] Comment on above: Result Comment: Non- immune <0.90 Equivocal 0.90 - 0.99 Immune >0.99 Performed By: #### M MRIMMU #### [facility] [address] [place] [address] Dr. Yovanny Alcantara Rubeola Ab, IgG 108.0 AU/mL Normal Immune >16.4 [facility] Comment on above: Result Comment: Nega tive <13.5 Equivocal 13.5 - 16.4 Positive >16.4 Presence of antibodies to Rubeola is presumptive evidence of immunity except when acute infection is suspected. Performed By: #### M MRIMMU #### [facility] [address] [place], [place] [address] Dr. Yovanny Alcantara VARICELLA IGG ABon 3 Varicella Zoster IgG 947 index Normal Immune >165 [facility] Comment on above: Result Comment: Nega tive <135 Equivocal 135 - 165 Positive >165 A positive result generally indicates exposure to the pathogen or administration of specific immunoglobulins, but it is not indication of active infection or stage of disease. Performed By: #### V ARCEL ####[facility] [address] [place], [place] [address]ClDr. Yovanny Alcantara Consent Formson 05-01-2022 Consent Forms [id number] 2 [id number] Normal [facility] US [...] FRANTZ COVARRUBIAS Date: 2021-12-30 10:39 Normal [facility] CBC AUTO DIFFon 12-29-2021 BASO # 0.1 103/ul Normal 0.0-0.1 [facility] Comment on above: Performed By: #### C BC #### [facility] [address] [place], [place] [address] Dr. Yovanny Alcantara Basophils/100 WBC (Bld) 0.7 % Normal 0.2-2.0 [facility] Comment on above: Performed By: #### C BC #### [facility] [address] [place] [address] Dr. Yovanny Alcantara EO # 0.2 103/ul Normal 0.0-0.7 [facility] Comment on above: Performed By: #### C BC #### [facility] [address] [place] [address] Dr. Yovanny Alcantara Eosinophils/100 WBC (Bld) 1.3 % Normal 0.9-7.0 [facility] Comment on above: Performed By: #### C BC #### [facility] [address] [place] [address] Dr. Yovanny Alcantara Erythrocyte distribution width (RBC) [Ratio] 13.9 % Normal 11.0-15.0 [facility] Comment on above: Performed By: #### C BC #### [facility] [address] [place] [address] Dr. Yovanny Alcantara Hematocrit (Bld) [Volume fraction] 43.7 % Normal 36.0-48.0 [facility] Comment on above: Performed By: #### C BC #### [facility] [address] [place] [address] Dr. Yovanny Alcantara Hemoglobin (Bld) [Mass/Vol] 13.8 g/dL Normal 12.0-16.0 [facility] Comment on above: Performed By: #### C BC #### [facility] [address] [place] [address] Dr. Yovanny Alcantara IG # 0.11 10e3/ul Critically high 0.00-0.03 [facility] Comment on above: Performed By: #### C BC #### [facility] [address] [place] [address] Dr. Yovanny Alcantara IG % 0.8 % Critically high 0.0-0.5 [facility] Comment on above: Performed By: #### C BC #### [facility] [address] [place] [address] Dr. Yovanny Alcantara LYMPH # 3.7 103/ul Normal 1.2-3.8 [facility] Comment on above: Performed By: #### C BC #### [facility] [address] [place] [address] Dr. Yovanny Alcantara Lymphocytes/100 WBC (Bld) 27.0 % Normal 20.5-60.0 [facility] Comment on above: Performed By: #### C BC #### [facility] [address] [place] [address] Dr. Yovanny Alcantara MANUAL DIFF REQ NO Normal [facility] Comment on above: Performed By: #### C BC #### [facility] [address] [place] [address] Dr. Yovanny Alcantara MCH (RBC) [Entitic mass] 26.7 pg Normal 26.7-34.0 [facility] Comment on above: Performed By: #### C BC #### [facility] [address] [place] [address] Dr. Yovanny Alcantara MCHC (RBC) [Mass/Vol] 31.6 g/dL Normal 29.9-35.2 [facility] Comment on above: Performed By: #### C BC #### [facility] [address] [place] [address] Dr. Yovanny Alcantara MCV (RBC) [Entitic vol] 84.5 fL Normal 81.0-99.0 [facility] Comment on above: Performed By: #### C BC #### [facility] [address] [place] [address] Dr. Yovanny Alcantara MONO # 0.9 103/ul Critically high 0.3-0.8 [facility] Comment on above: Performed By: #### C BC #### [facility] [address] [place] [address] Dr. Yovanny Alcantara Monocytes/100 WBC (Bld) 6.5 % Normal 1.7-12.0 [facility] Comment on above: Performed By: #### C BC #### [facility] [address] [place] [address] Dr. Yovanny Alcantara NEUT # 8.8 103/ul Critically high 1.4-6.5 [facility] Comment on above: Performed By: #### C BC #### [facility] [address] [place] [address] [address] Yovanny Alcantara Neutrophils/100 WBC (Bld) 63.7 % Normal 43.0-75.0 [facility] Comment on above: Performed By: #### C BC #### [facility] [address] [place] [address] [address] Yovanny Alcantara Platelet mean volume (Bld) [Entitic vol] 8.3 fL Critically low 9.5-13.5 [facility] Comment on above: Performed By: #### C BC #### [facility] [address] [place] [address] [address] Yovanny Alcantara PLT 364 103/ul Normal 150-450 [facility] Comment on above: Performed By: #### C BC #### [facility] [address] [place] [address] Dr. Yovanny Alcantara RBC 5.17 106/ul Normal 4.20-5.40 [facility] System Comment on above: Performed By: #### C BC #### [facility] [address] [address] [address] Yovanny Alcantara WBC 13.8 103/ul Critically high 4.0-11.0 [facility] Comment on above: Performed By: #### C BC #### [facility] [address] [place] [address] Dr. Yovanny Alcantara CTA CHEST WO W [...] AMINA WU Date: 2021-12-29 01:20 Normal [facility] D-DIMERon 12-29-2021 D-DIMER 0.68 mg/L FEU Critically high <=0.59 [facility] Comment on above: Performed By: #### P TT, PT, DDIM ####[facility] [id number] [address]Dr[address] Yovanny Alcantara D-DIMER COMMENTS SEE BELOW Normal The [facility] Comment on above: Result Comment: [...] Performed By: #### P TT, PT, DDIM ####[facility] [id number] [address]Dr. Yovanny Alcantara ER URINE PROFILEon 2 Bilirubin Ql (U) Negative Normal NEGATIVE The [facility] Comment on above: Performed By: #### E RUR #### [facility] [address] [address] [address] Yovanny Alcantara Clarity (U) CLEAR Normal CLEAR The [facility] Comment on above: Performed By: #### E RUR #### [facility] [address] [address] [address] Yovanny Alcantara Color (U) YELLOW Normal YELLOW [facility] Comment on above: Performed By: #### E RUR #### [facility] [address] [address] [address] Yovanny LONG A micrscopic examination will be performed if indicated. Normal [facility] Comment on above: Performed By: #### E RUR #### [facility] [address] [place] [address] Dr. Yovanny Alcantara Glucose Ql (U) Negative Normal NEGATIVE The [facility] Comment on above: Performed By: #### E RUR #### [facility] [address] [place] [address] Dr. Yovanny Alcantara Hemoglobin Ql (U) Negative Normal NEGATIVE [facility] Comment on above: Performed By: #### E RUR #### [facility] [address] [place] [address] Dr. Yovanny Alcantara Ketones Ql (U) Negative Normal NEGATIVE [facility] Comment on above: Performed By: #### E RUR #### [facility] [address] [place] [address] Dr. Yovanny Alcantara LEUKOCYTES Negative Normal NEGATIVE [facility] Comment on above: Performed By: #### E RUR #### [facility] [address] [place] [address] Dr. Yovanny Alcantara Nitrite Ql (U) Negative Normal NEGATIVE [facility] Comment on above: Performed By: #### E RUR #### [facility] [address] [place] [address] Dr. Yovanny Alcantara pH (U) 6.5 [pH] Normal 5-9 [facility] Comment on above: Performed By: #### E RUR #### [facility] [address] [place] [address] Dr. Yovanny Alcantara SPEC GRAVITY 1.020 Normal 1.005-<=1.025 [facility] Comment on above: Performed By: #### E RUR #### [facility] [address] [place] [address] Dr. Yovanny Alcantara UA PROTEIN Negative Normal NEGATIVE/ TRACE The [facility] Comment on above: Performed By: #### E RUR #### [facility] [address] [address] [address] Yovanny Alcantara UR MICRO IND NOT INDICATED Normal [facility] Comment on above: Performed By: #### E RUR #### [facility] [address] [address] [address] Yovanny Alcantara Urobilinogen Qn (U) 0.2 {Eunice'U}/dL Normal 0.2 - 1.0 [facility] Comment on above: Performed By: #### E RUR #### [facility] [address] [address] [address] Yovanny Alcantara PROTIMEon 12-29-2021 INR Coag (PPP) [Relative time] 0.94 {INR} Normal [facility] Comment on above: Performed By: #### P TT, PT, DDIM ####[facility] [id number] [place], [place] [address]DrJessica Alcantara INR GUIDELINES SEE BELOW Normal The [facility] Comment on above: Result Comment: JENNIFER RED INR: 2.0 - 3.0 CONDITIONS NOT LISTED BELOW 2.5 - 3.5 FOR PROSTHETIC HEART VALVE REPLACEMENT 2.5 - 3.5 RECURRENT THROMBOSIS Performed By: #### P TT, PT, DDIM ####[facility] [id number] [address]DrJessica Alcantara PT Coag (PPP) [Time] 10.2 s Normal 9.0-11.6 [facility] Comment on above: Performed By: #### P TT, PT, DDIM ####[facility] [id number] [address]Dr. Yovanny Alcantara PTTon 12-29-2021 aPTT Coag (Bld) [Time] 28.2 s Normal 22.3-36.2 [facility] Comment on above: Performed By: #### P TT, PT, DDIM ####[facility] [id number] [address]DrJessica Alcantara .QC Respiratory Panel 2.1 (B ioFire)on 11-19-2021 Internal Control-Resp Panel 2.1(BioFire) Pass [facility] Comment on above: Order Comment: Order ed by Discern. [[id number]] Performed By: #### [id number] #### [facility] (DEFAULT) [address] [place] [address] Consent Formson 11-08-2021 Consent Forms [id number] .[id number] [facility] .QC Respiratory Panel 2.1 (B ioFire)on 11-02-2021 Internal Control-Resp Panel 2.1(BioFire) [facility] Comment on above: Order Comment: Order ed by Discern. [[id number]] Performed By: #### [id number] #### [facility] (DEFAULT) [address] [place] [address] XR LSPINE 2_3 VIEWSon 2021 XR LSPINE [...] ASHLEY CARRANZA Date: 2021-09-28 07:54 Normal [facility] US PELVIS AND TRANSVAGon US PELVIS AND [...] authenticated by: BRIAN SINGER Date: 2021-08-20 09:02 [facility] Consent Formson 05-16-2021 Consent Forms [id number] .[id number] [facility] .QC Respiratory Panel 2.1 (B ioFire)on 05-13-2021 Internal Control-Resp Panel 2.1(BioFire) Pass [facility] Comment on above: Order Comment: Order ed by Mirian. [[id number]] Performed By: #### 6 [id number] #### [facility] (DEFAULT) [address] [place] [address] Vital Signs Date Time Vital Sign Value Performing Clinician Facility 12-23-2023 14:16-0400 Blood Pressure Location Bryant IGLESIAS [facility] 12-23-2023 14:16-0400 Diastolic blood pressure 104 mm[Hg] Byrant IGLESIAS [facility] 12-23-2023 14:16-0400 Heart rate 84 /min Bryant IGLESIAS [facility] 12-23-2023 14:16-0400 Respiratory rate 16 /min Bryant IGLESIAS [facility] 12-23-2023 14:16-0400 Systolic blood pressure 144 mm[Hg] Bryant IGLESIAS [facility] 08-05-2023 10:57-0400 Body height 157.5 cm Dayanara CORTES Work Phone: [employer] [facility] 08-05-2023 10:57-0400 Body mass index (BMI) [Ratio] 28.34 kg/m2 Dayanara Carroll PA [facility] 08-05-2023 10:57-0400 Body temperature 97.9 [degF] [facility] Carroll [facility] 08-05-2023 10:57-0400 Body weight 70.31 kg Dayanara Carroll PA [facility] 08-05-2023 10:57-0400 Diastolic blood pressure 118 mm[Hg] Dayanara Carroll PA [facility] 08-05-2023 10:57-0400 Heart rate 115 /min Dayanara Carroll PA [facility] 08-05-2023 10:57-0400 Respiratory rate 18 /min Dayanara Carroll PA [facility] 08-05-2023 10:57-0400 SaO2% (BldA) [Mass fraction] 100 % Dayanara Carroll PA [facility] 08-05-2023 10:57-0400 Systolic blood pressure 149 mm[Hg] Dayanara Carroll PA [facility] 07-30-2023 14:43-0400 Body height 157.5 cm Basel Sharda PA Work [facility]: [facility] 07-30-2023 14:43-0400 Body mass index (BMI) [Ratio] 29.26 kg/m2 Basel Sharda PA Work [facility] 07-30-2023 14:43-0400 Body weight 72.58 kg Basel Sharda PA [facility] 07-22-2023 08:52-0400 Body height 157.5 cm Dayanara Carroll PA [facility] 07-22-2023 08:52-0400 Body mass index (BMI) [Ratio] 29.26 kg/m2 Dayanara Carroll PA [facility] 07-22-2023 08:52-0400 Body weight 72.58 kg Dayanara Carroll PA [facility] 07-22-2023 08:52-0400 Diastolic blood pressure 95 mm[Hg] Dayanara Carroll PA [facility] 07-22-2023 08:52-0400 Heart rate 90 /min Dayanara Carroll PA [facility] 07-22-2023 08:52-0400 Respiratory rate 20 /min Dayanara Carroll PA [facility] 07-22-2023 08:52-0400 SaO2% (BldA) [Mass fraction] 100 % Dayanara Carroll PA [facility] 07-22-2023 08:52-0400 Systolic blood pressure 122 mm[Hg] Dayanara Carroll PA Work Phone: [facility] 06-17-2023 08:25-0500 Body height 157.5 cm Luís Andres MD Work Phone: [facility] 06-17-2023 08:25-0500 Body mass index (BMI) [Ratio] 29.29 kg/m2 Luís Andres MD [facility] 06-17-2023 08:25-0500 Body temperature 98.6 [degF] Luís Andres MD [facility] 06-17-2023 08:25-0500 Body weight 72.67 kg Luís Andres MD [facility] 06-17-2023 08:25-0500 Diastolic blood pressure 84 mm[Hg] Luís Andres MD Work Phone: [facility] 06-17-2023 08:25-0500 Heart rate 95 /min Luís Andres MD Work Phone: [facility] 06-17-2023 08:25-0500 SaO2% (BldA) [Mass fraction] 90 % Luís Andres MD Work Phone: [facility] 06-17-2023 08:25-0500 Systolic blood pressure 128 mm[Hg] Luís Andres MD Work Phone: [facility] 06-11-2023 15:12-0500 Body height 157.5 cm Joseph Sotelo MD Work Phone: [facility] 06-11-2023 15:12-0500 Body mass index (BMI) [Ratio] 28.53 kg/m2 Josehp Sotelo MD Work Phone: [facility] 06-11-2023 15:12-0500 Body temperature 97.81 [degF] Joseph Sotelo MD Work Phone: [facility] 06-11-2023 15:12-0500 Body weight 70.76 kg Joseph Sotelo MD Work Phone: [facility] 06-11-2023 15:12-0500 Diastolic blood pressure 60 mm[Hg] Joseph Sotelo MD Work Phone: [facility] 06-11-2023 15:12-0500 Heart rate 101 /min Joseph Sotelo MD Work Phone: [facility] 06-11-2023 15:12-0500 SaO2% (BldA) [Mass fraction] 99 % Joseph Sotelo MD Work Phone: [facility] 06-11-2023 15:12-0500 Systolic blood pressure 100 mm[Hg] Joseph Sotelo MD Work Phone: [facility] 06-03-2023 08:26-0500 Diastolic blood pressure 64 mm[Hg] Luís Andres MD Work Phone: [facility] 06-03-2023 08:26-0500 Systolic blood pressure 106 mm[Hg] Luís Andres MD Work Phone: [facility] 06-03-2023 08:12-0500 Body height 157.5 cm Luís Andres MD Work Phone: [facility] 06-03-2023 08:12-0500 Body mass index (BMI) [Ratio] 29.26 kg/m2 Luís Andres MD Work Phone: [facility] 06-03-2023 08:12-0500 Body weight 72.58 kg Luís Andres MD Work Phone: [facility] 03-24-2023 10:40-0500 Body height 154.1 cm Vu Juarez MD MPH Work Phone: [facility] 03-24-2023 10:40-0500 Body mass index (BMI) [Ratio] 31.92 kg/m2 Vu Juarez MD MPH Work Phone: [facility] 03-24-2023 10:40-0500 Body temperature 97.3 [degF] Vu Juarez MD MPH Work Phone: [facility] 03-24-2023 10:40-0500 Body weight 75.8 kg Vu Juarez MD MPH Work Phone: [facility] 03-24-2023 10:40-0500 Diastolic blood pressure 107 mm[Hg] Vu Juarez MD MPH Work Phone: [facility] 03-24-2023 10:40-0500 Heart rate 85 /min Vu Juarez MD MPH Work Phone: [facility] 03-24-2023 10:40-0500 Respiratory rate 16 /min Vu Juarez MD MPH Work Phone: [facility] 03-24-2023 10:40-0500 SaO2% (BldA) [Mass fraction] 98 % Vu Juarez MD MPH Work Phone: [facility] 03-24-2023 10:40-0500 Systolic blood pressure 148 mm[Hg] Vu Juarez MD MPH Work Phone: [facility] 09-05-2022 10:45-0400 Body height 155.57 cm Hilary Staton Other [employer] Other 09-05-2022 10:45-0400 Body mass index (BMI) [Ratio] 33.73 kg/m2 Hilary Staton Other [employer] Other 09-05-2022 10:45-0400 Body temperature 97.3 [degF] Hilary Staton Other [employer] Other 09-05-2022 10:45-0400 Body weight 81.65 kg Hilary Staton Other [employer] Other 09-05-2022 10:45-0400 Diastolic blood pressure 98 mm[Hg] Hilary Staton Other [employer] Other 09-05-2022 10:45-0400 Respiratory rate 18 /min Hilary Staton Other [employer] Other 09-05-2022 10:45-0400 SaO2% (BldA) [Mass fraction] 99 % Hilary Staton Other [employer] Other 09-05-2022 10:45-0400 Systolic blood pressure 139 mm[Hg] Hilary Staton Other [employer] Other 07-04-2014 13:22-0500 Blood Pressure Location Bryant IGLESIAS [facility] 07-04-2014 13:22-0500 Body temperature 97.7 [degF] Bryant IGLESIAS [facility] 07-04-2014 13:22-0500 Diastolic blood pressure 79 mm[Hg] Bryant IGLESIAS [facility] 07-04-2014 13:22-0500 Heart rate 96 /min Bryant IGLESIAS [facility] 07-04-2014 13:22-0500 Mean blood pressure 90 mm[Hg] Bryant IGLESIAS [facility] 07-04-2014 13:22-0500 Respiratory rate 16 /min Bryant IGLESIAS [facility] 07-04-2014 13:22-0500 SaO2% (BldA) [Mass fraction] 97 % Bryant IGLESIAS [facility] 07-04-2014 13:22-0500 Systolic blood pressure 111 mm[Hg] Bryant IGLESIAS [facility] Encounters Encounter Date Encounter Type Care Provider Facility Start: 01-06-2024 End: 01-07-2024 ambulatory [facility] Start: 12-23-2023 End: 12-24-2023 ambulatory Bryant IGLESIAS Facility:[id number] Start: 12-23-2023 End: 12-23-2023 Patient encounter procedure Bryant IGLESIAS [facility] Start: 12-22-2023 ambulatory Bryant IGLESIAS Facility :[facility] Start: 09-25-2023 End: 09-26-2023 ambulatory [facility] Start: 08-05-2023 End: 08-05-2023 ambulatory [facility] Start: 08-05-2023 End: 08-05-2023 Postop follow up visit related to original px Dayanara CORTES Work Phone: Diana Recio [facility] Comment on above: Encounter for postop erative care (Primary Dx); Menopausal symptoms Start: 08-03-2023 Telephone encounter Dayanara CORTES Work Phone: [facility] Start: 07-30-2023 End: 07-30-2023 Postop follow up visit related to original px [facility] Work Phone: [facility] Comment on above: Abdominal wall mass (Primary Dx) Start: 07-30-2023 End: 07-30-2023 ambulatory [facility] Start: 07-27-2023 Orders Only Dayanara CORTES Work Phone: [facility] Comment on above: Muscle spasms of bot h lower extremities (Primary Dx) Start: 07-22-2023 End: 07-22-2023 [facility] Start: 07-22-2023 End: 07-22-2023 Postop follow up visit related to original px Dayanara CORTES Work Phone: Diana Recio [facility] Comment on above: Encounter for postop erative care (Primary Dx); Menopausal symptoms; Acute serous otitis media, recurrence not specified, unspecified laterality Start: 07-13-2023 Telephone encounter Sheyla Mendoza RN [facility] Start: 07-07-2023 End: 07-07-2023 Evaluation and management of inpatient ELSI PRABHJOT [facility] Start: 07-06-2023 End: 07-07-2023 Evaluation and management of inpatient LUÍS Nash [facility] Start: 06-29-2023 End: 06-29-2023 Admission to [facility] Phone Call Provider 2 Lashanda Horn [facility] Start: 06-29-2023 End: 06-29-2023 ambulatory JOSEPH SOTELO [facility] Start: 06-26-2023 End: 06-27-2023 ambulatory LUÍS Nash MCKENNA [facility] Start: 06-26-2023 Encounter for other preprocedural examination DAYANARA CARROLL [facility] Start: 06-25-2023 Orders Only Luís Andres MD Work Phone: [facility] Comment on above: Preop testing (Prima ry Dx) Start: 06-25-2023 Patient encounter status Luís Andres MD Work Phone: [facility] Start: 06-17-2023 End: 06-17-2023 ambulatory [facility] Start: 06-17-2023 End: 06-17-2023 Office outpatient visit 40 minutes Luís Andres MD Work Phone: [facility] Comment on above: Pelvic mass (Primary Dx) Start: 2023 End: 06-16-2023 ambulatory [facility] Start: 06-11-2023 End: 06-11-2023 ambulatory JOSEPH [...] [facility] Start: 06-03-2023 End: 06-03-2023 ambulatory [facility] Start: 06-03-2023 End: 06-03-2023 Office outpatient new 60 minutes Luís Andres MD [facility]: [facility] Comment on above: Pelvic mass (Primary Dx); Endometriosis; 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; Pelvic pain Start: 05-22-2023 ambulatory JOSEPH SOTELO [facility] Start: 05-20-2023 Telephone encounter Sheyla [...] Available Start: 03-24-2023 End: 03-24-2023 [facility] Start: 03-24-2023 End: 03-24-2023 Office outpatient new 60 minutes Vu Juarez MD MPH Work Phone: [facility] Comment on above: Endometrioma (Primar y Dx) Start: 09-05-2022 End: 09-05-2022 ambulatory Hilary Staton Other [employer] Other Start: 09-05-2022 Office outpatient ne w [...] Hospital Start: 09-27-2021 End: 09-28-[address] JOSPEH SOTELO Facility:[facility] Start: 08-20-2021 End: 08-21-2021 ambulatory [...] 2) Zoste r Vaccines (1 of 2) [facility] Start: 07-28-2027 DTaP,Tdap and Td Vaccines (6 - Td or Tdap) DTaP,Tdap and Td Vaccines (6 - Td or Tdap) [facility] Start: 07-28-2027 DTaP/Tdap/Td Vaccine s (6 - Td or Tdap) DTaP/Tdap/Td Vaccines (6 - Td or Tdap) [facility] Start: 08-04-2024 Adult BMI Screening Adult BMI Screen ing [facility] Start: 07-29-2024 Adult BMI Screening Adult BMI Screen ing [facility] Start: 07-29-2024 Tobacco Screening Tobacco Screening [facility] Start: 07-21-2024 Adult BMI Screening Adult BMI Screen ing [facility] Start: 07-21-2024 Tobacco Screening Tobacco Screening [facility] Start: 07-06-2024 Adult BMI Screening Adult BMI Screen ing [facility] Start: 07-05-2024 Depression Screening Depression Scre ening [facility] Start: 07-05-2024 Tobacco Screening Tobacco Screening [facility] Start: 06-29-2024 Tobacco Screening Tobacco Screening [facility] Start: 06-17-2024 Adult BMI Screening Adult BMI Screen ing [facility] Start: 06-17-2024 Tobacco Screening Tobacco Screening [facility] Start: 06-03-2024 Adult BMI Screening Adult BMI Screen ing [facility] Start: 06-03-2024 Tobacco Screening Tobacco Screening [facility] Start: 01-03-2024 Influenza vaccination Influenza Vacc ine [facility] Start: 08-10-2023 End: 08-10-2023 Patient encounter procedure 08/10/2023 2:45 PM EDT [facility] [address] [place] [address] Joseph Sotelo MD [address] [place] [address] [facility] Start: 08-05-2023 End: 08-05-2023 Patient encounter procedure Diana Recio [facility] Start: 07-30-2023 End: 07-30-2023 Patient encounter procedure 07/30/2023 3:00 PM EDT Office Visit [facility] General Surgery [address] [address] [place] [address] [facility] Start: 07-22-2023 End: 07-22-2023 Patient encounter procedure 07/22/2023 9:00 AM EDT Office Visit Diana Recio [facility] [address] [place] [address] Dayanara Carroll PA [address] [place] [address] Diana Recio [facility] Start: 07-06-2023 End: 07-06-2023 Admission to same day surgery center [facility] Comment on above: DAVINCI SALPINGO OOP HORECTOMY/ ABDOMINAL WALL RESECTION ENDOMETRIOSIS DAVINCI SALPINGO OOP HORECTOMY Start: 07-06-2023 End: 07-06-2023 DAVINCI SALPINGO OOPHORECTOMY DAVINCI SALPINGO OOPHORECTOMY PELVIC PAIN 07/06/2023 10:00 AM EST [facility] Start: 07-06-2023 End: 07-06-2023 Laps fulg/exc ovary viscera/peritoneal surface DAVINCI FULGURATION ENDOMETRIAL IMPLANTS PELVIC PAIN 07/06/2023 10:00 AM EST [facility] Start: 07-06-2023 Subsequent hospital visit by physician 07/06/2023 10:00 AM EST Hospital Encounter [facility] [address] [place] [id number] Luís Andres MD [address] [place] [address], [address] [place] [address] [facility] Start: 07-06-2023 End: 07-06-2023 Unlisted laparoscopic px abd pertoneum & omentum DAVINCI RESECTION MASS PERITONEAL PELVIC PAIN 07/06/2023 10:00 AM EST [facility] Start: 06-29-2023 End: 06-29-2023 Admission to establishment 06/29/2023 12:45 PM EST Support Visit [facility] On [address] [address] [facility] Start: 06-17-2023 End: 06-17-2023 Patient encounter procedure 06/17/2023 8:30 AM EST Office Visit [facility] [address] [place] [address] [address] [place] [address] Luís Andres MD [address] [place] [address], [address] [place] [address] [facility] Start: 06-11-2023 End: 06-11-2023 Patient encounter procedure 06/11/2023 3:15 PM EST Office Visit [facility] [address] [place] [address] Joseph Sotelo MD [address] [place] [address] Arrived [facility] Comment on above: Arrived Start: 06-03-2023 End: 06-03-2024 MR Pelvis WO contrast MR pelvis without contrast Imaging Routine Pelvic mass Endometriosis Expected: 06/03/2023, Expires: 06/03/2024 [facility] Work Phone: Comment on above: Expected: 06/03/2023 , Expires: 06/03/2024 Start: 06-03-2023 End: 06-03-2023 Patient encounter procedure 06/03/2023 8:00 AM EST Office Visit [facility] [address] [place] [address] [address] [place] [address] Luís [place] [address] [place] [address], [address] [place] [address] [facility] Start: 01-02-2023 COVID-19 Vaccine ( season) COVID-19 Vaccine ( season) [facility] Start: 01-02-2023 Influenza vaccination [facility] Start: 04-26-2021 COVID-19 Vaccine (4 - Moderna series) COVID-19 Vaccine (4 - Moderna series) [facility] Start: 12-24-2017 Varicella vaccination Varicell a Vaccines (2 of 2 - 13+ 2-dose series) [facility] Start: 2007 Screening for malign ant neoplasm of cervix [facility] Start: 2004 Adult BMI Follow Up Plan Adult BMI Follow Up Plan [facility] Start: 2004 Adult BMI Screening Adult BMI Screen ing [facility] Start: 2004 Diabetes mellitus screening Diabetes Screening [facility] Start: 2004 Hepatitis C screening Hepatitis C Sc reening [facility] Start: 1998 Depression Screening Depression Scre ening [facility] Start: 1998 Tobacco Screening Tobacco Screening [facility] Start: 1986 HIV screening HIV Screening [facility] Start: 1986 Lipid panel Lipid Panel [facility] Start: 1986 Yearly Adult Physical Yearly Adult P hysical [facility] End: 06-25-2024 CBC W Auto Differential panel - Blood CBC with auto diff Lab Routine Preop testing 1 Occurrences starting 06/25/2023 until 06/25/2024 [facility] Work Phone: Comment on above: 1 Occurrences starti ng 06/25/2023 until 06/25/2024 Immunizations Immunization Date Immunization Notes Care Provider Fa sarah 02-18-2021 influenza, injectabl e, quadrivalent, preservative free Sheyla Mendoza RN [facility] 02-18-2021 influenza virus vaccine, unspecified formulation Vu Juarez MD MPH Work Phone: [facility] Work Phone: 01-31-2020 influenza, injectabl e, quadrivalent, preservative free Sheyla Mendoza RN [facility] 01-31-2020 influenza virus vaccine, unspecified formulation Sheyla Mendoza RN [facility] 01-29-2020 influenza, injectabl e, quadrivalent, preservative free Sheyla Mendoza RN [facility] 01-13-2019 influenza, injectabl e, quadrivalent, preservative free Sheyla Mendoza RN [facility] 01-01-2018 influenza, injectabl e, quadrivalent, preservative free Sheyla Mendoza RN [facility] 11-26-2017 hepatitis B vaccine, adult dosage Sheyla Mendoza RN [facility] 11-26-2017 varicella virus vaccine Vu Juarez MD MPH Work Phone: [facility] Work Phone: 07-27-2017 hepatitis B vaccine, adult dosage Sheyla Mendoza RN [facility] 07-27-2017 tetanus toxoid, reduced diphtheria toxoid, and acellular pertussis vaccine, adsorbed Sheyla Mendoza RN [facility] 01-11-2014 influenza, seasonal, injectable, preservative free Hilary Staton Other [employer] Other 12-28-1998 hepatitis B vaccine, pediatric or pediatric/adolescent dosage Sheyla Mendoza RN [facility] 12-28-1998 measles, mumps and rubella virus vaccine Sheyla Mendoza RN [facility] 12-28-1998 TD(adult) unspecifie d formulation Sheyla Mendoza RN [facility] 07-01-1991 diphtheria, tetanus toxoids and pertussis vaccine Sheyla Mendoza RN [facility] 07-01-1991 trivalent poliovirus vaccine, live, oral Sheyla Mendoza RN [facility] 01-30-1989 diphtheria, tetanus toxoids and pertussis vaccine Sheyla Mendoza RN [facility] 01-30-1989 measles, mumps and rubella virus vaccine Sheyla Mendoza RN [facility] 1986 diphtheria, tetanus toxoids and pertussis vaccine Sheyla Mendoza RN [facility] 1986 trivalent poliovirus vaccine, live, oral Sheyla Mendoza RN [facility] 1986 diphtheria, tetanus toxoids and pertussis vaccine Sheyla Mendoza RN [facility] 1986 trivalent poliovirus vaccine, live, oral Sheyla Mendoza RN [facility] Payers Date Payer Category Payer Unknown [id number] 2017 [facility] [employer] [id number] 2014 Unknown [id number] 1986 Unknown [id number] 2.16.84 0.1.243654.3.579.2.593 1986 Unknown [id number] 2.16.84 0.1.382602.3.579.2.593 1986 Unknown [id number] 2.16.84 0.1.644356.3.579.2.593 1986 Unknown [id number] 2.16.84 0.1.149859.3.579.2.593 1986 Unknown [id number] 2.16.84 0.1.715519.3.579.2.593 1986 Unknown [id number] 2.16.8 40.1.542540.3.579.2.1245 1986 Unknown [id number] 2.16.84 0.1.291166.3.579.2.1286 1986 Unknown [id number] 2.16.84 0.1.838029.3.579.2.1286 1986 Unknown [id number] 2.16.84 0.1.079371.3.579.2.1259 1986 Unknown [id number] 2.16.84 0.1.915729.3.579.2.1259 1986 Unknown [id number] 2.16.840 .1.028253.3.579.2.9 1986 Unknown [id number] 2.16.840 .1.625003.3.579.2.1259 1986 Unknown [id number] 2.16.8 40.1.562620.3.579.2.6 1986 Unknown [id number] 2.16.8 40.1.620237.3.579.2.6 1986 Unknown [id number] 2.16.8 40.1.779420.3.579.2.1285 1986 Unknown [id number] 2.16.8 40.1.546253.3.579.2.128 1986 Unknown [id number] 2.16.8 40.1.253161.3.579.2.1285 1986 Unknown [id number] 2.16.8 40.1.983819.3.579.2.1285 1986 Unknown [id number] 2.16.8 40.1.273158.3.579.2.1285 1986 Unknown [id number] 2.16.8 40.1.767170.3.579.2.1286 1986 Unknown [id number] 2.16.8 40.1.237920.3.579.2.1286 1986 Unknown [id number] 2.16.8 40.1.148654.3.579.2.1286 1986 Unknown [id number] 2.16.8 40.1.332627.3.579.2.1286 1986 Unknown [id number] 2.16.8 40.1.024479.3.579.2.1286 1986 Unknown [id number] 2.16.8 40.1.573803.3.579.2.1286 1986 Unknown [id number] 2.16.8 40.1.099117.3.579.2.1286 1986 Unknown [id number] 2.16.8 40.1.539594.3.579.2.727 1986 Unknown [id number] 2.16.8 40.1.833807.3.579.2.727 1986 Unknown [id number] 2.16.8 40.1.709642.3.579.2.727 1986 Unknown [id number] 2.16.8 40.1.072337.3.579.2.727 1959 Self-pay 1959 Unknown [id number] Unknown [id number] 2.16.84 0.1.447888.3.579.2.593 Social History Date Type Detail Facility Unknown if ever smoked [employer] Other Start: 05-30-2020 End: 04-08-2023 [facility] consumption unknown [facility] Work Phone: Start: 1986 Sex Assigned At Not on file [facility] Work Phone: Start: 03-14-2023 End: 04-08-2023 Exposure to SARS-CoV-2 (event) Not sure [facility] Start: 04-08-2023 End: 12-23-2023 Tobacco smoking status NHIS Never smoked tobacco [facility] Start: 04-08-2023 End: 06-29-2023 Tobacco use and exposure Smokeless tobacco non-user [facility] Work Phone: Start: 04-08-2023 Alcohol intake Ex-drinker (finding) [facility] Work Phone: Start: 05-30-2020 End: 04-08-2023 History of Social function [facility] Start: 11-26-2018 End: 07-30-2023 Alcohol intake Current drinker of alcohol (finding) [facility] Start: 11-02-2017 Alcohol Comment socially [facility] Start: 05-19-2023 End: 06-11-2023 [...] Start: 06-29-2023 Alcohol Comment 0-1 per month [employer] [facility] Medical Equipment Procedure Code Equipment Code Equipment Origin al Text Equipment Identifier Dates Mesh [id number] Flt Vcl Abs Wvn Srg Hrn Repr - [id number] Start: 07-06-2023 Goals Date Patient Goal Desired Activity /State Personal health goal Comment on above: Formatting of this n ote might be different from the original. Evaluation of progress towards goal: Patient plans to discharge home with self care and with assistance from family. Functional Status Date Assessment Result Facility 12-23-2023 Functional Status N/A [facility] Clinical Notes 09-28-2021 to 12-23-2023 SEBASTIAN Wang [...] Follow these instructions at home: Medicines Take muwe-cnn-swhadij and prescription medicines only as told by [...] prevent or treat constipation, such as: ?Take gwvc-zfm-oyweswe or prescription medicines. ?Eat foods that are [...] provider. Document Revised: 08/27/2022 Document Reviewed: 12/23/2021 [email or web address] Patient Education 2022 [employer]. 12/23/2023 14:47:10 Laser Therapy for Kidney Stones [...] including vitamins, herbs, eye drops, creams, and wzty-bhh-heidpvi medicines. Any problems you or family members [...] provider tells you to take them. ?Taking kmom-hfn-chrksir medicines, vitamins, herbs, and supplements. Eating and [...] provider. Document Revised: 08/27/2022 Document Reviewed: 12/23/2021 [email or web address] Patient Education 2022 [employer]. Follow Up Care 12/22/2023 08:45:54 With:VANESSA LYLES, Bryant Carlos, JAMIL Address: [facility] [address], [place] [address]- [phone] When: Unknown Comments:sched L URS/laser litho/possible stent plaement [facility] 12-23-2023 Note Patient Education Nephrology Laser Therapy [...] these instructions at home: Medicines ? Take ztzw-ixs-orxbbgv and prescription medicines only as told by [...] or treat constipation, such as: ? Take aacx-hzx-excxdfg or prescription medicines. ? Eat foods that [...] provider. Document Revised: 08/27/2022 Document Reviewed: 12/23/2021 [employer] Patient Education ? 2022 [email or web address] Laser Therapy for Kidney Stones Laser [...] including vitamins, herbs, eye drops, creams, and nvht-bmb-xbyppwb medicines. ? Any problems you or family [...] by a f (more content not included)... [facility] 08-05-2023 History of Presen t illness Narrative Subjective: Gissel Del Rosario female who is 38 y.o. female who is s/p a VYG-BIH-okvnw of adhesions, endometriosis resection on 07/06/23. Pathology: [...] 07/06/2023 Performed by Luís Andres MD at [facility] LYSIS OF ADHESIONS X 60 MIN N/A 07/06/2023 Performed by Luís Andres MD at [facility] RESECTION MASS PERITONEAL/ SOFT TISSUE MASS REMOVAL POSTERIOR RECTUS SHEATH/EXCISIONAL DEBRIDMENT N/A 07/06/2023 Performed by Abundio Flynn MD at [facility] SALPINGO OOPHORECTOMY Bilateral 07/06/2023 Performed by Luís Andres MD at [facility] ENDOMETRIAL ABLATION 2013 ESOPHAGOGASTRODUODENOSCOPY 2010 HYSTERECTOMY [...] endometriosis. Re-evaluate with our team or benign playground monitor in 6 months. May consider transdermal estrogen, [...] *This note was completed using a voice operations manager station system. Every effort was made to ensure accuracy. However, inadvertent computerized operations manager station errors may be present. .Total time spent [...] Wang 08/05/23 1126 documented in this encounter [facility] 08-03-2023 Miscellaneous Notes Spoke with patient to move up her appt on 08/05/23 to 11am, patient confirmed. documented in this encounter [facility] 08-03-2023 Telephone encounter Note Spoke with patient to move up her appt on 08/05/23 to 11am, patient confirmed. [facility] 07-30-2023 History of Presen t illness [...] questions or concerns 5) follow-up with six-month [facility] Sharda [facility] General Surgery [address] [place] [id number] SEBASTIAN Romero 07/30/23 3180 documented in this encounter [facility] 07-22-2023 History of Presen t illness Narrative Subjective: Gissel Del Rosario female who is 38 y.o. female who is s/p a FHY-TZE-ugnir of adhesions, endometriosis resection on 07/06/23. Pathology: [...] 07/06/2023 Performed by Abundio Flynn [facility] Bilateral 07/06/2023 Performed by Luís Andres MD at [facility] ENDOMETRIAL ABLATION 2014 ESOPHAGOGASTRODUODENOSCOPY 2010 HYSTERECTOMY 04/16/2015 partial LITHOTRIPSY 2013 TONSILLECTOMY 2012 Past Medical History: Diagnosis Date Anxiety Dental disease one chipped tooth, right upper very back of mouth Depression Dizziness Endometriosis GERD (gastroesophageal reflux disease) Hypertension Kidney stones Pelvic pain PONV (postoperative nausea and vomiting) Pulmonary embolism ([facility]) 11/29/2010 during Sciatica Sinus tachycardia Visual impairment [...] endometriosis. Re-evaluate with our team or benign playground monitor in 6 months. May consider transdermal estrogen, [...] *This note was completed using a voice operations manager station system. Every effort was made to ensure accuracy. However, inadvertent computerized operations manager station errors may be present. .Total time spent [...] Wang 07/22/23 0933 documented in this encounter [facility] 07-13-2023 Miscellaneous Notes Patient called in [...] scheduled for 07/21. documented in this encounter [facility] 07-13-2023 Telephone encounter Note Patient called [...] questions. Post op appt scheduled for 07/21. [facility] 06-29-2023 Instructions Formatting of th is note might be different from the original. Your surgery/procedure is scheduled at [facility] on 07/06/2023 at 10 am Arrival Time 8 am [facility] Address: [address] [place] [address] in [address] Parking lot located on [facility]. Report to the Entrance B. Check in at the information desk the surgery. The waiting room located on the second floor. If you have any questions prior to surgery, please call Pre-Admission Clinic at [phone] between 7:30 am and 4:30 pm Thursday through Thursday. If you have questions the morning of surgery, please call the Pre-op Department at [phone]. Notify your SURGEON if you develop any [...] would like to schedule therapy at a [facility] facility, please call [address] [place] [address] ([phone]). Do not use lotions, creams, powders, perfume, make up, cologne or after-shaves day of surgery. Remove ALL jewelry including wedding rings, body piercings,hair extensions that contain metal, nail colombian, make-up, and contact lens. You may brush [...] RIGHTS AND RESPONSIBILITIES As a patient at [facility], you have the right to: Receive medical care and be informed of who is taking care of you Be treated with dignity and respect Have a family member/hostess party sales representative of choice and your physician notified of your admission Receive information and actively participate in decisions about your care and treatment Refuse care, treatment and services Decide who may provide your support and speak for you Access jainism and spiritual services Participate in ethical issues [...] of hospital charges and payment methods Patient/patient hostess party sales representative responsibilities are to: Provide information about health status to facilitate care, treatment and services Follow the treatment, plan, keep appointments and speak up when you do not understand the plan Respect the rights of other patients and healthcare personnel Follow organizational rules and regulations that support quality care and a safe environment Fulfill financial obligations as promptly as possible [facility] 06-29-2023 Miscellaneous Notes Your surgery/procedure is scheduled at [facility] on 07/06/2023 at 10 am Arrival Time 8 am [facility] Address: [address] [place] [address]. [address] Parking lot located on [facility]. Report to the Entrance B. Check in at the information desk the surgery. The waiting room located on the second floor. If you have any questions prior to surgery, please call Pre-Admission Clinic at [phone] between 7:30 am and 4:30 pm Thursday through Thursday. If you have questions the morning of surgery, please call the Pre-op Department at [phone]. Notify your SURGEON if you develop any [...] would like to schedule therapy at a [facility] facility, please call [phone] ([phone]). Do not use lotions, creams, powders, perfume, make up, cologne or after-shaves day of surgery. Remove ALL jewelry including wedding rings, body piercings,hair extensions that contain metal, nail colombian, make-up, and contact lens. You may brush [...] RIGHTS AND RESPONSIBILITIES As a patient at [facility], you have the right to: Receive medical care and be informed of who is taking care of you Be treated with dignity and respect Have a family member/hostess party sales representative of choice and your physician notified of your admission Receive information and actively participate in decisions about your care and treatment Refuse care, treatment and services Decide who may provide your support and speak for you Access jainism and spiritual services Participate in ethical issues [...] of hospital charges and payment methods Patient/patient hostess party sales representative responsibilities are to: Provide information [...] promptly as possible documented in this encounter [facility] 06-17-2023 History of Presen t illness [...] personal or family history of GI or ict security specialist malignancies. We reviewed her imaging as well [...] procedures Referring and communicating with other health school child care attendant (not separately reported) Documenting clinical information in the electronic or other health record Luís Andres MD documented in this encounter [facility] 06-11-2023 History of Presen t illness Narrative Associated Problem(s): Sinus tachycardia Symptoms stable with toprol and continue. 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 Associated Problem(s): Benign essential hypertension (CMS/HCC) BP remains low and stop zestoretic. Start lisinopril daily and monitor BP. Subjective Patient ID: Gissel Del Rosario is a 37 y.o. female who presents for Follow-up (1m). Follow up HTN, tachycardia, and abdominal mass. Patient continues to have abdominal pain. Seen by ict security specialist and felt mass related to endometriosis in [...] scar Continued pain and follow up with ict security specialist for surgery. documented in this encounter [facility] 06-03-2023 History of Presen t [...] personal or family history of GI or ict security specialist malignancies. We reviewed her imaging as well [...] procedures Referring and communicating with other health school child care attendant (not separately reported) Documenting clinical information in the electronic or other health record Luís Andres MD documented in this encounter [facility] 05-20-2023 Miscellaneous Notes Left VM to schedule EDUCATION INTERN appointment with ict security specialist onc. Requested US and CT images be pushed via PACS from [employer] documented in this encounter [facility] 05-20-2023 Telephone encounter Note Left VM to schedule EDUCATION INTERN appointment with ict security specialist onc. Requested US and CT images be pushed via PACS from [employer] [facility] 04-08-2023 History of Presen t illness [...] was negative but is to see a regional airline pilot to further work this up as well. Jeremy Jang MD documented in this encounter [facility] Work Phone: 03-24-2023 History of [...] hernia specialists. --I will discuss with her playground monitor the value of abdominal exploration for additional [...] MPH @TIMECUR@ @DATECUR@ documented in this encounter [facility] Work Phone: 09-05-2022 Evaluation note [...] understanding and is agreeable with treatment plan. [employer] Other [id number] NotePROCEDURE: XR PELVIS W_OBL MIN 3 VIEWS COMPARISON: HISTORY: Disorder of sacrum FINDINGS: BONES:No fracture, acute abnormality, or significant arthropathy. SOFT TISSUES:Negative. No visible soft tissue swelling. EFFUSION:None visible. OTHER: Negative. IMPRESSION: No acute abnormality Electronically authenticated by: ASHLEY CARRANZA Date: 2021-09-28 07:58[facility]05-28-2022 NotePROCEDURE: XR TIB_FIB LT 2V COMPARISON: 07/17/2020 HISTORY: Pain in left leg FINDINGS: BONES:No acute fracture or dislocation. Stable sclerosis along the distal tibia. Enthesopathic spurring plantar calcaneus SOFT TISSUES:Negative. No visible soft tissue swelling. EFFUSION:None visible. OTHER: Negative. IMPRESSION: Stable exam, no interval change Electronically authenticated by: ASHLEY CARRANZA Date: 2021-09-28 07:56[facility] No data available for this section 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 Endometriosis in scar of skin Pelvic pain [facility] Diagnosis Benign essential hypertension (CMS/HCC)- Primary Essential hypertension, benign Sinus tachycardia Other specified cardiac dysrhythmias 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 Endometriosis in scar of skin [facility] Pelvic mass- Primary Abdominal or pelvic swelling, mass or lump, unspecified site [facility] Diagnosis Preop testing- Primary Unspecified pre-operative examination [facility] Diagnosis Encounter for postoperative care- Primary Menopausal symptoms Symptomatic menopausal or female climacteric states Acute serous otitis media, recurrence not specified, unspecified laterality [facility]* Diagnosis Muscle spasms of both lower extremities- Primary [facility]* Diagnosis Abdominal wall mass- Primary Abdominal or pelvic swelling, mass or lump, unspecified site [facility]* Diagnosis Encounter for postoperative care- Primary Menopausal symptoms Symptomatic menopausal or female climacteric states [facility] Narrative - Reported* Type Description Date Medical History HTN (hypertension) Medical History Anxiety and depression Medical History migraine headache Medical History seasonal allergies Surgical History essure Surgical History EGD Surgical History C section Surgical History hysterectomy 2015 Hospitalization History PE Hospitalization History child x3 Hospitalization History demise x1 [employer] Other InstructionsNot on filedocumented in this encounter [facility]Not on filedocumented in this encounter [facility] [...] available for this section [facility] Reason for referral (narrative)* Consultation (Routine) - Pending Review Specialty Diagnoses / Procedures Referred By Frankie salmon Referred To Contact General Surgery Diagnoses Pelvic mass Luís Andres MD [address] [facility], [address] [place] [address] Abundio Flynn MD [address] [facility] [place] [address] Referral ID Status Reason Start Date Expiration Date Visits Requested Visits Authorized [id number] Pending Review Specialty Services Required 06/17/2023 06/16/2024 1 1 [facility] Summary Purpose Family History No Family [...] pelvis without contrast Luís Andres MD [address] [facility] [address], [address] [place] [address] Referral ID Status Reason Start Date Expiration Date V isits Requested Visits Authorized [id number] Pending Review 06/03/2023 06/02/2024 1 1 Additional Source Comments INFORMATION SOURCE (unrecogn ized section and content) DATE CREATED AUTHOR 05/01/2022 [facility] DATE CREATED AUTHOR AUTHOR'S ORGANIZ ATION 08/10/2022 [facility] DATE CREATED AUTHOR AUTHOR'S ORGANIZ ATION 03/26/2023 [facility] DATE CREATED AUTHOR AUTHOR'S ORGANIZ ATION 05/24/2023 [facility] DATE CREATED AUTHOR AUTHOR'S ORGANIZ ATION 06/13/2023 [facility] DATE CREATED AUTHOR AUTHOR'S ORGANIZ ATION 06/18/2023 [facility] DATE CREATED AUTHOR AUTHOR'S ORGANIZ ATION 09/27/2023 [facility] DATE CREATED AUTHOR AUTHOR'S ORGANIZ ATION 01/07/2024 [facility] DATE CREATED AUTHOR AUTHOR'S ORGANIZ ATION 01/14/2024 [facility] REASON FOR VISIT (unrecogniz ed section and content) Reason Comments New Patient Visit Reason Comments Endometriosis Specialty Diagnoses / Procedures Referred By Contchacorta t Referred To Contact General Surgery Diagnoses Endometrioma Vu Juarez MD [facility] [address] [facility] Department of Surgery[place] [address] [place] [address] [facility] Department [place] [address] Referral ID Status Reason Start Date Expiration Date Visits Requested Visits Authorized [id number] Authorized Specialty Services Required 3 03/30/2024 1 [...] Care Teams (unrecognized sec tion and content) Finance Clerk Relationship Specialty Start Date End Date Joseph Sotelo MD PCP - General Family Medicine 03/18/23 Finance Clerk Relationship Specialty Start Date End Date Joseph Sotelo MD [address] [facility] [place] [address] PCP - General Family Medicine 04/02/23 Finance Clerk Relationship Specialty Start Date End Date Joseph Sotelo MD [address] [place] [address] PCP - General 01/29/17 Finance Clerk Relationship Specialty Start Date End Date Joseph Sotelo MD [address] [place] [address] PCP - General 01/29/17 Finance Clerk Relationship Specialty Start Date End Date Joseph Sotelo MD PCP - General Cardiology 10/15/22 Finance Clerk Relationship Specialty Start Date End Date Joseph Sotelo MD PCP - General Cardiology 10/15/22 Finance Clerk Relationship Specialty Start Date End Date Joseph Sotelo MD [address] [facility] [place] [address] PCP - General 01/29/17 Finance Clerk Relationship Specialty Start Date End Date Joseph Sotelo MD [address] [place] [address] PCP - General 01/29/17 Finance Clerk Relationship Specialty Start Date End Date Joseph Sotelo MD [address] [place] [address] PCP - General 01/29/17 Finance Clerk Relationship Specialty Start Date End Date Joseph Sotelo MD [address] [place] [address] PCP General 01/29/17 Finance Clerk Relationship Specialty Start Date End Date Joseph Sotelo MD [address] [place] [address] PCP - General 01/29/17 Finance Clerk Relationship Specialty Start Date End Date Joseph Sotelo MD [address] [place] [address] PCP - General 01/29/17 Finance Clerk Relationship Specialty Start Date End Date Joseph Sotelo MD [address] [place] [address] PCP - General 01/29/17 Finance Clerk Relationship Specialty Start Date End Date Joseph Sotelo MD [address] [place] [address] PCP General 01/29/17 Finance Clerk Relationship Specialty Start Date End Date Joseph Sotelo MD [address] [place] [address] PCP General 01/29/17 FOR RECORDS PERTAINING TO [...] BE BASED ON THE PRIMARY CLINICAL RECORDS. [employer] [facility]. provides no warranty or guarantee of the accuracy or completeness of information in this document.
[2024-03-05 08:20] LABS: Calcium 8.1 mg/dL (8.5-10.1); Carbon Dioxide 27.6 mmol/L (21.0-32.0); Chloride 109 mmol/L (98-107); Estimated GFR (African America >60 (>=60 mL/min/1.73m^2); Estimated GFR (Non-African Ame >60 (>=60 mL/min/1.73m^2); Phosphorus 3.7 mg/dL (2.6-4.7); Sodium 145 mmol/L (136-145); Uric Acid 4.3 mg/dL (2.6-6.0)
[2024-03-05 09:59] LABS: Calcium Urine Random 13.7 mg/dL (5.1-21.0); Creatinine Urine Random 89.82 mg/dL (20.00-300.00); Sodium Urine Random 78 mmol/L (30-90)
[2024-03-05 12:37] LABS: Calcium 24 Hour Urine 178.1 mg/24hr (100.0-300.0); Creatinine 24 Hour Urine 1167.66 mg/24 hr (800.00-1800.00); Sodium 24 Hour Urine 101 mmol/24h (40-220); Total Volume 24 Hour Urine 1300 mL/24hr
[2024-03-06 10:08] LABS: Magnesium, U 9.6 mg/dL (Not Estab.); Magnesium,Urine 24hr 124.8 mg/24 hr (12.0-293.0); Phosphorus, Urine 48.7 mg/dL (Not Estab.); Phosphorus,Urine 24h 633 mg/24 hr (261-1078)
[2024-03-07 11:09] LABS: PTH, Intact 29 pg/mL (15-65)
[2024-03-07 14:10] LABS: Citric Acid, U, 24hr 257 mg/24 hr (320-1240); Citric Acid, Urine 198 mg/L (Undefined); Oxalates, Urine 19 mg/L (Undefined); Oxalates, Urine 24hr 25 mg/24 hr (4-31)
== END 2024-03-05 07:18 | disposition home or self-care (01) ==
LOC: LAB 07:17
PROVIDERS: PCP Family Medicine; Visit Provider Urology
DX: N20.0 Calculus of kidney (principal)
CPT/HCPCS: 36415; 81050; 82310; 82340; 82374; 82435; 82507; 82565; 82570; 83735; 83945; 83970; 84100; 84105; 84295; 84300; 84520; 84550; 84560

== ENCOUNTER 2024-06-02 09:10 | Outpatient (OUT) | payer BC, SELFPAY ==
--- OUTSIDE RECORDS SUMMARY | 2024-06-02 09:15 | XMS_ITS | CCD ---
Author Organization [facility] Care Team Providers Care Hand Etcher Helper Name Role Phone JOSEPH SOTELO Primary Care [...] Unavailable ZIEBER, DR BRIAN Carlos Consulting Unavailable FAWSHAIKH Neema PENNINGTON Consulting Unavailable TOMI, H Admitting Unavailable NADERER, [...] ALLIE Carlos Attending Unavailable NICHOLE, DR ALLIE Carols Consulting Unavailable NICHOLE, DR ALLIE Carlos Admitting [...] Provider Joseph Sotelo MD Primary Care Provider JOSEPH SOTELO Referring Unavailable NADERER, JOSEPH Primary Care Unavailable NADERER, JOSEPH Referring Unavailable NADERER, JOSEPH Primary Care Unavailable Joseph Sotelo MD Primary Care Provider [phone] LUÍS ANDRES Attending Unavailable NADERER, JOSEPH Referring Unavailable NADERER, JOSEPH Primary Care Unavailable LUÍS ANDRES Attending Unavailable NADERER, JOSEPH Referring Unavailable NADERER, JOSEPH Primary Care Unavailable CARROLLDAYANARA SARABIA Attending Unavailable NADERER, JOSEPH Referring Unavailable NADERER, JOSEPH Primary Care Unavailable CARROLLDAYANARA SARABIA Attending Unavailable NADERER, JOSEPH Referring Unavailable NADERER, JOSEPH Primary Care Unavailable LUÍS ANDRES Attending Unavailable LUÍS ANDRES Referring Unavailable NADERER, JOSEPH Primary Care Unavailable LUÍS ANDRES Referring Unavailable NADERER, JOSEPH Primary Care Unavailable CARROLLDAYANARA SARABIA Referring Unavailable NADERER, JOSEPH Primary Care Unavailable DAYANARA CARROLL Attending Unavailable NONE, XXXX Primary Care Physician Unavailab LUÍS Abel Admitting Unavailable LUÍS ANDRES Attending Unavailable LUÍS ANDRES Referring Unavailable NADERER, JOSEPH Primary Care Unavailable ELSI RICK Attending Unavailable NADERER, JOSEPH Primary Care Unavailable NADERER, JOSEPH Referring Unavailable NADERER, JOSEPH Primary Care Unavailable KHAI ROBIN Attending Unavailable NADERER, JOSEPH Referring Unavailable NADERER, JOSEPH Primary Care Unavailable ABUNDIO FLYNN Attending Unavailable NADERER, JOSEPH Referring Unavailable NADERER, JOSEPH Primary Care Unavailable Bryant IGLESIAS Attending Unavailable Bryant IGLESIAS Attending Unavailable Bryant IGLESIAS Attending Unavailable Joseph Sotelo MD Unavailable Joseph Sotelo MD Primary Care Provider JOSEPH SOTELO Attending Unavailable ASHLEIGH, JOSEPH Attending Unavailable Allergies Allergy Classification Reported Allergen(s) Allergy Type Date of Onset Reaction(s) Facility (2 sources) Solifenacin Drug Allergy 05-31-2024 [facility] Medications Current Medications Medication Drug Class(es) Dates Sig (Normalized) Sig (Original) acetaminophen 500 mg oral tablet (12 sources) Start: 07-07-2023 take 2 tablets by mouth every eight hours as needed for pain and pain acetaminophen (Tylenol) 500 MG tablet Take 1,000 mg by mouth every 8 (eight) hours if needed for mild pain or moderate pain 07/07/2023 Active acetaminophen 325 mg / butalbital 50 mg / caffeine 40 mg oral tablet (15 sources) Barbiturate, Central Nervous System Stimulant, Methylxanthine Start: 03-28-2024 take 1 tablet by mouth four times daily as needed for headache butalbital-acetami nophen-caffeine 50-325-40 MG tablet Indications: Migraine without aura and without status migrainosus, not intractable (CMS/HCC) Take 1 tablet by mouth 4 (four) times a day as needed for headaches 60 tablet 2 03/28/2024 Active Start: 09-16-2018 butalbital-jarocho taminophen-caff (FIORICET, ESGIC) 50-325-40 mg per tablet Start: 07-04-2014 Fioricet 325 m g-50 mg-40 mg Tab 1 tab(s), Oral, as needed for pain, Refill(s) 0 Start Date: 07/04/14 Status: Ordered acetaminophen 325 mg / HYDROcodone bitartrate 5 mg oral tablet (13 sources) Opioid Agonist Start: 02-24-2023 take 1 tablet by mouth every six hours HYDROcodone-acetaminophen ([place]) 5-325 MG tablet Take 1 tablet by mouth every 6 (six) hours. 02/24/2023 Active amoxicillin 875 mg / clavulanate [...] 08/01/2023 Active apixaban 2.5 mg oral tablet (10 sources) Factor Xa Inhibitor Start: 07-07-2023 End: 05-31-2024 take 1 tablet by mouth in the morning apixaban (Eliquis) 2.5 MG tablet Take 2.5 mg by mouth in the morning and 2.5 mg in the evening. 07/07/2023 05/31/2024 Discontinued Baclofen (14 sources) gamma-Aminobutyri c Acid-ergic Agonist [...] cefdinir Oral Start Date: 12/23/23 Status: Ordered cephalexin 500 mg oral capsule (1 source) Cephalosporin Antibacterial Start: 12-21-2023 take 1 capsule by mouth three times daily cephalexin (Keflex) 500 MG capsule TAKE 1 CAPSULE BY MOUTH THREE TIMES DAILY FOR 7 DAYS 12/21/2023 Active cholecalciferol 0.05 mg oral tablet (20 sources) Vitamin D Start: 02-05-2023 take 1 tablet by mouth in the morning cholecalciferol (Vitamin D-3) 50 MCG (2000 UT) tablet Take 1 tablet by mouth in the morning. 02/05/2023 Active Start: 02-05-2023 cholecalcifero l, vitamin D3, 2,000 units tablet docusate sodium 100 mg oral capsule (6 sources) Start: 03-10-2023 take 1 capsule by mouth twice daily for constipation docusate sodium (COLACE) 100 mg capsule take 1 capsule by mouth twice a day if needed for constipation up to 10 days 0 03/10/2023 Active docusate sodium 50 mg / sennosides, alf 8.6 mg oral tablet (6 sources) Start: 07-07-2023 take 1 tablet by mouth once as needed sennosides-docusa te sodium (SENOKOT-S) 8.6-50 mg Take 1 tablet by mouth every 12 (twelve) hours as needed for constipation. 60 tablet 0 07/07/2023 Active DULoxetine 60 mg delayed release oral capsule (20 sources) Serotonin and Norepinephrine Reuptake Inhibitor Start: 03-14-2024 DULoxetine (Cymbalta) [address] capsule Indications: Major depressive disorder, recurrent episode, mild (HCC) (CMS/HCC) TAKE 1 CAPSULE TWICE A DAY 180 capsule 3 03/14/2024 Active Start: 12-23-2023 take 1 capsule by mo [facility] once daily duloxetine 60 mg oral delayed release capsule 60 mg = 1 cap(s), Oral, Daily Start Date: 12/23/23 Status: Ordered Start: 01-28-2021 DULoxetine (CY MBALTA) 60 mg capsule Indications: Major depressive disorder, recurrent episode, moderate (CMS-HCC) TAKE 2 CAPSULES DAILY 180 capsule 3 01/28/2021 Active Cymbalta Active ibuprofen 800 mg oral tablet (16 sources) Nonsteroidal Anti-inflammatory Drug Start: 07-07-2023 take 1 tablet by mouth every eight hours as needed for pain and pain ibuprofen 800 MG tablet Take 800 mg by mouth every 8 (eight) hours if needed for mild pain or moderate pain 07/07/2023 Active Start: 03-09-2023 take 1 tablet [...] Status: Ordered lisinopril 10 mg oral tablet (16 sources) Angiotensin Converting Enzyme Inhibitor Start: 12-02-2023 End: 12-01-2024 take 1 tablet by mouth in the morning lisinopril 10 MG tablet Indications: Benign essential hypertension (CMS/HCC) Take 1 tablet (10 mg) by mouth in the morning. 90 tablet 3 12/02/2023 12/01/2024 Active Start: 06-11-2023 take 1 tablet by rosa th in the morning lisinopriL (PRINIVIL,ZESTRIL) 10 mg [...] succinate 25 mg extended release oral tablet (20 sources) beta-Adrenergic Fredi Start: 024 take 1 tablet by mouth once daily metoprolol succinate 25 mg ER Tab 25 mg = 1 tab(s), Oral, Daily Start Date: 12/23/23 Status: Ordered Start: 12-02-2023 End: 12-01-2024 take 1 tablet by mouth every twenty-four hours in the morning metoprolol succinate XL (Toprol-XL) 25 MG 24 hr tablet Indications: Sinus tachycardia Take 1 tablet (25 mg) by mouth in the morning. 90 tablet 3 12/02/2023 12/01/2024 Active Start: 05-06-2023 take 1 tablet by rosa every twenty-four hours in the morning metoprolol succinate XL (TOPROL XL) 25 mg 24 hr tablet Take 1 tablet (25 mg total) by mouth in the morning. Sinus tachycardia. 0 05/06/2023 Active 24 hr mirabegron 50 mg extended release oral tablet (2 sources) beta3-Adrenergic Agonist Start: 12-30-2023 take 1 tablet by mouth once daily, then take 1 tablet by mouth every twenty-four hours mirabegron ER (Myrbetriq) 50 MG 24 hr tablet Take 50 mg by mouth Daily 12/30/2023 Active omeprazole 40 mg delayed release oral capsule (20 sources) Proton Pump Inhibitor Start: 10-28-2023 omeprazole (PriLOSEC) [address] capsule Indications: Gastroesophageal reflux disease with esophagitis, unspecified whether hemorrhage TAKE 1 CAPSULE DAILY 90 capsule 3 10/28/2023 Active Start: 01-13-2015 take 1 capsule by mo [facility] once daily before breakfast omeprazole (PriLOSEC) 40 mg capsule Indications: gastroesophageal reflux disease Take 1 capsule (40 mg total) by mouth every morning before breakfast Indications: gastroesophageal reflux disease. 0 07/13/2017 Active Omeprazole Activ e ondansetron 4 mg oral tablet (13 sources) Serotonin-3 Receptor Antagonist Start: 12-23-2023 take 1 mg by mouth every eight hours Zofran 4 mg Tab mg tab(s), Oral, q8hr, Refills(s) 0 Start Date: 12/23/23 Status: Ordered Start: 12-21-2023 ondansetron OD T (Zofran-ODT) 4 MG disintegrating tablet DISSOLVE 1 TABLET ON THE TONGUE EVERY 6 HOURS NEEDED FOR NAUSEA OR VOMITING 12/21/2023 Active Start: 02-24-2023 take 1 tablet by rosa [...] (Therapy completed) OXcarbazepine 300 mg oral tablet (16 sources) Anti-epileptic Agent Start: 09-14-2023 OXcarbaze pine (Trileptal) 300 MG tablet Indications: Major depressive disorder, recurrent episode, mild (HCC) (CMS/HCC) TAKE 1 TABLET TWICE A DAY 180 tablet 3 09/14/2023 Active Start: 03-15-2023 take 1 tablet by rosa [...] mg/3 mL) pen injector (2 sources) Start: 03-09-20 23 Ozempic 0.25 mg or 0.5 mg (2 mg/3 mL) pen injector OZEMPIC 0.25 mg or 0.5 mg (2 mg/3 mL) pen injector (4 sources) Start: 03-09-20 OZEMPIC 0.25 mg or 0.5 mg (2 mg/3 mL) pen injector Ozempic, 0.25 or 0.5 MG/DOSE, 2 MG/3ML solution pen-injector (4 sources) Start: 03-03-20 inject 0.5 mg by subcutaneous injection every week Ozempic, 0.25 or 0.5 MG/DOSE, 2 MG/3ML solution pen-injector Indications: Morbid obesity (CMS/HCC) INJECT 0.5 MG UNDER THE SKIN ONCE WEEKLY 9 mL 3 03/03/2024 Active polyethylene glycol 3350 64992 mg powder for oral solution (20 sources) Osmotic Laxative take 17 g by mouth once polyethylene glycol, PEG, 3350 (Miralax) 17 g packet Take 17 g by mouth 1 (one) time Active potassium bicarbonate 20 meq effervescent oral tablet (2 sources) Start: 03-11-20 Effer-K 20 MEQ effervescent tablet 03/11/2024 Active predniSONE 50 mg oral tablet (2 sources) Start: 05-31-19 End: 06-06-19 take 1 tablet by mouth once daily predniSONE (Deltasone) 50 MG tablet Indications: Left lateral epicondylitis Take 1 tablet (50 mg) by mouth Daily for 6 days 6 tablet 05/31/2024 06/06/2024 Active promethazine hydrochloride 50 mg oral tablet (20 sources) Phenothiazine Start: 03-28-20 take 1 tablet by mouth every six hours for nausea promethazine (Phenergan) 50 MG tablet Indications: Nausea and vomiting, unspecified vomiting type Take 1 tablet (50 mg) by mouth every 6 (six) hours if needed for nausea or vomiting 30 tablet 1 03/28/2024 Active Start: 05-25-2023 End: 08-23-2023 take 0.5 tablet [...] 1.5 ml semaglutide 1.34 mg/ml pen injector (9 sources) Start: 06-13-2022 inject 0.25 mg by subcutaneous injection every week Ozempic, 0.25 or 0.5 MG/DOSE, 2 MG/1.5ML solution pen-injector Inject 0.25 mg under the skin 1 (one) time per week. 06/13/2022 Active tamsulosin hydrochloride 0.4 mg oral capsule (4 sources) alpha-Adrener gic Fredi Start: 12-21-2023 tamsulosin (Flomax) 0.4 MG 24 hr capsule 12/21/2023 Active topiramate 50 mg oral tablet (20 sources) Start: 12-16-2023 topiramate 50 MG tablet Indications: Chronic migraine without aura without status migrainosus, not intractable (CMS/HCC) TAKE 1 TABLET TWICE A DAY 180 tablet 3 12/16/2023 Active Start: 11-01-2018 take 1 tablet by rosa [...] unspecified] Onset: 8 07-16-2017 Chronic Anxiety disorders (20 sources) Generalized anxiety disorder; Translations: [Generalized anxiety [...] colic; Translations: [Ureteric stone] Onset: 3 Episodic Endometriosis (20 sources) Endometriosis (clinical); Translations: [Endometrioma] Onset: 3 Resolved: 4 03-25-2023 Chronic Endometriosis (2 sources) Endometriosis; Translations: [Deep endometriosis of ovary, unspecified ovary] Onset: 3 Esophageal disorders (13 sources) Gastroesophageal reflux disease; Translations: [GERD (gastroesophageal reflux disease)] Onset: 5 03-24-2023 Chronic Essential hypertension (15 sources) Essential (primary) hypertension; Translations: [Benign essential hypertension] Onset: 5 03-24-2023 Chronic Gastrointestinal hemorrhage (1 source) Rectal hemorrhage; Translations: [Rectal bleed] Episodic Headache; including migraine (9 sources) Chronic migraine without aura; Translations: [Chronic migraine without aura, not intractable, without status migrainosus] Onset: 3 04-08-2023 Chronic Menopausal disorders (3 sources) Menopausal symptom; Translations: [Menopausal and female climacteric states] Onset: 4 07-22-2023 Chronic Mood disorders (20 sources) Recurrent major depressive episodes, moderate ; Translations: [Major depressive disorder, recurrent, moderate] Onset: 8 03-24-2023 Chronic Nutritional deficiencies (9 sources) Vitamin D deficiency; Translations: [Vitamin D [...] Translations: [Other muscle spasm] 07-27-2023 Episodic Other connective tissue disease (4 sources) Lateral epicondylitis of left humerus; Translations: [Lateral epicondylitis, left elbow] Onset: 5 05-31-2024 Episodic Other eye disorders (1 source) Other specified disorders of eye and adnexa Episodic Other female genital disorders (11 sources) Abnormal uterine bleeding; Translations: [Other specified abnormal uterine and vaginal bleeding] Onset: 3 03-24-2023 Chronic Other gastrointestinal disorders (1 source) Irritable bowel syndrome; Translations: [IBS (irritable bowel syndrome)] Chronic Other gastrointestinal disorders (1 source) Constipation; Translations: [Constipation] Episodic Other gastrointestinal disorders (1 source) Diarrhea; Translations: [Diarrhea] Episodic Other nutritional; endocrine; and metabolic disorders (9 sources) Metabolic syndrome X; Translations: [Metabolic syndrome] Onset: 3 04-08-2023 Chronic Other nutritional; endocrine; and metabolic disorders (10 sources) Morbid obesity; Translations: [Morbid (severe) obesity [...] Spondylosis; intervertebral disc disorders; other back problems (9 sources) Degeneration of lumbar intervertebral disc; Translations: [...] Onset: 06-04-2023 Resolved: 07-22-2023 06-04-2023 Episodic Asthma (11 sources) Asthma; Translations: [Unspecified asthma, uncomplicated] Onset: 10-10-2022 Resolved: 04-08-2023 03-24-2023 Chronic Cardiac dysrhythmias (11 sources) Sinus tachycardia; Translations: [Tachycardia, unspecified] Onset: 04-08-2023 05-06-2023 Episodic Diseases of white blood cells (9 sources) Leukocytosis; Translations: [Elevated white blood cell count, unspecified] Onset: 10-10-2022 Resolved: 04-08-2023 04-08-2023 Chronic Fluid and electrolyte disorders (9 sources) Hypokalemia; Translations: [Hypokalemia] Onset: 04-08-2023 04-08-2023 Episodic Genitourinary symptoms and ill-defined conditions (2 sources) [...] [Other acute postprocedural pain] Onset: 07-06-2023 Episodic Other non-traumatic joint disorders (9 sources) Joint pain; Translations: [Pain in unspecified joint] Onset: 04-08-2023 04-08-2023 Episodic Phlebitis; thrombophlebitis and thromboembolism (11 sources) History of thromboembolism of vein; Translations: [...] Results Test Name Value Interpretation Reference Range Facility ALL BUNon 03-05-2024 Urea nitrogen [Mass/Vol] 14 mg/dL 7.0 - 18.0 mg/dL [facility] ALL CARBON DIOXIDEon 024 CO2 [Moles/Vol] 27.6 mmol/L 21.0 - 32.0 mmol/L [facility] ALL CHLORIDEon 03-05-2024 Chloride [Moles/Vol] 109 mmol/L High 98 - 10 7 mmol/L [facility] ALL PHOSPHOROUSon 03-05-2024 Phosphate [Mass/Vol] 3.7 mg/dL 2.6 - 4 .7 mg/dL [facility] ALL SODIUMon 03-05-2024 Sodium [Moles/Vol] 145 mmol/L 136 - 145 mmol/L [facility] ALL URIC ACIDon 03-05-2024 Urate [Mass/Vol] 4.3 mg/dL 2.6 - 6.0 mg/dL [facility] CALCIUMon 03-05-2024 Calcium [Mass/Vol] 8.1 mg/dL Low 8.5 - 10. 1 mg/dL [facility] No Panel Informationon 03-05 Interpretation and review of laboratory results Abnormal [facility] CREATININEon 03-05-2024 Creatinine [Mass/Vol] 0.97 mg/dL 0.55 - 1.02 mg/dL [facility] GFR/1.73 sq M.predicted CKD-EPI (S/P/Bld) [Vol rate/Area] >60 >=60 mL/min/1.73m 2 [facility] TB EGFR-NON AF IRANIAN >60 >=60 mL/min/1.73m 2 [facility] APTTon 12-24-2023 aPTT Coag (Bld) [Time] 31.[address] [facility] No Panel Informationon 12-23 [facility] SRMCOH PROTHROMBIN TIME INR W/O COUMon 12-24-2023 PT Coag (PPP) [Time] 10.5 s [facility] INR 0.99 [facility] Comment on above: DESIRED INR: 2.0-3.0 CONDITIONS NOT LISTED BELOW 2.5-3.5 FOR PROSTHETIC HEART VALVE REPLACEMENT 2.5-3.5 RECURRENT THROMBOSIS URINE CULTURE, ROUTINEon Bacteria identified Cx Nom (U) Urine Culture, Routine [facility] Bacteria identified Cx Nom (U) Mixed urogenital jack [facility] Bacteria identified Cx Nom (U) 25,000-50,000 colony forming units per mL [facility] Bacteria identified Cx Nom (U) [facility]formed at: [facility] Bacteria identified Cx Nom (U) [address] [place] [address] [phone] [facility] Bacteria identified Cx Nom (U) Corporate Librarian: Armand Samuels PhD, Phone: [phone] [facility] Ambulatory Visit Summaryon 0 12-23-2023 Ambulatory Visit Summary Ambulatory Visit Summary GISSEL DEL ROSARIO :1985 Visit Date:12/23/2023 Ambulatory Visit Instructions Your Diagnosis Kidney stones Left ureteral stone Flank pain Your Care Team Attending Physician - VANESSA LYLES, Bryant Carlos Primary Care Physician - NONE, XXXX This Is Your Medications List Contact prescribing physician if questions or concerns APAP/butalbital/caff eine (Fioricet 325 mg-50 mg-40 mg Tab) amoxicillin [...] Procedures Performed tonsillectomy (07/13/2014), Colonoscopy, Endometrial ablation, Esophagogastroduoden oscopy, Hysterectomy, Tubal ligation. Discharge Vitals Heart Rate (Peripheral) 84 Respiratory Rate 16 Blood Pressure 144/104 Height 153 cm Height 60 in Weight 70.0 kg Weight 154 lb BMI 29.9 What to do next You Need to Schedule the Following Appointments Follow Up with VANESSA LYLES, FRANK Salazar When: Comments: saeid L URS/laser litho/possible stent plaement Where: [facility] [address], [place] [id number]- [phone] Medications What How Much When Instructions Unchanged [...] these instructions at home: Medicines ? Take [id number] and prescription medicines only as told by your health care provider. ? If you were prescribed an antibiotic medicine, take it as told by your health care provider. Do not stop taking the antibiotic even if you start to feel better. ? As (more content not included)... Normal [facility] Urology Office/Clinic Noteon 12-23-2023 Urology Office/Clinic Note Urology Office/Clinic Note Chief Complaint NEW PT. hospital follow up HPI Staff New Pt. Pt was seen at [facility] due to abdominal pain. KUB [...] female new pt here for f/u to [facility] ER visit due to kidney stones.. 1. Kidney stones (N20.0: Calculus of kidney) Hx of kidney stones, never required intervention. Saw Dr. Briones, urologist in [place], in the past. CT AP wo con [...] URL [facility] [address], [place] [address]- [phone] Additional Instructions: sched L URS/laser litho/possible stent plaement Patient Education Laser Therapy for Kidney Stones, Care After Laser Therapy for Kidney Stones ITia, personally scribed for Dr. Iglesias on 12/23/2023 14:51:27. . Documentation recorded by the scribeTia, accurately reflects the services(s) I performed and decisions made by me. Authenticated by Dr. Iglesias on 12/23/2023 14:57:37. Problem List/Past Medical History Ongoing Acid reflux -JUN-2014 16:59:21<$> ADHD Arthritis Chronic tonsillitis Depression Extreme obesity Flank pain HTN - Hypertension Kidney stones Left ureteral (more content not included)... Normal [facility] Comment on above: Result Comment: Elec tronically Signed By: Bryant IGLESIAS MD\.br\Date and Time Signed: 12/23/23 14:57 EDT\.br\Electronically Co-Signed By: Tia Quezada\.br\Date and Time Co-Signed: 12/23/23 14:52 EDT XR FEMUR LT 2+ VIEWSon 09-25 XR FEMUR LT 2+ VIEWS XR FEMUR LT 2+ VIEW S XR FEMUR LT 2+ VIEWS Clinical history:Left leg pain Comparison: None. Findings: No acute process fracture or dislocation. There is normal alignment and mineralization. Concern for occult process consider bone scan. Impression: No acute process with fairly unremarkable appearance of the left femur. Finalized by Solomon Roberson MD on 09/26/2023 9:30 AM Normal [facility] XR HIP LT 2-3 VIEWS W OR [...] Menchaca MD on 09/26/2023 6:59 PM Normal [facility] BASIC METABOLIC PANLon 07-05 Anion gap [Moles/Vol] 7 mmol/L Normal 5-15 [facility] Comment on above: Performed By: #### B ZAIN CBCA #### [facility] ([id number]) [address] [place] [address] Calcium [Mass/Vol] 7.8 mg/dL Low 8.5-10.5 [facility] Comment on above: Performed By: #### B ZAIN CBCA #### [facility] ([id number]) [address] [place] [address] Chloride [Moles/Vol] 111 mmol/L High 98-109 [facility] Comment on above: Performed By: #### B ZAIN CBCA #### [facility] ([id number]) [address] [place] [address] CO2 [Moles/Vol] 22 mmol/L Normal 22-32 [facility] Comment on above: Performed By: #### B MP, CBCA #### [facility] ([id number]) [address] [place] [address] Creatinine [Mass/Vol] 0.62 mg/dL Normal 0.40-1.00 [facility] Comment on above: Result Comment: METH OD TRACEABLE TO IDMS STANDARD Performed By: #### B ZAIN CBCA #### [facility] ([id number]) [address] [place] [address] eGFR (CKD-EPI) NON-RACE DEPENDENT >90 Normal >59 [facility] Comment on above: Result Comment: Reported eGFR is based on the CKD-EPI 2020 equation that does not use a race coefficient. Performed By: #### B ZAIN CBCA #### [facility] ([id number]) [address] [address] Glucose [Mass/Vol] 118 mg/dL High 65-99 [facility] Comment on above: Performed By: #### B ZAIN CBCA #### [facility] ([id number]) [address] [place] [address] Potassium [Moles/Vol] 3.6 mmol/L Normal 3.5-5.0 [facility] Comment on above: Performed By: #### B ZAIN CBCA #### [facility] ([id number]) [address] [place] [address] Sodium [Moles/Vol] 140 mmol/L Normal 134-146 [facility] Comment on above: Performed By: #### B ZAIN CBCA #### [facility] ([id number]) [address] [address] Urea nitrogen [Mass/Vol] 10 mg/dL Normal 5-23 [facility] Comment on above: Performed By: #### B ZAIN, CBCA #### [facility] ([id number]) [address] [place] [address] CBC AND AUTO DIFFon 07-06-19 ABSOLUTE BASOPHIL 0.0 X10E9/L Normal 0.0-0.2 [facility] Comment on above: Performed By: #### B ZAIN CBCA #### [facility] ([id number]) [address] [place] [address] ABSOLUTE NEUTROPHIL 12.5 X10E9/L High 1.5-6.6 [facility] Comment on above: Performed By: #### B ZAIN, CBCA #### [facility] ([id number]) [address], [facility] [facility] [address] [place] [address] Basophils/100 WBC (Bld) 0.1 % Normal [facility] Comment on above: Performed By: #### B ZAIN CBCA #### [facility] ([id number]) [address] [address] [place] [address] Eosinophils (Bld) [#/Vol] 0.0 10*3/uL Normal 0.0-0.4 [facility] Comment on above: Performed By: #### B ZAIN CBCA #### [facility] ([id number]) [address] [place] [address] Eosinophils/100 WBC (Bld) 0.0 % Normal [facility] Comment on above: Performed By: #### B ZAIN CBCA #### [facility] ([id number]) [address] [address] [place] [address] Erythrocyte distribution width (RBC) [Ratio] 14.1 % Normal 11.5-15.0 [facility] Comment on above: Performed By: #### B ZAIN CBCA #### [facility] ([id number]) [address] [place] [address] Hematocrit (Bld) [Volume fraction] 38.7 % Normal 35-47 [facility] Comment on above: Performed By: #### B MP, CBCA #### [facility] ([id number]) [address] [place] [address] Hemoglobin (Bld) [Mass/Vol] 13.0 g/dL Normal 11.7-15.5 [facility] Comment on above: Performed By: #### B MP, CBCA #### [facility] ([id number]) [address] [place] [address] Lymphocytes (Bld) [#/Vol] 0.8 10*3/uL Low 1.0-3.5 [facility] Comment on above: Performed By: #### B MP, CBCA #### [facility] ([id number]) [address] [place] [address] Lymphocytes/100 WBC (Bld) 5.9 % Normal [facility] Comment on above: Performed By: #### B MP, CBCA #### [facility] ([id number]) [address] [place] [address] MCH (RBC) [Entitic mass] 29.7 pg Normal 27-34 [facility] Comment on above: Performed By: #### B MP, CBCA #### [facility] ([id number]) [address] [place] [address] MCHC (RBC) [Mass/Vol] 33.6 g/dL Normal 32-36 [facility] Comment on above: Performed By: #### B MP, CBCA #### [facility] ([id number]) [address] [place] [address] MCV (RBC) [Entitic vol] 88 fL Normal 80-100 [facility] Comment on above: Performed By: #### B MP, CBCA #### [facility] ([id number]) [address] [place] [address] Monocytes (Bld) [#/Vol] 0.4 10*3/uL Normal 0-0.9 [facility] Comment on above: Performed By: #### B MP, CBCA #### [facility] ([id number]) [address] [place] [address] Monocytes/100 WBC (Bld) 3.3 % Normal [facility] Comment on above: Performed By: #### B MP, CBCA #### [facility] ([id number]) [address] [place] [address] Neutrophils/100 WBC (Bld) 90.7 % Normal [facility] Comment on above: Performed By: #### B MP, CBCA #### [facility] ([id number]) [address] [place] [address] Platelet mean volume (Bld) [Entitic vol] 6.4 fL Low 7-12 [facility] Comment on above: Performed By: #### B MP, CBCA #### [facility] ([id number]) [address] [facility] [address] [place] [address] Platelets (Bld) [#/Vol] 349 10*3/uL Normal 150-450 [facility] Comment on above: Performed By: #### B MP, CBCA #### [facility] ([id number]) [address] [place] [address] RBC COUNT 4.37 X10E12/L Normal 3.80-5.20 [facility] Comment on above: Performed By: #### B MP, CBCA #### [facility] ([id number]) [address] [place] [address] WBC (Bld) [#/Vol] 13.8 10*3/uL High 4.0-11.0 [facility] Comment on above: Performed By: #### B MP, CBCA #### [facility] ([id number]) [address] [facility] [place] [address] HCG ( test) Ql (U)o n 07-06-2023 Beta HCG ( test) Ql (U) Negative Normal NEG [facility] Comment on above: Performed By: #### 2 106-3 #### [facility] ([id number]) [address] [place] [address] Surgical Pathologyon 024 Surgical Pathology Normal [facility] Comment on above: Result Comment: [facility] [place], [place] [address] Surgical Pathology Consultation Patient Name:GISSEL DEL ROSARIO:1985 (Age: 38)Gender:FTaken:07/06/2023eported:07/10/2023hysician(s):Luís Andres M.D. ([phone])Copy To: Rec. #:[id number]: #[id number] Final Pathologic Diagnosis Bilateral fallopian tubes and [...] gp/07/10/2023Wagner Duncan MD Interpretation performed at [facility], [address] [place] [address], [place] [address], License number: [id number]. Clinical History Pelvic pain. Gross Description Received [...] each K 1 lymph node, serially sectioned (11,ss,[id number], m2) . /07/07/2023O Microscopic Findings Microscopic examination performed. Specimen(s) Received Bilateral tubes and ovaries and abdominal wall mass Fee Codes(s): 1; [address] CBC AND AUTO DIFFon 06-26-19 24 ABSOLUTE BASOPHIL 0.1 X10E9/L Normal 0.0-0.2 [facility] Comment on above: Performed By: #### C BCA #### [facility] ([id number]) [address] [place] [address] ABSOLUTE NEUTROPHIL 6.4 X10E9/L Normal 1.5-6.6 [facility] Comment on above: Performed By: #### C BCA #### [facility] ([id number]) [address] [place] [address] Basophils/100 WBC (Bld) 0.6 % Normal [facility] Comment on above: Performed By: #### C BCA #### [facility] ([id number]) [address] [place] [address] Eosinophils (Bld) [#/Vol] 0.1 10*3/uL Normal 0.0-0.4 [facility] Comment on above: Performed By: #### C BCA #### [facility] ([id number]) [address] [place] [address] Eosinophils/100 WBC (Bld) 0.7 % Normal [facility] Comment on above: Performed By: #### C BCA #### [facility] ([id number]) [address] [place] [address] Erythrocyte distribution width (RBC) [Ratio] 14.6 % Normal 11.5-15.0 [facility] Comment on above: Performed By: #### C BCA #### [facility] ([id number]) [address] [place] [address] Hematocrit (Bld) [Volume fraction] 42.5 % Normal 35-47 [facility] Comment on above: Performed By: #### C BCA #### [facility] ([id number]) [address] [place] [address] Hemoglobin (Bld) [Mass/Vol] 14.2 g/dL Normal 11.7-15.5 [facility] Comment on above: Performed By: #### C BCA #### [facility] ([id number]) [address] [place] [address] Lymphocytes (Bld) [#/Vol] 3.7 10*3/uL High 1.0-3.5 [facility] Comment on above: Performed By: #### C BCA #### [facility] ([id number]) [address] [place] [address] Lymphocytes/100 WBC (Bld) 33.4 % Normal [facility] Comment on above: Performed By: #### C BCA #### [facility] ([id number]) [address] [place] [address] MCH (RBC) [Entitic mass] 29.3 pg Normal 27-34 [facility] Comment on above: Performed By: #### C BCA #### [facility] ([id number]) [address] [place] [address] MCHC (RBC) [Mass/Vol] 33.4 g/dL Normal 32-36 [facility] Comment on above: Performed By: #### C BCA #### [facility] ([id number]) [address] [place] [address] MCV (RBC) [Entitic vol] 88 fL Normal 80-100 [facility] Comment on above: Performed By: #### C BCA #### [facility] ([id number]) [address] [place] [address] Monocytes (Bld) [#/Vol] 0.7 10*3/uL Normal 0-0.9 [facility] Comment on above: Performed By: #### C BCA #### [facility] ([id number]) [address] [place] [address] Monocytes/100 WBC (Bld) 6.5 % Normal [facility] Comment on above: Performed By: #### C BCA #### [facility] ([id number]) [address] [place] [address] Neutrophils/100 WBC (Bld) 58.8 % Normal [facility] Comment on above: Performed By: #### C BCA #### [facility] ([id number]) [address] [place] [address] Platelet mean volume (Bld) [Entitic vol] 6.6 fL Low 7-12 [facility] Comment on above: Performed By: #### C BCA #### [facility] ([id number]) [address] [place] [address] Platelets (Bld) [#/Vol] 367 10*3/uL Normal 150-450 [facility] Comment on above: Performed By: #### C BCA #### [facility] ([id number]) [address] [place] [address] RBC COUNT 4.84 X10E12/L Normal 3.80-5.20 [facility] Comment on above: Performed By: #### C BCA #### [facility] ([id number]) [address] [place] [address] WBC (Bld) [#/Vol] 11.0 10*3/uL Normal 4.0-11.0 [facility] Comment on above: Performed By: #### C BCA #### [facility] ([id number]) [address] [place] [address] MR PELVIS WO CONTon 06-16-19 MR PELVIS [...] abnormal bowel thickening or dilatation. BLADDER: Normal. PERITONEUM/RETROPERI TONEUM: No free fluid. LYMPH NODES: No abnormally [...] Rodrigez MD on 06/16/2023 11:29 AM Normal [facility] CT ABD/PELVIS WO CONon 08-05 CT ABD/PELVIS [...] the kidneys bilaterally. No ureteral calculus identified. Gastrointestinal/Per itoneum: No acute abnormality. The appendix is unremarkable. [...] JAYDEN MORGAN Date: 2022-08-05 16:55 Normal [facility] QUANTIFERON TB GOLD PLUSon 0 06-18-2022 QuantiFERON Criteria Comment Normal [facility] Comment [...] test. Performed By: #### Q NTTB #### [facility] [address] [place] [address] Dr. Yovanny Alcantara QuantiFERON Incubation Incubation performed. Normal [facility] Comment on above: Performed By: #### Q NTTB #### [facility] [address] [place] [address] Dr. Yovanny Alcantara QuantiFERON Mitogen Value >10.00 Normal [facility] Comment on above: Performed By: #### Q NTTB #### [facility] [address] [place] [address] Dr. Yovanny Alcantara QuantiFERON Nil Value 0.03 IU/mL Normal [facility] Comment on above: Performed By: #### Q NTTB #### [facility] [address] [place] [address] Dr. Yovanny Alcantara QuantiFERON TB1 Ag Value 0.05 IU/mL Normal [facility] Comment on above: Performed By: #### Q NTTB #### [facility] [address] [place] [address] Dr. Yovanny Alcantara QuantiFERON TB2 Ag Value 0.06 IU/mL Normal [facility] Comment on above: Performed By: #### Q NTTB #### [facility] [address] [place] [address] Dr. Yovanny Alcantara QuantiFERON-TB Gold Plus Negative Normal Negative [facility] Comment on above: Result Comment: No r esponse to M tuberculosis antigens detected. Infection with M tuberculosis is unlikely, but high risk individuals should be considered for additional testing (ATS/IDSA/CDC Clinical Practice Guidelines, 2017). The reference range is an Antigen minus Nil result of <0.35 IU/mL. Chemiluminescence immunoassay methodology Performed By: #### Q NTTB #### [facility] [address] [address] [address] Yovanny Alcantara HEPATITIS B SURFACE ANTIBODY , QUANTon 06-17-2022 Hepatitis B Surf AB Quant 3.5 mIU/mL Critically low Immunity>9.9 [facility] Comment on above: Result Comment: Stat us of Immunity Anti-HBs Level Inconsistent with Immunity 0.0 - 9.9 Consistent with Immunity >9.9 Performed By: #### H EPBSRF ####[facility] [id number] [address]Dr. Yovanny Alcantara MMR IMMUNITYon 06-17-2022 Mumps Abs, IgG 17.4 AU/mL Normal Immune >10.9 [facility] Comment on above: Result Comment: Nega tive <9.0 Equivocal 9.0 - 10.9 Positive >10.9 A positive result generally indicates past exposure to Mumps virus or previous vaccination. Performed By: #### M MRIMMU #### [facility] [address] [place] [address] Dr. Yovanny Alcantara Rubella Antibodies, IgG 1.68 index Normal Immune >0.99 [facility] Comment on above: Result Comment: Non- immune <0.90 Equivocal 0.90 - 0.99 Immune >0.99 Performed By: #### M MRIMMU #### [facility] [address] [address] [address] Yovanny Alcantara Rubeola Ab, IgG 108.0 AU/mL Normal Immune >16.4 [facility] Comment on above: Result Comment: Nega tive <13.5 Equivocal 13.5 - 16.4 Positive >16.4 Presence of antibodies to Rubeola is presumptive evidence of immunity except when acute infection is suspected. Performed By: #### M MRIMMU #### [facility] [address] [address] [address] Yovanny Alcantara VARICELLA IGG ABon 3 Varicella Zoster IgG 947 index Normal Immune >165 [facility] Comment on above: Result Comment: Nega tive <135 Equivocal 135 - 165 Positive >165 A positive result generally indicates exposure to the pathogen or administration of specific immunoglobulins, but it is not indication of active infection or stage of disease. Performed By: #### V GAMALIELEL ####[facility] [id number] [address]Dr. Yovanny Alcantara Consent Formson 05-01-2022 Consent Forms [id number] #[id number] [facility] US CESIA DOP LEG RTon 12-31-19 [...] FRANTZ COVARRUBIAS Date: 2021-12-30 10:39 Normal [facility] CBC AUTO DIFFon 12-29-2021 BASO # 0.1 103/ul Normal 0.0-0.1 [facility] Comment on above: Performed By: #### C BC #### [facility] [address] [address] [address] Yovanny Alcantara Basophils/100 WBC (Bld) 0.7 % Normal 0.2-2.0 [facility] Comment on above: Performed By: #### C BC #### [facility] [address] [address] [address] Yovanny Alcantara EO # 0.2 103/ul Normal 0.0-0.7 [facility] Comment on above: Performed By: #### C BC #### [facility] [address] [place] [address] Dr. Yovanny Alcantara Eosinophils/100 WBC (Bld) 1.3 % Normal 0.9-7.0 [facility] Comment on above: Performed By: #### C BC #### [facility] [address] [place] [address] Dr. Yovanny Alcantara Erythrocyte distribution width (RBC) [Ratio] 13.9 % Normal 11.0-15.0 [facility] Comment on above: Performed By: #### C BC #### [facility] [address] [place] [address] Dr. Yovanny Alcantara Hematocrit (Bld) [Volume fraction] 43.7 % Normal 36.0-48.0 [facility] Comment on above: Performed By: #### C BC #### [facility] [address] [place] [address] Dr. oYvanny Alcantara Hemoglobin (Bld) [Mass/Vol] 13.8 g/dL Normal 12.0-16.0 [facility] Comment on above: Performed By: #### C BC #### [facility] [address] [place] [address] Dr. Yovanny Alcantara IG # 0.11 10e3/ul Critically high 0.00-0.03 [facility] Comment on above: Performed By: #### C BC #### [facility] [address] [place] [address] Dr. Yovanny Alcantara IG % 0.8 % Critically high 0.0-0.5 [facility] Comment on above: Performed By: #### C BC #### [facility] [address] [place] [address] Dr. Yovanny Alcantara LYMPH # 3.7 103/ul Normal 1.2-3.8 [facility] Comment on above: Performed By: #### C BC #### [facility] [address] [place] [address] Dr. Yovanny Alcantara Lymphocytes/100 WBC (Bld) 27.0 % Normal 20.5-60.0 [facility] Comment on above: Performed By: #### C BC #### [facility] [address] [place] [address] Dr. Yovanny Alcantara MANUAL DIFF REQ NO Normal [facility] Comment on above: Performed By: #### C BC #### [facility] [address] [place] [address] Dr. Yovanny Alcantara MCH (RBC) [Entitic mass] 26.7 pg Normal 26.7-34.0 [facility] Comment on above: Performed By: #### C BC #### [facility] [address] [place] [address] Dr. Yovanny Aclantara MCHC (RBC) [Mass/Vol] 31.6 g/dL Normal 29.9-35.2 [facility] Comment on above: Performed By: #### C BC #### [facility] [address] [place] [address] Dr. Yovanny Alcantara MCV (RBC) [Entitic vol] 84.5 fL Normal 81.0-99.0 [facility] Comment on above: Performed By: #### C BC #### [facility] [address] [place] [address] Dr. Yovanny Alcantara MONO # 0.9 103/ul Critically high 0.3-0.8 [facility] Comment on above: Performed By: #### C BC #### [facility] [address] [place] [address] Dr. Yovanny Alcantara Monocytes/100 WBC (Bld) 6.5 % Normal 1.7-12.0 [facility] Comment on above: Performed By: #### C BC #### [facility] [address] [place] [address] Dr. Yovanny Alcantara NEUT # 8.8 103/ul Critically high 1.4-6.5 [facility] Comment on above: Performed By: #### C BC #### [facility] [address] [place] [address] Dr. Yovanny Alcantara Neutrophils/100 WBC (Bld) 63.7 % Normal 43.0-75.0 [facility] Comment on above: Performed By: #### C BC #### [facility] [address] [place] [address] Dr. Yovanny Alcantara Platelet mean volume (Bld) [Entitic vol] 8.3 fL Critically low 9.5-13.5 [facility] Comment on above: Performed By: #### C BC #### [facility] [address] [place] [address] Dr. Yovanny Alcantara PLT 364 103/ul Normal 150-450 [facility] Comment on above: Performed By: #### C BC #### [facility] [address] [place] [address] Dr. Yovanny Alcantara RBC 5.17 106/ul Normal 4.20-5.40 [facility] Comment on above: Performed By: #### C BC #### [facility] [address] [place] [address] Dr. Yovanny Alcantara WBC 13.8 103/ul Critically high 4.0-11.0 [facility] Comment on above: Performed By: #### C BC #### [facility] [address] [place] [address] Dr. Yovanny Alcantara CTA CHEST WO W CONon 08-28-2 022 CTA CHEST WO W CON EXAM: [...] AMINA WU Date: 2021-12-29 01:20 Normal [facility] D-DIMERon 12-29-2021 D-DIMER 0.68 mg/L FEU Critically high <=0.59 [facility] Comment on above: Performed By: #### P TT, PT, DDIM ####[facility] [id number] [address]Dr. Yovanny Alcantara D-DIMER COMMENTS SEE BELOW Normal [facility] Comment on above: Result Comment: Incr [...] Performed By: #### P TT, PT, DDIM ####[facility] [id number] [address]Dr. Yovanny Alcantara ER URINE PROFILEon 2 Bilirubin Ql (U) Negative Normal NEGATIVE [facility] Comment on above: Performed By: #### E RUR #### [facility] [address] [address] [address] Yovanny Alcantara Clarity (U) CLEAR Normal CLEAR [facility] Comment on above: Performed By: #### E RUR #### [facility] [address] [address] [address] Yovanny Alcantara Color (U) YELLOW Normal YELLOW [facility] Comment on above: Performed By: #### E RUR #### [facility] [address] [address] [address] Yovanny LONG A micrscopic examination will be performed if indicated. Normal [facility] Comment on above: Performed By: #### E RUR #### [facility] [address] [place] [address] Dr. Yovanny Alcantara Glucose Ql (U) Negative Normal NEGATIVE [facility] Comment on above: Performed By: #### E RUR #### [facility] [address] [place] [address] Dr. Yovanny Alcantara Hemoglobin Ql (U) Negative Normal NEGATIVE [facility] Comment on above: Performed By: #### E RUR #### [facility] [address] [place] [address] Dr. Yovanny Alcantara Ketones Ql (U) Negative Normal NEGATIVE [facility] Comment on above: Performed By: #### E RUR #### [facility] [address] [place] [address] Dr. Yovanny Alcantara LEUKOCYTES Negative Normal NEGATIVE [facility] Comment on above: Performed By: #### E RUR #### [facility] [address] [place] [address] Dr. Yovanny Alcantara Nitrite Ql (U) Negative Normal NEGATIVE [facility] Comment on above: Performed By: #### E RUR #### [facility] [address] [place] [address] Dr. Yovanny Alcantara pH (U) 6.5 [pH] Normal 5-9 [facility] Comment on above: Performed By: #### E RUR #### [facility] [address] [place] [address] Dr. Yovanny Alcantara SPEC GRAVITY 1.020 Normal 1.005-<=1.025 [facility] Comment on above: Performed By: #### E RUR #### [facility] [address] [place] [address] Dr. Yovanny Alcantara UA PROTEIN Negative Normal NEGATIVE/ TRACE [facility] Comment on above: Performed By: #### E RUR #### [facility] [address] [place] [address] Dr. Yovanny Alcantara UR MICRO IND NOT INDICATED Normal [facility] Comment on above: Performed By: #### E RUR #### [facility] [address] [address] [address] Yovanny Alcantara Urobilinogen Qn (U) 0.2 {Eunice'U}/dL Normal 0.2 - 1. 0 [facility] Comment on above: Performed By: #### E RUR #### [facility] [address] [address] [address] Yovanny Alcantara PROTIMEon 12-29-2021 INR Coag (PPP) [Relative time] 0.94 {INR} Normal [facility] Comment on above: Performed By: #### P TT, PT, DDIM ####[facility] [id number] [place] [address]Dr. Yovanny Alcantara INR GUIDELINES SEE BELOW Normal [facility] Comment on above: Result Comment: JENNIFER RED INR: 2.0 - 3.0 CONDITIONS NOT LISTED BELOW 2.5 - 3.5 FOR PROSTHETIC HEART VALVE REPLACEMENT 2.5 - 3.5 RECURRENT THROMBOSIS Performed By: #### P TT, PT, DDIM ####[facility] [id number] [place] [address]Dr. Yovanny Alcantara PT Coag (PPP) [Time] 10.2 s Normal 9.0-11.6 [facility] Comment on above: Performed By: #### P TT, PT, DDIM ####[facility] [id number] [place] [address]Dr. Yovanny Alcantara PTTon 12-29-2021 aPTT Coag (Bld) [Time] 28.2 s Normal 22.3-36.2 [facility] Comment on above: Performed By: #### P TT, PT, DDIM ####[facility] [id number] [place] [address]Dr. Yovanny Alcantara .QC Respiratory Panel 2.1 (B ioFire)on 11-19-2021 Internal Control-Resp Panel 2.1(BioFire) Pass Normal [facility] Comment on above: Order Comment: Order ed by Discern. [[id number]] Performed By: #### [id number] #### [facility] (DEFAULT) [address] [place] [address] Consent Formson 11-08-2021 Consent Forms [id number] #1.00OTGTIFF [facility] .QC Respiratory Panel 2.1 (B ioFire)on 11-02-2021 Internal Control-Resp Panel 2.1(BioFire) Pass [facility] Comment on above: Order Comment: Order ed by Discern. [[id number]] Performed By: #### [id number] #### [facility] (DEFAULT) [address] [place] [address] XR LSPINE 2_3 VIEWSon 2021 XR LSPINE [...] by: ASHLEY CARRANZA Date: 2021-09-28 07:54 Normal [facility] US PELVIS AND TRANSVAGon US [...] authenticated by: BRIAN SINGER Date: 2021-08-20 09:02 [facility] Consent Formson 05-16-2021 Consent Forms [id number] #1.00OTGTIFF [facility] .QC Respiratory Panel 2.1 (B ioFire)on 05-13-2021 Internal Control-Resp Panel 2.1(BioFire) Pass [facility] Comment on above: Order Comment: Order ed by Discern. [[id number]] Performed By: #### 6 [id number] #### [facility] (DEFAULT) [address] [place] [address] Vital Signs Date Time Vital Sign Value Performing Clinician Facility 05-31-2024 13:20-0500 Body height 157.5 cm Joseph Sotelo MD Work Phone: [facility] 05-31-2024 13:20-0500 Body mass index (BMI) [Ratio] 28.35 kg/m2 Joseph Sotelo MD Work Phone: [facility] 05-31-2024 13:20-0500 Body temperature 97.5 [degF] Joseph Sotelo MD Work Phone: [facility] 05-31-2024 13:20-0500 Body weight 70.31 kg Joseph Sotelo MD Work Phone: [facility] 05-31-2024 13:20-0500 Diastolic blood pressure 62 mm[Hg] Joseph Sotelo MD Work Phone: [facility] 05-31-2024 13:20-0500 Heart rate 106 /min Joseph Sotelo MD Work Phone: [facility] 05-31-2024 13:20-0500 Respiratory rate 22 /min Joseph Sotelo MD Work Phone: [facility] 05-31-2024 13:20-0500 SaO2% (BldA) [Mass fraction] 97 % Joseph Sotelo MD Work Phone: [facility] 05-31-2024 13:20-0500 Systolic blood pressure 114 mm[Hg] Joseph Sotelo MD Work Phone: [facility] 12-23-2023 14:16-0400 Blood Pressure Location Bryant IGLESIAS [facility] 12-23-2023 14:16-0400 Diastolic blood pressure 104 mm[Hg] Bryantdustin IGLESIAS [facility] 12-23-2023 14:16-0400 Heart rate 84 /min Bryantdustin IGLESIAS [facility] 12-23-2023 14:16-0400 Respiratory rate 16 /min Bryant IGLESIAS [facility] 12-23-2023 14:16-0400 Systolic blood pressure 144 mm[Hg] Bryant IGLESIAS [facility] 08-05-2023 10:57-0400 Body height 157.5 cm Dayanara Carroll PA Work Phone: [facility] 08-05-2023 10:57-0400 Body mass index (BMI) [Ratio] 28.34 kg/m2 Dayanara Carroll PA Work Phone: [facility] 08-05-2023 10:57-0400 Body temperature 97.9 [degF] Dayanara Carroll PA Work Phone: [facility] [employer] [facility] 08-05-2023 10:57-0400 Body weight 70.31 kg Dayanara Carroll PA Work Phone: [facility] 08-05-2023 10:57-0400 Diastolic blood pressure 118 mm[Hg] Dayanara Carroll PA Work Phone: [facility] 08-05-2023 10:57-0400 Heart rate 115 /min [facility]ara Carroll [facility] 08-05-2023 10:57-0400 Respiratory rate 18 /min [facility]ara Carroll [facility] 08-05-2023 10:57-0400 SaO2% (BldA) [Mass fraction] 100 % Dayanara Carroll PA [facility] 08-05-2023 10:57-0400 Systolic blood pressure 149 mm[Hg] Dayanara Carroll PA [facility] 07-30-2023 14:43-0400 Body height 157.5 cm Basel Sharda PA Work [facility]: [facility] 07-30-2023 14:43-0400 Body mass index (BMI) [Ratio] 29.26 kg/m2 Basel Sharda PA [facility] 07-30-2023 14:43-0400 Body weight 72.58 kg Basel Sharda PA [facility] 07-22-2023 08:52-0400 Body height 157.5 cm Dayanara Carroll PA [facility] 07-22-2023 08:52-0400 Body mass index (BMI) [Ratio] 29.26 kg/m2 Dayanara Carroll PA [facility] 07-22-2023 08:52-0400 Body weight 72.58 kg Dayanara Carroll PA [facility] 07-22-2023 08:52-0400 Diastolic blood pressure 95 mm[Hg] Dayanara Carroll PA [facility] 07-22-2023 08:52-0400 Heart rate 90 /min Dayanara Carroll PA [facility] 07-22-2023 08:52-0400 Respiratory rate 20 /min Dayanara CORTES Work Phone: [facility] 07-22-2023 08:52-0400 SaO2% (BldA) [Mass fraction] 100 % Dayanara CORTES Work Phone: [facility] 07-22-2023 08:52-0400 Systolic blood pressure 122 mm[Hg] Dayanara CORTES Work Phone: [facility] 06-17-2023 08:25-0500 Body height 157.5 cm Luís Andres MD Work Phone: [facility] 06-17-2023 08:25-0500 Body mass index (BMI) [Ratio] 29.29 kg/m2 Luís Andres MD Work Phone: [facility] 06-17-2023 08:25-0500 Body temperature 98.6 [degF] Luís Andres MD Work Phone: [facility] 06-17-2023 08:25-0500 Body weight 72.67 kg Luís Andres MD Work Phone: [facility] 06-17-2023 08:25-0500 Diastolic blood pressure 84 mm[Hg] Luís Andres MD Work Phone: [facility] 06-17-2023 08:25-0500 Heart rate 95 /min Luís Andres MD Work Phone: [facility] 06-17-2023 08:25-0500 SaO2% (BldA) [Mass fraction] 90 % Luís Andres MD Work Phone: [facility] 06-17-2023 08:25-0500 Systolic blood pressure 128 mm[Hg] Luís Andres MD Work Phone: [facility] 06-11-2023 15:12-0500 Body height 157.5 cm Joseph Sotelo MD Work Phone: [facility] 06-11-2023 15:12-0500 Body mass index (BMI) [Ratio] 28.53 kg/m2 Joseph Sotelo MD Work Phone: [facility] 06-11-2023 15:12-0500 Body temperature 97.81 [degF] Joseph Sotelo MD Work Phone: [facility] 06-11-2023 15:12-0500 Body weight 70.76 kg Joseph Sotelo MD Work Phone: [facility] 06-11-2023 15:12-0500 Diastolic blood pressure 60 mm[Hg] Joseph Sotelo MD Work Phone: [facility] 06-11-2023 15:12-0500 Heart rate 101 /min Joseph Sotelo MD Work Phone: [facility] 06-11-2023 15:12-0500 SaO2% (BldA) [Mass fraction] 99 % Joseph Sotelo MD Work Phone: [facility] 06-11-2023 15:12-0500 Systolic blood pressure 100 mm[Hg] Joseph Sotelo MD Work Phone: [facility] 06-03-2023 08:26-0500 Diastolic blood pressure 64 mm[Hg] Luís Andres MD Work Phone: [facility] 06-03-2023 08:26-0500 Systolic blood pressure 106 mm[Hg] Luís Andres MD Work Phone: [facility] 06-03-2023 08:12-0500 Body height 157.5 cm Luís Andres MD Work Phone: [facility] 06-03-2023 08:12-0500 Body mass index (BMI) [Ratio] 29.26 kg/m2 Luís Andres MD Work Phone: [facility] 06-03-2023 08:12-0500 Body weight 72.58 kg Luís Andres MD Work Phone: [facility] 03-24-2023 10:40-0500 Body height 154.1 cm Vu Juarez MD MPH Work Phone: [facility] 03-24-2023 10:40-0500 Body mass index (BMI) [Ratio] 31.92 kg/m2 Vu Juarez MD MPH Work Phone: [facility] 03-24-2023 10:40-0500 Body temperature 97.3 [degF] Vu Juarez MD MPH Work Phone: [facility] 03-24-2023 10:40-0500 Body weight 75.8 kg Vu Juarez MD MPH Work Phone: [facility] 03-24-2023 10:40-0500 Diastolic blood pressure 107 mm[Hg] Vu Juarez MD MPH Work Phone: [facility] 03-24-2023 10:40-0500 Heart rate 85 /min Vu Juarez MD MPH Work Phone: [facility] 03-24-2023 10:40-0500 Respiratory rate 16 /min Vu Juarez MD MPH Work Phone: [facility] 03-24-2023 10:40-0500 SaO2% (BldA) [Mass fraction] 98 % Vu Juarez MD MPH Work Phone: [facility] 03-24-2023 10:40-0500 Systolic blood pressure 148 mm[Hg] Vu Juarez MD MPH Work Phone: [facility] 09-05-2022 10:45-0400 Body height 155.57 cm Hilary Staton Other [facility] Other 09-05-2022 10:45-0400 Body mass index (BMI) [Ratio] 33.73 kg/m2 Hilary Staton Other [facility] Other 09-05-2022 10:45-0400 Body temperature 97.3 [degF] Hilary Shemar Other [facility] Other 09-05-2022 10:45-0400 Body weight 81.65 kg Hilary Staton Other [facility] Other 09-05-2022 10:45-0400 Diastolic blood pressure 98 mm[Hg] Hilary Staton Other [facility] Other 09-05-2022 10:45-0400 Respiratory rate 18 /min Hilary Shemar Other [facility] Other 09-05-2022 10:45-0400 SaO2% (BldA) [Mass fraction] 99 % Hilary Staton Other [facility] Other 09-05-2022 10:45-0400 Systolic blood pressure 139 mm[Hg] Hilary Shemar Other [facility] Other 07-04-2014 13:22-0500 Blood Pressure Location [facility] 07-04-2014 13:22-0500 Body temperature 97.7 [degF] Bryant IGLESIAS [facility] 07-04-2014 13:22-0500 Diastolic blood pressure 79 mm[Hg] Bryant IGLESIAS [facility] 07-04-2014 13:22-0500 Heart rate 96 /min Bryant IGLESIAS [facility] 07-04-2014 13:22-0500 Mean blood pressure 90 mm[Hg] Bryant IGLESIAS [facility] 07-04-2014 13:22-0500 Respiratory rate 16 /min Bryant [facility] 07-04-2014 13:22-0500 SaO2% (BldA) [Mass fraction] 97 % Bryant IGLESIAS [facility] 07-04-2014 13:22-0500 Systolic blood pressure 111 mm[Hg] Bryant IGLESIAS [facility] Encounters Encounter Date Encounter Type Care Provider Facility Start: 05-31-2024 End: 05-31-2024 Golden flowsheet Joseph Sotelo MD Work Phone: [facility] Start: 05-31-2024 End: 05-31-2024 [employer]amb[employer] Joseph Sotelo MD Work Phone: [facility] Start: 05-31-2024 End: 05-31-2024 Office outpatient visit 15 minutes Joseph Sotelo MD Work Phone: [facility] Comment on above: Left lateral epicond ylitis (Primary Dx) Start: 05-31-2024 End: 05-31-2024 ambulatory JOSEPH SOTELO Not Available Start: 03-05-2024 End: 03-05-2024 Clinisync Result Encounter Generic External Data Provider [facility] External Department Unsolicited Start: 03-05-2024 End: 03-05-2024 Clinisync Result Encounter Generic External Data Provider [facility] External Department Unsolicited Start: 01-06-2024 End: 01-07-2024 ambulatory [facility] Start: 12-24-2023 End: 12-24-2023 Clinisync Result Encounter Generic External Data Provider [facility] External Department Unsolicited Start: 12-24-2023 End: 12-24-2023 Clinisync Result Encounter Generic External Data Provider [facility] External Department Unsolicited Start: 12-23-2023 End: 12-24-2023 ambulatory Bryant IGLESIAS Facility:[id number] Start: 12-23-2023 End: 12-23-2023 Patient encounter procedure Bryant IGLESIAS [facility] Start: 12-22-2023 ambulatory Bryant IGLESIAS Facility :[facility] Start: 12-21-2023 End: 12-24-2023 Clinisync Result Encounter Generic External Data Provider [facility] External Department Unsolicited Start: 12-21-2023 End: 12-24-2023 Clinisync Result Encounter Generic External Data Provider [facility] External Department Unsolicited Start: 09-25-2023 End: 09-26-2023 ambulatory [facility] Start: 08-05-2023 End: 08-05-2023 ambulatory [facility] Start: 08-05-2023 End: 08-05-2023 Postop follow up visit related to original px Dayanara CORTES Work Phone: Diana Recio [facility] Comment on above: Encounter for postop erative care (Primary Dx); Menopausal symptoms Start: 08-03-2023 Telephone encounter Dayanara CORTES Work Phone: [facility] Start: 07-30-2023 End: 07-30-2023 Postop follow up visit related to original px Basel Sharda PA Work Phone: [facility] Comment on above: Abdominal wall mass (Primary Dx) Start: 07-30-2023 End: 07-30-2023 ambulatory [facility] Start: 07-27-2023 Orders Only Dayanara CORTES Work Phone: [facility] Comment on above: Muscle spasms of bot h lower extremities (Primary Dx) Start: 07-22-2023 End: 07-22-2023 ambulatory [facility] Start: 07-22-2023 End: 07-22-2023 Postop follow up visit related to original px Dayanara Carroll PA Work Phone: Diana Recio [facility] Comment on above: Encounter for postop erative care (Primary Dx); Menopausal symptoms; Acute serous otitis media, recurrence not specified, unspecified laterality Start: 07-13-2023 Telephone encounter Sheyla Mendoza RN [facility] Start: 07-07-2023 End: 07-07-2023 Evaluation and management of inpatient ELSI RICK [facility] Start: 07-06-2023 End: 07-07-2023 Evaluation and management of inpatient [facility] Charity [facility] Start: 06-29-2023 End: 06-29-[address] [facility] Phone Call Provider 2 [facility] Start: 06-29-2023 End: 06-29-2023 ambulatory JOSEPH SOTELO [facility] Start: 06-26-2023 End: 06-27-2023 ambulatory LUÍS [facility] Start: 06-26-2023 Encounter for other preprocedural examination DAYANARA CARROLL [facility] Start: 06-25-2023 Orders Only Luís Andres MD Work Phone: [facility] Comment on above: Preop testing (Prima ry Dx) Start: 06-25-2023 Patient encounter status Luís Andres MD Work Phone: [facility] Start: 06-17-2023 End: 06-17-2023 ambulatory LUÍS Nash MCKENNA [facility] Start: 06-17-2023 End: 06-17-2023 Office outpatient visit 40 minutes Luís Andres MD Work Phone: [facility] Comment on above: Pelvic mass (Primary Dx) Start: 2023 End: 06-16-2023 ambulatory [facility] Char[facility] Start: 06-11-2023 End: 06-11-2023 Office outpatient visit 25 minutes Joseph Sotelo MD Work Phone: 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 Start: 06-11-2023 End: 06-11-2023 ambulatory JOSEPH SOTELO Not Available Start: 06-11-2023 Bamboo flowsheet Joseph Sotelo MD Work Phone: [facility] Start: 06-11-2023 Bamboo flowsheet Joseph Sotelo MD Work Phone: [facility] Start: 06-03-2023 End: 06-03-2023 ambulatory LUÍS ANDRES [facility] Start: 06-03-2023 End: 06-03-2023 Office outpatient new 60 minutes Luís Andres MD Work Phone: [facility] Comment on above: Pelvic mass (Primary Dx); Endometriosis; 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; Pelvic pain Start: 05-22-2023 [facility] Start: 05-20-2023 Telephone encounter Sheyla Mendoza RN [facility] Start: 04-08-2023 End: 04-08-2023 Office outpatient new 45 minutes Jeremy Jang MD Work Phone: [facility] Comment on above: Endometrioma Start: 03-24-2023 End: 03-24-2023 [facility] Start: 03-24-2023 End: 03-24-2023 Office outpatient new 60 minutes Vu Juarez MD MPH Work Phone: [facility] Comment on above: Endometrioma (Primar y Dx) Start: 09-05-2022 End: 09-05-2022 ambulatory Hilary Staton Other [facility] Other Start: 09-05-2022 Office outpatient ne w 20 minutes Hilary Staton [facility] Start: 08-05-2022 End: 08-06-2022 ambulatory SHAIKH Neema KRISHNA Facility:[facility] Start: 06-16-2022 End: 06-16-2022 ambulatory AYDIN CAMACHO Facility:[facility] Start: 04-23-2022 End: 04-24-2022 ambulatory [facility] Facility:[facility] Start: 12-30-2021 End: 12-31-[address] JOSEPH SOTELO Facility:[facility] Start: 12-28-2021 End: 12-29-[address] JOSEPH SOTELO Facility:[facility] Start: 11-19-2021 End: 11-20-2021 ambulatory JOSEPH SOTELO Facility:[facility] Start: 11-02-2021 End: 11-02-2021 ambulatory JOSEPH SOTELO Facility:[facility] Start: 09-27-2021 End: 09-28-[address] JOSEPH SOTELO Facility:[facility] Start: 08-20-2021 End: 08-21-[address] JOSEPH SOTELO Facility:[facility] Start: 05-14-2021 End: 05-14-2021 ambulatory JOSEPH SOTELO Facility:[facility] Procedures Date Procedure Procedure Detail Performing Clinician Start: 03-05-2024 ALL BUN Generic External Data Provider Start: 03-05-2024 ALL CARBON DIOXIDE Generic External Data Provider Start: 03-05-2024 ALL CHLORIDE Generic External Data Provider Start: 03-05-2024 ALL PHOSPHOROUS Generic External Data Provider Start: 03-05-2024 ALL SODIUM Generic External Data Provider Start: 03-05-2024 ALL URIC ACID Generic External Data Provider Start: 03-05-2024 [facility] CALCIUM Generic External Data Provider Start: 03-05-2024 [facility] CREATININE Generic External Data Provider Start: 12-24-2023 [facility] APTT Generic External Data Provider Start: 12-24-2023 SRM[facility]H PROTHROMBIN TIME INR W/O COUM Generic External Data Provider Start: 12-21-2023 Bacteria identified in Urine by Culture Generic External Data Provider Start: 07-22-2023 Follow-up visit Follow-up DAYANARA CARROLL [...] 2) Zoste r Vaccines (1 of 2) [facility] Start: 07-28-2027 DTaP,Tdap and Td Vaccines (6 - Td or Tdap) DTaP,Tdap and Td Vaccines (6 - Td or Tdap) [facility] Start: 07-28-2027 DTaP/Tdap/Td Vaccine s (6 - Td or Tdap) DTaP/Tdap/Td Vaccines (6 - Td or Tdap) [facility] Start: 09-06-2024 End: 09-06-2024 Patient encounter procedure 09/06/2024 3:30 PM EDT [facility] [address] [place] [address] Joseph Sotelo MD [address] [place] [address] [facility] Start: 08-04-2024 Adult BMI Screening Adult BMI Screen ing [facility] Start: 07-29-2024 Adult BMI Screening Adult BMI Screen ing [facility] Start: 07-29-2024 Tobacco Screening Tobacco Screening [facility] Start: 07-21-2024 Adult BMI Screening Adult BMI Screen ing [facility] Start: 07-21-2024 Tobacco Screening Tobacco Screening [facility] Start: 07-06-2024 Adult BMI Screening Adult BMI Screen ing [facility] Start: 07-05-2024 Depression Screening Depression Scre ening [facility] Start: 07-05-2024 Tobacco Screening Tobacco Screening [facility] Start: 06-29-2024 Tobacco Screening Tobacco Screening [facility] Start: 06-17-2024 Adult BMI Screening Adult BMI Screen ing [facility] Start: 06-17-2024 Tobacco Screening Tobacco Screening [facility] Start: 06-03-2024 Adult BMI Screening Adult BMI Screen ing [facility] Start: 06-03-2024 Tobacco Screening Tobacco Screening [facility] Start: 05-31-2024 End: 05-31-2024 Patient encounter procedure 05/31/2024 1:15 PM EST Office Visit [facility] [address] [place] [id number] Joseph Sotelo MD [address] [place] [phone] Arrived [facility] Comment on above: Arrived Start: 01-03-2024 Influenza vaccination [facility] Start: 08-10-2023 End: 08-10-2023 Patient encounter procedure 08/10/2023 2:45 PM EDT Office Visit [facility] [address] [place] [address] Joseph Sotelo MD [address] [place] [phone] [facility] Start: 08-05-2023 End: 08-05-2023 Patient encounter procedure Diana Recio [facility] Start: 07-30-2023 End: 07-30-2023 Patient encounter procedure 07/30/2023 3:00 PM EDT Office Visit [facility] General Surgery [address] [place] [address] [facility] General Surgery Start: 07-22-2023 End: 07-22-2023 Patient encounter procedure 07/22/2023 9:00 AM EDT Office Visit [facility] [address] [place] [address] Dayanara Carroll PA [address] [place] [address] [facility] Rec[facility] Start: 07-06-2023 End: 07-06-2023 Admission to same day surgery center [facility] Comment on above: DAVINCI SALPINGO OOP HORECTOMY/ ABDOMINAL WALL RESECTION ENDOMETRIOSIS DAVINCI SALPINGO OOP HORECTOMY Start: 07-06-2023 End: 07-06-2023 DAVINCI SALPINGO OOPHORECTOMY DAVINCI SALPINGO OOPHORECTOMY PELVIC PAIN 07/06/2023 10:00 AM EST [facility] Start: 07-06-2023 End: 07-06-2023 Laps fulg/exc ovary viscera/peritoneal surface DAVINCI FULGURATION ENDOMETRIAL IMPLANTS PELVIC PAIN 07/06/2023 10:00 AM EST [facility] Start: 07-06-2023 Subsequent hospital visit by physician 07/06/2023 10:00 AM EST Hospital Encounter [facility] [address] [place] [phone] Luís Andres MD [address] [place] [address], [address] [place] [address] [facility] Start: 07-06-2023 End: 07-06-2023 Unlisted laparoscopic px abd pertoneum & omentum DAVINCI RESECTION MASS PERITONEAL PELVIC PAIN 07/06/2023 10:00 AM EST [facility] Start: 06-29-2023 End: 06-29-2023 Admission to establishment 06/29/2023 12:45 PM EST [facility] [address] [address] [facility] Start: 06-17-2023 End: 06-17-2023 Patient encounter procedure 06/17/2023 8:30 AM EST Office Visit [facility] [address] [place] [address] [address] [place] [address] Luís Andres MD [address] [place] [address], [address] [place] [address] [facility] Start: 06-11-2023 End: 06-11-2023 Patient encounter procedure 06/11/2023 3:15 PM EST Office Visit [facility] [address] [place] [address] Joseph Sotelo MD [address] [place] [id number] Arrived [facility] Comment on above: Arrived Start: 06-03-2023 End: 06-03-2024 MR Pelvis WO contrast MR pelvis without contrast Imaging Routine Pelvic mass Endometriosis Expected: 06/03/2023, Expires: 06/03/2024 [facility] Work Phone: Comment on above: Expected: 06/03/2023 , Expires: 06/03/2024 Start: 06-03-2023 End: 06-03-2023 Patient encounter procedure 06/03/2023 8:00 AM EST Office Visit [facility] [address] [place] [address] [address] [place] [address] Luís Andres MD [address] [place] [address], [address] [place] [address] [facility] Start: 01-02-2023 COVID-19 Vaccine ( season) COVID-19 Vaccine ( season) [facility] Start: 01-02-2023 Influenza vaccination [facility] Start: 04-26-2021 COVID-19 Vaccine (4 - Moderna series) COVID-19 Vaccine (4 - Moderna series) [facility] Start: 12-24-2017 Varicella vaccination Varicell a Vaccines (2 of 2 - 13+ 2-dose series) [facility] Start: 2007 Screening for malign ant neoplasm of cervix [facility] Start: 2004 Adult BMI Follow Up Plan Adult BMI Follow Up Plan [facility] Start: 2004 Adult BMI Screening Adult BMI Screen ing [facility] Start: 2004 Diabetes mellitus screening Diabetes Screening [facility] Start: 2004 [facility]atitis [facility] Start: 1998 Depression Screening Depression Scre ening [facility] Start: 1998 Tobacco Screening Tobacco Screening [facility] Start: 1986 HIV screening HIV Screening [facility] Start: 1986 Lipid panel Lipid Panel [facility] Start: 1986 Yearly Adult Physical Yearly Adult P hysical [facility] End: 06-25-2024 CBC W Auto Differential panel - Blood CBC with auto diff Lab Routine Preop testing 1 Occurrences starting 06/25/2023 until 06/25/2024 [facility] Work Phone: Comment on above: 1 Occurrences starti ng 06/25/2023 until 06/25/2024 Immunizations Immunization Date Immunization Notes Care Provider Fa cili 02-18-2021 influenza, injectabl e, quadrivalent, preservative free Sheyla Mendoza RN [facility] 02-18-2021 influenza virus vaccine, unspecified formulation Vu Juarez MD MPH Work Phone: [facility] Work Phone: 01-31-2020 influenza, injectabl e, quadrivalent, preservative free Sheyla Mendoza RN [facility] 01-31-2020 influenza virus vaccine, unspecified formulation Sheyla Mendoza RN [facility] 01-29-2020 influenza, injectabl e, quadrivalent, preservative free Sheyla Mendoza RN [facility] 01-13-2019 influenza, injectabl e, quadrivalent, preservative free Sheyla Mendoza RN [facility] 01-01-2018 influenza, injectabl e, quadrivalent, preservative free Sheyla Mendoza RN [facility] 11-26-2017 hepatitis B vaccine, adult dosage Sheyla Mendoza RN [facility] 11-26-2017 varicella virus vaccine Vu Juarez MD MPH Work Phone: [facility] Work Phone: 07-27-2017 hepatitis B vaccine, adult dosage Sheyla Mendoza RN [facility] 07-27-2017 tetanus toxoid, reduced diphtheria toxoid, and acellular pertussis vaccine, adsorbed Sheyla Mendoza RN [facility] 01-11-2014 influenza, seasonal, injectable, preservative free Hilary Staton Other [facility] Other 12-28-1998 hepatitis B vaccine, pediatric or pediatric/adolescent dosage Sheyla Mendoza RN [facility] 12-28-1998 measles, mumps and rubella virus vaccine Sheyla Mendoza RN [facility] 12-28-1998 TD(adult) unspecifie d formulation Sheyla Mendoza RN [facility] 07-01-1991 diphtheria, tetanus toxoids and pertussis vaccine Sheyla Mendoza RN [facility] 07-01-1991 trivalent poliovirus vaccine, live, oral Sheyla Mendoza RN [facility] 01-30-1989 diphtheria, tetanus toxoids and pertussis vaccine Sheyla Mendoza RN [facility] 01-30-1989 measles, mumps and rubella virus vaccine Sheyla Mendoza RN [facility] 1986 diphtheria, tetanus toxoids and pertussis vaccine Sheyla Mendoza RN [facility] 1986 trivalent poliovirus vaccine, live, oral Sheyla Mendoza RN [facility] 1986 diphtheria, tetanus toxoids and pertussis vaccine Sheyla Mendoza RN [facility] 1986 trivalent poliovirus vaccine, live, oral Sheyla Mendoza RN [facility] Payers Date Payer Category Payer [facility] Blue [facility] 1.2.8 [id number] 2017 Unknown [id number] 2017 [facility] Blue [facility] GTFAN [id number] 2014 Unknown [id number] 1986 Unknown [id number] 2.16.84 0.1.090056.3.579.2.593 1986 Unknown [id number] 2.16.84 0.1.343612.3.579.2.593 1986 Unknown [id number] 2.16.84 0.1.990770.3.579.2.593 1986 Unknown [id number] 2.16.84 0.1.230056.3.579.2.593 1986 Unknown [id number] 2.16.84 0.1.589518.3.579.2.593 1986 Unknown [id number] 2.16.8 40.1.972709.3.579.2.1245 1986 Unknown [id number] 2.16.84 0.1.565849.3.579.2.1286 1986 Unknown [id number] 2.16.84 0.1.874169.3.579.2.1286 1986 Unknown [id number] 2.16.8 40.1.502186.3.579.2.1285 1986 Unknown [id number] 2.16.8 40.1.349834.3.579.2.128 1986 Unknown [id number] 2.16.8 40.1.118409.3.579.2.1285 1986 Unknown [id number] 2.16.8 40.1.526321.3.579.2.1285 1986 Unknown [id number] 2.16.8 40.1.803823.3.579.2.1285 1986 Unknown [id number] 2.16.8 40.1.120270.3.579.2.128 1986 Unknown [id number] 2.16.8 40.1.869074.3.579.2.1285 1986 Unknown [id number] 2.16.8 40.1.671612.3.579.2.1285 1986 Unknown [id number] 2.16.8 40.1.100158.3.579.2.128 1986 Unknown [id number] 2.16.8 40.1.966839.3.579.2.1286 1986 Unknown [id number] 2.16.8 40.1.031684.3.579.2.1286 1986 Unknown [id number] 2.16.8 40.1.108641.3.579.2.1286 1986 Unknown [id number] 2.16.8 40.1.155367.3.579.2.1286 1986 Unknown [id number] 2.16.8 40.1.963629.3.579.2.1286 1986 Unknown [id number] 2.16.8 40.1.749990.3.579.2.727 1986 Unknown [id number] 2.16.8 40.1.689094.3.579.2.727 1986 Unknown [id number] 2.16.8 40.1.637109.3.579.2.727 1986 Unknown [id number] 2.16.8 40.1.344104.3.579.2.727 1986 Unknown [id number] 2.16.84 0.1.786059.3.579.2.1259 1986 Unknown [id number] 2.16.84 0.1.132806.3.579.2.1259 1959 Self-pay 1959 Unknown [id number] Unknown [id number] 2.16.84 0.1.109667.3.579.2.593 Social History Date Type Detail Facility Unknown if ever smoked [facility] Other Start: 04-08-2023 End: 05-06-2023 [facility] Assigned At [facility] Tobacco smoking stat [facility] Tobacco smoking consumption unknown [facility] Work Phone: Start: 1986 Sex Assigned At Not on file [facility] Work Phone: Start: 03-14-2023 End: 04-08-2023 Exposure to SARS-CoV-2 (event) Not sure [facility] Start: 10-14-2022 End: 04-08-2023 Tobacco smoking status NHIS Never smoked tobacco [facility] Start: 10-14-2022 End: 04-08-2023 Tobacco use and exposure Smokeless tobacco non-user [facility] Work Phone: Start: 04-08-2023 Alcohol intake Ex-drinker (finding) [facility] Work Phone: Start: 04-08-2023 End: 05-06-2023 History of Social function [facility] Start: 11-26-2018 End: 07-30-2023 Alcohol intake Current drinker of alcohol (finding) [facility] Housing Instability Unknown [facility] Start: 11-02-2017 Alcohol Comment socially [facility] Start: 05-19-2023 End: 05-31-2024 Alcohol intake Lifetime non-drinker (finding) [facility] [...] Only a little [facility] (I/We) worried kain er (my/our) food would run out before (I/we) got money to buy more. Never true [facility] Start: 10-14-2022 Alcohol Comment Alcohol: 1-2 drinks/monthly or less Caffeine: 1-2 cups/day coffee, tea [facility] History of tobacco use Passive smoker [facility] Start: 06-29-2023 Alcohol Comment 0-1 per month [facility] Medical Equipment Procedure Code Equipment Code Equipment Origin al Text Equipment Identifier Dates Mesh [id number] Flt Vcl Abs Wvn Srg Hrn Repr - [id number] Start: 07-06-2023 Goals Date Patient Goal Desired Activity /State Personal health goal Comment on above: Formatting of this n ote might be different from the original. Evaluation of progress towards goal: Patient plans to discharge home with self care and with assistance from family. Functional Status Date Assessment Result Facility 12-23-2023 Functional Status N/A [facility] Clinical Notes 09-28-2021 to 05-31-2024 Joseph Sotelo MD - 05/31/2024 1:58 PM Harrison Sotelo MD - 05/31/2024 1:15 PM SEBASTIAN Horan - 08/05/2023 11:00 AM EDTTelephone Encounter - SEBASTIAN Wang - 08/03/2023 10:14 AM EDT Note Date & Type Note Facility 05-31-2024 History of Presen t illness Narrative Associated Problem(s): Left lateral epicondylitis Patient with tennis elbow and treat with prednisone. Ice PRN. Try brace for forearm while doing activity. Handout with ROM exercises to patient. If no improvement will need PT and possible ortho. Images from the original note were not included. Subjective Patient ID: Gissel Del Rosario is a 38 y.o. female who presents for Follow-up (Elbow pain) and Sinusitis. C/o left elbow pain for several weeks. Patient exercising several days a week and using weights. Pain in outer elbow and when severe into upper arm and forearm. Pain with lifting and activity. Elbow feels swollen and very tender to touch. Tried motrin and helped then exercised and pain worse after. Tried baclofen and no change. Right handed. Pain starting to limit activity. Review of Systems Respiratory: Negative for cough, [...] Assessment/Plan Problem List Items Addressed This Visit Left lateral epicondylitis - Primary Patient with tennis elbow and treat with prednisone. Ice PRN. Try brace for forearm while doing activity. Handout with ROM exercises to patient. If no improvement will need PT and possible ortho. Relevant Medications predniSONE (Deltasone) 50 MG tablet documented in this encounter [facility] 12-23-2023 Hospital Discharg e instructions Patient Education [...] Follow these instructions at home: Medicines Take yfhs-gbp-rjxadvi and prescription medicines only as told by [...] prevent or treat constipation, such as: ?Take dtat-hgy-beieivs or prescription medicines. ?Eat foods that are [...] provider. Document Revised: 08/27/2022 Document Reviewed: 12/23/2021 [employer] Patient Education 2022 [employer]ist. 12/23/2023 14:47:10 Laser Therapy for Kidney Stones [...] including vitamins, herbs, eye drops, creams, and oqfz-hhs-qutyapp medicines. Any problems you or family members [...] provider tells you to take them. ?Taking qgbi-jmn-vzykokw medicines, vitamins, herbs, and supplements. Eating and [...] provider. Document Revised: 08/27/2022 Document Reviewed: 12/23/2021 [employer] Patient Education 2022 [employer] Assist. Follow Up Care 12/22/2023 08:45:54 With:VANESSA LYLES, Bryant Carlos, URL Address: [facility] [address], [place] [id number] When: Unknown Comments:sched L URS/laser litho/possible stent plaement [facility] 12-23-2023 Note Patient Education Nephrology Laser Therapy [...] these instructions at home: Medicines ? Take fpdb-zds-thdaofm and prescription medicines only as told by [...] or treat constipation, such as: ? Take iypx-qyk-piiuwbf or prescription medicines. ? Eat foods that [...] provider. Document Revised: 08/27/2022 Document Reviewed: 12/23/2021 [email or web address] Patient Education ? 2022 [employer] Laser Therapy for Kidney Stones Laser [...] including vitamins, herbs, eye drops, creams, and zpdk-eis-xvynvcw medicines. ? Any problems you or family [...] by a f (more content not included)... [facility] 08-05-2023 History of Presen t illness Narrative Subjective: Gissel Del Rosario female who is 38 y.o. female who is s/p a DFK-VTR-voers of adhesions, endometriosis resection on 07/06/23. Pathology: [...] 2011 along with hysterectomy performed abdominally in 2015. Oncology History No history exists. Gissel Del [...] Procedure Laterality Date SECTION 2011 [facility] RESECTION ENDOMETRIOSIS WITH REPAIR N/A 07/06/2023 Performed by Luís Andres MD at [facility] LYSIS OF ADHESIONS X 60 MIN N/A 07/06/2023 Performed by Luís Andres MD at [facility] RESECTION MASS PERITONEAL/ SOFT TISSUE MASS REMOVAL POSTERIOR RECTUS SHEATH/EXCISIONAL DEBRIDMENT N/A 07/06/2023 Performed by Abundio Flynn MD at [facility] SALPINGO OOPHORECTOMY Bilateral 07/06/2023 Performed by Luís Andres MD at [facility] ENDOMETRIAL ABLATION 2013 ESOPHAGOGASTRODUODENOSCOPY 2009 HYSTERECTOMY 04/16/2015 partial LITHOTRIPSY 2012 TONSILLECTOMY 2012 Past Medical History: Diagnosis Date Anxiety Dental disease one chipped tooth, right upper very back of mouth Depression Dizziness Endometriosis GERD (gastroesophageal reflux disease) Hypertension Kidney stones Pelvic pain PONV (postoperative nausea and vomiting) Pulmonary embolism ([facility]) 11/29/2010 during Sciatica Sinus tachycardia [...] endometriosis. 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 May consider transdermal estrogen, [...] *This note was completed using a voice livestock producer system. Every effort was made to ensure accuracy. However, inadvertent computerized livestock producer errors may be present. .Total time spent [...] Wang 08/05/23 1126 documented in this encounter [facility] 08-03-2023 Miscellaneous Notes Spoke with patient to move up her appt on 08/05/23 to 11am, patient confirmed. documented in this encounter [facility] 08-03-2023 Telephone encounter Note Spoke with patient to move up her appt on 08/05/23 to 11am, patient confirmed. [facility] 07-30-2023 History of Presen t illness Narrative Subjective: Gissel Del Rosraio is a 38 y.o. female presented to [...] questions or concerns 5) follow-up with six-month Khai Robin PA-C [facility] [address] [place] [id number] SEBASTIAN Romero 07/30/23 1452 documented in this encounter [facility] 07-22-2023 History of Presen t illness Narrative Subjective: Gissel Del Rosario female who is 38 y.o. female who is s/p a YDB-QSG-zbapf of adhesions, endometriosis resection on 07/06/23. Pathology: [...] Luís Andres MD at [facility] LYS[facility] OF ADHESIONS X 60 MIN N/A 07/06/2023 Performed by Luís Andres MD at [facility] DAVINCI RESECTION MASS PERITONEAL/ SOFT TISSUE MASS REMOVAL POSTERIOR RECTUS SHEATH/EXCISIONAL DEBRIDMENT N/A 07/06/2023 Performed by Abundio Flynn MD at [facility] DAVINCI SALPINGO OOPHORECTOMY Bilateral 07/06/2023 Performed by Luís Andres MD at [facility] ENDOMETRIAL ABLATION 2014 ESOPHAGOGASTRODUODENOSCOPY 2010 HYSTERECTOMY [...] endometriosis. 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 May consider transdermal estrogen, [...] *This note was completed using a voice livestock producer system. Every effort was made to ensure accuracy. However, inadvertent computerized livestock producer errors may be present. .Total time spent [...] Wang 07/22/23 0933 documented in this encounter [facility] 07-13-2023 Miscellaneous Notes Patient called in with [...] scheduled for 07/21. documented in this encounter [facility] 07-13-2023 Telephone encounter Note Patient [...] questions. Post op appt scheduled for 07/21. [facility] 02-26-2024 Instructions Formatting of th is note might be different from the original. Your surgery/procedure is scheduled at [facility] on 07/06/2023 at 10 am Arrival Time 8 am [facility] Address: [address] [place] [address]. [place], [place] [address] Park in [address] Parking lot located on [facility]. Report to the Entrance B. Check in at the information desk the surgery. The waiting room located on the second floor. If you have any questions prior to surgery, please call Pre-Admission Clinic at [phone] between 7:30 am and 4:30 pm Thursday through Thursday. If you have questions the morning of surgery, please call the Pre-op Department at [phone]. Notify your SURGEON if you develop any [...] would like to schedule therapy at a [facility] facility, please call [phone] ([phone]). Do not use lotions, creams, powders, perfume, make up, cologne or after-shaves day of surgery. Remove ALL jewelry including wedding rings, body piercings,hair extensions that contain metal, nail maltese, make-up, and contact lens. You may brush [...] RIGHTS AND RESPONSIBILITIES As a patient at [facility], you have the right to: Receive medical care and be informed of who is taking care of you Be treated with dignity and respect Have a family member/software support representative of choice and your physician notified of your admission Receive information and actively participate in decisions about your care and treatment Refuse care, treatment and services Decide who may provide your support and speak for you Access [facility] and spiritual services Participate in ethical issues [...] of hospital charges and payment methods Patient/patient software support representative responsibilities are to: Provide information about health status to facilitate care, treatment and services Follow the treatment, plan, keep appointments and speak up when you do not understand the plan Respect the rights of other patients and healthcare personnel Follow organizational rules and regulations that support quality care and a safe environment Fulfill financial obligations as promptly as possible [facility] 06-29-2023 Miscellaneous Notes Your surgery/procedure is scheduled at [facility] on 07/06/2023 at 10 am Arrival Time 8 am [facility] Address: [address] [place] [address] in Parking lot located on [facility]. Report to the Entrance B. Check in at the information desk the surgery. The waiting room located on the second floor. If you have any questions prior to surgery, please call Pre-Admission Clinic at [phone] between 7:30 am and 4:30 pm Thursday through Thursday. If you have questions the morning of surgery, please call the Pre-op Department at [phone]. Notify your SURGEON if you develop any [...] would like to schedule therapy at a [facility] facility, please call [phone] ([phone]). Do not use lotions, creams, powders, perfume, make up, cologne or after-shaves day of surgery. Remove ALL jewelry including wedding rings, body piercings,hair extensions that contain metal, nail maltese, make-up, and contact lens. You may brush [...] RIGHTS AND RESPONSIBILITIES As a patient at [facility], you have the right to: Receive medical care and be informed of who is taking care of you Be treated with dignity and respect Have a family member/software support representative of choice and your physician notified of your admission Receive information and actively participate in decisions about your care and treatment Refuse care, treatment and services Decide who may provide your support and speak for you [facility] Participate in ethical issues [...] of hospital charges and payment methods Patient/patient software support representative responsibilities are to: Provide information about [...] promptly as possible documented in this encounter [facility] 06-17-2023 History of Presen t illness Narrative [...] personal or family history of GI or field marketing representative malignancies. We reviewed her imaging as well [...] and communicating with other health client care manager (not separately reported) Documenting clinical information in the electronic or other health record Luís Andres MD [facility] History of Presen t illness Narrative Associated Problem(s): Sinus tachycardia Symptoms stable with toprol and continue. 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 Associated Problem(s): Benign essential hypertension (CMS/HCC) BP remains low and stop zestoretic. Start lisinopril daily and monitor BP. Subjective Patient ID: Gissel Del Rosario is a 37 y.o. female who presents for Follow-up (1m). Follow up HTN, tachycardia, and abdominal mass. Patient continues to have abdominal pain. Seen by field marketing representative and felt mass related to endometriosis in [...] scar Continued pain and follow up with field marketing representative for surgery. documented in this encounter [facility] 06-03-2023 History of Presen t illness Narrative [...] personal or family history of GI or field marketing representative malignancies. We reviewed her imaging as well [...] and communicating with other health client care manager (not separately reported) Documenting clinical information in the electronic or other health record Luís Andres MD documented in this encounter [facility] 05-20-2023 Miscellaneous Notes Left VM to schedule [employer] appointment with field marketing representative onc. Requested US and CT images be pushed via PACS from [facility]. documented in this encounter [facility] 05-20-2023 Telephone encounter Note Left VM to schedule [employer]ER[employer] INST[employer]ER appointment with field marketing representative onc. Requested US and CT images be pushed via PACS from [facility]. [facility] 04-08-2023 History of Presen t illness Narrative [...] was negative but is to see a rehabilitation assistant to further work this up as well. Jeremy Jang MD documented in this encounter [facility] Work Phone: 03-24-2023 History of Presen [...] Noted Asthma (CMS/HCC) 10/10/2022 Benign essential hypertension (CMS/[facility]) 10/10/2022 Dysfunctional uterine bleeding 10/10/2022 Leukocytosis 10/10/2022 [...] hernia specialists. --I will discuss with her plumbing and heating contractor the value of abdominal exploration for additional [...] MPH @TIMECUR@ @DATECUR@ documented in this encounter [facility] Work Phone: 09-05-2022 Evaluation note Encounter [...] understanding and is agreeable with treatment plan. [employer] Other [id number] NotePROCEDURE: XR PELVIS W_OBL MIN 3 VIEWS COMPARISON: HISTORY: Disorder of sacrum FINDINGS: BONES:No fracture, acute abnormality, or significant arthropathy. SOFT TISSUES:Negative. No visible soft tissue swelling. EFFUSION:None visible. OTHER: Negative. IMPRESSION: No acute abnormality Electronically authenticated by: ASHLEY CARRANZA Date: 2021-09-28 07:58[facility]05-28-2022 NotePROCEDURE: XR TIB_FIB LT 2V COMPARISON: 07/17/2020 HISTORY: Pain in left leg FINDINGS: BONES:No acute fracture or dislocation. Stable sclerosis along the distal tibia. Enthesopathic spurring plantar calcaneus SOFT TISSUES:Negative. No visible soft tissue swelling. EFFUSION:None visible. OTHER: Negative. IMPRESSION: Stable exam, no interval change Electronically authenticated by: ASHLEY CARRANZA Date: 2021-09-28 07:56[facility] No data available for this section [facility] Evaluation note* Diagnosis Endometrioma- Primary Endometriosis, site unspecified documented in this encounter [facility] Work Phone: Evaluation note* Diagnosis Endometrioma Endometriosis, site unspecified documented in this encounter [facility] Work Phone: Evaluation note* Diagnosis Pelvic mass- Primary Abdominal or pelvic swelling, mass or lump, unspecified site Endometriosis Endometriosis, site unspecified 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 Diagnosis Pelvic mass- Primary Abdominal or pelvic swelling, mass or lump, unspecified site [facility]* Diagnosis Preop testing- Primary Unspecified pre-operative examination documented [facility]* Diagnosis Encounter for postoperative care- Primary Menopausal symptoms Symptomatic menopausal or female climacteric states Acute serous otitis media, recurrence not specified, unspecified laterality documented in this encounter [facility]* Diagnosis Muscle spasms of both lower extremities- Primary documented [facility]* Diagnosis Abdominal wall mass- Primary Abdominal or pelvic swelling, mass or lump, unspecified site [facility] Diagnosis Encounter for postoperative care- Primary Menopausal symptoms Symptomatic menopausal or female climacteric states [facility] Diagnosis Heart palpitations- Primary Palpitations Benign essential hypertension (CMS/HCC) Essential hypertension, benign Generalized anxiety disorder (CMS/HCC) Generalized anxiety disorder Hypokalemia Hypopotassemia Benign essential hypertension (CMS/HCC)- Primary Essential hypertension, benign Sinus tachycardia Other specified cardiac dysrhythmias Benign essential hypertension (CMS/HCC)- Primary Essential hypertension, benign Sinus tachycardia Other specified cardiac dysrhythmias 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 Endometriosis in scar of skin Left lateral epicondylitis- Primary [facility] - Reported* Type Description Date Medical History HTN (hypertension) Medical History Anxiety and depression Medical History migraine headache Medical History seasonal allergies Surgical History essure Surgical History EGD Surgical History C section Surgical History hysterectomy 2014 Hospitalization History PE Hospitalization History child x3 Hospitalization History demise x1 [employer] Other InstructionsNot on filedocumented in this encounter [...] available for this section [facility] Reason for referral (narrative)* Consultation (Routine) - Pending Review Specialty Diagnoses / Procedures Referred By Frankie salmon Referred To Contact General Surgery Diagnoses Pelvic mass Luís Andres MD [address] [place] [address] Abundio Flynn MD [address] [place] [address] Referral ID Status Reason Start Date Expiration Date Visits Requested Visits Authorized [id number] Pending Review Specialty Services Required 06/17/2023 06/16/2024 1 1 [facility] Summary Purpose Family History No Family History [...] MR pelvis without contrast Luís Andres MD [address] [place] [address], [place] [address] Referral ID Status Reason Start Date Expiration Date V isits Requested Visits Authorized [id number] Pending Review 06/03/2023 06/02/2024 1 1 Additional Source Comments INFORMATION SOURCE (unrecogn ized section and content) DATE CREATED AUTHOR 05/01/2022 [facility] DATE CREATED AUTHOR AUTHOR'S ORGANIZ ATION 08/10/2022 [facility] DATE CREATED AUTHOR AUTHOR'S ORGANIZ ATION 03/26/2023 [facility] DATE CREATED AUTHOR AUTHOR'S ORGANIZ ATION 05/24/2023 [facility] DATE CREATED AUTHOR AUTHOR'S ORGANIZ ATION 06/18/2023 [facility] DATE CREATED AUTHOR AUTHOR'S ORGANIZ ATION 09/27/2023 [facility] DATE CREATED AUTHOR AUTHOR'S ORGANIZ ATION 01/07/2024 [facility] DATE CREATED AUTHOR AUTHOR'S ORGANIZ ATION 01/14/2024 [facility] DATE CREATED AUTHOR AUTHOR'S ORGANIZ ATION 06/02/2024 [facility] Special[facility] EPIC REASON FOR VISIT (unrecogniz ed section and content) Reason Comments New Patient Visit Reason Comments Endometriosis Specialty Diagnoses / Procedures Referred By Contac t Referred To Contact General Surgery Diagnoses Endometrioma Vu Juarez MD M[facility] [address] [facility] Department of Surgery-Surgical Oncology [place] [phone] [place] [address] [facility] Department of Surgery-[place] [phone] Referral ID Status Reason Start Date Expiration Date Visits Requested Visits Authorized [id number] Authorized Specialty Services Required 3 03/30/2024 1 1 Reason Comments New Patient Pt states she has en dometriosis.Dr Taylor states he had hyst with ovaries retainedPt states she has severe pelvic pain. Pain has increased since August last yearPt states she has decreased appetite. Reason Comments Follow-up 1m Reason Comments Follow-up Reason Comments Post-op 1st po mass resectio n abd wall Reason Comments Follow-up Elbow pain Sinusitis Care Teams (unrecognized sec tion and content) Hand Etcher Helper Relationship Specialty Start Date End Date Joseph Sotelo MD PCP - General [facility] 03/18/23 Hand Etcher Helper Relationship Specialty Start Date End Date Joseph Sotelo MD [address] [place] [address] PCP - General [facility] 04/02/23 Hand Etcher Helper Relationship Specialty Start Date End Date Joseph Sotelo MD [address] [place] [address] PCP - General 01/29/17 Hand Etcher Helper Relationship Specialty Start Date End Date Joseph Sotelo MD [address] [place] [address] PCP - General 01/29/17 Hand Etcher Helper Relationship Specialty Start Date End Date Joseph Sotelo MD PCP - General Cardiology 10/15/22 Hand Etcher Helper Relationship Specialty Start Date End Date Joseph Sotelo MD PCP - General Cardiology 10/15/22 Hand Etcher Helper Relationship Specialty Start Date End Date Jospeh Sotelo MD [address] [place] [facility] [place] [address] PCP - General 01/29/17 Hand Etcher Helper Relationship Specialty Start Date End Date Joseph Sotelo MD [address] [place] [facility] [place] [address] PCP - General 01/29/17 Hand Etcher Helper Relationship Specialty Start Date End Date Joseph Sotelo MD [address] [place] [facility] [place] [place] [address] PCP - General 01/29/17 Hand Etcher Helper Relationship Specialty Start Date End Date Joseph Sotelo MD [address] [place] [facility] [place] [place] [address] PCP - General 01/29/17 Hand Etcher Helper Relationship Specialty Start Date End Date Joseph Sotelo MD [address] [place] [facility] [place] [place] [address] PCP - General 01/29/17 Hand Etcher Helper Relationship Specialty Start Date End Date Joseph Sotelo MD [address] [place] [facility] [place] [address] PCP - General 01/29/17 Hand Etcher Helper Relationship Specialty Start Date End Date Joseph Sotelo MD [address] [place] [place] [address] PCP - General 01/29/17 Hand Etcher Helper Relationship Specialty Start Date End Date Joseph Sotelo MD [address] [place] [address] PCP - General 01/29/17 Hand Etcher Helper Relationship Specialty Start Date End Date Joseph Sotelo MD [address] [place] [address] PCP - General 01/29/17 Hand Etcher Helper Relationship Specialty Start Date End Date Joseph Sotelo MD PCP - General Cardiology 10/15/22 Joseph Sotelo MD [address] [place] [id number] PCP - [employer] 08/03/23 Hand Etcher Helper Relationship Specialty Start Date End Date Joseph Sotelo MD PCP - General Cardiology 10/15/22 Joseph Sotelo MD [address] [place] [address] PCP - [employer] 08/03/23 Hand Etcher Helper Relationship Specialty Start Date End Date Joseph Sotelo MD PCP - General Cardiology 10/15/22 Joseph Sotelo MD [address] [place] [address] PCP - [employer] 08/03/23 Hand Etcher Helper Relationship Specialty Start Date End Date Joseph Sotelo MD [address] [place] [id number] [facility] 08/03/23 Joseph Sotelo MD [address] [place] [address] [facility] 05/31/24 Hand Etcher Helper Relationship Specialty Start Date End Date Joseph Sotelo MD [address] [place] [address] [facility] 08/03/23 Joseph Sotelo MD [address] [place] [address] [facility] 05/31/24 FOR RECORDS PERTAINING TO PATIENTS WHO ARE [...] BE BASED ON THE PRIMARY CLINICAL RECORDS. [facility]. provides no warranty or guarantee of the accuracy or completeness of information in this document.
[2024-06-02 10:59] LABS: Estimated Average Glucose 100 mg/dL; Glycohemoglobin A1C 5.1 % (4.5-6.2)
[2024-06-02 11:15] LABS: Free T3 1.91 pg/mL (2.18-3.98); Glucose 100 mg/dL (74-106); Thyroid Stimulating Hormone 0.326 uIU/mL (0.358-3.740)
[2024-06-02 13:04] LABS: Free T4 0.78 ng/dL (0.76-1.46)
[2024-06-03 04:07] LABS: DHEA-Sulfate 23.8 ug/dL (57.3-279.2); Estradiol <5.0 pg/mL (.); Progesterone <0.1 ng/mL (.)
[2024-06-03 08:13] LABS: C-Peptide, Serum 6.6 ng/mL (1.1-4.4); Insulin 29.3 uIU/mL (2.6-24.9)
[2024-06-03 19:08] LABS: Thyroglobulin Antibody <1.0 IU/mL (0.0-0.9); Thyroid Peroxidase (TPO) Ab <9 IU/mL (0-34)
[2024-06-05 14:07] LABS: Reverse T3, Serum 23.7 ng/dL (9.2-24.1)
[2024-06-05 17:07] LABS: Estrone, Serum <6 pg/mL (27-231)
[2024-06-05 22:06] LABS: Free Testosterone(Direct) <0.2 pg/mL (0.0-4.2); Testosterone <3 ng/dL (8-60)
[2024-06-06 12:08] LABS: Serotonin, Serum <5 ng/mL (31-207)
[2024-06-08 08:10] LABS: Cortisol, Free Dialysis, LCMS <0.020 ug/dL (.)
[2024-06-09 01:07] LABS: Thyroglobulin (TG-RIA) 15 ng/mL (.)
== END 2024-06-02 09:11 | disposition home or self-care (01) ==
PROVIDERS: PCP Family Medicine; Visit Provider Obstetrics & Gynecology
DX: L65.9 Nonscarring hair loss, unspecified (principal); E34.9 Endocrine disorder, unspecified; R45.86 Emotional lability
CPT/HCPCS: 36415; 82306; 82530; 82627; 82670; 82679; 82728; 82947; 83036; 83525; 84144; 84260; 84270; 84402; 84403; 84432; 84436; 84439; 84443; 84481; 84482; 84681; 86376; 86800

== ENCOUNTER 2024-07-04 20:40 | Outpatient (REF) | payer BC, SELFPAY ==
--- OUTSIDE RECORDS SUMMARY | 2024-07-04 20:45 | XMS_ITS | CCD ---
Author Organization [facility] Care Team Providers Care Production Generalist Name Role Phone JOSEPH SOTELO Primary Care Unavailable Kristopher Guerrero Admitting Unavailable ASHLEIGH, JOSEPH Carey Primary Care Unavailable Kristopher Guerrero Attending Unavailable ASHLEIGH, JOSEPH Carey Primary Care Unavailable NADJULIETTE, JOSEPH Carey Primary Care Unavailable NADJULIETTE, DR JOSEPH Carey Primary Care Unavailable NICOLAS ., DR BOWERS Admitting Unavailable NICOLAS ., DR BOWERS Attending Unavailable NICOLAS ., DR BOWERS Consulting Unavailable ZIEBER, DR BRIAN Carlos Consulting Unavailable FAWSHAIKH Neema PENNINGTON Consulting Unavailable SHAIKH KRISHNA H Admitting Unavailable NADERER, DR JOSEPH Carey Primary Care Unavailable FAEBONY, DE LEON H Attending Unavailable JAYDEN MORGAN Consulting Unavailable AYDIN CAMACHO Attending Unavailable ASHLEIGH, DR JOSEPH Carey Primary Care Unavailable DOUG, AYDIN Admitting Unavailable AYDIN CAMACHO Consulting Unavailable ASHLEIGH, DR JOSEPH Carey Primary Care Unavailable NICHOLE, DR ALLIE Carlos Consulting Unavailable NICHOLE, DR ALLIE Carlos Admitting Unavailable NICHOLE, DR ALLIE Carlos Attending Unavailable BRYCE, BINJULES Consulting Unavailable ASHLEIGH, DR JOSEPH Carey Primary [...] JOSEPH Carey Consulting Unavailable Hilary Staton Unavailable Ashleigh LYLES, Joseph Kirkpatrick Primary Care Provider [facility] Leal Attending Unavailable COMPA VALENZUELA Referring Unavailable ASHLEIGH, JOSEPH KIRKPATRICK Primary Care Unavailabl e Joseph Sotelo MD Primary Care Provider ASHLEIGH, JOSEPH Referring Unavailable NADERER, JOSEPH Primary Care Unavailable NADERER, JOSEPH Referring Unavailable NADERER, JOSEPH Primary Care Unavailable Joseph Sotelo MD Primary Care Provider LUÍS ANDRES Attending Unavailable NADERER, JOSEPH Referring Unavailable NADERER, JOSEPH Primary Care Unavailable LUÍS ANDRES Attending Unavailable NADERER, JOSEPH Referring Unavailable NADERER, JOSEPH Primary Care Unavailable NONE, XXXX Primary Care Physician Unavailab LUÍS Abel Admitting Unavailable LUÍS ANDRES Attending Unavailable LUÍS ANDRES Referring Unavailable NADERER, JOSEPH Primary Care Unavailable ELSI RICK Attending Unavailable NADERER, JOSEPH Primary Care Unavailable NADERER, JOSEPH Referring Unavailable NADERER, JOSEPH Primary Care Unavailable KHAI HERNDON Attending Unavailable NAYEREBreanna, JOSEPH Referring Unavailable NADERER, JOSEPH Primary Care Unavailable ABUNDIO WARREN Attending Unavailable NAYEREBreanna, JOSEPH Referring Unavailable NADERER, JOSEPH Primary Care Unavailable Bryant IGLESIAS Attending Unavailable Bryant IGLESIAS Attending Unavailable Bryant IGLESIAS Attending Unavailable Joseph Sotelo MD Unavailable Joseph Sotelo MD Primary Care Provider JOSEPH SOTELO Attending Unavailable COMPA VALENZUELA Attending Unavailable NADEREBreanna, JOSEPH Attending Unavailable COLIN CARROLL Attending Unavailable ASHLEIGH, JOSEPH Referring Unavailable NADERER, JOSEPH Primary Care Unavailable COLIN CARROLL Attending Unavailable ASHLEIGH, JOSEPH Referring Unavailable NADEREBreanna, JOSEPH Primary Care Unavailable LUÍS ANDRES Referring Unavailable NADEREBreanna, JOSEPH Primary Care Unavailable COLIN CARROLL Referring Unavailable NADERER, JOSEPH Primary Care Unavailable COLIN CARROLL Attending Unavailable NADERER, JOSEPH Referring Unavailable NADERER, JOSEPH Primary Care Unavailable Allergies Allergy Classification Reported Allergen(s) Allergy Type Date of Onset Reaction(s) Facility (10 sources) Solifenacin Drug Allergy 05-31-2024 [facility] Medications Current Medications Medication Drug Class(es) Dates Sig (Normalized) Sig (Original) acetaminophen 500 mg oral tablet (14 sources) Start: 07-07-2023 take 2 tablets by [...] headaches 60 tablet 2 03/28/2024 Active Start: 07-04-2014 Fioricet 325 m g-50 mg-40 mg Tab 1 tab(s), Oral, as needed for pain, Refill(s) 0 Start Date: 07/04/14 Status: Ordered acetaminophen 325 mg / HYDROcodone bitartrate 5 mg oral tablet (16 sources) Opioid Agonist Start: 02-24-2023 End: 06-10-2024 take 1 tablet by mouth every six hours HYDROcodone-acetaminophen ([place]) 5-325 MG tablet Take 1 tablet by mouth every 6 (six) hours. 02/24/2023 06/10/2024 Discontinued apixaban 2.5 mg oral tablet (7 sources) Factor Xa Inhibitor Start: 07-07-2023 End: 06-02-2024 take 1 tablet by mouth in the morning apixaban (Eliquis) 2.5 MG tablet Take 2.5 mg by mouth in the morning and 2.5 mg in the evening. 07/07/2023 06/02/2024 Discontinued (Other) atenolol 25 mg oral tablet (3 sources) beta-Adrenerg ic Fredi Start: 04-29-2017 take 0.5 tablet by mouth once daily atenolol (Tenormin) 25 mg tablet Take 0.5 tablets (12.5 mg) by mouth once daily. 0 04/29/2017 Active Atenolol Active Baclofen (3 sources) gamma-Aminobutyric Acid-ergic Agonist Start: 12-23-2023 baclofen Oral, TID, Refills(s) 0 Start Date: 12/23/23 Status: Ordered Start: 03-24-2023 End: 04-23-2023 take 1 tablet by mouth three times daily as needed for muscle spasms baclofen (Lioresal) 10 mg tablet Indications: Endometrioma Take 1 tablet (10 mg) by mouth 3 times a day as needed for muscle spasms. 90 tablet 0 03/24/2023 04/23/2023 Active cefdinir (1 source) Cephalosporin Antibacterial Start: 12-23-2023 cefdinir Oral Start Date: 12/23/23 Status: Ordered cephalexin 500 mg oral capsule (1 source) Cephalosporin Antibacterial Start: 12-21-2023 take 1 capsule by mouth three times daily cephalexin (Keflex) 500 MG capsule TAKE 1 CAPSULE BY MOUTH THREE TIMES DAILY FOR 7 DAYS 12/21/2023 Active cholecalciferol 0.05 mg oral tablet (19 sources) Vitamin D Start: 02-05-2023 take 1 tablet by mouth in the morning cholecalciferol (Vitamin D-3) 50 MCG (1999 UT) tablet Take 1 tablet by mouth in the morning. 02/05/2023 Active docusate sodium 100 mg oral capsule (2 sources) Start: 03-10-2023 take 1 capsule by mouth twice daily for constipation docusate sodium (Colace) 100 mg capsule take 1 capsule by mouth twice a day if needed for constipation up to 10 days 0 03/10/2023 Active DULoxetine 60 mg delayed release oral capsule (20 sources) Serotonin and Norepinephrine Reuptake Inhibitor Start: 06-10-2024 take 1 capsule by mouth once daily DULoxetine (Cymbalta) [address] capsule Indications: Major depressive disorder, recurrent episode, mild (HCC) (CMS/HCC) Take 1 capsule (60 mg) by mouth Daily 06/10/2024 Active Start: 06-10-2024 take 1 capsule by mo ut once daily DULoxetine (Cymbalta) [address] capsule Indications: Major depressive disorder, recurrent episode, mild (HCC) (CMS/HCC) Take 1 capsule (60 mg) by mouth Daily 06/10/2024 Active Start: 03-14-2024 End: 06-10-2024 DULoxetine (Cymbalta) [address] capsule Indications: Major depressive disorder, recurrent episode, mild (HCC) (CMS/HCC) TAKE 1 CAPSULE TWICE A DAY 180 capsule 3 03/14/2024 06/10/2024 Discontinued (Dose adjustment) Start: 12-23-2023 take 1 capsule by mo uth once daily duloxetine 60 mg oral delayed release capsule 60 mg = 1 cap(s), Oral, Daily Start Date: 12/23/23 Status: Ordered Start: 01-28-2021 take 2 capsules by [facility] once daily DULoxetine (Cymbalta) [address] capsule Take 2 capsules (120 mg) by mouth once daily. 0 01/28/2021 Active Cymbalta Active FLUoxetine 20 mg oral capsule (3 sources) Serotonin Reuptake Inhibitor Start: 06-10-2024 take 1 capsule by mouth once daily FLUoxetine (PROzac) 20 MG capsule Indications: Major depressive disorder, recurrent episode, mild (HCC) (CMS/HCC) Take 1 capsule (20 mg) by mouth Daily 30 capsule 5 06/10/2024 Active Start: 06-10-2024 take 1 capsule by [facility] once daily FLUoxetine (PROzac) 20 MG capsule Indications: Major depressive disorder, recurrent episode, mild (HCC) (CMS/HCC) Take 1 capsule (20 mg) by mouth Daily 30 capsule 5 06/10/2024 Active ibuprofen 800 mg oral tablet (14 sources) Nonsteroidal Anti-inflammatory Drug Start: 07-07-2023 take 1 tablet by mouth every eight hours as needed for pain and pain ibuprofen 800 MG tablet Take 800 mg by mouth every 8 (eight) hours if needed for mild pain or moderate pain 07/07/2023 Active lansoprazole 15 mg delayed release oral capsule (1 source) Proton Pump Inhibitor Start: 07-04-2014 take 1 capsule by mouth once daily lansoprazole 15 mg Cap-EC 15 mg = 1 cap(s), Oral, Daily, Refills(s) 0, Control of stomach acid Start Date: 07/04/14 Status: Ordered lisinopril 10 mg oral tablet (17 sources) Angiotensin Converting Enzyme Inhibitor Start: 12-02-2023 End: 12-01-2024 take 1 tablet by mouth in the morning lisinopril 10 MG tablet Indications: Benign essential hypertension (CMS/HCC) Take 1 tablet (10 mg) by mouth in the morning. 90 tablet 3 12/02/2023 12/01/2024 Active Start: 06-11-2023 take 1 tablet by rosa in the morning lisinopril 10 MG tablet Indications: Benign essential hypertension (CMS/HCC) Take 1 tablet (10 mg) by mouth in the morning. 30 tablet 3 06/11/2023 Active Start: 07-04-2014 take 1 tablet by rosa th once daily lisinopril 20 mg Tab 20 mg = 1 tab(s), Oral, Daily, Refills(s) 0, High blood pressure Start Date: 07/04/14 Status: Ordered methylcellulose 2000 mg powder for oral suspension (2 sources) methylcellulose oral powder Take by mouth once daily. 0 Active 24 hr metoprolol succinate 25 mg extended release oral tablet (18 sources) beta-Adrenergic Fredi Start: 12-23-19 take 1 tablet by mouth once daily [...] (25 mg) by mouth in the morning. Do not crush or chew.. 30 tablet 2 05/06/2023 Active 24 hr mirabegron 50 mg extended release oral tablet (9 sources) beta3-Adrenergic Agonist Start: 12-30-2023 End: 06-10-2024 take 1 tablet by mouth once daily, then take 1 tablet by mouth every twenty-four hours mirabegron ER (Myrbetriq) 50 MG 24 hr tablet Take 50 mg by mouth Daily 12/30/2023 06/10/2024 Discontinued omeprazole 40 mg delayed release oral capsule (20 sources) Proton Pump Inhibitor Start: 10-28-2023 omeprazole (PriLOSEC) [address] capsule Indications: Gastroesophageal reflux disease with esophagitis, unspecified whether hemorrhage TAKE 1 CAPSULE DAILY 90 capsule 3 10/28/2023 Active Start: 01-13-2015 take 1 capsule by mo uth once daily omeprazole (PriLOSEC) [address] capsule Take 1 capsule (40 mg) by mouth once daily. 0 01/13/2015 Active Omeprazole Activ e ondansetron 4 mg oral tablet (16 sources) Serotonin-3 Receptor Antagonist Start: 12-23-2023 take [...] (eight) hours if needed. 0 02/24/2023 Active OXcarbazepine 300 mg oral tablet (17 sources) Anti-epileptic Agent Start: 09-14-2023 OXcarbaze pine (Trileptal) 300 MG tablet Indications: Major depressive disorder, recurrent episode, mild (HCC) (CMS/HCC) TAKE 1 TABLET TWICE A DAY 180 tablet 3 09/14/2023 Active Start: 03-15-2023 take 1 tablet by rosa th twice daily OXcarbazepine (Trileptal) 300 mg tablet Take 1 tablet (300 mg) by mouth 2 times a day. 0 03/15/2023 Active Ozempic (1 source) Ozempic Active Ozempic 0.25 mg or 0.5 mg (2 mg/3 mL) pen injector (2 sources) Start: 03-09-20 Ozempic 0.25 mg or 0.5 mg (2 mg/3 mL) pen injector Ozempic, 0.25 or 0.5 MG/DOSE, 2 MG/3ML solution pen-injector (12 sources) Start: 03-03-20 24 inject 0.5 mg by subcutaneous injection every week Ozempic, 0.25 or 0.5 MG/DOSE, 2 MG/3ML solution pen-injector Indications: Morbid obesity (CMS/HCC) INJECT 0.5 MG UNDER THE SKIN ONCE WEEKLY 9 mL 3 03/03/2024 Active polyethylene glycol 3350 72947 mg powder for oral solution (19 sources) Osmotic Laxative take 17 g by mouth once polyethylene glycol, PEG, 3350 (Miralax) 17 g packet Take 17 g by mouth 1 (one) time Active potassium bicarbonate 20 meq effervescent oral tablet (10 sources) Start: 03-11-20 Effer-K 20 MEQ effervescent tablet 03/11/2024 Active predniSONE 10 mg oral tablet (7 sources) Start: 06-14-19 take 6 tablets by mouth once daily, then take 4 tablets by mouth once daily, then take 2 tablets by mouth once daily, then take 1 tablet by mouth once daily predniSONE (Deltasone) 10 MG tablet Indications: Left lateral epicondylitis 6 PO daily x 3 days, 4 PO daily x 3 days, 2 PO daily x 3 days, 1 PO daily x 3 days 39 tablet 06/14/2024 Active Start: 05-31-2024 End: 06-06-2024 take 1 tablet by mouth once daily predniSONE (Deltasone) 50 MG tablet Indications: Left lateral epicondylitis Take 1 tablet (50 mg) by mouth Daily for 6 days 6 tablet 05/31/2024 06/06/2024 Active promethazine hydrochloride 50 mg oral tablet (20 sources) Phenothiazine Start: 03-28-2024 take 1 tablet by mouth every six hours for nausea promethazine (Phenergan) 50 MG tablet Indications: Nausea and vomiting, unspecified vomiting type Take 1 tablet (50 mg) by mouth every 6 (six) hours if needed for nausea or vomiting 30 tablet 1 03/28/2024 Active Start: 04-16-2023 take 1 tablet by rosa th every six hours for nausea promethazine (Phenergan) 50 MG tablet Indications: Nausea and vomiting, unspecified vomiting type Take 1 tablet (50 mg) by mouth every 6 (six) hours if needed for nausea or vomiting 30 tablet 1 04/16/2023 Active Start: 07-04-2014 End: 08-23-2023 take 1 tablet by mouth every four hours for nausea and nausea promethazine (Phenergan) 25 MG tablet Indications: Nausea Take 1 tablet (25 mg) by mouth every 4 (four) hours 180 tablet 1 05/25/2023 08/23/2023 Active 0.25 mg, 0.5 mg dose 1.5 ml semaglutide 1.34 mg/ml pen injector (17 sources) Start: 06-13-2022 inject 0.25 mg by subcutaneous injection every week Ozempic, 0.25 or 0.5 MG/DOSE, 2 MG/1.5ML solution pen-injector Inject 0.25 mg under the skin 1 (one) time per week. 06/13/2022 Active tamsulosin hydrochloride 0.4 mg oral capsule (12 sources) alpha-Adrener gic Fredi Start: 12-21-2023 tamsulosin (Flomax) 0.4 MG 24 hr capsule 12/21/2023 Active topiramate 50 mg oral tablet (20 sources) Start: 12-16-2023 topiramate 50 MG tablet Indications: Chronic migraine without aura without status migrainosus, not intractable (CMS/HCC) TAKE 1 TABLET TWICE A DAY 180 tablet 3 12/16/2023 Active Start: 11-01-2018 take 1 tablet by rosa th in the morning topiramate 50 MG tablet Take 50 mg by mouth in the morning. 0 01/07/2023 Active Topiramate Activ e Completed/Discontinued Medications Medication [...] for antibiotics Start Date: 07/13/14 Status: Ordered cefTRIAXone (1 source) Cephalosporin Antibacterial Start: 03-14-2017 Rocephin 500 mg Mar, 500 mg fluticasone propionate 0.05 mg/actuat metered dose nasal spray (1 source) Corticosteroid Start: 04-26-2019 take 1 spray(s) nasal route once daily Fluticasone Propionate 50 MCG/ACT 1 spray in each nostril Nasally Once a day for 30 day(s) Apr, Not-Taking hydroCHLOROthiazide 12.5 mg / lisinopril 20 mg oral tablet (4 sources) Thiazide Diuretic, Angiotensin Converting Enzyme Inhibitor Start: 03-25-2023 End: 06-11-2023 take 0.5 tablet by mouth in the morning lisinopril-hydro CHLOROthiazide 20-12.5 MG tablet Take 0.5 tablets by mouth in the morning. 0 03/25/2023 06/11/2023 Discontinued take 1 tablet by rosa once daily lisinopriL-hydrochlorothiazide 20-12.5 m g tablet Take 1 tablet by mouth once daily. 0 Active lamoTRIgine (1 source) Mood Stabilizer, Anti-epileptic Agent LaMICtal Not-Taking Problems Active Problems Problem Classification Problem Date Documented Da te Episodic/Chronic Acute and chronic tonsillitis (1 source) Chronic tonsillitis 07-04-2014 Chronic Anxiety disorders (20 sources) Generalized anxiety [...] ovary, unspecified ovary] Onset: 3 Esophageal disorders (20 sources) Gastroesophageal reflux disease; Translations: [GERD (gastroesophageal reflux disease)] Onset: 5 03-24-2023 Chronic Essential hypertension (20 sources) Essential (primary) hypertension; Translations: [Benign essential hypertension] Onset: 5 03-24-2023 Chronic Gastrointestinal hemorrhage (1 source) Rectal hemorrhage; Translations: [Rectal bleed] Episodic Headache; including migraine (17 sources) Chronic migraine without aura; Translations: [Chronic migraine without aura, not intractable, without status migrainosus] Onset: 3 04-08-2023 Chronic Malaise and fatigue (6 sources) Fatigue; Translations: [Chronic fatigue, unspecified] Onset: 5 06-10-2024 Chronic Malaise and fatigue (2 sources) Fatigue 06-10-2024 Episodic Menopausal disorders (1 source) Menopausal and female climacteric states; Translations: [Menopausal and female climacteric states] Onset: 4 Chronic Mood disorders (20 sources) Recurrent major depressive episodes, moderate ; Translations: [Major depressive disorder, recurrent, moderate] Onset: 8 03-24-2023 Chronic Mood disorders (2 sources) Disturbance in mood; Translations: [Emotional lability] 06-02-2024 Episodic Nutritional deficiencies (17 sources) Vitamin D deficiency; Translations: [Vitamin D deficiency, unspecified] Onset: 3 04-08-2023 Chronic Osteoarthritis (1 source) Arthritis 12-23-2023 Chronic Other connective tissue disease (12 sources) Lateral epicondylitis of left humerus; Translations: [Lateral epicondylitis, left elbow] Onset: 5 05-31-2024 Episodic Other endocrine disorders (2 sources) Disorder of endocrine system; Translations: [Endocrine disorder, unspecified] 06-02-2024 Episodic Other eye disorders (1 source) Other specified disorders of eye and adnexa Episodic Other female genital disorders (19 sources) Abnormal uterine bleeding; Translations: [Other specified abnormal uterine and vaginal bleeding] Onset: 3 03-24-2023 Chronic Other gastrointestinal disorders (1 source) Irritable bowel syndrome; Translations: [IBS (irritable bowel syndrome)] Chronic Other gastrointestinal disorders (1 source) Constipation; Translations: [Constipation] Episodic Other gastrointestinal disorders (1 source) Diarrhea; Translations: [Diarrhea] Episodic Other non-traumatic joint disorders (1 source) Pain in unspecified joint; Translations: [Pain in unspecified joint] Onset: 5 Episodic Other nutritional; endocrine; and metabolic disorders (17 sources) Metabolic syndrome X; Translations: [Metabolic syndrome] Onset: 3 04-08-2023 Chronic Other screening for suspected conditions (not mental disorders or infectious disease) (8 sources) Decreased cortisol level; Translations: [Other specified abnormal findings of blood chemistry] Onset: 5 06-10-2024 Episodic Other skin disorders (1 source) Localized swelling, mass and lump, trunk; Translations: [Localized swelling, mass and lump, trunk] Onset: 4 Episodic Other skin disorders (2 sources) Loss of hair; Translations: [Nonscarring hair loss, unspecified] 06-02-2024 Episodic Pulmonary heart disease (2 sources) Personal history of pulmonary embolism; Translations: [Pulmonary embolism] Onset: 2 07-04-2014 Episodic Comment on above: hx of 5 in 11 Residual codes; unclassified (1 source) Pain, unspecified; Translations: [Pain, unspecified] Onset: 4 Episodic Spondylosis; intervertebral disc disorders; other back problems (17 sources) Degeneration of lumbar intervertebral disc; Translations: [Other intervertebral disc degeneration, lumbar region] Onset: 3 04-08-2023 Chronic Unclassified (1 source) New Patient Onset: 4 Unclassified (1 source) Establish Care Onset: 4 Unclassified (1 source) Post-op Onset: 4 Past or Other Problems Problem Classification Problem Date Documented Da te Episodic/Chronic Abdominal pain (5 sources) Left sided abdominal pain; Translations: [Left sided abdominal pain] Onset: 06-04-2023 Episodic Asthma (19 sources) Asthma; Translations: [Unspecified asthma, uncomplicated] Onset: 10-10-2022 Resolved: 04-08-2023 03-24-2023 Chronic Cardiac dysrhythmias (19 sources) Sinus tachycardia; Translations: [Tachycardia, unspecified] Onset: 04-08-2023 05-06-2023 Episodic Diseases of white blood cells (17 sources) Leukocytosis; Translations: [Elevated white blood cell count, unspecified] Onset: 10-10-2022 Resolved: 04-08-2023 04-08-2023 Chronic Fluid and electrolyte disorders (17 sources) Hypokalemia; Translations: [Hypokalemia] Onset: 04-08-2023 04-08-2023 Episodic Genitourinary symptoms and ill-defined conditions (2 sources) Blood in urine; Translations: [Hematuria, unspecified] Onset: 11-29-2014 03-24-2023 Episodic Other aftercare (1 source) Encounter for other specified surgical aftercare; Translations: [Encounter for other specified surgical aftercare] Onset: 07-22-2023 Episodic Other complications of (2 sources) Hereditary disease in family possibly affecting fetus; Translations: [Maternal care for (suspected) hereditary disease in fetus, not applicable or unspecified] Onset: 03-24-2011 03-24-2023 Episodic Other connective tissue disease (5 sources) Pain in right leg; Translations: [PAIN IN RIGHT LEG] Onset: 12-30-2021 Episodic Other connective tissue disease (4 sources) Pain in left leg; Translations: [PAIN IN LEFT LEG] Onset: 09-27-2021 Episodic Other female genital disorders (4 sources) Other specified noninflammatory disorders of vagina; Translations: [OTH SPEC NONINFLAMMATORY D/O VAGINA] Onset: 08-20-2021 Episodic Other gastrointestinal disorders (2 sources) Intra-abdominal and pelvic swelling, mass and lump, unspecified site; Translations: [Intra-abdominal and pelvic swelling, mass and lump, unspecified site] Onset: 06-04-2023 Episodic Other lower respiratory disease (1 source) Pleurodynia; Translations: [PLEURODYNIA] Onset: 12-31-2021 Episodic Other nervous system disorders (1 source) Other acute postprocedural pain; Translations: [Other acute postprocedural pain] Onset: 07-06-2023 Episodic Other non-traumatic joint disorders (19 sources) Joint pain; Translations: [Pain in unspecified joint] Onset: 04-08-2023 04-08-2023 Episodic Other nutritional; endocrine; and metabolic disorders (18 sources) Morbid obesity; Translations: [Morbid (severe) obesity due to excess calories] Onset: 04-08-2023 Resolved: 06-10-2024 04-08-2023 Chronic Otitis media and related conditions (1 source) Acute serous otitis media, unspecified ear; Translations: [Acute serous otitis media, unspecified ear] Onset: 07-22-2023 Episodic Phlebitis; thrombophlebitis and thromboembolism (19 sources) History of thromboembolism of vein; Translations: [...] Test Name Value Interpretation Reference Range Facility Aldosterone [Mass/Vol]on ALDOSTERONE 4.9 ng/dL Normal [facility] Comment on above: Result Comment: NOTE INTERPRETIVE INFORMATION: Aldosterone, Serum Reference intervals for age 15 and older: Upright ......... 4.0 - 31.0 ng/dL Supine .......... Less than or equal to 16.0 ng/dL Unspecified ..... Less than or equal to 31.0 ng/dL Normal serum levels of aldosterone are dependent on the sodium intake and whether the patient is upright or supine. High sodium intake will tend to suppress serum aldosterone, whereas low sodium intake will elevate serum aldosterone. The reference intervals for serum aldosterone are based on normal sodium intake. Access complete set of age- and/or gender-specific reference intervals for this test in the [employer] [facility] Test Directory (PrintLess Plans). Performed By: [facility] [address] [place] [address] [employer] Drier: Saw Ochoa MD, PhD CLIA Number: [id number] Performed By: #### 1 763-2 #### [facility] ([id number]) [address] [place] [address], [place] [address] C REACTIVE PROTEINon 025 CRP [Mass/Vol] mg/L Normal 0.000-0.744 [facility] Comment on above: Performed By: #### 1 988-5, 75661-4, 42508-0, 50122-0 #### [facility] ([id number]) [address] [place] [address], [address] [place] [address] #### [id number] #### [facility] ([id number]) [address] [place] [address] C-reactive proteinon 025 CRP [Mass/Vol] mg/L 0.000 - 0.744 mg/dL [facility] Comment on above: PERFORMED AT [facility] [address] [facility],[place] [address] CRP [Mass/Vol]on 2024 [facility] Corticotropin (P) [Mass/Vol] on 2024 Adrenocorticotropic Hormone, P <5.0 Low [facility] Comment on above: Result Comment: NOTE REFERENCE VALUE 7.2-63 (a.m. collection) Test Performed by: [place] [address] [employer]: Kisha Valdez Ph.D.; CLIA# [id number] Performed By: #### 1 988-5, 63052-7, 19160-4, 80022-1 #### [facility] ([id number]) [address] [address], [address] [place] [address] #### 2141-0 #### [facility] ([id number]) [address] [place] [address] Cortisol [Mass/Vol]on 2024 CORTISOL 2.9 ug/dL Normal [facility] Comment on above: Result Comment: Due to the diurnal variation of cortisol levels in normal subjects, all cortisol measurements should be referenced to the time of day of sample collection. AM Cortisol Age>=6 6.7-22.4 ug/dL PM Cortisol Age>=6 <10 ug/dL Performed By: #### 2 143-6 #### [facility] ([id number]) [address], [address] [place] [address] ESR Photometric method (Bld) [Velocity]on 2024 ESR, ERYTHROCYTE SEDIMENTATION RATE 2 mm/h Normal 0-20 [facility] Comment on above: Performed By: #### 1 988-5, 82850-0, 32751-7, 24110-9 #### [facility] ([id number]) [address], [address] [place] [address] #### 2141-0 #### [facility] ([id number]) [address] [place] [address] Nuclear Ab IA Ql (S)on 06-15 JASON Screen w/reflex Negative Normal NEG [facility] Comment on above: Result Comment: Testing performed using multiplex flow immunoassay. Eleven different antigens associated with systemic autoimmune diseases (dsDNA,Sm,Sm/MACHINE MADE SHOE UNIT WORKER,MACHINE MADE SHOE UNIT WORKER,Chromatin, SSA,SSB,Radha-1,Scl70,Ribo P,Centromere B) are included in this screening test. Performed By: #### 1 988-5, 25777-1, 79163-4, 88612-2 #### [facility] ([id number]) [address] [facility] [place] [address] #### 2141-0 #### [facility] ([id number]) [address] [place] [address] Rheumatoid factor Nephelomet ry Qn (S)on 2024 RHEUMATOID FACTOR <10 Normal <20 [facility] Comment on above: Performed By: #### 1 988-5, 08192-0, 30591-9, 27007-0 #### [facility] ([id number]) [address], [address] [place] [address] #### 2141-0 #### [facility] ([id number]) [address] [facility], [place] [address] [facility] HEMOGLOBIN A1Con 025 Glucose [Mass/Vol] 100 mg/dL [facility] HbA1c (Bld) [Mass fraction] 5.1 % 4.5 - 6.2 % [facility] Comment on above: ADA RECOMMENDED LIMI T 4.0 - 6.0 ADA THERAPEUTIC TARGET < 7.0 ACTION SUGGESTED > 7.[facility]2024 Urea nitrogen [Mass/Vol] 14 mg/dL 7.0 - 18.0 mg/dL [facility] ALL CARBON DIOXIDEon 024 CO2 [Moles/Vol] 27.6 mmol/L 21.0 - 32.0 mmol/L [facility] ALL CHLORIDEon 03-05-2024 Chloride [Moles/Vol] 109 mmol/L High 98 - 10 7 mmol/L [facility] ALL PHOSPHOROUSon 03-05-2024 Phosphate [Mass/Vol] 3.7 mg/dL 2.6 - 4 .7 mg/dL [facility] ALL SODIUMon 03-05-2024 Sodium [Moles/Vol] 145 mmol/L 136 - 145 mmol/L [facility] ALL URIC ACIDon 03-05-2024 Urate [Mass/Vol] 4.3 mg/dL 2.6 - 6.0 mg/dL [facility] CALCIUMon 03-05-2024 Calcium [Mass/Vol] 8.1 mg/dL Low 8.5 - 10. 1 mg/dL [facility] No Panel Informationon 03-05 Interpretation and review of laboratory results Abnormal [facility] CLINISY[facility] CREATININEon 03-05-2024 Creatinine [Mass/Vol] 0.97 mg/dL 0.55 - 1.02 mg/dL [facility] GFR/1.73 sq M.predicted CKD-EPI (S/P/Bld) [Vol rate/Area] >60 >=60 mL/min/1.73m 2 [facility] EGFR-NON AF RUSSIAN >60 >=60 mL/min/1.73m 2 [facility] APTTon 12-24-2023 aPTT Coag (Bld) [Time] 31.6 s NO [facility] PROT[facility]OMBIN TIME INR W/O COUMon 12-24-2023 PT Coag (PPP) [Time] 10.[address] [facility] TBH INR 0.99 [facility] Comment on above: DESIRED INR: 2.0-3.0 CONDITIONS NOT LISTED BELOW 2.5-3.5 FOR PROSTHETIC HEART VALVE REPLACEMENT 2.5-3.5 RECURRENT THROMBOSIS URINE CULTURE, ROUTINEon Bacteria identified Cx Nom (U) Urine Culture, Routine [facility] Bacteria identified Cx Nom (U) Mixed urogenital jack [facility] Bacteria identified Cx Nom (U) 25,000-50,000 colony forming units per mL [facility] Bacteria identified Cx Nom (U) Performed at: [facility] Bacteria identified Cx Nom (U) [address] [place] [phone] [facility] Bacteria identified Cx Nom (U) Logging Tractor Operator Swamp: Armand Samuels PhD, Phone: [phone] [facility] Ambulatory Visit Summaryon 0 12-23-2023 Ambulatory Visit Summary Ambulatory Visit Summary GISSEL DEL ROSARIO :1985 Visit Date:12/23/2023 Ambulatory Visit Instructions Your Diagnosis Kidney stones Left ureteral stone Flank pain Your Care Team Attending Physician - VANESSA LYLES, Bryant Carlos Primary Care Physician - NONE, XXXX This Is Your Medications List Contact prescribing physician if questions or concerns APAP/butalbital/caf feine (Fioricet 325 mg-50 mg-40 mg Tab) amoxicillin [...] Procedures Performed tonsillectomy (07/13/2014), Colonoscopy, Endometrial ablation, Esophagogastroduode noscopy, Hysterectomy, Tubal ligation. Discharge Vitals Heart Rate (Peripheral) 84 Respiratory Rate 16 Blood Pressure 144/104 Height 153 cm Height 60 in Weight 70.0 kg Weight 154 lb BMI 29.9 What to do next You Need to Schedule the Following Appointments Follow Up with VANESSA LYLES, FRANK Salazar When: Comments: sched L URS/laser litho/possible stent plaement Where: [facility] [address], [place] [phone] Medications What How Much When Instructions Unchanged [...] these instructions at home: Medicines ? Take tmcy-hrl-cjvujgy and prescription medicines only as told by your health care provider. ? If you were prescribed an antibiotic medicine, take it as told by your health care provider. Do not stop taking the antibiotic even if you start to feel better. ? As (more content not included)... Normal [facility] Urology Office/Clinic Noteon 12-23-2023 Urology Office/Clinic Note Urology Office/Clinic Note Chief Complaint NEW PT. hospital follow up HPI Staff New Pt. Pt was seen at [facility] due to abdominal pain. KUB 12/21/23, [...] female new pt here for f/u to [facility] ER visit due to kidney stones.. 1. Kidney stones (N20.0: Calculus of kidney) Hx of kidney stones, never required intervention. Saw Dr. Briones, urologist in [place], in the past. CT AP wo con [...] When Contact Information VANESSA LYLES, Bryant Carlos, [facility] [address], [place] [address]- [phone] Additional Instructions: sched L URS/laser litho/possible stent [...] Left ureteral (more content not included)... Normal [facility] Comment on above: Result Comment: Elec [...] fairly unremarkable appearance of the left femur. 1 Finalized by Solomon Roberson MD on 09/26/2023 9:30 AM Normal [facility] XR HIP LT 2-3 [...] spaces well-preserved. IMPRESSION: 1. No acute findings. 0 Finalized by Braulio Menchaca MD on 09/26/2023 6:59 PM Normal [facility] BASIC METABOLIC PANLon 07-05 Anion gap [Moles/Vol] 7 mmol/L Normal 5-15 [facility] Comment on above: Performed By: #### B AZIN CBCA #### [facility] ([id number]) [address] [place] [address] Calcium [Mass/Vol] 7.8 mg/dL Low 8.5-10.5 [facility] Comment on above: Performed By: #### B ZAIN CBCA #### [facility] ([id number]) [address] [place] [address] Chloride [Moles/Vol] 111 mmol/L High 98-109 [facility] Comment on above: Performed By: #### B ZAIN CBCA #### [facility] ([id number]) [address], [address] [place] [address] CO2 [Moles/Vol] 22 mmol/L Normal 22-32 [facility] Comment on above: Performed By: #### B ZAIN CBCA #### [facility] ([id number]) [address] [address] [place] [address] Creatinine [Mass/Vol] 0.62 mg/dL Normal 0.40-1.00 [facility] Comment on above: Result Comment: METH OD TRACEABLE TO IDMS STANDARD Performed By: #### B ZAIN CBCA #### [facility] ([id number]) [address] [place] [address] eGFR (CKD-EPI) NON-RACE DEPENDENT >90 Normal >59 [facility] Comment on above: Result Comment: Reported eGFR is based on the CKD-EPI 2020 equation that does not use a race coefficient. Performed By: #### B ZAIN CBCA #### [facility] ([id number]) [address] [place] [address] Glucose [Mass/Vol] 118 mg/dL High 65-99 [facility] Comment on above: Performed By: #### B ZAIN CBCA #### [facility] ([id number]) [address] [place] [address] Potassium [Moles/Vol] 3.6 mmol/L Normal 3.5-5.0 [facility] Comment on above: Performed By: #### B ZAIN CBCAurelio #### [facility] ([id number]) [address] [address] [place] [address] Sodium [Moles/Vol] 140 mmol/L Normal 134-146 [facility] Comment on above: Performed By: #### B ZAIN CBCA #### [facility] ([id number]) [address] [address] [place] [address] Urea nitrogen [Mass/Vol] 10 mg/dL Normal 5-23 [facility] Comment on above: Performed By: #### B ZAIN CBCA #### [facility] ([id number]) [address] [place] [address] CBC AND AUTO DIFFon 07-06-19 24 ABSOLUTE BASOPHIL 0.0 X10E9/L Normal 0.0-0.2 [facility] Comment on above: Performed By: #### B MP, CBCA #### [facility] ([id number]) [address] [place] [address] ABSOLUTE NEUTROPHIL 12.5 X10E9/L High 1.5-6.6 [facility] Comment on above: Performed By: #### B MP, CBCA #### [facility] ([id number]) [address] [place] [address] Basophils/100 WBC (Bld) 0.1 % Normal [facility] Comment on above: Performed By: #### B MP, CBCA #### [facility] ([id number]) [address] [address] [place] [address] Eosinophils (Bld) [#/Vol] 0.0 10*3/uL Normal 0.0-0.4 [facility] Comment on above: Performed By: #### B MP, CBCA #### [facility] ([id number]) [address] [place] [address] Eosinophils/100 WBC (Bld) 0.0 % Normal [facility] Comment on above: Performed By: #### B MP, CBCA #### [facility] ([id number]) [address] [address] [place] [address] Erythrocyte distribution width (RBC) [Ratio] 14.1 % Normal 11.5-15.0 [facility] Comment on above: Performed By: #### B MP, CBCA #### [facility] ([id number]) [address], [address] [place] [address] Hematocrit (Bld) [Volume fraction] 38.7 % Normal 35-47 [facility] Comment on above: Performed By: #### B ZAIN, CBCA #### [facility] ([id number]) [address] [facility] [address] [place] [address] Hemoglobin (Bld) [Mass/Vol] 13.0 g/dL Normal 11.7-15.5 [facility] Comment on above: Performed By: #### B MP, CBCA #### [facility] ([id number]) [address] [address] Lymphocytes (Bld) [#/Vol] 0.8 10*3/uL Low 1.0-3.5 [facility] Comment on above: Performed By: #### B ZAIN, CBCA #### [facility] ([id number]) [address] [address] Lymphocytes/100 WBC (Bld) 5.9 % Normal [facility] Comment on above: Performed By: #### B ZAIN, CBCA #### [facility] ([id number]) [address] [address] [place] [address] MCH (RBC) [Entitic mass] 29.7 pg Normal 27-34 [facility] Comment on above: Performed By: #### B ZAIN, CBCA #### [facility] ([id number]) [address] [address] [place] [address] MCHC (RBC) [Mass/Vol] 33.6 g/dL Normal 32-36 [facility] Comment on above: Performed By: #### B MP, CBCA #### [facility] ([id number]) [address] [address] [place] [address] MCV (RBC) [Entitic vol] 88 fL Normal 80-100 [facility] Comment on above: Performed By: #### B ZAIN, CBCA #### [facility] ([id number]) [address], [address] [place] [address] Monocytes (Bld) [#/Vol] 0.4 10*3/uL Normal 0-0.9 [facility] Comment on above: Performed By: #### B MP, CBCA #### [facility] ([id number]) [address] [place] [address] Monocytes/100 WBC (Bld) 3.3 % Normal [facility] Comment on above: Performed By: #### B MP, CBCA #### [facility] ([id number]) [address] [place] [address] Neutrophils/100 WBC (Bld) 90.7 % Normal [facility] Comment on above: Performed By: #### B MP, CBCA #### [facility] ([id number]) [address], [address] [place] [address] Platelet mean volume (Bld) [Entitic vol] 6.4 fL Low 7-12 [facility] Comment on above: Performed By: #### B MP, CBCA #### [facility] ([id number]) [address], [address] [place] [address] Platelets (Bld) [#/Vol] 349 10*3/uL Normal 150-450 [facility] Comment on above: Performed By: #### B MP, CBCA #### [facility] ([id number]) [address], [address] [place] [address] RBC COUNT 4.37 X10E12/L Normal 3.80-5.20 [facility] Comment on above: Performed By: #### B MP, CBCA #### [facility] ([id number]) [address], [address] [place] [address] WBC (Bld) [#/Vol] 13.8 10*3/uL High 4.0-11.0 [facility] Comment on above: Performed By: #### B MP, CBCA #### [facility] ([id number]) [address] [facility], [address] [place] [address] HCG ( test) Ql (U)o n 07-06-2023 Beta HCG ( test) Ql (U) Negative Normal NEG [facility] Comment on above: Performed By: #### 2 106-3 #### [facility] ([id number]) [address] [place] [address] Surgical Pathologyon 024 Surgical Pathology Normal [facility] Comment on above: Result Comment: [facility] [address] [place] [address] Surgical Pathology Consultation Patient Name:GISSEL DEL ROSARIO:1985 (Age: 38)Gender:FTaken:07/06/2023eported:07/10/2023hysician(s):Luís Andres M.D. ([phone])Copy To: Rec. #:[id number]: #[id number] Final Pathologic Diagnosis Bilateral fallopian tubes and [...] Out gp/07/10/2023Wagner Duncan MD Interpretation performed at [facility], [address] [place] [address], License number: [id number]. Clinical History Pelvic pain. Gross Description Received [...] each K 1 lymph node, serially sectioned (11,ss,L35-2164, m2) . /07/07/2023O Microscopic Findings Microscopic examination performed. Specimen(s) Received Bilateral tubes and ovaries and abdominal wall mass Fee Codes(s): 1; [address] CBC AND AUTO DIFFon 06-26-19 ABSOLUTE BASOPHIL 0.1 X10E9/L Normal 0.0-0.2 [facility] Comment on above: Performed By: #### C BCA #### [facility] ([id number]) [address] [facility] [place] [address] ABSOLUTE NEUTROPHIL 6.4 X10E9/L Normal 1.5-6.6 [facility] Comment on above: Performed By: #### C BCA #### [facility] ([id number]) [address] [facility] [place] [address] Basophils/100 WBC (Bld) 0.6 % Normal [facility] Comment on above: Performed By: #### C BCA #### [facility] ([id number]) [address] [place] [address] Eosinophils (Bld) [#/Vol] 0.1 10*3/uL Normal 0.0-0.4 [facility] Comment on above: Performed By: #### C BCA #### [facility] ([id number]) [address] [place] [address] Eosinophils/100 WBC (Bld) 0.7 % Normal [facility] Comment on above: Performed By: #### C BCA #### [facility] ([id number]) [address] [place] [address] Erythrocyte distribution width (RBC) [Ratio] 14.6 % Normal 11.5-15.0 [facility] Comment on above: Performed By: #### C BCA #### [facility] ([id number]) [address] [place] [address] Hematocrit (Bld) [Volume fraction] 42.5 % Normal 35-47 [facility] Comment on above: Performed By: #### C BCA #### [facility] ([id number]) [address] [address] [place] [address] Hemoglobin (Bld) [Mass/Vol] 14.2 g/dL Normal 11.7-15.5 [facility] Comment on above: Performed By: #### C BCA #### [facility] ([id number]) [address] [address] [place] [address] Lymphocytes (Bld) [#/Vol] 3.7 10*3/uL High 1.0-3.5 [facility] Comment on above: Performed By: #### C BCA #### [facility] ([id number]) [address] [place] [address] Lymphocytes/100 WBC (Bld) 33.4 % Normal [facility] Comment on above: Performed By: #### C BCA #### [facility] ([id number]) [address] [place] [address] MCH (RBC) [Entitic mass] 29.3 pg Normal 27-34 [facility] Comment on above: Performed By: #### C BCA #### [facility] ([id number]) [address] [place] [address] MCHC (RBC) [Mass/Vol] 33.4 g/dL Normal 32-36 [facility] Comment on above: Performed By: #### C BCA #### [facility] ([id number]) [address] [address] [place] [address] MCV (RBC) [Entitic vol] 88 fL Normal 80-100 [facility] Comment on above: Performed By: #### C BCA #### [facility] ([id number]) [address] [address] [place] [address] Monocytes (Bld) [#/Vol] 0.7 10*3/uL Normal 0-0.9 [facility] Comment on above: Performed By: #### C BCA #### [facility] ([id number]) [address] [place] [address] Monocytes/100 WBC (Bld) 6.5 % Normal [facility] Comment on above: Performed By: #### C BCA #### [facility] ([id number]) [address] [place] [address] Neutrophils/100 WBC (Bld) 58.8 % Normal [facility] Comment on above: Performed By: #### C BCA #### [facility] ([id number]) [address] [place] [address] Platelet mean volume (Bld) [Entitic vol] 6.6 fL Low 7-12 [facility] Comment on above: Performed By: #### C BCA #### [facility] ([id number]) [address] [place] [address] Platelets (Bld) [#/Vol] 367 10*3/uL Normal 150-450 [facility] Comment on above: Performed By: #### C BCA #### [facility] ([id number]) [address] [place] [address] RBC COUNT 4.84 X10E12/L Normal 3.80-5.20 [facility] Comment on above: Performed By: #### C BCA #### [facility] ([id number]) [address] [place] [address] WBC (Bld) [#/Vol] 11.0 10*3/uL Normal 4.0-11.0 [facility] Comment on above: Performed By: #### C BCA #### [facility] ([id number]) [address] [place] [address] CT ABD/PELVIS WO CONon 08-05 CT ABD/PELVIS WO CON EXAMINATION: CT ABD/PELVIS WO CON, 08/05/2022 3:43 PM EDT HISTORY: Renal colic COMPARISON: 03/07/2019 TECHNIQUE: CT scan of the abdomen and pelvis was performed without IV contrast. CT dose reduction technique was used, including Automated Exposure Control. ABDOMEN/PELVIS FINDINGS: Lower Chest: Unremarkable. Liver: Normal enhancement and contour. Biliary/Gallbladder : Unremarkable. Pancreas: Unremarkable. Spleen: Unremarkable. Adrenal Glands: Unremarkable. Kidneys: There are a few small nonobstructive calculi present in the kidneys bilaterally. No ureteral calculus identified. Gastrointestinal/Pe ritoneum: No acute abnormality. The appendix is unremarkable. [...] JAYDEN MORGAN Date: 2022-08-05 16:55 Normal [facility] QUANTIFERON TB GOLD PLUSon 0 06-18-2022 QuantiFERON Criteria Comment Normal [facility] Comment on above: Result Comment: Gagandeep [...] test. Performed By: #### Q NTTB #### [facility] [address] [place] [address] Dr. Yovanny Alcantara QuantiFERON Incubation Incubation performed. Normal [facility] Comment on above: Performed By: #### Q NTTB #### [facility] [address] [place] [address] Dr. Yovanny Alcantara QuantiFERON Mitogen Value >10.00 Normal [facility] Comment on above: Performed By: #### Q NTTB #### [facility] [address] [place] [address] Dr. Yovanny Alcantara QuantiFERON Nil Value 0.03 IU/mL Normal [facility] Comment on above: Performed By: #### Q NTTB #### [facility] [address] [place] [address] Dr. Yovanny Alcantara QuantiFERON TB1 Ag Value 0.05 IU/mL Normal [facility] Comment on above: Performed By: #### Q NTTB #### [facility] [address] [place] [address] Dr. Yovanny Alcantara QuantiFERON TB2 Ag Value 0.06 IU/mL Normal [facility] Comment on above: Performed By: #### Q NTTB #### [facility] [address] [place] [address] Dr. Yovanny Alcantara QuantiFERON-TB Gold Plus Negative Normal Negative [facility] Comment on above: Result Comment: No r esponse to M tuberculosis antigens detected. Infection with M tuberculosis is unlikely, but high risk individuals should be considered for additional testing (ATS/IDSA/CDC Clinical Practice Guidelines, 2017). The reference range is an Antigen minus Nil result of <0.35 IU/mL. Chemiluminescence immunoassay methodology Performed By: #### Q NTTB #### [facility] [address] [place] [address] Dr. Yovanny Alcantara HEPATITIS B SURFACE ANTIBODY , QUANTon 06-17-2022 Hepatitis B Surf AB Quant 3.5 mIU/mL Critically low Immunity>9.9 [facility] Comment on above: Result Comment: Stat us of Immunity Anti-HBs Level Inconsistent with Immunity 0.0 - 9.9 Consistent with Immunity >9.9 Performed By: #### H EPBSRF ####[facility] [address] [place], [place] [address]Dr. Yovanny Alcantara MMR IMMUNITYon 06-17-2022 Mumps Abs, IgG 17.4 AU/mL Normal Immune >10.9 [facility] Comment on above: Result Comment: Nega tive <9.0 Equivocal 9.0 - 10.9 Positive >10.9 A positive result generally indicates past exposure to Mumps virus or previous vaccination. Performed By: #### M MRIMMU #### [facility] [id number] Yovanny Alcantara Rubella Antibodies, IgG 1.68 index Normal Immune >0.99 [facility] Comment on above: Result Comment: Non- immune <0.90 Equivocal 0.90 - 0.99 Immune >0.99 Performed By: #### M MRIMMU #### [facility] [address] [place] [address] Yovanny Alcantara Rubeola Ab, IgG 108.0 AU/mL Normal Immune >16.4 [facility] Comment on above: Result Comment: Nega tive <13.5 Equivocal 13.5 - 16.4 Positive >16.4 Presence of antibodies to Rubeola is presumptive evidence of immunity except when acute infection is suspected. Performed By: #### M MRIMMU #### [facility] [address] [place], [place] [address] Dr. Yovanny Alcantara VARICELLA IGG ABon 3 Varicella Zoster IgG 947 index Normal Immune >165 [facility] Comment on above: Result Comment: Nega tive <135 Equivocal 135 - 165 Positive >165 A positive result generally indicates exposure to the pathogen or administration of specific immunoglobulins, but it is not indication of active infection or stage of disease. Performed By: #### V ARCEL ####[facility] [address] [place], [place] [address]ZgDr. Yovanny Alcantara Consent Formson 05-01-2022 Consent Forms [id number]#1.00OTGTIFF [facility] US CESIA DOP LEG RTon 12-31-19 [...] by: FRANTZ COVARRUBIAS Date: 2021-12-30 10:39 Normal [facility] CBC AUTO DIFFon 12-29-2021 BASO # 0.1 103/ul Normal 0.0-0.1 [facility] Comment on above: Performed By: #### C BC #### [facility] [address] [address] [address] Yovanny Alcantara Basophils/100 WBC (Bld) 0.7 % Normal 0.2-2.0 [facility] Comment on above: Performed By: #### C BC #### [facility] [address] [place] [address] Dr. Yovanny Alcantara EO # 0.2 103/ul Normal 0.0-0.7 [facility] Comment on above: Performed By: #### C BC #### [facility] [address] [place] [address] Dr. Yovanny Alcantara Eosinophils/100 WBC (Bld) 1.3 % Normal 0.9-7.0 [facility] Comment on above: Performed By: #### C BC #### [facility] [address] [place] [address] Dr. Yovanny Alcantara Erythrocyte distribution width (RBC) [Ratio] 13.9 % Normal 11.0-15.0 [facility] Comment on above: Performed By: #### C BC #### [facility] [address] [place] [address] Dr. Yovanny Alcantara Hematocrit (Bld) [Volume fraction] 43.7 % Normal 36.0-48.0 [facility] Comment on above: Performed By: #### C BC #### [facility] [address] [place] [address] Dr. Yovanny Alcantara Hemoglobin (Bld) [Mass/Vol] 13.8 g/dL Normal 12.0-16.0 [facility] Comment on above: Performed By: #### C BC #### [facility] [address] [place] [address] Dr. Yovanny Alcantara IG # 0.11 10e3/ul Critically high 0.00-0.03 [facility] Comment on above: Performed By: #### C BC #### [facility] [address] [place] [address] Dr. Yovanny Alcantara IG % 0.8 % Critically high 0.0-0.5 [facility] Comment on above: Performed By: #### C BC #### [facility] [address] [place] [address] Dr. Yovanny Alcantara LYMPH # 3.7 103/ul Normal 1.2-3.8 [facility] Comment on above: Performed By: #### C BC #### [facility] [address] [place] [address] Dr. Yovanny Alcantara Lymphocytes/100 WBC (Bld) 27.0 % Normal 20.5-60.0 [facility] Comment on above: Performed By: #### C BC #### [facility] [address] [place] [address] Dr. Yovanny Alcantara MANUAL DIFF REQ NO Normal [facility] Comment on above: Performed By: #### C BC #### [facility] [address] [place] [address] Dr. Yovanny Alcantara MCH (RBC) [Entitic mass] 26.7 pg Normal 26.7-34.0 [facility] Comment on above: Performed By: #### C BC #### [facility] [address] [place] [address] Dr. Yovanny Alcantara MCHC (RBC) [Mass/Vol] 31.6 g/dL Normal 29.9-35.2 [facility] Comment on above: Performed By: #### C BC #### [facility] [address] [place] [address] Dr. Yovanny Alcantara MCV (RBC) [Entitic vol] 84.5 fL Normal 81.0-99.0 [facility] Comment on above: Performed By: #### C BC #### [facility] [address] [place] [address] Dr. Yovanny Alcantara MONO # 0.9 103/ul Critically high 0.3-0.8 [facility] Comment on above: Performed By: #### C BC #### [facility] [address] [place] [address] Dr. Yovanny Alcantara Monocytes/100 WBC (Bld) 6.5 % Normal 1.7-12.0 [facility] Comment on above: Performed By: #### C BC #### [facility] [address] [address] [address] Yovanny Alcantara NEUT # 8.8 103/ul Critically high 1.4-6.5 [facility] Comment on above: Performed By: #### C BC #### [facility] [address] [address] [address] Yovanny Alcantara Neutrophils/100 WBC (Bld) 63.7 % Normal 43.0-75.0 [facility] Comment on above: Performed By: #### C BC #### [facility] [address] [address] [address] Yovanny Alcantara Platelet mean volume (Bld) [Entitic vol] 8.3 fL Critically low 9.5-13.5 [facility] Comment on above: Performed By: #### C BC #### [facility] [address] [address] [address] Yovanny Alcantara PLT 364 103/ul Normal 150-450 [facility] Comment on above: Performed By: #### C BC #### [facility] [address] [address] [address] Yovanny Alcantara RBC 5.17 106/ul Normal 4.20-5.40 [facility] Comment on above: Performed By: #### C BC #### [facility] [address] [address] [address] Yovanny Alcantara WBC 13.8 103/ul Critically high 4.0-11.0 [facility] Comment on above: Performed By: #### C BC #### [facility] [address] [place] [address] Dr. Yovanny Alcantara CTA CHEST WO W CONon 12-29-2 022 CTA CHEST WO W CON EXAM: [...] AMINA WU Date: 2021-12-29 01:20 Normal [facility] D-DIMERon 12-29-2021 D-DIMER 0.68 mg/L FEU Critically high <=0.59 [facility] Comment on above: Performed By: #### P TT, PT, DDIM ####[facility] [address] [id number]. Yovanny Alcantara D-DIMER COMMENTS SEE BELOW Normal [facility] Comment on above: Result Comment: Incr eases [...] Performed By: #### P TT, PT, DDIM ####[facility] [address] [place], [place] [address]LxDr. Yovanny Alcantara ER URINE PROFILEon 2 Bilirubin Ql (U) Negative Normal NEGATIVE [facility] Comment on above: Performed By: #### E RUR #### [facility] [address] [place], [place] [address] Dr. Yovanny Alcantara Clarity (U) CLEAR Normal CLEAR [facility] Comment on above: Performed By: #### E RUR #### [facility] [address] [place] [address] Dr. Yovanny Alcantara Color (U) YELLOW Normal YELLOW [facility] Comment on above: Performed By: #### E RUR #### [facility] [address] [place] [address] Dr. Yovanny LONG A micrscopic examination will be performed if indicated. Normal [facility] Comment on above: Performed By: #### E RUR #### [facility] [address] [place] [address] Dr. Yovanny Alcantara Glucose Ql (U) Negative Normal NEGATIVE [facility] Comment on above: Performed By: #### E RUR #### [facility] [address] [place] [address] Dr. Yovanny Alcantara Hemoglobin Ql (U) Negative Normal NEGATIVE [facility] Comment on above: Performed By: #### E RUR #### [facility] [address] [place] [address] Dr. Yovanny Alcantara Ketones Ql (U) Negative Normal NEGATIVE [facility] Comment on above: Performed By: #### E RUR #### [facility] [address] [place] [address] Dr. Yovanny Alcantara LEUKOCYTES Negative Normal NEGATIVE [facility] Comment on above: Performed By: #### E RUR #### [facility] [address] [place] [address] Dr. Yovanny Alcantara Nitrite Ql (U) Negative Normal NEGATIVE [facility] Comment on above: Performed By: #### E RUR #### [facility] [address] [place] [address] Dr. Yovanny Alcantara pH (U) 6.5 [pH] Normal 5-9 [facility] Comment on above: Performed By: #### E RUR #### [facility] [address] [place] [address] Dr. Yovanny Alcantara SPEC GRAVITY 1.020 Normal 1.005-<=1.025 [facility] Comment on above: Performed By: #### E RUR #### [facility] [address] [address] [address] Yovanny Alcantara UA PROTEIN Negative Normal NEGATIVE/ TRACE [facility] Comment on above: Performed By: #### E RUR #### [facility] [address] [address] [address] Yovanny Alcantara UR MICRO IND NOT INDICATED Normal [facility] Comment on above: Performed By: #### E RUR #### [facility] [address] [address] [address] Yovanny Alcantara Urobilinogen Qn (U) 0.2 {Eunice'U}/dL Normal 0.2 - 1. 0 [facility] Comment on above: Performed By: #### E RUR #### [facility] [address] [place] [address] Dr. Yovanny Alcantara PROTIMEon 12-29-2021 INR Coag (PPP) [Relative time] 0.94 {INR} Normal [facility] Comment on above: Performed By: #### P TT, PT, DDIM ####[facility] [address] [address]Dr. Yovanny Alcantara INR GUIDELINES SEE BELOW Normal [facility] Comment on above: Result Comment: JENNIFER RED INR: 2.0 - 3.0 CONDITIONS NOT LISTED BELOW 2.5 - 3.5 FOR PROSTHETIC HEART VALVE REPLACEMENT 2.5 - 3.5 RECURRENT THROMBOSIS Performed By: #### P TT, PT, DDIM ####[facility] [address] [address]DrJessica Alcantara PT Coag (PPP) [Time] 10.2 s Normal 9.0-11.6 [facility] Comment on above: Performed By: #### P TT, PT, DDIM ####[facility] [address] [address]Dr. Yovanny Alcantara PTTon 12-29-2021 aPTT Coag (Bld) [Time] 28.2 s Normal 22.3-36.2 [facility] Comment on above: Performed By: #### P TT, PT, DDIM ####[facility] [address] [place], [place] [address]FyJessica Alcantara .QC Respiratory Panel 2.1 (B ioFire)on 11-19-2021 Internal Control-Resp Panel 2.1(BioFire) Pass [facility] Comment on above: Order Comment: Order ed by Discern. [[id number]] Performed By: #### [id number] #### [facility] (DEFAULT) [address] [place] [address] Consent Formson 11-08-2021 Consent Forms [id number] #1.00OTGTIFF [facility] .QC Respiratory Panel 2.1 (B ioFire)on 11-02-2021 Internal Control[facility]Resp [facility] Comment on above: Order Comment: Order ed by Discern. [[id number]] Performed By: #### [id number] #### [facility] (DEFAULT) [address] [place] [address] XR LSPINE 2_3 VIEWSon 2021 XR LSPINE [...] by: ASHLEY CARRANZA Date: 2021-09-28 07:54 Normal [facility] US PELVIS AND TRANSVAGon US PELVIS [...] authenticated by: BRIAN SINGER Date: 2021-08-20 09:02 [facility] Consent Formson 05-16-2021 Consent Forms [id number] DE#1.00OTGTIFF [facility] .QC Respiratory Panel 2.1 (B ioFire)on 05-13-2021 Internal Control-Resp Panel 2.1(BioFire) [facility] Comment on above: Order Comment: Order ed by Mirian. [[id number]] Performed By: #### [id number] #### [facility] (DEFAULT) [address] [place] [address] Vital Signs Date Time Vital Sign Value Performing Clinician Facility 06-10-2024 11:130500 Body height 157.5 cm Joseph Sotelo MD Work Phone: [facility] 06-10-2024 11:13-0500 Body mass index (BMI) [Ratio] 28.53 kg/m2 Joseph Sotelo MD Work Phone: [facility] 06-10-2024 11:13-050 Body temperature 97.3 [degF] Joseph Sotelo MD Work Phone: [facility] 06-10-2024 11:13-0500 Body weight 70.76 kg Joseph Sotelo MD Work Phone: [facility] 06-10-2024 11:13-0500 Diastolic blood pressure 66 mm[Hg] Joseph Sotelo MD Work Phone: [facility] 06-10-2024 11:13-0500 Heart rate 90 /min Joseph Sotelo MD Work Phone: [facility] 06-10-2024 11:13-0500 Respiratory rate 20 /min Joseph Sotelo MD Work Phone: [facility] 06-10-2024 11:13-0500 SaO2% (BldA) [Mass fraction] 99 % Joseph Sotelo MD Work Phone: [facility] 06-10-2024 11:13-0500 Systolic blood pressure 100 mm[Hg] Joseph Sotelo MD Work Phone: [facility] 06-02-2024 08:16-0500 Body mass index (BMI) [Ratio] 28.5 kg/m2 Compa Nicolas DO Work Phone: [facility] 06-02-2024 08:16-0500 Body weight 70.67 kg Compa Nicolas DO Work Phone: [facility] 06-02-2024 08:16-0500 Diastolic blood pressure 72 mm[Hg] Compa Nicolas DO Work Phone: [facility] 06-02-2024 08:16-0500 Systolic blood pressure 106 mm[Hg] Compa Nicolas DO Work Phone: [facility] 05-31-2024 13:20-0500 Body height 157.5 cm Joseph Sotelo MD Work Phone: [facility] 05-31-2024 13:20-0500 Body mass index (BMI) [Ratio] 28.35 kg/m2 Joseph Sotelo MD Work Phone: [facility] 05-31-2024 13:20-0500 Body temperature 97.5 [degF] Joseph Sotelo MD Work Phone: [facility] 05-31-2024 13:20-0500 Body weight 70.31 kg Joseph Sotelo MD Work Phone: [facility] 01-28-2025 13:20-0500 Diastolic blood pressure 62 mm[Hg] Joseph Sotelo MD Work Phone: [facility] 05-31-2024 13:20-0500 Heart rate 106 /min Joseph Sotelo MD Work Phone: [facility] 05-31-2024 13:20-0500 Respiratory rate 22 /min Joseph Sotelo MD Work Phone: [facility] 05-31-2024 13:20-0500 SaO2% (BldA) [Mass fraction] 97 % Joseph Sotelo MD Work Phone: [facility] 05-31-2024 13:20-0500 Systolic blood pressure 114 mm[Hg] Joseph Sotelo MD Work Phone: [facility] 12-23-2023 14:16-0400 Blood Pressure Location Bryant IGLESIAS [facility] 12-23-2023 14:16-0400 Diastolic blood pressure 104 mm[Hg] Bryant IGLESIAS [facility] 12-23-2023 14:16-0400 Heart rate 84 /min Bryant IGLESIAS [facility] 12-23-2023 14:16-0400 Respiratory rate 16 /min Bryant IGLESIAS [facility] 12-23-2023 14:16-0400 Systolic blood pressure 144 mm[Hg] Bryant IGLESIAS [facility] 06-11-2023 15:12-0500 Body height 157.5 cm Joseph Sotelo MD Work Phone: [facility] 06-11-2023 15:12-0500 Body mass index (BMI) [Ratio] 28.53 kg/m2 Joseph Sotelo MD Work Phone: [facility] 06-11-2023 15:12-0500 Body temperature 97.81 [degF] Joseph Sotelo MD Work Phone: [facility] 06-11-2023 15:12-0500 Body weight 70.76 kg Joseph Sotelo MD Work Phone: [facility] 06-11-2023 15:12-0500 Diastolic blood pressure 60 mm[Hg] Joseph Sotelo MD Work Phone: [facility] 06-11-2023 15:12-0500 Heart rate 101 /min Joseph Sotelo MD Work Phone: [facility] 06-11-2023 15:12-0500 SaO2% (BldA) [Mass fraction] 99 % Joseph Sotelo MD Work Phone: [facility] 06-11-2023 15:12-0500 Systolic blood pressure 100 mm[Hg] Joseph Sotelo MD Work Phone: [facility] 03-24-2023 10:40-0500 Body height 154.1 cm Vu Juarez MD MPH Work Phone: [facility] 03-24-2023 10:40-0500 Body mass index (BMI) [Ratio] 31.92 kg/m2 Vu Juarez MD MPH Work Phone: [facility] 03-24-2023 10:40-0500 Body temperature 97.3 [degF] Vu Juarez MD MPH Work Phone: [facility] 03-24-2023 10:40-0500 Body weight 75.8 kg Vu Juarez MD MPH Work Phone: [facility] 03-24-2023 10:40-0500 Diastolic blood pressure 107 mm[Hg] Vu Juarez MD MPH Work Phone: [facility] 03-24-2023 10:40-0500 Heart rate 85 /min Vu Juarez MD MPH Work Phone: [facility] 03-24-2023 10:40-0500 Respiratory rate 16 /min Vu Juarez MD MPH Work Phone: [facility] 03-24-2023 10:40-0500 SaO2% (BldA) [Mass fraction] 98 % Vu Juarez MD MPH Work Phone: [facility] 03-24-2023 10:40-0500 Systolic blood pressure 148 mm[Hg] Vu Juarez MD MPH Work Phone: [facility] 09-05-2022 10:45-0400 Body height 155.57 cm Hilary Staton Other [facility] Other 09-05-2022 10:45-0400 Body mass index (BMI) [Ratio] 33.73 kg/m2 Hilary Staton Other [facility] Other 09-05-2022 10:45-0400 Body temperature 97.3 [degF] Hilary Staton Other [facility] Other 09-05-2022 10:45-0400 Body weight 81.65 kg Hilary Staton Other [facility] Other 09-05-2022 10:45-0400 Diastolic blood pressure 98 mm[Hg] Hilary Staton Other [facility] Other 09-05-2022 10:45-0400 Respiratory rate 18 /min Hilary Staton Other [facility] Other 09-05-2022 10:45-0400 SaO2% (BldA) [Mass fraction] 99 % Hilary Staton Other [facility] Other 09-05-2022 10:45-0400 Systolic blood pressure 139 mm[Hg] Hilary Staton Other [facility] [employer] Other 07-04-2014 13:22-0500 Blood Pressure Location Bryant IGLESIAS [place] 07-04-2014 13:22-0500 Body temperature 97.7 [degF] Bryant IGLESIAS [place] 07-04-2014 13:22-0500 Diastolic blood pressure 79 mm[Hg] Bryant IGLESIAS [place] 07-04-2014 13:22-0500 Heart rate 96 /min Bryant IGLESIAS [place] 07-04-2014 13:22-0500 Mean blood pressure 90 mm[Hg] Bryant IGLESIAS [place] 07-04-2014 13:22-0500 Respiratory rate 16 /min Bryant IGLESIAS [place] 07-04-2014 13:22-0500 SaO2% (BldA) [Mass fraction] 97 % Bryant IGLESIAS [place] 07-04-2014 13:22-0500 Systolic blood pressure 111 mm[Hg] Bryantdustin IGLESIAS [place] Encounters Encounter Date Encounter Type Care Provider Facility Start: 2024 End: 2024 External Result Encounter Joseph Sotelo MD Work Phone: [facility] External Department Unsolicited Start: 2024 End: 2024 External Result Encounter Joseph Sotelo MD Work Phone: [facility] External [facility] Unsolicited Start: 2024 End: 2024 ambulatory JOSEPH SOTELO [facility] Start: 06-10-2024 End: 06-10-2024 Bamboo flowsheet Joseph Sotelo MD Work Phone: [facility] Start: 06-10-2024 End: 06-10-2024 Bamboo flowsheet Joseph Sotelo MD Work Phone: [facility] Start: 06-10-2024 End: 06-10-2024 Office outpatient visit 25 minutes Joseph Sotelo MD Work Phone: [facility] Comment on above: Arthralgia, unspecif ied joint (Primary Dx); Chronic fatigue; Low serum cortisol level; Major depressive disorder, recurrent episode, mild (HCC) (CMS/HCC) Start: 06-10-2024 End: 06-10-2024 ambulatory JOSEPH SOTELO Not Available Start: 06-02-2024 End: 06-02-2024 Bamboo flowsheet Compa Nicolas DO Work Phone: [facility] Start: 06-02-2024 End: 06-02-2024 Bamboo flowsheet Compa Nicolas DO Work Phone: [facility] Start: 06-02-2024 End: 06-02-2024 Clinisync Result Encounter Compa Nicolas DO Work Phone: [facility] External Department Unsolicited Start: 06-02-2024 End: 06-02-2024 Office outpatient visit 15 minutes Compa Nicolas DO Work Phone: [facility] Comment on above: Hair loss; Hormone disorder; Mood changes Start: 06-02-2024 End: 06-02-2024 ambulatory COMPA NICOLAS Not Available Start: 05-31-2024 End: 05-31-2024 Bamboo flowsheet Joseph Sotelo MD Work Phone: [facility] Start: 05-31-2024 End: 05-31-2024 Bamboo flowsheet Joseph Sotelo MD Work Phone: [...] Department Unsolicited Start: 01-06-2024 End: 01-07-2024 ambulatory ABUNDIO WARREN [facility] Start: 12-24-2023 End: 12-24-2023 Clinisync Result Encounter Generic External Data Provider [facility] External Department Unsolicited Start: 12-24-2023 End: 12-24-2023 Clinisync Result Encounter Generic External Data Provider [facility] External Department Unsolicited Start: 12-23-2023 End: 12-24-2023 ambulatory Bryant IGLESIAS Facility:[id number] Start: 12-23-2023 End: 12-23-2023 Patient encounter procedure Bryant IGLESIAS [facility] Start: 12-22-2023 ambulatory Bryant IGLESIAS Facility :[facility] [place] Start: 12-21-2023 End: 12-24-2023 Clinisync Result Encounter Generic External Data Provider [facility] External Department Unsolicited Start: 12-21-2023 End: 12-24-2023 Clinisync Result Encounter Generic External Data Provider [facility] External Department Unsolicited Start: 09-25-2023 End: 09-25-2023 ambulatory [facility] Start: 08-05-2023 End: 08-05-2023 ambulatory [facility] Start: 07-30-2023 End: 07-30-2023 ambulatory [facility] Start: 07-22-2023 End: 07-22-2023 ambulatory [facility] Start: 07-07-2023 End: 07-07-2023 Evaluation and management of inpatient ELSI [facility] Start: 07-06-2023 End: 07-07-2023 Evaluation and management of inpatient [facility] Start: 06-29-2023 End: 06-29-2023 ambulatory [facility] Start: 06-26-2023 End: 06-26-[address] 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 Start: 06-11-2023 [facility] Joseph Sotelo MD Work Phone: [facility] Start: 06-11-2023 [facility] flowsheet Joseph Sotelo MD Work Phone: [facility] Start: 06-03-2023 End: 06-03-2023 ambulatory [facility] Start: 05-22-2023 ambulatory [facility] Start: 04-08-2023 End: 04-08-2023 Office outpatient new 45 minutes Jeremy Jang MD Work Phone: [facility] Comment on above: Endometrioma Start: 03-24-2023 End: 03-24-2023 ambulatory VU JUAREZ [facility] Start: 03-24-2023 End: 03-24-2023 Office outpatient new 60 minutes Vu Juarez MD MPH Work Phone: [facility] Comment on above: Endometrioma (Primar y Dx) Start: 09-05-2022 End: 09-05-2022 ambulatory Hilary Staton Other [place] [employer] Other Start: 09-05-2022 Office outpatient ne w 20 minutes Hilary Staton [facility] Start: 08-05-2022 End: 08-06-2022 ambulatory SHAIKH Neema KRISHNA Facility:[facility] Start: 06-16-2022 End: 06-16-2022 ambulatory AYDIN CAMACHO Facility:[facility] Start: 04-23-2022 End: 04-24-2022 ambulatory Kristopher L Cesar Facility:[facility] Start: 12-30-2021 End: 12-31-[address] JOSEPH SOTELO Facility:[facility] Start: 12-28-2021 End: 12-29-[address] JOSEPH SOTELO Facility:[facility] Start: 11-19-2021 End: 11-20-2021 ambulatory JOSEPH SOTELO Facility:[facility] Start: 11-02-2021 End: 11-02-2021 ambulatory JOSEPH SOTELO Facility:[facility] Start: 09-27-2021 End: 09-28-[address] JOSEPH SOTELO Facility:[facility] Start: 08-20-2021 End: 08-21-[address] JOSEPH SOTELO Facility: Start: 05-14-2021 End: 05-14-2021 ambulatory JOSEPH SOTELO Facility:[facility] Procedures Date Procedure Procedure Detail Performing Clinician Start: 2024 C-reactive protein Joseph Sotelo MD Work Phone: Start: 06-02-2024 MLR HEMOGLOBIN A1C Generic External Data Provider Start: 03-05-2024 ALL BUN Generic External Data [...] Data Provider Start: 07-22-2023 Follow-up visit Follow-up COLIN CARROLL Start: 07-13-2014 Tonsillectomy Bryant IGLESIAS Colonoscopy Bryant IGLESIAS Comment on above: x2 Endometrial ablation Bryant IGLESIAS Esophagogastroduodenoscopy P soledad IGLESIAS Hysterectomy Bryant IGLESIAS Ligation of fallopian tube P soledad IGLESIAS Comment on above: essure procedure Plan of Treatment Date Care Activity Detail Author Start: 2036 Zoster Vaccines (1 of 2) Zoste r Vaccines (1 of 2) [facility] Start: 07-28-2027 DTaP/Tdap/Td Vaccine s (6 - Td or Tdap) DTaP/Tdap/Td Vaccines (6 - Td or Tdap) [facility] Start: 09-06-2024 End: 09-06-2024 Patient encounter procedure 09/06/2024 3:30 PM EDT Office Visit [facility] [address] [place] [id number] Joseph Sotelo MD [address] [place] [id number] [facility] Start: 07-07-2024 End: 07-07-2024 Patient encounter procedure 07/07/2024 1:15 PM EST Office Visit [facility] [address] [place] [phone] Joseph Sotelo MD [address] [place] [phone] [facility] Start: 07-04-2024 End: 07-04-2024 Patient encounter procedure 07/04/2024 3:20 PM EST Office Visit [facility] [address] [place] [phone] Compa Valenzuela DO [address] [place] [address] [facility] Start: 06-10-2024 End: 06-10-2025 ACTH ACTH Lab Routine Low serum cortisol level Expected: 06/10/2024 (Approximate), Expires: 06/10/2025 [facility] Comment on above: Expected: 06/10/2024 (Approximate), Expires: 06/10/2025 Start: 06-10-2024 End: 06-10-2025 Aldosterone Aldosterone Lab Routine Low serum cortisol level Expected: 06/10/2024 (Approximate), Expires: 06/10/2025 [facility] Comment on above: Expected: 06/10/2024 (Approximate), Expires: 06/10/2025 Start: 06-10-2024 End: 06-10-2025 C reactive protein [Mass/volume] in Serum or Plasma C-reactive protein Lab Routine Arthralgia, unspecified joint Expected: 06/10/2024 (Approximate), Expires: 06/10/2025 [facility] Comment on above: Expected: 06/10/2024 (Approximate), Expires: 06/10/2025 Start: 06-10-2024 End: 06-10-2025 Cortisol Cortisol Lab Routine Chronic fatigue Low serum cortisol level Expected: 06/10/2024 (Approximate), Expires: 06/10/2025 [facility] Comment on above: Expected: 06/10/2024 (Approximate), Expires: 06/10/2025 Start: 06-10-2024 End: 06-10-2025 Erythrocyte sedimentation rate Sedimentation rate, automated Lab Routine Arthralgia, unspecified joint Expected: 06/10/2024 (Approximate), Expires: 06/10/2025 [facility] Work Phone: Comment on above: Expected: 06/10/2024 (Approximate), Expires: 06/10/2025 Start: 06-10-2024 End: 06-10-2025 Nuclear Ab [Titer] in Serum by Immunofluorescence JASON Lab Routine Arthralgia, unspecified joint Expected: 06/10/2024 (Approximate), Expires: 06/10/2025 [facility] Comment on above: Expected: 06/10/2024 (Approximate), Expires: 06/10/2025 Start: 06-10-2024 End: 06-10-2025 Rheumatoid factor [Units/volume] in Serum or Plasma Rheumatoid factor Lab Routine Arthralgia, unspecified joint Expected: 06/10/2024 (Approximate), Expires: 06/10/2025 [facility] Comment on above: Expected: 06/10/2024 (Approximate), Expires: 06/10/2025 Start: 06-10-2024 End: 06-10-2024 Patient encounter procedure 06/10/2024 11:15 AM EST [facility] [address] [place] [address] Joseph Sotelo MD [address] [place] [address] Arrived [facility] Comment on above: Arrived Start: 06-02-2024 End: 06-02-2025 C-peptide C-peptide Lab Routine Hair loss Hormone disorder Mood changes Expected: 06/02/2024 (Approximate), Expires: 06/02/2025 [facility] Comment on above: Expected: 06/02/2024 (Approximate), Expires: 06/02/2025 Start: 06-02-2024 End: 06-02-2025 Cortisol free Cortisol, free Lab Routine Hair loss Hormone disorder Mood changes Expected: 06/02/2024 (Approximate), Expires: 06/02/2025 [facility] Comment on above: Expected: 06/02/2024 (Approximate), Expires: 06/02/2025 Start: 06-02-2024 End: 06-02-2025 Glucose [Mass/volume] in Serum or Plasma Glucose, random Lab Routine Hair loss Hormone disorder Mood changes Expected: 06/02/2024 (Approximate), Expires: 06/02/2025 [facility] Comment on above: Expected: 06/02/2024 (Approximate), Expires: 06/02/2025 Start: 06-02-2024 End: 06-02-2025 Insulin, total Insulin, total Lab Routine Hair loss Hormone disorder Mood changes Expected: 06/02/2024 (Approximate), Expires: 06/02/2025 [facility] Comment on above: Expected: 06/02/2024 (Approximate), Expires: 06/02/2025 Start: 06-02-2024 End: 06-02-2025 Serotonin serum Serotonin serum Lab Routine Hair loss Hormone disorder Mood changes Expected: 06/02/2024 (Approximate), Expires: 06/02/2025 [facility] Comment on above: Expected: 06/02/2024 (Approximate), Expires: 06/02/2025 Start: 06-02-2024 End: 06-02-2025 Thyroglobulin Thyroglobulin Lab Routine Hair loss Hormone disorder Mood changes Expected: 06/02/2024 (Approximate), Expires: 06/02/2025 [facility] Comment on above: Expected: 06/02/2024 (Approximate), Expires: 06/02/2025 Start: 06-02-2024 End: 06-02-2025 Thyroglobulin Antibody Thyroglobulin Antibody Lab Routine Hair loss Hormone disorder Mood changes Expected: 06/02/2024 (Approximate), Expires: 06/02/2025 [facility] Comment on above: Expected: 06/02/2024 (Approximate), Expires: 06/02/2025 Start: 06-02-2024 End: 06-02-2025 Thyrotropin [Units/volume] in Serum or Plasma [facility] Comment on above: Ordered: 06/02/2024 Expected: 06/02/2024 (Approximate), Expires: 06/02/2025 Start: 06-02-2024 End: 06-02-2024 Patient encounter procedure 06/02/2024 8:20 AM EST Office Visit [facility] [address] [place] [phone] Compa Valenzuela, [address] [place] [address] Arrived [facility] Comment on above: Arrived Start: 05-31-2024 End: 05-31-2024 Patient encounter procedure 05/31/2024 1:15 PM EST Office Visit [facility] [address] [place] [address] Joseph Sotelo MD [address] [place] [phone] Arrived [facility] Comment on above: Arrived Start: 01-03-2024 Influenza vaccination Influenza Vacc ine (#1) [facility] Start: 08-10-2023 End: 08-10-2023 Patient encounter procedure 08/10/2023 2:45 PM EDT Office Visit [facility] [address] [place] [phone] Joseph Sotelo MD [address] [place] [phone] [facility] Start: 06-11-2023 End: 06-11-2023 Patient encounter procedure 06/11/2023 3:15 PM EST Office Visit [facility] [address] [place] [phone] Joseph Sotelo MD [address] [place] [phone] [facility] Comment on above: Arrived Start: 01-02-2023 Influenza vaccination Influenza Vacc ine (#1) [facility] Start: 04-26-2021 COVID-19 Vaccine (4 - Moderna series) COVID-19 Vaccine (4 - Moderna series) [facility] Start: 12-24-2017 Varicella vaccination Varicell a Vaccines (2 of 2 - 13+ 2-dose series) [facility] Start: 2007 Screening for malign ant neoplasm of cervix [facility] Start: 2004 Diabetes mellitus screening Diabetes Screening [facility] Start: 2004 Hepatitis C screening Hepatitis C [facility] Start: 1986 HIV screening HIV Screening [facility] Start: 1986 Lipid panel Lipid Panel [facility] Start: 1986 Yearly Adult Physical Yearly Adult P [facility] DHEA-sulfate DHEA-sulfate Lab Routine Hair loss Hormone disorder Mood changes Ordered: 06/02/2024 [facility] Comment on above: Ordered: 06/02/2024 Estradiol Estradiol Lab Ro utine Hair loss Hormone disorder Mood changes Ordered: 06/02/2024 [facility] Work Phone: Comment on above: Ordered: 06/02/2024 Estrone Estrone Lab Rout ine Hair loss Hormone disorder Mood changes Ordered: 06/02/2024 [facility] Comment on above: Ordered: 06/02/2024 Ferritin [Mass/volum e] in Serum or Plasma Ferritin Lab Routine Hair loss Hormone disorder Mood changes Ordered: 06/02/2024 [facility] Comment on above: Ordered: 06/02/2024 Hemoglobin A1c/Hemoglobin.total in Blood Hemoglobin A1c Lab Routine Hair loss Hormone disorder Mood changes Ordered: 06/02/2024 [facility] Comment on above: Ordered: 06/02/2024 Progesterone Progesterone Lab Routine Hair loss Hormone disorder Mood changes Ordered: 06/02/2024 [facility] Comment on above: Ordered: 06/02/2024 Sex hormone binding globulin Sex hormone binding globulin Lab Routine Hair loss Hormone disorder Mood changes Ordered: 06/02/2024 [facility] Comment on above: Ordered: 06/02/2024 T3, reverse T3, reverse Lab Routine Hair loss Hormone disorder Mood changes Ordered: 06/02/2024 [facility] Comment on above: Ordered: 06/02/2024 TESTOSTERONE, FREE TESTOSTERONE, FREE Lab Routine Hair loss Hormone disorder Mood changes Ordered: 06/02/2024 [facility] Comment on above: Ordered: 06/02/2024 Testosterone, free, total Testos terone, free, total Lab Routine Hair loss Hormone disorder Mood changes Ordered: 06/02/2024 [facility] Comment on above: Ordered: 06/02/2024 Thyroid peroxidase antibody Thyr oid peroxidase antibody Lab Routine Hair loss Hormone disorder Mood changes Ordered: 06/02/2024 [facility] Comment on above: Ordered: 06/02/2024 Thyroxine (T4) free [Mass/volume] in Serum or Plasma T4, free Lab Routine Hair loss Hormone disorder Mood changes Ordered: 06/02/2024 [facility] Comment on above: Ordered: 06/02/2024 Triiodothyronine (T3 ) Free [Mass/volume] in Serum or Plasma T3, free Lab Routine Hair loss Hormone disorder Mood changes Ordered: 06/02/2024 [facility] Comment on above: Ordered: 06/02/2024 Vitamin D 1,25 dihydroxy Vitamin D 1,25 dihydroxy Lab Routine Hair loss Hormone disorder Mood changes Ordered: 06/02/2024 [facility] Comment on above: Ordered: 06/02/2024 Immunizations Immunization Date Immunization Notes Care Provider [facility] 02-18-2021 influenza virus vaccine, unspecified formulation Vu Juarez MD MPH Work Phone: [facility] Work Phone: 11-26-2017 varicella virus vaccine Vu Juarez MD MPH Work Phone: [facility] Work Phone: 01-11-2014 influenza, seasonal, injectable, preservative free Hilary Staton Other [facility] Other Payers Date Payer Category Payer Blue [place] Blue Shield [id number] [id number] 2021 Unknown [id number] 2017 Blue Cross Blue Shield GTFAN [id number] 2014 Unknown [id number] 1986 Unknown [id number] 2.16.84 0.1.892263.3.579.2.593 1986 Unknown [id number] 2.16.84 0.1.040529.3.579.2.593 1986 Unknown [id number] 2.16.84 0.1.958850.3.579.2.593 1986 Unknown [id number] 2.16.84 0.1.112845.3.579.2.593 1986 Unknown [id number] 2.16.84 0.1.026850.3.579.2.593 1986 Unknown [id number] 2.16.8 40.1.018668.3.579.2.1245 1986 Unknown [id number] 2.16.84 0.1.282840.3.579.2.1286 1986 Unknown [id number] 2.16.84 0.1.350841.3.579.2.1286 1986 Unknown [id number] 2.16.8 40.1.244194.3.579.2.1286 1986 Unknown [id number] 2.16.8 40.1.633437.3.579.2.1286 1986 Unknown [id number] 2.16.8 40.1.695427.3.579.2.1286 1986 Unknown [id number] 2.16.8 40.1.370864.3.579.2.6 1986 Unknown [id number] 2.16.8 40.1.337692.3.579.2.1286 1986 Unknown [id number] 2.16.8 40.1.283701.3.579.2.128 1986 Unknown [id number] 2.16.8 40.1.313377.3.579.2.1286 1986 Unknown [id number] 2.16.8 40.1.371986.3.579.2.128 1986 Unknown [id number] 2.16.8 40.1.109735.3.579.2.727 1986 Unknown [id number] 2.16.8 40.1.104670.3.579.2.727 1986 Unknown [id number] 2.16.8 40.1.711683.3.579.2.727 1986 Unknown [id number] 2.16.8 40.1.576598.3.579.2.727 1986 Unknown [id number] 2.16.84 0.1.953501.3.579.2.1259 1986 Unknown [id number] 2.16.84 0.1.312469.3.579.2.9 1986 Unknown [id number] 2.16.84 0.1.106849.3.579.2.1259 1986 Unknown [id number] 2.16. 840.1.662319.3.579.2.1286 1986 Unknown [id number] 2.16.8 40.1.788334.3.579.2.1286 1986 Unknown [id number] 2.16.8 40.1.471574.3.579.2.1286 1986 Unknown [id number] 2.16.8 40.1.436820.3.579.2.1286 1986 Unknown [id number] 2.16.8 40.1.774349.3.579.2.6 1986 Unknown [id number] 2.16.8 40.1.077088.3.579.2.1286 1959 Self-pay 1959 Unknown [id number] Unknown [id number] 2.16.84 0.1.760907.3.579.2.593 Social History Date Type Detail Facility Unknown if ever smoked [facility] Other Start: 04-08-2023 End: 05-06-2023 [facility] At [facility] Work Phone: Start: 1986 Sex Assigned At Not on file [facility] Work Phone: Start: 03-14-2023 End: 04-08-2023 Exposure to SARS-CoV-2 (event) Not sure [facility] Start: 10-14-2022 End: 04-08-2023 Tobacco smoking status NHIS Never smoked tobacco [facility] Start: 10-14-2022 End: 04-08-2023 Tobacco use and exposure Smokeless tobacco non-user [facility] Work Phone: Start: 04-08-2023 Alcohol intake Ex-drinker (finding) [facility] Work Phone: Start: 04-08-2023 End: 05-06-2023 History of Social function [facility] Start: 05-19-2023 End: 06-10-2024 Alcohol intake Lifetime non-drinker (finding) [facility] Within the last year , have you been afraid of your partner or ex-partner? No [facility] Are you now , , , , never or living with a partner? [facility] How often to you hav e a drink containing alcohol? Monthly or less [facility] How many standard dr inks containing alcohol do you have on a [...] Only a little [facility] (I/We) worried [facility] (my/our) food would run out before (I/we) got money to buy more. Never true [facility] In the past 12 month s, has lack of transportation kept you from medical appointments or from getting medications? No [facility] Start: 10-14-2022 Alcohol Comment Alcohol: 1-2 drinks/monthly or less Caffeine: 1-2 cups/day coffee, tea [facility] Functional Status Date Assessment Result Facility 12-23-2023 Functional Status N/A [facility] Clinical Notes 09-28-2021 to 06-10-2024 Joseph Sotelo MD - 06/10/2024 12:23 PM Harrison Sotelo MD - 06/10/2024 12:22 PM Harrison Sotelo MD - 06/10/2024 12:22 PM Harrison Sotelo MD - 06/10/2024 12:22 PM EST Note Date & Type Note Facility 06-10-2024 History of Present illness Narrative Associated Problem(s): Major depressive disorder, recurrent episode, mild (HCC) (CMS/HCC) Serotonin level low and add prozac. Will start to wean off cymbalta and decrease to once a day. Associated Problem(s): Low serum cortisol level Labs abnormal and refer to endo. Associated Problem(s): Chronic fatigue Severe fatigue and no energy. Check labs. Refer to endo. Associated Problem(s): Arthralgia Check labs. Subjective Patient ID: Gissel Del Rosario is a 38 y.o. female who presents for Follow-up (Go over labs). C/o severe fatigue and no energy. Tired all the time and always needs a nap. Almost feels lethargic and need to sleep all day. Feels like needs a nap prior to driving home from work. Not exercising due to no energy. Continues to have pain and body aches in multiple joints. Continued nausea. Prior surgery to removed uterus and ovaries and developed menopausal symptoms. Seen by it program auditor and several labs ordered. Prescribed compounded vaginal cream and doesn't want oral hormone replacement due to history of blood clots. Labs showed low serotonin and low cortisol. Review of Systems Respiratory: Negative for cough, [...] Assessment/Plan Problem List Items Addressed This Visit Arthralgia - Primary Check labs. Relevant Orders Sedimentation rate, automated C-reactive protein JASON Rheumatoid factor Major depressive disorder, recurrent episode, mild (HCC) (CMS/HCC) Serotonin level low and add prozac. Will start to wean off cymbalta and decrease to once a day. Relevant Medications FLUoxetine (PROzac) 20 MG capsule DULoxetine (Cymbalta) [address] capsule Chronic fatigue Severe fatigue and no energy. Check labs. Refer to endo. Relevant Orders Cortisol Ambulatory referral to Endocrinology Low serum cortisol level Labs abnormal and refer to endo. Relevant Orders Cortisol ACTH Aldosterone Ambulatory referral to Endocrinology documented in this encounter [facility] 06-02-2024 History of Present illness Narrative Reason for Appointment: Patient ID: Gissel Del Rosario is a 38 y.o. female who presents for Menopausal Symptoms Patient presents today for Consult appointment. MEDICATIONS Current Outpatient Medications Medication Instructions acetaminophen (TYLENOL) 1,000 mg, Every 8 hours PRN iyofecncqx-shszqrigqzxtn-mrelmev e 50-325-40 MG tablet 1 tablet, Oral, 4 times daily PRN cholecalciferol (Vitamin D-3) 50 MCG (1999 UT) tablet 1 tablet, Daily DULoxetine (CYMBALTA) 60 mg, Oral, 2 times daily Effer-K 20 MEQ effervescent tablet HYDROcodone-acetaminophen (John Day) 5-325 MG tablet 1 tablet, Every 6 hours ibuprofen 800 mg, Every 8 hours PRN lisinopril 10 mg, Oral, Every morning metoprolol succinate XL (TOPROL-XL) 25 mg, Oral, Every morning mirabegron ER (MYRBETRIQ) 50 mg, Daily omeprazole (PRILOSEC) 40 mg, Oral, Daily ondansetron ODT (Zofran-ODT) 4 MG disintegrating tablet DISSOLVE 1 TABLET ON THE TONGUE EVERY 6 HOURS NEEDED FOR NAUSEA OR VOMITING OXcarbazepine (TRILEPTAL) 300 mg, Oral, 2 times daily Ozempic (0.25 or 0.5 MG/DOSE) 0.25 mg, Weekly Ozempic, 0.25 or 0.5 MG/DOSE, 2 MG/3ML solution pen-injector INJECT 0.5 MG UNDER THE SKIN ONCE WEEKLY polyethylene glycol (PEG) 3350 (MIRALAX) 17 g, Once predniSONE (DELTASONE) 50 mg, Oral, Daily promethazine (PHENERGAN) 50 mg, Oral, Every 6 hours PRN tamsulosin (Flomax) 0.4 MG 24 hr capsule topiramate 50 MG tablet 1 tablet, Oral, 2 times daily ALLERGIES Allergies Allergen Reactions Vesicare [Solifenacin] PROBLEMS Active Ambulatory Problems Diagnosis Date Noted Benign essential hypertension ([facility]) 10/10/2022 Dysfunctional uterine bleeding 10/10/2022 Arthralgia 04/08/2023 Chronic migraine without aura ([facility]) 04/08/2023 DDD (degenerative disc disease), lumbar 04/08/2023 Endometriosis 04/08/2023 Generalized anxiety disorder ([facility]) 04/08/2023 Gastroesophageal reflux disease 04/08/2023 Major depressive disorder, recurrent episode, mild ([facility]) ([facility]) 04/08/2023 Metabolic syndrome 04/08/2023 Morbid obesity ([facility]) 04/08/2023 Vitamin D insufficiency 04/08/2023 Sinus tachycardia 04/08/2023 Hypokalemia 04/08/2023 Personal history of venous thrombosis and embolism 03/24/2011 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 06/04/2023 Left lateral epicondylitis 05/31/2024 Resolved Ambulatory Problems Diagnosis Date Noted Asthma (CMS/HCC) 10/10/2022 Leukocytosis 10/10/2022 Mixed anxiety and depressive disorder 10/10/2022 Past Medical History: Diagnosis Date Arthralgia, unspecified joint At low risk for fall Bilateral pulmonary embolism (CMS/HCC) Bony sclerosis Chronic migraine without aura without status migrainosus, not intractable (CMS/HCC) Chronic sinusitis, unspecified location GILDARDO (generalized anxiety disorder) (CMS/HCC) GERD (gastroesophageal reflux disease) GERD without esophagitis History of abdominal supracervical subtotal hysterectomy 2014 Insomnia, persistent Left hip pain Left leg pain MDD (major depressive disorder), recurrent episode, mild (HCC) (CMS/HCC) Migraine headache (CMS/HCC) Obesity with body mass index (BMI) of 30.0 to 39.9 Renal calculi Right hip pain Rosacea Sacro-iliac pain Tonsillar hypertrophy Vitamin D deficiency HISTORY PAST MEDICAL HISTORY SOCIAL HISTORY Past Medical History: Diagnosis Date Arthralgia, unspecified joint At low risk for fall Benign essential hypertension (CMS/HCC) Bilateral pulmonary embolism (CMS/HCC) Bony sclerosis Chronic migraine without aura without status migrainosus, not intractable (CMS/HCC) Chronic sinusitis, unspecified location DDD (degenerative disc disease), lumbar Endometriosis GILDARDO (generalized anxiety disorder) (CMS/HCC) GERD (gastroesophageal reflux disease) GERD without esophagitis History of abdominal supracervical subtotal hysterectomy 2014 left ovary remains Insomnia, persistent Left hip pain Left leg pain MDD (major depressive disorder), recurrent episode, mild (HCC) (CMS/HCC) Metabolic syndrome Migraine headache (CMS/HCC) Obesity with body mass index (BMI) of 30.0 to 39.9 Renal calculi Right hip pain Rosacea Sacro-iliac pain Tonsillar hypertrophy Vitamin D deficiency Social History Tobacco Use Smoking status: Never Smokeless tobacco: Never Substance Use Topics Alcohol use: Never Comment: Alcohol: 1-2 drinks/monthly or less Caffeine: 1-2 cups/day coffee, tea Drug use: Never FAMILY HISTORY Family History Problem Relation Name Age of Onset Depression Mother Arthritis Mother Hypertension Mother Paget's disease of bone Mother Ulcers Mother Kidney disease Father Depression Father Asthma Father Arthritis Father Other (Fatty liver) Father Hypertension Father Irritable bowel syndrome Father Depression Brother Learning disabilities Brother ADD / ADHD Brother Asthma Brother Hypertension Maternal Grandmother Heart disease Maternal Grandmother Diabetes Maternal Grandmother Lung cancer Maternal Grandmother Hypertension Paternal Grandmother Depression Paternal Grandmother Arthritis Paternal Grandmother Heart disease Paternal Grandmother Diabetes Paternal Grandmother Stroke Paternal Grandmother Heart disease Paternal Grandfather blood clots Other (Other) Paternal Grandfather blood clots Melanoma Neg Hx SURGICAL HISTORY Past Surgical History: Procedure Laterality Date SECTION, CLASSIC 2012 COLONOSCOPY 2009 COLONOSCOPY 2013 EGD 2009 EGD 2013 ENDOMETRIAL ABLATION 2012 Novasure HYSTERECTOMY 04/16/2015 LITHOTRIPSY 2015 TONSILLECTOMY 2014 and adenoidectomy US GUIDED SOFT TISSUE BIOPSY 11/30/2023 US GUIDED SOFT TISSUE BIOPSY REVIEW OF SYSTEMS Review of Systems: Review of Systems Genitourinary: Positive for vaginal dryness. All other systems reviewed and are negative. OBJECTIVE Objective: Physical Exam Constitutional: Appearance: Normal appearance. She is well-developed. Cardiovascular: Rate and Rhythm: Normal rate and regular rhythm. Pulmonary: Effort: Pulmonary effort is normal. Breath sounds: Normal breath sounds. Abdominal: General: Bowel sounds are normal. There is no distension. Palpations: Abdomen is soft. Tenderness: There is no abdominal tenderness. There is no guarding or rebound. Musculoskeletal: General: No swelling. Normal range of motion. Right lower leg: No edema. Left lower leg: No edema. Neurological: Mental Status: She is alert and oriented to person, place, and time. Skin: General: Skin is warm and dry. Psychiatric: Mood and Affect: Mood normal. Behavior: Behavior normal. Vitals and nursing note reviewed. Exam conducted with a credit union field examiner present. Vitals: Estimated body mass index is 28.5 kg/m as calculated from the following: Height as of 05/31/24: 5' 2 . Weight as of this encounter: 155 lb 12.8 oz. BP: 106/72 No LMP recorded. Patient has had a hysterectomy. ASSESSMENT & PLAN ICD-10-CM 1. Hair loss L65.9 Estradiol Estrone Cortisol, free DHEA-sulfate Sex hormone binding globulin Insulin, total Serotonin serum TSH T4, free T3, reverse Progesterone Vitamin D 1,25 dihydroxy Ferritin T3, free Thyroglobulin Thyroglobulin Antibody Thyroid peroxidase antibody T4 TESTOSTERONE, FREE Testosterone, free, total Hemoglobin A1c Glucose, random C-peptide 2. Hormone disorder E34.9 Estradiol Estrone Cortisol, free DHEA-sulfate Sex hormone binding globulin Insulin, total Serotonin serum TSH T4, free T3, reverse Progesterone Vitamin D 1,25 dihydroxy Ferritin T3, free Thyroglobulin Thyroglobulin Antibody Thyroid peroxidase antibody T4 TESTOSTERONE, FREE Testosterone, free, total Hemoglobin A1c Glucose, random C-peptide 3. Mood changes R45.86 Estradiol Estrone Cortisol, free DHEA-sulfate Sex hormone binding globulin Insulin, total Serotonin serum TSH T4, free T3, reverse Progesterone Vitamin D 1,25 dihydroxy Ferritin T3, free Thyroglobulin Thyroglobulin Antibody Thyroid peroxidase antibody T4 TESTOSTERONE, FREE Testosterone, free, total Hemoglobin A1c Glucose, random C-peptide Patient presents today for mood changes, hair loss, brain fog, joint pain and decreased libido. Patient will obtain labs and Progesterone/Testosterone cream. Patient given [facility] and will return to office if she decides to have consult with [employer] Patient to return to office fir annual appointment. Nursing will send prescription to [facility] to at least start vaginal cream after having labs drawn. Documented by Vee Call LPN on behalf of: Compa Valenzuela DO documented in this encounter [facility] 05-31-2024 History of Present illness Narrative Associated Problem(s): Left lateral epicondylitis [...] MG tablet documented in this encounter [facility] 12-23-2023 Hospital Discharge instructions Patient Education 12/23/2023 14:47:11 Laser Therapy [...] Follow these instructions at home: Medicines Take wrwo-nii-jsdkrng and prescription medicines only as told by [...] prevent or treat constipation, such as: ?Take cevu-agv-cqauonk or prescription medicines. ?Eat foods that are [...] provider. Document Revised: 08/27/2022 Document Reviewed: 12/23/2021 [employer] Patient Education 2022 [employer]ve[employer]. 12/23/2023 14:47:10 Laser Therapy for Kidney Stones [...] including vitamins, herbs, eye drops, creams, and anus-qdz-vpfqyfv medicines. Any problems you or family members [...] provider tells you to take them. ?Taking uzmf-tah-tlehmfq medicines, vitamins, herbs, and supplements. Eating and [...] provider. Document Revised: 08/27/2022 Document Reviewed: 12/23/2021 [employer] Patient Education 2022 [employer]ve[employer]. Follow Up Care 12/22/2023 08:45:54 With:VANESSA LYLES, Bryant Carlos, URL Address: [facility] [address] , [place] [address]- [phone] When: Unknown Comments:saeid Em URS/laser litho/possible stent plaement [facility] 12-23-2023 Note Patient Education Nephrology Laser Therapy [...] these instructions at home: Medicines ? Take dole-vsw-ymqrulo and prescription medicines only as told by [...] or treat constipation, such as: ? Take kqdx-tzz-zjvjnri or prescription medicines. ? Eat foods that [...] provider. Document Revised: 08/27/2022 Document Reviewed: 12/23/2021 [employer] Patient Education ? 2022 [employer] Laser Therapy for Kidney Stones Laser [...] including vitamins, herbs, eye drops, creams, and afed-kki-pifnlza medicines. ? Any problems you or family [...] by a f (more content not included)... [facility] 06-11-2023 History of Present illness Narrative Associated Problem(s): Sinus tachycardia Symptoms stable with toprol and continue. 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 Associated Problem(s): Benign essential hypertension (CMS/HCC) BP remains low and stop zestoretic. Start lisinopril daily and monitor BP. Subjective Patient ID: Gissel Del Rosario is a 37 y.o. female who presents for Follow-up (1m). Follow up HTN, tachycardia, and abdominal mass. Patient continues to have abdominal pain. Seen by it program auditor and felt mass related to endometriosis in [...] scar Continued pain and follow up with it program auditor for surgery. documented in this encounter [facility] 04-08-2023 History of Present illness Narrative History [...] was negative but is to see a nightclub manager to further work this up as well. Jeremy Jang MD documented in this encounter [facility] Work Phone: 03-24-2023 History of Present illness Narrative History [...] hernia specialists. 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 [facility] Other 05-28-2022 NotePROCEDURE: XR PELVIS W_OBL MIN 3 VIEWS COMPARISON: HISTORY: Disorder of sacrum FINDINGS: BONES:No fracture, acute abnormality, or significant arthropathy. SOFT TISSUES:Negative. No visible soft tissue swelling. EFFUSION:None visible. OTHER: Negative. IMPRESSION: No acute abnormality Electronically authenticated by: ASHLEY CARRANZA Date: 2021-09-28 07:58[facility]05[facility] NotePROCEDURE: XR TIB_FIB LT 2V COMPARISON: 07/17/2020 HISTORY: Pain in left leg FINDINGS: BONES:No acute fracture or dislocation. Stable sclerosis along the distal tibia. Enthesopathic spurring plantar calcaneus SOFT TISSUES:Negative. No visible soft tissue swelling. EFFUSION:None visible. OTHER: Negative. IMPRESSION: Stable exam, no interval change Electronically authenticated by: ASHLEY CARRANZA Date: 2021-09-28 07:56[facility] No data available for this section [facility] Evaluation note* Diagnosis Endometrioma- Primary Endometriosis, site unspecified documented in this encounter [facility] Work Phone: Evaluation note* Diagnosis Endometrioma Endometriosis, site unspecified documented in this encounter [facility] Work Phone: Evaluation note* Diagnosis Benign essential hypertension (CMS/HCC)- Primary Essential hypertension, benign Sinus tachycardia Other specified cardiac dysrhythmias 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 Endometriosis in scar of skin documented in this encounter [facility]* Diagnosis Heart palpitations- Primary Palpitations Benign [...] epicondylitis- Primary [facility] Diagnosis Heart palpitations- Primary Palpitations Benign essential hypertension (CMS/HCC) Essential hypertension, benign Generalized anxiety disorder (CMS/HCC) Generalized anxiety disorder Hypokalemia Hypopotassemia Benign essential hypertension (CMS/HCC)- Primary Essential hypertension, benign Sinus tachycardia Other specified cardiac dysrhythmias Benign essential hypertension (CMS/HCC)- Primary Essential hypertension, benign Sinus tachycardia Other specified cardiac dysrhythmias 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 Endometriosis in scar of skin Left lateral epicondylitis- Primary Hair loss Unspecified alopecia Hormone disorder Unspecified endocrine disorder Mood changes Unspecified episodic mood disorder [facility] Diagnosis Heart palpitations- Primary Palpitations Benign essential hypertension (CMS/HCC) Essential hypertension, benign Generalized anxiety disorder (CMS/HCC) Generalized anxiety disorder Hypokalemia Hypopotassemia Benign essential hypertension (CMS/HCC)- Primary Essential hypertension, benign Sinus tachycardia Other specified cardiac dysrhythmias Benign essential hypertension (CMS/HCC)- Primary Essential hypertension, benign Sinus tachycardia Other specified cardiac dysrhythmias 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 Endometriosis in scar of skin Left lateral epicondylitis- Primary Arthralgia, unspecified joint- Primary Chronic fatigue Other malaise and fatigue Low serum cortisol level Major depressive disorder, recurrent episode, mild (HCC) (CMS/HCC) Major depressive disorder, recurrent episode, mild [facility] N[facility]ative - Reported* Type Description Date Medical History HTN (hypertension) Medical History Anxiety and depression Medical History migraine headache Medical History seasonal allergies Surgical History essure Surgical History EGD Surgical History C section Surgical History hysterectomy 2014 Hospitalization History PE Hospitalization History child x3 Hospitalization History demise x1 [facility] Other Progress note No data available for this section [facility] Summary Purpose Family History No Family History [...] DATE CREATED AUTHOR AUTHOR'S ORGANIZ ATION 03/26/2023 [facility] DATE CREATED AUTHOR AUTHOR'S ORGANIZ ATION 05/24/2023 [facility] DATE CREATED AUTHOR AUTHOR'S ORGANIZ ATION 06/18/2023 [facility] DATE CREATED AUTHOR AUTHOR'S ORGANIZ ATION 01/07/2024 [facility] DATE CREATED AUTHOR AUTHOR'S ORGANIZ ATION 01/14/2024 [facility] DATE CREATED AUTHOR AUTHOR'S ORGANIZ ATION 06/12/2024 [facility] EPIC DATE CREATED AUTHOR AUTHOR'S ORGANIZ ATION 06/19/2024 [facility] REASON FOR VISIT (unrecogniz ed section and content) Reason Comments New Patient Visit Reason Comments Endometriosis Specialty Diagnoses / Procedures Ref[facility] To Contact General Surgery Diagnoses Endometrioma Vu Juarez MD [facility] [address] [facility] Department of [place] [address] [place] [address] [facility] Department of Surgery-[place] [id number] Referral ID Status Reason Start Date Expiration Date Visits Requested Visits Authorized [id number] Authorized Specialty Services Required 3 03/30/2024 1 1 Reason Comments Follow-up 1m Reason Comments Follow-up Elbow pain Sinusitis Reason Comments Menopausal Symptoms Reason Comments Follow-up Go over labs Care Teams (unrecognized sec tion and content) Production Generalist Relationship Specialty Start Date End Date Joseph Sotelo MD PCP - General Family Medicine 03/18/23 Production Generalist Relationship Specialty Start Date End Date Joseph Sotelo MD [address] [place] [address] PCP - General Family Medicine 04/02/23 Production Generalist Relationship Specialty Start Date End Date Joseph Sotelo MD PCP - General Cardiology 10/15/22 Production Generalist Relationship Specialty Start Date End Date Joseph Sotelo MD PCP - General Cardiology 10/15/22 Production Generalist Relationship Specialty Start Date End Date Joseph Sotelo MD PCP - General Cardiology 10/15/22 Joseph Sotelo MD [address] [place] [phone] PCP - [employer] 08/03/23 Production Generalist Relationship Specialty Start Date End Date Joseph Sotelo MD PCP - General Cardiology 10/15/22 Joseph Sotelo MD [address] [place] [phone] PCP - [employer] 08/03/23 Production Generalist Relationship Specialty Start Date End Date Joseph Sotelo MD PCP - General Cardiology 10/15/22 Joseph Sotelo MD [address] [place] [phone] PCP - [employer] 08/03/23 Production Generalist Relationship Specialty Start Date End Date Joseph Sotelo MD [address] [place] [phone] PCP - [employer] 08/03/23 Joseph Sotelo MD [address] [place] [address] PCP - General Family Medicine 05/31/24 Production Generalist Relationship Specialty Start Date End Date Joseph Sotelo MD [address] [place] [phone] PCP - [employer] 08/03/23 Joseph Sotelo MD [address] [place] [phone] PCP - General Family Medicine 05/31/24 Production Generalist Relationship Specialty Start Date End Date Joseph Sotelo MD [address] [place] [phone] PCP - [employer] 08/03/23 Joseph Sotelo MD [address] [place] [address] PCP - General Family Medicine 05/31/24 Production Generalist Relationship Specialty Start Date End Date Joseph Sotelo MD [address] [place] [phone] PCP - [employer] 08/03/23 Joseph Sotelo MD [address] [place] [address] PCP - General Family Medicine 05/31/24 Production Generalist Relationship Specialty Start Date End Date Joseph Sotelo MD [address] [place] [address] [facility] 08/03/23 Joseph Sotelo MD [address] [place] [phone] [facility] 05/31/24 Production Generalist Relationship Specialty Start Date End Date Joseph Sotelo MD [address] [place] [address] [facility] 08/03/23 Joseph Sotelo MD [address] [place] [address] [facility] 05/31/24 Production Generalist Relationship Specialty Start Date End Date Joseph Sotelo MD [address] [place] [address] [facility] 08/03/23 Joseph Stoelo MD [address] [place] [address] [facility] 05/31/24 FOR RECORDS PERTAINING TO PATIENTS WHO [...] BE BASED ON THE PRIMARY CLINICAL RECORDS. [employer] [facility]. provides no warranty or guarantee of the accuracy or completeness of information in this document.
[2024-07-08 15:09] LABS: Age Gdln ACOG Testing Note (.); HPV Aptima Negative (Negative); IGP, Aptima HPV, rfx 16/18,45 Note (.)
== END 2024-07-04 20:41 | disposition home or self-care (01) ==
LOC: LAB 20:40
PROVIDERS: PCP Family Medicine; Visit Provider Obstetrics & Gynecology
DX: Z01.419 Encounter for gynecological examination (general) (routine) without abnormal findings (principal)
CPT/HCPCS: 87624; 88175

== ENCOUNTER 2025-01-27 13:32 | Emergency (ER) | payer BC, SELFPAY ==
[2025-01-27 13:39] VITALS: BP 127/81; PULSE 90; TEMP 36.6; O2SAT 100; BMI 27.3
--- NOTE | 2025-01-27 14:12 | CT_ITS ---
The [address] [address] Patient Name: OTTO DEL ROSARIO MRN: [id number] date: 1985 Sex: F Assigned Patient Location: ER Current Patient Location: ED.MAIN Accession/Order Number: [id number] Exam Date: 01/27/2025 14:49 Report Date: 01/27/2025 15:58 At the request of: ROB CORTES Procedure: CT abdomen pelvis w con CT ABDOMEN AND PELVIS WITH INTRAVENOUS CONTRAST: CLINICAL HISTORY: lower left ab pain COMPARISON: None TECHNIQUE: Spiral images were obtained through the abdomen and pelvis following the administration of intravenous contrast. This CT exam was performed using one or more following dose reduction techniques: Automated exposure control, adjustment of the mA and/or kV according to patient size, or use of iterative reconstruction technique. FINDINGS: Lung Bases: [No acute findings.] Organs:Liver gallbladder portal vein spleen pancreas and adrenal glands appear unremarkable.[Subcentimeter low attenuating lesions are seen involving both kidneys, too small fracture characterization. Obstructing stone distal left ureter measuring 6 mm. There is associated delayed enhancement of the left kidney. Additional 5 mm calculus involving the inferior pole of the left kidney as well as a 3 mm stone superior pole left kidney. Punctate stones are seen involving the superior pole of the right kidney. Aorta appears normal in caliber. GI: Stomach is grossly unremarkable. Small bowel appears nondilated. No acute colonic abnormality. Sigmoid diverticulosis.[ Pelvis:[Urinary bladder is grossly unremarkable. Patient appears to be status post cervical sparing hysterectomy. Peritoneum/Retroperitoneum:No free air or free fluid or lymphadenopathy.[ Abd wall/Bones:Abdominal wall demonstrates no acute findings. Osseous structures demonstrate degenerative change.[ CT/CT abdomen pelvis w con IMPRESSION: Bilateral nephrolithiasis with 6 mm obstructing stone distal left ureter. Impression dictated by: Enrique Paredes Jr., D.O. 01/27/2025 3:58 PM Dictation Location: [place] [address] Electronically authenticated by: [id number] Y Date: 01/27/2025 15:58
--- NOTE | 2025-01-27 14:20 | ED_ITS ---
HPI - Abdominal Pain General Chief Complaint: Abdominal Pain Stated Complaint: ABDOMINAL PAIN L CALF PAIN Time Seen by Provider: 01/27/25 13:56 Source: patient Mode of arrival: walk-in History of Present Illness HPI narrative: 39-year-old female presents to the ED with suprapubic abdominal pain that began this morning. Pain is localized to the center of the lower abdomen, non- radiating, described as sharp and crampy, and rated 6/10. Nothing makes the pain better; no medications tried at home. Associated nausea but no vomiting. Patient reports similar pain in the past when she had an endometrial mass surgically removed in 2016 (status post hysterectomy). Patient also reports left lower extremity swelling and calf pain that started last night. She has a history of DVTs and multiple pulmonary emboli (x5), but no known clotting factor abnormalities. She had recent prolonged travel (long car ride). She denies chest pain, shortness of breath, or hemoptysis. Past medical history significant for endometriosis, kidney stones, and PE x5. MD elicited complaint: Reports abdominal pain Related Data Home Medications ?Medication ?Instructions ?Recorded ?Confirmed duloxetine 60 mg capsule,delayed 60 mg PO DAILY 01/07/24 release omeprazole 40 mg capsule,delayed 40 mg PO DAILY 01/07/24 release ondansetron 4 mg disintegrating 4 mg translingual Q6H PRN nausea 02/24/23 01/07/24 tablet and vomiting oxcarbazepine 300 mg tablet 300 mg PO BID 02/24/2309/24 lisinopril 10 mg tablet 10 mg PO DAILY 12/21/2309/24 baclofen 10 mg tablet 10 mg PO BID PRN muscle spas m 12/23/23 01/07/24 metoprolol succinate 25 mg 25 mg PO DAILY 12/23/2309/24 tablet,extended release 24 hr topiramate 50 mg tablet 50 mg PO BID 12/23/23 Previous Rx's ?Medication ?Instructions ?Recorded hydrocodone 5 mg-acetaminophen 325 1 tab PO Q6H PRN pa in 5 days #20 12/21/23 mg tablet tabs mirabegron 50 mg tablet,extended 50 mg PO DAILY #30 ta bs 12/30/23 release 24 hr hydrocodone 5 mg-acetaminophen 325 1 tab PO Q6H PRN pa in #14 tabs 01/27/25 mg tablet ketorolac 10 mg tablet 10 mg PO Q8H PRN pain #14 ta bs 01/27/25 tamsulosin 0.4 mg capsule (Flomax) 0.4 mg PO DAILY #7 caps 01/27/25 Allergies Allergy/AdvReac Type Severity Reaction Status Date / Time solifenacin (From [facility]) Allergy Severe Swelling Verified 01/05/24 15:23 of Lip/Tongue/Throat PFSH PFSH Medical History (Updated 01/27/25 @ 17:13 by SEBASTIAN ROBERTS) Ureteral stent present ?Z96.0 - Presence of urogenital implants (ICD-10) Migraines ?G43.909 - Migraine, unspecified, not intractable, without status migrainosus (ICD-10) Depression ?F32.A - Depression, unspecified (ICD-10) HTN (hypertension) ?I10 - Essential (primary) hypertension (ICD-10) DVT (deep venous thrombosis) ?I82.409 - Acute embolism and thrombosis of unspecified deep veins of unspecified lower extremity (ICD-10) IBS (irritable bowel syndrome) ?K58.9 - Irritable bowel syndrome without diarrhea (ICD-10) Renal lithiasis ?N20.0 - Calculus of kidney (ICD-10) Abdominal wall mass of left lower quadrant ?R19.04 - Left lower quadrant abdominal swelling, mass and lump (ICD-10) Surgical History (Updated 01/05/24 @ 15:25 by Vijaya Andrade RN) History of ureteroscopy ?Z98.890 - Other specified postprocedural states (ICD-10) H/O cystoscopy ?Z98.890 - Other specified postprocedural states (ICD-10) H/O ultrasound guided needle biopsy ?Z98.890 - Other specified postprocedural states (ICD-10) H/O colonoscopy ?Z98.890 - Other specified postprocedural states (ICD-10) History of esophagogastroduodenoscopy (EGD) ?Z98.890 - Other specified postprocedural states (ICD-10) History of endometrial ablation ?Z98.890 - Other specified postprocedural states (ICD-10) History of tonsillectomy ?Z90.89 - Acquired absence of other organs (ICD-10) History of hysterectomy ?Z90.710 - Acquired absence of both cervix and uterus (ICD-10) Family History (Updated 01/07/24 @ 10:56 by Vijaya Andrade RN) Other Family history of CHF (congestive heart failure) Family history of COPD (chronic obstructive pulmonary disease) Family history of cancer Family history of diabetes mellitus Family history of myocardial infarction Family history of stroke Social History (Updated 12/24/23 @ 07:24 by Yodit Trevizo) Within the past year, how often did you have a drink containing alcohol: monthly or less Smoking status: Never smoker Non-prescribed substance use: denies use 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 100% RA * HEENT: Mucous membranes moist, PERRL * Cardiac: Regular rate/rhythm, no murmurs. Mild swelling of left calf * Respiratory: Clear to auscultation bilaterally * Abdomen: Soft, suprapubic tenderness, no guarding or rebound, no CVA tenderness * Extremities: Mild swelling and tenderness of left calf, no redness/warmth/palpable cord, distal pulses intact, no neurovascular deficit * Neuro: A&O x3, no focal deficits * Skin: Warm, dry, no rash or diaphoresis Constitutional Vital Signs, click to edit/add: Last Vital Signs Temp 98.5 F 01/27/25 15:52 Pulse 89 01/27/25 15:52 Resp 16 01/27/25 15:52 BP 112/68 01/27/25 15:52 Pulse Ox 100 01/27/25 15:52 O2 Del Method Room Air 01/27/25 15:52 Course Vital Signs Vital signs: Vital Signs Temperature 97.8 F 01/27/25 13:39 Pulse Rate 90 01/27/25 13:39 Respiratory Rate 20 01/27/25 13:39 Blood Pressure 127/81 01/27/25 13:39 Pulse Oximetry 100 01/27/25 13:39 Oxygen Delivery Method Room Air 01/27/25 13:39 Temperature 98.5 F 01/27/25 15:52 Pulse Rate 89 01/27/25 15:52 Respiratory Rate 16 01/27/25 15:52 Blood Pressure 112/68 01/27/25 15:52 Pulse Oximetry 100 01/27/25 15:52 Oxygen Delivery Method Room Air 01/27/25 15:52 MDM - Abdominal Pain MDM Narrative Medical decision making narrative: Diagnostics: * Labs: WBC 12, normal chemistry/renal function, UA with blood but no infection * Imaging: * CT Abdomen/Pelvis: Obstructing 6 mm calculus distal left ureter with delayed enhancement of left kidney. Additional 5 mm and 3 mm stones in left kidney, punctate stones in right kidney. No evidence of aortic pathology. * Venous Duplex LLE: Negative for DVT ED Course: * IV fluids (1L NS), IV ondansetron 4 mg, IV ketorolac 30 mg given with good pain relief. * No evidence of acute DVT or PE. MDM: This is a 39-year-old female presenting with acute suprapubic abdominal pain and unilateral calf pain. Given her history of PE/DVT and recent travel, DVT was high on differential but ruled out by negative duplex ultrasound. CT scan revealed obstructing distal left ureteral stone with delayed renal enhancement, explaining her pain and hematuria. Labs reassuring with no renal failure. Pain controlled with Toradol. Patient hemodynamically stable and appropriate for outpatient management with close follow-up. Assessment / Diagnoses: * Obstructing left ureteral stone (6 mm) * Nephrolithiasis, bilateral * Left calf pain ? DVT ruled out Plan / Disposition: * Discharge home * Medications: * Flomax (tamsulosin) daily * Toradol (ketorolac) for pain control as needed * Follow-up: * PCP for ongoing care * Referral to urology (follow with Dr. Iglesias Thursday) * Return Precautions: Worsening pain, fever, chills, inability to urinate, persistent vomiting, or any new concerning symptoms Medical Records Attestation: I reviewed the patient's medical records. Lab Data Attestation: I reviewed the patient's lab results. Labs: Lab Results 01/27/25 01/27/25 Range/Units 13:46 14:21 WBC 12.7 H (4.0-11.0) 10^3/uL RBC 5.02 (4.20-5.40) 10^6/uL Hgb 13.9 (12.0-16.0) g/dL Hct 41.8 (36.0-48.0) % MCV 83.3 (81.0-99.0) fL MCH 27.7 (26.7-34.0) pg MCHC 33.3 (29.9-35.2) g/dL RDW 14.1 (11.0-15.0) % Plt Count 382 (150-450) 10^3/uL MPV 8.2 L (9.5-13.5) fL Neut % (Auto) 69.4 (43.0-75.0) % Lymph % (Auto) 20.9 (20.5-60.0) % [place] % (Auto) 7.7 (1.7-12.0) % Eos % (Auto) 0.9 (0.9-7.0) % Baso % (Auto) 0.5 (0.2-2.0) % Neut # (Auto) 8.8 H (1.4-6.5) 10^3/uL Lymph # (Auto) 2.7 (1.2-3.8) 10^3/uL [place] # (Auto) 1.0 H (0.3-0.8) 10^3/uL Eos # (Auto) 0.1 (0.0-0.7) 10^3/uL Baso # (Auto) 0.1 (0.0-0.1) 10^3/uL Abs Immat Gran (auto) 0.07 H (0.00-0.03) 10^3/uL Imm/Tot Granulo (auto) 0.6 H (0.0-0.5) % PT 10.8 (9.0-11.6) sec INR 1.02 APTT 26.5 (22.3-36.2) sec Sodium 144 (136-145) mmol/L Potassium 3.6 (3.5-5.1) mmol/L Chloride 108 H (98-107) mmol/L Carbon Dioxide 26.9 (21.0-32.0) mmol/L Anion Gap 12.7 BUN 13.0 (7.0-18.0) mg/dL Creatinine 0.98 (0.55-1.02) mg/dL Est GFR ( Amer) >60 (>=60 mL/min/1.73m^2) Est GFR (Non-Af Amer) >60 (>=60 mL/min/1.73m^2) BUN/Creatinine Ratio 13.3 Glucose 83 (74-106) mg/dL Lactate 0.6 (0.4-2.0) mmol/L Calcium 8.6 (8.5-10.1) mg/dL Total Bilirubin 0.4 (0.2-1.0) mg/dL AST 14 L (15-37) U/L ALT 19 (14-59) U/L Alkaline Phosphatase 153 H (46-116) U/L Total Protein 6.8 (6.4-8.2) g/dL Albumin 3.6 (3.4-5.0) g/dL Globulin 3.2 g/dL Albumin/Globulin Ratio 1.1 Lipase 73.0 (16.0-77.0) U/L Urine Color Yellow (YELLOW) Urine Clarity Clear (CLEAR) Urine pH 6.0 (5.0-9.0) Ur Specific [place] 1.025 (1.005-1.025) Urine Protein Negative (NEG/TRACE) mg/dL Urine Glucose (UA) Negative (NEGATIVE) mg/dL Urine Ketones Negative (NEGATIVE) mg/dL Urine Occult Blood Trace-i (NEGATIVE) Urine Nitrite Negative (NEGATIVE) Urine Bilirubin Negative (NEGATIVE) Urine Urobilinogen 0.2 (0.2-1.0) EU/dL Ur Leukocyte Esterase Negative (NEGATIVE) Urine RBC 2-5 A (0-2) #/HPF Urine WBC 0-2 A (NONE SEEN) #/HPF Ur Squamous Epith Cells Few A (NONE/RARE) #/LPF Urine Crystals None seen (None Seen) #/HPF Urine Bacteria None seen (NONE SEEN) #/HPF Urine Casts Seen A (NONE SEEN) #/LPF Hyaline Casts Rare Urine Mucus Trace A (NONE SEEN) Imaging Data Abdominal x-ray: Attestation: I have reviewed the pertinent imaging results. Radiologist's impression: ITS Impressions Abdomen/Pelvis CT 01/27/25 14:12 IMPRESSION: Bilateral nephrolithiasis with 6 mm obstructing stone distal left ureter. Impression dictated by: Joey Zaman Jr.OJessica 01/27/2025 3:58 PM Dictation Location: [place] [address] Electronically authenticated by: [id number] Y Date: 01/27/2025 15:58 Ultrasound left lower extremity venous Doppler negative for DVT Discharge Plan Discharge Chief Complaint: Abdominal Pain Clinical Impression: Left ureteral stone, Lower extremity pain, left Patient Disposition: Home, Self-Care Time of Disposition Decision: 17:17 Condition: Good Mode of Transportation: Private Vehicle Prescriptions / Home Meds: New ketorolac 10 mg tablet 10 mg PO Q8H PRN (Reason: pain) Qty: 14 0RF tamsulosin [Flomax] 0.4 mg capsule 0.4 mg PO DAILY Qty: 7 0RF hydrocodone-acetaminophen 5-325 mg tablet 1 tab PO Q6H PRN (Reason: pain) Qty: 14 0RF No Action lisinopril 10 mg tablet 10 mg PO DAILY hydrocodone-acetaminophen 5-325 mg tablet 1 tab PO Q6H PRN (Reason: pain) 5 Days Qty: 20 0RF mirabegron 50 mg tablet extended release 24 hr 50 mg PO DAILY Qty: 30 1RF duloxetine 60 mg capsule,delayed release(DR/EC) 60 mg PO DAILY omeprazole 40 mg capsule,delayed release(DR/EC) 40 mg PO DAILY ondansetron 4 mg tablet,disintegrating 4 mg translingual Q6H PRN (Reason: nausea and vomiting) oxcarbazepine 300 mg tablet 300 mg PO BID metoprolol succinate 25 mg tablet extended release 24 hr 25 mg PO DAILY topiramate 50 mg tablet 50 mg PO BID baclofen 10 mg tablet 10 mg PO BID PRN (Reason: muscle spasm) Print Language: Portuguese Instructions: Leg Pain (ED), Ureteral Stones (ED) Additional Instructions: Patient-Friendly After-Visit Summary (AVS): You were seen today for: * Lower abdominal pain and left leg swelling What we found: * Your leg ultrasound was negative for blood clots. * Your CT scan showed a 6 mm kidney stone blocking the tube (ureter) that drains your left kidney, which is likely causing your pain. You also have a few smaller kidney stones in both kidneys. What we did today: * Gave you IV fluids, nausea medicine, and pain medication with good relief * Checked labs and imaging to make sure you do not have an infection or kidney damage What to do at home: * Take Flomax (tamsulosin) once daily to help pass the stone * Take Toradol as prescribed for pain * Drink plenty of fluids to help flush the stone * Strain your urine if possible to catch the stone Follow-up: * Call your urologist (Dr. Iglesias) on Thursday for follow-up * Follow up with your primary care provider Come back to the ER right away if: * Pain becomes severe and not relieved with medication * You get a fever, chills, or feel very unwell * You are unable to urinate * You have uncontrolled vomiting * You notice new swelling, redness, or pain in your leg, or new chest pain or shortness of breath Referrals: Joseph Crawford MD [Primary Care Provider, Family Practice] - 1 week Bryant Iglesias MD [Physician, Urology] - As soon as possible Discharge Date/Time: 01/27/25 17:27
[2025-01-27 14:30] LABS: Hematocrit 41.8 % (36.0-48.0); Hemoglobin 13.9 g/dL (12.0-16.0); Immature Granulocytes Abs Auto 0.07 10^3/uL (0.00-0.03); Immature Granulocytes Pct Auto 0.6 % (0.0-0.5); Lymphocytes Absolute Auto 2.7 10^3/uL (1.2-3.8); Mean Corpuscular HGB Conc 33.3 g/dL (29.9-35.2); Mean Corpuscular Hemoglobin 27.7 pg (26.7-34.0); Mean Corpuscular Volume 83.3 fL (81.0-99.0); Platelet Count 382 10^3/uL (150-450); Red Blood Count 5.02 10^6/uL (4.20-5.40); White Blood Count 12.7 10^3/uL (4.0-11.0)
[2025-01-27 14:34] LABS: Glucose Urine UA NEGATIVE (NEGATIVE)
[2025-01-27 14:40] LABS: Cast Seen? SEEN #/LPF (NONE SEEN); Crystals Seen? None Seen #/HPF (None Seen)
[2025-01-27 14:44] LABS: Alanine Aminotransferase 19 U/L (14-59); Albumin Globulin Ratio 1.1; Albumin Level 3.6 g/dL (3.4-5.0); Alkaline Phosphatase 153 U/L (46-116); Anion Gap 12.7; Aspartate Amino Transferase 14 U/L (15-37); Blood Urea Nitrogen 13.0 mg/dL (7.0-18.0); Calcium 8.6 mg/dL (8.5-10.1); Carbon Dioxide 26.9 mmol/L (21.0-32.0); Chloride 108 mmol/L (98-107); Estimated GFR (African America >60 (>=60 mL/min/1.73m^2); Estimated GFR (Non-African Ame >60 (>=60 mL/min/1.73m^2); Globulin 3.2 g/dL; Glucose 83 mg/dL (74-106); Lipase 73.0 U/L (16.0-77.0); Potassium 3.6 mmol/L (3.5-5.1); Sodium 144 mmol/L (136-145); Total Protein 6.8 g/dL (6.4-8.2)
[2025-01-27 14:46] LABS: Lactate/Lactic Acid 0.6 mmol/L (0.4-2.0)
[2025-01-27 14:48] LABS: INR 1.02; Partial Thromboplastin Time 26.5 sec (22.3-36.2); Prothrombin Time 10.8 sec (9.0-11.6)
[2025-01-27] MEDS: 0.9 % SODIUM CHLORIDE 1,000 ML 999 ML IV (14:49)
[2025-01-27] MEDS: KETOROLAC TROMETHAMINE 30 MG/ML VIAL IVP (14:49)
--- OUTSIDE RECORDS SUMMARY | 2025-01-27 15:10 | XMS_ITS | CCD ---
Author Organization [facility] CliniSyri Care Team Providers Care Storekeeper Steward Name Role Phone ASHLEIGH, DR JOSEPH Carey Primary Care Unavailable NICOLAS ., DR BOWERS Admitting Unavailable NICOLAS ., DR BOWERS Attending Unavailable NICOLAS ., DR BOWERS Consulting Unavailable ZIEBER, DR BRIAN Carlos Consulting Unavailable FAWWAMike, SHAIKH Neema Consulting Unavailable HARDIKWSHAIKH Neema PENNINGTON Admitting Unavailable NADERER, DR JOSEPH Carey Primary Care Unavailable TOMI, SHAIKH Neema Attending Unavailable CATHY, JAYDEN Consulting Unavailable DOUG, AYDIN Attending Unavailable ASHLEIGH, DR JOSEPH Carey Primary Care Unavailable DOUG, AYDIN Admitting Unavailable DOUG, AYDIN Consulting Unavailable NADJULIETTE, DR JOSEPH Carey Primary Care Unavailable NICHOLE, DR ALLIE Carlos Consulting Unavailable NICHOLE, DR ALLIE Carlos Admitting Unavailable NICHOLE, DR ALLIE Carlos Attending Unavailable BRYCE, AMINA Consulting Unavailable NADEREBreanna, DR JOSEPH Carey Primary Care Unavailable NICHOLE, DR ALLIE Carlos Attending Unavailable NICHOLE, DR ALLIE Carlos Consulting Unavailable NICHOLE, DR ALLIE Carlos Admitting Unavailable COVARRUBIAS, FRANTZ Consulting Unavailable NADEREBreanna, DR JOSEPH Carey Primary Care Unavailable NADERER, DR JOSEPH Carey Admitting Unavailable NADERER, DR JOSEPH Carey Attending Unavailable DILLON, DR ASHLEY Hightower Consulting Unavailable NADJULIETTE, DR JOSEPH Carey Consulting Unavailable Hilary Staton Unavailable Joseph Sotelo MD Primary Care Provider [facility] Leal Attending Unavailable COMPA VALENZUELA Referring Unavailable ASHLEIGH, JOSEPH KIRKPATRICK Primary Care Unavailtramaine Sotelo MD, Joseph Kirkpatrick Primary Care Provider JOSEPH SOTELO Referring Unavailable JOSEPH SOTELO Primary Care Unavailable JOSEPH SOTELO Referring Unavailable JOSEPH SOTELO Primary Care Unavailable Joseph Sotelo MD Primary Care Provider [phone] LUÍS ANDRES Attending Unavailable NADERER, JOSEPH Referring [...] Primary Care Unavailable ABUNDIO WARREN Attending Unavailable NADERER, JOSEPH Referring Unavailable NADERER, JOSEPH Primary Care Unavailable Bryant IGLESIAS Attending Unavailable VANESSA, Bryant Carlos Attending Unavailable Bryant IGLESIAS Attending Unavailable Joseph Sotelo MD Unavailable Joseph Sotelo MD Primary Care Provider COLIN CARROLL Attending Unavailable NADERER, JOSEPH Referring Unavailable NADERER, JOSEPH Primary Care Unavailable COLIN CARROLL Attending Unavailable NADERER, JOSEPH Referring Unavailable NADERER, JOSEPH Primary Care Unavailable LUÍS ANDRES Referring Unavailable NADERER, JOSEPH Primary Care Unavailable COLIN CARROLL Referring Unavailable NADERER, JOSEPH Primary Care Unavailable COLIN CARROLL Attending Unavailable NADERER, JOSEPH Referring Unavailable NADERER, JOSEPH Primary Care Unavailable NADERER, JOSEPH A Primary Care Unavailable Shahana Larson Primary Care Unavailable Cesar, Ahmad Admitting Unavailable Cesar, Ahmad Attending Unavailable Cesar, Ahmad Referring Unavailable NADERER, JOSEPH Attending Unavailable COMPA VALENZUELA Attending Unavailable NADERER, JOSEPH Attending Unavailable COMAP VALENZUELA Attending Unavailable CESAR, AHMAD F Attending Unavailable NADERER, JOSEPH Referring Unavailable NADERER, JOSEPH Attending Unavailable NADERER, JOSEPH Attending Unavailable Shahana Larson DO Primary Care Provider [phone] Sophia Ureña APRN Attending Provider Allergies Allergy Classification Reported Allergen(s) Allergy Type Date of Onset Reaction(s) Facility (20 sources) Solifenacin Drug Allergy 05-31-2024 [facility] Medications Current Medications Medication Drug Class(es) Dates Sig (Normalized) Sig (Original) acetaminophen 500 mg oral tablet (20 sources) Start: 07-07-2023 take 2 tablets by mouth every eight hours as needed for pain and pain acetaminophen (Tylenol) 500 MG tablet Take 1,000 mg by mouth every 8 (eight) hours if needed for mild pain or moderate pain 07/07/2023 Active acetaminophen 325 mg / butalbital 50 mg / caffeine 40 mg oral tablet (20 sources) Barbiturate, Central Nervous System Stimulant, Methylxanthine Start: 03-28-2024 take 1 tablet by mouth four times daily as needed for headache butalbital-acetami nophen-caffeine 50-325-40 MG tablet Indications: Migraine without aura and without status migrainosus, not intractable Take 1 tablet by mouth 4 (four) [...] tablet by mouth every six hours HYDROcodone-acetaminophen ([place]) 5-325 MG tablet Take 1 tablet by mouth every 6 (six) hours. 02/24/2023 06/10/2024 Discontinued amoxicillin 875 mg / clavulanate 125 mg oral tablet (1 source) Penicillin-class Antibacterial Start: 01-15-2025 take 1 tablet by mouth every twelve hours Amoxicillin-Pot Clavulanate 875-125 mg tablet Active 1 TAB PO Every 12 hours January 15, 2025 12:00am Complies with drug therapy apixaban 2.5 mg oral tablet (7 sources) [...] to 10 days 0 03/10/2023 Active DULoxetine 30 mg delayed release oral capsule (20 sources) Serotonin and Norepinephrine Reuptake Inhibitor Start: 09-06-2024 End: 12-07-2024 take 1 capsule by mouth once daily DULoxetine (Cymbalta) [address] capsule Indications: Major depressive disorder, recurrent episode, mild Take 1 capsule (30 mg) by mouth Daily 90 capsule 09/07/2024 12/07/2024 Discontinued Start: 06-10-2024 End: 09-06-2024 take 1 capsule by mouth once daily DULoxetine (Cymbalta) [address] capsule Indications: Major depressive disorder, recurrent episode, mild (HCC) (CMS/HCC) Take 1 capsule (60 mg) by mouth Daily 06/10/2024 09/06/2024 Discontinued (Reorder) Start: 03-14-2024 End: 06-10-2024 DULoxetine (Cymbalta) 60 [...] Ordered Start: 01-28-2021 take 2 capsules by m outh once daily DULoxetine (Cymbalta) [address] capsule Take 2 capsules (120 mg) by mouth once daily. 0 01/28/2021 Active Cymbalta Active FLUoxetine 20 mg oral capsule (16 sources) Serotonin Reuptake Inhibitor Start: 01-15-2025 Fluoxetine 20 mg capsule Active MG PO January 15, 2025 12:00am Complies with drug therapy Start: 06-10-2024 take 1 capsule by mo uth once daily FLUoxetine (PROzac) 20 MG capsule Indications: Major depressive disorder, recurrent episode, mild Take 1 capsule (20 mg) by mouth Daily 30 capsule 5 06/10/2024 Active ibuprofen 800 mg oral tablet (20 sources) Nonsteroidal Anti-inflammatory Drug Start: 07-07-2023 take [...] Status: Ordered lisinopril 10 mg oral tablet (20 sources) Angiotensin Converting Enzyme Inhibitor Start: 01-15-2025 Lisinopril 10 mg tablet Active MG PO January 15, 2025 12:00am Complies with drug therapy Start: 12-02-2023 End: 12-01-2024 take 1 tablet by mouth in the morning lisinopril 10 MG tablet Indications: Benign essential hypertension Take 1 tablet (10 mg) by mouth in the morning. 90 tablet 3 12/02/2023 Active Start: 06-11-2023 take 1 tablet by rosa th in the morning lisinopril 10 MG tablet Indications: Benign essential hypertension (CMS/HCC) Take 1 tablet (10 mg) by mouth in the morning. 30 tablet 3 06/11/2023 Active Start: 07-04-2014 take 1 tablet by rosa th once daily lisinopril 20 mg Tab 20 mg = 1 tab(s), Oral, Daily, Refills(s) 0, High blood pressure Start Date: 07/04/14 Status: Ordered LORazepam 0.5 mg oral tablet (5 sources) Benzodiazepine Start: 12-07-2024 End: 12-17-2024 take 1 tablet by mouth three times daily as needed for anxiety LORazepam (Ativan) 0.5 MG tablet Indications: Generalized anxiety disorder Take 1 tablet (0.5 mg) by mouth 3 (three) times a day as needed for anxiety for up to 10 days 30 tablet 12/07/2024 12/17/2024 Active methylcellulose 2000 mg powder for oral suspension (2 sources) methylcellulose oral powder Take by mouth once daily. 0 Active 24 hr methylphenidate hydrochloride 27 mg extended release oral tablet (6 sources) Central Nervous System Stimulant Start: 12-07-2024 End: 03-07-2025 take 1 tablet by mouth in the morning methylphenidate ER (Concerta) 27 MG CR tablet Indications: ADD (attention deficit disorder) without hyperactivity Take 1 tablet (27 mg) by mouth in the morning. Do not crush, chew, or split. 90 tablet 12/07/2024 03/07/2025 Active 24 hr metoprolol succinate 25 mg extended release oral tablet (20 sources) beta-Adrenergic Fredi Start: 12-23-2023 take 1 tablet by mouth once daily [...] in the morning. 90 tablet 3 12/02/2023 Active Start: 05-06-2023 take 1 tablet by [...] capsule (20 sources) Proton Pump Inhibitor Start: 01-15-2025 Omeprazole 40 mg capsule,delayed release(DR/EC) Active MG PO January 15, 2025 12:00am Complies with drug therapy Start: 10-25-2024 omeprazole (Pr iLOSEC) [address] capsule Indications: Gastroesophageal reflux disease with esophagitis, unspecified whether hemorrhage TAKE 1 CAPSULE DAILY 90 capsule 3 10/25/2024 Active Start: 10-28-2023 omeprazole (Pr iLOSEC) [address] capsule Indications: Gastroesophageal reflux disease with esophagitis, unspecified whether hemorrhage TAKE 1 CAPSULE DAILY 90 capsule 3 10/28/2023 Active Start: 01-13-2015 take 1 capsule by mo uth once daily omeprazole (PriLOSEC) [address] capsule Take 1 capsule (40 mg) by mouth once daily. 0 01/13/2015 Active Omeprazole Activ e ondansetron 8 mg disintegrating oral tablet (20 sources) Serotonin-3 Receptor Antagonist Start: 12-07-2024 End: 12-07-2024 take 1 tablet by mouth every eight hours as needed for nausea and vomiting and nausea and nausea ondansetron ODT (Zofran-ODT) 8 MG disintegrating tablet Indications: Nausea Take 1 tablet (8 mg) by mouth every 8 (eight) hours if needed for nausea or vomiting 20 tablet 12/07/2024 Active Start: 12-23-2023 take 1 mg by mouth e very eight hours Zofran 4 mg Tab mg tab(s), Oral, q8hr, Refills(s) 0 Start Date: 12/23/23 Status: Ordered Start: 12-21-2023 End: 12-07-2024 ondansetron ODT (Zofran-ODT) 4 MG disintegrating tablet DISSOLVE 1 TABLET ON THE TONGUE EVERY 6 HOURS NEEDED FOR NAUSEA OR VOMITING 12/21/2023 12/07/2024 Discontinued Start: 02-24-2023 take 1 tablet by rosa th every eight hours as needed ondansetron ODT (Zofran-ODT) 4 MG disintegrating tablet Take 4 mg by mouth every 8 (eight) hours if needed. 0 02/24/2023 Active OXcarbazepine 300 mg oral tablet (20 sources) Anti-epileptic Agent Start: 01-15-2025 Oxcarbaze pine 300 mg tablet Active MG PO January 15, 2025 12:00am Complies with drug therapy Start: 09-14-2023 OXcarbazepine (Trileptal) 300 MG tablet Indications: Major depressive disorder, recurrent episode, mild TAKE 1 TABLET TWICE A DAY 180 [...] mg/3 mL) pen injector polyethylene glycol 3350 28329 mg powder for oral solution (20 sources) Osmotic Laxative End: 12-07-2024 take 17 g by mouth once polyethylene glycol, PEG, 3350 (Miralax) 17 g packet Take 17 g by mouth 1 (one) time 12/07/2024 Discontinued potassium bicarbonate 20 meq effervescent oral tablet (20 sources) Start: 03-11-2024 Effer-K 20 MEQ effervescent tablet 03/11/2024 Active promethazine hydrochloride 50 mg oral tablet (20 sources) Phenothiazine Start: 09-16-2024 promethazine (Phenergan) 50 MG tablet Indications: Nausea and vomiting, unspecified vomiting type TAKE 1 TABLET EVERY 6 HOURS IF NEEDED FOR NAUSEA OR VOMITING 30 tablet 44 09/16/2024 Active Start: 03-28-2024 take 1 tablet by rosa th every [...] hours 180 tablet 1 05/25/2023 08/23/2023 Active tamsulosin hydrochloride 0.4 mg oral capsule (20 sources) alpha-Adrenergic Fredi Start: 12-21-2023 tamsulosin (Flomax) 0.4 MG 24 hr capsule 12/21/2023 Active Tirzepatide 2.5 MG/0.5ML solution auto-injector (2 sources) Start: 09-06-2024 inject 2.5 mg by subcutaneous injection every week Tirzepatide 2.5 MG/0.5ML solution auto-injector Indications: Metabolic syndrome Inject 2.5 mg under the skin 1 (one) time per week 2 mL 2 09/06/2024 Active Tirzepatide 5 MG/0.5ML solution auto-injector (2 sources) Start: 09-28-2024 End: 12-07-2024 inject 5 mg by subcutaneous injection every week Tirzepatide 5 MG/0.5ML solution auto-injector Indications: Metabolic syndrome Inject 5 mg under the skin 1 (one) time per week 6 mL 3 09/28/2024 12/07/2024 Discontinued Tirzepatide 7.5 MG/0.5ML solution auto-injector (3 sources) Start: 12-07-2024 inject 7.5 mg by subcutaneous injection every week Tirzepatide 7.5 MG/0.5ML solution auto-injector Indications: Metabolic syndrome Inject 7.5 mg under the skin 1 (one) time per week 6 mL 3 12/07/2024 Active topiramate 50 mg oral tablet (20 sources) Start: 12-16-2023 topiramate 50 MG tablet Indications: Chronic migraine without aura without status migrainosus, not intractable TAKE 1 TABLET TWICE A DAY 180 [...] 06/11/2023 Discontinued take 1 tablet by rosa th once daily lisinopriL-hydrochlorothiazide 20-12.5 m g tablet Take 1 tablet by mouth once daily. 0 Active lamoTRIgine (1 source) Mood Stabilizer, Anti-epileptic Agent LaMICtal Not-Taking Ozempic, 0.25 or 0.5 MG/DOSE, 2 MG/3ML solution pen-injector (20 sources) Start: 024 End: inject 0.5 mg by subcutaneous injection every week Ozempic, 0.25 or 0.5 MG/DOSE, 2 MG/3ML solution pen-injector Indications: Morbid obesity (CMS/HCC) INJECT 0.5 MG UNDER THE SKIN ONCE WEEKLY 9 mL 3 03/03/2024 09/06/2024 Discontinued Start: 03-03-2024 inject 0.5 mg by sub cutaneous injection every week Ozempic, 0.25 or 0.5 MG/DOSE, 2 MG/3ML solution pen-injector Indications: Morbid obesity (CMS/HCC) INJECT 0.5 MG UNDER THE SKIN ONCE WEEKLY 9 mL 3 03/03/2024 Active predniSONE 10 mg oral tablet (10 sources) Start: 06-14-2024 End: 07-04-2024 take 6 tablets by mouth once daily, [...] daily x 3 days 39 tablet 06/14/2024 07/04/2024 Discontinued (Therapy completed) Start: 05-31-2024 End: 06-06-2024 take 1 tablet by mouth once daily predniSONE (Deltasone) 50 MG tablet Indications: Left lateral epicondylitis Take 1 tablet (50 mg) by mouth Daily for 6 days 6 tablet 05/31/2024 06/06/2024 Active 0.25 mg, 0.5 mg dose 1.5 ml semaglutide 1.34 mg/ml pen injector (20 sources) Start: 06-13-2022 End: 09-06-2024 inject 0.25 mg by subcutaneous injection every week Ozempic, 0.25 or 0.5 MG/DOSE, 2 MG/1.5ML solution pen-injector Inject 0.25 mg under the skin 1 (one) time per week. 06/13/2022 09/06/2024 Discontinued Semaglutide (1 source) Start: 01-15-2025 End: 01-15-2025 Semaglutide (Ozempic) 0.25 mg or 0.5 mg (2 mg/3 mL) pen injector Discontinued MG SUBCUT January 15, 2025 12:00am January 15, 2025 9:07am Problems Active Problems Problem Classification Problem Date Documented Da te Episodic/Chronic Acute and chronic tonsillitis (1 source) Chronic tonsillitis 07-04-2014 Chronic Anxiety disorders (20 sources) Generalized anxiety disorder; Translations: [Generalized anxiety disorder] Onset: 8 Resolved: 3 03-24-2023 Chronic Attention-deficit, conduct, and disruptive behavior disorders (8 sources) Attention deficit hyperactivity disorder, predominantly inattentive [...] Translations: [Rectal bleed] Episodic Headache; including migraine (20 sources) Chronic migraine without aura; Translations: [Chronic migraine without aura, not intractable, without status migrainosus] Onset: 3 04-08-2023 Chronic Immunizations and screening for infectious disease (1 source) Contact with or exposure to other viral diseases; Translations: [Contact with and (suspected) exposure to covid-19] 01-15-2025 Episodic Malaise and fatigue (20 sources) Fatigue; Translations: [Chronic fatigue, unspecified] Onset: 5 06-10-2024 Chronic Malaise and fatigue (4 sources) Fatigue 06-10-2024 Episodic Menopausal disorders (1 source) Menopausal and female climacteric states; Translations: [Menopausal and female climacteric states] Onset: 4 Chronic Mood disorders (20 sources) Recurrent major depressive episodes, moderate ; Translations: [Major depressive disorder, recurrent, moderate] Onset: 8 03-24-2023 Chronic Mood disorders (2 sources) Disturbance in mood; Translations: [Emotional lability] 06-02-2024 Episodic Nausea and vomiting (2 sources) Nausea; Translations: [Nausea] 12-07-2024 Episodic Nonmalignant breast conditions (2 sources) Breast lump; Translations: [Unspecified lump in the left breast, upper outer quadrant] 07-04-2024 Episodic Nutritional deficiencies (20 sources) Vitamin D deficiency; Translations: [Vitamin D deficiency, unspecified] Onset: 3 04-08-2023 Chronic Osteoarthritis (1 source) Arthritis 12-23-2023 Chronic Other endocrine disorders (2 sources) Disorder of endocrine system; Translations: [Endocrine disorder, unspecified] 06-02-2024 Episodic Other eye disorders (1 source) Other specified disorders of eye and adnexa Episodic Other female genital disorders (20 sources) Abnormal uterine bleeding; Translations: [Other specified [...] Episodic Other nutritional; endocrine; and metabolic disorders (20 sources) Metabolic syndrome X; Translations: [Metabolic syndrome] Onset: 3 04-08-2023 Chronic Other skin disorders (1 source) Localized swelling, mass and lump, trunk; Translations: [Localized swelling, mass and lump, trunk] Onset: 4 Episodic Other skin disorders (2 sources) Loss of hair; Translations: [Nonscarring hair loss, unspecified] 06-02-2024 Episodic Other upper respiratory infections (1 source) Sore throat symptom; Translations: [Acute pharyngitis, unspecified] 01-15-2025 Episodic Otitis media and related conditions (3 sources) Acute serous otitis media, unspecified ear; Translations: [Acute left otitis media] Onset: 4 01-15-2025 Episodic Pulmonary heart disease (2 sources) Personal history of pulmonary embolism; Translations: [Pulmonary embolism] Onset: 2 07-04-2014 Episodic Comment on above: hx of 5 in 11 Residual codes; unclassified (1 source) Pain, unspecified; Translations: [Pain, unspecified] Onset: 4 Episodic Spondylosis; intervertebral disc disorders; other back problems (20 sources) Degeneration of lumbar intervertebral disc; Translations: [Other intervertebral disc degeneration, lumbar region] Onset: 3 04-08-2023 Chronic Unclassified (1 source) New Patient Onset: 4 Unclassified (1 source) Establish Care Onset: 4 Unclassified (1 source) Post-op Onset: 4 Unclassified (3 sources) Patient on antidepressant monitoring plan Onset: 5 09-07-2024 Unclassified (3 sources) Baseline PHQ-9 Onset: 5 09-07-2024 Viral infection (2 sources) Disease caused by 2019-nCoV; Translations: [COVID-19] 01-15-2025 Episodic Past or Other Problems Problem Classification Problem Date Documented Da te Episodic/Chronic Abdominal pain (5 sources) Left sided abdominal pain; Translations: [Left sided abdominal pain] Onset: 06-04-2023 Episodic Asthma (20 sources) Asthma; Translations: [Unspecified asthma, uncomplicated] Onset: 10-10-2022 Resolved: 04-08-2023 03-24-2023 Chronic Cardiac dysrhythmias (20 sources) Sinus tachycardia; Translations: [Tachycardia, unspecified] Onset: 04-08-2023 05-06-2023 Episodic Diseases of white blood cells (20 sources) Leukocytosis; Translations: [Elevated white blood cell count, unspecified] Onset: 10-10-2022 Resolved: 04-08-2023 04-08-2023 Chronic Fluid and electrolyte disorders (20 sources) Hypokalemia; Translations: [Hypokalemia] Onset: 04-08-2023 04-08-2023 [...] IN LEFT LEG] Onset: 09-27-2021 Episodic Other connective tissue disease (20 sources) Lateral epicondylitis of left humerus; Translations: [Lateral epicondylitis, left elbow] Onset: 05-31-2024 05-31-2024 Episodic Other female genital disorders (4 sources) [...] Onset: 07-06-2023 Episodic Other non-traumatic joint disorders (20 sources) Joint pain; Translations: [Pain in unspecified joint] Onset: 04-08-2023 04-08-2023 Episodic Other nutritional; endocrine; and metabolic disorders (20 sources) Morbid obesity; Translations: [Morbid (severe) obesity due to excess calories] Onset: 04-08-2023 Resolved: 06-10-2024 04-08-2023 Chronic Other screening for suspected conditions (not mental disorders or infectious disease) (20 sources) Decreased cortisol level; Translations: [Other specified abnormal findings of blood chemistry] Onset: 06-10-2024 06-10-2024 Episodic Phlebitis; thrombophlebitis and thromboembolism (20 sources) History of thromboembolism of vein; Translations: [...] Test Name Value Interpretation Reference Range Facility No Panel InformationOrdered By: Sophia Ureña on 01-15-2025 Quick Strep (POC) [facility] Cortisol, ACTH Stimulationon 08-18-2024 Cortisol, ACTH Stimulation Normal [facility] Comment on above: Result Comment: [employer] 10.3 Col: 08/18/24 0925 Arnaud 30Min 22.7 Col: 08/18/24 1000 Arnaud 60Min 25.0 Col: 08/18/24 1030 PERFORMED BY: [facility] [address] [id number] PATHOLOGIST SENIOR SOFTWARE DEVELOPMENT ENGINEER ZARIA ROMERO M.D. Performed By: #### C ORLee Ann STIMULAT #### [address] [address] [facility] Coding Summaryon 07-18-2024 Coding Summary HTMLBase 64 YsjilwuxXRe2pQd+PGh lYWQ+QQ4WQJCiK22xwU NkuF7iL1ARHYjDYejzS RBZMCgJQrUrvfCeXA1y aXNjZXJu IC8+PA0fHEPzBwcwgBH zq6C3rEP8F73rhl9zIO ynbJF4YWYtAsHidatct 0jipPs4RHgxAqwqQiRt FLDoaU95SPQ7hH11Kg0 5fEJirRIjy7yhrYl2Bt GsMCMzSYF8sQmtCBlws 9CgGQItH38elPSxw5I2 IGNvbGxhcHNlOyBlbXB 3dH5yCNyhmhnvy8lrcj buDqo5ma70cXKsy0C4x LR1J4BqnuA4CIYcwNSn KveekQCQgO4zoihjx8c kqszvZbHdPDNdCOw6GG r9SORkfJypFpFfTT43X YN4TVCqkbFbN0VoGEGn yXnvTyF4q3T9Ya3LT5A OEaiiL3JPIHSOAIbayM Q+QG36ap29Z3JsBdnbH hy5ZBUkZGA1zUG9dC9r CWMzXBtww3S0iUA4Q6K ynoVcej3je8fcLZOvAN epX61tvRAxf3M2TFKdq DO3RVIgcLuzUtAmpJ35 Oyc+BIUyeFuez1RxMtd tj0puh6niaUb8PxrhCN OapdFzaUruXBG6q5BiP n9pNNPwtIR4jFS0gC6t OyFlWjN8TCitD574ZqW ijYOwZxbuY53iQ9SkrU A+FMZmFnu9WUBgkEhsJ B7jF4DpVUGyworutXLz bYjwTV9tGVKizluzAJN duS8vZWKfQ8x8MoYnGi M8CEcaI7QySFIntffnA f38pD8wGfFrZgZ5INhf R9GlzqL0YUAdkXThSJe hRTS2C25pa5K4CZYlVX GfZZI1wIZ1oN0oiLgzz jogbGVmdDsgdmVydGlj XDsbYKqfT423ZVQbfGy nPkNvZGluZyBEYXRlOi AgMDMvMTcvMjAyNTwvd GQ+ZNOsFXS6eAljBTJj sYYkBLypCw5pyTdlmXc yNC5kSAZvwtwjYASmbE 3eHLDuiDEdxTntDG8yB WYsqquqi972CyDpPQI1 DCJnlKJjQ8UlbZ1nGwD zCNJlDHOqJ7MneTVyEM xoS750YJskCxG9OGGab sYoH8UxMNEjhXbiNoC6 s7O9Iw7Lp4XhfoehP1T lwPVmQsFyXaphZXp2E8 RkPjwvdHI+YG59TTQoM S29KMq4ZES5wTonXPse AZSyH0FfvF5aUnSkHJY kZGRkOyc+PHRhYmxlIH dpZHRoPScxMDAlJyBzd QspMT8yVr5gQQWpNBOd dSfdqUNiKtZkg3jwJSP fPHotHC2jjJanM8ZxeU U2HTZjq1l6Xs17W88kN 3JvdXA+GXNssZH5eUC5 qP4zZcElYeD7KFgfE28 6FsDfkIVxJxkvb5oxr3 sitCx6MfS5YJMlghMir EzwSOS1v6TtSq50K53v IHdpZHRoPSIxNSUiIHZ mhKaupc4ktL4cAy3+PG MpgSP4vAR0oF9xAwQsV eZ4VGusI845BoCqiGNe Igvrq6psx5dnzFw1XlP zMODzocVwkEuuCUT4u7 LqMq05B9UylKrsa1VtQ az9me25rUXgg1J6nSG1 N3XuOXPztfxhtIHvfUi lWL9lYEOmhuyeHCWysF 0xKJLpC4b7IiMoAsD0W WlxT0DkywK1BJQgwFTm MQJusLZXpD1zuwgbc2z yltreFdWpENIeZKi0OY z7RSUvnRzzLkJiYVV9X bD1MWZ7aEFucS9etFio heluyC1zGxd+XGT6rBR lsLHFBN9yGzseuSY+PH WzHJD2dLxnKEzdVQZwl N9hBQUrJ0u0XlFlOwF9 IVkxV9NimeI6BKOfnYH yZHTxiPPZiG8wtzlrd1 aivwjcLfDdOAZzPCv6B Vn3VUVdcMsfSmYxCVE3 EaS0LTW5dXNnaF7svMk eoaizpK9uZmh+QmlydG zhKUL0ZJd0H5FzAuy1B UJylUliDB5yaNSoFEgy Pa9exNageRieEI5cDDX djlptj232LrXfl6ywOX PciKOgZJtpWGG2B84yb 7I8SFFfOFYbIYV3xIU7 wE2jsIheiaeqpWBmkCs gdmVydGljYWwtYWxpZ2 37ZQEmbYiaUyGiPYg4X 7BcNls9WIPgaLvxXF6g pUMmMGpiLl6ytDvpkCw sTM4iOZFpvutnw162Ub Prp5xzXIQnrFTuYJptW FC0U91ll3T1SLAuVCMx ZMV1aBF9nB5ikHqovju gbGVmdDsgdmVydGljYW kpUDijE485FYEdpEfbU zRwoPd3T6DlQxz1FSVb kXsnLU3qcWIuBFikVq3 knFcovRqnKM3lSAJixe xpe033YdLtl9zvXARxi LJaAPwxEDP9I48ta3B9 DAEkLPWbHVV9iFZ0zM5 hbGlnbjogbGVmdDsgdm LhoNdvXRfuTKkoY705H HRvcDsnPlBhdGllbnQg IPeyBSw8V4JrGrjpePM +XD47PSYxFE87iPHwyD Ajs8lqwLl8FiAuYDJaM FW1yApvKDfgv9PvYRBb H77rqMZrb3M5UZQmrJc paKXsVeAxiMR5qK8xCS wreicmd1onnmayQybly 4ynpa69sN78F78bAWxd ZHRoPSIzMCUiIHZhbGl nhg3tgS6tGh2+PGNvbC N9aMD7sW2tSEMkPzN0U EovR541SoRfwBMnCtij r6bph2ytyRw9YdI4XUD wapFlaMxoCXQ8b5CcPm 06J46bJRvaTTFbREGtA XEfJLUbsMmeng2scV7s Ii8+BHQpxAL4hPJ6iC8 dJtZaQbH3WZwxH007Fm ZfyBJhHumuM60bH8Zjk XA+GXGzHjz1TSXckNpl MZ7mvXUjQZvcMo1zBCD 7DvPsAhTcMYrhI5NgFQ SqmhyimuwmtXU1UWEyC HUvdP91Dv2qtYkbMLJx aFJCgX4umvvrn5wtlhv sYiRbGJAzSLk2IOh2WW YyuQxfVtVvMHJ2AeI3L BM1gGYvfC0ukShzvhyf cN2pB1BlVMQwozppTn0 8rY8wEmYiMjH0VFjbIw c+YYoBC6BaKP2CTMePR 3EaY2OGGB98GD85bWHo f2W1aEL7G2NeLRRjubo budokjNQ1SMMoLDXqdD 68pWZcFEciRe6od3O7t 714AGObSDFfgE41Fl2t lRbqFKQbsTVXjF1dirx qa7suvedvHpNmYQZnHA a9KAm6SNGwySnmDsOzV NG8ZsG8PPV3iJXfwE3r lTpfelwdiC2cLvy+MDI wVSAxGBj3HauspZC+PH QfZPL8aGejQWbbZKDdr Y6wIUKsE5s6QvWxMfD7 HWxtT0WjTKGgrjiuUv3 1vN5cBpXaQbH7YSswP3 CwmgH7QTPfaXGwEHbbE QJ3P25jy4F2FPMbDQWm AAJ0kCA4fK7hhOijatu gbGVmdDsgdmVydGljYW pxQYjhZ514QOZmqDvrB aJ3YUjwDUJhJL50PZ20 oRQsv6G1tRF7D4BuHAU edfgapbsovOO6NPEaQG TxnZ45yNVmRWqgPw0ul 9V1x097NYEvEEFqdT15 Bm2meXcqJZRldPHCzI6 fodyow6trzkflRwYcTO UbHFh0NAu0BAGkbPmkC tCtRGY8DzF2CKL0xNPu pA5zrMcjjhbuxL3mSux +GdGHTUwYHL44PT64bD Cqi3E6rJX7X1BhASUwa ccdxbkphBX4IWArKAJh yL32rQXpVNhxOq0sk6W 8t098AVGhHVOlgD63Fp 5gqLuyMLHcnJSNcT6yu ejvu3ikzmyuXnLeDGAc YYm3YWt3NVSspPhhGeQ oTJV7WhT7ZDV9pOWefQ 6gzQbxqmgnjJ6bDhw+T 0T9V7LxJdqzdII+PC90 TFFlTG91qZBtyVZmq3n rhMq0MjYrENFfTDD5hD thOZlzw1FoXVLmT33zt EJcu6O0GSBfzOleoVPy SlEbcFM8uO8kATakngw pj3rupfniYsgux5vyrc 48iQ11D02aURsdNGWzG UCjYKAgJVRnlJfttt8n nQ8sRp5+LWOiyCL0cTL 2vY8kSfAcOcJ4UEonG4 29QcYoaFTqUewei5var 1nooUu6BnLdXGYzmtSq eEnuVMH0t0NfHn01U30 sIHdpZHRoPSIyMCUiIH EibWsrbn7vpI7jBb6+P N0mt7hwkx90vO86bMJ+ ZSOgHPN2sEhiYEosWLG hcN6xOWhcLaY4MHXlKq GixZ42bYWdMWeqTn6dv JjbfXovQM4bSZZkvpwd n884YjLjx5zrLMYzcXE fSWexDPA4A60ot9S2AM SzXAFxJZN6hYS3gE8fo GlnbjogbGVmdDsgdmVy uYywZLumDOcfD549NZJ xnIvzVrXhuOTqT2qjiw KXPN6yUjflwVW+PHRkI FU8yAxiQPpvAPAxaD1s MRDnV8v8FtSmXuS3LDz gR9QsgxB5CAMyeIDdFX ZvuUHOwJ5kujfgm2mvk dlgUdUgXTDnYVz7LTf0 PBXsqAwvJlYxTEY8ThH 3UOM0hLRasH4vwZuaoi hacJ6sFiy+RklOOjwvd GQ+OZHkSGZ6wKsbYLvp WNMrqJ0pOOYbS6g6VtZ hKrA3FRuoT1EnweP3UG KpoVJfFLEulMUKvJ9ux zsqm0odexxwKbPlNXUr JOy4VPd9DDOmgRteTsD uUWU1NrX7KGI2bZJcvW 7uhUwjcsyprO4mOef+T VJOOjwvdGQ+PHRkIHN0 aBjrGFpwPZOabU2iNCX mB1v0SpWuHtB5BWvlD1 WwhdW2OASjaODjCPJxs OYTiO4mewovh0evhzci GwXtODSpGKr3GBo7FVV xfJsbWrRtKLZ3WhE0XN O7eLUieZ1bcDqmiuzfc G9wOyc+REU4JMN7BL89 VE48N7HpDtwyvKPwjXY +PHRhYmxlIHdpZHRoPS jpVCWmMjWlwBggTJ6jF m9wLPQqIEXxkOibeLMc OiB (more content not included)... Normal [facility] Lab - Toxicology Resultson 0 07-12-2024 Lab - Toxicology Results [id number] 4#1.00OTGTIFF Normal [facility] QuantiFERON-TB Gold Pluson 0 07-12-2024 QuantiFERON-TB Gold Plus Negative Invalid Interpretation Code Negative [facility] Comment on above: Result Comment: No r esponse to M tuberculosis antigens detected. Infection with M tuberculosis is unlikely, but high risk individuals should be considered for additional testing (ATS/IDSA/CDC Clinical Practice Guidelines, 2017). The reference range is an Antigen minus Nil result of <0.35 IU/mL. Chemiluminescence immunoassay methodology Performed At: [address] [id number] Abril Acuna PhD Ph:[phone] Performed By: #### 5 [id number], [id number], [id number] #### [facility] (DEFAULT) [address] [place] [address] QuantiFERON Incubation Incubation performed. Invalid Interpretation Code [facility] Comment on above: Result Comment: Perf ormed At: [address] [id number] Abril Acuna PhD Ph:[phone] Performed By: #### 5 [id number], [id number], [id number] #### [facility] (DEFAULT) [address] [place] [address] Triage Panel 10on 07-11-2024 Drug Screen Complete Collected Normal [facility] Comment on above: Performed By: #### 2 [id number] #### [facility] (DEFAULT) [address] [place] [address] HBSab Qnt LCon 07-10-2024 Hep B Surf Ab Quant LC 7.5 mIU/mL Low Immunity>10 M [facility] Comment on above: Result Comment: Stat us of Immunity Anti-HBs Level Inconsistent with Immunity 0.0 - 10.0 Consistent with Immunity >10.0 Performed At: [address] [id number] Abril Acuna PhD Ph:[phone] Performed By: #### 5 [id number], [id number], [id number] #### [facility] (DEFAULT) [address] [place] [address] Measles/Mumps/Rubella Immuni ty LCon 07-10-2024 Mumps Abs, IgG LC <9.0 Low Immune >10.9 [facility] Comment on above: Result Comment: Nega tive <9.0 Equivocal 9.0 - 10.9 Positive >10.9 A positive result generally indicates past exposure to Mumps virus or previous vaccination. Performed At: [address] [id number] Abril Acuna PhD Ph:[phone] Performed By: #### 5 [id number], [id number], [id number] #### [facility] (DEFAULT) [address] [place] [address] Rubella Antibodies, IgG LC 1.26 index Invalid Interpretation Code Immune >0.99 [facility] Comment on above: Result Comment: Non- immune <0.90 Equivocal 0.90 - 0.99 Immune >0.99 Performed By: #### 5 [id number], [id number], [id number] #### [facility] (DEFAULT) [address] [place], [place] [id number] Rubeola Ab, IgG, EIA LC 94.0 AU/mL Invalid Interpretation Code Immune >16.4 [facility] Comment on above: Result Comment: Nega tive <13.5 Equivocal 13.5 - 16.4 Positive >16.4 Presence of antibodies to Rubeola is presumptive evidence of immunity except when acute infection is suspected. Performed By: #### 5 [id number], [id number], [id number] #### [facility] (DEFAULT) [address] [place] [address] Aldosterone [Mass/Vol]on ALDOSTERONE 4.9 ng/dL Normal [facility] Comment on above: Result Comment: NOTE INTERPRETIVE [...] reference intervals for this test in the [facility] Test Directory ([employer]). Performed By: [facility] [address] [place] [address] House Rn: Saw Ochoa MD, PhD CLIA Number: [id number] Performed By: #### 1 763-2 #### [facility] ([id number]) [address] [place] [address], [place] [address] C REACTIVE PROTEINon 025 CRP [Mass/Vol] mg/L Normal 0.000-0.744 [facility] Comment on above: Performed By: #### 1 988-5, 85738-4, 39804-5, 12988-0 #### [facility] ([id number]) [address] [place] [address], [address] [place] [address] #### 2141-0 #### [facility] ([id number]) [address] [place] [address] C-reactive proteinon 025 CRP [Mass/Vol] mg/L 0.000 - 0.744 mg/dL [facility] Comment on above: PERFORMED AT [facility] [address] [place] [address]. [address],[place] [address] CRP [Mass/Vol]on 2024 [facility] Corticotropin (P) [Mass/Vol] on 2024 Adrenocorticotropic Hormone, P <5.0 Low [facility] Comment on above: Result Comment: NOTE REFERENCE VALUE 7.2-63 (a.m. collection) Test Performed by: [place] [address] [employer] Bar[employer] Finisher: Kisha Valdez Ph.D.; CLIA# [id number] Performed By: #### 1 988-5, 84141-1, 43996-0, 17839-7 #### [facility] ([id number]) [address] [facility], [address] [place] [address] #### 2141-0 #### [facility] ([id number]) [address] [place] [address] Cortisol [Mass/Vol]on 2024 CORTISOL 2.9 ug/dL Normal [facility] Comment on above: Result Comment: Due to the diurnal variation of cortisol levels in normal subjects, all cortisol measurements should be referenced to the time of day of sample collection. AM Cortisol Age>=6 6.7-22.4 ug/dL PM Cortisol Age>=6 <10 ug/dL Performed By: #### 2 143-6 #### [facility] ([id number]) [address] [facility], [address] [place] [address] ESR Photometric method (Bld) [Velocity]on 2024 ESR, ERYTHROCYTE SEDIMENTATION RATE 2 mm/h Normal 0-20 [facility] Comment on above: Performed By: #### 1 988-5, 60632-9, 45810-8, 93478-2 #### [facility] ([id number]) [address] [facility], [address] [place] [address] #### 2141-0 #### [facility] ([id number]) [address] [place] [address] Nuclear Ab IA Ql (S)on 06-15 JASON Screen w/reflex Negative Normal NEG [facility] Comment on above: Result Comment: Testing performed using multiplex flow immunoassay. Eleven different antigens associated with systemic autoimmune diseases (dsDNA,Sm,Sm/APPLICATION SECURITY CONSULTANT,APPLICATION SECURITY CONSULTANT,Chromatin, SSA,SSB,Radha-1,Scl70,Ribo P,Centromere B) are included in this screening test. Performed By: #### 1 988-5, 04496-5, 71192-3, 63495-5 #### [facility] ([id number]) [address] [facility], [address] [place] [address] #### 2141-0 #### [facility] ([id number]) [address] [place] [address] Rheumatoid factor Nephelomet ry Qn (S)on 2024 RHEUMATOID FACTOR <10 Normal <20 [facility] Comment on above: Performed By: #### 1 988-5, 76146-3, 69262-5, 46051-7 #### [facility] ([id number]) [address] [facility], [address] [place] [address] #### 2141-0 #### [facility] ([id number]) [address] [facility], [place] [address] [facility] HEMOGLOBIN A1Con 025 Glucose [Mass/Vol] 100 mg/dL [facility] HbA1c (Bld) [Mass fraction] 5.1 % 4.5 - 6.2 % [facility] Comment on above: ADA RECOMMENDED LIMI T 4.0 - 6.0 ADA THERAPEUTIC TARGET < 7.0 ACTION SUGGESTED > 7.0 [facility]-05-2024 Urea nitrogen [Mass/Vol] 14 mg/dL 7.0 - 18.0 mg/dL [facility] ALL CARBON DIOXIDEon 024 CO2 [Moles/Vol] 27.6 mmol/L 21.0 - 32.0 mmol/L [facility] ALL CHLORIDEon 03-05-2024 Chloride [Moles/Vol] 109 mmol/L High 98 - 10 7 mmol/L [facility] ALL PHOSPHOROUSon 03-05-2024 Phosphate [Mass/Vol] 3.7 mg/dL 2.6 - 4 .7 mg/dL [facility] ALL SODIUMon 03-05-2024 Sodium [Moles/Vol] 145 mmol/L 136 - 145 mmol/L [facility] ALL URIC ACIDon 03-05-2024 Urate [Mass/Vol] 4.3 mg/dL 2.6 - 6.0 mg/dL [facility] CALCIUMon 03-05-2024 Calcium [Mass/Vol] 8.1 mg/dL Low 8.5 - 10. 1 mg/dL [facility] No Panel Informationon 03-05 Interpretation and review of laboratory results Abnormal [facility] CREATININEon 03-05-2024 Creatinine [Mass/Vol] 0.97 mg/dL 0.55 - 1.02 mg/dL [facility] GFR/1.73 sq M.predicted CKD-EPI (S/P/Bld) [Vol rate/Area] >60 >=60 mL/min/1.73m 2 [facility] EGFR-NON AF CITIZEN OF [place] >60 >=60 mL/min/1.73m 2 [facility] APTTon 12-24-2023 aPTT Coag (Bld) [Time] 31.6 s NO [facility] No [facility] 12[facility] PROT[facility]OMBIN TIME INR W/O COUMon 12-24-2023 PT Coag (PPP) [Time] 10.5 s [facility] TBH INR 0.99 [facility] Comment on above: DESIRED INR: 2.0-3.0 CONDITIONS NOT LISTED BELOW 2.5-3.5 FOR PROSTHETIC HEART VALVE REPLACEMENT 2.5-3.5 RECURRENT THROMBOSIS URINE CULTURE, ROUTINEon Bacteria identified Cx Nom (U) Urine Culture, Routine [facility] Healthcare Bacteria identified Cx Nom (U) Mixed urogenital jack [facility] Bacteria identified Cx Nom (U) 25,000-50,000 colony forming units per mL [facility] Bacteria identified Cx Nom (U) Performed at: [facility] Bacteria identified Cx Nom (U) [address] [place] [phone] [facility] Bacteria identified Cx Nom (U) Gun Barrel Finisher: Armand Samuels PhD, Phone: [phone] [facility] Ambulatory Visit Summaryon 0 12-23-2023 Ambulatory [...] [facility] [address], [place] [phone] Medications What How Much When Instructions Unchanged [...] these instructions at home: Medicines ? Take kklj-ugo-euoflgt and prescription medicines only as told by your health care provider. ? If you were prescribed an antibiotic medicine, take it as told by your health care provider. Do not stop taking the antibiotic even if you start to feel better. ? As (more content not included)... Normal [facility] Urology Office/Clinic Noteon 12-23-2023 Urology Office/Clinic Note Urology Office/Clinic Note Chief Complaint NEW PT. hospital follow up HPI Staff New Pt. Pt was seen at [facility] due to abdominal pain. KUB 12/21/23, [...] female new pt here for f/u to [facility] ER visit due to kidney stones.. 1. Kidney stones (N20.0: Calculus of kidney) Hx of kidney stones, never required intervention. Saw Dr. Briones, urologist in [place], in the past. CT AP wo con [...] With When Contact Information Bryant IGLESIAS MD, [facility], [facility] [address], [place] [address]- [phone] Additional Instructions: sched L URS/laser litho/possible stent [...] Left ureteral (more content not included)... Normal [facility] Comment on above: Result Comment: Elec [...] Roberson MD on 09/26/2023 9:30 AM Normal [facility] XR HIP LT 2-3 VIEWS W [...] Menchaca MD on 09/26/2023 6:59 PM Normal [facility] BASIC METABOLIC PANLon 07-05 Anion gap [Moles/Vol] 7 mmol/L Normal 5-15 [facility] Comment on above: Performed By: #### B ZIAN CBCA #### [facility] ([id number]) [address], [address] [place] [address] Calcium [Mass/Vol] 7.8 mg/dL Low 8.5-10.5 [facility] Comment on above: Performed By: #### B ZAIN CBCA #### [facility] ([id number]) [address], [address] [place] [address] Chloride [Moles/Vol] 111 mmol/L High 98-109 [facility] Comment on above: Performed By: #### B ZAIN CBCA #### [facility] ([id number]) [address], [address] [place] [address] CO2 [Moles/Vol] 22 mmol/L Normal 22-32 [facility] Comment on above: Performed By: #### B ZAIN CBCA #### [facility] ([id number]) [address] [address] [place] [address] Creatinine [Mass/Vol] 0.62 mg/dL Normal 0.40-1.00 [facility] Comment on above: Result Comment: METH OD TRACEABLE TO IDMS STANDARD Performed By: #### B ZAIN CBCA #### [facility] ([id number]) [address] [address] [place] [address] eGFR (CKD-EPI) NON-RACE DEPENDENT >90 Normal >59 [facility] Comment on above: Result Comment: Reported eGFR is based on the CKD-EPI 2020 equation that does not use a race coefficient. Performed By: #### B ZAIN CBCA #### [facility] ([id number]) [address], [address] [place] [address] Glucose [Mass/Vol] 118 mg/dL High 65-99 [facility] Comment on above: Performed By: #### B ZAIN CBCAurelio #### [facility] ([id number]) [address], [address] [place] [address] Potassium [Moles/Vol] 3.6 mmol/L Normal 3.5-5.0 [facility] Comment on above: Performed By: #### B ZAIN CBCAurelio #### [facility] ([id number]) [address] [address] [place] [address] Sodium [Moles/Vol] 140 mmol/L Normal 134-146 [facility] Comment on above: Performed By: #### B ZAIN CBCA #### [facility] ([id number]) [address] [address] [place] [address] Urea nitrogen [Mass/Vol] 10 mg/dL Normal 5-23 [facility] Comment on above: Performed By: #### B ZAIN CBCA #### [facility] ([id number]) [address], [address] [place] [address] CBC AND AUTO DIFFon 07-06-19 24 ABSOLUTE BASOPHIL 0.0 X10E9/L Normal 0.0-0.2 [facility] Comment on above: Performed By: #### B MP, CBCA #### [facility] ([id number]) [address], [address] [place] [address] ABSOLUTE NEUTROPHIL 12.5 X10E9/L High 1.5-6.6 [facility] Comment on above: Performed By: #### B MP, CBCA #### [facility] ([id number]) [address], [address] [place] [address] Basophils/100 WBC (Bld) 0.1 % Normal [facility] Comment on above: Performed By: #### B MP, CBCA #### [facility] ([id number]) [address], [address] [place] [address] Eosinophils (Bld) [#/Vol] 0.0 10*3/uL Normal 0.0-0.4 [facility] Comment on above: Performed By: #### B MP, CBCA #### [facility] ([id number]) [address], [address] [place] [address] Eosinophils/100 WBC (Bld) 0.0 % Normal [facility] Comment on above: Performed By: #### B MP, CBCA #### [facility] ([id number]) [address], [address] [place] [address] Erythrocyte distribution width (RBC) [Ratio] 14.1 % Normal 11.5-15.0 [facility] Comment on above: Performed By: #### B MP, CBCA #### [facility] ([id number]) [address], [address] [place] [address] Hematocrit (Bld) [Volume fraction] 38.7 % Normal 35-47 [facility] Comment on above: Performed By: #### B MP, CBCA #### [facility] ([id number]) [address] [address] [place] [address] Hemoglobin (Bld) [Mass/Vol] 13.0 g/dL Normal 11.7-15.5 [facility] Comment on above: Performed By: #### B MP, CBCA #### [facility] ([id number]) [address] [address] Lymphocytes (Bld) [#/Vol] 0.8 10*3/uL Low 1.0-3.5 [facility] Comment on above: Performed By: #### B ZAIN, CBCA #### [facility] ([id number]) [address] [address] Lymphocytes/100 WBC (Bld) 5.9 % Normal [facility] Comment on above: Performed By: #### B ZAIN, CBCA #### [facility] ([id number]) [address] [address] MCH (RBC) [Entitic mass] 29.7 pg Normal 27-34 [facility] Comment on above: Performed By: #### B MP, CBCA #### [facility] ([id number]) [address] [address] [place] [address] MCHC (RBC) [Mass/Vol] 33.6 g/dL Normal 32-36 [facility] Comment on above: Performed By: #### B MP, CBCA #### [facility] ([id number]) [address] [address] [place] [address] MCV (RBC) [Entitic vol] 88 fL Normal 80-100 P [facility] Comment on above: Performed By: #### B MP, CBCA #### [facility] ([id number]) [address], [address] [place] [address] Monocytes (Bld) [#/Vol] 0.4 10*3/uL Normal 0-0.9 [facility] Comment on above: Performed By: #### B MP, CBCA #### [facility] ([id number]) [address], [address] [place] [address] Monocytes/100 WBC (Bld) 3.3 % Normal P [facility] Comment on above: Performed By: #### B MP, CBCA #### [facility] ([id number]) [address], [address] [place] [address] Neutrophils/100 WBC (Bld) 90.7 % Normal [facility] Comment on above: Performed By: #### B MP, CBCA #### [facility] ([id number]) [address], [address] [place] [address] Platelet mean volume (Bld) [Entitic vol] 6.4 fL Low 7-12 [facility] Comment on above: Performed By: #### B MP, CBCA #### [facility] ([id number]) [address], [address] [place] [address] Platelets (Bld) [#/Vol] 349 10*3/uL Normal 150-450 [facility] Comment on above: Performed By: #### B MP, CBCA #### [facility] ([id number]) [address], [address] [place] [address] RBC COUNT 4.37 X10E12/L Normal 3.80-5.20 [facility] Comment on above: Performed By: #### B MP, CBCA #### [facility] ([id number]) [address], [address] [place] [address] WBC (Bld) [#/Vol] 13.8 10*3/uL High 4.0-11.0 [facility] Comment on above: Performed By: #### B MP, CBCA #### [facility] ([id number]) [address] [facility], [address] [place] [address] HCG ( test) Ql (U)o n 07-06-2023 Beta HCG ( test) Ql (U) Negative Normal NEG [facility] Comment on above: Performed By: #### 2 106-3 #### [facility] ([id number]) [address] [place] [address] Surgical Pathologyon 024 Surgical Pathology Normal [facility] Comment on above: Result Comment: [facility] [address] [place] [address] Surgical Pathology Consultation Patient Name:GISSEL DEL ROSARIO:1985 (Age: 38)Gender:FTaken:07/06/2023eported:07/10/2023hysician(s):Luís Andres M.D. ([phone])Copy To: Rec. #:[id number]: #[id number] Final Pathologic Diagnosis Bilateral fallopian tubes and [...] Out gp/07/10/2023Wagner Duncan MD Interpretation performed at [facility], [address] [place] [address], License number: [id number]. Clinical History Pelvic pain. Gross Description Received [...] with no fimbria identified. The serosa is purple-edawrds, smooth and glistening. Received separately in the [...] each K 1 lymph node, serially sectioned (11,ss,Y38-8423, m2) . /07/07/2023O Microscopic Findings Microscopic examination performed. Specimen(s) Received Bilateral tubes and ovaries and abdominal wall mass Fee Codes(s): 1; [address] CBC AND AUTO DIFFon 06-26-19 24 ABSOLUTE BASOPHIL 0.1 X10E9/L Normal 0.0-0.2 [facility] Comment on above: Performed By: #### C BCA #### [facility] ([id number]) [address] [facility], [address] [place] [address] ABSOLUTE NEUTROPHIL 6.4 X10E9/L Normal 1.5-6.6 [facility] Comment on above: Performed By: #### C BCA #### [facility] ([id number]) [address] [facility], [address] [place] [address] Basophils/100 WBC (Bld) 0.6 % Normal P [facility] Comment on above: Performed By: #### C BCA #### [facility] ([id number]) [address], [address] [place] [address] Eosinophils (Bld) [#/Vol] 0.1 10*3/uL Normal 0.0-0.4 [facility] Comment on above: Performed By: #### C BCA #### [facility] ([id number]) [address], [address] [place] [address] Eosinophils/100 WBC (Bld) 0.7 % Normal [facility] Comment on above: Performed By: #### C BCA #### [facility] ([id number]) [address], [address] [place] [address] Erythrocyte distribution width (RBC) [Ratio] 14.6 % Normal 11.5-15.0 [facility] Comment on above: Performed By: #### C BCA #### [facility] ([id number]) [address], [address] [place] [address] Hematocrit (Bld) [Volume fraction] 42.5 % Normal 35-47 [facility] Comment on above: Performed By: #### C BCA #### [facility] ([id number]) [address], [address] [place] [address] Hemoglobin (Bld) [Mass/Vol] 14.2 g/dL Normal 11.7-15.5 [facility] Comment on above: Performed By: #### C BCA #### [facility] ([id number]) [address], [address] [place] [address] Lymphocytes (Bld) [#/Vol] 3.7 10*3/uL High 1.0-3.5 [facility] Comment on above: Performed By: #### C BCA #### [facility] ([id number]) [address], [address] [place] [address] Lymphocytes/100 WBC (Bld) 33.4 % Normal [facility] Comment on above: Performed By: #### C BCA #### [facility] ([id number]) [address], [address] [place] [address] MCH (RBC) [Entitic mass] 29.3 pg Normal 27-34 [facility] Comment on above: Performed By: #### C BCA #### [facility] ([id number]) [address], [address] [place] [address] MCHC (RBC) [Mass/Vol] 33.4 g/dL Normal 32-36 [facility] Comment on above: Performed By: #### C BCA #### [facility] ([id number]) [address], [address] [place] [address] MCV (RBC) [Entitic vol] 88 fL Normal 80-100 [facility] Comment on above: Performed By: #### C BCA #### [facility] ([id number]) [address], [address] [place] [address] Monocytes (Bld) [#/Vol] 0.7 10*3/uL Normal 0-0.9 [facility] Comment on above: Performed By: #### C BCA #### [facility] [facility] ([id number]) [address], [address] [place] [address] Monocytes/100 WBC (Bld) 6.5 % Normal [facility] Comment on above: Performed By: #### C BCA #### [facility] ([id number]) [address] [place] [address] Neutrophils/100 WBC (Bld) 58.8 % Normal [facility] Comment on above: Performed By: #### C BCA #### [facility] ([id number]) [address], [address] [place] [address] Platelet mean volume (Bld) [Entitic vol] 6.6 fL Low 7-12 [facility] Comment on above: Performed By: #### C BCA #### [facility] ([id number]) [address], [address] [place] [address] Platelets (Bld) [#/Vol] 367 10*3/uL Normal 150-450 [facility] Comment on above: Performed By: #### C BCA #### [facility] ([id number]) [address], [address] [place] [address] RBC COUNT 4.84 X10E12/L Normal 3.80-5.20 [facility] Comment on above: Performed By: #### C BCA #### [facility] ([id number]) [address], [address] [place] [address] WBC (Bld) [#/Vol] 11.0 10*3/uL Normal 4.0-11.0 [facility] Comment on above: Performed By: #### C BCA #### [facility] ([id number]) [address], [address] [place] [address] CT ABD/PELVIS WO CONon 08-05 CT ABD/PELVIS [...] JAYDEN MORGAN Date: 2022-08-05 16:55 Normal [facility] QUANTIFERON TB GOLD PLUSon 0 06-18-2022 QuantiFERON Criteria Comment Normal [facility] Comment on above: Result Comment: Gagandeep [...] test. Performed By: #### Q NTTB #### [facility] [address] [place] [address] Dr. Yovanny Alcantara QuantiFERON Incubation Incubation performed. Normal [facility] Comment on above: Performed By: #### Q NTTB #### [facility] [address] [place] [address] Dr. Yovanny Alcantara QuantiFERON Mitogen Value >10.00 Normal [facility] Comment on above: Performed By: #### Q NTTB #### [facility] [address] [place] [address] Dr. Yovanny Alcantara QuantiFERON Nil Value 0.03 IU/mL Normal [facility] Comment on above: Performed By: #### Q NTTB #### [facility] [address] [place] [address] Dr. Yovanny Alcantara QuantiFERON TB1 Ag Value 0.05 IU/mL Normal [facility] Comment on above: Performed By: #### Q NTTB #### [facility] [address] [place] [address] Dr. Yovanny Alcantara QuantiFERON TB2 Ag Value 0.06 IU/mL Normal [facility] Comment on above: Performed By: #### Q NTTB #### [facility] [address] [place] [address] Dr. Yovanny Alcantara QuantiFERON-TB Gold Plus Negative Normal Negative [facility] Comment on above: Result Comment: No r esponse to M tuberculosis antigens detected. Infection with M tuberculosis is unlikely, but high risk individuals should be considered for additional testing (ATS/IDSA/CDC Clinical Practice Guidelines, 2017). The reference range is an Antigen minus Nil result of <0.35 IU/mL. Chemiluminescence immunoassay methodology Performed By: #### Q NTTB #### [facility] [address] [place] [address] Dr. Yovanny Alcantara HEPATITIS B SURFACE ANTIBODY , QUANTon 06-17-2022 Hepatitis B Surf AB Quant 3.5 mIU/mL Critically low Immunity>9.9 [facility] Comment on above: Result Comment: Stat us of Immunity Anti-HBs Level Inconsistent with Immunity 0.0 - 9.9 Consistent with Immunity >9.9 Performed By: #### H EPBSRF ####[facility] [address] [place], [place] [address]Dr. Yovanny Alcantara MMR IMMUNITYon 06-17-2022 Mumps Abs, IgG 17.4 AU/mL Normal Immune >10.9 [facility] Comment on above: Result Comment: Nega tive <9.0 Equivocal 9.0 - 10.9 Positive >10.9 A positive result generally indicates past exposure to Mumps virus or previous vaccination. Performed By: #### M MRIMMU #### [facility] [address] [place] [address] Dr. Yovanny Alcantara Rubella Antibodies, IgG 1.68 index Normal Immune >0.99 [facility] Comment on above: Result Comment: Non- immune <0.90 Equivocal 0.90 - 0.99 Immune >0.99 Performed By: #### M MRIMMU #### [facility] [address] [address] [address] Yovanny Alcantara Rubeola Ab, IgG 108.0 AU/mL Normal Immune >16.4 [facility] Comment on above: Result Comment: Nega tive <13.5 Equivocal 13.5 - 16.4 Positive >16.4 Presence of antibodies to Rubeola is presumptive evidence of immunity except when acute infection is suspected. Performed By: #### M MRIMMU #### [facility] [address] [address] [address] Yovanny Alcantara VARICELLA IGG ABon 3 Varicella Zoster IgG 947 index Normal Immune >[address] [facility] Comment on above: Result Comment: Nega tive <135 Equivocal 135 - 165 Positive >165 A positive result generally indicates exposure to the pathogen or administration of specific immunoglobulins, but it is not indication of active infection or stage of disease. Performed By: #### V ARCEL ####[facility] [address] [address]Dr. Yovanny Alcantara US CESIA DOP LEG RTon 12-31-19 22 [...] FRANTZ COVARRUBIAS Date: 2021-12-30 10:39 Normal [facility] CBC AUTO DIFFon 12-29-2021 BASO # 0.1 103/ul Normal 0.0-0.[address] [facility] Comment on above: Performed By: #### C BC #### [facility] [address] [address] [address] Yovanny Alcantara Basophils/100 WBC (Bld) 0.7 % Normal 0.2-2.0 [facility] Comment on above: Performed By: #### C BC #### [facility] [address] [place] [address] Dr. Yovanny Alcantara EO # 0.2 103/ul Normal 0.0-0.[address] [facility] Comment on above: Performed By: #### C BC #### [facility] [address] [place] [address] Dr. Yovanny Alcantara Eosinophils/100 WBC (Bld) 1.3 % Normal 0.9-7.[address] [facility] Comment on above: Performed By: #### C BC #### [facility] [address] [place] [address] Dr. Yovanny Alcantara Erythrocyte distribution width (RBC) [Ratio] 13.9 % Normal 11.0-15.[address] [facility] Comment on above: Performed By: #### C BC #### [facility] [address] [place] [address] Dr. Yovanny Alcantara Hematocrit (Bld) [Volume fraction] 43.7 % Normal 36.0-48.[address] [facility] Comment on above: Performed By: #### C BC #### [facility] [address] [place] [address] Dr. Yovanny Alcantara Hemoglobin (Bld) [Mass/Vol] 13.8 g/dL Normal 12.0-16.[address] [facility] Comment on above: Performed By: #### C BC #### [facility] [address] [place] [address] Dr. Yovanny Alcantara IG # 0.11 10e3/ul Critically high 0.00-0.03 [facility] Comment on above: Performed By: #### C BC #### [facility] [address] [place] [address] Dr. Yovanny Alcantara IG % 0.8 % Critically high 0.0-0.5 [facility] Comment on above: Performed By: #### C BC #### [facility] [address] [place] [address] Dr. Yovanny Alcantara LYMPH # 3.7 103/ul Normal 1.2-3.[address] [facility] Comment on above: Performed By: #### C BC #### [facility] [address] [place] [address] Dr. Yovanny Alcantara Lymphocytes/100 WBC (Bld) 27.0 % Normal 20.5-60.[address] [facility] Comment on above: Performed By: #### C BC #### [facility] [address] [place] [address] Dr. Yovanny Alcantara MANUAL DIFF REQ NO Normal [facility] Comment on above: Performed By: #### C BC #### [facility] [address] [place] [address] Dr. Yovanny Alcantara MCH (RBC) [Entitic mass] 26.7 pg Normal 26.7-34.[address] [facility] Comment on above: Performed By: #### C BC #### [facility] [address] [place] [address] Dr. Yovanny Alcantara MCHC (RBC) [Mass/Vol] 31.6 g/dL Normal 29.9-35.[address] [facility] Comment on above: Performed By: #### C BC #### [facility] [address] [place] [address] Dr. Yovanny Alcantara MCV (RBC) [Entitic vol] 84.5 fL Normal 81.0-99.0 [facility] Comment on above: Performed By: #### C BC #### [facility] [address] [place] [address] Dr. Yovanny Alcantara MONO # 0.9 103/ul Critically high 0.3-0.8 [facility] Comment on above: Performed By: #### C BC #### [facility] [address] [place] [address] Dr. Yovanny Alcantara Monocytes/100 WBC (Bld) 6.5 % Normal 1.7-12.0 [facility] Comment on above: Performed By: #### C BC #### [facility] [address] [place] [address] Dr. Yovanny Alcantara NEUT # 8.8 103/ul Critically high 1.4-6.5 [facility] Comment on above: Performed By: #### C BC #### [facility] [address] [place] [address] Dr. Yovanny Alcantara Neutrophils/100 WBC (Bld) 63.7 % Normal 43.0-75.[address] [facility] Comment on above: Performed By: #### C BC #### [facility] [address] [place] [address] Dr. Yovanny Alcantara Platelet mean volume (Bld) [Entitic vol] 8.3 fL Critically low 9.5-13.5 [facility] Comment on above: Performed By: #### C BC #### [facility] [address] [place] [address] Dr. Yovanny Alcantara PLT 364 103/ul Normal 150-450 [facility] Comment on above: Performed By: #### C BC #### [facility] [address] [place] [address] Dr. Yovanny Alcantara RBC 5.17 106/ul Normal 4.20-5.40 [facility] Comment on above: Performed By: #### C BC #### [facility] [address] [place], [place] [id number] Dr. Yovanny Alcantara WBC 13.8 103/ul Critically high 4.0-11.0 [facility] Comment on above: Performed By: #### C BC #### [facility] [address] [place], [place] [id number] Dr. Yovanny Alcantara CTA CHEST WO W [...] AMINA WU Date: 2021-12-29 01:20 Normal [facility] D-DIMERon 12-29-2021 D-DIMER 0.68 mg/L FEU Critically high <=0.59 [facility] Comment on above: Performed By: #### P TT, PT, DDIM ####[facility] [id number] [id number]. Yovanny Alcantara D-DIMER COMMENTS SEE BELOW Normal [facility] Comment on above: Result Comment: Incr [...] Performed By: #### P TT, PT, DDIM ####[facility] [address] [place], [place] [address]Dr. Yovanny Alcantara ER URINE PROFILEon 2 Bilirubin Ql (U) Negative Normal NEGATIVE [facility] Comment on above: Performed By: #### E RUR #### [facility] [address] [place], [place] [address] Dr. Yovanny Alcantara Clarity (U) CLEAR Normal CLEAR [facility] Comment on above: Performed By: #### E RUR #### [facility] [address] [place] [address] Dr. Yovanny Alacntara Color (U) YELLOW Normal YELLOW [facility] Comment on above: Performed By: #### E RUR #### [facility] [address] [place] [address] Dr. Yovanny LONG A micrscopic examination will be performed if indicated. Normal [facility] Comment on above: Performed By: #### E RUR #### [facility] [address] [place] [address] Dr. Yovanny Alcantara Glucose Ql (U) Negative Normal NEGATIVE [facility] Comment on above: Performed By: #### E RUR #### [facility] [address] [place] [address] Dr. Yovanny Alcantara Hemoglobin Ql (U) Negative Normal NEGATIVE [facility] Comment on above: Performed By: #### E RUR #### [facility] [address] [place] [address] Dr. Yovanny Alcantara Ketones Ql (U) Negative Normal NEGATIVE [facility] Comment on above: Performed By: #### E RUR #### [facility] [address] [place] [address] Dr. Yovanny Alcantara LEUKOCYTES Negative Normal NEGATIVE [facility] Comment on above: Performed By: #### E RUR #### [facility] [address] [place] [address] Dr. Yovanny Alcantara Nitrite Ql (U) Negative Normal NEGATIVE [facility] Comment on above: Performed By: #### E RUR #### [facility] [address] [place] [address] Dr. Yovanny Alcantara pH (U) 6.5 [pH] Normal 5-[address] [facility] Comment on above: Performed By: #### E RUR #### [facility] [address] [place] [address] Dr. Yovanny Alcantara SPEC GRAVITY 1.020 Normal 1.005-<=1.[address] [facility] Comment on above: Performed By: #### E RUR #### [facility] [address] [place] [address] Dr. Yovanny Alcantara UA PROTEIN Negative Normal NEGATIVE/ TRACE [facility] Comment on above: Performed By: #### E RUR #### [facility] [address] [address] [address] Yovanny Alcantara UR MICRO IND NOT INDICATED Normal [facility] Comment on above: Performed By: #### E RUR #### [facility] [address] [address] [address] Yovanny Alcantara Urobilinogen Qn (U) 0.2 {Eunice'U}/dL Normal 0.2 - 1. [address] [facility] Comment on above: Performed By: #### E RUR #### [facility] [address] [place] [address] Dr. Yovanny Alcantara PROTIMEon 12-29-2021 INR Coag (PPP) [Relative time] 0.94 {INR} Normal [facility] Comment on above: Performed By: #### P TT, PT, DDIM ####[facility] [address] [place], [place] [address]Dr. Yovanny Alcantara INR GUIDELINES SEE BELOW Normal [facility] Comment on above: Result Comment: JENNIFER RED INR: 2.0 - 3.0 CONDITIONS NOT LISTED BELOW 2.5 - 3.5 FOR PROSTHETIC HEART VALVE REPLACEMENT 2.5 - 3.5 RECURRENT THROMBOSIS Performed By: #### P TT, PT, DDIM ####[facility] [address] [place], [place] [address]Dr. Yovanny Alcantara PT Coag (PPP) [Time] 10.2 s Normal 9.0-11.[address] [facility] Comment on above: Performed By: #### P TT, PT, DDIM ####[facility] [address] [address]Dr. Yovanny Alcantara PTTon 12-29-2021 aPTT Coag (Bld) [Time] 28.2 s Normal 22.3-36.2 [facility] Comment on above: Performed By: #### P TT, PT, DDIM ####[facility] [address] [place], [place] [address]DrJessica Alcantara XR LSPINE 2_3 VIEWSon 2021 XR LSPINE [...] by: ASHLEY CARRANZA Date: 2021-09-28 07:[address] [facility] US PELVIS AND TRANSVAGon US PELVIS [...] by: BRIAN SINGER Date: 2021-08-20 09:[address] [facility] Vital Signs Date Time Vital Sign Value Performing Clinician Facility 01-15-2025 09:08-0400 Body height 154.94 cm Shahana Lico Larson DO Work Phone: [facility] 01-15-2025 09:08-0400 Body mass index (BMI) [Ratio] 26.8 kg/m2 Shahana Barfield Neo DO Work Phone: [facility] 01-15-2025 09:08-0400 Body temperature 99.1 [degF] Shahana Lico Larson DO Work Phone: [facility] 01-15-2025 09:08-0400 Body weight 64.46 kg GJessica Larson DO Work Phone: [facility] 01-15-2025 09:08-0400 Diastolic blood pressure 68 mm[Hg] Shahana Larson DO Work Phone: [facility] 01-15-2025 09:08-0400 Heart rate 92 /min GJessica Larson DO Work Phone: [facility] 01-15-2025 09:08-0400 Respiratory rate 19 /min GJessica Larson DO Work Phone: [facility] 01-15-2025 09:08-0400 SaO2% (BldA) [Mass fraction] 99 % Shahana Larson DO Work Phone: [facility] 01-15-2025 09:08-0400 Systolic blood pressure 105 mm[Hg] Shahana Larson DO Work Phone: [facility] 12-07-2024 08:22-0400 Body height 157.5 cm Joseph Sotelo MD Work Phone: [facility] 12-07-2024 08:22-0400 Body mass index (BMI) [Ratio] 27.62 kg/m2 Josehp Sotelo MD Work Phone: [facility] 12-07-2024 08:22-0400 Body temperature 97.3 [degF] Joseph Sotelo MD Work Phone: [facility] 12-07-2024 08:22-0400 Body weight 68.49 kg Joseph Sotelo MD Work Phone: [facility] 12-07-2024 08:22-0400 Diastolic blood pressure 66 mm[Hg] Joseph Sotelo MD Work Phone: [facility] 12-07-2024 08:22-0400 Heart rate 89 /min Joseph Sotelo MD Work Phone: [facility] 12-07-2024 08:22-0400 Respiratory rate 22 /min Joseph Sotelo MD Work Phone: [facility] 12-07-2024 08:22-0400 SaO2% (BldA) [Mass fraction] 99 % Joseph Sotelo MD Work Phone: [facility] 12-07-2024 08:22-0400 Systolic blood pressure 122 mm[Hg] Joseph Sotelo MD Work Phone: [facility] 09-06-2024 15:40-0400 Body height 157.5 cm Joseph Sotelo MD Work Phone: [facility] 09-06-2024 15:40-0400 Body mass index (BMI) [Ratio] 29.08 kg/m2 Joseph Sotelo MD Work Phone: [facility] 09-06-2024 15:40-0400 Body temperature 97.5 [degF] Joseph Sotelo MD Work Phone: [facility] 09-06-2024 15:40-0400 Body weight 72.12 kg Joseph Sotelo MD Work Phone: [facility] 09-06-2024 15:40-0400 Diastolic blood pressure 76 mm[Hg] Joseph Sotelo MD Work Phone: [facility] 09-06-2024 15:40-0400 Heart rate 84 /min Joseph Sotelo MD Work Phone: [facility] 09-06-2024 15:40-0400 Respiratory rate 20 /min Joseph Sotelo MD Work Phone: [facility] 09-06-2024 15:40-0400 SaO2% (BldA) [Mass fraction] 99 % Joseph Sotelo MD Work Phone: [facility] 09-06-2024 15:40-0400 Systolic blood pressure 128 mm[Hg] Joseph Sotelo MD Work Phone: [facility] 08-03-2024 13:28-0400 Body height 157.5 cm Ruthy Strauss MD Work Phone: [facility] 08-03-2024 13:28-0400 Body mass index (BMI) [Ratio] 28.72 kg/m2 Ruthy Strauss MD Work Phone: [facility] 08-03-2024 13:28-0400 Body weight 71.22 kg Ruthy Strauss MD Work Phone: [facility] 08-03-2024 13:28-0400 Diastolic blood pressure 86 mm[Hg] Ruthy Strauss MD Work Phone: [facility] 08-03-2024 13:28-0400 Heart rate 82 /min Ruthy Strauss MD Work Phone: [facility] 08-03-2024 13:28-0400 Respiratory rate 18 /min Ruthy Strauss MD Work Phone: [facility] 08-03-2024 13:28-0400 SaO2% (BldA) [Mass fraction] 96 % Ruthy Strauss MD Work Phone: [facility] 08-03-2024 13:28-0400 Systolic blood pressure 120 mm[Hg] Ruthy Strauss MD Work Phone: [facility] 07-04-2024 15:25-0500 Body mass index (BMI) [Ratio] 28.72 kg/m2 Compa Nicolas DO Work Phone: [facility] 07-04-2024 15:25-0500 Body weight 71.22 kg Compa Nicolas DO Work Phone: [facility] 07-04-2024 15:25-0500 Diastolic blood pressure 64 mm[Hg] Compa Nicolas DO Work Phone: [facility] 07-04-2024 15:25-0500 Systolic blood pressure 112 mm[Hg] Compa Nicolas DO Work Phone: [facility] 06-10-2024 11:13-0500 Body height 157.5 cm Joseph Sotelo MD Work Phone: [facility] 06-10-2024 11:13-0500 Body mass index (BMI) [Ratio] 28.53 kg/m2 Joseph Sotelo MD Work Phone: [facility] 06-10-2024 11:13-0500 Body temperature 97.3 [degF] Joseph Sotelo MD Work Phone: [facility] 06-10-2024 11:13-0500 Body weight 70.76 kg Joseph Sotelo MD Work Phone: [facility] 06-10-2024 11:13-0500 Diastolic blood pressure 66 mm[Hg] Joseph Sotelo MD Work Phone: [facility] 06-10-2024 11:13-0500 Heart rate 90 /min Joseph Sotelo MD Work Phone: [facility] 06-10-2024 11:13-0500 Respiratory rate 20 /min Joseph Sotelo MD Work Phone: [facility] 06-10-2024 11:13-0500 SaO2% (BldA) [Mass fraction] 99 % Joseph Sotelo MD Work Phone: [facility] 06-10-2024 11:13-0500 Systolic blood pressure 100 mm[Hg] Joseph Sotelo MD Work Phone: [facility] 06-02-2024 08:16-0500 Body mass index (BMI) [Ratio] 28.5 kg/m2 Compa Nicolas DO Work Phone: [facility] 06-02-2024 08:16-0500 Body weight 70.67 kg Compa Nicolas DO Work Phone: [facility] 06-02-2024 08:16-0500 Diastolic blood pressure 72 mm[Hg] Compa Nicolas DO Work Phone: [facility] 06-02-2024 08:16-0500 Systolic blood pressure 106 mm[Hg] Compa Nicolas DO Work Phone: [facility] 05-31-2024 13:20-0500 Body height 157.5 cm Joseph Sotelo MD Work Phone: [facility] 05-31-2024 13:20-0500 Body mass index (BMI) [Ratio] 28.35 kg/m2 Joseph Sotelo MD Work Phone: [facility] 05-31-2024 13:20-0500 Body temperature 97.5 [degF] Joseph Sotelo MD Work Phone: [facility] 05-31-2024 13:20-0500 Body weight 70.31 kg Joseph Sotelo MD Work Phone: [facility] 05-31-2024 13:20-0500 Diastolic blood pressure 62 mm[Hg] Joseph Sotelo MD Work Phone: [facility] 05-31-2024 13:20-0500 Heart rate 106 /min Joseph Sotelo MD Work Phone: [facility] 05-31-2024 13:20-0500 Respiratory rate 22 /min Joseph Sotelo MD Work Phone: [facility] 05-31-2024 13:20-0500 SaO2% (BldA) [Mass fraction] 97 % Joseph Sotelo MD Work Phone: [facility] 05-31-2024 13:20-0500 Systolic blood pressure 114 mm[Hg] Joseph Sotelo MD Work Phone: [facility] 12-23-2023 14:16-0400 Blood Pressure Location [facility]ES[facility] 12-23-2023 14:16-0400 Diastolic blood pressure 104 mm[Hg] Bryant IGLESIAS [facility] 12-23-2023 14:16-0400 Heart rate 84 /min Bryant IGLESIAS [facility] 12-23-2023 14:16-0400 Respiratory rate 16 /min Bryant IGLESIAS [facility] 12-23-2023 14:16-0400 Systolic blood pressure 144 mm[Hg] Bryant IGLESIAS [facility] 06-11-2023 15:12-0500 Body height 157.5 cm Joseph Sotelo MD Work Phone: [facility] 06-11-2023 15:12-0500 Body mass index (BMI) [Ratio] 28.53 kg/m2 Joseph Sotelo MD Work Phone: [facility] 06-11-2023 15:12-0500 Body temperature 97.81 [degF] Joseph Sotelo MD Work Phone: [facility] 06-11-2023 15:12-0500 Body weight 70.76 kg Joseph Sotelo MD Work Phone: [facility] 06-11-2023 15:12-0500 Diastolic blood pressure 60 mm[Hg] Joseph Sotelo MD Work Phone: [facility] 06-11-2023 15:12-0500 Heart rate 101 /min Joseph Sotelo MD Work Phone: [facility] 06-11-2023 15:12-0500 SaO2% (BldA) [Mass fraction] 99 % Joseph Sotelo MD Work Phone: [facility] 06-11-2023 15:12-0500 Systolic blood pressure 100 mm[Hg] Joseph Sotelo MD Work Phone: [facility] 03-24-2023 10:40-0500 Body height 154.1 cm Vu Juarez MD MPH Work Phone: [facility] 03-24-2023 10:40-0500 Body mass index (BMI) [Ratio] 31.92 kg/m2 Vu Juarez MD MPH Work Phone: [facility] 03-24-2023 10:40-0500 Body temperature 97.3 [degF] Vu Juarez MD MPH Work Phone: [facility] 03-24-2023 10:40-0500 Body weight 75.8 kg Vu Juarez MD MPH Work Phone: [facility] 03-24-2023 10:40-0500 Diastolic blood pressure 107 mm[Hg] Vu Juarez MD MPH Work Phone: [facility] 03-24-2023 10:40-0500 Heart rate 85 /min Vu Juarez MD MPH Work Phone: [facility] 03-24-2023 10:40-0500 Respiratory rate 16 /min Vu Juarez MD MPH Work Phone: [facility] 03-24-2023 10:40-0500 SaO2% (BldA) [Mass fraction] 98 % Vu Juarez MD MPH Work Phone: [facility] 03-24-2023 10:40-0500 Systolic blood pressure 148 mm[Hg] Vu Juarez MD MPH Work Phone: [facility] 09-05-2022 10:45-0400 Body height 155.57 cm Hilary Staton Other [employer] Other 09-05-2022 10:45-0400 Body mass index (BMI) [Ratio] 33.73 kg/m2 Hilary Staton Other [employer] Other 09-05-2022 10:45-0400 Body temperature 97.3 [degF] Hilary Staton Other [employer] Other 09-05-2022 10:45-0400 Body weight 81.65 kg Hilary Staton Other [employer] Other 09-05-2022 10:45-0400 Diastolic blood pressure 98 mm[Hg] Hilary Staton Other [employer] Other 09-05-2022 10:45-0400 Respiratory rate 18 /min Hilary Shemar Other [employer] Other 09-05-2022 10:45-0400 SaO2% (BldA) [Mass fraction] 99 % Hilary Staton Other [employer] Other 09-05-2022 10:45-0400 Systolic blood pressure 139 mm[Hg] Hilary Staton Other [employer] Other 07-04-2014 13:22-0500 Blood Pressure Location Bryant IGLESIAS [facility] 07-04-2014 13:22-0500 Body temperature 97.7 [degF] Bryant IGLESIAS [facility] 07-04-2014 13:22-0500 Diastolic blood pressure 79 mm[Hg] Bryant IGLESIAS [facility] 07-04-2014 13:22-0500 Heart rate 96 /min Bryant IGLESIAS [facility] 07-04-2014 13:22-0500 Mean blood pressure 90 mm[Hg] Bryant IGLESIAS [facility] 07-04-2014 13:22-0500 Respiratory rate 16 /min Bryant IGLESIAS [facility] 07-04-2014 13:22-0500 SaO2% (BldA) [Mass fraction] 97 % Bryant Dnevnik [facility] 07-04-2014 13:22-0500 Systolic blood pressure 111 mm[Hg] Bryant IGLESIAS [facility] Encounters Encounter Date Encounter Type Care Provider Facility Start: 01-15-2025 End: 01-15-2025 ambulatory Shahana Larson DO Work Phone: [facility] Work Phone: Start: 01-15-2025 End: 01-15-2025 Patient encounter procedure Sophia Ureña [facility] Work Phone: Start: 12-07-2024 End: 12-07-2024 Telephone encounter Joseph Sotelo MD Work Phone: [facility] Start: 12-07-2024 End: 12-07-2024 Office outpatient visit 25 minutes Joseph Sotelo MD Work Phone: [facility] Comment on above: Benign essential hyp ertension (Primary Dx); Major depressive disorder, recurrent episode, mild ; Generalized anxiety disorder ; ADD (attention deficit disorder) without hyperactivity; Metabolic syndrome; Nausea Start: 12-07-2024 End: 12-07-2024 ambulatory JOSEPH SOTELO Not Available Start: 09-06-2024 End: 09-06-2024 ambulatory JOSEPH SOTELO Not Available Start: 09-06-2024 End: 09-06-2024 Office outpatient visit 25 minutes Joseph Sotelo MD Work Phone: [facility] Comment on above: Benign essential hyp ertension (CMS/HCC) (Primary Dx); Chronic fatigue; Low serum cortisol level; Major depressive disorder, recurrent episode, mild (HCC) (CMS/HCC); Metabolic syndrome Start: 09-06-2024 End: 09-06-2024 Bamboo flowsheet Joseph Sotelo MD Work Phone: [facility] Start: 09-06-2024 End: 09-06-2024 Golden flowsheet Joseph Sotelo MD Work Phone: [facility] Start: 08-18-2024 End: 08-18-2024 ambulatory Shahana Larson Facility:[facility] Start: 08-03-2024 End: 08-03-2024 Bamboo flowsheet Ruthy Strauss MD Work Phone: [facility] Start: 08-03-2024 End: 08-03-2024 Bamboo flowsheet Ruthy Strauss MD Work Phone: [facility] Start: 08-03-2024 End: 08-03-2024 Office outpatient new 45 minutes Ruthy Strauss MD Work Phone: [facility] Comment on above: Low serum cortisol l evel (Primary Dx); Chronic fatigue; Primary hypertension (CMS/HCC); H/O of hysterectomy with bilateral oophorectomy; Abnormal thyroid function test Start: 08-03-2024 End: 08-03-2024 ambulatory RUTHY STRAUSS Not Available Start: 07-08-2024 End: 07-08-2024 ambulatory JOSEPH SOTELO Facility:[facility] Start: 07-04-2024 End: 07-04-2024 Patient encounter procedure Compa Nicolas DO Work Phone: [facility] Start: 07-04-2024 End: 07-04-2024 Periodic preventive med est patient 18-39 yrs Compa Nicolas DO Work Phone: [facility] Comment on above: Well woman exam with routine gynecological exam; H/O: hysterectomy; Breast lump on left side at 2 o'clock position; Encounter for screening mammogram for malignant neoplasm of breast Start: 07-04-2024 End: 07-04-2024 ambulatory COMPA NICOLAS Not Available Start: 07-04-2024 End: 07-04-2024 Bamboo flowsheet Compa Nicolas DO Work Phone: [facility] Start: 07-04-2024 End: 07-04-2024 Bamboo flowsheet Compa Nicolas DO Work Phone: [facility] Start: 2024 End: 2024 External Result Encounter Joseph Sotelo MD Work Phone: [facility] Unsolicited Start: 2024 End: 2024 External Result Encounter Joseph Sotelo MD Work Phone: [facility] Unsolicited Start: 2024 End: 2024 ambulatory JOSEPH SOTELO [facility] Start: 06-10-2024 End: 06-10-2024 Bamboo flowsheet Joseph [...] Major depressive disorder, recurrent episode, mild (HCC) ([facility]/HCC) Start: 06-10-2024 End: 06-10-2024 ambulatory JOSEPH SOTELO [...] External Department Unsolicited Start: 01-06-2024 End: 01-07-2024 [facility] Start: 12-24-2023 End: 12-24-2023 Clinisync Result Encounter Generic External Data Provider [facility] External Department Unsolicited Start: 12-24-2023 End: 12-24-2023 Clinisync Result Encounter Generic External Data Provider [facility] External Department Unsolicited Start: 12-23-2023 End: 12-24-2023 ambulatory Bryant IGLESIAS Facility:[id number] Start: 12-23-2023 End: 12-23-2023 Patient encounter procedure Bryant IGLESIAS [facility] Start: 12-22-2023 ambulatory Bryant IGLESIAS Facility :[facility] [place] Start: 12-21-2023 End: 12-24-2023 Clinisync Result Encounter Generic External Data Provider [facility] External Department Unsolicited Start: 12-21-2023 End: 12-24-2023 Clinisync Result Encounter Generic External Data Provider [facility] External Department Unsolicited Start: 09-25-2023 End: 09-25-2023 ambulatory [facility] Start: 08-05-2023 End: 08-05-2023 ambulatory [facility] Start: 07-30-2023 End: 07-30-2023 ambulatory [facility] Start: 07-22-2023 End: 07-22-2023 ambulatory [facility] Start: 07-07-2023 End: 07-07-2023 Evaluation and management of inpatient [facility] Start: 07-06-2023 End: 07-07-2023 Evaluation and management of inpatient [facility] Start: 06-29-2023 End: 06-29-2023 ambulatory [place] Start: 06-26-2023 End: 06-26-2023 ambulatory [facility] Start: 06-26-2023 Encounter for other preprocedural examination [facility] Start: 06-17-2023 End: 06-17-2023 ambulatory [facility] Start: 06-11-2023 End: 06-11-2023 Office outpatient visit 25 minutes Joseph Sotelo MD Work Phone: [facility] Comment on above: Benign essential hyp ertension (CMS/HCC) (Primary Dx); Sinus tachycardia; 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 Start: 06-11-2023 Bamboo flowsheet Joseph Sotelo MD Work Phone: [facility] Start: 06-11-2023 Bamboo flowsheet Joseph Sotelo MD Work Phone: [facility] Start: 06-03-2023 End: 06-03-2023 ambulatory [facility] Start: 05-22-2023 ambulatory [facility] Start: 04-08-2023 End: 04-08-2023 Office outpatient new 45 minutes Jeremy Jang MD Work Phone: [facility] Comment on above: Endometrioma Start: 03-24-2023 End: 03-24-2023 ambulatory VU JUAREZ [facility] Start: 03-24-2023 End: 03-24-2023 Office outpatient new 60 minutes Vu Juarez MD MPH Work Phone: [facility] Comment on above: Endometrioma (Primar y Dx) Start: 09-05-2022 End: 09-05-2022 ambulatory Hilary Staton Other [place] [employer] Other Start: 09-05-2022 Office outpatient ne w 20 minutes Hilary Staton [facility] Start: 08-05-2022 End: 08-06-2022 ambulatory DE LEON H TOMI Facility:[facility] Start: 06-16-2022 End: 06-16-2022 ambulatory AYDIN CAMACHO Facility:[facility] Start: 12-30-2021 End: 12-31-[address] JOSEPH SOTELO Facility:[facility] Start: 12-28-2021 End: 12-29-[address] JOSEPH SOTELO Facility:[facility] Start: 09-27-2021 End: 09-28-[address] JOSEPH SOTELO Facility:[facility] Start: 08-20-2021 End: 08-21-[address] JOSEPH SOTELO Facility:[facility] Procedures Date Procedure Procedure Detail Performing Clinician Start: 01-15-2025 Quick Strep (POC) Shahana Larson DO Work Phone: Start: 2024 C-reactive protein Joseph Sotelo MD [...] Comment on above: x2 Endometrial ablation Bryant IGLSEIAS Esophagogastroduodenoscopy P soledad IGLESIAS H/O: hysterectomy H/O: hysterectomy Compa Nicolas DO Work Phone: H/O: hysterectomy H/O of hystere ctomy with bilateral oophorectomy Ruthy Strauss MD Work Phone: Hysterectomy Bryant IGLESIAS Ligation of fallopian tube P soledad IGLESIAS Comment on above: essure procedure Plan of Treatment Date Care Activity Detail Author Start: 2036 Zoster Vaccines (1 of 2) Zoster Vaccines (1 of 2) [facility] Start: 07-28-2027 DTaP/Tdap/Td Vaccines (6 - Td or Tdap) DTaP/Tdap/Td Vaccines (6 - Td or Tdap) [facility] Start: 07-11-2025 End: 07-11-2025 Patient encounter procedure [facility] Start: 03-08-2025 End: 03-08-2025 Patient encounter procedure 03/08/2025 7:30 AM EST Office Visit [facility] [address] [place] [address] Joseph Sotelo MD [address] [place] [phone] [facility] Start: 02-01-2025 End: 02-01-2025 Patient encounter procedure [facility] Start: 01-02-2025 Influenza vaccination Influenza Vaccine (#1) [facility] Start: 12-07-2024 End: 12-07-2024 Patient encounter procedure 12/07/2024 8:15 AM EDT Office Visit [facility] [address] [place] [address] Joseph Sotelo MD [address] [place] [phone] [facility] Start: 09-06-2024 End: 09-06-2024 Patient encounter procedure 09/06/2024 3:30 PM EDT Office Visit [facility] [address] [place] [phone] Joseph Sotelo MD [address] [place] [phone] [facility] Start: 08-03-2024 End: 08-03-2025 ACTH stimulation, 3 time points ACTH stimulation, 3 time points Lab Routine Low serum cortisol level Expected: 08/03/2024 (Approximate), Expires: 08/03/2025 [facility] Work Phone: Comment on above: Expected: 08/03/2024 (Approximate), Expi res: 08/03/2025 Start: 08-03-2024 End: 08-03-2024 Patient encounter procedure [facility] Comment on above: Chronic fatigue; Low serum cortisol level Start: 07-07-2024 End: 07-07-2024 Patient encounter procedure 07/07/2024 1:15 PM EST Office Visit [facility] [address] [place] [phone] Joseph Sotelo MD [address] [place] [phone] [facility] Start: 07-04-2024 End: 07-04-2024 Patient encounter procedure [facility] Comment on above: Arrived Start: 07-04-2024 End: 09-03-2025 MG Breast - bilateral Diagnostic Bilateral diagnostic mammogram Imaging Routine Breast lump on left side at 2 o'clock position Expected: 07/04/2024 (Approximate), Expires: 09/03/2025 [facility] Comment on above: Expected: 07/04/2024 (Approximate), Expi res: 09/03/2025 Start: 06-10-2024 End: 06-10-2025 ACTH ACTH Lab Routine Low serum cortisol level Expected: 06/10/2024 (Approximate), Expires: 06/10/2025 [facility] Comment on above: Expected: 06/10/2024 (Approximate), Expi res: 06/10/2025 Start: 06-10-2024 End: 06-10-2025 Aldosterone Aldosterone Lab Routine Low serum cortisol level Expected: 06/10/2024 (Approximate), Expires: 06/10/2025 [facility] Comment on above: Expected: 06/10/2024 (Approximate), Expi res: 06/10/2025 Start: 06-10-2024 End: 06-10-2025 C reactive protein [Mass/volume] in Serum or Plasma C-reactive protein Lab Routine Arthralgia, unspecified joint Expected: 06/10/2024 (Approximate), Expires: 06/10/2025 [facility] Comment on above: Expected: 06/10/2024 (Approximate), Expi res: 06/10/2025 Start: 06-10-2024 End: 06-10-2025 Cortisol Cortisol Lab Routine Chronic fatigue Low serum cortisol level Expected: 06/10/2024 (Approximate), Expires: 06/10/2025 [facility] Comment on above: Expected: 06/10/2024 (Approximate), Expi res: 06/10/2025 Start: 06-10-2024 End: 06-10-2025 Erythrocyte sedimentation rate Sedimentation rate, automated Lab Routine Arthralgia, unspecified joint Expected: 06/10/2024 (Approximate), Expires: 06/10/2025 [facility] Work Phone: Comment on above: Expected: 06/10/2024 (Approximate), Expi res: 06/10/2025 Start: 06-10-2024 End: 06-10-2025 Nuclear Ab [Titer] in Serum by Immunofluorescence JASON Lab Routine Arthralgia, unspecified joint Expected: 06/10/2024 (Approximate), Expires: 06/10/2025 [facility] Comment on above: Expected: 06/10/2024 (Approximate), Expi res: 06/10/2025 Start: 06-10-2024 End: 06-10-2025 Rheumatoid factor [Units/volume] in Serum or Plasma Rheumatoid factor Lab Routine Arthralgia, unspecified joint Expected: 06/10/2024 (Approximate), Expires: 06/10/2025 [facility] Comment on above: Expected: 06/10/2024 (Approximate), Expi res: 06/10/2025 Start: 06-10-2024 End: 06-10-2024 Patient encounter procedure 06/10/2024 11:15 AM EST Office Visit [facility] [address] [place] [address] Joseph Sotelo MD [address] [place] [address] Arrived [facility] Comment on above: Arrived Start: 06-02-2024 End: 06-02-2025 C-peptide C-peptide Lab Routine Hair loss Hormone disorder Mood changes Expected: 06/02/2024 (Approximate), Expires: 06/02/2025 [facility] Comment on above: Expected: 06/02/2024 (Approximate), Expi res: 06/02/2025 Start: 06-02-2024 End: 06-02-2025 Cortisol free Cortisol, free Lab Routine Hair loss Hormone disorder Mood changes Expected: 06/02/2024 (Approximate), Expires: 06/02/2025 [facility] Comment on above: Expected: 06/02/2024 (Approximate), Expi res: 06/02/2025 Start: 06-02-2024 End: 06-02-2025 Glucose [Mass/volume] in Serum or Plasma Glucose, random Lab Routine Hair loss Hormone disorder Mood changes Expected: 06/02/2024 (Approximate), Expires: 06/02/2025 [facility] Comment on above: Expected: 06/02/2024 (Approximate), Expi res: 06/02/2025 Start: 06-02-2024 End: 06-02-2025 Insulin, total Insulin, total Lab Routine Hair loss Hormone disorder Mood changes Expected: 06/02/2024 (Approximate), Expires: 06/02/2025 [facility] Comment on above: Expected: 06/02/2024 (Approximate), Expi res: 06/02/2025 Start: 06-02-2024 End: 06-02-2025 Serotonin serum Serotonin serum Lab Routine Hair loss Hormone disorder Mood changes Expected: 06/02/2024 (Approximate), Expires: 06/02/2025 [facility] Comment on above: Expected: 06/02/2024 (Approximate), Expi res: 06/02/2025 Start: 06-02-2024 End: 06-02-2025 Thyroglobulin Thyroglobulin Lab Routine Hair loss Hormone disorder Mood changes Expected: 06/02/2024 (Approximate), Expires: 06/02/2025 [facility] Comment on above: Expected: 06/02/2024 (Approximate), Expi res: 06/02/2025 Start: 06-02-2024 End: 06-02-2025 Thyroglobulin Antibody Thyroglobulin Antibody Lab Routine Hair loss Hormone disorder Mood changes Expected: 06/02/2024 (Approximate), Expires: 06/02/2025 [facility] Comment on above: Expected: 06/02/2024 (Approximate), Expi res: 06/02/2025 Start: 06-02-2024 End: 06-02-2025 Thyrotropin [Units/volume] in Serum or Plasma [facility] Comment on above: Ordered: 06/02/2024 Expected: 06/02/2024 (Approximate), Expires: 06/02/2025 Start: 06-02-2024 End: 06-02-2024 Patient encounter procedure 06/02/2024 8:20 AM EST Office Visit [facility] [address] [address] Compa Valenzuela, [address] [place] [address] Arrived [facility] Comment on above: Arrived Start: 05-31-2024 End: 05-31-2024 Patient encounter procedure 05/31/2024 1:15 PM EST Office Visit [facility] [address] [place] [address] Joseph Sotelo MD [address] [place] [phone] Arrived [facility] Comment on above: Arrived Start: 01-03-2024 Influenza vaccination Influenza Vaccine (#1) [facility] Start: 08-10-2023 End: 08-10-2023 Patient encounter procedure 08/10/2023 2:45 PM EDT Office Visit [facility] [address] [place] [address] Joseph Sotelo MD [address] [place] [phone] [facility] Start: 06-11-2023 End: 06-11-2023 Patient encounter procedure 06/11/2023 3:15 PM EST Office Visit [facility] [address] [place] [phone] Joseph Sotelo MD [address] [place] [phone] Arrived [facility] Comment on above: Arrived Start: 01-02-2023 Influenza vaccination Influenza Vaccine (#1) [facility] Start: 04-26-2021 COVID-19 Vaccine (4 - Moderna series) COVID-19 Vaccine (4 - Moderna series) [facility] Start: 12-24-2017 Varicella vaccination Varicella Vaccines (2 of 2 - 13+ 2-dose series) [facility] Start: 2007 Screening for malignant neoplasm of cervix [facility] Start: 2004 Diabetes mellitus screening Diabetes Screening [facility] Start: 2004 Hepatitis C screening Hepatitis C Screening [facility] Start: 1986 HIV screening HIV Screening [facility] Start: 1986 Lipid panel Lipid Panel [facility] Start: 1986 Yearly Adult Physical Yearly Adult Physical [facility] Cytology Cervical or vaginal smear or scraping study Pap Smear Pathology and Cytology Routine Well woman exam with routine gynecological exam Ordered: 07/04/2024 [facility] Work Phone: Comment on above: Ordered: 07/04/2024 DHEA-sulfate DHEA-sulfate Lab Routine Hair loss Hormone disorder Mood changes Ordered: 06/02/2024 [facility] Comment on above: Ordered: 06/02/2024 Estradiol Estradiol Lab Ro utine Hair loss Hormone disorder Mood changes Ordered: 06/02/2024 [facility] Work Phone: Comment on above: Ordered: 06/02/2024 Estrone Estrone Lab Rout ine Hair loss Hormone disorder Mood changes Ordered: 06/02/2024 [facility] Comment on above: Ordered: 06/02/2024 Ferritin [Mass/volum e] in Serum or Plasma Ferritin Lab Routine Hair loss Hormone disorder Mood changes Ordered: 06/02/2024 [facility] Comment on above: Ordered: 06/02/2024 Hemoglobin A1c/Hemoglobin.total in Blood Hemoglobin A1c Lab Routine Hair loss Hormone disorder Mood changes Ordered: 06/02/2024 [facility] Comment on above: Ordered: 06/02/2024 Human papilloma viru s DNA [Presence] in Unspecified specimen by Probe with amplification HPV DNA probe, amplified Microbiology Routine Well woman exam with routine gynecological exam Ordered: 07/04/2024 [facility] Comment on above: Ordered: 07/04/2024 Progesterone Progesterone Lab Routine Hair loss Hormone disorder Mood changes Ordered: 06/02/2024 [facility] Comment on above: Ordered: 06/02/2024 Sex hormone binding globulin Sex hormone binding globulin Lab Routine Hair loss Hormone disorder Mood changes Ordered: 06/02/2024 [facility] Comment on above: Ordered: 06/02/2024 T3, reverse T3, reverse Lab Routine Hair loss Hormone disorder Mood changes Ordered: 06/02/2024 [facility] Comment on above: Ordered: 06/02/2024 TESTOSTERONE, FREE TESTOSTERONE, FREE Lab Routine Hair loss Hormone disorder Mood changes Ordered: 06/02/2024 [facility] Comment on above: Ordered: 06/02/2024 Testosterone, free, total Testos terone, free, total Lab Routine Hair loss Hormone disorder Mood changes Ordered: 06/02/2024 [facility] Comment on above: Ordered: 06/02/2024 Thyroid peroxidase antibody Thyr oid peroxidase antibody Lab Routine Hair loss Hormone disorder Mood changes Ordered: 06/02/2024 [facility] Comment on above: Ordered: 06/02/2024 Thyroxine (T4) free [Mass/volume] in Serum or Plasma T4, free Lab Routine Hair loss Hormone disorder Mood changes Ordered: 06/02/2024 [facility] Comment on above: Ordered: 06/02/2024 Triiodothyronine (T3 ) Free [Mass/volume] in Serum or Plasma T3, free Lab Routine Hair loss Hormone disorder Mood changes Ordered: 06/02/2024 [facility] Comment on above: Ordered: 06/02/2024 Vitamin D 1,25 dihydroxy Vitamin D 1,25 dihydroxy Lab Routine Hair loss Hormone disorder Mood changes Ordered: 06/02/2024 [facility] Comment on above: Ordered: 06/02/2024 Immunizations Immunization Date Immunization Notes Care Provider [facility] 04-02-2024 influenza virus vaccine, unspecified formulation Joseph Sotelo MD Work Phone: [facility] 02-18-2021 influenza virus vaccine, unspecified formulation Vu Juarez MD MPH Work Phone: [facility] Work Phone: 11-26-2017 varicella virus vaccine Vu Juarez MD MPH Work Phone: [facility] Work Phone: 01-11-2014 influenza, seasonal, injectable, preservative free Hilary Staton Other [facility] Payers Date Payer Category Payer [facility] [id number] 2021 Unknown [id number] 2017 [facility] [id number] 2.16.840.1.167724.19 2014 Unknown [id number] 1986 Unknown [id number] 2.16.840.1.963860.3.579.2.593 1986 Unknown [id number] 2.16.840.1.352724.3.579.2.593 1986 Unknown [id number] 2.16.840.1.676892.3.579.2.593 1986 Unknown [id number] 2.16.840.1.144212.3.579.2.593 1986 Unknown [id number] 2.16.840.1.044120.3.579.2.593 1986 Unknown [id number] 2.16.840.1.344556.3.579.2.1245 1986 Unknown [id number] 2.16.840.1.927311.3.579.2.1286 1986 Unknown [id number] 2.16.840.1.848713.3.579.2.1286 1986 Unknown [id number] 2.16.840.1.265843.3.579.2.1286 1986 Unknown [id number] 2.16.840.1.769094.3.579.2.1286 1986 Unknown [id number] 2.16.840.1.538194.3.579.2.1286 1986 Unknown [id number] 2.16.840.1.498720.3.579.2.1286 1986 Unknown [id number] 2.16.840.1.763866.3.579.2.1286 1986 Unknown [id number] 2.16.840.1.520075.3.579.2.1285 1986 Unknown [id number] 2.16.840.1.465921.3.579.2.1286 1986 Unknown [id number] 2.16.840.1.220819.3.579.2.1285 1986 Unknown [id number] 2.16.840.1.451164.3.579.2.727 1986 Unknown [id number] 2.16.840.1.411116.3.579.2.727 1986 Unknown [id number] 2.16.840.1.342520.3.579.2.727 1986 Unknown [id number] 2.16.840.1.834546.3.579.2.7 1986 Unknown [id number] 2.16.840.1.875737.3.579.2.128 1986 Unknown [id number] 2.16.840.1.866564.3.579.2.1285 1986 Unknown [id number] 2.16.840.1.617336.3.579.2.1285 1986 Unknown [id number] 2.16.840.1.995127.3.579.2.1285 1986 Unknown [id number] 2.16.840.1.146099.3.579.2.128 1986 Unknown [id number] 2.16.840.1.009045.3.579.2.1285 1986 Unknown [id number] 2.16.840.1.165476.3.579.2.9 1986 Unknown [id number] 2.16.840.1.605374.3.579.2.9 1986 Unknown [id number] 2.16.840.1.166311.3.579.2.1259 1986 Unknown [id number] 2.16.840.1.403501.3.579.2.1259 1986 Unknown [id number] 2.16.840.1.149287.3.579.2.1259 1986 Unknown [id number] 2.16.840.1.952100.3.579.2.1259 1986 Unknown [id number] 2.16.840.1.887423.3.579.2.1259 1959 Self-pay 1959 Unknown [id number] Private Health Insurance [facility] [id number] Unknown [id number] 2.16.840.1.992470.3.579.2.593 Unknown [id number] 2.16.840.1.316716.3.579.2.531 Social History Date Type Detail Facility Unknown if ever smoked [facility] Other Start: 04-08-2023 End: 12-07-2024 Sex Assigned At [facility] [facility] Work Phone: Start: 1985 Sex Assigned At Not on file [facility] Work Phone: Start: 03-14-2023 End: 04-08-2023 Exposure to SARS-CoV-2 (event) Not sure [facility] Start: 04-08-2023 End: 01-14-2024 Tobacco smoking status [facility]IS Never smoked tobacco [facility] Start: 10-14-2022 End: 04-08-2023 Tobacco use and exposure Smokeless tobacco non-user [facility] Work Phone: Start: 04-08-2023 Alcohol intake Ex-drinker (finding) [facility] Work Phone: Start: 04-08-2023 End: 12-07-2024 History of Social function [facility] Start: 05-19-2023 End: 12-07-2024 Alcohol intake Lifetime non-drinker (finding) [facility] [...] Caffeine: 1-2 cups/day coffee, tea [facility] Sex Female (finding) [facility] Start: 1985 Sex Assigned At Female [facility] Goals Date Patient Goal Desired Activity /State Personal health goal Functional Status Date Assessment Result Facility 12-07-2024 Total score [AUDIT-C] 1 12/08/19 4:28 AM EDT Mychart, Generic [facility] 12-07-2024 How often to you hav e a drink containing alcohol? Monthly or less 12/07/2024 4:28 AM EDT Mychart, Generic Monthly or less [facility] 12-07-[address] inks containing alcohol do you have on a typical day? 1 or 2 12/07/2024 4:28 AM EDT Mychart, Generic 1 or 2 [facility] 12-07-2024 How often do you hav e 6 or more drinks on 1 occasion? Never 12/07/2024 4:28 AM EDT Donaldo Wolff Never [facility] 12-23-2023 Functional Status N/A [facility] [place] Clinical Notes 09-28-2021 to 12-07-2024 Telephone Encounter - Joseph Sotelo MD - 12/07/2024 3:04 PM EDTTelephone Encounter - Joseph Sotelo MD - 12/07/2024 3:04 PM EDTTelephone Encounter - KATLYN OCHOA - 12/07/2024 12:09 PM EDT Note Date & Type Note Facility 12-07-2024 Telephone encounter Note Sent. [facility] 12-07-2024 Miscellaneous Notes Sent. Patient called [employer] insurance prefers 90 day scripts. Can she get a 90 day for her concerta? clm documented in this encounter [facility] 12-07-2024 Telephone encounter Note Patient called [employer] insurance prefers 90 day scripts. Can she get a 90 day for her concerta? clm [facility] 12-07-2024 History of Presen t illness Narrative Associated Problem(s): Metabolic syndrome Increase mounjaro. Associated Problem(s): Major depressive disorder, recurrent episode, mild Symptoms stable and continue prozac. Continue to wean off cymbalta. Associated Problem(s): Generalized anxiety disorder Reports symptoms controlled and monitor. Use ativan PRN. Associated Problem(s): Benign essential hypertension BP controlled and monitor PRN. Associated Problem(s): ADD (attention deficit disorder) without hyperactivity Symptoms worse and resume concerta. Images from the original note were not included. Subjective Patient ID: Gissel Del Rosario is a 39 y.o. female who presents for Follow-up (3m/ADD medication/Zofran & lorazapam). Follow up HTN, depression, anxiety, and weight. Checking BP PRN and typically controlled. BP normal today. Taking medication daily and tolerating without side effects. Depression improved. Not as down or sad and feels happier. Interacting well with others. Wants to continue to wean off cymbalta. Anxiety slightly worse this time of year around dad's birthday and anniversary of his . Overall anxiety stable. Not as stressed out or overwhelmed. Not as nervous or worry as much. Not as moura or irritable. Uses ativan PRN and helps. Concerned of ADD. 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 Notice poor focus and hard to stay organized. Harder to complete tasks and distracted. Starting to affect work and wants to resume medication. Weight down 9 pounds with mounjaro. Remains active and exercising several days a week. Tries to watch diet and eat healthy. Increased fruits and vegetables. Smaller portions and limits snacking. Tries to limit total daily calories. Review of Systems Respiratory: Negative for cough, [...] Items Addressed This Visit Benign essential hypertension - Primary BP controlled and monitor PRN. Generalized anxiety disorder Reports symptoms controlled and monitor. Use ativan PRN. Relevant Medications LORazepam (Ativan) 0.5 MG tablet Major depressive disorder, recurrent episode, mild Symptoms stable and continue prozac. Continue to wean off cymbalta. Metabolic syndrome Increase mounjaro. Relevant Medications Tirzepatide 7.5 MG/0.5ML solution auto-injector ADD (attention deficit disorder) without hyperactivity Symptoms worse and resume concerta. Relevant Medications methylphenidate ER (Concerta) 27 MG CR tablet Other Visit Diagnoses Nausea Relevant Medications ondansetron ODT (Zofran-ODT) 8 MG disintegrating tablet documented in this encounter [facility] 09-06-2024 History of Presen t illness Narrative Associated Problem(s): Metabolic syndrome Start tirzepatide. Associated Problem(s): Major depressive disorder, recurrent episode, mild (HCC) (CMS/HCC) Symptoms stable and continue prozac. Continue to wean off cymbalta. Associated Problem(s): Low serum cortisol level Labs abnormal and refer to endo. Associated Problem(s): Chronic fatigue Continued symptoms and abnormal labs. Refer to endo. Associated Problem(s): Benign essential hypertension (CMS/HCC) BP controlled and monitor PRN. Images from the original note were not included. Subjective Patient ID: Gissel Del Rosario is a 39 y.o. female who presents for Follow-up (3 m f/up). Follow up HTN, fatigue, depression, and weight. Checking BP PRN and typically controlled. BP normal today. Taking medication daily and tolerating without side effects. No change in fatigue. Seen by endo for fatigue and low cortisol. Thyroid function abnormal but endo wasn't concerned. Patient felt like he wasn't listening to her concerns and only focused on cortisol. Requests second opinion. Depression controlled and weaning of cymbalta. Not down or sad and feels happier. Weight up and remains on ozempic. Stays active and exercises several days a week. Tries to watch diet and eat healthy. Increased fruits and vegetables. Smaller portions and limits snacking. Tries to limit total daily calories. Review of Systems Respiratory: Negative for cough, [...] Benign essential hypertension (CMS/HCC) - Primary BP controlled and monitor PRN. Major depressive disorder, recurrent episode, mild (HCC) (CMS/HCC) Symptoms stable and continue prozac. Continue to wean off cymbalta. Relevant Medications DULoxetine (Cymbalta) [address] capsule Metabolic syndrome Start tirzepatide. Relevant Medications Tirzepatide 2.5 MG/0.5ML solution auto-injector Chronic fatigue Continued symptoms and abnormal labs. Refer to endo. Relevant Orders Ambulatory referral to Endocrinology Low serum cortisol level Labs abnormal and refer to endo. Relevant Orders Ambulatory referral to Endocrinology documented in this encounter [facility] 08-03-2024 History of Presen t illness Narrative Gissel Del Rosario is a 39 y.o. 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 She has extensive history of clots, negative for factor V Leiden and other mutations, and can not be on estrogen. SUBJECTIVE: MEDICATIONS: Current Outpatient Medications Medication Instructions acetaminophen (TYLENOL) 1,000 mg, Every 8 hours PRN grdexvjprt-sqxoonsvflajo-mbktml ne 50-325-40 MG tablet 1 tablet, Oral, 4 times daily PRN cholecalciferol (Vitamin D-3) 50 MCG (1999) tablet 1 tablet, Daily DULoxetine (CYMBALTA) 60 mg, Oral, Daily Effer-K 20 MEQ effervescent tablet FLUoxetine (PROZAC) 20 mg, Oral, Daily ibuprofen 800 mg, Every 8 hours PRN lisinopril 10 mg, Oral, Every morning metoprolol succinate XL (TOPROL-XL) 25 mg, Oral, Every morning omeprazole (PRILOSEC) 40 mg, Oral, Daily ondansetron [...] glycol (PEG) 3350 (MIRALAX) 17 g, Once promethazine (PHENERGAN) 50 mg, Oral, Every 6 hours PRN tamsulosin (Flomax) 0.4 MG 24 hr capsule topiramate 50 MG tablet 1 tablet, Oral, 2 times daily ALLERGIES: Allergies Allergen Reactions Vesicare [Solifenacin] Past Medical History: Diagnosis Date Arthralgia, unspecified [...] Sacro-iliac pain Tonsillar hypertrophy Vitamin D deficiency Past Surgical History: Procedure Laterality Date SECTION, CLASSIC 2011 COLONOSCOPY 2009 COLONOSCOPY 2013 EGD 2009 EGD 2013 ENDOMETRIAL ABLATION 2012 Novasure HYSTERECTOMY 04/16/2015 LITHOTRIPSY 2015 TONSILLECTOMY 2015 and adenoidectomy US GUIDED SOFT TISSUE BIOPSY 11/30/2023 US GUIDED SOFT TISSUE BIOPSY REVIEW OF SYMPTOMS: 14 POINT OF SYSTEM REVIEWED AND NEGATIVE OBJECTIVE: Visit Vitals BP 120/86 Pulse 82 Resp 18 Ht 5' 2 Wt 157 lb SpO2 96% BMI 28.72 kg/m OB Status Hysterectomy Smoking Status Never BSA 1.76 m Physical Exam Constitutional: Appearance: Normal appearance. She is normal weight. HENT: Head: Normocephalic and atraumatic. Right Ear: External ear normal. Nose: Nose normal. Mouth/Throat: Pharynx: Oropharynx is clear. Eyes: Extraocular Movements: Extraocular movements intact. Pupils: Pupils are equal, round, and reactive to light. Cardiovascular: Rate and Rhythm: Normal rate and regular rhythm. Pulmonary: Effort: Pulmonary effort is normal. Abdominal: General: Abdomen is flat. Palpations: Abdomen is soft. Musculoskeletal: General: Normal range of motion. Skin: General: Skin is warm. Neurological: General: No focal deficit present. Mental Status: She is alert. Psychiatric: Mood and Affect: Mood normal. Behavior: Behavior normal. ASSESSMENT AND PLAN: Assessment/Plan Diagnoses and all orders for this visit: Low serum cortisol level - Ambulatory referral to Endocrinology - ACTH stimulation, 3 time points; Future We will do ACTH stim test to rule out adrenal insufficiency since cortisol in the low side. Abnormal thyroid function test TSH in the low side, free T4 within normal limits, free T3 in the low side, clinically euthyroid no need for medication we will watch Chronic fatigue No thyroid disease Primary hypertension (CMS/HCC) H/O of hysterectomy with bilateral oophorectomy Can not be on estrogen due to history of clots Follow up in about 6 months (around 02/02/2025). documented in this encounter [facility] 07-04-2024 History of Presen t illness Narrative Reason for Appointment: Patient ID: Gissel Del Rosario is a 39 y.o. female who presents for Gynecologic Exam Patient presents today for Annual Exam. MEDICATIONS Current Outpatient Medications Medication Instructions acetaminophen (TYLENOL) 1,000 mg, Every 8 hours PRN fuisogfkgi-auaneyqdihtux-ysbbnw ne 50-325-40 MG tablet 1 tablet, Oral, 4 times daily PRN cholecalciferol (Vitamin D-3) 50 MCG (1999 [place]) tablet 1 tablet, Daily DULoxetine (CYMBALTA) 60 mg, Oral, Daily Effer-K 20 MEQ effervescent tablet FLUoxetine (PROZAC) 20 mg, Oral, Daily ibuprofen 800 mg, Every 8 hours PRN lisinopril 10 mg, Oral, Every morning metoprolol succinate XL (TOPROL-XL) 25 mg, Oral, Every morning omeprazole (PRILOSEC) 40 mg, Oral, Daily ondansetron [...] glycol (PEG) 3350 (MIRALAX) 17 g, Once promethazine (PHENERGAN) 50 mg, Oral, Every 6 hours PRN tamsulosin (Flomax) 0.4 MG 24 hr capsule topiramate 50 MG tablet 1 tablet, Oral, 2 times daily ALLERGIES Allergies Allergen Reactions Vesicare [Solifenacin] PROBLEMS Active Ambulatory Problems Diagnosis Date Noted Benign essential hypertension ([facility]/HCC) 10/10/2022 Dysfunctional uterine bleeding 10/10/2022 Arthralgia 04/08/2023 Chronic migraine without aura (CMS/HCC) 04/08/2023 DDD (degenerative disc disease), lumbar 04/08/2023 Endometriosis 04/08/2023 Generalized anxiety disorder (CMS/HCC) 04/08/2023 Gastroesophageal reflux disease 04/08/2023 Major depressive disorder, recurrent episode, mild (HCC) (CMS/[facility]) 04/08/2023 Metabolic syndrome 04/08/2023 Vitamin D insufficiency 04/08/2023 Sinus tachycardia 04/08/2023 Hypokalemia 04/08/2023 Personal history of venous thrombosis and embolism 03/24/2011 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 06/04/2023 Left lateral epicondylitis 05/31/2024 Chronic fatigue 06/10/2024 Low serum cortisol level 06/10/2024 Resolved Ambulatory Problems Diagnosis Date Noted Asthma (CMS/HCC) 10/10/2022 Leukocytosis 10/10/2022 Mixed anxiety and depressive disorder 10/10/2022 Morbid obesity (CMS/HCC) 04/08/2023 Past Medical History: Diagnosis Date Arthralgia, unspecified [...] Surgical History: Procedure Laterality Date SECTION, CLASSIC 2011 COLONOSCOPY 2009 COLONOSCOPY 2013 EGD 2009 EGD 2013 ENDOMETRIAL ABLATION 2012 Novasure HYSTERECTOMY 04/16/2015 LITHOTRIPSY 2015 TONSILLECTOMY 2014 and adenoidectomy US GUIDED SOFT TISSUE BIOPSY 11/30/2023 US GUIDED SOFT TISSUE BIOPSY REVIEW OF SYSTEMS Review of Systems: Review of Systems All other systems reviewed and are negative. OBJECTIVE Objective: Physical Exam Constitutional: Appearance: Normal appearance. She is well-developed. Genitourinary: Vulva normal. Genitourinary Comments: Left breast @ 2o'clock position Vaginal cuff intact. Right Adnexa: not tender and no mass present. Left Adnexa: not tender and no mass present. Cervix is absent. No cervical discharge. Uterus is absent. Breasts: Breasts are soft. Right: Normal. Left: Mass present. HENT: Head: Normocephalic. Nose: Nose normal. Mouth/Throat: Mouth: Mucous membranes are moist. Cardiovascular: Rate and Rhythm: Normal rate and regular rhythm. Pulmonary: Effort: Pulmonary effort is normal. Abdominal: General: Bowel sounds are normal. There is no distension. Palpations: Abdomen is soft. Tenderness: There is no abdominal tenderness. There is no guarding or rebound. Musculoskeletal: General: No swelling. Normal range of motion. Cervical back: Normal range of motion. Right lower leg: No edema. Left lower leg: No edema. Neurological: General: No focal deficit present. Mental Status: She is alert and oriented to person, place, and time. Skin: General: Skin is warm and dry. Psychiatric: Mood and Affect: Mood normal. Behavior: Behavior normal. Vitals and nursing note reviewed. Exam conducted with a office support assistant present. Vitals: Estimated body mass index is 28.53 kg/m as calculated from the following: Height as of 06/10/24: 5' 2 . Weight as of 06/10/24: 156 lb. BP: No LMP recorded. Patient has had a hysterectomy. ASSESSMENT & PLAN ICD-10-CM 1. Well woman exam with routine gynecological exam Z01.419 Pap Smear HPV DNA probe, amplified 2. H/O: hysterectomy Z90.710 Annual Exam: Patient presents today for an annual exam. Patient states she is doing well and has no complaints. Pap was obtained without difficulty. Patient voiced that she already had medication sent to [facility] for Progesterone/Testosterone prescription that was previously sent on 06/02/24--Patient will fill out packet and drop it back off to office for Vee to get sent to [facility]. Orders Placed This Encounter Procedures HPV DNA probe, amplified Follow Up: Patient is to return in one year for annual unless needed otherwise. Documented by Karishma Ramos MA on behalf of: Compa Valenzuela DO documented in this encounter [facility] 06-10-2024 History of Presen t illness Narrative Associated Problem(s): Major depressive disorder, [...] ovaries and developed menopausal symptoms. Seen by tanker service attendant and several labs ordered. Prescribed compounded vaginal [...] referral to Endocrinology documented in this encounter [facility] 06-02-2024 History of Presen t illness Narrative Reason for Appointment: Patient ID: Gissel Del Rosario is a 38 y.o. female who presents for Menopausal Symptoms Patient presents today for Consult appointment. MEDICATIONS Current Outpatient Medications Medication Instructions acetaminophen (TYLENOL) 1,000 mg, Every 8 hours PRN jfpztzjqvc-gufnrabfhyext-knywmi ne 50-325-40 MG tablet 1 tablet, Oral, 4 times daily PRN cholecalciferol (Vitamin D-3) 50 MCG (2000 [place]) tablet 1 tablet, Daily DULoxetine (CYMBALTA) 60 mg, Oral, 2 times daily Effer-K 20 MEQ effervescent tablet HYDROcodone-acetaminophen ([place]) 5-325 MG tablet 1 tablet, Every 6 [...] Problems Diagnosis Date Noted Benign essential hypertension ([facility]) 10/10/2022 Dysfunctional uterine bleeding 10/10/2022 Arthralgia 04/08/2023 Chronic migraine without aura ([facility]/HCC) 04/08/2023 DDD (degenerative disc disease), lumbar 04/08/2023 Endometriosis 04/08/2023 Generalized anxiety disorder (CMS/HCC) 04/08/2023 Gastroesophageal reflux disease 04/08/2023 Major depressive disorder, recurrent episode, mild (HCC) (CMS/HCC) 04/08/2023 Metabolic syndrome 04/08/2023 Morbid obesity ([facility]/HCC) 04/08/2023 Vitamin D insufficiency 04/08/2023 Sinus tachycardia 04/08/2023 Hypokalemia 04/08/2023 Personal history of venous thrombosis and embolism 03/24/2011 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 Exam conducted with a office support assistant present. Vitals: Estimated body mass index is [...] if she decides to have consult with [facility] Patient to return to office fir annual appointment. Nursing will send prescription to [facility] to at least start vaginal cream after having labs drawn. Documented by Vee Call LPN on behalf of: Compa Valenzuela DO documented in this encounter [facility] 05-31-2024 History of Presen t illness Narrative [...] 50 MG tablet documented in this encounter [facility] 12-23-2023 Hospital Discharg e instructions Patient Education [...] Follow these instructions at home: Medicines Take ibyv-rwi-illazss and prescription medicines only as told by [...] prevent or treat constipation, such as: ?Take wqim-zye-iloqvvb or prescription medicines. ?Eat foods that are [...] provider. Document Revised: 08/27/2022 Document Reviewed: 12/23/2021 [employer] Patient Education 2022 [employer]. 12/23/2023 14:47:10 Laser Therapy for Kidney Stones [...] including vitamins, herbs, eye drops, creams, and vgrq-pck-itapumd medicines. Any problems you or family members [...] provider tells you to take them. ?Taking gizn-dhi-cjqyjzb medicines, vitamins, herbs, and supplements. Eating and [...] provider. Document Revised: 08/27/2022 Document Reviewed: 12/23/2021 [employer] Patient Education 2022 [employer]. Follow Up Care 12/22/2023 08:45:54 With:VANESSA LYLES, Bryant Carlos, URL Address: [facility] [address] , [place] [address]- [phone] When: Unknown Comments:saeid L URS/laser litho/possible stent plaement [facility] 12-23-2023 Note Patient Education Nephrology Laser [...] these instructions at home: Medicines ? Take vweq-scg-sccbgzm and prescription medicines only as told by [...] or treat constipation, such as: ? Take lrnh-bai-zadtamq or prescription medicines. ? Eat foods that [...] provider. Document Revised: 08/27/2022 Document Reviewed: 12/23/2021 [employer] Patient Education ? 2022 [employer] Laser Therapy for Kidney Stones Laser [...] including vitamins, herbs, eye drops, creams, and hovk-sbu-jalepqe medicines. ? Any problems you or family [...] by a f (more content not included)... [facility] 06-11-2023 History of Presen t illness Narrative Associated Problem(s): Sinus tachycardia Symptoms stable with toprol and continue. 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 Associated Problem(s): Benign essential hypertension (CMS/HCC) BP remains low and stop zestoretic. Start lisinopril daily and monitor BP. Subjective Patient ID: Gissel Del Rosario is a 37 y.o. female who presents for Follow-up (1m). Follow up HTN, tachycardia, and abdominal mass. Patient continues to have abdominal pain. Seen by tanker service attendant and felt mass related to endometriosis in [...] scar Continued pain and follow up with tanker service attendant for surgery. documented in this encounter [facility] 04-08-2023 History of Presen t illness Narrative [...] was negative but is to see a electrogalvanizing machine operator to further work this up as well. Jeremy Jang MD documented in this encounter [facility] Work Phone: 03-24-2023 History of Presen t [...] hernia specialists. --I will discuss with her real estate agent the value of abdominal exploration for additional [...] MPH @TIMECUR@ @DATECUR@ documented in this encounter [facility] Work Phone: 09-05-2022 Evaluation note Encounter Date [...] understanding and is agreeable with treatment plan. [employer] Other [id number] NotePROCEDURE: XR PELVIS W_OBL MIN 3 VIEWS COMPARISON: HISTORY: Disorder of sacrum FINDINGS: BONES:No fracture, acute abnormality, or significant arthropathy. SOFT TISSUES:Negative. No visible soft tissue swelling. EFFUSION:None visible. OTHER: Negative. IMPRESSION: No acute abnormality Electronically authenticated by: ASHLEY CARRANZA Date: 2021-09-28 07:58[facility]05-28-2022 NotePROCEDURE: XR TIB_FIB LT 2V COMPARISON: 07/17/2020 HISTORY: Pain in left leg FINDINGS: BONES:No acute fracture or dislocation. Stable sclerosis along the distal tibia. Enthesopathic spurring plantar calcaneus SOFT TISSUES:Negative. No visible soft tissue swelling. EFFUSION:None visible. OTHER: Negative. IMPRESSION: Stable exam, no interval change Electronically authenticated by: ASHLEY CARRANZA Date: 2021-09-28 07: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 Endometriosis in scar of skin [facility] [...] episode, mild [facility] [...] (CMS/HCC) Major depressive disorder, recurrent episode, mild Well woman exam with routine gynecological exam Routine gynecological examination H/O: hysterectomy Acquired absence of both cervix and uterus Breast lump on left side at 2 o'clock position Lump or mass in breast Encounter for screening mammogram for malignant neoplasm of breast documented in this encounter [facility]* Diagnosis Heart palpitations- Primary Palpitations [...] (CMS/HCC) Major depressive disorder, recurrent episode, mild Low serum cortisol level- Primary Chronic fatigue Other malaise and fatigue Primary hypertension (CMS/HCC) Unspecified essential hypertension H/O of hysterectomy with bilateral oophorectomy Abnormal thyroid function test Nonspecific abnormal results of thyroid function study documented in this encounter [facility] HealthcareEvaluation note* Diagnosis Heart palpitations- Primary Palpitations [...] (CMS/HCC) Major depressive disorder, recurrent episode, mild Benign essential hypertension (CMS/HCC)- Primary Essential hypertension, benign Chronic fatigue Other malaise and fatigue Low serum cortisol level Major depressive disorder, recurrent episode, mild (HCC) (CMS/HCC) Major depressive disorder, recurrent episode, mild Metabolic syndrome Dysmetabolic Syndrome X documented in this encounter [facility]* Diagnosis Heart palpitations- Primary Palpitations Benign essential hypertension Essential hypertension, benign Generalized anxiety disorder Generalized anxiety disorder Hypokalemia Hypopotassemia Benign essential hypertension- Primary Essential hypertension, benign Sinus tachycardia Other specified cardiac dysrhythmias Benign essential hypertension- Primary Essential hypertension, benign Sinus tachycardia Other specified cardiac dysrhythmias 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 Endometriosis in scar of skin Left lateral epicondylitis- Primary Arthralgia, unspecified joint- Primary Chronic fatigue Other malaise and fatigue Low serum cortisol level Major depressive disorder, recurrent episode, mild Major depressive disorder, recurrent episode, mild Benign essential hypertension- Primary Essential hypertension, benign Chronic fatigue Other malaise and fatigue Low serum cortisol level Major depressive disorder, recurrent episode, mild Major depressive disorder, recurrent episode, mild Metabolic syndrome Dysmetabolic Syndrome X Benign essential hypertension- Primary Essential hypertension, benign Major depressive disorder, recurrent episode, mild Major depressive disorder, recurrent episode, mild Generalized anxiety disorder Generalized anxiety disorder ADD (attention deficit disorder) without hyperactivity Attention deficit disorder without mention of hyperactivity Metabolic syndrome Dysmetabolic Syndrome X Nausea Nausea alone documented in this encounter [facility] note* Diagnosis Heart palpitations- Primary Palpitations Benign essential hypertension Essential hypertension, benign Generalized anxiety disorder Generalized anxiety disorder Hypokalemia Hypopotassemia Benign essential hypertension- Primary Essential hypertension, benign Sinus tachycardia Other specified cardiac dysrhythmias Benign essential hypertension- Primary Essential hypertension, benign Sinus tachycardia Other specified cardiac dysrhythmias 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 Endometriosis in scar of skin Left lateral epicondylitis- Primary Arthralgia, unspecified joint- Primary Chronic fatigue Other malaise and fatigue Low serum cortisol level Major depressive disorder, recurrent episode, mild Major depressive disorder, recurrent episode, mild Benign essential hypertension- Primary Essential hypertension, benign Chronic fatigue Other malaise and fatigue Low serum cortisol level Major depressive disorder, recurrent episode, mild Major depressive disorder, recurrent episode, mild Metabolic syndrome Dysmetabolic Syndrome X Benign essential hypertension- Primary Essential hypertension, benign Major depressive disorder, recurrent episode, mild Major depressive disorder, recurrent episode, mild Generalized anxiety disorder Generalized anxiety disorder ADD (attention deficit disorder) without hyperactivity Attention deficit disorder without mention of hyperactivity Metabolic syndrome Dysmetabolic Syndrome X Nausea Nausea alone ADD (attention deficit disorder) without hyperactivity Attention deficit disorder without mention of hyperactivity documented in this encounter [facility] note* Diagnosis Onset Date Resolution Status Admit Date COVID-19 acute January 9:03am Left acute otitis media acute S eptember 2024 9:03am Contact with and (suspected) exposure to covid-19 noneactive January 15, 2025 9:03am Sore throat noneactive January 9:03am [facility] Work Phone: History general Narrative - Reported* Type Description Date Medical History HTN (hypertension) Medical History Anxiety and depression Medical History migraine headache Medical History seasonal allergies Surgical History essure Surgical History EGD Surgical History C section Surgical History hysterectomy 2015 Hospitalization History PE Hospitalization History child x3 Hospitalization History demise x1 Image Searcher Other Progress note No data available for this section [facility] Reason for referral (narrative)No reason for referral information availableGood [facility] Work Phone: Summary Purpose Family History Relationship Condition Age at Onset Recorded Date/T ailyn father Hypertension Unknown mother Hypertension Unknown Advance Directives Advance Directive Response Recorded Date/ Time Advance Directives No March 3:54pm Chief Complaint and Reason for Visit Chief Complaint Admit Date Sore throat January 15, 2025 9:03am Reason for Visit Admit Date COVID-19 January 15, 2025 9:03am Left acute otitis media January 15, 2025 9:03am Contact with and (suspected) exposure to covid-19 January 15, 2025 9:03am Sore throat January 15, 2025 9:03am Additional Source Comments INFORMATION SOURCE (unrecogn ized section and content) DATE CREATED AUTHOR 08/10/2022 [facility] DATE CREATED AUTHOR AUTHOR'S ORGANIZ ATION 03/26/2023 [facility] DATE CREATED AUTHOR AUTHOR'S ORGANIZ ATION 05/24/2023 [facility] DATE CREATED AUTHOR AUTHOR'S ORGANIZ ATION 06/18/2023 [facility] DATE CREATED AUTHOR AUTHOR'S ORGANIZ ATION 01/07/2024 [facility] DATE CREATED AUTHOR AUTHOR'S ORGANIZ ATION 01/14/2024 [facility] DATE CREATED AUTHOR AUTHOR'S ORGANIZ ATION 06/19/2024 [facility] DATE CREATED AUTHOR AUTHOR'S ORGANIZ ATION 07/19/2024 [facility] DATE CREATED AUTHOR AUTHOR'S ORGANIZ ATION 08/22/2024 [facility] DATE CREATED AUTHOR AUTHOR'S ORGANIZ ATION 12/09/2024 [facility] EPIC REASON FOR VISIT (unrecogniz ed section and content) Reason Comments New Patient Visit Reason Comments Endometriosis Specialty Diagnoses / Procedures Referred By Contac t Referred To Contact General Surgery Diagnoses Endometrioma Vu Juarez MD [facility] [address] Department of Surgery-Surgical Oncology [place] [phone] [place] [address] [facility] [facility] of Surgery-[place] [id number] Referral ID Status Reason Start Date Expiration Date Visits Requested Visits Authorized [id number] Authorized Specialty Services Required 3 03/30/2024 1 1 Reason Comments Follow-up 1m Reason Comments Follow-up Elbow pain Sinusitis Reason Comments Menopausal Symptoms Reason Comments Follow-up Go over labs Reason Comments Gynecologic Exam Reason Comments CORTISOL NEW REF/LAB Specialty Diagnoses / Procedures Referred By Contac t Referred To Contact Endocrinology Diagnoses Chronic fatigue Low serum cortisol level Procedures MD OFFICE/OUTPATIENT NEW HIGH MDM 60 MINUTES Joseph Sotelo MD [address] [place] [address] Phone: tel: fax: Ruthy Strauss MD [address] [facility] [address] [place] [address] Phone: tel: fax: Referral ID Status Reason Start Date Expiration Date V isits Requested Visits Authorized [id number] Closed Specialty Services Required 06/10/2024 12/07/2024 1 1 Reason Comments Follow-up 3 m f/up Reason Comments Follow-up 3mADD medicationZofr an & lorazapam Care Teams (unrecognized sec tion and content) Storekeeper Steward Relationship Specialty Start Date End Date Joseph Sotelo MD PCP - General Family Medicine 03/18/23 Storekeeper Steward Relationship Specialty Start Date End Date Joseph Sotelo MD [address] [place] [address] PCP - General Family Medicine 04/02/23 Storekeeper Steward Relationship Specialty Start Date End Date Joseph Sotelo MD PCP - General Cardiology 10/15/22 Storekeeper Steward Relationship Specialty Start Date End Date Joseph Sotelo MD PCP - General Cardiology 10/15/22 Storekeeper Steward Relationship Specialty Start Date End Date Joseph Sotelo MD PCP - General Cardiology 10/15/22 Joseph Sotelo MD [address] [place] [address] PCP - [employer] 08/03/23 Storekeeper Steward Relationship Specialty Start Date End Date Joseph Sotelo MD PCP - General Cardiology 10/15/22 Joseph Sotelo MD [address] [place] [address] PCP - [employer] 08/03/23 Storekeeper Steward Relationship Specialty Start Date End Date Joseph Sotelo MD PCP - General Cardiology 10/15/22 Joseph Sotelo MD [address] [place] [address] PCP - [employer] 08/03/23 Storekeeper Steward Relationship Specialty Start Date End Date Joseph Sotelo MD [address] [place] [address] PCP - [employer] 08/03/23 Joseph Sotelo MD [address] [place] [address] PCP - General Family Medicine 05/31/24 Storekeeper Steward Relationship Specialty Start Date End Date Joseph Sotelo MD [address] [place] [address] PCP - [employer] 08/03/23 Joseph Sotelo MD [address] [place] [address] PCP - General Family Medicine 05/31/24 Storekeeper Steward Relationship Specialty Start Date End Date Joseph Sotelo MD [address] [place] [address] PCP - [employer] 08/03/23 Joseph Sotelo MD [address] [place] [address] PCP - General Family Medicine 05/31/24 Storekeeper Steward Relationship Specialty Start Date End Date Joseph Sotelo MD [address] [place] [address] PCP - [employer] 08/03/23 Joseph Sotelo MD [address] [place] [address] PCP - General Family Medicine 05/31/24 Storekeeper Steward Relationship Specialty Start Date End Date Joseph Sotelo MD [address] [place] [address] PCP - [employer] 08/03/23 Joseph Sotelo MD [address] [place] [address] PCP - General Family Medicine 05/31/24 Storekeeper Steward Relationship Specialty Start Date End Date Joseph Sotelo MD [address] [place] [address] PCP - [employer] 08/03/23 Joseph Sotelo MD [address] [place] [address] PCP - General Family Medicine 05/31/24 Storekeeper Steward Relationship Specialty Start Date End Date Joseph Sotelo MD [address] [place] [address] PCP - [employer] 08/03/23 Joseph Sotelo MD [address] [place] [address] PCP - General Family Medicine 05/31/24 Storekeeper Steward Relationship Specialty Start Date End Date Joseph Sotelo MD [address] [place] [address] PCP - [employer] 08/03/23 Joseph Sotelo MD [address] [place] [address] PCP - General Family Medicine 05/31/24 Storekeeper Steward Relationship Specialty Start Date End Date Joseph Sotelo MD [address] [place] [address] PCP - [employer] 08/03/23 Joseph Sotelo MD [address] [place] [address] PCP - General [facility] 05/31/24 Storekeeper Steward Relationship Specialty Start Date End Date Joseph Sotelo MD [address] [place] [address] PCP - [employer] 08/03/23 Joseph Sotelo MD [address] [place] [address] PCP - General [facility] 05/31/24 Storekeeper Steward Relationship Specialty Start Date End Date Joseph Sotelo MD [address] [place] [address] PCP - [employer] 08/03/23 Joseph Sotelo MD [address] [place] [address] PCP - General Family Medicine 05/31/24 Storekeeper Steward Relationship Specialty Start Date End Date Joseph Sotelo MD [address] [place] [address] PCP - [employer] 08/03/23 Joseph Sotelo MD [address] [place] [address] PCP - [facility] 05/31/24 Storekeeper Steward Relationship Specialty Start Date End Date Joseph Sotelo MD [address] [place] [address] PCP - [facility] 08/03/23 Joseph Sotelo MD [address] [place] [address] PCP - [facility] 05/31/24 Storekeeper Steward Relationship Specialty Start Date End Date Joseph Sotelo MD [address] [place] [address] PCP - [facility] 08/03/23 Joseph Sotelo MD [address] [place] [address] PCP - [facility] 05/31/24 Team Status: Active Member Role Status Dates Shahana Larson DO Primary Care Provider Active Team Status: Inactive Member Role Status Dates Shahana Larson DO Primary Care Provider Active Start: January 15, 2025 End: January 15, 2025 Sophia Ureña APRN MEDICAL EXAMINER-C Attending Provider Active Start: January End: January 15, 2025 Goals (unrecognized section and content) Goals may be documented in a n alternate section FOR RECORDS PERTAINING TO PATIENTS WHO ARE [...] BE BASED ON THE PRIMARY CLINICAL RECORDS. [facility]. provides no warranty or guarantee of the accuracy or completeness of information in this document.
[2025-01-27 15:52] VITALS: BP 112/68; PULSE 89; TEMP 36.9; O2SAT 100
== END 2025-01-27 17:27 | disposition home or self-care (01) ==
PROVIDERS: Physician Assistant; Emergency Provider Emergency Medicine; PCP Family Medicine
DX: N20.2 Calculus of kidney with calculus of ureter (principal); M79.662 Pain in left lower leg; Z87.442 Personal history of urinary calculi; Z86.711 Personal history of pulmonary embolism; Z86.718 Personal history of other venous thrombosis and embolism; R31.9 Hematuria, unspecified
CPT/HCPCS: 36415; 74177; 80053; 81001; 83605; 83690; 85025; 85610; 85730; 93971; 96374; 96375; 99285; J1885; J2405; Q9967